=== PATIENT | female | born 1965 | race Caucasian/White ===

== ENCOUNTER 2019-02-02 16:33 | Inpatient (IN) | payer MEDICARE, MEDICAID ==
[~2019-02-02] VITALS: Ht 154.9 cm; Wt 81.9 kg
[~2019-02-02 16:33] MED LIST: ACET325T9 PO; BENZ2TAB5 PO; CLON1TAB11 PO; CLON2TAB9 PO; DIVA250T PO; DIVA500T4 PO; DOCU-109 PO; ERGO500027 PO; EZET10TA18 PO; FURO40TA4 PO; GUAI600T79 PO; IBUP400T18 PO; ILOP12TA2 PO; LISI10TA2 PO; LOPE1LIQ7 PO; LOPE2TAB27 PO; MAG30ORA PO; MAGN2400 PO; MAGN400O7 PO; MENT1LOZ3 MM; METH29OI TP; NICO1PAT25 TD; NICO4GUM5 BC; OLAN10TA5 PO; OLAN5TAB5 PO; OMEG-33 PO; OMEP20TA8 PO; POTA20TA12 PO; RISP0.2519 PO; RISP1TAB43 PO; RISP37.5 IM; RISP50DI IM; SIMV20TA3 PO; TRAZ-120 PO
[2019-02-02 17:14] LABS: BASO % 0 % (0-3); EOS # 0.3 x10^3/uL (0.0-0.7); EOS % 3 % (0-3); HEMATOCRIT 30.5 % (36.0-47.0); HEMOGLOBIN 9.9 g/dL (12.0-15.5); LYMPH # 2.1 x10^3/uL (1.0-4.8); LYMPH % 21 % (24-48); MEAN CORPUSCULAR HEMOGLOBIN 28 pg (25-35); MEAN CORPUSCULAR HGB CONC 33 g/dL (31-37); MEAN CORPUSCULAR VOLUME 84 fL (79-100); MONO % 10 % (0-9); NEUT # 6.6 x10^3uL (1.8-7.7); NEUT % 66 % (31-73); PLATELET COUNT 337 x10^3/uL (140-400); RED BLOOD COUNT 3.61 x10^6/uL (3.50-5.40); RED CELL DISTRIBUTION WIDTH 18.6 % (11.5-14.5)
[2019-02-02 17:25] LABS: ALBUMIN 2.7 g/dL (3.4-5.0); ALBUMIN/GLOBULIN RATIO 0.6 (1.0-1.7); CALCIUM 8.9 mg/dL (8.5-10.1); CREATININE 0.8 mg/dL (0.6-1.0); MAGNESIUM 1.8 mg/dL (1.8-2.4); POTASSIUM 4.1 mmol/L (3.5-5.1); TOTAL BILIRUBIN 0.1 mg/dL (0.2-1.0); TOTAL PROTEIN 6.9 g/dL (6.4-8.2)
--- NOTE | 2019-02-02 17:27 | PHYS DOC ---
Past History Past Medical History: Dementia, Hypertension, Schizophrenia Past Surgical History: No Surgical History Alcohol Use: None Drug Use: None Adult General Chief Complaint Chief Complaint: PSYCH EVALUATION HPI HPI Patient is a 53-year-old female who presents with psych evaluation. The patient has been hypersexual difficult to control she has a history of schizoaffective disorder she is coming from [place] she is with 2 members of the staff at the [facility] where she is staying Review of Systems Review of Systems Difficult to obtain due to psychosis Patient talks about [employer] and [employer] and [employer] etc. etc. etc. Allergies Allergies Allergies Coded Allergies Type Severity Reaction Last Updated Verified haloperidol Allergy Intermediate 12/21/15 Yes Physical Exam Physical Exam Constitutional: Well developed, well nourished, no acute distress, non-toxic appearance. [] HENT: Normocephalic, atraumatic, bilateral external ears normal, oropharynx moist, no oral exudates, nose normal. [] Eyes: PERRLA, EOMI, conjunctiva normal, no discharge. [] Neck: Normal range of motion, no tenderness, supple, no stridor. [] Pulmonary: Normal respiratory effort no increased work of breathing no obvious chest wall trauma Skin: Warm, dry, no erythema, no rash. [] Extremities: No tenderness, no cyanosis, no clubbing, ROM intact, no edema. [] Neurologic: Alert and oriented X 3, normal motor function, normal sensory function, no focal deficits noted. [] Psychologic: Patient appears acutely psychotic talking about several things that don't make any sense including large volumes of money law degree and medical degree from [place] etc. Current Patient Data Vital Signs Vital Signs Date Time Temp Pulse Resp B/P (MAP) Pulse Ox O2 Delivery O2 Flow Rate FiO2 02/02/19 17:05 98.1 75 18 98 Room Air BP 118/102 Lab Results Laboratory Tests Test 02/02/19 16:57 White Blood Count 10.0 x10^3/uL (4.0-11.0) Red Blood Count 3.61 x10^6/uL (3.50-5.40) Hemoglobin 9.9 g/dL (12.0-15.5) L Hematocrit 30.5 % (36.0-47.0) L Mean Corpuscular Volume 84 fL (79-100) Mean Corpuscular Hemoglobin 28 pg (25-35) Mean Corpuscular Hemoglobin Concent 33 g/dL (31-37) Red Cell Distribution Width 18.6 % (11.5-14.5) H Platelet Count 337 x10^3/uL (140-400) Neutrophils (%) (Auto) 66 % (31-73) Lymphocytes (%) (Auto) 21 % (24-48) L Monocytes (%) (Auto) 10 % (0-9) H Eosinophils (%) (Auto) 3 % (0-3) Basophils (%) (Auto) 0 % (0-3) Neutrophils # (Auto) 6.6 x10^3uL (1.8-7.7) Lymphocytes # (Auto) 2.1 x10^3/uL (1.0-4.8) Monocytes # (Auto) 1.0 x10^3/uL (0.0-1.1) Eosinophils # (Auto) 0.3 x10^3/uL (0.0-0.7) Basophils # (Auto) 0.0 x10^3/uL (0.0-0.2) Platelet Estimate Pending EKG EKG EKG shows a normal sinus rhythm rate of 76 no acute ischemic changes noted interpreted by me the time of encounter.[] Radiology/Procedures Radiology/Procedures [] Course & Med Decision Making Course & Med Decision Making Pertinent Labs and Imaging studies reviewed. (See chart for details) []53-year-old female here for geriatric psych placement patient has a history of schizoaffective disorder she does appear fairly psychotic overall but she is redirectable verbally. Currently labs are looking good patient is stable to transfer up to geriatric psych per usual protocol Dragon Disclaimer Dragon Disclaimer This electronic medical record was generated, in whole or in part, using a voice recognition dictation system. Departure Departure: Impression: Primary Impression: Schizoaffective disorder Disposition: ADMITTED INPATIENT Condition: STABLE Referrals: ALBERTINA BARTH (PCP) SHEREEN HANNA MD February 02, 2019 17:27
[2019-02-02 17:28] LABS: COLOR,URINE YELLOW
[2019-02-02 17:29] LABS: BACTERIA,URINE FEW /HPF (0-FEW); BILIRUBIN,URINE NEG (NEG); CLARITY,URINE HAZY; GLUCOSE,URINE NEG (NEG); NITRITE,URINE NEG (NEG); RBC,URINE OCC /HPF (0-2); SQUAMOUS EPITHELIAL CELL,UR OCC /LPF; UROBILINOGEN,URINE 0.2 mg/dL (0.2 mg/dL); WBC,URINE 0 /HPF (0-4)
[2019-02-02 17:46] LABS: % EOS 3 % (0-5); % LYMPHS 22 % (24-48); % MONOS 7 % (0-10); % SEGS 68 % (35-66); PLT ESTIMATE ADEQUATE (ADEQUATE)
[2019-02-02 17:47] LABS: ANISOCYTOSIS SLIGHT; HYPOCHROMIA SLIGHT
--- NOTE | 2019-02-02 18:45 | NUR ---
Admission Note with Justification for Admission to PSYCHIATRIC Patient admitted to PSYCHIATRIC for protective oversight for emergency stabilization of acute psychiatric crisis. Pt admitted from: [facility] on in [place] Mode of arrival: EMS thru ER for clearance Accompanied By: [facility] Staff/EMS Precipitating behaviors that initiated intake and admission: it was reported that patient had been Delusional, combative toward staff, making sexual comments to males about touching their butts, Propositioning others, belligerent and not re-directable. She had recently been at [facility] (discharge date 01/19/2019) and is refusing medications since arriving back at [facility]. Description of failure of out patient attempts at stabilization in previous setting list behavior and medication trials: redirection, distraction, recent hospitalization at [facility] from 12/21-01/19/19 with medicine changes. She had previously been at [facility] 11/2015. Behaviors and assessment findings upon admission: Patient was sloppily dressed in dirty clothes. She initially refused to allow assessment. Staff removed her clothing to launder and label it. She was changed into a hospital gown. Staff found a spoon and sunflower seeds while changing patient. She was found to be belligerent and threatening toward staff. 4 staff members were in room at the time of assessment. Patient has HX of herpes, no active outbreak noted at this time. Patient yelling at nurse, cursing, insulting staff and very verbally aggressive. Vital signs obtained, belongings inventoried, brief head to toe examination preformed. Pt blood pressure elevated as patient was angry and yelling, flushed in the face. Patient offered box lunch, she refused. Patient accepted glass of ice water. Patient delusional, she stated that she was in penitentiary and we were torturing her. She also stated that she had an associates, a bachelors and a doctorate degree from [employer]. 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 She made lewd sexual comments and stated that "the girls at [employer] stuck their fingers in her pussy hole". Patient then stated that she was going to bed and laid down. Patient alert, oriented to self and [place] but stated she is in [facility] because her family uses drugs and blames her. She refused to answer any of the other orientation questions and ordered staff out of her room. Plan: Admit for protective oversight for adjustment and stabilization of medications, behaviors and mood. Intense treatment regimen including groups, medication adjustments, therapy, consistent regimen for ADL's, self care, and sleep hygiene. Daily monitoring by Inpatient staff, Psychiatry, and Medical Physician.
[2019-02-02 18:53] VITALS: BP 144/101
--- NOTE | 2019-02-02 19:00 | NUR ---
Patient calling staff "Fucking bitches", "Fat old ugly lesbian" and "Fucking N-word". She demanded that staff leave the room.
[2019-02-02] MEDS ORDERED: ACETAMINOPHEN 325 MG TABLET PO PRN (20:00)
[2019-02-02] MEDS ORDERED: METHYL SALICYLATE/MENTHOL TOPICAL OINTMENT 29GM TUBE. TP PRN (20:00)
[2019-02-02] MEDS ORDERED: MAGNESIUM HYDROXIDE 2,400 MG/30 ML ORAL.SUSP. PO PRN (20:00)
[2019-02-02] MEDS ORDERED: MAG HYDROX/AL HYDROX/SIMETH 30 ML ORAL.SUSP PO PRN (20:00)
[2019-02-02] MEDS ORDERED: METO25TA4 PO (20:17)
[2019-02-02] MEDS ORDERED: ATOR10TA60 PO (20:17)
[2019-02-02] MEDS ORDERED: LISI10TA2 PO (20:17)
[2019-02-02] MEDS ORDERED: ASPI-630 PO (20:17)
[2019-02-02] MEDS ORDERED: SENN-80 PO (20:17)
[2019-02-02] MEDS ORDERED: CELE200C PO (20:17)
[2019-02-02] MEDS ORDERED: ACYC-63 PO (20:17)
[2019-02-02] MEDS ORDERED: PARO20TA99 PO (20:17)
[2019-02-02] MEDS ORDERED: ISOS30TA4 PO (20:17)
[2019-02-02] MEDS ORDERED: OMEP20CA9 PO (20:17)
--- NOTE | 2019-02-02 22:35 | PDOC ---
Exam Note: Timothy Note: Please also refer to the separate dictated note~for this date of service dictated separately. Discussed the patient with Nursing staff reviewed the chart.~Reviewed interim history and current functioning. Reviewed vital signs,~Labs/ Radiology~and current medications noted below. Continue current treatment with the changes noted in the dictated addendum note Assessment: Vital Signs: Vital Signs Date Time Temp Pulse Resp B/P (MAP) Pulse Ox O2 Delivery O2 Flow Rate FiO2 02/02/19 18:53 97.6 83 20 144/101 (115) 96 02/02/19 17:05 Room Air Labs: Laboratory Tests Test 02/02/19 16:57 White Blood Count 10.0 x10^3/uL (4.0-11.0) Red Blood Count 3.61 x10^6/uL (3.50-5.40) Hemoglobin 9.9 g/dL (12.0-15.5) L Hematocrit 30.5 % (36.0-47.0) L Mean Corpuscular Volume 84 fL (79-100) Mean Corpuscular Hemoglobin 28 pg (25-35) Mean Corpuscular Hemoglobin Concent 33 g/dL (31-37) Red Cell Distribution Width 18.6 % (11.5-14.5) H Platelet Count 337 x10^3/uL (140-400) Neutrophils (%) (Auto) 66 % (31-73) Lymphocytes (%) (Auto) 21 % (24-48) L Monocytes (%) (Auto) 10 % (0-9) H Eosinophils (%) (Auto) 3 % (0-3) Basophils (%) (Auto) 0 % (0-3) Neutrophils # (Auto) 6.6 x10^3uL (1.8-7.7) Lymphocytes # (Auto) 2.1 x10^3/uL (1.0-4.8) Monocytes # (Auto) 1.0 x10^3/uL (0.0-1.1) Eosinophils # (Auto) 0.3 x10^3/uL (0.0-0.7) Basophils # (Auto) 0.0 x10^3/uL (0.0-0.2) Segmented Neutrophils % 68 % (35-66) H Lymphocytes % 22 % (24-48) L Monocytes % 7 % (0-10) Eosinophils % 3 % (0-5) Platelet Estimate Adequate (ADEQUATE) Large Platelets Occ Hypochromasia Slight Anisocytosis Slight Urine Collection Type Unknown Urine Color Yellow Urine Clarity Hazy Urine pH 5.5 Urine Specific [place] 1.010 Urine Protein Neg (NEG-TRACE) Urine Glucose (UA) Neg mg/dL (NEG) Urine Ketones (Stick) Neg mg/dL (NEG) Urine Blood Neg (NEG) Urine Nitrite Neg (NEG) Urine Bilirubin Neg (NEG) Urine Urobilinogen Dipstick 0.2 mg/dL (0.2 mg/dL) Urine Leukocyte Esterase Neg (NEG) Urine RBC Occ /HPF (0-2) Urine WBC 0 /HPF (0-4) Urine Squamous Epithelial Cells Occ /LPF Urine Bacteria Few /HPF (0-FEW) Urine Mucus Slight /LPF Sodium Level 134 mmol/L (136-145) L Potassium Level 4.1 mmol/L (3.5-5.1) Chloride Level 98 mmol/L (98-107) Carbon Dioxide Level 28 mmol/L (21-32) Anion Gap 8 (6-14) Blood Urea Nitrogen 13 mg/dL (7-20) Creatinine 0.8 mg/dL (0.6-1.0) Estimated GFR (Cockcroft-Gault) 75.0 BUN/Creatinine Ratio 16 (6-20) Glucose Level 136 mg/dL (70-99) H Calcium Level 8.9 mg/dL (8.5-10.1) Magnesium Level 1.8 mg/dL (1.8-2.4) Total Bilirubin 0.1 mg/dL (0.2-1.0) L Aspartate Amino Transferase (AST) 6 U/L (15-37) L Alanine Aminotransferase (ALT) 8 U/L (14-59) L Alkaline Phosphatase 75 U/L (46-116) Total Protein 6.9 g/dL (6.4-8.2) Albumin 2.7 g/dL (3.4-5.0) L Albumin/Globulin Ratio 0.6 (1.0-1.7) L Current Medications: Meds: Current Medications Acetaminophen (Tylenol) 650 mg PRN Q6HRS PRN PO PAIN / TEMP; Start 02/02/19 at 20:00; Stop 02/02/19 at 20:19; Status DC Multi-Ingredient Ointment (Analgesic [place]) 1 shwetha PRN QID PRN TP MUSCLE PAIN; Start 02/02/19 at 20:00 Al Hydroxide/Mg Hydroxide (Mylanta Plus Xs) 15 ml PRN AFTMEALHC PRN PO DYSPEPSIA; Start 02/02/19 at 20:00 Magnesium Hydroxide (Milk Of Magnesia) 2,400 mg PRN QHS PRN PO CONSTIPATION; Start 02/02/19 at 20:00 Nicotine (Nicoderm Cq 14mg) 1 patch DAILY TD ; Start 02/03/19 at 09:00 Acetaminophen (Tylenol) 650 mg PRN Q6HRS PRN PO PAIN / TEMP; Start 02/02/19 at 20:00 Non-Formulary Medication (Nicotine (NICODERM CQ 14mg)) 1 patch DAILY TD ; Start 02/03/19 at 09:00; Stop 02/03/19 at 09:00; Status DC Clonazepam (KlonoPIN) 1 mg TID PO ; Start 02/03/19 at 09:00 Divalproex Sodium (Depakote Er) 1,000 mg DAILY PO ; Start 02/03/19 at 09:00 Risperidone (RisperDAL) 2 mg TID PO ; Start 02/03/19 at 09:00 Isosorbide Mononitrate (Imdur) 30 mg DAILY PO ; Start 02/03/19 at 09:00 Lisinopril (Prinivil) 10 mg BID PO ; Start 02/03/19 at 09:00 Metoprolol Tartrate (Lopressor) 12.5 mg BID PO ; Start 02/03/19 at 09:00 Acyclovir (Zovirax) 200 mg BID PO ; Start 02/03/19 at 09:00 Aspirin (Children'S Aspirin) 81 mg DAILYWBKFT PO ; Start 02/03/19 at 08:00 Atorvastatin Calcium (Lipitor) 10 mg DAILY PO ; Start 02/03/19 at 09:00 Celecoxib (CeleBREX) 200 mg DAILY PO ; Start 02/03/19 at 09:00 Pantoprazole Sodium (Protonix) 40 mg DAILYAC PO ; Start 02/03/19 at 07:30 Paroxetine HCl (Paxil) 20 mg DAILY PO ; Start 02/03/19 at 09:00 Sennosides (Senna) 8.6 mg DAILY PO ; Start 02/03/19 at 09:00 Active Scripts Active Reported Acyclovir 200 Mg Capsule 200 Mg PO BID Senna (Sennosides) 8.6 Mg Tablet 8.6 Mg PO DAILY Paxil (Paroxetine Hcl) 20 Mg Tablet 20 Mg PO DAILY Omeprazole 20 Mg Capsule.dr 20 Mg PO DAILY Metoprolol Tartrate 25 Mg Tablet 12.5 Mg PO BID Lisinopril 10 Mg Tablet 10 Mg PO BID Isosorbide Mononitrate Er (Isosorbide Mononitrate) 30 Mg Tab.er.24h 30 Mg PO DAILY Celebrex (Celecoxib) 200 Mg Capsule 200 Mg PO DAILY Atorvastatin Calcium 10 Mg Tablet 10 Mg PO DAILY Aspirin 81 Mg Tab.chew 81 Mg PO DAILY Risperdal (Risperidone) 1 Mg Tablet 2 Mg PO TID NICODERM CQ 14mg (Nicotine) 1 Each Patch.td24 1 Patch TD DAILY Remove patch QHS if pt unable to sleep Depakote Er (Divalproex Sodium) 500 Mg Tab.er.24h 1,000 Mg PO DAILY Clonazepam 1 Mg Tablet 1 Mg PO TID Tylenol (Acetaminophen) 325 Mg Tablet 650 Mg PO PRN Q6HRS PRN Max Acetaminophen dose is 4000mg in 24 hours from all sources for Adults I have reviewed the current psychotropics carefully including drug interactions. Risk benefit ratio favors no change other than as noted in my dictated progress note. Diagnosis: Problems: (1) Schizoaffective disorder BESSIE SOLORIO MD February 02, 2019 22:35
[2019-02-03 05:47] VITALS: BP 133/85
--- NOTE | 2019-02-03 06:30 | EKG ---
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
[2019-02-03] MEDS: PANTOPRAZOLE 40 MG TABLET. PO SCH (07:30)
[2019-02-03 07:37] LABS: VAL ACID 41 mcg/mL (50-100)
[2019-02-03] MEDS ORDERED: NON FORMULARY ITEM (Nicotine (NICODERM CQ 14mg) 1 PATCH) TD SCH (09:00)
--- NOTE | 2019-02-03 09:45 | NUR ---
patient fell asleep in day room chair after breakfast. Will give morning meds when she wakes up.
[2019-02-03] MEDS: ATORVASTATIN CALCIUM 10 MG TABLET. PO SCH (10:29)
[2019-02-03] MEDS: NICOTINE 14MG PATCH. TD SCH (10:29)
[2019-02-03] MEDS: CELECOXIB 100 MG CAPSULE PO SCH (10:29)
[2019-02-03] MEDS: clonazePAM 1 MG TABLET PO SCH ×3 (10:30→19:48)
[2019-02-03] MEDS: DIVALPROEX ER 500 MG TAB.ER.24H PO SCH (10:30)
[2019-02-03] MEDS: SENNOSIDES 8.6 MG TABLET PO SCH (10:31)
[2019-02-03] MEDS: LISINOPRIL 10 MG TABLET PO SCH ×2 (10:31→19:44)
[2019-02-03] MEDS: ISOSORBIDE MONONITRATE ER 30 MG TAB.ER.24H PO SCH (10:31)
[2019-02-03] MEDS: ASPIRIN 81 MG TAB.CHEW PO SCH (10:31)
[2019-02-03] MEDS: PARoxetine 20 MG TABLET PO SCH (10:31)
[2019-02-03] MEDS: METOPROLOL TART IMMED RELEASE 25 MG TABLET PO SCH ×2 (10:32→19:44)
[2019-02-03] MEDS: risperiDONE 2 MG TABLET. PO SCH ×3 (10:32→19:48)
[2019-02-03] MEDS: ACYCLOVIR 200 MG CAPSULE PO SCH ×2 (10:33→19:44)
[2019-02-03 14:06] LABS: THYROID STIM HORMONE (TSH) 1.287 uIU/mL (0.358-3.740)
--- NOTE | 2019-02-03 14:28 | NUR ---
Patient compliant with medications. She denies the need for most of them but took them whole. Bizarre conversations, flight of ideas. Patient told Dr Rosas that she was going to "jad the hospital and him for imprisoning her". Patient accused this nurse of "being in bed with her and keeping her up all night". Patient continues to make sexual comments during her conversations. She again stated that she has multiple personality disorder. That diagnosis is not indicated in her record.
[2019-02-03 15:47] VITALS: BP 104/71
--- NOTE | 2019-02-03 16:29 | NUR ---
Patient has been provided with Practical Counseling for tobacco cessation. It included a face to face interaction and the following was discussed: Recognizing danger situations, Developing coping skills,Basic cessation information. Will follow for discharge needs and discharge planning.
[2019-02-03 18:08] LABS: THYROXINE 5.2 ug/dL (4.5-12.0)
[2019-02-03] MEDS: ACETAMINOPHEN 325 MG TABLET PO PRN (18:19)
--- NOTE | 2019-02-03 18:20 | NUR ---
patient reports pain from arthritis and is asking for tylenol. PRN tylenol provided for pain per order.
--- NOTE | 2019-02-03 19:10 | HP ---
ADMIT DATE: 02/02/2019 PSYCHIATRIC ADMISSION HISTORY/EVALUATION IDENTIFYING DATA: The patient is a 53-year-old female, referred to us from [facility] in [place] by her primary care physician on account of an exacerbation of her schizoaffective disorder, bipolar type, mixed with psychotic features and acute exacerbation. The patient had been increasingly delusional, refusing her psychotropics, combative towards staff, making sexual comments to males about touching their buttocks. She is propositioning others. She had been inpatient at [facility] for about a month and had failed this resulting in this referral back to us. The patient was seen individually evening of 02/03/2019. Discussed with nursing staff, reviewed the chart. CHIEF COMPLAINT: "They were not giving me my medications for 2 days." That is the reason I was having problems. I am now back on the medications. I am doing better. 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 That is all I have." HISTORY OF PRESENT ILLNESS: The patient has a long history of schizoaffective disorder, bipolar type. She has [facility] the above [facility], but recently getting increasingly agitated, psychotic, anxious with marked mood lability, sleep and appetite changes. As noted, she was delusional and combative to the staff, making sexually inappropriate comments and touching male patient's buttocks per nursing report and propositioning others. She has had sleep and appetite changes. No active suicidal or homicidal ideation. She does have a significant history of mood swings, consistent with her diagnosis of schizoaffective disorder. PAST PSYCHIATRIC HISTORY: As above. MEDICAL HISTORY: Positive for herpes simplex, hyperlipidemia, and hypertension. ACCU-CHEKS: None. CODE STATUS: Full code. ALLERGIES TO: HALDOL. DIET: Regular. Takes medications whole, ambulates in wheelchair, independent for transfers. CURRENT PSYCHOTROPICS: Paxil 20 mg a day, Risperdal 2 mg 3 times a day, Depakote 1000 mg daily, Klonopin 1 mg t.i.d. FAMILY HISTORY: Noncontributory. SOCIAL HISTORY: Past history of alcohol abuse. No physical, sexual or elder abuse history is noted. She is not known to be a perpetrator. REACTION TO HOSPITALIZATION: The patient accepting of it. ASSETS: Supportive family, stable living at the fci. MENTAL STATUS EXAMINATION: The patient was seen individually evening of 02/03/2019. She is in her wheelchair, anxious, restless, somewhat distractable. She denied clear suicidal or homicidal ideation. She does appear paranoid, was fixated on the fact that the only diagnosis she has is multiple personality disorder. Attention span is short. Language function intact. Insight limited, judgment marginal. IMPRESSION: Schizoaffective disorder, bipolar type, mixed with psychotic features, in acute exacerbation; anxiety disorder, unspecified; impulse control disorder, unspecified. Rest as above. PLAN: Admit to Geropsychiatry Unit at [facility]. I will see the patient individually from a psychiatric standpoint. Medical followup per Dr. Rosas. Continue the patient on her current psychotropics. Check a valproic acid level, adjust to reach therapeutic level. We will make further changes in psychotropics depending on baseline assessment. MAN Yaron SOLORIO MD DR: MELODIE/nancy JOB#: [id number] / [id number]
--- NOTE | 2019-02-03 22:02 | CONS ---
DATE OF CONSULTATION: 02/03/2019 REASON FOR CONSULTATION: Medical management. HISTORY OF PRESENT ILLNESS: This is a 53-year-old female patient, a resident at [facility] on in [place] and [facility] on account of being delusional, combative towards staff, making sexual commenced to males about touching the butts for propositioning others, all this in a background of schizoaffective disorder, bipolar type with acute exacerbation and psychosis. Medically, she is known to have hypertension and had history of herpes. She also has gastroesophageal reflux disease and nicotine use disorder as well as hyperlipidemia. PAST SURGICAL HISTORY: Unremarkable. FAMILY HISTORY: Unremarkable. SOCIAL HISTORY: She apparently continues to smoke, but does not drink alcohol or use any recreational drugs. FAMILY HISTORY: Unremarkable. PHYSICAL EXAMINATION: GENERAL: On examining her, she looked well and was clearly in no apparent respiratory distress. No pallor, jaundice, cyanosis, or thyromegaly. No jugular venous distension. No limb edema. VITAL SIGNS: Her heart rate was 74, blood pressure 133/85, temperature was 97.2, respiratory rate was 18 and oxygen saturation was 98%. HEAD, EYES, EARS, NOSE AND THROAT: Showed normocephalic, atraumatic. NECK: Supple. HEART: Showed normal first and second heart sounds. No gallop, rub or murmur. CHEST: Clear to auscultation. No crepitation or rhonchi. ABDOMEN: Distended, soft, nontender. NEUROLOGIC: She was awake, alert, but extremely paranoid with grandiose delusions. However, all her cranial nerves are intact. EXTREMITIES: She moves extremities without difficulty, although she is mostly wheelchair bound. LABORATORY DATA: Showed that her white cell count was 10,000, hemoglobin 10, hematocrit 30, MCV 84 and platelet count 337,000 with normal manual differential. Her chemistry showed a serum sodium 134, potassium 4.1, chloride 98, bicarbonate 28, anion gap of 8, BUN 13, creatinine 0.8, estimated GFR was 75 mL per minute. Her glucose was 136, calcium was 8.9, magnesium was 1.8. Total bilirubin, AST, ALT, alkaline phosphatase were normal. Total protein 6.9, albumin 2.7. Urinalysis showed the urine was yellow, hazy with a pH of 5.5, specific gravity of 1.010. The urine was negative for protein, glucose, ketones, blood, nitrite and leukocyte esterase. There are no rbc's, no wbc's and very few bacteria. Her tox screen showed valproic acid was 41 mcg/mL. IMPRESSION: In summary, this is a 53-year-old female patient, a resident at [facility] on [facility], who was admitted on account of being delusional, combative towards staff, making sexual comments to males about touching their butts, prepositioning others, all this in a background of schizoaffective disorder. Medically, she has multiple medical problems including hypertension, hyperlipidemia. She also has gastroesophageal reflux disease, nicotine or cigarette use disorder. Medically, she seemed to be all in all stable. Her vital signs are stable. All her lab works are within acceptable range. She does have normochromic normocytic anemia with a hemoglobin 10, hematocrit 30. I will continue all her current medications for time being and she is also on Celebrex, so I will check her serum iron, TIBC, and serum ferritin to make sure that she is not using any iron and treat that accordingly. Thank you, Dr. Maher for allowing me to participate in the care of this patient. RICK MARITNEZ MD DR: MARIAJOSE/nancy JOB#: [id number] / [id number]
[2019-02-03 22:07] LABS: HEMOGLOBIN A1C 6.5 % (4.8-5.6)
--- NOTE | 2019-02-03 22:28 | PDOC ---
Exam Note: Timothy Note: Please also refer to the separate dictated note~for this date of service dictated separately.~Patient seen individually. Discussed the patient with Nursing staff reviewed the chart.~Reviewed interim history and current functioning. Reviewed vital signs,~Labs/ Radiology~and current medications noted below. Continue current treatment with the changes noted in the dictated addendum note Assessment: Vital Signs: Vital Signs Date Time Temp Pulse Resp B/P (MAP) Pulse Ox O2 Delivery O2 Flow Rate FiO2 02/03/19 19:44 73 104/71 02/03/19 15:47 97.2 20 96 Room Air I&O Intake and Output 02/03/19 07:00 Intake Total 0 ml Balance 0 ml Intake Oral 0 ml Labs: Laboratory Tests Test 02/03/19 07:05 Valproic Acid Level 41 mcg/mL (50-100) L Valproic Acid Last Dose Date 02/02/19 Valproic Acid Last Dose Time 2100 Current Medications: Meds: Current Medications Acetaminophen (Tylenol) 650 mg PRN Q6HRS PRN PO PAIN / TEMP; Start 02/02/19 at 20:00; Stop 02/02/19 at 20:19; Status DC Multi-Ingredient Ointment (Analgesic [place]) 1 shwetha PRN QID PRN TP MUSCLE PAIN; Start 02/02/19 at 20:00 Al Hydroxide/Mg Hydroxide (Mylanta Plus Xs) 15 ml PRN AFTMEALHC PRN PO DYSPEPSIA; Start 02/02/19 at 20:00 Magnesium Hydroxide (Milk Of Magnesia) 2,400 mg PRN QHS PRN PO CONSTIPATION; Start 02/02/19 at 20:00 Nicotine (Nicoderm Cq 14mg) 1 patch DAILY TD Last administered on 02/03/19at 10:29; Start 02/03/19 at 09:00 Acetaminophen (Tylenol) 650 mg PRN Q6HRS PRN PO PAIN / TEMP Last administered on 02/03/19at 18:19; Start 02/02/19 at 20:00 Non-Formulary Medication (Nicotine (NICODERM CQ 14mg)) 1 patch DAILY TD ; Start 02/03/19 at 09:00; Stop 02/03/19 at 09:00; Status DC Clonazepam (KlonoPIN) 1 mg TID PO Last administered on 02/03/19at 19:48; Start 02/03/19 at 09:00 Divalproex Sodium (Depakote Er) 1,000 mg DAILY PO Last administered on 02/03/19 10:30; Start 02/03/19 at 09:00 Risperidone (RisperDAL) 2 mg TID PO Last administered on 02/03/19 19:48; Start 02/03/19 at 09:00 Isosorbide Mononitrate (Imdur) 30 mg DAILY PO Last administered on 02/03/19 10:31; Start 02/03/19 at 09:00 Lisinopril (Prinivil) 10 mg BID PO Last administered on 02/03/19 19:44; Start 02/03/19 at 09:00 Metoprolol Tartrate (Lopressor) 12.5 mg BID PO Last administered on 02/03/19 19:44; Start 02/03/19 at 09:00 Acyclovir (Zovirax) 200 mg BID PO Last administered on 02/03/19 19:44; Start 02/03/19 at 09:00 Aspirin (Children'S Aspirin) 81 mg DAILYWBKFT PO Last administered on 02/03/19 10:31; Start 02/03/19 at 08:00 Atorvastatin Calcium (Lipitor) 10 mg DAILY PO Last administered on 02/03/19 10:29; Start 02/03/19 at 09:00 Celecoxib (CeleBREX) 200 mg DAILY PO Last administered on 02/03/19 10:29; Start 02/03/19 at 09:00 Pantoprazole Sodium (Protonix) 40 mg DAILYAC PO Last administered on 02/03/19 07:30; Start 02/03/19 at 07:30 Paroxetine HCl (Paxil) 20 mg DAILY PO Last administered on 02/03/19 10:31; Start 02/03/19 at 09:00 Sennosides (Senna) 8.6 mg DAILY PO Last administered on 02/03/19 10:31; Start 02/03/19 at 09:00 Active Scripts Active Reported Acyclovir 200 Mg Capsule 200 Mg PO BID Senna (Sennosides) 8.6 Mg Tablet 8.6 Mg PO DAILY Paxil (Paroxetine Hcl) 20 Mg Tablet 20 Mg PO DAILY Omeprazole 20 Mg Capsule.dr 20 Mg PO DAILY Metoprolol Tartrate 25 Mg Tablet 12.5 Mg PO BID Lisinopril 10 Mg Tablet 10 Mg PO BID Isosorbide Mononitrate Er (Isosorbide Mononitrate) 30 Mg Tab.er.24h 30 Mg PO DAILY Celebrex (Celecoxib) 200 Mg Capsule 200 Mg PO DAILY Atorvastatin Calcium 10 Mg Tablet 10 Mg PO DAILY Aspirin 81 Mg Tab.chew 81 Mg PO DAILY Risperdal (Risperidone) 1 Mg Tablet 2 Mg PO TID NICODERM CQ 14mg (Nicotine) 1 Each Patch.td24 1 Patch TD DAILY Remove patch QHS if pt unable to sleep Depakote Er (Divalproex Sodium) 500 Mg Tab.er.24h 1,000 Mg PO DAILY Clonazepam 1 Mg Tablet 1 Mg PO TID Tylenol (Acetaminophen) 325 Mg Tablet 650 Mg PO PRN Q6HRS PRN Max Acetaminophen dose is 4000mg in 24 hours from all sources for Adults I have reviewed the current psychotropics carefully including drug interactions. Risk benefit ratio favors no change other than as noted in my dictated progress note. Diagnosis: Problems: (1) Schizoaffective disorder (2) Anxiety disorder (3) Impulse control disorder (4) Schizoaffective disorder, chronic condition with acute exacerbation (5) Psychosis, atypical BESSIE SOLORIO MD February 03, 2019 22:28
[2019-02-04 06:14] VITALS: BP 114/76
[2019-02-04] MEDS: ISOSORBIDE MONONITRATE ER 30 MG TAB.ER.24H PO SCH (07:51)
[2019-02-04] MEDS: ASPIRIN 81 MG TAB.CHEW PO SCH (07:51)
[2019-02-04] MEDS: SENNOSIDES 8.6 MG TABLET PO SCH (07:51)
[2019-02-04] MEDS: PANTOPRAZOLE 40 MG TABLET. PO SCH (07:51)
[2019-02-04] MEDS: ATORVASTATIN CALCIUM 10 MG TABLET. PO SCH (07:52)
[2019-02-04] MEDS: CELECOXIB 100 MG CAPSULE PO SCH (07:52)
[2019-02-04] MEDS: LISINOPRIL 10 MG TABLET PO SCH ×2 (07:52→19:44)
[2019-02-04] MEDS: PARoxetine 20 MG TABLET PO SCH (07:52)
[2019-02-04] MEDS: DIVALPROEX ER 500 MG TAB.ER.24H PO SCH (07:53)
[2019-02-04] MEDS: METOPROLOL TART IMMED RELEASE 25 MG TABLET PO SCH ×2 (07:53→19:43)
[2019-02-04] MEDS: clonazePAM 1 MG TABLET PO SCH ×3 (07:53→19:50)
[2019-02-04] MEDS: ACYCLOVIR 200 MG CAPSULE PO SCH ×2 (07:53→19:50)
[2019-02-04] MEDS: risperiDONE 2 MG TABLET. PO SCH ×3 (07:53→19:44)
[2019-02-04 07:55] LABS: VAL ACID 58 mcg/mL (50-100)
[2019-02-04] MEDS: NICOTINE 14MG PATCH. TD SCH (07:55)
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
[2019-02-04 16:44] VITALS: BP 108/67
[2019-02-04] MEDS: FERROUS SULFATE 325 MG TABLET. PO SCH (19:50)
[2019-02-04] MEDS: ASCORBIC ACID 500 MG TABLET PO SCH (19:50)
--- NOTE | 2019-02-04 22:28 | PDOC ---
Exam Note: Timothy Note: Please also refer to the separate dictated note~for this date of service dictated separately.~Patient seen individually. Discussed the patient with Nursing staff reviewed the chart.~Reviewed interim history and current functioning. Reviewed vital signs,~Labs/ Radiology~and current medications noted below. Continue current treatment with the changes noted in the dictated addendum note Assessment: Vital Signs: Vital Signs Date Time Temp Pulse Resp B/P (MAP) Pulse Ox O2 Delivery O2 Flow Rate FiO2 02/04/19 19:44 78 108/67 02/04/19 16:44 98.7 14 94 02/03/19 15:47 Room Air I&O Intake and Output 02/04/19 07:00 Intake Total 720 ml Balance 720 ml Intake Oral 720 ml Labs: Laboratory Tests Test 02/04/19 07:10 Iron Level 38 ug/dL (50-170) L Total Iron Binding Capacity 351 ug/dL (250-450) Iron Saturation 11 % (15-34) L Ferritin 19 ng/mL (8-252) Valproic Acid Level 58 mcg/mL (50-100) Valproic Acid Last Dose Date 02/03/19 Valproic Acid Last Dose Time 0900 Current Medications: Meds: Current Medications Acetaminophen (Tylenol) 650 mg PRN Q6HRS PRN PO PAIN / TEMP; Start 02/02/19 at 20:00; Stop 02/02/19 at 20:19; Status DC Multi-Ingredient Ointment (Analgesic [place]) 1 shwetha PRN QID PRN TP MUSCLE PAIN; Start 02/02/19 at 20:00 Al Hydroxide/Mg Hydroxide (Mylanta Plus Xs) 15 ml PRN AFTMEALHC PRN PO DYSPEPSIA; Start 02/02/19 at 20:00 Magnesium Hydroxide (Milk Of Magnesia) 2,400 mg PRN QHS PRN PO CONSTIPATION; Start 02/02/19 at 20:00 Nicotine (Nicoderm Cq 14mg) 1 patch DAILY TD Last administered on 02/04/19at 07:55; Start 02/03/19 at 09:00 Acetaminophen (Tylenol) 650 mg PRN Q6HRS PRN PO PAIN / TEMP Last administered on 02/03/19at 18:19; Start 02/02/19 at 20:00 Non-Formulary Medication (Nicotine (NICODERM CQ 14mg)) 1 patch DAILY TD ; Start 02/03/19 at 09:00; Stop 02/03/19 at 09:00; Status DC Clonazepam (KlonoPIN) 1 mg TID PO Last administered on 02/04/19 19:50; Start 02/03/19 at 09:00 Divalproex Sodium (Depakote Er) 1,000 mg DAILY PO Last administered on 02/04/19 07:53; Start 02/03/19 at 09:00 Risperidone (RisperDAL) 2 mg TID PO Last administered on 02/04/19 19:44; Start 02/03/19 at 09:00 Isosorbide Mononitrate (Imdur) 30 mg DAILY PO Last administered on 02/04/19 07:51; Start 02/03/19 at 09:00 Lisinopril (Prinivil) 10 mg BID PO Last administered on 02/04/19 19:44; Start 02/03/19 at 09:00 Metoprolol Tartrate (Lopressor) 12.5 mg BID PO Last administered on 02/04/19 19:43; Start 02/03/19 at 09:00 Acyclovir (Zovirax) 200 mg BID PO Last administered on 02/04/19 19:50; Start 02/03/19 at 09:00 Aspirin (Children'S Aspirin) 81 mg DAILYWBKFT PO Last administered on 02/04/19 07:51; Start 02/03/19 at 08:00 Atorvastatin Calcium (Lipitor) 10 mg DAILY PO Last administered on 02/04/19 07:52; Start 02/03/19 at 09:00 Celecoxib (CeleBREX) 200 mg DAILY PO Last administered on 02/04/19 07:52; Start 02/03/19 at 09:00 Pantoprazole Sodium (Protonix) 40 mg DAILYAC PO Last administered on 02/04/19 07:51; Start 02/03/19 at 07:30 Paroxetine HCl (Paxil) 20 mg DAILY PO Last administered on 02/04/19 07:52; Start 02/03/19 at 09:00; Stop 02/04/19 at 18:28; Status DC Sennosides (Senna) 8.6 mg DAILY PO Last administered on 02/04/19 07:51; Start 02/03/19 at 09:00 Vitamin D (Vitamin D3) 50,000 unit WEEKLY PO ; Start 02/05/19 at 09:00 Ferrous Sulfate (Feosol) 325 mg BID PO Last administered on 02/04/19at 19:50; Start 02/04/19 at 21:00 Ascorbic Acid (Vitamin C) 500 mg BID PO Last administered on 02/04/19at 19:50; Start 02/04/19 at 21:00 Paroxetine HCl (Paxil) 15 mg DAILY PO ; Start 02/05/19 at 09:00; Stop 02/06/19 at 23:50 Paroxetine HCl (Paxil) 10 mg DAILY PO ; Start 02/07/19 at 09:00 Active Scripts Active Reported Acyclovir 200 Mg Capsule 200 Mg PO BID Senna (Sennosides) 8.6 Mg Tablet 8.6 Mg PO DAILY Paxil (Paroxetine Hcl) 20 Mg Tablet 20 Mg PO DAILY Omeprazole 20 Mg Capsule.dr 20 Mg PO DAILY Metoprolol Tartrate 25 Mg Tablet 12.5 Mg PO BID Lisinopril 10 Mg Tablet 10 Mg PO BID Isosorbide Mononitrate Er (Isosorbide Mononitrate) 30 Mg Tab.er.24h 30 Mg PO DAILY Celebrex (Celecoxib) 200 Mg Capsule 200 Mg PO DAILY Atorvastatin Calcium 10 Mg Tablet 10 Mg PO DAILY Aspirin 81 Mg Tab.chew 81 Mg PO DAILY Risperdal (Risperidone) 1 Mg Tablet 2 Mg PO TID NICODERM CQ 14mg (Nicotine) 1 Each Patch.td24 1 Patch TD DAILY Remove patch QHS if pt unable to sleep Depakote Er (Divalproex Sodium) 500 Mg Tab.er.24h 1,000 Mg PO DAILY Clonazepam 1 Mg Tablet 1 Mg PO TID Tylenol (Acetaminophen) 325 Mg Tablet 650 Mg PO PRN Q6HRS PRN Max Acetaminophen dose is 4000mg in 24 hours from all sources for Adults I have reviewed the current psychotropics carefully including drug interactions. Risk benefit ratio favors no change other than as noted in my dictated progress note. Diagnosis: Problems: (1) Schizoaffective disorder (2) Anxiety disorder (3) Impulse control disorder (4) Schizoaffective disorder, chronic condition with acute exacerbation (5) Psychosis, atypical BESSIE SOLORIO MD February 04, 2019 22:28
[2019-02-05 05:58] VITALS: BP 133/83
[2019-02-05] MEDS: ACETAMINOPHEN 325 MG TABLET PO PRN ×2 (06:22→15:02)
--- NOTE | 2019-02-05 06:25 | NUR ---
Pt reports back pain. Prn tylenol given.
[2019-02-05] MEDS: CELECOXIB 100 MG CAPSULE PO SCH (08:04)
[2019-02-05] MEDS: PANTOPRAZOLE 40 MG TABLET. PO SCH (08:04)
[2019-02-05] MEDS: FERROUS SULFATE 325 MG TABLET. PO SCH ×2 (08:04→19:46)
[2019-02-05] MEDS: DIVALPROEX ER 500 MG TAB.ER.24H PO SCH (08:04)
[2019-02-05] MEDS: ASPIRIN 81 MG TAB.CHEW PO SCH (08:04)
[2019-02-05] MEDS: ISOSORBIDE MONONITRATE ER 30 MG TAB.ER.24H PO SCH (08:05)
[2019-02-05] MEDS: ATORVASTATIN CALCIUM 10 MG TABLET. PO SCH (08:05)
[2019-02-05] MEDS: clonazePAM 1 MG TABLET PO SCH ×3 (08:05→19:46)
[2019-02-05] MEDS: METOPROLOL TART IMMED RELEASE 25 MG TABLET PO SCH ×2 (08:06→19:48)
[2019-02-05] MEDS: PARoxetine 10 MG TABLET PO SCH (08:07)
[2019-02-05] MEDS: CHOLECALCIFEROL (VITAMIN D3) 50,000 UNIT CAPSULE PO SCH (08:07)
[2019-02-05] MEDS: NICOTINE 14MG PATCH. TD SCH (08:09)
[2019-02-05] MEDS: LISINOPRIL 10 MG TABLET PO SCH ×2 (08:09→19:46)
[2019-02-05] MEDS: SENNOSIDES 8.6 MG TABLET PO SCH (08:09)
[2019-02-05] MEDS: ASCORBIC ACID 500 MG TABLET PO SCH ×2 (08:09→19:46)
[2019-02-05] MEDS: risperiDONE 2 MG TABLET. PO SCH ×3 (08:09→19:46)
[2019-02-05] MEDS: ACYCLOVIR 200 MG CAPSULE PO SCH ×2 (08:09→19:50)
--- NOTE | 2019-02-05 10:11 | NUR ---
Pt is calm, cooperative, compliant, and calm. No agitation, hallucinations, or delusions noted. Pt is compliant with medication and assessment.
--- NOTE | 2019-02-05 10:15 | NUR ---
Attempted to meet and complete Activity Therapy Assessment; however, Pt. was sleeping.
[2019-02-05 16:34] VITALS: BP 101/65
--- NOTE | 2019-02-05 18:46 | PN ---
DATE: 02/04/2019 PSYCHIATRIC PROGRESS NOTE This late entry 02/04/2019 covers elements not covered in my initial note. SUBJECTIVE: I met with the patient at some length individually in the evening of 02/04/2019. The patient slept 6-1/2 hours previous night. The patient current report has been "bizarre." She has been somewhat grandiose, delusional, flirting with male, nursing staff and nursing aides. At times, she was noted talking to herself in the hallways. Valproic acid level is 58 therapeutic. There is a question whether the ____ worsening of deena. REVIEW OF SYSTEMS: Ambulation impaired, in wheelchair with independent transfers. No CV, , pulmonary, eye, ENT system symptoms on review. MENTAL STATUS EXAM: Oriented to herself and situation. Speech coherent, rapid at times. Abstraction fair, computation impaired, language function intact, attention span short. Mood and affect quite grandiose, labile, and I addressed at length with her individually to improve insight. She is unable to remember what antipsychotic she did best with in the past. She is currently on 6 mg maximum dosage of Risperdal having the above symptoms despite all of this and her Depakote has been therapeutic; Klonopin 1 mg t.i.d. IMPRESSION: Schizoaffective disorder, bipolar type, mixed with psychotic features versus bipolar disorder, manic with psychotic features; cognitive disorder, unspecified. Rest unchanged. PLAN: We had a review of her psychotropics. As a first step, we will reduce the Paxil from 20 mg a day to 15 mg a day and 3 days later to 10 mg a day to reduce the propensity of SSRIs to worsen her deena. Continue rest unchanged. We will have to look at alternate options for atypical antipsychotics after that including Clozaril and even ____ [place]. BESSIE SOLORIO MD DR: MELODIE/nancy JOB#: [id number] / [id number]
--- NOTE | 2019-02-05 19:55 | PN ---
DATE: 02/05/2019 PSYCHIATRIC PROGRESS NOTE This note covers elements not covered in my template note. Overall, the patient remains somewhat grandiose, at times hyperverbal. 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 We will get her past psychiatric records to clarify what options we have in regard to psychotropics. She states she has been on lithium in the past, but had swelling of her face, refuses to take it again. She is on the maximum dosage of Risperdal 6 mg a day. I have reduced the Paxil since it could be worsening her deena Depakote and Klonopin have been continued. Valproic acid level is therapeutic. REVIEW OF SYSTEMS: Ambulation impaired, in wheelchair. No CV, , pulmonary, eye system symptoms on review. MENTAL STATUS EXAM: Oriented to herself and situation. Speech is coherent, rapid at times. Abstraction fair, computation impaired, language function intact, attention span short. Mood is grandiose, still psychotic. Insight very limited. LABORATORY DATA: Reviewed. IMPRESSION: Unchanged from initial note. PLAN: No change from initial note. MAN Yaron SOLORIO MD DR: MELODIE/nancy JOB#: [id number] / [id number]
[2019-02-06 07:06] VITALS: BP 118/71
[2019-02-06] MEDS: CELECOXIB 100 MG CAPSULE PO SCH (08:03)
[2019-02-06] MEDS: ASPIRIN 81 MG TAB.CHEW PO SCH (08:03)
[2019-02-06] MEDS: PANTOPRAZOLE 40 MG TABLET. PO SCH (08:03)
[2019-02-06] MEDS: FERROUS SULFATE 325 MG TABLET. PO SCH ×2 (08:04→19:48)
[2019-02-06] MEDS: DIVALPROEX ER 500 MG TAB.ER.24H PO SCH (08:04)
[2019-02-06] MEDS: clonazePAM 1 MG TABLET PO SCH ×3 (08:14→19:46)
[2019-02-06] MEDS: ATORVASTATIN CALCIUM 10 MG TABLET. PO SCH (08:14)
[2019-02-06] MEDS: ISOSORBIDE MONONITRATE ER 30 MG TAB.ER.24H PO SCH (08:14)
[2019-02-06] MEDS: LISINOPRIL 10 MG TABLET PO SCH ×2 (08:15→19:48)
[2019-02-06] MEDS: PARoxetine 10 MG TABLET PO SCH (08:15)
[2019-02-06] MEDS: risperiDONE 2 MG TABLET. PO SCH ×3 (08:15→19:45)
[2019-02-06] MEDS: SENNOSIDES 8.6 MG TABLET PO SCH (08:22)
[2019-02-06] MEDS: ASCORBIC ACID 500 MG TABLET PO SCH ×2 (08:22→19:48)
[2019-02-06] MEDS: NICOTINE 14MG PATCH. TD SCH (08:22)
[2019-02-06] MEDS: ACYCLOVIR 200 MG CAPSULE PO SCH ×2 (08:22→21:22)
[2019-02-06] MEDS: METOPROLOL TART IMMED RELEASE 25 MG TABLET PO SCH ×2 (08:25→19:47)
--- NOTE | 2019-02-06 09:50 | NUR ---
No agitation, hallucinations, or delusions noted. Pt is calm, cooperative, compliant, and calm. Pt is compliant with medication and assessment.
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
[2019-02-06 16:09] VITALS: BP 122/67
--- NOTE | 2019-02-06 22:40 | NUR ---
Nursing Note Pt is wandering the halls, but is cooperative and compliant with meds and assessment. Denies complaints this pm.
--- NOTE | 2019-02-06 22:53 | PN ---
DATE: 02/06/2019 SUBJECTIVE: The patient was seen today, met with the staff, chart reviewed. Staff reports no major problems. The patient apparently has been on antipsychotic drugs for almost 20 years and apparently she stopped taking most of her medication about 3 years ago. At that time, she was taking Zyprexa. The patient has been having tremors of both extremities. The patient apparently spent about [address] [facility] in [place] for decompensating with her problems after she stopped taking her medications. MEDICATIONS: Reviewed. Currently on Paxil 10 mg daily, ferrous sulfate 325 mg b.i.d., Celebrex 200 mg daily, Lipitor 10 mg daily, Zovirax 200 mg b.i.d., metoprolol 12.5 mg b.i.d., lisinopril 10 mg b.i.d., Imdur 30 mg daily, Risperdal 2 mg t.i.d. p.o., Depakote 1000 mg daily, Klonopin 1 mg t.i.d. The patient is not having any side effects to the medications. The patient apparently has been participating most of the activities. OBSERVATION: Vital signs: Temperature 98.4, blood pressure 122/67, respirations 20, pulse 65, O2 sat 96%. The patient is not having any side effects to the medications. LABORATORY DATA: The patient's lab reviewed. She is not presenting with any major physical problems except for on tremors. ASSESSMENT: Schizoaffective disorder, bipolar type, mixed with psychotic features; anxiety disorder, unspecified; and impulse control disorder, unspecified. ALEE KNIGHT MD DR: Heidi JOB#: [id number] / [id number]
--- NOTE | 2019-02-06 23:42 | PDOC ---
Exam Note: Timothy Note: Late entry for DOS 02/05/2019. Please also refer to the separate dictated note~for this date of service dictated separately.~Patient seen individually. Discussed the patient with Nursing staff reviewed the chart.~Reviewed interim history and current functioning. Reviewed vital signs,~Labs/ Radiology~and current medications noted below. Continue current treatment with the changes noted in the dictated addendum note Assessment: Vital Signs: Vital Signs Date Time Temp Pulse Resp B/P (MAP) Pulse Ox O2 Delivery O2 Flow Rate FiO2 02/06/19 19:48 65 122/67 02/06/19 16:09 98.4 20 96 02/03/19 15:47 Room Air I&O Intake and Output 02/06/19 06:59 Intake Total 960 ml Balance 960 ml Intake Oral 960 ml Current Medications: Meds: Current Medications Acetaminophen (Tylenol) 650 mg PRN Q6HRS PRN PO PAIN / TEMP; Start 02/02/19 at 20:00; Stop 02/02/19 at 20:19; Status DC Multi-Ingredient Ointment (Analgesic [place]) 1 shwetha PRN QID PRN TP MUSCLE PAIN; Start 02/02/19 at 20:00 Al Hydroxide/Mg Hydroxide (Mylanta Plus Xs) 15 ml PRN AFTMEALHC PRN PO DYSPEPSIA; Start 02/02/19 at 20:00 Magnesium Hydroxide (Milk Of Magnesia) 2,400 mg PRN QHS PRN PO CONSTIPATION; Start 02/02/19 at 20:00 Nicotine (Nicoderm Cq 14mg) 1 patch DAILY TD Last administered on 02/06/19at 08:22; Start 02/03/19 at 09:00 Acetaminophen (Tylenol) 650 mg PRN Q6HRS PRN PO PAIN / TEMP Last administered on 02/05/19at 15:02; Start 02/02/19 at 20:00 Non-Formulary Medication (Nicotine (NICODERM CQ 14mg)) 1 patch DAILY TD ; Start 02/03/19 at 09:00; Stop 02/03/19 at 09:00; Status DC Clonazepam (KlonoPIN) 1 mg TID PO Last administered on 02/06/19at 19:46; Start 02/03/19 at 09:00 Divalproex Sodium (Depakote Er) 1,000 mg DAILY PO Last administered on 02/06/19 08:04; Start 02/03/19 at 09:00 Risperidone (RisperDAL) 2 mg TID PO Last administered on 02/06/19 19:45; Start 02/03/19 at 09:00 Isosorbide Mononitrate (Imdur) 30 mg DAILY PO Last administered on 02/06/19 08:14; Start 02/03/19 at 09:00 Lisinopril (Prinivil) 10 mg BID PO Last administered on 02/06/19 19:48; Start 02/03/19 at 09:00 Metoprolol Tartrate (Lopressor) 12.5 mg BID PO Last administered on 02/06/19 19:47; Start 02/03/19 at 09:00 Acyclovir (Zovirax) 200 mg BID PO Last administered on 02/06/19 21:22; Start 02/03/19 at 09:00 Aspirin (Children'S Aspirin) 81 mg DAILYWBKFT PO Last administered on 02/06/19 08:03; Start 02/03/19 at 08:00 Atorvastatin Calcium (Lipitor) 10 mg DAILY PO Last administered on 02/06/19 08:14; Start 02/03/19 at 09:00 Celecoxib (CeleBREX) 200 mg DAILY PO Last administered on 02/06/19 08:03; Start 02/03/19 at 09:00 Pantoprazole Sodium (Protonix) 40 mg DAILYAC PO Last administered on 02/06/19 08:03; Start 02/03/19 at 07:30 Paroxetine HCl (Paxil) 20 mg DAILY PO Last administered on 02/04/19 07:52; Start 02/03/19 at 09:00; Stop 02/04/19 at 18:28; Status DC Sennosides (Senna) 8.6 mg DAILY PO Last administered on 02/06/19 08:22; Start 02/03/19 at 09:00 Vitamin D (Vitamin D3) 50,000 unit WEEKLY PO Last administered on 02/05/19 08:07; Start 02/05/19 at 09:00 Ferrous Sulfate (Feosol) 325 mg BID PO Last administered on 02/06/19 19:48; Start 02/04/19 at 21:00 Ascorbic Acid (Vitamin C) 500 mg BID PO Last administered on 02/06/19at 19:48; Start 02/04/19 at 21:00 Paroxetine HCl (Paxil) 15 mg DAILY PO Last administered on 02/06/19at 08:15; Start 02/05/19 at 09:00; Stop 02/06/19 at 23:50 Paroxetine HCl (Paxil) 10 mg DAILY PO ; Start 02/07/19 at 09:00 Active Scripts Active Reported Acyclovir 200 Mg Capsule 200 Mg PO BID Senna (Sennosides) 8.6 Mg Tablet 8.6 Mg PO DAILY Paxil (Paroxetine Hcl) 20 Mg Tablet 20 Mg PO DAILY Omeprazole 20 Mg Capsule.dr 20 Mg PO DAILY Metoprolol Tartrate 25 Mg Tablet 12.5 Mg PO BID Lisinopril 10 Mg Tablet 10 Mg PO BID Isosorbide Mononitrate Er (Isosorbide Mononitrate) 30 Mg Tab.er.24h 30 Mg PO DAILY Celebrex (Celecoxib) 200 Mg Capsule 200 Mg PO DAILY Atorvastatin Calcium 10 Mg Tablet 10 Mg PO DAILY Aspirin 81 Mg Tab.chew 81 Mg PO DAILY Risperdal (Risperidone) 1 Mg Tablet 2 Mg PO TID NICODERM CQ 14mg (Nicotine) 1 Each Patch.td24 1 Patch TD DAILY Remove patch QHS if pt unable to sleep Depakote Er (Divalproex Sodium) 500 Mg Tab.er.24h 1,000 Mg PO DAILY Clonazepam 1 Mg Tablet 1 Mg PO TID Tylenol (Acetaminophen) 325 Mg Tablet 650 Mg PO PRN Q6HRS PRN Max Acetaminophen dose is 4000mg in 24 hours from all sources for Adults I have reviewed the current psychotropics carefully including drug interactions. Risk benefit ratio favors no change other than as noted in my dictated progress note. Diagnosis: Problems: (1) Schizoaffective disorder (2) Anxiety disorder (3) Impulse control disorder (4) Schizoaffective disorder, chronic condition with acute exacerbation (5) Psychosis, atypical BESSIE SOLORIO MD February 06, 2019 23:42
[2019-02-07 05:51] VITALS: BP 125/79
[2019-02-07] MEDS: PANTOPRAZOLE 40 MG TABLET. PO SCH (08:15)
[2019-02-07] MEDS: CELECOXIB 100 MG CAPSULE PO SCH (08:15)
[2019-02-07] MEDS: ASPIRIN 81 MG TAB.CHEW PO SCH (08:15)
[2019-02-07] MEDS: DIVALPROEX ER 500 MG TAB.ER.24H PO SCH (08:18)
[2019-02-07] MEDS: ISOSORBIDE MONONITRATE ER 30 MG TAB.ER.24H PO SCH (08:18)
[2019-02-07] MEDS: FERROUS SULFATE 325 MG TABLET. PO SCH ×2 (08:18→19:19)
[2019-02-07] MEDS: clonazePAM 1 MG TABLET PO SCH ×3 (08:19→19:21)
[2019-02-07] MEDS: ATORVASTATIN CALCIUM 10 MG TABLET. PO SCH (08:19)
[2019-02-07] MEDS: SENNOSIDES 8.6 MG TABLET PO SCH (08:20)
[2019-02-07] MEDS: LISINOPRIL 10 MG TABLET PO SCH ×2 (08:20→19:20)
[2019-02-07] MEDS: METOPROLOL TART IMMED RELEASE 25 MG TABLET PO SCH ×2 (08:20→19:19)
[2019-02-07] MEDS: PARoxetine 10 MG TABLET PO SCH (08:20)
[2019-02-07] MEDS: risperiDONE 2 MG TABLET. PO SCH ×3 (08:20→19:22)
[2019-02-07] MEDS: ACYCLOVIR 200 MG CAPSULE PO SCH ×2 (08:21→19:22)
[2019-02-07] MEDS: NICOTINE 14MG PATCH. TD SCH (08:21)
[2019-02-07] MEDS: ASCORBIC ACID 500 MG TABLET PO SCH ×2 (08:21→19:20)
[2019-02-07] MEDS: ACETAMINOPHEN 325 MG TABLET PO PRN (08:50)
--- NOTE | 2019-02-07 10:06 | NUR ---
Pt appears irritable however she redirects well. Today the pt was refusing to use her walker stating "I came in with this wc and I can use it if I want." Nurse explained to pt that it is important for her to walk so she doesn't lose her mobility. Pt stated "I've already lost my mobility." Nurse reminded pt she was walking yesterday. Nurse educated pt on coping skills and reminded her that she had 2 good days of behavior and the staff and Dr were very proud of her and would like to see her continue on this path. Pt smiled and stated she will have a good day. She was compliant with her medication and assessment. No hallucinations or delusions noted.
[2019-02-07 16:26] VITALS: BP 113/74
--- NOTE | 2019-02-07 22:12 | NUR ---
Nursing note: Assumed care of pt in the hallway where she was wandering in her wheelchair. She is social, pleasant, and happy, compliant with meds and assessment. Pt has no c/o pain, no agitation. She is A&Ox3
[2019-02-08 05:33] VITALS: BP 136/84
[2019-02-08] MEDS: PANTOPRAZOLE 40 MG TABLET. PO SCH (07:32)
[2019-02-08] MEDS: ASPIRIN 81 MG TAB.CHEW PO SCH (07:32)
[2019-02-08] MEDS: CELECOXIB 100 MG CAPSULE PO SCH (07:33)
[2019-02-08] MEDS: FERROUS SULFATE 325 MG TABLET. PO SCH ×2 (07:34→19:33)
[2019-02-08] MEDS: DIVALPROEX ER 500 MG TAB.ER.24H PO SCH (07:34)
[2019-02-08] MEDS: ISOSORBIDE MONONITRATE ER 30 MG TAB.ER.24H PO SCH (07:36)
[2019-02-08] MEDS: ATORVASTATIN CALCIUM 10 MG TABLET. PO SCH (07:38)
[2019-02-08] MEDS: clonazePAM 1 MG TABLET PO SCH ×3 (07:38→19:35)
[2019-02-08] MEDS: METOPROLOL TART IMMED RELEASE 25 MG TABLET PO SCH ×2 (07:39→19:34)
[2019-02-08] MEDS: PARoxetine 10 MG TABLET PO SCH (07:40)
[2019-02-08] MEDS: LISINOPRIL 10 MG TABLET PO SCH ×2 (07:41→19:33)
[2019-02-08] MEDS: ASCORBIC ACID 500 MG TABLET PO SCH ×2 (07:44→19:34)
[2019-02-08] MEDS: SENNOSIDES 8.6 MG TABLET PO SCH (07:44)
[2019-02-08] MEDS: risperiDONE 2 MG TABLET. PO SCH ×3 (07:44→19:33)
[2019-02-08] MEDS: ACYCLOVIR 200 MG CAPSULE PO SCH ×2 (07:46→19:35)
[2019-02-08] MEDS: NICOTINE 14MG PATCH. TD SCH (07:46)
--- NOTE | 2019-02-08 09:30 | NUR ---
Pt has been calm, compliant, and cooperative today. She is complaint with her medication and assessment. No agitation or aggression noted. No hallucinations noted. 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
--- NOTE | 2019-02-08 12:30 | NUR ---
Pt came to SW office as she wanted to discuss discharge plans. Pt was hopeful to become her own guardian again and to see if she is able to have control of her money. SW and pt attempted to contact pt guardian and ended up leaving a message for her to contact SW when possible.
--- NOTE | 2019-02-08 12:50 | PN ---
DATE: 02/07/2019 SUBJECTIVE: The patient was seen today, met with the staff, chart reviewed. The patient has been manageable on the unit. No major behavioral problems. The patient still has tremors of both hands. The patient has not exhibited any inappropriate behaviors on the unit. OBSERVATION: VITAL SIGNS: Temperature 97.6, blood pressure 102/59, pulse 65, respirations 16, O2 sat 96%. Slept about 7 hours last night. CURRENT MEDICATIONS: The patient's current medications include Paxil 10 mg daily, ferrous sulfate 325 mg b.i.d., Celebrex 200 mg daily, Lipitor 10 mg daily, Risperdal 2 mg t.i.d. p.o., Depakote 1000 mg daily, and Klonopin 1 mg t.i.d. p.o. The patient is not having any side effects, no major medical issues. LABORATORY DATA: The patient's lab reviewed. ASSESSMENT: Schizoaffective disorder, bipolar type, mixed with psychotic features; anxiety disorder, unspecified; and impulse control disorder, unspecified. PLAN: To continue with the treatment. ALEE KNIGHT MD DR: LUBA/nancy JOB#: [id number] / [id number]
[2019-02-08 16:29] VITALS: BP 96/62
--- NOTE | 2019-02-08 20:43 | NUR ---
Nursing note: Assumed care of pt in the day room. She had been outside on the patio and was smiling. I asked her if she was happy and she agreed. She said she was gong to design a new game. Pt was compliant and pleasant, took her meds without problem and wandered back outside.
[2019-02-09 06:17] VITALS: BP 164/95
--- NOTE | 2019-02-09 06:19 | PN ---
DATE: 02/08/2019 SUBJECTIVE: The patient was seen today, met with the staff, chart reviewed. The patient has not exhibited any major behavior problems. The patient continues to have tremors of both hands. The patient was participating in activities and redirectable easily. OBSERVATION: VITAL SIGNS: Temperature 97.8, blood pressure 136/84, pulse 67, respirations 20, O2 sat 94%. Slept about 7 hours last night. MEDICATIONS: The patient's current medications include Paxil 10 mg daily, ferrous sulfate 325 mg b.i.d., Celebrex 200 mg daily, Lipitor 10 mg daily, Risperdal 2 mg t.i.d. p.o., Depakote ____ mg daily, Klonopin 1 mg t.i.d. The patient is not having any side effects or major medical issues. LABORATORY DATA: The patient's lab reviewed. ASSESSMENT: 1. Schizoaffective disorder, bipolar type, mixed with psychotic features. 2. Anxiety disorder, unspecified. 3. Impulse control disorder, unspecified. PLAN: To continue with the treatment. LENGTH OF STAY: 5 days. ALEE KNIGHT MD DR: LUBA/nancy JOB#: [id number] / [id number]
[2019-02-09] MEDS: SENNOSIDES 8.6 MG TABLET PO SCH (07:57)
[2019-02-09] MEDS: ASPIRIN 81 MG TAB.CHEW PO SCH (07:57)
[2019-02-09] MEDS: PANTOPRAZOLE 40 MG TABLET. PO SCH (07:57)
[2019-02-09] MEDS: ISOSORBIDE MONONITRATE ER 30 MG TAB.ER.24H PO SCH (07:57)
[2019-02-09] MEDS: risperiDONE 2 MG TABLET. PO SCH ×3 (07:57→19:14)
[2019-02-09] MEDS: FERROUS SULFATE 325 MG TABLET. PO SCH ×2 (07:58→19:12)
[2019-02-09] MEDS: DIVALPROEX ER 500 MG TAB.ER.24H PO SCH (07:58)
[2019-02-09] MEDS: ASCORBIC ACID 500 MG TABLET PO SCH ×2 (08:00→19:14)
[2019-02-09] MEDS: METOPROLOL TART IMMED RELEASE 25 MG TABLET PO SCH ×2 (08:00→19:13)
[2019-02-09] MEDS: PARoxetine 10 MG TABLET PO SCH (08:00)
[2019-02-09] MEDS: LISINOPRIL 10 MG TABLET PO SCH ×2 (08:00→19:14)
[2019-02-09] MEDS: ATORVASTATIN CALCIUM 10 MG TABLET. PO SCH (08:00)
[2019-02-09] MEDS: CELECOXIB 100 MG CAPSULE PO SCH (08:00)
[2019-02-09] MEDS: NICOTINE 14MG PATCH. TD SCH (08:01)
[2019-02-09] MEDS: clonazePAM 1 MG TABLET PO SCH ×3 (08:04→19:12)
[2019-02-09] MEDS: ACYCLOVIR 200 MG CAPSULE PO SCH ×2 (08:04→19:14)
--- NOTE | 2019-02-09 09:00 | NUR ---
Nursing Note: Assumed care of pt approx 0700. Pt in dining room at time of morning medication pass. Pt compliant w/ meds taken whole, denied pain. Pt requested that this nurse inform the doctor that Risperdal is affecting her memory. Pt was using a wheelchair this morning at breakfast which is a behavior according to cnc machinist 2nd shift nurse and PT.
--- NOTE | 2019-02-09 13:48 | NUR ---
Nursing Note: Pt refused 1400 dose of Risperdal because she is convinced that it is causing her memory loss. Will inform doctor of this fact.
--- NOTE | 2019-02-09 16:14 | NUR ---
Nursing Note: Pt is to be started on Cogentin 1mg BID for three days to see how it helps with pt's shaking per Dr. Karimi.
--- NOTE | 2019-02-09 16:20 | NUR ---
WEEKLY ACTIVITY THERAPY NOTE Date of Admission: 02/02/2019 Date of AT Assessment: 02/06/2019 Goal aimed: to increase relaxation techniques and leisure engagement Initial goal: Pt. will participate in at least one Activity Therapy group per day. Weekly progress towards goal: achieved Group participation level: moderate Weekly highlights: painting tin cans and socializing with peers on Thursday afternoon Behaviors observed: more calm as week progressed Plan: no change to goal Beneficial adaptations: invites, reminders, enjoys art programs
[2019-02-09 16:29] VITALS: BP 101/65
--- NOTE | 2019-02-09 17:36 | NUR ---
Nursing Note: When this nurse informed pt of medication change that Dr. Abraham had put in place, pt became irate and accused this nurse of lying. Pt said, "You haven't been giving me Klonopin! You've been switching it with Zydis instead." Pt also said, "Cogentin ain't gonna do shit; and I ain't taken it." Attempted to explain to pt that Dr. Abraham was hopeful that after trying her on Cogentin for three days
--- NOTE | 2019-02-09 20:31 | NUR ---
Nursing note: Assumed care of pt on the patio where she was sitting in the sun, transferring herself from the wheelchair to the bench. She said she was not taking her meds tonight because they ordered cogentin. I advised her I didn't have cogentin and she wanted proof the clonopin was not zydis. I took an unopened one out and opened it in front of her to prove it. She took her meds then. Pt is still not trusting though. She had no other complaints.
--- NOTE | 2019-02-10 03:53 | PN ---
DATE: 02/09/2019 SUBJECTIVE: The patient was seen today, met with the staff, chart reviewed. The patient's behavior remains the same. The patient is compliant with the treatment. The patient also having involuntary movements of upper extremities. The patient was restless, continues to have cognitive deficits. OBSERVATION: VITAL SIGNS: Temperature 98, blood pressure 164/95, pulse 67, respirations 18, O2 sat 94%. The patient slept about 6-1/2 hours last night. The patient's appetite is fair. MEDICATIONS: The patient's current medications include Paxil 10 mg daily, ferrous sulfate 325 mg b.i.d., Celebrex 200 mg daily, Lipitor 10 mg daily, Risperdal 2 mg t.i.d. p.o., Klonopin 1 mg t.i.d. p.o., and Depakote 1000 mg daily and also clonazepam 1 mg t.i.d. p.o. The patient is not having any side effects. LABORATORY DATA: The patient's lab reviewed. ASSESSMENT: 1. Schizoaffective disorder, bipolar type, mixed with psychotic features. 2. Anxiety disorder, unspecified. 3. Impulse control disorder, unspecified. PLAN: To continue with the treatment. The patient was started on Cogentin 1 mg b.i.d. p.o. for 3 days. ALEE KNIGHT MD DR: Heidi JOB#: [id number] / [id number]
[2019-02-10 06:01] VITALS: BP 122/66
[2019-02-10] MEDS: LISINOPRIL 10 MG TABLET PO SCH (07:59)
[2019-02-10] MEDS: METOPROLOL TART IMMED RELEASE 25 MG TABLET PO SCH ×2 (08:00→20:10)
[2019-02-10] MEDS: risperiDONE 2 MG TABLET. PO SCH ×3 (08:01→20:12)
[2019-02-10] MEDS: CELECOXIB 100 MG CAPSULE PO SCH (08:01)
[2019-02-10] MEDS: BENZTROPINE MESYLATE 1 MG TABLET PO SCH ×2 (08:01→20:12)
[2019-02-10] MEDS: SENNOSIDES 8.6 MG TABLET PO SCH (08:01)
[2019-02-10] MEDS: clonazePAM 1 MG TABLET PO SCH ×3 (08:01→20:12)
[2019-02-10] MEDS: FERROUS SULFATE 325 MG TABLET. PO SCH ×2 (08:02→20:12)
[2019-02-10] MEDS: ATORVASTATIN CALCIUM 10 MG TABLET. PO SCH (08:02)
[2019-02-10] MEDS: PARoxetine 10 MG TABLET PO SCH (08:02)
[2019-02-10] MEDS: ISOSORBIDE MONONITRATE ER 30 MG TAB.ER.24H PO SCH (08:02)
[2019-02-10] MEDS: PANTOPRAZOLE 40 MG TABLET. PO SCH (08:02)
[2019-02-10] MEDS: ASCORBIC ACID 500 MG TABLET PO SCH ×2 (08:02→20:12)
[2019-02-10] MEDS: ASPIRIN 81 MG TAB.CHEW PO SCH (08:02)
[2019-02-10] MEDS: ACYCLOVIR 200 MG CAPSULE PO SCH ×2 (08:02→20:12)
[2019-02-10] MEDS: DIVALPROEX ER 500 MG TAB.ER.24H PO SCH (08:02)
[2019-02-10] MEDS: NICOTINE 14MG PATCH. TD SCH (08:03)
[2019-02-10] MEDS ORDERED: BENZTROPINE MESYLATE 1 MG TABLET PO SCH (09:00)
--- NOTE | 2019-02-10 11:50 | NUR ---
pt was in cafeteria this am upon assessment. pt was compliant with her medications but did question about what each one was. pt states she will go ahead and take to cogentin but it doesnt do anything for her. pt was outside this am before lunch and was socializing with other patients nicely. pt asked for her nails to be painted and also participated in activities this morning. pt has been using a wheelchair to get around but states she can walk. pt encouraged to use a walker so she does not get weak. no complications thus far, will continue to monitor. silva ballesteros.
--- NOTE | 2019-02-10 12:35 | NUR ---
Pt came to SW office while 2 male representatives were trying to leave. Pt was very flirtatious with the reps and even looked one up and down. Pt asked their names and SW interrupted by asking if pt has eaten lunch yet. Pt reports that she just finished eating and wanting to meet the 2 gentlemen. Pt did ask SW if she knew when pt was leaving. SW explained that pt just started Cogentin for her shakes and would need to assess that after a few days. Pt mentioned that she was fully off her Risperdal and felt that she was able to think clearer off of it. SW did notice odd behavior from pt in terms of talking to herself and made a comment of "please Mom, take me to see Jose". SW will make sure to pass this on to nursing staff and the psychiatrist.
--- NOTE | 2019-02-10 15:34 | NUR ---
NURSING NOTE BLOOD PRESSURE PT HIGHEST BLOOD PRESSURE READING OBTAINED THIS AFTERNOON 90/58. RECHECKED IN RIGHT ARM AT 77/46 AND 79/44. PT HAS 3 BLOOD PRESSURE MEDICATIONS ON BOARD. CALLED DR MARTINEZ, 500ML BOLUS ORDER OBTAINED. WILL CONTINUE TO MONITOR. ANDREEA SAMANIEGO.
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
[2019-02-10] MEDS ORDERED: IV NORMAL SALINE 500ML 500 ML IV ONE (15:45)
[2019-02-10 15:57] VITALS: BP 91/60
[2019-02-10 16:05] VITALS: BP 97/66
[2019-02-10 16:49] VITALS: BP 103/66
--- NOTE | 2019-02-10 22:46 | NUR ---
Patient laying down in bed on assessment. Patient compliant with medications whole. Patient refused assessment and to answer assessment question stating that I do not need to know that information. Patient requests that this nurse gets out of her room and let her sleep.
--- NOTE | 2019-02-11 03:38 | PN ---
DATE: 02/10/2019 SUBJECTIVE: The patient was seen today, met with the staff, chart reviewed. Staff reports no major behavior problems. The patient has been compliant with the treatment. The patient apparently had a drop in her blood pressure, but no other major problems. OBSERVATION: VITAL SIGNS: Temperature 97.9, blood pressure 122/66, pulse 62, respirations 18, O2 sat 94%, slept about 7 hours last night. The patient's appetite improved. MEDICATIONS: The patient's current medications include Paxil 10 mg daily, Risperdal 2 mg t.i.d. p.o., Klonopin 1 mg t.i.d. p.o., and Depakote 1000 mg daily and also Klonopin 1 mg t.i.d. p.o. The patient is not having any side effects. The patient's lab reviewed. ASSESSMENT: 1. Schizoaffective disorder, bipolar type, mixed with psychotic features. 2. Anxiety disorder, unspecified. 3. Impulse control disorder, unspecified. PLAN: To continue with the treatment. The patient also on Cogentin 1 mg b.i.d. for 3 days. LENGTH OF STAY: 3-5 days. ALEE KNIGHT MD DR: LUBA/nancy JOB#: [id number] / [id number]
[2019-02-11 06:11] VITALS: BP 134/79
[2019-02-11] MEDS: BENZTROPINE MESYLATE 1 MG TABLET PO SCH ×2 (08:01→20:30)
[2019-02-11] MEDS: ASPIRIN 81 MG TAB.CHEW PO SCH (08:01)
[2019-02-11] MEDS: ATORVASTATIN CALCIUM 10 MG TABLET. PO SCH (08:01)
[2019-02-11] MEDS: PANTOPRAZOLE 40 MG TABLET. PO SCH (08:01)
[2019-02-11] MEDS: PARoxetine 10 MG TABLET PO SCH (08:01)
[2019-02-11] MEDS: SENNOSIDES 8.6 MG TABLET PO SCH (08:01)
[2019-02-11] MEDS: ASCORBIC ACID 500 MG TABLET PO SCH ×2 (08:01→20:30)
[2019-02-11] MEDS: CELECOXIB 100 MG CAPSULE PO SCH (08:01)
[2019-02-11] MEDS: FERROUS SULFATE 325 MG TABLET. PO SCH ×2 (08:02→20:31)
[2019-02-11] MEDS: DIVALPROEX ER 500 MG TAB.ER.24H PO SCH (08:02)
[2019-02-11] MEDS: risperiDONE 2 MG TABLET. PO SCH ×3 (08:02→20:30)
[2019-02-11] MEDS: ACYCLOVIR 200 MG CAPSULE PO SCH ×2 (08:04→20:31)
[2019-02-11] MEDS: METOPROLOL TART IMMED RELEASE 25 MG TABLET PO SCH ×2 (08:06→20:31)
[2019-02-11] MEDS: NICOTINE 14MG PATCH. TD SCH (08:06)
[2019-02-11] MEDS: LISINOPRIL 5 MG TABLET. PO SCH (08:11)
[2019-02-11] MEDS: clonazePAM 1 MG TABLET PO SCH ×3 (08:11→20:30)
--- NOTE | 2019-02-11 08:39 | NUR ---
Nursing Note: Assumed care of pt approx 0700. Pt in dining room at time of morning med pass. Pt compliant w/ meds taken whole, alert x 3, however, she claims. Pt that she is the daughter of Bruno Cochran. Pt seen in hallway after breakfast in wheelchair which is not necessary as pt is ambulatory, laughing and talking to herself.
--- NOTE | 2019-02-11 14:22 | NUR ---
Nursing Note: During group yvonne/ Nilsa, Activity Therapist, pt was telling group that putting saline into someone vein can give them sickle cell disease. When a nurse, Tiffani, overheard make this statement she politely correctly pt and informed her that sickle cell disease is inherited. Pt said in a loud tone, "No, and that's how you gave it to me last night!" Pt then turned back to group and began talking to her peers as if the exchange had not occurred.
[2019-02-11 15:49] VITALS: BP 129/82
--- NOTE | 2019-02-11 22:26 | NUR ---
Patient laying down in bed sleeping on assessment. Patient giggles saying that she has had a good day because she was able to seek back to her room to get some sleep. Patient compliant with medications whole, denies pain at this time. Patient resistive with assessment question asking why do you need to know this information. Patient compliant with assessment with encouragement.
--- NOTE | 2019-02-12 00:11 | PN ---
DATE: 02/11/2019 SUBJECTIVE: The patient was seen today, met with the staff, chart reviewed. The patient continues to be paranoid, suspicious, labile, also accusing staff. The patient has taken her medications today. OBSERVATION: VITAL SIGNS: Temperature 97.9, blood pressure 122/66, pulse 62, respiration 18, O2 sat 94%. Slept about 7 hours last night. The patient's appetite is fair. LABORATORY DATA: The patient's lab reviewed. ASSESSMENT: 1. Schizoaffective disorder, bipolar type, mixed with psychotic features. 2. Anxiety disorder, unspecified. 3. Impulse control disorder, unspecified. PLAN: To continue with the treatment. LENGTH OF STAY: 5 days. ALEE KNIGHT MD DR: LUBA/nancy JOB#: [id number] / [id number]
[2019-02-12 05:48] VITALS: BP 115/71
[2019-02-12] MEDS: NICOTINE 14MG PATCH. TD SCH (07:57)
[2019-02-12] MEDS: ASCORBIC ACID 500 MG TABLET PO SCH ×2 (07:58→19:46)
[2019-02-12] MEDS: ATORVASTATIN CALCIUM 10 MG TABLET. PO SCH (07:58)
[2019-02-12] MEDS: PARoxetine 10 MG TABLET PO SCH (07:58)
[2019-02-12] MEDS: BENZTROPINE MESYLATE 1 MG TABLET PO SCH ×2 (07:58→19:47)
[2019-02-12] MEDS: risperiDONE 2 MG TABLET. PO SCH ×4 (07:59→19:46)
[2019-02-12] MEDS: ASPIRIN 81 MG TAB.CHEW PO SCH (07:59)
[2019-02-12] MEDS: ACYCLOVIR 200 MG CAPSULE PO SCH ×2 (07:59→19:47)
[2019-02-12] MEDS: PANTOPRAZOLE 40 MG TABLET. PO SCH (07:59)
[2019-02-12] MEDS: CELECOXIB 100 MG CAPSULE PO SCH (07:59)
[2019-02-12] MEDS: FERROUS SULFATE 325 MG TABLET. PO SCH ×2 (07:59→19:45)
[2019-02-12] MEDS: DIVALPROEX ER 500 MG TAB.ER.24H PO SCH (08:00)
[2019-02-12] MEDS: SENNOSIDES 8.6 MG TABLET PO SCH (08:00)
[2019-02-12] MEDS: clonazePAM 1 MG TABLET PO SCH ×3 (08:06→19:47)
[2019-02-12 08:14] VITALS: BP 108/74
[2019-02-12] MEDS: METOPROLOL TART IMMED RELEASE 25 MG TABLET PO SCH ×2 (08:16→19:47)
[2019-02-12] MEDS: LISINOPRIL 5 MG TABLET. PO SCH (08:17)
[2019-02-12] MEDS: CHOLECALCIFEROL (VITAMIN D3) 50,000 UNIT CAPSULE PO SCH (08:30)
--- NOTE | 2019-02-12 11:17 | NUR ---
Nursing Note: Assumed care of pt approx 0700. Pt in [address] at time of morning medication pass. Pt compliant w/ meds taken whole; however, pt complained that Risperdal is making her, "lose her mind." Informed pt that the doctor had been made aware that she feels that way. Approx 20 minutes after med pass pt repeated a similar statement that she made yesterday saying, "I know Bruno Cochran very well." She was overheard by this nurse saying, " I don't want to be like the others; witches made them disappear. I'm [employer]. "Look at my legs. I don't think there is a bone in there at all." Pt is using a WC despite the fact that she can walk.
[2019-02-12] MEDS: ACETAMINOPHEN 325 MG TABLET PO PRN (13:59)
--- NOTE | 2019-02-12 14:01 | NUR ---
Nursing Note: Pt put both Klonopin and Risperdal in her mouth but then spat out only the Risperdal pill. Pt refused to take the Risperdal. She then asked for Ibuprofen for leg pain; informed pt she does not have Ibuprofen available but has Tylenol instead. After taken Tylenol, pt argued that Tylenol was only for headache and would not work for leg pain. When a staff member made an innocent, simple comment about taking Ibuprofen, pt said, "Fk You!" Pt is Labile, easily agitated, paranoid and delusional. One minute she is laughing very loudly and making outrageous statements and the next she is swearing at staff accusing them of giving her sickle cell by putting saline in her vein.
[2019-02-12 15:41] VITALS: BP 121/79
--- NOTE | 2019-02-12 18:11 | NUR ---
Nursing Note: Pt C/O burning w/ urination. UA ordered. Will continue to monitor.
[2019-02-12 22:10] LABS: BILIRUBIN,URINE NEG (NEG); CLARITY,URINE CLOUDY; COLOR,URINE YELLOW; GLUCOSE,URINE NEG (NEG)
[2019-02-12 22:11] LABS: BACTERIA,URINE FEW /HPF (0-FEW); NITRITE,URINE POS (NEG); RBC,URINE 0 /HPF (0-2); SQUAMOUS EPITHELIAL CELL,UR OCC /LPF; UROBILINOGEN,URINE 0.2 mg/dL (0.2 mg/dL)
--- NOTE | 2019-02-12 23:53 | NUR ---
Pt located in the dayroom this evening. Pt compliant with HS medications after asking what each pill was. Pt stating many delusions throughout the evening; pt stated that her left leg was broken, pt stated that her medications turn her thoughts inside out, pt stated that she hadn't slept for 19 months and hadn't eaten for 7 months. Pt stated that before she was admitted here, she weighed 63 lbs and had to wear a size 1 skirt over 4 pairs of pants. UA obtained and sent to culture.
[2019-02-13 06:21] VITALS: BP 133/82
[2019-02-13 07:29] LABS: BASO # 0.1 x10^3/uL (0.0-0.2); BASO % 1 % (0-3); EOS # 0.2 x10^3/uL (0.0-0.7); EOS % 3 % (0-3); HEMATOCRIT 33.4 % (36.0-47.0); HEMOGLOBIN 10.8 g/dL (12.0-15.5); LYMPH # 2.3 x10^3/uL (1.0-4.8); LYMPH % 26 % (24-48); MEAN CORPUSCULAR HEMOGLOBIN 27 pg (25-35); MEAN CORPUSCULAR HGB CONC 32 g/dL (31-37); MEAN CORPUSCULAR VOLUME 84 fL (79-100); MONO # 0.9 x10^3/uL (0.0-1.1); MONO % 11 % (0-9); NEUT # 5.2 x10^3uL (1.8-7.7); NEUT % 60 % (31-73); PLATELET COUNT 286 x10^3/uL (140-400); RED BLOOD COUNT 3.96 x10^6/uL (3.50-5.40); WHITE BLOOD COUNT 8.7 x10^3/uL (4.0-11.0)
[2019-02-13 07:59] LABS: ALBUMIN 2.7 g/dL (3.4-5.0); ALBUMIN/GLOBULIN RATIO 0.7 (1.0-1.7); CALCIUM 9.2 mg/dL (8.5-10.1); CREATININE 0.8 mg/dL (0.6-1.0); POTASSIUM 4.7 mmol/L (3.5-5.1); TOTAL BILIRUBIN 0.2 mg/dL (0.2-1.0); TOTAL PROTEIN 6.6 g/dL (6.4-8.2)
[2019-02-13] MEDS: PANTOPRAZOLE 40 MG TABLET. PO SCH (08:12)
[2019-02-13] MEDS: CELECOXIB 100 MG CAPSULE PO SCH (08:12)
[2019-02-13] MEDS: ASPIRIN 81 MG TAB.CHEW PO SCH (08:12)
[2019-02-13] MEDS: ATORVASTATIN CALCIUM 10 MG TABLET. PO SCH (08:13)
[2019-02-13] MEDS: DIVALPROEX ER 500 MG TAB.ER.24H PO SCH (08:13)
[2019-02-13] MEDS: FERROUS SULFATE 325 MG TABLET. PO SCH ×2 (08:13→20:06)
[2019-02-13] MEDS: PARoxetine 10 MG TABLET PO SCH (08:14)
[2019-02-13] MEDS: METOPROLOL TART IMMED RELEASE 25 MG TABLET PO SCH ×2 (08:14→20:07)
[2019-02-13] MEDS: SENNOSIDES 8.6 MG TABLET PO SCH (08:15)
[2019-02-13] MEDS: ASCORBIC ACID 500 MG TABLET PO SCH ×2 (08:15→20:06)
[2019-02-13] MEDS: risperiDONE 2 MG TABLET. PO SCH ×3 (08:15→20:06)
[2019-02-13] MEDS: LISINOPRIL 5 MG TABLET. PO SCH (08:15)
[2019-02-13] MEDS: NICOTINE 14MG PATCH. TD SCH (08:16)
[2019-02-13] MEDS: ACYCLOVIR 200 MG CAPSULE PO SCH ×2 (08:19→20:09)
[2019-02-13] MEDS: clonazePAM 1 MG TABLET PO SCH ×3 (08:19→20:06)
[2019-02-13 08:56] LABS: % ATYL 2 % (0-0); % BANDS 5 % (0-9); % BASOS 1 % (0-3); % EOS 3 % (0-5); % LYMPHS 23 % (24-48); % MONOS 10 % (0-10); % SEGS 56 % (35-66)
[2019-02-13 08:57] LABS: ANISOCYTOSIS SLIGHT; HYPOCHROMIA SLIGHT; PLT ESTIMATE ADEQUATE (ADEQUATE)
--- NOTE | 2019-02-13 10:49 | NUR ---
Patient was in the dining room finishing up breakfast upon morning assessment. She was calm, took medications, allowed for morning assessment. Patient went on to tell nurse about the of her mother and how she was killed. Patient became tearful at this time. The nurse then made patient hot chocolate and she said she felt better. Patient also thinks another patient is her grandpa's brother. No signs of agitation noted, will continue to monitor.
[2019-02-13 16:08] VITALS: BP 136/70
--- NOTE | 2019-02-13 17:14 | NUR ---
Patient was in the day room when she said to another patient that they were a "peter eater." Patient was then redirected to dinner. Once in the dining room she said to another patient who's daughter just left from visiting hours, that "she bet she couldn't wait to get rid of her daughter and that her mother couldn't wait to get rid of her." Once staff tried to redirect patient she became argumentative and was moved to the [place] to continue her dinner. Will continue to monitor.
[2019-02-13 20:04] VITALS: BP 128/51
--- NOTE | 2019-02-13 23:59 | NUR ---
Pt pleasant and interactive this evening. Pt continues to be delusional, making statements that both her arm and leg are broken. Compliant with medications.
[2019-02-14 06:08] VITALS: BP 123/63
[2019-02-14] MEDS: ASPIRIN 81 MG TAB.CHEW PO SCH (07:46)
[2019-02-14] MEDS: PANTOPRAZOLE 40 MG TABLET. PO SCH (07:46)
[2019-02-14] MEDS: CELECOXIB 100 MG CAPSULE PO SCH (07:47)
[2019-02-14] MEDS: ATORVASTATIN CALCIUM 10 MG TABLET. PO SCH (07:48)
[2019-02-14] MEDS: FERROUS SULFATE 325 MG TABLET. PO SCH ×2 (07:48→19:56)
[2019-02-14] MEDS: DIVALPROEX ER 500 MG TAB.ER.24H PO SCH (07:48)
[2019-02-14] MEDS: LISINOPRIL 5 MG TABLET. PO SCH (07:49)
[2019-02-14] MEDS: PARoxetine 10 MG TABLET PO SCH (07:49)
[2019-02-14] MEDS: risperiDONE 2 MG TABLET. PO SCH ×3 (07:49→20:03)
[2019-02-14] MEDS: METOPROLOL TART IMMED RELEASE 25 MG TABLET PO SCH ×2 (07:49→20:05)
[2019-02-14] MEDS: ASCORBIC ACID 500 MG TABLET PO SCH ×2 (07:50→20:04)
[2019-02-14] MEDS: SENNOSIDES 8.6 MG TABLET PO SCH (07:50)
[2019-02-14] MEDS: NICOTINE 14MG PATCH. TD SCH (07:50)
[2019-02-14] MEDS: clonazePAM 1 MG TABLET PO SCH ×3 (07:53→20:07)
[2019-02-14] MEDS: ACYCLOVIR 200 MG CAPSULE PO SCH ×2 (07:53→20:07)
--- NOTE | 2019-02-14 09:36 | NUR ---
Patient has had a good morning. She was in the dining room upon morning assessment. Took medications well, allowed for morning assessment. She was thankful for how great the staff is with her and caring for her. No signs of agitation noted, will continue to monitor.
[2019-02-14 16:40] VITALS: BP 101/58
[2019-02-14 20:04] VITALS: BP 148/82
[2019-02-14] MEDS: BENZTROPINE MESYLATE 0.5 MG TABLET PO SCH (20:07)
--- NOTE | 2019-02-14 23:09 | PDOC ---
Exam Note: Timothy Note: Please also refer to the separate dictated note~for this date of service dictated separately.~Patient seen individually. Discussed the patient with Nursing staff reviewed the chart.~Reviewed interim history and current functioning. Reviewed vital signs,~Labs/ Radiology~and current medications noted below. Continue current treatment with the changes noted in the dictated addendum note Assessment: Vital Signs: Vital Signs Date Time Temp Pulse Resp B/P (MAP) Pulse Ox O2 Delivery O2 Flow Rate FiO2 02/14/19 20:05 60 148/82 02/14/19 16:40 97.1 16 99 02/12/19 15:41 Room Air I&O Intake and Output 02/14/19 06:59 Intake Total 1680 ml Balance 1680 ml Intake Oral 1680 ml Current Medications: Meds: Current Medications Acetaminophen (Tylenol) 650 mg PRN Q6HRS PRN PO PAIN / TEMP; Start 02/02/19 at 20:00; Stop 02/02/19 at 20:19; Status DC Multi-Ingredient Ointment (Analgesic [place]) 1 shwetha PRN QID PRN TP MUSCLE PAIN; Start 02/02/19 at 20:00 Al Hydroxide/Mg Hydroxide (Mylanta Plus Xs) 15 ml PRN AFTMEALHC PRN PO DYSPEPSIA; Start 02/02/19 at 20:00 Magnesium Hydroxide (Milk Of Magnesia) 2,400 mg PRN QHS PRN PO CONSTIPATION; Start 02/02/19 at 20:00 Nicotine (Nicoderm Cq 14mg) 1 patch DAILY TD Last administered on 02/14/19at 07:50; Start 02/03/19 at 09:00 Acetaminophen (Tylenol) 650 mg PRN Q6HRS PRN PO PAIN / TEMP Last administered on 02/12/19at 13:59; Start 02/02/19 at 20:00 Non-Formulary Medication (Nicotine (NICODERM CQ 14mg)) 1 patch DAILY TD ; Start 02/03/19 at 09:00; Stop 02/03/19 at 09:00; Status DC Clonazepam (KlonoPIN) 1 mg TID PO Last administered on 02/14/19at 20:07; Start 02/03/19 at 09:00 Divalproex Sodium (Depakote Er) 1,000 mg DAILY PO Last administered on 5/20/19at 07:48; Start 02/03/19 at 09:00 Risperidone (RisperDAL) 2 mg TID PO Last administered on 02/14/19 20:03; Start 02/03/19 at 09:00 Isosorbide Mononitrate (Imdur) 30 mg DAILY PO Last administered on 02/10/19 08:02; Start 02/03/19 at 09:00; Stop 02/10/19 at 16:31; Status DC Lisinopril (Prinivil) 10 mg BID PO Last administered on 02/10/19 07:59; Start 02/03/19 at 09:00; Stop 02/10/19 at 19:21; Status DC Metoprolol Tartrate (Lopressor) 12.5 mg BID PO Last administered on 02/14/19 20:05; Start 02/03/19 at 09:00 Acyclovir (Zovirax) 200 mg BID PO Last administered on 02/14/19 20:07; Start 02/03/19 at 09:00 Aspirin (Children'S Aspirin) 81 mg DAILYWBKFT PO Last administered on 02/14/19 07:46; Start 02/03/19 at 08:00 Atorvastatin Calcium (Lipitor) 10 mg DAILY PO Last administered on 02/14/19 07:48; Start 02/03/19 at 09:00 Celecoxib (CeleBREX) 200 mg DAILY PO Last administered on 02/14/19 07:47; Start 02/03/19 at 09:00 Pantoprazole Sodium (Protonix) 40 mg DAILYAC PO Last administered on 02/14/19 07:46; Start 02/03/19 at 07:30 Paroxetine HCl (Paxil) 20 mg DAILY PO Last administered on 02/04/19 07:52; Start 02/03/19 at 09:00; Stop 02/04/19 at 18:28; Status DC Sennosides (Senna) 8.6 mg DAILY PO Last administered on 02/14/19 07:50; Start 02/03/19 at 09:00 Vitamin D (Vitamin D3) 50,000 unit WEEKLY PO Last administered on 02/12/19 08:30; Start 02/05/19 at 09:00 Ferrous Sulfate (Feosol) 325 mg BID PO Last administered on 5/20/19at 19:56; Start 02/04/19 at 21:00 Ascorbic Acid (Vitamin C) 500 mg BID PO Last administered on 02/14/19at 20:04; Start 02/04/19 at 21:00 Paroxetine HCl (Paxil) 15 mg DAILY PO Last administered on 02/06/19at 08:15; Start 02/05/19 at 09:00; Stop 02/06/19 at 23:50; Status DC Paroxetine HCl (Paxil) 10 mg DAILY PO Last administered on 02/14/19at 07:49; Start 02/07/19 at 09:00 Benztropine Mesylate (Cogentin) 1 mg DAILY PO ; Start 02/10/19 at 09:00; Stop 02/10/19 at 09:00; Status DC Benztropine Mesylate (Cogentin) 1 mg BID PO Last administered on 02/12/19at 19:47; Start 02/10/19 at 09:00; Stop 02/13/19 at 08:01; Status DC Sodium Chloride 500 ml @ 0 mls/hr 1X ONCE IV Last administered on 02/10/19at 15:38; Start 02/10/19 at 15:45; Stop 02/10/19 at 15:46; Status DC Lisinopril (Prinivil) 5 mg DAILY PO Last administered on 02/14/19at 07:49; Start 02/11/19 at 09:00 Benztropine Mesylate (Cogentin) 0.5 mg BID PO Last administered on 02/14/19at 20:07; Start 02/14/19 at 21:00 Active Scripts Active Reported Acyclovir 200 Mg Capsule 200 Mg PO BID Senna (Sennosides) 8.6 Mg Tablet 8.6 Mg PO DAILY Paxil (Paroxetine Hcl) 20 Mg Tablet 20 Mg PO DAILY Omeprazole 20 Mg Capsule.dr 20 Mg PO DAILY Metoprolol Tartrate 25 Mg Tablet 12.5 Mg PO BID Lisinopril 10 Mg Tablet 10 Mg PO BID Isosorbide Mononitrate Er (Isosorbide Mononitrate) 30 Mg Tab.er.24h 30 Mg PO DAILY Celebrex (Celecoxib) 200 Mg Capsule 200 Mg PO DAILY Atorvastatin Calcium 10 Mg Tablet 10 Mg PO DAILY Aspirin 81 Mg Tab.chew 81 Mg PO DAILY Risperdal (Risperidone) 1 Mg Tablet 2 Mg PO TID NICODERM CQ 14mg (Nicotine) 1 Each Patch.td24 1 Patch TD DAILY Remove patch QHS if pt unable to sleep Depakote Er (Divalproex Sodium) 500 Mg Tab.er.24h 1,000 Mg PO DAILY Clonazepam 1 Mg Tablet 1 Mg PO TID Tylenol (Acetaminophen) 325 Mg Tablet 650 Mg PO PRN Q6HRS PRN Max Acetaminophen dose is 4000mg in 24 hours from all sources for Adults I have reviewed the current psychotropics carefully including drug interactions. Risk benefit ratio favors no change other than as noted in my dictated progress note. Diagnosis: Problems: (1) Schizoaffective disorder (2) Anxiety disorder (3) Impulse control disorder (4) Schizoaffective disorder, chronic condition with acute exacerbation (5) Psychosis, atypical BESSIE SOLORIO MD February 14, 2019 23:09
--- NOTE | 2019-02-15 00:24 | NUR ---
Pt was asleep in her bed at shift change. Pt compliant with waking up and getting a shower. Compliant with HS medications. No delusions noted this evening.
[2019-02-15] MEDS: ACETAMINOPHEN 325 MG TABLET PO PRN (05:19)
[2019-02-15 06:26] VITALS: BP 123/83
[2019-02-15] MEDS: PANTOPRAZOLE 40 MG TABLET. PO SCH (07:55)
[2019-02-15] MEDS: ASPIRIN 81 MG TAB.CHEW PO SCH (07:55)
[2019-02-15] MEDS: BENZTROPINE MESYLATE 0.5 MG TABLET PO SCH ×2 (07:56→19:46)
[2019-02-15] MEDS: CELECOXIB 100 MG CAPSULE PO SCH (07:56)
[2019-02-15] MEDS: DIVALPROEX ER 500 MG TAB.ER.24H PO SCH (07:57)
[2019-02-15] MEDS: FERROUS SULFATE 325 MG TABLET. PO SCH ×2 (07:57→19:46)
[2019-02-15] MEDS: METOPROLOL TART IMMED RELEASE 25 MG TABLET PO SCH ×2 (07:58→19:47)
[2019-02-15] MEDS: ATORVASTATIN CALCIUM 10 MG TABLET. PO SCH (07:58)
[2019-02-15] MEDS: ASCORBIC ACID 500 MG TABLET PO SCH ×2 (07:59→19:48)
[2019-02-15] MEDS: PARoxetine 10 MG TABLET PO SCH (07:59)
[2019-02-15] MEDS: LISINOPRIL 5 MG TABLET. PO SCH (07:59)
[2019-02-15] MEDS: risperiDONE 2 MG TABLET. PO SCH ×3 (07:59→19:48)
[2019-02-15] MEDS: SENNOSIDES 8.6 MG TABLET PO SCH (07:59)
[2019-02-15] MEDS: NICOTINE 14MG PATCH. TD SCH (08:00)
[2019-02-15] MEDS: ACYCLOVIR 200 MG CAPSULE PO SCH ×2 (08:02→19:48)
[2019-02-15] MEDS: clonazePAM 1 MG TABLET PO SCH ×3 (08:02→19:52)
--- NOTE | 2019-02-15 11:36 | NUR ---
Patient slept in this morning a little after shift change, ate breakfast. Took medications, allowed for morning assessment. She has had a good morning, has been participating in group and visiting with staff and other patients. No signs of agitation noted at this time, will continue to monitor.
[2019-02-15 16:08] VITALS: BP 104/58
--- NOTE | 2019-02-15 17:12 | PN ---
DATE: 02/14/2019 PSYCHIATRIC PROGRESS NOTE This is a late entry 02/14/2019, covers elements not covered in my initial note. SUBJECTIVE: I met with the patient the morning of 02/14/2019 in her room. Reviewed information from Dr. Lerma, who covered for me over the past 1 week. Overall, per nursing report the patient has been somewhat tired, withdrawn. She was having tremors started on Cogentin 1 mg b.i.d. She does have some constipation. We will reduce the Cogentin to 0.5 mg b.i.d. REVIEW OF SYSTEMS: No CV, , pulmonary, eye system symptoms on review other than above. MENTAL STATUS EXAM: Reasonably oriented. Speech has some latency, coherent. Abstraction fair, computation impaired, language function intact, attention span short. Mood and affect withdrawn. LABORATORY DATA: Reviewed. IMPRESSION: Schizoaffective disorder, bipolar type, mixed with psychotic features; anxiety disorder, unspecified; impulse control disorder, unspecified. PLAN: Continue Paxil, which was reduced down to 10 mg a day to reduce propensity for deena. Maintain Risperdal 2 mg t.i.d., Depakote 1000 mg daily, level therapeutic 58, Klonopin 1 mg t.i.d. Reduce Cogentin to 0.5 b.i.d. MAN Yaron SOLORIO MD DR: MELODIE/nancy JOB#: [id number] / [id number]
--- NOTE | 2019-02-15 19:56 | PDOC ---
Exam Note: Timothy Note: Admission Date: February 02, 2019 at 16:35 * A recertification for continued Inpatient Psychiatric Admission must be done on Day 12, Day 18 and Day 30. Please also refer to the separate dictated note~for this date of service dictated separately.~Patient seen individually. Discussed the patient with Nursing staff reviewed the chart.~Reviewed interim history and current functioning. Reviewed vital signs,~Labs/ Radiology~and current medications noted below. Continue current treatment with the changes noted in the dictated addendum note Assessment: Vital Signs: Vital Signs Date Time Temp Pulse Resp B/P (MAP) Pulse Ox O2 Delivery O2 Flow Rate FiO2 02/15/19 19:47 61 104/58 02/15/19 16:08 97.8 20 93 02/12/19 15:41 Room Air I&O Intake and Output 02/15/19 07:00 Intake Total 1080 ml Balance 1080 ml Intake Oral 1080 ml Current Medications: Meds: Current Medications Acetaminophen (Tylenol) 650 mg PRN Q6HRS PRN PO PAIN / TEMP; Start 02/02/19 at 20:00; Stop 02/02/19 at 20:19; Status DC Multi-Ingredient Ointment (Analgesic [place]) 1 shwetha PRN QID PRN TP MUSCLE PAIN; Start 02/02/19 at 20:00 Al Hydroxide/Mg Hydroxide (Mylanta Plus Xs) 15 ml PRN AFTMEALHC PRN PO DYSPEPSIA; Start 02/02/19 at 20:00 Magnesium Hydroxide (Milk Of Magnesia) 2,400 mg PRN QHS PRN PO CONSTIPATION; Start 02/02/19 at 20:00 Nicotine (Nicoderm Cq 14mg) 1 patch DAILY TD Last administered on 02/15/19at 08:00; Start 02/03/19 at 09:00 Acetaminophen (Tylenol) 650 mg PRN Q6HRS PRN PO PAIN / TEMP Last administered on 02/15/19at 05:19; Start 02/02/19 at 20:00 Non-Formulary Medication (Nicotine (NICODERM CQ 14mg)) 1 patch DAILY TD ; Start 02/03/19 at 09:00; Stop 02/03/19 at 09:00; Status DC Clonazepam (KlonoPIN) 1 mg TID PO Last administered on 02/15/19at 19:52; Start 02/03/19 at 09:00 Divalproex Sodium (Depakote Er) 1,000 mg DAILY PO Last administered on 02/15/19 07:57; Start 02/03/19 at 09:00 Risperidone (RisperDAL) 2 mg TID PO Last administered on 02/15/19 19:48; Start 02/03/19 at 09:00 Isosorbide Mononitrate (Imdur) 30 mg DAILY PO Last administered on 02/10/19 08:02; Start 02/03/19 at 09:00; Stop 02/10/19 at 16:31; Status DC Lisinopril (Prinivil) 10 mg BID PO Last administered on 02/10/19 07:59; Start 02/03/19 at 09:00; Stop 02/10/19 at 19:21; Status DC Metoprolol Tartrate (Lopressor) 12.5 mg BID PO Last administered on 02/15/19 07:58; Start 02/03/19 at 09:00 Acyclovir (Zovirax) 200 mg BID PO Last administered on 02/15/19 19:48; Start 02/03/19 at 09:00 Aspirin (Children'S Aspirin) 81 mg DAILYWBKFT PO Last administered on 02/15/19 07:55; Start 02/03/19 at 08:00 Atorvastatin Calcium (Lipitor) 10 mg DAILY PO Last administered on 02/15/19 07:58; Start 02/03/19 at 09:00 Celecoxib (CeleBREX) 200 mg DAILY PO Last administered on 02/15/19 07:56; Start 02/03/19 at 09:00 Pantoprazole Sodium (Protonix) 40 mg DAILYAC PO Last administered on 02/15/19 07:55; Start 02/03/19 at 07:30 Paroxetine HCl (Paxil) 20 mg DAILY PO Last administered on 02/04/19 07:52; Start 02/03/19 at 09:00; Stop 02/04/19 at 18:28; Status DC Sennosides (Senna) 8.6 mg DAILY PO Last administered on 02/15/19 07:59; Start 02/03/19 at 09:00 Vitamin D (Vitamin D3) 50,000 unit WEEKLY PO Last administered on 5/18/19at 08:30; Start 02/05/19 at 09:00 Ferrous Sulfate (Feosol) 325 mg BID PO Last administered on 02/15/19at 19:46; Start 02/04/19 at 21:00 Ascorbic Acid (Vitamin C) 500 mg BID PO Last administered on 02/15/19at 19:48; Start 02/04/19 at 21:00 Paroxetine HCl (Paxil) 15 mg DAILY PO Last administered on 02/06/19at 08:15; Start 02/05/19 at 09:00; Stop 02/06/19 at 23:50; Status DC Paroxetine HCl (Paxil) 10 mg DAILY PO Last administered on 02/15/19at 07:59; Start 02/07/19 at 09:00 Benztropine Mesylate (Cogentin) 1 mg DAILY PO ; Start 02/10/19 at 09:00; Stop 02/10/19 at 09:00; Status DC Benztropine Mesylate (Cogentin) 1 mg BID PO Last administered on 02/12/19at 19:47; Start 02/10/19 at 09:00; Stop 02/13/19 at 08:01; Status DC Sodium Chloride 500 ml @ 0 mls/hr 1X ONCE IV Last administered on 02/10/19at 15:38; Start 02/10/19 at 15:45; Stop 02/10/19 at 15:46; Status DC Lisinopril (Prinivil) 5 mg DAILY PO Last administered on 02/15/19at 07:59; Start 02/11/19 at 09:00 Benztropine Mesylate (Cogentin) 0.5 mg BID PO Last administered on 02/15/19at 19:46; Start 02/14/19 at 21:00 Active Scripts Active Reported Acyclovir 200 Mg Capsule 200 Mg PO BID Senna (Sennosides) 8.6 Mg Tablet 8.6 Mg PO DAILY Paxil (Paroxetine Hcl) 20 Mg Tablet 20 Mg PO DAILY Omeprazole 20 Mg Capsule.dr 20 Mg PO DAILY Metoprolol Tartrate 25 Mg Tablet 12.5 Mg PO BID Lisinopril 10 Mg Tablet 10 Mg PO BID Isosorbide Mononitrate Er (Isosorbide Mononitrate) 30 Mg Tab.er.24h 30 Mg PO DAILY Celebrex (Celecoxib) 200 Mg Capsule 200 Mg PO DAILY Atorvastatin Calcium 10 Mg Tablet 10 Mg PO DAILY Aspirin 81 Mg Tab.chew 81 Mg PO DAILY Risperdal (Risperidone) 1 Mg Tablet 2 Mg PO TID NICODERM CQ 14mg (Nicotine) 1 Each Patch.td24 1 Patch TD DAILY Remove patch QHS if pt unable to sleep Depakote Er (Divalproex Sodium) 500 Mg Tab.er.24h 1,000 Mg PO DAILY Clonazepam 1 Mg Tablet 1 Mg PO TID Tylenol (Acetaminophen) 325 Mg Tablet 650 Mg PO PRN Q6HRS PRN Max Acetaminophen dose is 4000mg in 24 hours from all sources for Adults I have reviewed the current psychotropics carefully including drug interactions. Risk benefit ratio favors no change other than as noted in my dictated progress note. Diagnosis: Problems: (1) Schizoaffective disorder (2) Anxiety disorder (3) Impulse control disorder (4) Schizoaffective disorder, chronic condition with acute exacerbation (5) Psychosis, atypical BESSIE SOLORIO MD February 15, 2019 19:56
--- NOTE | 2019-02-15 22:25 | NUR ---
Nursing note: Assumed care of pt in the day room. She was enjoying telling staff and others about her past. She talked about how long it had been since she had drank alcohol or had sex. Pt had to be told her language was inappropriate when she stated, "I like to fk." She was compliant with meds and assessment. No c/o pain.
[2019-02-16 06:19] VITALS: BP 138/74
[2019-02-16] MEDS: PANTOPRAZOLE 40 MG TABLET. PO SCH (07:47)
[2019-02-16] MEDS: SENNOSIDES 8.6 MG TABLET PO SCH (07:48)
[2019-02-16] MEDS: PARoxetine 10 MG TABLET PO SCH (07:48)
[2019-02-16] MEDS: BENZTROPINE MESYLATE 0.5 MG TABLET PO SCH ×2 (07:48→19:23)
[2019-02-16] MEDS: clonazePAM 1 MG TABLET PO SCH ×3 (07:48→19:25)
[2019-02-16] MEDS: DIVALPROEX ER 500 MG TAB.ER.24H PO SCH (07:48)
[2019-02-16] MEDS: ACYCLOVIR 200 MG CAPSULE PO SCH ×2 (07:48→19:25)
[2019-02-16] MEDS: CELECOXIB 100 MG CAPSULE PO SCH (07:49)
[2019-02-16] MEDS: ATORVASTATIN CALCIUM 10 MG TABLET. PO SCH (07:49)
[2019-02-16] MEDS: risperiDONE 2 MG TABLET. PO SCH ×3 (07:49→19:23)
[2019-02-16] MEDS: LISINOPRIL 5 MG TABLET. PO SCH (07:49)
[2019-02-16] MEDS: METOPROLOL TART IMMED RELEASE 25 MG TABLET PO SCH ×2 (07:49→19:24)
[2019-02-16] MEDS: NICOTINE 14MG PATCH. TD SCH (07:50)
[2019-02-16] MEDS: FERROUS SULFATE 325 MG TABLET. PO SCH ×2 (07:50→19:23)
[2019-02-16] MEDS: ASCORBIC ACID 500 MG TABLET PO SCH ×2 (07:50→19:23)
[2019-02-16] MEDS: ASPIRIN 81 MG TAB.CHEW PO SCH (07:50)
--- NOTE | 2019-02-16 13:16 | NUR ---
Nursing Note pt was in dining room during assessment this morning. pt was compliant with her medications as long as she can see the klonopin. pt was inappropriately flirting with male staff this morning. Behavior was ignored and redirected. pt participated in activities this morning before lunch. pt had a shower today and was cooperative with care. No signs of agitation thus far in the shift noted. will continue to monitor.
[2019-02-16 16:04] VITALS: BP 113/73
--- NOTE | 2019-02-16 16:28 | NUR ---
Nursing Note pt was sitting in day room voicing out loud about sex during activities. pt was redirected. pt was sitting in day room this afternoon, again, close to another male patient and started rubbing his neck and back. pt told to keep her hands to herself and leave other patient alone.
--- NOTE | 2019-02-16 16:30 | NUR ---
FATOUMATA has tried multiple times to contact pt court appointed guardian and left message for her to contact FATOUMATA to discuss pt care and discharge needs. FATOUMATA will continue to attempt to reach the guardian and send updates to the [facility] tomorrow after team with a discharge plan.
--- NOTE | 2019-02-16 20:59 | PN ---
DATE: 02/15/2019 PSYCHIATRIC PROGRESS NOTE This late entry 02/15/2019 covers elements not covered in my initial note. SUBJECTIVE: I met with the patient in the evening of 02/15/2019. The patient reportedly had a good day. Per nursing report, she slept 6-1/4 hours previous night. REVIEW OF SYSTEMS: No inappropriate comments sexually noted. Tremors are better and we have reduced the Cogentin to 0.5 mg b.i.d. REVIEW OF SYSTEMS: No CV, , pulmonary, eye, ENT system symptoms on review. MENTAL STATUS EXAM: Oriented to herself and situation. Speech coherent, rapid at times. Abstraction fair, computation impaired, language function intact. Mood and affect somewhat anxious, labile, but improved. IMPRESSION: Unchanged from initial note. PLAN: No change from initial note. If we observe psychotic symptoms, we may add Navane as an antipsychotic to her current dosage of Risperdal. Alternatively, we may consider Clozaril. BESSIE SOLORIO MD DR: MELODIE/nancy JOB#: [id number] / [id number]
--- NOTE | 2019-02-16 22:00 | PDOC ---
Exam Note: Timothy Note: Please also refer to the separate dictated note~for this date of service dictated separately.~Patient seen individually. Discussed the patient with Nursing staff reviewed the chart.~Reviewed interim history and current functioning. Reviewed vital signs,~Labs/ Radiology~and current medications noted below. Continue current treatment with the changes noted in the dictated addendum note Assessment: Vital Signs: Vital Signs Date Time Temp Pulse Resp B/P (MAP) Pulse Ox O2 Delivery O2 Flow Rate FiO2 02/16/19 19:24 59 113/73 02/16/19 16:04 97.9 16 98 02/12/19 15:41 Room Air I&O Intake and Output 02/16/19 07:00 Intake Total 1440 ml Balance 1440 ml Intake Oral 1440 ml Current Medications: Meds: Current Medications Acetaminophen (Tylenol) 650 mg PRN Q6HRS PRN PO PAIN / TEMP; Start 02/02/19 at 20:00; Stop 02/02/19 at 20:19; Status DC Multi-Ingredient Ointment (Analgesic [place]) 1 shwetha PRN QID PRN TP MUSCLE PAIN; Start 02/02/19 at 20:00 Al Hydroxide/Mg Hydroxide (Mylanta Plus Xs) 15 ml PRN AFTMEALHC PRN PO DYSPEPSIA; Start 02/02/19 at 20:00 Magnesium Hydroxide (Milk Of Magnesia) 2,400 mg PRN QHS PRN PO CONSTIPATION; Start 02/02/19 at 20:00 Nicotine (Nicoderm Cq 14mg) 1 patch DAILY TD Last administered on 02/16/19at 07:50; Start 02/03/19 at 09:00 Acetaminophen (Tylenol) 650 mg PRN Q6HRS PRN PO PAIN / TEMP Last administered on 02/15/19at 05:19; Start 02/02/19 at 20:00 Non-Formulary Medication (Nicotine (NICODERM CQ 14mg)) 1 patch DAILY TD ; Start 02/03/19 at 09:00; Stop 02/03/19 at 09:00; Status DC Clonazepam (KlonoPIN) 1 mg TID PO Last administered on 02/16/19at 19:25; Start 02/03/19 at 09:00 Divalproex Sodium (Depakote Er) 1,000 mg DAILY PO Last administered on 5/22/19at 07:48; Start 02/03/19 at 09:00 Risperidone (RisperDAL) 2 mg TID PO Last administered on 02/16/19 19:23; Start 02/03/19 at 09:00 Isosorbide Mononitrate (Imdur) 30 mg DAILY PO Last administered on 02/10/19 08:02; Start 02/03/19 at 09:00; Stop 02/10/19 at 16:31; Status DC Lisinopril (Prinivil) 10 mg BID PO Last administered on 02/10/19 07:59; Start 02/03/19 at 09:00; Stop 02/10/19 at 19:21; Status DC Metoprolol Tartrate (Lopressor) 12.5 mg BID PO Last administered on 02/16/19 19:24; Start 02/03/19 at 09:00 Acyclovir (Zovirax) 200 mg BID PO Last administered on 02/16/19 19:25; Start 02/03/19 at 09:00 Aspirin (Children'S Aspirin) 81 mg DAILYWBKFT PO Last administered on 02/16/19 07:50; Start 02/03/19 at 08:00 Atorvastatin Calcium (Lipitor) 10 mg DAILY PO Last administered on 02/16/19 07:49; Start 02/03/19 at 09:00 Celecoxib (CeleBREX) 200 mg DAILY PO Last administered on 02/16/19 07:49; Start 02/03/19 at 09:00 Pantoprazole Sodium (Protonix) 40 mg DAILYAC PO Last administered on 02/16/19 07:47; Start 02/03/19 at 07:30 Paroxetine HCl (Paxil) 20 mg DAILY PO Last administered on 02/04/19 07:52; Start 02/03/19 at 09:00; Stop 02/04/19 at 18:28; Status DC Sennosides (Senna) 8.6 mg DAILY PO Last administered on 02/16/19 07:48; Start 02/03/19 at 09:00 Vitamin D (Vitamin D3) 50,000 unit WEEKLY PO Last administered on 02/12/19 08:30; Start 02/05/19 at 09:00 Ferrous Sulfate (Feosol) 325 mg BID PO Last administered on 5/22/19at 19:23; Start 02/04/19 at 21:00 Ascorbic Acid (Vitamin C) 500 mg BID PO Last administered on 02/16/19at 19:23; Start 02/04/19 at 21:00 Paroxetine HCl (Paxil) 15 mg DAILY PO Last administered on 02/06/19at 08:15; Start 02/05/19 at 09:00; Stop 02/06/19 at 23:50; Status DC Paroxetine HCl (Paxil) 10 mg DAILY PO Last administered on 02/16/19at 07:48; Start 02/07/19 at 09:00 Benztropine Mesylate (Cogentin) 1 mg DAILY PO ; Start 02/10/19 at 09:00; Stop 02/10/19 at 09:00; Status DC Benztropine Mesylate (Cogentin) 1 mg BID PO Last administered on 02/12/19at 19:47; Start 02/10/19 at 09:00; Stop 02/13/19 at 08:01; Status DC Sodium Chloride 500 ml @ 0 mls/hr 1X ONCE IV Last administered on 02/10/19at 15:38; Start 02/10/19 at 15:45; Stop 02/10/19 at 15:46; Status DC Lisinopril (Prinivil) 5 mg DAILY PO Last administered on 02/16/19at 07:49; Start 02/11/19 at 09:00 Benztropine Mesylate (Cogentin) 0.5 mg BID PO Last administered on 02/16/19at 19:23; Start 02/14/19 at 21:00 Fluphenazine HCl (Prolixin) 1.25 mg BID PO Last administered on 02/16/19at 19:33; Start 02/16/19 at 21:00 Active Scripts Active Reported Acyclovir 200 Mg Capsule 200 Mg PO BID Senna (Sennosides) 8.6 Mg Tablet 8.6 Mg PO DAILY Paxil (Paroxetine Hcl) 20 Mg Tablet 20 Mg PO DAILY Omeprazole 20 Mg Capsule.dr 20 Mg PO DAILY Metoprolol Tartrate 25 Mg Tablet 12.5 Mg PO BID Lisinopril 10 Mg Tablet 10 Mg PO BID Isosorbide Mononitrate Er (Isosorbide Mononitrate) 30 Mg Tab.er.24h 30 Mg PO DAILY Celebrex (Celecoxib) 200 Mg Capsule 200 Mg PO DAILY Atorvastatin Calcium 10 Mg Tablet 10 Mg PO DAILY Aspirin 81 Mg Tab.chew 81 Mg PO DAILY Risperdal (Risperidone) 1 Mg Tablet 2 Mg PO TID NICODERM CQ 14mg (Nicotine) 1 Each Patch.td24 1 Patch TD DAILY Remove patch QHS if pt unable to sleep Depakote Er (Divalproex Sodium) 500 Mg Tab.er.24h 1,000 Mg PO DAILY Clonazepam 1 Mg Tablet 1 Mg PO TID Tylenol (Acetaminophen) 325 Mg Tablet 650 Mg PO PRN Q6HRS PRN Max Acetaminophen dose is 4000mg in 24 hours from all sources for Adults I have reviewed the current psychotropics carefully including drug interactions. Risk benefit ratio favors no change other than as noted in my dictated progress note. Diagnosis: Problems: (1) Schizoaffective disorder (2) Anxiety disorder (3) Impulse control disorder (4) Schizoaffective disorder, chronic condition with acute exacerbation (5) Psychosis, atypical BESSIE SOLORIO MD February 16, 2019 22:00
--- NOTE | 2019-02-16 23:42 | NUR ---
Pt located in dayroom this evening. Pt calm and interactive. No sexually inappropriate behaviors. Compliant with medications.
[2019-02-17 05:47] VITALS: BP 153/88
[2019-02-17] MEDS: risperiDONE 2 MG TABLET. PO SCH ×3 (07:56→20:13)
[2019-02-17] MEDS: CELECOXIB 100 MG CAPSULE PO SCH (07:56)
[2019-02-17] MEDS: FERROUS SULFATE 325 MG TABLET. PO SCH ×2 (07:56→20:05)
[2019-02-17] MEDS: NICOTINE 14MG PATCH. TD SCH (07:56)
[2019-02-17] MEDS: ASPIRIN 81 MG TAB.CHEW PO SCH (07:57)
[2019-02-17] MEDS: ASCORBIC ACID 500 MG TABLET PO SCH ×2 (07:57→20:11)
[2019-02-17] MEDS: SENNOSIDES 8.6 MG TABLET PO SCH (07:58)
[2019-02-17] MEDS: ATORVASTATIN CALCIUM 10 MG TABLET. PO SCH (07:58)
[2019-02-17] MEDS: METOPROLOL TART IMMED RELEASE 25 MG TABLET PO SCH ×2 (07:58→20:13)
[2019-02-17] MEDS: BENZTROPINE MESYLATE 0.5 MG TABLET PO SCH ×2 (07:58→20:12)
[2019-02-17] MEDS: PANTOPRAZOLE 40 MG TABLET. PO SCH (07:58)
[2019-02-17] MEDS: LISINOPRIL 5 MG TABLET. PO SCH (07:59)
[2019-02-17] MEDS: ACYCLOVIR 200 MG CAPSULE PO SCH ×2 (07:59→20:13)
[2019-02-17] MEDS: PARoxetine 10 MG TABLET PO SCH (07:59)
[2019-02-17] MEDS: DIVALPROEX ER 500 MG TAB.ER.24H PO SCH (07:59)
[2019-02-17] MEDS: clonazePAM 1 MG TABLET PO SCH ×3 (08:02→20:16)
[2019-02-17 08:10] LABS: BASO # 0.1 x10^3/uL (0.0-0.2); BASO % 1 % (0-3); EOS # 0.2 x10^3/uL (0.0-0.7); EOS % 2 % (0-3); HEMATOCRIT 34.7 % (36.0-47.0); HEMOGLOBIN 11.3 g/dL (12.0-15.5); LYMPH # 1.9 x10^3/uL (1.0-4.8); LYMPH % 22 % (24-48); MEAN CORPUSCULAR HEMOGLOBIN 28 pg (25-35); MEAN CORPUSCULAR HGB CONC 33 g/dL (31-37); MEAN CORPUSCULAR VOLUME 85 fL (79-100); MONO # 0.9 x10^3/uL (0.0-1.1); MONO % 10 % (0-9); NEUT # 5.6 x10^3uL (1.8-7.7); NEUT % 64 % (31-73); PLATELET COUNT 212 x10^3/uL (140-400); RED BLOOD COUNT 4.09 x10^6/uL (3.50-5.40); WHITE BLOOD COUNT 8.7 x10^3/uL (4.0-11.0)
[2019-02-17 08:12] LABS: ALBUMIN 2.9 g/dL (3.4-5.0); ALBUMIN/GLOBULIN RATIO 0.7 (1.0-1.7); CALCIUM 9.3 mg/dL (8.5-10.1); CREATININE 0.7 mg/dL (0.6-1.0); GFR 87.5; POTASSIUM 4.6 mmol/L (3.5-5.1); TOTAL BILIRUBIN 0.2 mg/dL (0.2-1.0); TOTAL PROTEIN 6.8 g/dL (6.4-8.2)
[2019-02-17 09:10] LABS: % BANDS 2 % (0-9); % EOS 2 % (0-5); % LYMPHS 24 % (24-48); % MONOS 9 % (0-10); % SEGS 63 % (35-66)
[2019-02-17 09:11] LABS: ANISOCYTOSIS SLIGHT; PLT ESTIMATE ADEQUATE (ADEQUATE); POLYCHROMASIA PRESENT
[2019-02-17 09:12] LABS: MICROCYTOSIS SLIGHT; TOXIC GRANULATION PRESENT
--- NOTE | 2019-02-17 10:24 | NUR ---
WEEKLY NOTE: Pt is medication compliant and eating and sleeping fine. Pt is being sexually inappropriate with peers and staff. Pt is making a lot of comments and can be redirected. Pt will discontinue Paxil; otherwise her medications are appropriate at this time. Pt ELOS will be Thursday. Prolixin can be increased in a few days as needed.
--- NOTE | 2019-02-17 10:28 | NUR ---
WEEKLY ACTIVITY THERAPY NOTE Date of Admission: 02/02/2019 Date of AT Assessment: 02/06/2019 Goal aimed: to increase relaxation techniques and leisure engagement Initial goal: Pt. will participate in at least one Activity Therapy group per day. 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
--- NOTE | 2019-02-17 13:19 | NUR ---
SW attempted to contact pt guardian, Lindsay, who was not in the office today and left a message asking for her to contact SW when possible. FATOUMATA contacted Mike at [facility] on to give him an update on pt and her behaviors. Pt does appear less delusional; however, continues to have sexually inappropriate behaviors and conversation. Pt can be redirected easily. FATOUMATA will send over updated notes tomorrow and will figure out transport for discharge on Thursday.
[2019-02-17 15:34] VITALS: BP 138/81
--- NOTE | 2019-02-17 18:00 | NUR ---
Patient has been disorganized and grandiose but cooperative with medications in the morning. She took a nap this afternoon, 14:00 meds were held until she woke up just before dinner. She has not shown signs of delusions or inappropriate behaviors so far today. Will continue to monitor and report to oncoming shift.
--- NOTE | 2019-02-17 22:26 | PDOC ---
Exam Note: Timothy Note: Please also refer to the separate dictated note~for this date of service dictated separately.~Patient seen individually. Discussed the patient with Nursing staff reviewed the chart.~Reviewed interim history and current functioning. Reviewed vital signs,~Labs/ Radiology~and current medications noted below. Continue current treatment with the changes noted in the dictated addendum note Assessment: Vital Signs: Vital Signs Date Time Temp Pulse Resp B/P (MAP) Pulse Ox O2 Delivery O2 Flow Rate FiO2 02/17/19 20:13 53 138/81 02/17/19 15:34 98.8 16 97 02/12/19 15:41 Room Air I&O Intake and Output 02/17/19 06:59 Intake Total 1080 ml Balance 1080 ml Intake Oral 1080 ml # Voids 1 # Bowel Movements 1 Labs: Laboratory Tests Test 02/17/19 07:28 White Blood Count 8.7 x10^3/uL (4.0-11.0) Red Blood Count 4.09 x10^6/uL (3.50-5.40) Hemoglobin 11.3 g/dL (12.0-15.5) L Hematocrit 34.7 % (36.0-47.0) L Mean Corpuscular Volume 85 fL (79-100) Mean Corpuscular Hemoglobin 28 pg (25-35) Mean Corpuscular Hemoglobin Concent 33 g/dL (31-37) Red Cell Distribution Width 19.0 % (11.5-14.5) H Platelet Count 212 x10^3/uL (140-400) Neutrophils (%) (Auto) 64 % (31-73) Lymphocytes (%) (Auto) 22 % (24-48) L Monocytes (%) (Auto) 10 % (0-9) H Eosinophils (%) (Auto) 2 % (0-3) Basophils (%) (Auto) 1 % (0-3) Neutrophils # (Auto) 5.6 x10^3uL (1.8-7.7) Lymphocytes # (Auto) 1.9 x10^3/uL (1.0-4.8) Monocytes # (Auto) 0.9 x10^3/uL (0.0-1.1) Eosinophils # (Auto) 0.2 x10^3/uL (0.0-0.7) Basophils # (Auto) 0.1 x10^3/uL (0.0-0.2) Segmented Neutrophils % 63 % (35-66) Band Neutrophils % 2 % (0-9) Lymphocytes % 24 % (24-48) Monocytes % 9 % (0-10) Eosinophils % 2 % (0-5) Toxic Granulation Present Platelet Estimate Adequate (ADEQUATE) Polychromasia Present Anisocytosis Slight Microcytosis Slight Sodium Level 134 mmol/L (136-145) L Potassium Level 4.6 mmol/L (3.5-5.1) Chloride Level 97 mmol/L (98-107) L Carbon Dioxide Level 33 mmol/L (21-32) H Anion Gap 4 (6-14) L Blood Urea Nitrogen 15 mg/dL (7-20) Creatinine 0.7 mg/dL (0.6-1.0) Estimated GFR (Cockcroft-Gault) 87.5 BUN/Creatinine Ratio 21 (6-20) H Glucose Level 76 mg/dL (70-99) Calcium Level 9.3 mg/dL (8.5-10.1) Total Bilirubin 0.2 mg/dL (0.2-1.0) Aspartate Amino Transferase (AST) 7 U/L (15-37) L Alanine Aminotransferase (ALT) 11 U/L (14-59) L Alkaline Phosphatase 73 U/L (46-116) Total Protein 6.8 g/dL (6.4-8.2) Albumin 2.9 g/dL (3.4-5.0) L Albumin/Globulin Ratio 0.7 (1.0-1.7) L Current Medications: Meds: Current Medications Acetaminophen (Tylenol) 650 mg PRN Q6HRS PRN PO PAIN / TEMP; Start 02/02/19 at 20:00; Stop 02/02/19 at 20:19; Status DC Multi-Ingredient Ointment (Analgesic [place]) 1 shwetha PRN QID PRN TP MUSCLE PAIN Last administered on 02/17/19at 12:15; Start 02/02/19 at 20:00 Al Hydroxide/Mg Hydroxide (Mylanta Plus Xs) 15 ml PRN AFTMEALHC PRN PO DYSPEPSIA; Start 02/02/19 at 20:00 Magnesium Hydroxide (Milk Of Magnesia) 2,400 mg PRN QHS PRN PO CONSTIPATION; Start 02/02/19 at 20:00 Nicotine (Nicoderm Cq 14mg) 1 patch DAILY TD Last administered on 02/17/19 07:56; Start 02/03/19 at 09:00 Acetaminophen (Tylenol) 650 mg PRN Q6HRS PRN PO PAIN / TEMP Last administered on 02/15/19 05:19; Start 02/02/19 at 20:00 Non-Formulary Medication (Nicotine (NICODERM CQ 14mg)) 1 patch DAILY TD ; Start 02/03/19 at 09:00; Stop 02/03/19 at 09:00; Status DC Clonazepam (KlonoPIN) 1 mg TID PO Last administered on 02/17/19 20:16; Start 02/03/19 at 09:00 Divalproex Sodium (Depakote Er) 1,000 mg DAILY PO Last administered on 02/17/19 07:59; Start 02/03/19 at 09:00 Risperidone (RisperDAL) 2 mg TID PO Last administered on 02/17/19 20:13; Start 02/03/19 at 09:00 Isosorbide Mononitrate (Imdur) 30 mg DAILY PO Last administered on 02/10/19 08:02; Start 02/03/19 at 09:00; Stop 02/10/19 at 16:31; Status DC Lisinopril (Prinivil) 10 mg BID PO Last administered on 02/10/19 07:59; Start 02/03/19 at 09:00; Stop 02/10/19 at 19:21; Status DC Metoprolol Tartrate (Lopressor) 12.5 mg BID PO Last administered on 02/17/19 07:58; Start 02/03/19 at 09:00 Acyclovir (Zovirax) 200 mg BID PO Last administered on 02/17/19 20:13; Start 02/03/19 at 09:00 Aspirin (Children'S Aspirin) 81 mg DAILYWBKFT PO Last administered on 02/17/19 07:57; Start 02/03/19 at 08:00 Atorvastatin Calcium (Lipitor) 10 mg DAILY PO Last administered on 02/17/19 07:58; Start 02/03/19 at 09:00 Celecoxib (CeleBREX) 200 mg DAILY PO Last administered on 02/17/19 07:56; Start 02/03/19 at 09:00 Pantoprazole Sodium (Protonix) 40 mg DAILYAC PO Last administered on 02/17/19 07:58; Start 02/03/19 at 07:30 Paroxetine HCl (Paxil) 20 mg DAILY PO Last administered on 02/04/19 07:52; Start 02/03/19 at 09:00; Stop 02/04/19 at 18:28; Status DC Sennosides (Senna) 8.6 mg DAILY PO Last administered on 02/17/19 07:58; Start 02/03/19 at 09:00 Vitamin D (Vitamin D3) 50,000 unit WEEKLY PO Last administered on 02/12/19 08:30; Start 02/05/19 at 09:00 Ferrous Sulfate (Feosol) 325 mg BID PO Last administered on 02/17/19 20:05; Start 02/04/19 at 21:00 Ascorbic Acid (Vitamin C) 500 mg BID PO Last administered on 02/17/19 20:11; Start 02/04/19 at 21:00 Paroxetine HCl (Paxil) 15 mg DAILY PO Last administered on 02/06/19 08:15; Start 02/05/19 at 09:00; Stop 02/06/19 at 23:50; Status DC Paroxetine HCl (Paxil) 10 mg DAILY PO Last administered on 02/17/19 07:59; Start 02/07/19 at 09:00; Stop 02/17/19 at 11:26; Status DC Benztropine Mesylate (Cogentin) 1 mg DAILY PO ; Start 02/10/19 at 09:00; Stop 02/10/19 at 09:00; Status DC Benztropine Mesylate (Cogentin) 1 mg BID PO Last administered on 02/12/19at 19:47; Start 02/10/19 at 09:00; Stop 02/13/19 at 08:01; Status DC Sodium Chloride 500 ml @ 0 mls/hr 1X ONCE IV Last administered on 02/10/19at 15:38; Start 02/10/19 at 15:45; Stop 02/10/19 at 15:46; Status DC Lisinopril (Prinivil) 5 mg DAILY PO Last administered on 5/23/19at 07:59; Start 02/11/19 at 09:00 Benztropine Mesylate (Cogentin) 0.5 mg BID PO Last administered on 02/17/19at 20:12; Start 02/14/19 at 21:00 Fluphenazine HCl (Prolixin) 1.25 mg BID PO Last administered on 02/17/19at 21:27; Start 02/16/19 at 21:00 Active Scripts Active Reported Acyclovir 200 Mg Capsule 200 Mg PO BID Senna (Sennosides) 8.6 Mg Tablet 8.6 Mg PO DAILY Paxil (Paroxetine Hcl) 20 Mg Tablet 20 Mg PO DAILY Omeprazole 20 Mg Capsule.dr 20 Mg PO DAILY Metoprolol Tartrate 25 Mg Tablet 12.5 Mg PO BID Lisinopril 10 Mg Tablet 10 Mg PO BID Isosorbide Mononitrate Er (Isosorbide Mononitrate) 30 Mg Tab.er.24h 30 Mg PO DAILY Celebrex (Celecoxib) 200 Mg Capsule 200 Mg PO DAILY Atorvastatin Calcium 10 Mg Tablet 10 Mg PO DAILY Aspirin 81 Mg Tab.chew 81 Mg PO DAILY Risperdal (Risperidone) 1 Mg Tablet 2 Mg PO TID NICODERM CQ 14mg (Nicotine) 1 Each Patch.td24 1 Patch TD DAILY Remove patch QHS if pt unable to sleep Depakote Er (Divalproex Sodium) 500 Mg Tab.er.24h 1,000 Mg PO DAILY Clonazepam 1 Mg Tablet 1 Mg PO TID Tylenol (Acetaminophen) 325 Mg Tablet 650 Mg PO PRN Q6HRS PRN Max Acetaminophen dose is 4000mg in 24 hours from all sources for Adults I have reviewed the current psychotropics carefully including drug interactions. Risk benefit ratio favors no change other than as noted in my dictated progress note. Diagnosis: Problems: (1) Schizoaffective disorder (2) Anxiety disorder (3) Impulse control disorder (4) Schizoaffective disorder, chronic condition with acute exacerbation (5) Psychosis, atypical BESSIE SOLORIO MD February 17, 2019 22:26
--- NOTE | 2019-02-18 00:07 | NUR ---
Nursing Note Pt cooperative and compliant this pm. Less manic, and has more self control and awareness this week.
[2019-02-18 05:45] VITALS: BP 147/78
[2019-02-18] MEDS: FERROUS SULFATE 325 MG TABLET. PO SCH ×2 (08:28→19:40)
[2019-02-18] MEDS: NICOTINE 14MG PATCH. TD SCH (08:28)
[2019-02-18] MEDS: ASCORBIC ACID 500 MG TABLET PO SCH ×2 (08:28→19:38)
[2019-02-18] MEDS: LISINOPRIL 5 MG TABLET. PO SCH (08:28)
[2019-02-18] MEDS: ATORVASTATIN CALCIUM 10 MG TABLET. PO SCH (08:28)
[2019-02-18] MEDS: BENZTROPINE MESYLATE 0.5 MG TABLET PO SCH ×2 (08:28→19:40)
[2019-02-18] MEDS: DIVALPROEX ER 500 MG TAB.ER.24H PO SCH (08:28)
[2019-02-18] MEDS: clonazePAM 1 MG TABLET PO SCH ×3 (08:28→19:41)
[2019-02-18] MEDS: risperiDONE 2 MG TABLET. PO SCH ×3 (08:28→19:40)
[2019-02-18] MEDS: CELECOXIB 100 MG CAPSULE PO SCH (08:29)
[2019-02-18] MEDS: ASPIRIN 81 MG TAB.CHEW PO SCH (08:29)
[2019-02-18] MEDS: PANTOPRAZOLE 40 MG TABLET. PO SCH (08:29)
[2019-02-18] MEDS: SENNOSIDES 8.6 MG TABLET PO SCH (08:29)
[2019-02-18] MEDS: METOPROLOL TART IMMED RELEASE 25 MG TABLET PO SCH ×2 (08:30→19:39)
[2019-02-18] MEDS: ACYCLOVIR 200 MG CAPSULE PO SCH ×2 (08:31→19:41)
--- NOTE | 2019-02-18 15:33 | NUR ---
[facility] Social Work Discharge Planning Form Patient Name MARIELOS CAO Admit Date: 02/02/19 DISCHARGE PLAN Discharge Destination: Pt to discharge back to [facility] on Care Assessment: N/A Level II Assessment: N/A Transportation: [employer] to chicken picker pt. Will be set up first thing in the AM through [employer]; there is a 3 hour chicken picker window. Special Instructions/Notes: Please fax all discharge orders and the medication list to pt facility list below. DISCHARGE TO FACILITY Facility: [facility] on Address: [address]; [place] [address] Contact Name: FATOUMATA Mckeon: Contact Name: Please ask for the nursing caring for pt upon admission: PCP: Dr. Merida
[2019-02-18 15:54] VITALS: BP 114/75
--- NOTE | 2019-02-18 17:00 | NUR ---
Pt stopped by my office to inform SW that she does not wish to return to [facility]. SW informed pt that she does not have that option and will discharge back there once she is stable to leave. Pt reports that she does no like the facility and wants to be out on her own. SW explained that she has a guardian and in order to undo that, pt would have to show the courts that she is capable of caring for herself, which at the moment, she cannot. At that time, a facility metals sales representative appeared in the office doorway and pt gave her a dirty look. SW found that the metals sales representative used to work with pt when she was in a level II; which at that time, pt continuously refused to take her medications and had a ton of bx.
--- NOTE | 2019-02-18 17:15 | NUR ---
pt compliant with meds and cares. has been grandiose at time, untruthful and accusatory. thinks other peers or staff are taking her personal things when in fact the pt has been taking items from staff and other peers. has so far been compliant with meds and cares.
--- NOTE | 2019-02-18 18:51 | PN ---
DATE: 02/16/2019 PSYCHIATRIC PROGRESS NOTE This is a late entry 02/16/2019, covers elements not covered in my initial note. SUBJECTIVE: I met with the patient in her room at length the evening of 02/16/2019. She slept 7-3/4 hours previous night, has been sexually inappropriate in her comments to other patients. She was rubbing the neck of a male patient, who was redirected. She remains psychotic. When I questioned her on this, she minimized all of this and stated she was switching less into other personalities as part of what she believes she has multiple personality disorder. We discussed inappropriate behaviors. She remains somewhat grandiose and hypomanic despite therapeutic levels of Depakote and fairly significant amount of Risperdal 6 mg a day, Klonopin 1 mg t.i.d. Paxil 10 mg a day may be exacerbating her manic symptoms. REVIEW OF SYSTEMS: No CV, , pulmonary, eye, ENT system symptoms on review. MENTAL STATUS EXAM: Oriented reasonably. Speech coherent, somewhat pressured at times. Abstraction fair, computation impaired, language function intact, attention span short. Mood and affect remains labile and grandiose. LABORATORY DATA: Reviewed. IMPRESSION: Bipolar 1 disorder, mixed with psychotic features. PLAN: Continue current psychotropics. I had considered adding Navane 2 mg twice a day, but pharmacy just has a 3-day supply and no ability to get more of it. We will start Prolixin 1.25 mg twice a day in place of this. Continue rest of the psychotropics and Cogentin was reduced to 0.5 mg b.i.d. MAN Yaron SOLORIO MD DR: MELODIE/nancy JOB#: [id number] / [id number]
--- NOTE | 2019-02-18 20:19 | PN ---
DATE: 02/17/2019 PSYCHIATRIC PROGRESS NOTE This late entry 02/17/2019 covers elements not covered in my initial note. SUBJECTIVE: I met with the patient in the evening of 02/17/2019 staffed at a treatment team meeting with the entire team in the morning. The patient slept 7 hours. Appetite 100%. She has been somewhat sexually inappropriate, was rubbing the shoulder of another male patient, difficult to redirect, somewhat grandiose. We have started her on Prolixin 1.25 b.i.d. in addition to stopping her Paxil, which could be worsening her deena and she remains on a therapeutic dosage of Depakote and Risperdal at 6 mg a day, Klonopin 1 mg t.i.d., Cogentin 0.5 b.i.d. and tremors are better on this. No CV, , pulmonary, eye system symptoms on review. MENTAL STATUS EXAM: Oriented reasonably. Speech coherent, slightly pressured. Abstraction fair, computation impaired, language function intact, attention span short. Mood and affect are still somewhat grandiose, but improved. LABORATORY DATA: Reviewed. IMPRESSION: Unchanged from initial note. PLAN: As noted above and we stopped the Paxil, added Prolixin, and adjust further as clinically indicated. BESSIE SOLORIO MD DR: MELODIE/nancy JOB#: [id number] / [id number]
--- NOTE | 2019-02-18 22:36 | PDOC ---
Exam Note: Timothy Note: Please also refer to the separate dictated note~for this date of service dictated separately.~Patient seen individually. Discussed the patient with Nursing staff reviewed the chart.~Reviewed interim history and current functioning. Reviewed vital signs,~Labs/ Radiology~and current medications noted below. Continue current treatment with the changes noted in the dictated addendum note Assessment: Vital Signs: Vital Signs Date Time Temp Pulse Resp B/P (MAP) Pulse Ox O2 Delivery O2 Flow Rate FiO2 02/18/19 19:39 66 114/75 02/18/19 15:54 97.1 18 99 02/12/19 15:41 Room Air I&O Intake and Output 02/18/19 06:59 Intake Total 1320 ml Balance 1320 ml Intake Oral 1320 ml # Voids 1 Current Medications: Meds: Current Medications Acetaminophen (Tylenol) 650 mg PRN Q6HRS PRN PO PAIN / TEMP; Start 02/02/19 at 20:00; Stop 02/02/19 at 20:19; Status DC Multi-Ingredient Ointment (Analgesic [place]) 1 shwetha PRN QID PRN TP MUSCLE PAIN Last administered on 02/17/19at 12:15; Start 02/02/19 at 20:00 Al Hydroxide/Mg Hydroxide (Mylanta Plus Xs) 15 ml PRN AFTMEALHC PRN PO DYSPEPSIA; Start 02/02/19 at 20:00 Magnesium Hydroxide (Milk Of Magnesia) 2,400 mg PRN QHS PRN PO CONSTIPATION; Start 02/02/19 at 20:00 Nicotine (Nicoderm Cq 14mg) 1 patch DAILY TD Last administered on 02/18/19at 08:28; Start 02/03/19 at 09:00 Acetaminophen (Tylenol) 650 mg PRN Q6HRS PRN PO PAIN / TEMP Last administered on 02/15/19at 05:19; Start 02/02/19 at 20:00 Non-Formulary Medication (Nicotine (NICODERM CQ 14mg)) 1 patch DAILY TD ; Start 02/03/19 at 09:00; Stop 02/03/19 at 09:00; Status DC Clonazepam (KlonoPIN) 1 mg TID PO Last administered on 02/18/19at 19:41; Start 02/03/19 at 09:00 Divalproex Sodium (Depakote Er) 1,000 mg DAILY PO Last administered on 02/18/19 08:28; Start 02/03/19 at 09:00 Risperidone (RisperDAL) 2 mg TID PO Last administered on 02/18/19 19:40; Start 02/03/19 at 09:00 Isosorbide Mononitrate (Imdur) 30 mg DAILY PO Last administered on 02/10/19 08:02; Start 02/03/19 at 09:00; Stop 02/10/19 at 16:31; Status DC Lisinopril (Prinivil) 10 mg BID PO Last administered on 02/10/19 07:59; Start 02/03/19 at 09:00; Stop 02/10/19 at 19:21; Status DC Metoprolol Tartrate (Lopressor) 12.5 mg BID PO Last administered on 02/18/19 19:39; Start 02/03/19 at 09:00 Acyclovir (Zovirax) 200 mg BID PO Last administered on 02/18/19 19:41; Start 02/03/19 at 09:00 Aspirin (Children'S Aspirin) 81 mg DAILYWBKFT PO Last administered on 02/18/19 08:29; Start 02/03/19 at 08:00 Atorvastatin Calcium (Lipitor) 10 mg DAILY PO Last administered on 02/18/19 08:28; Start 02/03/19 at 09:00 Celecoxib (CeleBREX) 200 mg DAILY PO Last administered on 02/18/19 08:29; Start 02/03/19 at 09:00 Pantoprazole Sodium (Protonix) 40 mg DAILYAC PO Last administered on 02/18/19 08:29; Start 02/03/19 at 07:30 Paroxetine HCl (Paxil) 20 mg DAILY PO Last administered on 02/04/19 07:52; Start 02/03/19 at 09:00; Stop 02/04/19 at 18:28; Status DC Sennosides (Senna) 8.6 mg DAILY PO Last administered on 02/18/19 08:29; Start 02/03/19 at 09:00 Vitamin D (Vitamin D3) 50,000 unit WEEKLY PO Last administered on 02/12/19 08:30; Start 02/05/19 at 09:00 Ferrous Sulfate (Feosol) 325 mg BID PO Last administered on 02/18/19 19:40; Start 02/04/19 at 21:00 Ascorbic Acid (Vitamin C) 500 mg BID PO Last administered on 02/18/19at 19:38; Start 02/04/19 at 21:00 Paroxetine HCl (Paxil) 15 mg DAILY PO Last administered on 02/06/19at 08:15; Start 02/05/19 at 09:00; Stop 02/06/19 at 23:50; Status DC Paroxetine HCl (Paxil) 10 mg DAILY PO Last administered on 02/17/19at 07:59; Start 02/07/19 at 09:00; Stop 02/17/19 at 11:26; Status DC Benztropine Mesylate (Cogentin) 1 mg DAILY PO ; Start 02/10/19 at 09:00; Stop 02/10/19 at 09:00; Status DC Benztropine Mesylate (Cogentin) 1 mg BID PO Last administered on 02/12/19at 19:47; Start 02/10/19 at 09:00; Stop 02/13/19 at 08:01; Status DC Sodium Chloride 500 ml @ 0 mls/hr 1X ONCE IV Last administered on 02/10/19at 15:38; Start 02/10/19 at 15:45; Stop 02/10/19 at 15:46; Status DC Lisinopril (Prinivil) 5 mg DAILY PO Last administered on 02/18/19at 08:28; Start 02/11/19 at 09:00 Benztropine Mesylate (Cogentin) 0.5 mg BID PO Last administered on 02/18/19 19:40; Start 02/14/19 at 21:00 Fluphenazine HCl (Prolixin) 1.25 mg BID PO Last administered on 02/18/19 19:39; Start 02/16/19 at 21:00 Active Scripts Active Reported Acyclovir 200 Mg Capsule 200 Mg PO BID Senna (Sennosides) 8.6 Mg Tablet 8.6 Mg PO DAILY Paxil (Paroxetine Hcl) 20 Mg Tablet 20 Mg PO DAILY Omeprazole 20 Mg Capsule.dr 20 Mg PO DAILY Metoprolol Tartrate 25 Mg Tablet 12.5 Mg PO BID Lisinopril 10 Mg Tablet 10 Mg PO BID Isosorbide Mononitrate Er (Isosorbide Mononitrate) 30 Mg Tab.er.24h 30 Mg PO DAILY Celebrex (Celecoxib) 200 Mg Capsule 200 Mg PO DAILY Atorvastatin Calcium 10 Mg Tablet 10 Mg PO DAILY Aspirin 81 Mg Tab.chew 81 Mg PO DAILY Risperdal (Risperidone) 1 Mg Tablet 2 Mg PO TID NICODERM CQ 14mg (Nicotine) 1 Each Patch.td24 1 Patch TD DAILY Remove patch QHS if pt unable to sleep Depakote Er (Divalproex Sodium) 500 Mg Tab.er.24h 1,000 Mg PO DAILY Clonazepam 1 Mg Tablet 1 Mg PO TID Tylenol (Acetaminophen) 325 Mg Tablet 650 Mg PO PRN Q6HRS PRN Max Acetaminophen dose is 4000mg in 24 hours from all sources for Adults I have reviewed the current psychotropics carefully including drug interactions. Risk benefit ratio favors no change other than as noted in my dictated progress note. Diagnosis: Problems: (1) Schizoaffective disorder (2) Anxiety disorder (3) Impulse control disorder (4) Schizoaffective disorder, chronic condition with acute exacerbation (5) Psychosis, atypical BESSIE SOLORIO MD February 18, 2019 22:36
--- NOTE | 2019-02-18 22:37 | NUR ---
Nursing Note Pt compliant but has odd behavior this pm. Takes meds and then starts to laugh uncontrollably in the day room with no real provocation. Cooperative and pleasant wanders the unit at times.
[2019-02-19 05:37] VITALS: BP 132/64
[2019-02-19 06:20] LABS: BILIRUBIN,URINE NEG (NEG); CLARITY,URINE CLOUDY; COLOR,URINE STRAW; GLUCOSE,URINE NEG (NEG); NITRITE,URINE NEG (NEG); UROBILINOGEN,URINE 0.2 mg/dL (0.2 mg/dL)
[2019-02-19 06:21] LABS: BACTERIA,URINE MANY /HPF (0-FEW); RBC,URINE 0 /HPF (0-2); SQUAMOUS EPITHELIAL CELL,UR OCC /LPF; WBC,URINE >40 /HPF (0-4)
[2019-02-19] MEDS: NICOTINE 14MG PATCH. TD SCH (08:24)
[2019-02-19] MEDS: LISINOPRIL 5 MG TABLET. PO SCH (08:24)
[2019-02-19] MEDS: FERROUS SULFATE 325 MG TABLET. PO SCH ×2 (08:24→19:38)
[2019-02-19] MEDS: METOPROLOL TART IMMED RELEASE 25 MG TABLET PO SCH ×2 (08:24→19:38)
[2019-02-19] MEDS: ATORVASTATIN CALCIUM 10 MG TABLET. PO SCH (08:24)
[2019-02-19] MEDS: risperiDONE 2 MG TABLET. PO SCH ×3 (08:25→19:38)
[2019-02-19] MEDS: clonazePAM 1 MG TABLET PO SCH ×3 (08:25→19:38)
[2019-02-19] MEDS: SENNOSIDES 8.6 MG TABLET PO SCH (08:25)
[2019-02-19] MEDS: CELECOXIB 100 MG CAPSULE PO SCH (08:26)
[2019-02-19] MEDS: PANTOPRAZOLE 40 MG TABLET. PO SCH (08:26)
[2019-02-19] MEDS: DIVALPROEX ER 500 MG TAB.ER.24H PO SCH (08:26)
[2019-02-19] MEDS: ASCORBIC ACID 500 MG TABLET PO SCH ×2 (08:26→19:36)
[2019-02-19] MEDS: BENZTROPINE MESYLATE 0.5 MG TABLET PO SCH ×2 (08:26→19:38)
[2019-02-19] MEDS: ASPIRIN 81 MG TAB.CHEW PO SCH (08:26)
[2019-02-19] MEDS: ACYCLOVIR 200 MG CAPSULE PO SCH ×2 (08:28→19:36)
[2019-02-19] MEDS: CHOLECALCIFEROL (VITAMIN D3) 50,000 UNIT CAPSULE PO SCH (08:28)
[2019-02-19 15:34] VITALS: BP 131/88
--- NOTE | 2019-02-19 19:11 | NUR ---
pt up for meals and groups. compliant with meds. has been less intrusive today.
--- NOTE | 2019-02-19 22:31 | PDOC ---
Exam Note: Timothy Note: Please also refer to the separate dictated note~for this date of service dictated separately.~Patient seen individually. Discussed the patient with Nursing staff reviewed the chart.~Reviewed interim history and current functioning. Reviewed vital signs,~Labs/ Radiology~and current medications noted below. Continue current treatment with the changes noted in the dictated addendum note Assessment: Vital Signs: Vital Signs Date Time Temp Pulse Resp B/P (MAP) Pulse Ox O2 Delivery O2 Flow Rate FiO2 02/19/19 19:38 58 131/88 02/19/19 15:34 97.6 18 97 I&O Intake and Output 02/19/19 06:59 Intake Total 1080 ml Balance 1080 ml Intake Oral 1080 ml Labs: Laboratory Tests Test 02/19/19 05:50 Urine Collection Type Unknown Urine Color Straw Urine Clarity Cloudy Urine pH 7.0 Urine Specific [place] 1.015 Urine Protein Neg (NEG-TRACE) Urine Glucose (UA) Neg mg/dL (NEG) Urine Ketones (Stick) Neg mg/dL (NEG) Urine Blood Small (NEG) Urine Nitrite Neg (NEG) Urine Bilirubin Neg (NEG) Urine Urobilinogen Dipstick 0.2 mg/dL (0.2 mg/dL) Urine Leukocyte Esterase Large (NEG) Urine RBC 0 /HPF (0-2) Urine WBC >40 /HPF (0-4) Urine Squamous Epithelial Cells Occ /LPF Urine Bacteria Many /HPF (0-FEW) Current Medications: Meds: Current Medications Acetaminophen (Tylenol) 650 mg PRN Q6HRS PRN PO PAIN / TEMP; Start 02/02/19 at 20:00; Stop 02/02/19 at 20:19; Status DC Multi-Ingredient Ointment (Analgesic [place]) 1 shwetha PRN QID PRN TP MUSCLE PAIN Last administered on 02/17/19at 12:15; Start 02/02/19 at 20:00 Al Hydroxide/Mg Hydroxide (Mylanta Plus Xs) 15 ml PRN AFTMEALHC PRN PO DYSPEPSIA; Start 02/02/19 at 20:00 Magnesium Hydroxide (Milk Of Magnesia) 2,400 mg PRN QHS PRN PO CONSTIPATION; Start 02/02/19 at 20:00 Nicotine (Nicoderm Cq 14mg) 1 patch DAILY TD Last administered on 02/19/19at 08:24; Start 02/03/19 at 09:00 Acetaminophen (Tylenol) 650 mg PRN Q6HRS PRN PO PAIN / TEMP Last administered on 02/15/19 05:19; Start 02/02/19 at 20:00 Non-Formulary Medication (Nicotine (NICODERM CQ 14mg)) 1 patch DAILY TD ; Start 02/03/19 at 09:00; Stop 02/03/19 at 09:00; Status DC Clonazepam (KlonoPIN) 1 mg TID PO Last administered on 02/19/19 19:38; Start 02/03/19 at 09:00 Divalproex Sodium (Depakote Er) 1,000 mg DAILY PO Last administered on 02/19/19 08:26; Start 02/03/19 at 09:00 Risperidone (RisperDAL) 2 mg TID PO Last administered on 02/19/19 19:38; Start 02/03/19 at 09:00 Isosorbide Mononitrate (Imdur) 30 mg DAILY PO Last administered on 02/10/19 08:02; Start 02/03/19 at 09:00; Stop 02/10/19 at 16:31; Status DC Lisinopril (Prinivil) 10 mg BID PO Last administered on 02/10/19 07:59; Start 02/03/19 at 09:00; Stop 02/10/19 at 19:21; Status DC Metoprolol Tartrate (Lopressor) 12.5 mg BID PO Last administered on 02/19/19 19:38; Start 02/03/19 at 09:00 Acyclovir (Zovirax) 200 mg BID PO Last administered on 02/19/19 19:36; Start 02/03/19 at 09:00 Aspirin (Children'S Aspirin) 81 mg DAILYWBKFT PO Last administered on 02/19/19 08:26; Start 02/03/19 at 08:00 Atorvastatin Calcium (Lipitor) 10 mg DAILY PO Last administered on 02/19/19 08:24; Start 02/03/19 at 09:00 Celecoxib (CeleBREX) 200 mg DAILY PO Last administered on 02/19/19 08:26; Start 02/03/19 at 09:00 Pantoprazole Sodium (Protonix) 40 mg DAILYAC PO Last administered on 02/19/19 08:26; Start 02/03/19 at 07:30 Paroxetine HCl (Paxil) 20 mg DAILY PO Last administered on 02/04/19 07:52; Start 02/03/19 at 09:00; Stop 02/04/19 at 18:28; Status DC Sennosides (Senna) 8.6 mg DAILY PO Last administered on 02/19/19 08:25; Start 02/03/19 at 09:00 Vitamin D (Vitamin D3) 50,000 unit WEEKLY PO Last administered on 02/19/19 08:28; Start 02/05/19 at 09:00 Ferrous Sulfate (Feosol) 325 mg BID PO Last administered on 02/19/19 19:38; Start 02/04/19 at 21:00 Ascorbic Acid (Vitamin C) 500 mg BID PO Last administered on 02/19/19 19:36; Start 02/04/19 at 21:00 Paroxetine HCl (Paxil) 15 mg DAILY PO Last administered on 02/06/19 08:15; Start 02/05/19 at 09:00; Stop 02/06/19 at 23:50; Status DC Paroxetine HCl (Paxil) 10 mg DAILY PO Last administered on 02/17/19at 07:59; Start 02/07/19 at 09:00; Stop 02/17/19 at 11:26; Status DC Benztropine Mesylate (Cogentin) 1 mg DAILY PO ; Start 02/10/19 at 09:00; Stop 02/10/19 at 09:00; Status DC Benztropine Mesylate (Cogentin) 1 mg BID PO Last administered on 02/12/19 19:47; Start 02/10/19 at 09:00; Stop 02/13/19 at 08:01; Status DC Sodium Chloride 500 ml @ 0 mls/hr 1X ONCE IV Last administered on 02/10/19 15:38; Start 02/10/19 at 15:45; Stop 02/10/19 at 15:46; Status DC Lisinopril (Prinivil) 5 mg DAILY PO Last administered on 02/19/19 08:24; Start 02/11/19 at 09:00 Benztropine Mesylate (Cogentin) 0.5 mg BID PO Last administered on 5/25/19at 19:38; Start 02/14/19 at 21:00 Fluphenazine HCl (Prolixin) 1.25 mg BID PO Last administered on 02/19/19at 19:38; Start 02/16/19 at 21:00 Active Scripts Active Reported Acyclovir 200 Mg Capsule 200 Mg PO BID Senna (Sennosides) 8.6 Mg Tablet 8.6 Mg PO DAILY Paxil (Paroxetine Hcl) 20 Mg Tablet 20 Mg PO DAILY Omeprazole 20 Mg Capsule.dr 20 Mg PO DAILY Metoprolol Tartrate 25 Mg Tablet 12.5 Mg PO BID Lisinopril 10 Mg Tablet 10 Mg PO BID Isosorbide Mononitrate Er (Isosorbide Mononitrate) 30 Mg Tab.er.24h 30 Mg PO DAILY Celebrex (Celecoxib) 200 Mg Capsule 200 Mg PO DAILY Atorvastatin Calcium 10 Mg Tablet 10 Mg PO DAILY Aspirin 81 Mg Tab.chew 81 Mg PO DAILY Risperdal (Risperidone) 1 Mg Tablet 2 Mg PO TID NICODERM CQ 14mg (Nicotine) 1 Each Patch.td24 1 Patch TD DAILY Remove patch QHS if pt unable to sleep Depakote Er (Divalproex Sodium) 500 Mg Tab.er.24h 1,000 Mg PO DAILY Clonazepam 1 Mg Tablet 1 Mg PO TID Tylenol (Acetaminophen) 325 Mg Tablet 650 Mg PO PRN Q6HRS PRN Max Acetaminophen dose is 4000mg in 24 hours from all sources for Adults I have reviewed the current psychotropics carefully including drug interactions. Risk benefit ratio favors no change other than as noted in my dictated progress note. Diagnosis: Problems: (1) Schizoaffective disorder (2) Anxiety disorder (3) Impulse control disorder (4) Schizoaffective disorder, chronic condition with acute exacerbation (5) Psychosis, atypical BESSIE SOLORIO MD February 19, 2019 22:31
--- NOTE | 2019-02-20 00:29 | NUR ---
Pt located in the dayroom this evening. Compliant with HS medications. Pt stated that she had a good day and feels like she is "reaching her goals." No delusions noted.
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
[2019-02-20 06:53] VITALS: BP 129/85
[2019-02-20] MEDS: clonazePAM 1 MG TABLET PO SCH ×3 (08:07→19:49)
[2019-02-20] MEDS: NICOTINE 14MG PATCH. TD SCH (08:07)
[2019-02-20] MEDS: ATORVASTATIN CALCIUM 10 MG TABLET. PO SCH (08:07)
[2019-02-20] MEDS: SENNOSIDES 8.6 MG TABLET PO SCH (08:07)
[2019-02-20] MEDS: ASPIRIN 81 MG TAB.CHEW PO SCH (08:07)
[2019-02-20] MEDS: LISINOPRIL 5 MG TABLET. PO SCH (08:08)
[2019-02-20] MEDS: DIVALPROEX ER 500 MG TAB.ER.24H PO SCH (08:08)
[2019-02-20] MEDS: BENZTROPINE MESYLATE 0.5 MG TABLET PO SCH ×2 (08:08→19:49)
[2019-02-20] MEDS: FERROUS SULFATE 325 MG TABLET. PO SCH ×2 (08:08→19:51)
[2019-02-20] MEDS: risperiDONE 2 MG TABLET. PO SCH ×3 (08:08→19:49)
[2019-02-20] MEDS: ASCORBIC ACID 500 MG TABLET PO SCH ×2 (08:08→19:49)
[2019-02-20] MEDS: METOPROLOL TART IMMED RELEASE 25 MG TABLET PO SCH ×2 (08:09→19:51)
[2019-02-20] MEDS: PANTOPRAZOLE 40 MG TABLET. PO SCH (08:09)
[2019-02-20] MEDS: CELECOXIB 100 MG CAPSULE PO SCH (08:09)
[2019-02-20] MEDS: ACYCLOVIR 200 MG CAPSULE PO SCH ×2 (08:10→19:51)
[2019-02-20 15:56] VITALS: BP 115/81
--- NOTE | 2019-02-20 18:49 | NUR ---
pt up adl. has been compliant with meds. grandiose at times.
--- NOTE | 2019-02-20 19:41 | PN ---
DATE: 02/18/2019 PSYCHIATRIC PROGRESS NOTE This late entry 02/18/2019 covers elements not covered in my initial note. SUBJECTIVE: I met with the patient in the evening. The patient slept 5 hours previous night. The patient has not been sexually inappropriate, grandiose, and less pressured speech is evident. REVIEW OF SYSTEMS: No CV, , pulmonary, eye system symptoms on review. MENTAL STATUS EXAM: Oriented reasonably. Speech is coherent, less pressured. Abstraction fair, computation impaired, language function intact, attention span short. Mood and affect generally is less grandiose. LABORATORY DATA: Reviewed. IMPRESSION: Unchanged from initial note. PLAN: No change from initial note. Continue Prolixin 1.25 b.i.d. together with the Risperdal 2 mg t.i.d., Depakote therapeutic level, Klonopin 1 mg t.i.d., Cogentin for her tremors 0.5 b.i.d. MAN ShaeMi SOLORIO MD DR: MELODIE/nancy JOB#: [id number] / [id number]
--- NOTE | 2019-02-20 22:24 | PDOC ---
Exam Note: Timothy Note: Please also refer to the separate dictated note~for this date of service dictated separately.~Patient seen individually. Discussed the patient with Nursing staff reviewed the chart.~Reviewed interim history and current functioning. Reviewed vital signs,~Labs/ Radiology~and current medications noted below. Continue current treatment with the changes noted in the dictated addendum note Assessment: Vital Signs: Vital Signs Date Time Temp Pulse Resp B/P (MAP) Pulse Ox O2 Delivery O2 Flow Rate FiO2 02/20/19 19:51 76 115/81 02/20/19 15:56 97.9 20 97 I&O Intake and Output 02/20/19 07:00 Intake Total 1560 ml Balance 1560 ml Intake Oral 1560 ml Current Medications: Meds: Current Medications Acetaminophen (Tylenol) 650 mg PRN Q6HRS PRN PO PAIN / TEMP; Start 02/02/19 at 20:00; Stop 02/02/19 at 20:19; Status DC Multi-Ingredient Ointment (Analgesic [place]) 1 shwetha PRN QID PRN TP MUSCLE PAIN Last administered on 02/17/19at 12:15; Start 02/02/19 at 20:00 Al Hydroxide/Mg Hydroxide (Mylanta Plus Xs) 15 ml PRN AFTMEALHC PRN PO DYSPEPSIA; Start 02/02/19 at 20:00 Magnesium Hydroxide (Milk Of Magnesia) 2,400 mg PRN QHS PRN PO CONSTIPATION; Start 02/02/19 at 20:00 Nicotine (Nicoderm Cq 14mg) 1 patch DAILY TD Last administered on 02/20/19at 08:07; Start 02/03/19 at 09:00 Acetaminophen (Tylenol) 650 mg PRN Q6HRS PRN PO PAIN / TEMP Last administered on 02/15/19at 05:19; Start 02/02/19 at 20:00 Non-Formulary Medication (Nicotine (NICODERM CQ 14mg)) 1 patch DAILY TD ; Start 02/03/19 at 09:00; Stop 02/03/19 at 09:00; Status DC Clonazepam (KlonoPIN) 1 mg TID PO Last administered on 02/20/19at 19:49; Start 02/03/19 at 09:00 Divalproex Sodium (Depakote Er) 1,000 mg DAILY PO Last administered on 02/20/19 08:08; Start 02/03/19 at 09:00 Risperidone (RisperDAL) 2 mg TID PO Last administered on 02/20/19 19:49; S tart 02/03/19 at 09:00 Isosorbide Mononitrate (Imdur) 30 mg DAILY PO Last administered on 02/10/19 08:02; Start 02/03/19 at 09:00; Stop 02/10/19 at 16:31; Status DC Lisinopril (Prinivil) 10 mg BID PO Last administered on 02/10/19 07:59; Start 02/03/19 at 09:00; Stop 02/10/19 at 19:21; Status DC Metoprolol Tartrate (Lopressor) 12.5 mg BID PO Last administered on 02/20/19 19:51; Start 02/03/19 at 09:00 Acyclovir (Zovirax) 200 mg BID PO Last administered on 02/20/19 19:51; Start 02/03/19 at 09:00 Aspirin (Children'S Aspirin) 81 mg DAILYWBKFT PO Last administered on 02/20/19 08:07; Start 02/03/19 at 08:00 Atorvastatin Calcium (Lipitor) 10 mg DAILY PO Last administered on 02/20/19 08:07; Start 02/03/19 at 09:00 Celecoxib (CeleBREX) 200 mg DAILY PO Last administered on 02/20/19 08:09; Start 02/03/19 at 09:00 Pantoprazole Sodium (Protonix) 40 mg DAILYAC PO Last administered on 02/20/19 08:09; Start 02/03/19 at 07:30 Paroxetine HCl (Paxil) 20 mg DAILY PO Last administered on 02/04/19 07:52; Start 02/03/19 at 09:00; Stop 02/04/19 at 18:28; Status DC Sennosides (Senna) 8.6 mg DAILY PO Last administered on 02/20/19 08:07; Start 02/03/19 at 09:00 Vitamin D (Vitamin D3) 50,000 unit WEEKLY PO Last administered on 02/19/19 08:28; Start 02/05/19 at 09:00 Ferrous Sulfate (Feosol) 325 mg BID PO Last administered on 02/20/19 19:51; Start 02/04/19 at 21:00 Ascorbic Acid (Vitamin C) 500 mg BID PO Last administered on 02/20/19at 19:49; Start 02/04/19 at 21:00 Paroxetine HCl (Paxil) 15 mg DAILY PO Last administered on 02/06/19at 08:15; Start 02/05/19 at 09:00; Stop 02/06/19 at 23:50; Status DC Paroxetine HCl (Paxil) 10 mg DAILY PO Last administered on 02/17/19at 07:59; Start 02/07/19 at 09:00; Stop 02/17/19 at 11:26; Status DC Benztropine Mesylate (Cogentin) 1 mg DAILY PO ; Start 02/10/19 at 09:00; Stop 02/10/19 at 09:00; Status DC Benztropine Mesylate (Cogentin) 1 mg BID PO Last administered on 02/12/19at 19:47; Start 02/10/19 at 09:00; Stop 02/13/19 at 08:01; Status DC Sodium Chloride 500 ml @ 0 mls/hr 1X ONCE IV Last administered on 02/10/19at 15:38; Start 02/10/19 at 15:45; Stop 02/10/19 at 15:46; Status DC Lisinopril (Prinivil) 5 mg DAILY PO Last administered on 02/20/19at 08:08; Start 02/11/19 at 09:00 Benztropine Mesylate (Cogentin) 0.5 mg BID PO Last administered on 02/20/19at 19:49; Start 02/14/19 at 21:00 Fluphenazine HCl (Prolixin) 1.25 mg BID PO Last administered on 02/20/19at 19 :50; Start 02/16/19 at 21:00 Active Scripts Active Reported Acyclovir 200 Mg Capsule 200 Mg PO BID Senna (Sennosides) 8.6 Mg Tablet 8.6 Mg PO DAILY Paxil (Paroxetine Hcl) 20 Mg Tablet 20 Mg PO DAILY Omeprazole 20 Mg Capsule.dr 20 Mg PO DAILY Metoprolol Tartrate 25 Mg Tablet 12.5 Mg PO BID Lisinopril 10 Mg Tablet 10 Mg PO BID Isosorbide Mononitrate Er (Isosorbide Mononitrate) 30 Mg Tab.er.24h 30 Mg PO DAILY Celebrex (Celecoxib) 200 Mg Capsule 200 Mg PO DAILY Atorvastatin Calcium 10 Mg Tablet 10 Mg PO DAILY Aspirin 81 Mg Tab.chew 81 Mg PO DAILY Risperdal (Risperidone) 1 Mg Tablet 2 Mg PO TID NICODERM CQ 14mg (Nicotine) 1 Each Patch.td24 1 Patch TD DAILY Remove patch QHS if pt unable to sleep Depakote Er (Divalproex Sodium) 500 Mg Tab.er.24h 1,000 Mg PO DAILY Clonazepam 1 Mg Tablet 1 Mg PO TID Tylenol (Acetaminophen) 325 Mg Tablet 650 Mg PO PRN Q6HRS PRN Max Acetaminophen dose is 4000mg in 24 hours from all sources for Adults I have reviewed the current psychotropics carefully including drug interactions. Risk benefit ratio favors no change other than as noted in my dictated progress note. Diagnosis: Problems: (1) Schizoaffective disorder (2) Anxiety disorder (3) Impulse control disorder (4) Schizoaffective disorder, chronic condition with acute exacerbation (5) Psychosis, atypical BESSIE SOLORIO MD February 20, 2019 22:24
--- NOTE | 2019-02-21 01:18 | NUR ---
Pt located in her room this evening. Pt very resistive to taking a shower. During shower pt was yelling, calling staff racist; saying that we were treating her like a nr. Pt telling staff that they better watch out because "you and the other bitch are going to get it." Once back to her room, pt tearful and denied saying these things. Pt adamantly stating that the cotton washer's need to be fired and she was going to file a police report. Later in the evening, pt could be heard laughing hysterically from her bed.
[2019-02-21 06:10] VITALS: BP 150/87
[2019-02-21] MEDS: PANTOPRAZOLE 40 MG TABLET. PO SCH (08:08)
[2019-02-21] MEDS: ASPIRIN 81 MG TAB.CHEW PO SCH (08:08)
[2019-02-21] MEDS: CELECOXIB 100 MG CAPSULE PO SCH (08:09)
[2019-02-21] MEDS: BENZTROPINE MESYLATE 0.5 MG TABLET PO SCH ×2 (08:09→19:50)
[2019-02-21] MEDS: FERROUS SULFATE 325 MG TABLET. PO SCH ×2 (08:09→19:49)
[2019-02-21] MEDS: DIVALPROEX ER 500 MG TAB.ER.24H PO SCH (08:09)
[2019-02-21] MEDS: ATORVASTATIN CALCIUM 10 MG TABLET. PO SCH (08:12)
[2019-02-21] MEDS: clonazePAM 1 MG TABLET PO SCH ×3 (08:12→19:52)
[2019-02-21] MEDS: METOPROLOL TART IMMED RELEASE 25 MG TABLET PO SCH ×2 (08:13→19:52)
[2019-02-21] MEDS: SENNOSIDES 8.6 MG TABLET PO SCH (08:14)
[2019-02-21] MEDS: ASCORBIC ACID 500 MG TABLET PO SCH ×2 (08:14→19:50)
[2019-02-21] MEDS: risperiDONE 2 MG TABLET. PO SCH ×3 (08:14→19:49)
[2019-02-21] MEDS: LISINOPRIL 5 MG TABLET. PO SCH (08:14)
[2019-02-21] MEDS: NICOTINE 14MG PATCH. TD SCH (08:15)
[2019-02-21] MEDS: ACYCLOVIR 200 MG CAPSULE PO SCH ×2 (08:15→19:52)
--- NOTE | 2019-02-21 11:04 | NUR ---
Pt was labile this am one minute she was appropriate, calm, compliant then the next she would laugh hysterically. No agitation, aggression, hallucinations or delusions. Pt is compliant with her medication and assessment.
--- NOTE | 2019-02-21 12:22 | PN ---
DATE: 02/20/2019 PSYCHIATRIC PROGRESS NOTE This note covers elements not covered in my initial note of 02/20/2019. SUBJECTIVE: I met with the patient in evening of 02/20/2019. The patient slept 7 hours previous night. She has done better during the day, but this evening, she was extremely psychotic, paranoid, agitated per nursing staff and this was very evident as I met with her in her room at length. She is complaining about nursing program coordinator who has tattoos, having helped her with the shower and fairly bizarre, delusional, suspicious. REVIEW OF SYSTEMS: No CV, , pulmonary, eye, ENT system symptoms on review. MENTAL STATUS EXAM: Oriented to herself and situation. Speech is coherent, pressured. Abstraction fair, computation impaired, language function is intact, attention span short. Mood and affect remains labile. LABORATORY DATA: Reviewed. IMPRESSION: Unchanged from initial note. PLAN: No change from initial note. Increase Prolixin from 1.25 b.i.d. to 2.5 mg b.i.d. Rest unchanged. MAN Yaron SOLORIO MD DR: MELODIE/nancy JOB#: [id number] / [id number]
[2019-02-21] MEDS: ACETAMINOPHEN 325 MG TABLET PO PRN (13:24)
[2019-02-21 16:03] VITALS: BP 147/89
--- NOTE | 2019-02-21 22:29 | PDOC ---
Exam Note: Timothy Note: Please also refer to the separate dictated note~for this date of service dictated separately.~Patient seen individually. Discussed the patient with Nursing staff reviewed the chart.~Reviewed interim history and current functioning. Reviewed vital signs,~Labs/ Radiology~and current medications noted below. Continue current treatment with the changes noted in the dictated addendum note Assessment: Vital Signs: Vital Signs Date Time Temp Pulse Resp B/P (MAP) Pulse Ox O2 Delivery O2 Flow Rate FiO2 02/21/19 19:52 63 147/89 02/21/19 16:03 98.0 20 95 I&O Intake and Output 02/21/19 06:59 Intake Total 1320 ml Balance 1320 ml Intake Oral 1320 ml Current Medications: Meds: Current Medications Acetaminophen (Tylenol) 650 mg PRN Q6HRS PRN PO PAIN / TEMP; Start 02/02/19 at 20:00; Stop 02/02/19 at 20:19; Status DC Multi-Ingredient Ointment (Analgesic [place]) 1 shwetha PRN QID PRN TP MUSCLE PAIN Last administered on 02/17/19at 12:15; Start 02/02/19 at 20:00 Al Hydroxide/Mg Hydroxide (Mylanta Plus Xs) 15 ml PRN AFTMEALHC PRN PO DYSPEPSIA; Start 02/02/19 at 20:00 Magnesium Hydroxide (Milk Of Magnesia) 2,400 mg PRN QHS PRN PO CONSTIPATION; Start 02/02/19 at 20:00 Nicotine (Nicoderm Cq 14mg) 1 patch DAILY TD Last administered on 02/21/19at 08:15; Start 02/03/19 at 09:00 Acetaminophen (Tylenol) 650 mg PRN Q6HRS PRN PO PAIN / TEMP Last administered on 02/21/19at 13:24; Start 02/02/19 at 20:00 Non-Formulary Medication (Nicotine (NICODERM CQ 14mg)) 1 patch DAILY TD ; Start 02/03/19 at 09:00; Stop 02/03/19 at 09:00; Status DC Clonazepam (KlonoPIN) 1 mg TID PO Last administered on 02/21/19at 19:52; Start 02/03/19 at 09:00 Divalproex Sodium (Depakote Er) 1,000 mg DAILY PO Last administered on 02/21/19 08:09; Start 02/03/19 at 09:00 Risperidone (RisperDAL) 2 mg TID PO Last administered on 02/21/19 19:49; S tart 02/03/19 at 09:00 Isosorbide Mononitrate (Imdur) 30 mg DAILY PO Last administered on 02/10/19 08:02; Start 02/03/19 at 09:00; Stop 02/10/19 at 16:31; Status DC Lisinopril (Prinivil) 10 mg BID PO Last administered on 02/10/19 07:59; Start 02/03/19 at 09:00; Stop 02/10/19 at 19:21; Status DC Metoprolol Tartrate (Lopressor) 12.5 mg BID PO Last administered on 02/21/19 19:52; Start 02/03/19 at 09:00 Acyclovir (Zovirax) 200 mg BID PO Last administered on 02/21/19 19:52; Start 02/03/19 at 09:00 Aspirin (Children'S Aspirin) 81 mg DAILYWBKFT PO Last administered on 02/21/19 08:08; Start 02/03/19 at 08:00 Atorvastatin Calcium (Lipitor) 10 mg DAILY PO Last administered on 02/21/19 08:12; Start 02/03/19 at 09:00 Celecoxib (CeleBREX) 200 mg DAILY PO Last administered on 02/21/19 08:09; Start 02/03/19 at 09:00 Pantoprazole Sodium (Protonix) 40 mg DAILYAC PO Last administered on 02/21/19 08:08; Start 02/03/19 at 07:30 Paroxetine HCl (Paxil) 20 mg DAILY PO Last administered on 02/04/19 07:52; Start 02/03/19 at 09:00; Stop 02/04/19 at 18:28; Status DC Sennosides (Senna) 8.6 mg DAILY PO Last administered on 02/21/19 08:14; Start 02/03/19 at 09:00 Vitamin D (Vitamin D3) 50,000 unit WEEKLY PO Last administered on 02/19/19 08:28; Start 02/05/19 at 09:00 Ferrous Sulfate (Feosol) 325 mg BID PO Last administered on 02/21/19 19:49; Start 02/04/19 at 21:00 Ascorbic Acid (Vitamin C) 500 mg BID PO Last administered on 02/21/19at 19:50; Start 02/04/19 at 21:00 Paroxetine HCl (Paxil) 15 mg DAILY PO Last administered on 02/06/19at 08:15; Start 02/05/19 at 09:00; Stop 02/06/19 at 23:50; Status DC Paroxetine HCl (Paxil) 10 mg DAILY PO Last administered on 02/17/19at 07:59; Start 02/07/19 at 09:00; Stop 02/17/19 at 11:26; Status DC Benztropine Mesylate (Cogentin) 1 mg DAILY PO ; Start 02/10/19 at 09:00; Stop 02/10/19 at 09:00; Status DC Benztropine Mesylate (Cogentin) 1 mg BID PO Last administered on 02/12/19at 19:47; Start 02/10/19 at 09:00; Stop 02/13/19 at 08:01; Status DC Sodium Chloride 500 ml @ 0 mls/hr 1X ONCE IV Last administered on 02/10/19at 15:38; Start 02/10/19 at 15:45; Stop 02/10/19 at 15:46; Status DC Lisinopril (Prinivil) 5 mg DAILY PO Last administered on 02/21/19at 08:14; Start 02/11/19 at 09:00 Benztropine Mesylate (Cogentin) 0.5 mg BID PO Last administered on 02/21/19 19:50; Start 02/14/19 at 21:00 Fluphenazine HCl (Prolixin) 1.25 mg BID PO Last administered on 02/20/19 19 :50; Start 02/16/19 at 21:00; Stop 02/21/19 at 02:42; Status DC Fluphenazine HCl (Prolixin) 2.5 mg BID PO Last administered on 02/21/19at 19:50; Start 02/21/19 at 09:00 Active Scripts Active Reported Acyclovir 200 Mg Capsule 200 Mg PO BID Senna (Sennosides) 8.6 Mg Tablet 8.6 Mg PO DAILY Paxil (Paroxetine Hcl) 20 Mg Tablet 20 Mg PO DAILY Omeprazole 20 Mg Capsule.dr 20 Mg PO DAILY Metoprolol Tartrate 25 Mg Tablet 12.5 Mg PO BID Lisinopril 10 Mg Tablet 10 Mg PO BID Isosorbide Mononitrate Er (Isosorbide Mononitrate) 30 Mg Tab.er.24h 30 Mg PO DAILY Celebrex (Celecoxib) 200 Mg Capsule 200 Mg PO DAILY Atorvastatin Calcium 10 Mg Tablet 10 Mg PO DAILY Aspirin 81 Mg Tab.chew 81 Mg PO DAILY Risperdal (Risperidone) 1 Mg Tablet 2 Mg PO TID NICODERM CQ 14mg (Nicotine) 1 Each Patch.td24 1 Patch TD DAILY Remove patch QHS if pt unable to sleep Depakote Er (Divalproex Sodium) 500 Mg Tab.er.24h 1,000 Mg PO DAILY Clonazepam 1 Mg Tablet 1 Mg PO TID Tylenol (Acetaminophen) 325 Mg Tablet 650 Mg PO PRN Q6HRS PRN Max Acetaminophen dose is 4000mg in 24 hours from all sources for Adults I have reviewed the current psychotropics carefully including drug interactions. Risk benefit ratio favors no change other than as noted in my dictated progress note. Diagnosis: Problems: (1) Schizoaffective disorder (2) Anxiety disorder (3) Impulse control disorder (4) Schizoaffective disorder, chronic condition with acute exacerbation (5) Psychosis, atypical BESSIE SOLORIO MD February 21, 2019 22:29
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
--- NOTE | 2019-02-21 23:06 | PN ---
DATE: 02/21/2019 PSYCHIATRIC PROGRESS NOTE This note covers elements not covered in my initial note 02/21/2019. SUBJECTIVE: I met with the patient in the evening. The patient slept 6 hours previous night. Per nursing report, she has had a very difficult day today. Mood has been labile. She has been tearful at times, suspicious. REVIEW OF SYSTEMS: No CV, , pulmonary, eye system symptoms on review. Reliability varies. MENTAL STATUS EXAM: Oriented to herself and situation. Speech is coherent, rapid at times. Abstraction fair, computation impaired, language function intact, attention span short. Mood and affect remains labile. LABORATORY DATA: Reviewed. IMPRESSION: Schizoaffective disorder, bipolar type, mixed with psychotic features, probable urinary tract infection. Culture is pending. PLAN: Continue current psychotropics. Depending on her progress if mood lability persists, we may need to increase the Prolixin in the next day or two. Rest unchanged. BESSIE SOLORIO MD DR: MELODIE/nancy JOB#: [id number] / [id number]
--- NOTE | 2019-02-22 00:28 | PN ---
DATE: 02/19/2019 PSYCHIATRIC PROGRESS NOTE This late entry 02/19/2019 covers elements not covered in my initial note. SUBJECTIVE: I met with the patient in the evening. The patient slept 7-1/2 hours previous night. She has done better during the day. REVIEW OF SYSTEMS: No CV, , pulmonary, eye system symptoms on review. MENTAL STATUS EXAM: Oriented reasonably. Speech is coherent, rapid at times. Abstraction fair, computation impaired, language function intact, attention span short. Mood and affect still remains somewhat anxious, labile, but improved. LABORATORY DATA: Reviewed. IMPRESSION: Unchanged from initial note. PLAN: No change from initial note. MAN Yaron SOLORIO MD DR: MELODIE/nancy JOB#: [id number] / [id number]
[2019-02-22 05:57] VITALS: BP 157/93
[2019-02-22] MEDS: ASPIRIN 81 MG TAB.CHEW PO SCH (08:05)
[2019-02-22] MEDS: PANTOPRAZOLE 40 MG TABLET. PO SCH (08:05)
[2019-02-22] MEDS: BENZTROPINE MESYLATE 0.5 MG TABLET PO SCH ×2 (08:06→19:16)
[2019-02-22] MEDS: FERROUS SULFATE 325 MG TABLET. PO SCH ×2 (08:06→19:16)
[2019-02-22] MEDS: CELECOXIB 100 MG CAPSULE PO SCH (08:06)
[2019-02-22] MEDS: DIVALPROEX ER 500 MG TAB.ER.24H PO SCH (08:06)
[2019-02-22] MEDS: ATORVASTATIN CALCIUM 10 MG TABLET. PO SCH (08:07)
[2019-02-22] MEDS: clonazePAM 1 MG TABLET PO SCH ×3 (08:07→19:18)
[2019-02-22] MEDS: METOPROLOL TART IMMED RELEASE 25 MG TABLET PO SCH ×2 (08:07→19:16)
[2019-02-22] MEDS: ASCORBIC ACID 500 MG TABLET PO SCH ×2 (08:08→19:15)
[2019-02-22] MEDS: SENNOSIDES 8.6 MG TABLET PO SCH (08:08)
[2019-02-22] MEDS: LISINOPRIL 5 MG TABLET. PO SCH (08:08)
[2019-02-22] MEDS: risperiDONE 2 MG TABLET. PO SCH ×3 (08:08→19:16)
[2019-02-22] MEDS: NICOTINE 14MG PATCH. TD SCH (08:09)
[2019-02-22] MEDS: ACYCLOVIR 200 MG CAPSULE PO SCH ×2 (08:09→19:19)
[2019-02-22 10:33] LABS: BASO # 0.1 x10^3/uL (0.0-0.2); BASO % 1 % (0-3); EOS # 0.2 x10^3/uL (0.0-0.7); EOS % 2 % (0-3); HEMATOCRIT 35.6 % (36.0-47.0); HEMOGLOBIN 11.7 g/dL (12.0-15.5); LYMPH # 1.7 x10^3/uL (1.0-4.8); LYMPH % 20 % (24-48); MEAN CORPUSCULAR HEMOGLOBIN 28 pg (25-35); MEAN CORPUSCULAR HGB CONC 33 g/dL (31-37); MEAN CORPUSCULAR VOLUME 85 fL (79-100); MONO # 0.8 x10^3/uL (0.0-1.1); MONO % 10 % (0-9); NEUT # 5.8 x10^3uL (1.8-7.7); NEUT % 68 % (31-73); PLATELET COUNT 222 x10^3/uL (140-400); RED BLOOD COUNT 4.21 x10^6/uL (3.50-5.40); RED CELL DISTRIBUTION WIDTH 19.6 % (11.5-14.5); WHITE BLOOD COUNT 8.5 x10^3/uL (4.0-11.0)
[2019-02-22 10:42] LABS: ALBUMIN 3.2 g/dL (3.4-5.0); ALBUMIN/GLOBULIN RATIO 0.8 (1.0-1.7); CALCIUM 9.3 mg/dL (8.5-10.1); CREATININE 0.7 mg/dL (0.6-1.0); GFR 87.5; POTASSIUM 4.6 mmol/L (3.5-5.1); TOTAL BILIRUBIN 0.2 mg/dL (0.2-1.0); TOTAL PROTEIN 7.1 g/dL (6.4-8.2)
--- NOTE | 2019-02-22 10:58 | NUR ---
Pt was angry this am statin "I'll kill Dr. Maher for messing with my prolixin." Nurse provided emotional support and redirection. No hallucinations or delusions. Pt is compliant with her medication and assessment.
[2019-02-22 11:49] LABS: % BANDS 3 % (0-9); % BASOS 3 % (0-3); % EOS 1 % (0-5); % LYMPHS 23 % (24-48); % MONOS 8 % (0-10); % SEGS 62 % (35-66); ANISOCYTOSIS SLIGHT; HYPOCHROMIA SLIGHT; PLT ESTIMATE ADEQUATE (ADEQUATE)
[2019-02-22 16:27] VITALS: BP 121/77
[2019-02-22] MEDS: LACTOBACILLUS RHAMNOSUS GG 1 CAPSULE. PO SCH (19:48)
[2019-02-22] MEDS: CEFDINIR 300 MG CAPSULE PO SCH (19:48)
--- NOTE | 2019-02-22 22:32 | PDOC ---
Exam Note: Timothy Note: Please also refer to the separate dictated note~for this date of service dictated separately.~Patient seen individually. Discussed the patient with Nursing staff reviewed the chart.~Reviewed interim history and current functioning. Reviewed vital signs,~Labs/ Radiology~and current medications noted below. Continue current treatment with the changes noted in the dictated addendum note Assessment: Vital Signs: Vital Signs Date Time Temp Pulse Resp B/P (MAP) Pulse Ox O2 Delivery O2 Flow Rate FiO2 02/22/19 19:16 74 121/77 02/22/19 16:27 97.3 20 96 Room Air I&O Intake and Output 02/22/19 06:59 Intake Total 1980 ml Balance 1980 ml Intake Oral 1980 ml # Voids 1 Labs: Laboratory Tests Test 02/22/19 10:20 White Blood Count 8.5 x10^3/uL (4.0-11.0) Red Blood Count 4.21 x10^6/uL (3.50-5.40) Hemoglobin 11.7 g/dL (12.0-15.5) L Hematocrit 35.6 % (36.0-47.0) L Mean Corpuscular Volume 85 fL (79-100) Mean Corpuscular Hemoglobin 28 pg (25-35) Mean Corpuscular Hemoglobin Concent 33 g/dL (31-37) Red Cell Distribution Width 19.6 % (11.5-14.5) H Platelet Count 222 x10^3/uL (140-400) Neutrophils (%) (Auto) 68 % (31-73) Lymphocytes (%) (Auto) 20 % (24-48) L Monocytes (%) (Auto) 10 % (0-9) H Eosinophils (%) (Auto) 2 % (0-3) Basophils (%) (Auto) 1 % (0-3) Neutrophils # (Auto) 5.8 x10^3uL (1.8-7.7) Lymphocytes # (Auto) 1.7 x10^3/uL (1.0-4.8) Monocytes # (Auto) 0.8 x10^3/uL (0.0-1.1) Eosinophils # (Auto) 0.2 x10^3/uL (0.0-0.7) Basophils # (Auto) 0.1 x10^3/uL (0.0-0.2) Segmented Neutrophils % 62 % (35-66) Band Neutrophils % 3 % (0-9) Lymphocytes % 23 % (24-48) L Monocytes % 8 % (0-10) Eosinophils % 1 % (0-5) Basophils % 3 % (0-3) Platelet Estimate Adequate (ADEQUATE) Large Platelets Occ Hypochromasia Slight Anisocytosis Slight Sodium Level 137 mmol/L (136-145) Potassium Level 4.6 mmol/L (3.5-5.1) Chloride Level 98 mmol/L (98-107) Carbon Dioxide Level 31 mmol/L (21-32) Anion Gap 8 (6-14) Blood Urea Nitrogen 13 mg/dL (7-20) Creatinine 0.7 mg/dL (0.6-1.0) Estimated GFR (Cockcroft-Gault) 87.5 BUN/Creatinine Ratio 19 (6-20) Glucose Level 98 mg/dL (70-99) Calcium Level 9.3 mg/dL (8.5-10.1) Total Bilirubin 0.2 mg/dL (0.2-1.0) Aspartate Amino Transferase (AST) 5 U/L (15-37) L Alanine Aminotransferase (ALT) 11 U/L (14-59) L Alkaline Phosphatase 75 U/L (46-116) Total Protein 7.1 g/dL (6.4-8.2) Albumin 3.2 g/dL (3.4-5.0) L Albumin/Globulin Ratio 0.8 (1.0-1.7) L Current Medications: Meds: Current Medications Acetaminophen (Tylenol) 650 mg PRN Q6HRS PRN PO PAIN / TEMP; Start 02/02/19 at 20:00; Stop 02/02/19 at 20:19; Status DC Multi-Ingredient Ointment (Analgesic [place]) 1 shwetha PRN QID PRN TP MUSCLE PAIN Last administered on 02/17/19at 12:15; Start 02/02/19 at 20:00 Al Hydroxide/Mg Hydroxide (Mylanta Plus Xs) 15 ml PRN AFTMEALHC PRN PO DYSPEPSIA; Start 02/02/19 at 20:00 Magnesium Hydroxide (Milk Of Magnesia) 2,400 mg PRN QHS PRN PO CONSTIPATION; Start 02/02/19 at 20:00 Nicotine (Nicoderm Cq 14mg) 1 patch DAILY TD Last administered on 02/22/19 08:09; Start 02/03/19 at 09:00 Acetaminophen (Tylenol) 650 mg PRN Q6HRS PRN PO PAIN / TEMP Last administered on 02/21/19 13:24; Start 02/02/19 at 20:00 Non-Formulary Medication (Nicotine (NICODERM CQ 14mg)) 1 patch DAILY TD ; Start 02/03/19 at 09:00; Stop 02/03/19 at 09:00; Status DC Clonazepam (KlonoPIN) 1 mg TID PO Last administered on 02/22/19 19:18; Start 02/03/19 at 09:00 Divalproex Sodium (Depakote Er) 1,000 mg DAILY PO Last administered on 08:06; Start 02/03/19 at 09:00 Risperidone (RisperDAL) 2 mg TID PO Last administered on 02/22/19 19:16; Start 02/03/19 at 09:00 Isosorbide Mononitrate (Imdur) 30 mg DAILY PO Last administered on 02/10/19 08:02; Start 02/03/19 at 09:00; Stop 02/10/19 at 16:31; Status DC Lisinopril (Prinivil) 10 mg BID PO Last administered on 02/10/19 07:59; Start 02/03/19 at 09:00; Stop 02/10/19 at 19:21; Status DC Metoprolol Tartrate (Lopressor) 12.5 mg BID PO Last administered on 02/22/19 19:16; Start 02/03/19 at 09:00 Acyclovir (Zovirax) 200 mg BID PO Last administered on 02/22/19 19:19; Start 02/03/19 at 09:00 Aspirin (Children'S Aspirin) 81 mg DAILYWBKFT PO Last administered on 02/22/19 08:05; Start 02/03/19 at 08:00 Atorvastatin Calcium (Lipitor) 10 mg DAILY PO Last administered on 02/22/19 08:07; Start 02/03/19 at 09:00 Celecoxib (CeleBREX) 200 mg DAILY PO Last administered on 02/22/19 08:06; Start 02/03/19 at 09:00 Pantoprazole Sodium (Protonix) 40 mg DAILYAC PO Last administered on 02/22/19 08:05; Start 02/03/19 at 07:30 Paroxetine HCl (Paxil) 20 mg DAILY PO Last administered on 02/04/19at 07:52; Start 02/03/19 at 09:00; Stop 02/04/19 at 18:28; Status DC Sennosides (Senna) 8.6 mg DAILY PO Last administered on 02/22/19 08:08; Start 02/03/19 at 09:00 Vitamin D (Vitamin D3) 50,000 unit WEEKLY PO Last administered on 02/19/19 08:28; Start 02/05/19 at 09:00 Ferrous Sulfate (Feosol) 325 mg BID PO Last administered on 02/22/19 19:16; Start 02/04/19 at 21:00 Ascorbic Acid (Vitamin C) 500 mg BID PO Last administered on 02/22/19 19:15; Start 02/04/19 at 21:00 Paroxetine HCl (Paxil) 15 mg DAILY PO Last administered on 02/06/19at 08:15; Start 02/05/19 at 09:00; Stop 02/06/19 at 23:50; Status DC Paroxetine HCl (Paxil) 10 mg DAILY PO Last administered on 02/17/19at 07:59; Start 02/07/19 at 09:00; Stop 02/17/19 at 11:26; Status DC Benztropine Mesylate (Cogentin) 1 mg DAILY PO ; Start 02/10/19 at 09:00; Stop 02/10/19 at 09:00; Status DC Benztropine Mesylate (Cogentin) 1 mg BID PO Last administered on 02/12/19at 19:47; Start 02/10/19 at 09:00; Stop 02/13/19 at 08:01; Status DC Sodium Chloride 500 ml @ 0 mls/hr 1X ONCE IV Last administered on 02/10/19at 15:38; Start 02/10/19 at 15:45; Stop 02/10/19 at 15:46; Status DC Lisinopril (Prinivil) 5 mg DAILY PO Last administered on 02/22/19at 08:08; Start 02/11/19 at 09:00 Benztropine Mesylate (Cogentin) 0.5 mg BID PO Last administered on 02/22/19 19:16; Start 02/14/19 at 21:00 Fluphenazine HCl (Prolixin) 1.25 mg BID PO Last administered on 02/20/19at 19:50; Start 02/16/19 at 21:00; Stop 02/21/19 at 02:42; Status DC Fluphenazine HCl (Prolixin) 2.5 mg BID PO Last administered on 02/22/19 19:15; Start 02/21/19 at 09:00 Cefdinir (Omnicef) 300 mg BID PO Last administered on 02/22/19 19:48; Start 02/22/19 at 21:00 Lactobacillus Rhamnosus (Culturelle) 1 cap BID PO Last administered on 02/22/19 19:48; Start 02/22/19 at 21:00 Active Scripts Active Reported Acyclovir 200 Mg Capsule 200 Mg PO BID Senna (Sennosides) 8.6 Mg Tablet 8.6 Mg PO DAILY Paxil (Paroxetine Hcl) 20 Mg Tablet 20 Mg PO DAILY Omeprazole 20 Mg Capsule.dr 20 Mg PO DAILY Metoprolol Tartrate 25 Mg Tablet 12.5 Mg PO BID Lisinopril 10 Mg Tablet 10 Mg PO BID Isosorbide Mononitrate Er (Isosorbide Mononitrate) 30 Mg Tab.er.24h 30 Mg PO DAILY Celebrex (Celecoxib) 200 Mg Capsule 200 Mg PO DAILY Atorvastatin Calcium 10 Mg Tablet 10 Mg PO DAILY Aspirin 81 Mg Tab.chew 81 Mg PO DAILY Risperdal (Risperidone) 1 Mg Tablet 2 Mg PO TID NICODERM CQ 14mg (Nicotine) 1 Each Patch.td24 1 Patch TD DAILY Remove patch QHS if pt unable to sleep Depakote Er (Divalproex Sodium) 500 Mg Tab.er.24h 1,000 Mg PO DAILY Clonazepam 1 Mg Tablet 1 Mg PO TID Tylenol (Acetaminophen) 325 Mg Tablet 650 Mg PO PRN Q6HRS PRN Max Acetaminophen dose is 4000mg in 24 hours from all sources for Adults I have reviewed the current psychotropics carefully including drug interactions. Risk benefit ratio favors no change other than as noted in my dictated progress note. Diagnosis: Problems: (1) Schizoaffective disorder (2) Anxiety disorder (3) Impulse control disorder (4) Schizoaffective disorder, chronic condition with acute exacerbation (5) Psychosis, atypical BESSIE SOLORIO MD February 22, 2019 22:32
--- NOTE | 2019-02-22 22:36 | PN ---
DATE: 02/22/2019 PSYCHIATRIC PROGRESS NOTE This note covers elements not covered in my initial note 02/22/2019. SUBJECTIVE: I met with the patient in the evening. The patient slept 6-1/2 hours previous night. She has been quite paranoid, psychotic, having some hand tremors and feels Prolixin is making her psychosis worse. She has been irritable, angry, told the nursing staff that she wanted to kill me. I addressed this with her individually at some length, explained the reasons for changes in her psychotropics. She became tearful, labile. The urine C and S awaited and this may well be a significant contributing factor to her worsening mood lability. REVIEW OF SYSTEMS: No CV, , pulmonary, eye, ENT system symptoms on review. MENTAL STATUS EXAM: Oriented reasonably. Speech is coherent, pressured at times. Abstraction fair, computation impaired, language function intact, attention span short. Mood and affect remains labile, paranoid. LABORATORY DATA: Reviewed. IMPRESSION: Unchanged from initial note. Schizoaffective disorder, bipolar type, mixed with psychotic features, urinary tract infection. Anxiety disorder, unspecified. Rest unchanged. PLAN: Continue current psychotropics. Treat the UTI once sensitivity received. Maintain Cogentin, may need to increase this, adjust further as clinically indicated. BESSIE SOLORIO MD DR: MELODIE/nancy JOB#: [id number] / [id number]
--- NOTE | 2019-02-22 23:58 | NUR ---
Nursing Note the patient was located in the hallway due to weather conditions upon the beginning of the shift. The patient was irritable and verbally aggressive with staff during and after being in the hallway. The patient was placed in the hoffman several times r/t yelling and cursing at staff in the day room. The patient is delusional and believes she is . The patient was resistive with medications because she thinks they will hurt the baby. The patient stated numerous times that she does not like Dr. Maher and stated that "He is a slob." Also the patient stated that she is a psychic. The patient is currently sleeping in her room.
[2019-02-23] MEDS ORDERED: ASCO500T3 PO (05:00)
[2019-02-23] MEDS ORDERED: BENZ0.5T32 PO (05:03)
[2019-02-23] MEDS ORDERED: CHOL500021 PO (05:05)
[2019-02-23] MEDS ORDERED: FERR325T14 PO (05:06)
[2019-02-23] MEDS ORDERED: MAGN400O7 PO (05:08)
[2019-02-23] MEDS ORDERED: MAG30ORA2 PO (05:08)
[2019-02-23] MEDS ORDERED: METH29OI TP (05:09)
[2019-02-23] MEDS ORDERED: CEFD300C PO (05:27)
[2019-02-23] MEDS ORDERED: LACT1CAP21 PO (05:28)
[2019-02-23] MEDS ORDERED: FLUP5TAB PO (05:30)
[2019-02-23 06:28] VITALS: BP 136/66
[2019-02-23] MEDS: clonazePAM 1 MG TABLET PO SCH ×3 (07:43→21:07)
[2019-02-23] MEDS: risperiDONE 2 MG TABLET. PO SCH ×3 (07:43→21:03)
[2019-02-23] MEDS: LACTOBACILLUS RHAMNOSUS GG 1 CAPSULE. PO SCH ×2 (07:43→21:03)
[2019-02-23] MEDS: FERROUS SULFATE 325 MG TABLET. PO SCH ×2 (07:43→21:03)
[2019-02-23] MEDS: ASCORBIC ACID 500 MG TABLET PO SCH ×2 (07:43→21:03)
[2019-02-23] MEDS: NICOTINE 14MG PATCH. TD SCH (07:43)
[2019-02-23] MEDS: PANTOPRAZOLE 40 MG TABLET. PO SCH (07:43)
[2019-02-23] MEDS: DIVALPROEX ER 500 MG TAB.ER.24H PO SCH (07:44)
[2019-02-23] MEDS: BENZTROPINE MESYLATE 0.5 MG TABLET PO SCH ×2 (07:44→21:03)
[2019-02-23] MEDS: CEFDINIR 300 MG CAPSULE PO SCH ×2 (07:44→21:03)
[2019-02-23] MEDS: METOPROLOL TART IMMED RELEASE 25 MG TABLET PO SCH ×2 (07:45→21:03)
[2019-02-23] MEDS: ATORVASTATIN CALCIUM 10 MG TABLET. PO SCH (07:45)
[2019-02-23] MEDS: LISINOPRIL 5 MG TABLET. PO SCH (07:45)
[2019-02-23] MEDS: CELECOXIB 100 MG CAPSULE PO SCH (07:45)
[2019-02-23] MEDS: ASPIRIN 81 MG TAB.CHEW PO SCH (07:45)
[2019-02-23] MEDS: SENNOSIDES 8.6 MG TABLET PO SCH (07:45)
[2019-02-23] MEDS: ACYCLOVIR 200 MG CAPSULE PO SCH ×2 (07:51→21:07)
--- NOTE | 2019-02-23 08:15 | NUR ---
FATOUMATA contacted Lloyd at [facility] on to inform him that pt was not leaving today. Pt made SI statements on "feelings of wanting to kill herself". FATOUMATA informed Lloyd that on Thursday, pt was told she had to return to her placement. Pt feels that she was being punished for something was not her fault. FATOUMATA explained to pt at that time, that she could not be placed somewhere new, every time "something happened that she did not like". Lloyd agreed and stated that was pt's M.O. FATOUMATA will contact Lloyd tomorrow after tx team to let him know about discharge plans. FATOUMATA also contacted Fatimah, the transport truck driver, to let her know that pt was not needing transportation at this time.
--- NOTE | 2019-02-23 09:59 | NUR ---
Assumed care of patient at aprox. 0700. Patient is sitting in quiet hallway at time of shift change. Patient is exuberant laughing at staff during shift change. Patient is in day room at time of assessment. Patient is calm and cooperative but slightly resistive. Patient is resting in day room at this time. Will continue to monitor.
[2019-02-23 16:19] VITALS: BP 132/85
--- NOTE | 2019-02-23 22:22 | PDOC ---
Exam Note: Timothy Note: Please also refer to the separate dictated note~for this date of service dictated separately.~Patient seen individually. Discussed the patient with Nursing staff reviewed the chart.~Reviewed interim history and current functioning. Reviewed vital signs,~Labs/ Radiology~and current medications noted below. Continue current treatment with the changes noted in the dictated addendum note Assessment: Vital Signs: Vital Signs Date Time Temp Pulse Resp B/P (MAP) Pulse Ox O2 Delivery O2 Flow Rate FiO2 02/23/19 21:03 73 132/85 02/23/19 16:19 98.7 18 96 02/22/19 16:27 Room Air I&O Intake and Output 02/23/19 07:00 Intake Total 1080 ml Balance 1080 ml Intake Oral 1080 ml Current Medications: Meds: Current Medications Acetaminophen (Tylenol) 650 mg PRN Q6HRS PRN PO PAIN / TEMP; Start 02/02/19 at 20:00; Stop 02/02/19 at 20:19; Status DC Multi-Ingredient Ointment (Analgesic [place]) 1 dusty PRN QID PRN TP MUSCLE PAIN Last administered on 02/17/19at 12:15; Start 02/02/19 at 20:00 Al Hydroxide/Mg Hydroxide (Mylanta Plus Xs) 15 ml PRN AFTMEALHC PRN PO DYSPEPSIA; Start 02/02/19 at 20:00 Magnesium Hydroxide (Milk Of Magnesia) 2,400 mg PRN QHS PRN PO CONSTIPATION; Start 02/02/19 at 20:00 Nicotine (Nicoderm Cq 14mg) 1 patch DAILY TD Last administered on 02/23/19at 07:43; Start 02/03/19 at 09:00 Acetaminophen (Tylenol) 650 mg PRN Q6HRS PRN PO PAIN / TEMP Last administered on 02/21/19at 13:24; Start 02/02/19 at 20:00 Non-Formulary Medication (Nicotine (NICODERM CQ 14mg)) 1 patch DAILY TD ; Start 02/03/19 at 09:00; Stop 02/03/19 at 09:00; Status DC Clonazepam (KlonoPIN) 1 mg TID PO Last administered on 02/23/19at 21:07; Start 02/03/19 at 09:00 Divalproex Sodium (Depakote Er) 1,000 mg DAILY PO Last administered on 02/23/19 07:44; Start 02/03/19 at 09:00 Risperidone (RisperDAL) 2 mg TID PO Last administered on 02/23/19 21:03; Start 02/03/19 at 09:00 Isosorbide Mononitrate (Imdur) 30 mg DAILY PO Last administered on 02/10/19 08:02; Start 02/03/19 at 09:00; Stop 02/10/19 at 16:31; Status DC Lisinopril (Prinivil) 10 mg BID PO Last administered on 02/10/19 07:59; Start 02/03/19 at 09:00; Stop 02/10/19 at 19:21; Status DC Metoprolol Tartrate (Lopressor) 12.5 mg BID PO Last administered on 02/23/19 21:03; Start 02/03/19 at 09:00 Acyclovir (Zovirax) 200 mg BID PO Last administered on 02/23/19 21:07; Start 02/03/19 at 09:00 Aspirin (Children'S Aspirin) 81 mg DAILYWBKFT PO Last administered on 02/23/19 07:45; Start 02/03/19 at 08:00 Atorvastatin Calcium (Lipitor) 10 mg DAILY PO Last administered on 02/23/19 07:45; Start 02/03/19 at 09:00 Celecoxib (CeleBREX) 200 mg DAILY PO Last administered on 02/23/19 07:45; Start 02/03/19 at 09:00 Pantoprazole Sodium (Protonix) 40 mg DAILYAC PO Last administered on 02/23/19 07:43; Start 02/03/19 at 07:30 Paroxetine HCl (Paxil) 20 mg DAILY PO Last administered on 02/04/19 07:52; Start 02/03/19 at 09:00; Stop 02/04/19 at 18:28; Status DC Sennosides (Senna) 8.6 mg DAILY PO Last administered on 02/23/19 07:45; Start 02/03/19 at 09:00 Vitamin D (Vitamin D3) 50,000 unit WEEKLY PO Last administered on 02/19/19 08:28; Start 02/05/19 at 09:00 Ferrous Sulfate (Feosol) 325 mg BID PO Last administered on 02/23/19 21:03; Start 02/04/19 at 21:00 Ascorbic Acid (Vitamin C) 500 mg BID PO Last administered on 02/23/19at 21:03; Start 02/04/19 at 21:00 Paroxetine HCl (Paxil) 15 mg DAILY PO Last administered on 02/06/19at 08:15; Start 02/05/19 at 09:00; Stop 02/06/19 at 23:50; Status DC Paroxetine HCl (Paxil) 10 mg DAILY PO Last administered on 02/17/19at 07:59; Start 02/07/19 at 09:00; Stop 02/17/19 at 11:26; Status DC Benztropine Mesylate (Cogentin) 1 mg DAILY PO ; Start 02/10/19 at 09:00; Stop 02/10/19 at 09:00; Status DC Benztropine Mesylate (Cogentin) 1 mg BID PO Last administered on 02/12/19at 19:47; Start 02/10/19 at 09:00; Stop 02/13/19 at 08:01; Status DC Sodium Chloride 500 ml @ 0 mls/hr 1X ONCE IV Last administered on 02/10/19at 15:38; Start 02/10/19 at 15:45; Stop 02/10/19 at 15:46; Status DC Lisinopril (Prinivil) 5 mg DAILY PO Last administered on 02/23/19at 07:45; Start 02/11/19 at 09:00 Benztropine Mesylate (Cogentin) 0.5 mg BID PO Last administered on 02/23/19at 21:03; Start 02/14/19 at 21:00 Fluphenazine HCl (Prolixin) 1.25 mg BID PO Last administered on 02/20/19at 19:50; Start 02/16/19 at 21:00; Stop 02/21/19 at 02:42; Status DC Fluphenazine HCl (Prolixin) 2.5 mg BID PO Last administered on 02/23/19 21:03; Start 02/21/19 at 09:00 Cefdinir (Omnicef) 300 mg BID PO Last administered on 02/23/19 21:03; Start 02/22/19 at 21:00 Lactobacillus Rhamnosus (Culturelle) 1 cap BID PO Last administered on 02/23/19at 21:03; Start 02/22/19 at 21:00 Active Scripts Active Reported Fluphenazine Hcl 5 Mg Tablet 2.5 Mg PO BID Culturelle (Lactobacillus Rhamnosus Gg) 1 Each Capsule 1 Each PO BID Cefdinir 300 Mg Capsule 300 Mg PO BID Analgesic [place] (Methyl Salicylate/Menthol) 28 Gm Oint...g. 1 Dusty TP PRN QID PRN Milk Of Magnesia (Magnesium Hydroxide) 400 Mg/5 Ml Oral.susp 2,400 Mg PO PRN QHS PRN Mag-Al Plus Xs Suspension (Mag Hydrox/Al Hydrox/Simeth) 30 Ml Oral.susp 15 Ml PO PRN AFTMEALHC PRN Ferrous Sulfate 325 Mg Tablet 325 Mg PO BID D3-50 (Cholecalciferol (Vitamin D3)) 50,000 Unit Capsule 50,000 Unit PO WEEKLY Benztropine Mesylate 0.5 Mg Tablet 0.5 Mg PO BID Ascorbic Acid 500 Mg Tablet 500 Mg PO BID Acyclovir 200 Mg Capsule 200 Mg PO BID Senna (Sennosides) 8.6 Mg Tablet 8.6 Mg PO DAILY Paxil (Paroxetine Hcl) 20 Mg Tablet 20 Mg PO DAILY Omeprazole 20 Mg Capsule.dr 20 Mg PO DAILY Metoprolol Tartrate 25 Mg Tablet 12.5 Mg PO BID Lisinopril 10 Mg Tablet 10 Mg PO BID Isosorbide Mononitrate Er (Isosorbide Mononitrate) 30 Mg Tab.er.24h 30 Mg PO DAILY Celebrex (Celecoxib) 200 Mg Capsule 200 Mg PO DAILY Atorvastatin Calcium 10 Mg Tablet 10 Mg PO DAILY Aspirin 81 Mg Tab.chew 81 Mg PO DAILY Risperdal (Risperidone) 1 Mg Tablet 2 Mg PO TID NICODERM CQ 14mg (Nicotine) 1 Each Patch.td24 1 Patch TD DAILY Remove patch QHS if pt unable to sleep Depakote Er (Divalproex Sodium) 500 Mg Tab.er.24h 1,000 Mg PO DAILY Clonazepam 1 Mg Tablet 1 Mg PO TID Tylenol (Acetaminophen) 325 Mg Tablet 650 Mg PO PRN Q6HRS PRN Max Acetaminophen dose is 4000mg in 24 hours from all sources for Adults I have reviewed the current psychotropics carefully including drug interactions. Risk benefit ratio favors no change other than as noted in my dictated progress note. Diagnosis: Problems: (1) Schizoaffective disorder (2) Anxiety disorder (3) Impulse control disorder (4) Schizoaffective disorder, chronic condition with acute exacerbation (5) Psychosis, atypical BESSIE SOLORIO MD February 23, 2019 22:22
[2019-02-24 06:12] VITALS: BP 136/84
[2019-02-24] MEDS: LACTOBACILLUS RHAMNOSUS GG 1 CAPSULE. PO SCH ×2 (08:30→19:42)
[2019-02-24] MEDS: SENNOSIDES 8.6 MG TABLET PO SCH (08:31)
[2019-02-24] MEDS: PANTOPRAZOLE 40 MG TABLET. PO SCH (08:31)
[2019-02-24] MEDS: ASPIRIN 81 MG TAB.CHEW PO SCH (08:31)
[2019-02-24] MEDS: DIVALPROEX ER 500 MG TAB.ER.24H PO SCH (08:31)
[2019-02-24] MEDS: FERROUS SULFATE 325 MG TABLET. PO SCH ×2 (08:31→19:43)
[2019-02-24] MEDS: CEFDINIR 300 MG CAPSULE PO SCH ×2 (08:31→19:42)
[2019-02-24] MEDS: risperiDONE 2 MG TABLET. PO SCH ×3 (08:31→19:42)
[2019-02-24] MEDS: CELECOXIB 100 MG CAPSULE PO SCH (08:31)
[2019-02-24] MEDS: BENZTROPINE MESYLATE 0.5 MG TABLET PO SCH ×2 (08:31→19:42)
[2019-02-24] MEDS: ASCORBIC ACID 500 MG TABLET PO SCH ×2 (08:31→19:42)
[2019-02-24] MEDS: ATORVASTATIN CALCIUM 10 MG TABLET. PO SCH (08:31)
[2019-02-24] MEDS: LISINOPRIL 5 MG TABLET. PO SCH (08:32)
[2019-02-24] MEDS: METOPROLOL TART IMMED RELEASE 25 MG TABLET PO SCH ×2 (08:32→19:43)
[2019-02-24] MEDS: ACYCLOVIR 200 MG CAPSULE PO SCH ×2 (08:32→19:43)
[2019-02-24] MEDS: NICOTINE 14MG PATCH. TD SCH (08:33)
[2019-02-24] MEDS: clonazePAM 1 MG TABLET PO SCH ×3 (08:38→19:44)
--- NOTE | 2019-02-24 09:27 | NUR ---
WEEKLY ACTIVITY THERAPY NOTE Date of Admission: 02/02/2019 Date of AT Assessment: 02/06/2019 Goal aimed: to increase relaxation techniques and leisure engagement Initial goal: Pt. will participate in at least one Activity Therapy group per day. Weekly progress towards goal: achieved Group participation level: moderate Weekly highlights: singing karaoke with a microphone on Thursday Behaviors observed: in and out of groups at times, laughs to self occasionally, holding hands with a male patients, grandiose statements, occasional sexual comment remarks Plan: no change to goal Beneficial adaptations: invites, reminders, enjoys art programs
--- NOTE | 2019-02-24 09:47 | NUR ---
WEEKLY NOTE: Pt is eating 100% of meals and averaging 6 hours of sleep. Pt has a UTI and has been started on Cefdinir. Pt has been more agitated, exhibits hysterical laughter without provocation, delusional and appears to have a flight of ideas. Pt will continue Risperdal and is on Prolixen, which she does not wish to be on. Pt moderately participates in group and has grandiose thoughts. Pt will look towards discharge the middle to the latter part of next week.
--- NOTE | 2019-02-24 12:05 | NUR ---
Pt met with SW to ask about discharge. SW explained that in light of pt current behaviors and having what appears to be a pretty bad UTI, the team would like to have pt discharge towards the middle of the week. Pt was hopeful to discharge on Thursday. Pt was also hopeful to be taken off the Prolixen. SW informed pt that it was relayed to the psychiatrist and she would also have to discuss this with him. SW will follow up with pt facility and guardian with updates.
[2019-02-24 15:40] VITALS: BP 137/82
--- NOTE | 2019-02-24 15:41 | NUR ---
FATOUMATA left a message for pt guardian, Lindsay, to contact FATOUMATA when possible re: update on pt bx and discharge plans.
--- NOTE | 2019-02-24 18:11 | NUR ---
Pt located in dayroom during med pass and assessment. Pt calm, compliant, interactive and was participating in group.
--- NOTE | 2019-02-24 22:20 | PDOC ---
Exam Note: Timothy Note: Please also refer to the separate dictated note~for this date of service dictated separately.~Patient seen individually. Discussed the patient with Nursing staff reviewed the chart.~Reviewed interim history and current functioning. Reviewed vital signs,~Labs/ Radiology~and current medications noted below. Continue current treatment with the changes noted in the dictated addendum note Assessment: Vital Signs: Vital Signs Date Time Temp Pulse Resp B/P (MAP) Pulse Ox O2 Delivery O2 Flow Rate FiO2 02/24/19 19:43 72 137/82 02/24/19 15:40 98.4 18 94 02/22/19 16:27 Room Air I&O Intake and Output 02/24/19 07:00 Intake Total 1260 ml Balance 1260 ml Intake Oral 1260 ml # Voids 1 Current Medications: Meds: Current Medications Acetaminophen (Tylenol) 650 mg PRN Q6HRS PRN PO PAIN / TEMP; Start 02/02/19 at 20:00; Stop 02/02/19 at 20:19; Status DC Multi-Ingredient Ointment (Analgesic [place]) 1 dusty PRN QID PRN TP MUSCLE PAIN Last administered on 02/17/19at 12:15; Start 02/02/19 at 20:00 Al Hydroxide/Mg Hydroxide (Mylanta Plus Xs) 15 ml PRN AFTMEALHC PRN PO DYSPEPSIA; Start 02/02/19 at 20:00 Magnesium Hydroxide (Milk Of Magnesia) 2,400 mg PRN QHS PRN PO CONSTIPATION; Start 02/02/19 at 20:00 Nicotine (Nicoderm Cq 14mg) 1 patch DAILY TD Last administered on 02/24/19at 08:33; Start 02/03/19 at 09:00 Acetaminophen (Tylenol) 650 mg PRN Q6HRS PRN PO PAIN / TEMP Last administered on 02/21/19at 13:24; Start 02/02/19 at 20:00 Non-Formulary Medication (Nicotine (NICODERM CQ 14mg)) 1 patch DAILY TD ; Start 02/03/19 at 09:00; Stop 02/03/19 at 09:00; Status DC Clonazepam (KlonoPIN) 1 mg TID PO Last administered on 02/24/19at 19:44; Start 02/03/19 at 09:00 Divalproex Sodium (Depakote Er) 1,000 mg DAILY PO Last administered on 02/24/19 08:31; Start 02/03/19 at 09:00 Risperidone (RisperDAL) 2 mg TID PO Last administered on 02/24/19 19:42; Start 02/03/19 at 09:00 Isosorbide Mononitrate (Imdur) 30 mg DAILY PO Last administered on 02/10/19 08:02; Start 02/03/19 at 09:00; Stop 02/10/19 at 16:31; Status DC Lisinopril (Prinivil) 10 mg BID PO Last administered on 02/10/19 07:59; Start 02/03/19 at 09:00; Stop 02/10/19 at 19:21; Status DC Metoprolol Tartrate (Lopressor) 12.5 mg BID PO Last administered on 02/24/19 19:43; Start 02/03/19 at 09:00 Acyclovir (Zovirax) 200 mg BID PO Last administered on 02/24/19 19:43; Start 02/03/19 at 09:00 Aspirin (Children'S Aspirin) 81 mg DAILYWBKFT PO Last administered on 02/24/19 08:31; Start 02/03/19 at 08:00 Atorvastatin Calcium (Lipitor) 10 mg DAILY PO Last administered on 02/24/19 08:31; Start 02/03/19 at 09:00 Celecoxib (CeleBREX) 200 mg DAILY PO Last administered on 02/24/19 08:31; Start 02/03/19 at 09:00 Pantoprazole Sodium (Protonix) 40 mg DAILYAC PO Last administered on 02/24/19 08:31; Start 02/03/19 at 07:30 Paroxetine HCl (Paxil) 20 mg DAILY PO Last administered on 02/04/19 07:52; Start 02/03/19 at 09:00; Stop 02/04/19 at 18:28; Status DC Sennosides (Senna) 8.6 mg DAILY PO Last administered on 02/24/19 08:31; Start 02/03/19 at 09:00 Vitamin D (Vitamin D3) 50,000 unit WEEKLY PO Last administered on 02/19/19 08:28; Start 02/05/19 at 09:00 Ferrous Sulfate (Feosol) 325 mg BID PO Last administered on 02/24/19 19:43; Start 02/04/19 at 21:00 Ascorbic Acid (Vitamin C) 500 mg BID PO Last administered on 02/24/19 19:42; Start 02/04/19 at 21:00 Paroxetine HCl (Paxil) 15 mg DAILY PO Last administered on 02/06/19 08:15; Start 02/05/19 at 09:00; Stop 02/06/19 at 23:50; Status DC Paroxetine HCl (Paxil) 10 mg DAILY PO Last administered on 02/17/19 07:59; Start 02/07/19 at 09:00; Stop 02/17/19 at 11:26; Status DC Benztropine Mesylate (Cogentin) 1 mg DAILY PO ; Start 02/10/19 at 09:00; Stop 02/10/19 at 09:00; Status DC Benztropine Mesylate (Cogentin) 1 mg BID PO Last administered on 02/12/19at 19:47; Start 02/10/19 at 09:00; Stop 02/13/19 at 08:01; Status DC Sodium Chloride 500 ml @ 0 mls/hr 1X ONCE IV Last administered on 02/10/19at 15:38; Start 02/10/19 at 15:45; Stop 02/10/19 at 15:46; Status DC Lisinopril (Prinivil) 5 mg DAILY PO Last administered on 02/24/19 08:32; Start 02/11/19 at 09:00 Benztropine Mesylate (Cogentin) 0.5 mg BID PO Last administered on 02/24/19 19:42; Start 02/14/19 at 21:00 Fluphenazine HCl (Prolixin) 1.25 mg BID PO Last administered on 02/20/19 19:50; Start 02/16/19 at 21:00; Stop 02/21/19 at 02:42; Status DC Fluphenazine HCl (Prolixin) 2.5 mg BID PO Last administered on 02/24/19 19:42; Start 02/21/19 at 09:00 Cefdinir (Omnicef) 300 mg BID PO Last administered on 02/24/19 19:42; Start 02/22/19 at 21:00 Lactobacillus Rhamnosus (Culturelle) 1 cap BID PO Last administered on at 19:42; Start 02/22/19 at 21:00 Active Scripts Active Reported Fluphenazine Hcl 5 Mg Tablet 2.5 Mg PO BID Culturelle (Lactobacillus Rhamnosus Gg) 1 Each Capsule 1 Each PO BID Cefdinir 300 Mg Capsule 300 Mg PO BID Analgesic [place] (Methyl Salicylate/Menthol) 28 Gm Oint...g. 1 Dusty TP PRN QID PRN Milk Of Magnesia (Magnesium Hydroxide) 400 Mg/5 Ml Oral.susp 2,400 Mg PO PRN QHS PRN Mag-Al Plus Xs Suspension (Mag Hydrox/Al Hydrox/Simeth) 30 Ml Oral.susp 15 Ml PO PRN AFTMEALHC PRN Ferrous Sulfate 325 Mg Tablet 325 Mg PO BID D3-50 (Cholecalciferol (Vitamin D3)) 50,000 Unit Capsule 50,000 Unit PO WEEKLY Benztropine Mesylate 0.5 Mg Tablet 0.5 Mg PO BID Ascorbic Acid 500 Mg Tablet 500 Mg PO BID Acyclovir 200 Mg Capsule 200 Mg PO BID Senna (Sennosides) 8.6 Mg Tablet 8.6 Mg PO DAILY Paxil (Paroxetine Hcl) 20 Mg Tablet 20 Mg PO DAILY Omeprazole 20 Mg Capsule.dr 20 Mg PO DAILY Metoprolol Tartrate 25 Mg Tablet 12.5 Mg PO BID Lisinopril 10 Mg Tablet 10 Mg PO BID Isosorbide Mononitrate Er (Isosorbide Mononitrate) 30 Mg Tab.er.24h 30 Mg PO DAILY Celebrex (Celecoxib) 200 Mg Capsule 200 Mg PO DAILY Atorvastatin Calcium 10 Mg Tablet 10 Mg PO DAILY Aspirin 81 Mg Tab.chew 81 Mg PO DAILY Risperdal (Risperidone) 1 Mg Tablet 2 Mg PO TID NICODERM CQ 14mg (Nicotine) 1 Each Patch.td24 1 Patch TD DAILY Remove patch QHS if pt unable to sleep Depakote Er (Divalproex Sodium) 500 Mg Tab.er.24h 1,000 Mg PO DAILY Clonazepam 1 Mg Tablet 1 Mg PO TID Tylenol (Acetaminophen) 325 Mg Tablet 650 Mg PO PRN Q6HRS PRN Max Acetaminophen dose is 4000mg in 24 hours from all sources for Adults I have reviewed the current psychotropics carefully including drug interactions. Risk benefit ratio favors no change other than as noted in my dictated progress note. Diagnosis: Problems: (1) Schizoaffective disorder (2) Anxiety disorder (3) Impulse control disorder (4) Schizoaffective disorder, chronic condition with acute exacerbation (5) Psychosis, atypical BESSIE SOLORIO MD February 24, 2019 22:20
--- NOTE | 2019-02-24 23:39 | NUR ---
Pt sitting up in day room, interacting w/staff and peers, watching television at shift change. Pt A/O, calm, social. Pt cooperative with assessment and compliant with medications after being assured repeatedly that she in fact was given her Klonopin.
[2019-02-25 05:16] VITALS: BP 138/97
--- NOTE | 2019-02-25 09:00 | NUR ---
Nursing Note: Pt on the patio during morning med pass. Calm, compliant w/ meds taken whole w/o argument , cooperative w/ assess.
[2019-02-25] MEDS: LACTOBACILLUS RHAMNOSUS GG 1 CAPSULE. PO SCH ×2 (09:38→20:00)
[2019-02-25] MEDS: risperiDONE 2 MG TABLET. PO SCH ×3 (09:38→20:00)
[2019-02-25] MEDS: ATORVASTATIN CALCIUM 10 MG TABLET. PO SCH (09:38)
[2019-02-25] MEDS: LISINOPRIL 5 MG TABLET. PO SCH (09:39)
[2019-02-25] MEDS: PANTOPRAZOLE 40 MG TABLET. PO SCH (09:39)
[2019-02-25] MEDS: BENZTROPINE MESYLATE 0.5 MG TABLET PO SCH ×2 (09:41→19:59)
[2019-02-25] MEDS: CELECOXIB 100 MG CAPSULE PO SCH (09:41)
[2019-02-25] MEDS: CEFDINIR 300 MG CAPSULE PO SCH ×2 (09:41→20:00)
[2019-02-25] MEDS: DIVALPROEX ER 500 MG TAB.ER.24H PO SCH (09:41)
[2019-02-25] MEDS: METOPROLOL TART IMMED RELEASE 25 MG TABLET PO SCH ×2 (09:41→20:00)
[2019-02-25] MEDS: ASCORBIC ACID 500 MG TABLET PO SCH ×2 (09:42→20:00)
[2019-02-25] MEDS: ASPIRIN 81 MG TAB.CHEW PO SCH (09:42)
[2019-02-25] MEDS: FERROUS SULFATE 325 MG TABLET. PO SCH ×2 (09:42→20:00)
[2019-02-25] MEDS: SENNOSIDES 8.6 MG TABLET PO SCH (09:42)
[2019-02-25] MEDS: clonazePAM 1 MG TABLET PO SCH ×3 (09:44→20:01)
[2019-02-25] MEDS: CHOLECALCIFEROL (VITAMIN D3) 50,000 UNIT CAPSULE PO SCH (09:44)
[2019-02-25] MEDS: ACYCLOVIR 200 MG CAPSULE PO SCH ×2 (09:45→20:01)
[2019-02-25] MEDS: NICOTINE 14MG PATCH. TD SCH (12:52)
[2019-02-25] MEDS: ACETAMINOPHEN 325 MG TABLET PO PRN (14:09)
[2019-02-25 16:18] VITALS: BP 150/73
--- NOTE | 2019-02-25 22:22 | NUR ---
Pt sitting quietly in the day room at shift change. Pt irritable and snarky this evening. Pt cooperative with assessment and compliant with medications administered whole.
--- NOTE | 2019-02-25 22:28 | PDOC ---
Exam Note: Timothy Note: Please also refer to the separate dictated note~for this date of service dictated separately.~Patient seen individually. Discussed the patient with Nursing staff reviewed the chart.~Reviewed interim history and current functioning. Reviewed vital signs,~Labs/ Radiology~and current medications noted below. Continue current treatment with the changes noted in the dictated addendum note Assessment: Vital Signs: Vital Signs Date Time Temp Pulse Resp B/P (MAP) Pulse Ox O2 Delivery O2 Flow Rate FiO2 02/25/19 20:00 85 150/73 02/25/19 16:18 97.3 20 95 Room Air I&O Intake and Output 02/25/19 06:59 Intake Total 960 ml Balance 960 ml Intake Oral 960 ml # Voids 1 Current Medications: Meds: Current Medications Acetaminophen (Tylenol) 650 mg PRN Q6HRS PRN PO PAIN / TEMP; Start 02/02/19 at 20:00; Stop 02/02/19 at 20:19; Status DC Multi-Ingredient Ointment (Analgesic [place]) 1 dusty PRN QID PRN TP MUSCLE PAIN L ast administered on 02/17/19at 12:15; Start 02/02/19 at 20:00 Al Hydroxide/Mg Hydroxide (Mylanta Plus Xs) 15 ml PRN AFTMEALHC PRN PO DYSPEPSIA; Start 02/02/19 at 20:00 Magnesium Hydroxide (Milk Of Magnesia) 2,400 mg PRN QHS PRN PO CONSTIPATION; Start 02/02/19 at 20:00 Nicotine (Nicoderm Cq 14mg) 1 patch DAILY TD Last administered on 02/25/19at 12:52; Start 02/03/19 at 09:00 Acetaminophen (Tylenol) 650 mg PRN Q6HRS PRN PO PAIN / TEMP Last administered on 02/25/19at 14:09; Start 02/02/19 at 20:00 Non-Formulary Medication (Nicotine (NICODERM CQ 14mg)) 1 patch DAILY TD ; Start 02/03/19 at 09:00; Stop 02/03/19 at 09:00; Status DC Clonazepam (KlonoPIN) 1 mg TID PO Last administered on 02/25/19at 20:01; Start 02/03/19 at 09:00 Divalproex Sodium (Depakote Er) 1,000 mg DAILY PO Last administered on 02/25/19 09:41; Start 02/03/19 at 09:00 Risperidone (RisperDAL) 2 mg TID PO Last administered on 02/25/19 20:00; Start 02/03/19 at 09:00 Isosorbide Mononitrate (Imdur) 30 mg DAILY PO Last administered on 02/10/19 08:02; Start 02/03/19 at 09:00; Stop 02/10/19 at 16:31; Status DC Lisinopril (Prinivil) 10 mg BID PO Last administered on 02/10/19 07:59; Start 02/03/19 at 09:00; Stop 02/10/19 at 19:21; Status DC Metoprolol Tartrate (Lopressor) 12.5 mg BID PO Last administered on 02/25/19 20:00; Start 02/03/19 at 09:00 Acyclovir (Zovirax) 200 mg BID PO Last administered on 02/25/19 20:01; Start 02/03/19 at 09:00 Aspirin (Children'S Aspirin) 81 mg DAILYWBKFT PO Last administered on 02/25/19 09:42; Start 02/03/19 at 08:00 Atorvastatin Calcium (Lipitor) 10 mg DAILY PO Last administered on 02/25/19 09:38; Start 02/03/19 at 09:00 Celecoxib (CeleBREX) 200 mg DAILY PO Last administered on 02/25/19 09:41; Start 02/03/19 at 09:00 Pantoprazole Sodium (Protonix) 40 mg DAILYAC PO Last administered on 02/25/19 09:39; Start 02/03/19 at 07:30 Paroxetine HCl (Paxil) 20 mg DAILY PO Last administered on 02/04/19 07:52; Start 02/03/19 at 09:00; Stop 02/04/19 at 18:28; Status DC Sennosides (Senna) 8.6 mg DAILY PO Last administered on 02/25/19 09:42; Start 02/03/19 at 09:00 Vitamin D (Vitamin D3) 50,000 unit WEEKLY PO Last administered on 02/25/19 09:44; Start 02/05/19 at 09:00 Ferrous Sulfate (Feosol) 325 mg BID PO Last administered on 02/25/19 20:00; Start 02/04/19 at 21:00 Ascorbic Acid (Vitamin C) 500 mg BID PO Last administered on 02/25/19at 20:00; Start 02/04/19 at 21:00 Paroxetine HCl (Paxil) 15 mg DAILY PO Last administered on 02/06/19at 08:15; Start 02/05/19 at 09:00; Stop 02/06/19 at 23:50; Status DC Paroxetine HCl (Paxil) 10 mg DAILY PO Last administered on 02/17/19at 07:59; Start 02/07/19 at 09:00; Stop 02/17/19 at 11:26; Status DC Benztropine Mesylate (Cogentin) 1 mg DAILY PO ; Start 02/10/19 at 09:00; Stop 02/10/19 at 09:00; Status DC Benztropine Mesylate (Cogentin) 1 mg BID PO Last administered on 02/12/19at 19:47; Start 02/10/19 at 09:00; Stop 02/13/19 at 08:01; Status DC Sodium Chloride 500 ml @ 0 mls/hr 1X ONCE IV Last administered on 02/10/19at 15:38; Start 02/10/19 at 15:45; Stop 02/10/19 at 15:46; Status DC Lisinopril (Prinivil) 5 mg DAILY PO Last administered on 02/25/19at 09:39; Start 02/11/19 at 09:00 Benztropine Mesylate (Cogentin) 0.5 mg BID PO Last administered on 02/25/19at 19:59; Start 02/14/19 at 21:00 Fluphenazine HCl (Prolixin) 1.25 mg BID PO Last administered on 02/20/19at 19:50; Start 02/16/19 at 21:00; Stop 02/21/19 at 02:42; Status DC Fluphenazine HCl (Prolixin) 2.5 mg BID PO Last administered on 02/25/19 20:00; Start 02/21/19 at 09:00 Cefdinir (Omnicef) 300 mg BID PO Last administered on 02/25/19 20:00; Start 02/22/19 at 21:00 Lactobacillus Rhamnosus (Culturelle) 1 cap BID PO Last administered on 02/25/19at 20:00; Start 02/22/19 at 21:00 Active Scripts Active Reported Fluphenazine Hcl 5 Mg Tablet 2.5 Mg PO BID Culturelle (Lactobacillus Rhamnosus Gg) 1 Each Capsule 1 Each PO BID Cefdinir 300 Mg Capsule 300 Mg PO BID Analgesic [place] (Methyl Salicylate/Menthol) 28 Gm Oint...g. 1 Dusty TP PRN QID PRN Milk Of Magnesia (Magnesium Hydroxide) 400 Mg/5 Ml Oral.susp 2,400 Mg PO PRN QHS PRN Mag-Al Plus Xs Suspension (Mag Hydrox/Al Hydrox/Simeth) 30 Ml Oral.susp 15 Ml PO PRN AFTMEALHC PRN Ferrous Sulfate 325 Mg Tablet 325 Mg PO BID D3-50 (Cholecalciferol (Vitamin D3)) 50,000 Unit Capsule 50,000 Unit PO WEEKLY Benztropine Mesylate 0.5 Mg Tablet 0.5 Mg PO BID Ascorbic Acid 500 Mg Tablet 500 Mg PO BID Acyclovir 200 Mg Capsule 200 Mg PO BID Senna (Sennosides) 8.6 Mg Tablet 8.6 Mg PO DAILY Paxil (Paroxetine Hcl) 20 Mg Tablet 20 Mg PO DAILY Omeprazole 20 Mg Capsule.dr 20 Mg PO DAILY Metoprolol Tartrate 25 Mg Tablet 12.5 Mg PO BID Lisinopril 10 Mg Tablet 10 Mg PO BID Isosorbide Mononitrate Er (Isosorbide Mononitrate) 30 Mg Tab.er.24h 30 Mg PO DAILY Celebrex (Celecoxib) 200 Mg Capsule 200 Mg PO DAILY Atorvastatin Calcium 10 Mg Tablet 10 Mg PO DAILY Aspirin 81 Mg Tab.chew 81 Mg PO DAILY Risperdal (Risperidone) 1 Mg Tablet 2 Mg PO TID NICODERM CQ 14mg (Nicotine) 1 Each Patch.td24 1 Patch TD DAILY Remove patch QHS if pt unable to sleep Depakote Er (Divalproex Sodium) 500 Mg Tab.er.24h 1,000 Mg PO DAILY Clonazepam 1 Mg Tablet 1 Mg PO TID Tylenol (Acetaminophen) 325 Mg Tablet 650 Mg PO PRN Q6HRS PRN Max Acetaminophen dose is 4000mg in 24 hours from all sources for Adults I have reviewed the current psychotropics carefully including drug interactions. Risk benefit ratio favors no change other than as noted in my dictated progress note. Diagnosis: Problems: (1) Schizoaffective disorder (2) Anxiety disorder (3) Impulse control disorder (4) Schizoaffective disorder, chronic condition with acute exacerbation (5) Psychosis, atypical BESSIE SOLORIO MD February 25, 2019 22:28
--- NOTE | 2019-02-25 23:31 | PN ---
DATE: 02/23/2019 PSYCHIATRIC PROGRESS NOTE This late entry 02/23/2019 covers elements not covered in my initial note. SUBJECTIVE: I met with the patient in the evening of 02/23/2019. The patient slept 4-1/2 hours previous night. She remains somewhat delusional, grandiose at times, refusing medications. She does have a UTI and hopefully treating this would help some of her mood lability, ongoing psychosis, deena, and grandiosity. No CV, , pulmonary, eye system symptoms on review. MENTAL STATUS EXAM: Oriented to herself and situation. Speech coherent, rapid at times. Abstraction fair, computation impaired, language function intact, attention span short. Mood and affect labile. LABORATORY DATA: Reviewed. IMPRESSION: Unchanged from initial note. PLAN: No change from initial note. Maintain Risperdal, Depakote, Klonopin, Cogentin, and Prolixin is currently 2.5 at b.i.d. BESSIE SOLORIO MD DR: MELODIE/nancy JOB#: [id number] / [id number]
--- NOTE | 2019-02-25 23:34 | PN ---
DATE: 02/24/2019 PSYCHIATRIC PROGRESS NOTE This is a late entry 02/24/2019 covers elements not covered in my initial note. SUBJECTIVE: I met with the patient in the evening of 02/24/2019 and staffed at a treatment team meeting with the entire team in the morning. The patient slept 6-1/2 hours previous night. She has been delusional, psychotic, refusing medications stating she is and the medications will hurt her baby. She has been irritable, aggressive pacing, delusional. She slept 6-1/2 hours previous night, 6 hours average. Appetite 100%. Activity therapy shared a treatment team meeting, her participation was moderate. She remains grandiose, holding hands with another male patient, laughing inappropriately at times. REVIEW OF SYSTEMS: No CV, , pulmonary, eye, ENT system symptoms on review. Reliability varies. MENTAL STATUS EXAM: Oriented to herself and situation. Speech is coherent, rapid at times. Abstraction fair, computation impaired, language function intact, attention span short. Mood and affect remains labile, anxious, grandiose and delusional. LABORATORY DATA: Reviewed. IMPRESSION: Schizoaffective disorder, bipolar type, mixed with psychotic features; urinary tract infection; anxiety disorder, unspecified. Rest unchanged. PLAN: Continue current psychotropics including Prolixin 2.5 mg b.i.d. The patient believed Prolixin is making her more psychotic. I have discussed this with her at length, explained that her UTI is worsening her symptoms, should improve with treating the UTI that we are at the maximum dosage of Risperdal 2 mg t.i.d. and despite that, she was psychotic and that is the reason we added Prolixin and we will monitor it carefully and Depakote is therapeutic with the blood level. MAN Yaron SOLORIO MD DR: MELODIE/nancy JOB#: [id number] / [id number]
[2019-02-26 06:28] VITALS: BP 113/78
[2019-02-26] MEDS: NICOTINE 14MG PATCH. TD SCH (08:33)
[2019-02-26] MEDS: PANTOPRAZOLE 40 MG TABLET. PO SCH (08:34)
[2019-02-26] MEDS: CELECOXIB 100 MG CAPSULE PO SCH (08:34)
[2019-02-26] MEDS: LACTOBACILLUS RHAMNOSUS GG 1 CAPSULE. PO SCH ×2 (08:34→19:56)
[2019-02-26] MEDS: BENZTROPINE MESYLATE 0.5 MG TABLET PO SCH ×2 (08:34→19:56)
[2019-02-26] MEDS: ASPIRIN 81 MG TAB.CHEW PO SCH (08:34)
[2019-02-26] MEDS: DIVALPROEX ER 500 MG TAB.ER.24H PO SCH (08:34)
[2019-02-26] MEDS: FERROUS SULFATE 325 MG TABLET. PO SCH ×2 (08:35→19:56)
[2019-02-26] MEDS: ATORVASTATIN CALCIUM 10 MG TABLET. PO SCH (08:36)
[2019-02-26] MEDS: clonazePAM 1 MG TABLET PO SCH ×3 (08:36→19:56)
[2019-02-26] MEDS: METOPROLOL TART IMMED RELEASE 25 MG TABLET PO SCH ×2 (08:36→19:56)
[2019-02-26] MEDS: CEFDINIR 300 MG CAPSULE PO SCH ×2 (08:37→19:56)
[2019-02-26] MEDS: risperiDONE 2 MG TABLET. PO SCH ×3 (08:38→19:56)
[2019-02-26] MEDS: SENNOSIDES 8.6 MG TABLET PO SCH (08:38)
[2019-02-26] MEDS: LISINOPRIL 5 MG TABLET. PO SCH (08:38)
[2019-02-26] MEDS: ACYCLOVIR 200 MG CAPSULE PO SCH ×2 (08:38→19:58)
[2019-02-26] MEDS: ASCORBIC ACID 500 MG TABLET PO SCH ×2 (08:38→19:55)
--- NOTE | 2019-02-26 13:36 | NUR ---
Pt is calm, cooperative, compliant, and calm. No agitation, hallucinations, or delusions noted. Pt is compliant with medication and assessment. She is withdrawn to her room.
[2019-02-26 16:42] VITALS: BP 125/69
--- NOTE | 2019-02-26 21:52 | NUR ---
Pt sitting quietly in the day room at shift change. Pt calm and cooperative, interactive with staff and peers. Pt cooperative with assessment and compliant with medications administered whole. Pt denies thoughts of harm to self or others when asked.
--- NOTE | 2019-02-26 22:30 | PDOC ---
Exam Note: Timothy Note: Please also refer to the separate dictated note~for this date of service dictated separately.~Patient seen individually. Discussed the patient with Nursing staff reviewed the chart.~Reviewed interim history and current functioning. Reviewed vital signs,~Labs/ Radiology~and current medications noted below. Continue current treatment with the changes noted in the dictated addendum note Assessment: Vital Signs: Vital Signs Date Time Temp Pulse Resp B/P (MAP) Pulse Ox O2 Delivery O2 Flow Rate FiO2 02/26/19 19:56 88 125/69 02/26/19 16:42 98.0 20 97 02/25/19 16:18 Room Air I&O Intake and Output 02/26/19 06:59 Intake Total 960 ml Balance 960 ml Intake Oral 960 ml # Bowel Movements 1 Current Medications: Meds: Current Medications Acetaminophen (Tylenol) 650 mg PRN Q6HRS PRN PO PAIN / TEMP; Start 02/02/19 at 20:00; Stop 02/02/19 at 20:19; Status DC Multi-Ingredient Ointment (Analgesic [place]) 1 dusty PRN QID PRN TP MUSCLE PAIN Last administered on 02/17/19at 12:15; Start 02/02/19 at 20:00 Al Hydroxide/Mg Hydroxide (Mylanta Plus Xs) 15 ml PRN AFTMEALHC PRN PO DYSPEPSIA; Start 02/02/19 at 20:00 Magnesium Hydroxide (Milk Of Magnesia) 2,400 mg PRN QHS PRN PO CONSTIPATION; Start 02/02/19 at 20:00 Nicotine (Nicoderm Cq 14mg) 1 patch DAILY TD Last administered on 02/26/19at 08:33; Start 02/03/19 at 09:00 Acetaminophen (Tylenol) 650 mg PRN Q6HRS PRN PO PAIN / TEMP Last administered on 02/25/19at 14:09; Start 02/02/19 at 20:00 Non-Formulary Medication (Nicotine (NICODERM CQ 14mg)) 1 patch DAILY TD ; Start 02/03/19 at 09:00; Stop 02/03/19 at 09:00; Status DC Clonazepam (KlonoPIN) 1 mg TID PO Last administered on 02/26/19at 19:56; Start 02/03/19 at 09:00 Divalproex Sodium (Depakote Er) 1,000 mg DAILY PO Last administered on 02/26/19 08:34; Start 02/03/19 at 09:00 Risperidone (RisperDAL) 2 mg TID PO Last administered on 02/26/19 19:56; Start 02/03/19 at 09:00 Isosorbide Mononitrate (Imdur) 30 mg DAILY PO Last administered on 02/10/19 08:02; Start 02/03/19 at 09:00; Stop 02/10/19 at 16:31; Status DC Lisinopril (Prinivil) 10 mg BID PO Last administered on 02/10/19 07:59; Start 02/03/19 at 09:00; Stop 02/10/19 at 19:21; Status DC Metoprolol Tartrate (Lopressor) 12.5 mg BID PO Last administered on 02/26/19 19:56; Start 02/03/19 at 09:00 Acyclovir (Zovirax) 200 mg BID PO Last administered on 02/26/19 19:58; Start 02/03/19 at 09:00 Aspirin (Children'S Aspirin) 81 mg DAILYWBKFT PO Last administered on 02/26/19 08:34; Start 02/03/19 at 08:00 Atorvastatin Calcium (Lipitor) 10 mg DAILY PO Last administered on 02/26/19 08:36; Start 02/03/19 at 09:00 Celecoxib (CeleBREX) 200 mg DAILY PO Last administered on 02/26/19 08:34; Start 02/03/19 at 09:00 Pantoprazole Sodium (Protonix) 40 mg DAILYAC PO Last administered on 02/26/19 08:34; Start 02/03/19 at 07:30 Paroxetine HCl (Paxil) 20 mg DAILY PO Last administered on 02/04/19 07:52; Start 02/03/19 at 09:00; Stop 02/04/19 at 18:28; Status DC Sennosides (Senna) 8.6 mg DAILY PO Last administered on 02/26/19 08:38; Start 02/03/19 at 09:00 Vitamin D (Vitamin D3) 50,000 unit WEEKLY PO Last administered on 02/25/19 09 :44; Start 02/05/19 at 09:00 Ferrous Sulfate (Feosol) 325 mg BID PO Last administered on 02/26/19 19:56; Start 02/04/19 at 21:00 Ascorbic Acid (Vitamin C) 500 mg BID PO Last administered on 02/26/19 19:55; Start 02/04/19 at 21:00 Paroxetine HCl (Paxil) 15 mg DAILY PO Last administered on 02/06/19at 08:15; Start 02/05/19 at 09:00; Stop 02/06/19 at 23:50; Status DC Paroxetine HCl (Paxil) 10 mg DAILY PO Last administered on 02/17/19at 07:59; Start 02/07/19 at 09:00; Stop 02/17/19 at 11:26; Status DC Benztropine Mesylate (Cogentin) 1 mg DAILY PO ; Start 02/10/19 at 09:00; Stop 02/10/19 at 09:00; Status DC Benztropine Mesylate (Cogentin) 1 mg BID PO Last administered on 02/12/19at 19:47; Start 02/10/19 at 09:00; Stop 02/13/19 at 08:01; Status DC Sodium Chloride 500 ml @ 0 mls/hr 1X ONCE IV Last administered on 02/10/19at 15:38; Start 02/10/19 at 15:45; Stop 02/10/19 at 15:46; Status DC Lisinopril (Prinivil) 5 mg DAILY PO Last administered on 02/26/19at 08:38; Start 02/11/19 at 09:00 Benztropine Mesylate (Cogentin) 0.5 mg BID PO Last administered on 02/26/19 19:56; Start 02/14/19 at 21:00 Fluphenazine HCl (Prolixin) 1.25 mg BID PO Last administered on 02/20/19at 19:50; Start 02/16/19 at 21:00; Stop 02/21/19 at 02:42; Status DC Fluphenazine HCl (Prolixin) 2.5 mg BID PO Last administered on 02/26/19 19:55; Start 02/21/19 at 09:00 Cefdinir (Omnicef) 300 mg BID PO Last administered on 02/26/19 19:56; Start 02/22/19 at 21:00 Lactobacillus Rhamnosus (Culturelle) 1 cap BID PO Last administered on 02/26/19at 19:56; Start 02/22/19 at 21:00 Active Scripts Active Reported Fluphenazine Hcl 5 Mg Tablet 2.5 Mg PO BID Culturelle (Lactobacillus Rhamnosus Gg) 1 Each Capsule 1 Each PO BID Cefdinir 300 Mg Capsule 300 Mg PO BID Analgesic [place] (Methyl Salicylate/Menthol) 28 Gm Oint...g. 1 Dusty TP PRN QID PRN Milk Of Magnesia (Magnesium Hydroxide) 400 Mg/5 Ml Oral.susp 2,400 Mg PO PRN QHS PRN Mag-Al Plus Xs Suspension (Mag Hydrox/Al Hydrox/Simeth) 30 Ml Oral.susp 15 Ml PO PRN AFTMEALHC PRN Ferrous Sulfate 325 Mg Tablet 325 Mg PO BID D3-50 (Cholecalciferol (Vitamin D3)) 50,000 Unit Capsule 50,000 Unit PO WEEKLY Benztropine Mesylate 0.5 Mg Tablet 0.5 Mg PO BID Ascorbic Acid 500 Mg Tablet 500 Mg PO BID Acyclovir 200 Mg Capsule 200 Mg PO BID Senna (Sennosides) 8.6 Mg Tablet 8.6 Mg PO DAILY Paxil (Paroxetine Hcl) 20 Mg Tablet 20 Mg PO DAILY Omeprazole 20 Mg Capsule.dr 20 Mg PO DAILY Metoprolol Tartrate 25 Mg Tablet 12.5 Mg PO BID Lisinopril 10 Mg Tablet 10 Mg PO BID Isosorbide Mononitrate Er (Isosorbide Mononitrate) 30 Mg Tab.er.24h 30 Mg PO DAILY Celebrex (Celecoxib) 200 Mg Capsule 200 Mg PO DAILY Atorvastatin Calcium 10 Mg Tablet 10 Mg PO DAILY Aspirin 81 Mg Tab.chew 81 Mg PO DAILY Risperdal (Risperidone) 1 Mg Tablet 2 Mg PO TID NICODERM CQ 14mg (Nicotine) 1 Each Patch.td24 1 Patch TD DAILY Remove patch QHS if pt unable to sleep Depakote Er (Divalproex Sodium) 500 Mg Tab.er.24h 1,000 Mg PO DAILY Clonazepam 1 Mg Tablet 1 Mg PO TID Tylenol (Acetaminophen) 325 Mg Tablet 650 Mg PO PRN Q6HRS PRN Max Acetaminophen dose is 4000mg in 24 hours from all sources for Adults I have reviewed the current psychotropics carefully including drug interactions. Risk benefit ratio favors no change other than as noted in my dictated progress note. Diagnosis: Problems: (1) Schizoaffective disorder (2) Anxiety disorder (3) Impulse control disorder (4) Schizoaffective disorder, chronic condition with acute exacerbation (5) Psychosis, atypical BESSIE SOLORIO MD Feb 26, 2019 22:30
[2019-02-27 06:03] VITALS: BP 123/78
[2019-02-27] MEDS: LISINOPRIL 5 MG TABLET. PO SCH (08:14)
[2019-02-27] MEDS: NICOTINE 14MG PATCH. TD SCH (08:14)
[2019-02-27] MEDS: ATORVASTATIN CALCIUM 10 MG TABLET. PO SCH (08:15)
[2019-02-27] MEDS: BENZTROPINE MESYLATE 0.5 MG TABLET PO SCH ×2 (08:15→20:39)
[2019-02-27] MEDS: risperiDONE 2 MG TABLET. PO SCH ×3 (08:15→20:41)
[2019-02-27] MEDS: SENNOSIDES 8.6 MG TABLET PO SCH (08:15)
[2019-02-27] MEDS: FERROUS SULFATE 325 MG TABLET. PO SCH ×2 (08:15→20:40)
[2019-02-27] MEDS: ASCORBIC ACID 500 MG TABLET PO SCH ×2 (08:15→20:40)
[2019-02-27] MEDS: CELECOXIB 100 MG CAPSULE PO SCH (08:16)
[2019-02-27] MEDS: DIVALPROEX ER 500 MG TAB.ER.24H PO SCH (08:16)
[2019-02-27] MEDS: PANTOPRAZOLE 40 MG TABLET. PO SCH (08:16)
[2019-02-27] MEDS: LACTOBACILLUS RHAMNOSUS GG 1 CAPSULE. PO SCH ×2 (08:16→20:40)
[2019-02-27] MEDS: ASPIRIN 81 MG TAB.CHEW PO SCH (08:16)
[2019-02-27] MEDS: METOPROLOL TART IMMED RELEASE 25 MG TABLET PO SCH ×2 (08:16→20:41)
[2019-02-27] MEDS: CEFDINIR 300 MG CAPSULE PO SCH ×2 (08:17→20:40)
[2019-02-27] MEDS: ACYCLOVIR 200 MG CAPSULE PO SCH ×2 (08:17→20:42)
[2019-02-27] MEDS: clonazePAM 1 MG TABLET PO SCH ×3 (08:19→20:40)
[2019-02-27] MEDS: ACETAMINOPHEN 325 MG TABLET PO PRN (10:47)
[2019-02-27 16:12] VITALS: BP 141/85
--- NOTE | 2019-02-27 17:30 | NUR ---
Patient has been disorganized and grandiose but cooperative with medications in the morning. She did have some attention seeking behavior during the day. She has not shown signs of delusions or inappropriate behaviors so far today. Will continue to monitor and report to oncoming shift.
--- NOTE | 2019-02-27 22:34 | PDOC ---
Exam Note: Timothy Note: Please also refer to the separate dictated note~for this date of service dictated separately.~Patient seen individually. Discussed the patient with Nursing staff reviewed the chart.~Reviewed interim history and current functioning. Reviewed vital signs,~Labs/ Radiology~and current medications noted below. Continue current treatment with the changes noted in the dictated addendum note Assessment: Vital Signs: Vital Signs Date Time Temp Pulse Resp B/P (MAP) Pulse Ox O2 Delivery O2 Flow Rate FiO2 02/27/19 20:41 74 141/85 02/27/19 16:12 98.0 16 97 02/25/19 16:18 Room Air I&O Intake and Output 02/27/19 07:00 Intake Total 1320 ml Balance 1320 ml Intake Oral 1320 ml Current Medications: Meds: Current Medications Acetaminophen (Tylenol) 650 mg PRN Q6HRS PRN PO PAIN / TEMP; Start 02/02/19 at 20:00; Stop 02/02/19 at 20:19; Status DC Multi-Ingredient Ointment (Analgesic [place]) 1 dusty PRN QID PRN TP MUSCLE PAIN Last administered on 02/17/19at 12:15; Start 02/02/19 at 20:00 Al Hydroxide/Mg Hydroxide (Mylanta Plus Xs) 15 ml PRN AFTMEALHC PRN PO DYSPEPSIA; Start 02/02/19 at 20:00 Magnesium Hydroxide (Milk Of Magnesia) 2,400 mg PRN QHS PRN PO CONSTIPATION; Start 02/02/19 at 20:00 Nicotine (Nicoderm Cq 14mg) 1 patch DAILY TD Last administered on 02/27/19at 08:14; Start 02/03/19 at 09:00 Acetaminophen (Tylenol) 650 mg PRN Q6HRS PRN PO PAIN / TEMP Last administered on 02/27/19at 10:47; Start 02/02/19 at 20:00 Non-Formulary Medication (Nicotine (NICODERM CQ 14mg)) 1 patch DAILY TD ; Start 02/03/19 at 09:00; Stop 02/03/19 at 09:00; Status DC Clonazepam (KlonoPIN) 1 mg TID PO Last administered on 02/27/19at 20:40; Start 02/03/19 at 09:00 Divalproex Sodium (Depakote Er) 1,000 mg DAILY PO Last administered on 02/27/19 08:16; Start 02/03/19 at 09:00 Risperidone (RisperDAL) 2 mg TID PO Last administered on 02/27/19 20:41; Start 02/03/19 at 09:00 Isosorbide Mononitrate (Imdur) 30 mg DAILY PO Last administered on 02/10/19 08:02; Start 02/03/19 at 09:00; Stop 02/10/19 at 16:31; Status DC Lisinopril (Prinivil) 10 mg BID PO Last administered on 02/10/19 07:59; Start 02/03/19 at 09:00; Stop 02/10/19 at 19:21; Status DC Metoprolol Tartrate (Lopressor) 12.5 mg BID PO Last administered on 02/27/19 20:41; Start 02/03/19 at 09:00 Acyclovir (Zovirax) 200 mg BID PO Last administered on 02/27/19 20:42; Start 02/03/19 at 09:00 Aspirin (Children'S Aspirin) 81 mg DAILYWBKFT PO Last administered on 02/27/19 08:16; Start 02/03/19 at 08:00 Atorvastatin Calcium (Lipitor) 10 mg DAILY PO Last administered on 02/27/19 08:15; Start 02/03/19 at 09:00 Celecoxib (CeleBREX) 200 mg DAILY PO Last administered on 02/27/19 08:16; Start 02/03/19 at 09:00 Pantoprazole Sodium (Protonix) 40 mg DAILYAC PO Last administered on 02/27/19 08:16; Start 02/03/19 at 07:30 Paroxetine HCl (Paxil) 20 mg DAILY PO Last administered on 02/04/19 07:52; Start 02/03/19 at 09:00; Stop 02/04/19 at 18:28; Status DC Sennosides (Senna) 8.6 mg DAILY PO Last administered on 02/27/19 08:15; Start 02/03/19 at 09:00 Vitamin D (Vitamin D3) 50,000 unit WEEKLY PO Last administered on 02/25/19at 09:44; Start 02/05/19 at 09:00 Ferrous Sulfate (Feosol) 325 mg BID PO Last administered on 02/27/19 20:40; Start 02/04/19 at 21:00 Ascorbic Acid (Vitamin C) 500 mg BID PO Last administered on 02/27/19 20:40; Start 02/04/19 at 21:00 Paroxetine HCl (Paxil) 15 mg DAILY PO Last administered on 02/06/19 08:15; Start 02/05/19 at 09:00; Stop 02/06/19 at 23:50; Status DC Paroxetine HCl (Paxil) 10 mg DAILY PO Last administered on 02/17/19at 07:59; Start 02/07/19 at 09:00; Stop 02/17/19 at 11:26; Status DC Benztropine Mesylate (Cogentin) 1 mg DAILY PO ; Start 02/10/19 at 09:00; Stop 02/10/19 at 09:00; Status DC Benztropine Mesylate (Cogentin) 1 mg BID PO Last administered on 02/12/19at 19:47; Start 02/10/19 at 09:00; Stop 02/13/19 at 08:01; Status DC Sodium Chloride 500 ml @ 0 mls/hr 1X ONCE IV Last administered on 02/10/19at 15:38; Start 02/10/19 at 15:45; Stop 02/10/19 at 15:46; Status DC Lisinopril (Prinivil) 5 mg DAILY PO Last administered on 02/27/19 08:14; Start 02/11/19 at 09:00 Benztropine Mesylate (Cogentin) 0.5 mg BID PO Last administered on 02/27/19 08:15; Start 02/14/19 at 21:00; Stop 02/27/19 at 20:31; Status DC Fluphenazine HCl (Prolixin) 1.25 mg BID PO Last administered on 02/20/19 19:50; Start 02/16/19 at 21:00; Stop 02/21/19 at 02:42; Status DC Fluphenazine HCl (Prolixin) 2.5 mg BID PO Last administered on 02/27/19 20:42; Start 02/21/19 at 09:00 Cefdinir (Omnicef) 300 mg BID PO Last administered on 6/2/19at 20:40; Start 02/22/19 at 21:00 Lactobacillus Rhamnosus (Culturelle) 1 cap BID PO Last administered on 02/27/19at 20:40; Start 02/22/19 at 21:00 Benztropine Mesylate (Cogentin) 1 mg BID PO Last administered on 02/27/19at 20:39; Start 02/27/19 at 21:00 Active Scripts Active Reported Fluphenazine Hcl 5 Mg Tablet 2.5 Mg PO BID Culturelle (Lactobacillus Rhamnosus Gg) 1 Each Capsule 1 Each PO BID Cefdinir 300 Mg Capsule 300 Mg PO BID Analgesic [place] (Methyl Salicylate/Menthol) 28 Gm Oint...g. 1 Dusty TP PRN QID PRN Milk Of Magnesia (Magnesium Hydroxide) 400 Mg/5 Ml Oral.susp 2,400 Mg PO PRN QHS PRN Mag-Al Plus Xs Suspension (Mag Hydrox/Al Hydrox/Simeth) 30 Ml Oral.susp 15 Ml PO PRN AFTMEALHC PRN Ferrous Sulfate 325 Mg Tablet 325 Mg PO BID D3-50 (Cholecalciferol (Vitamin D3)) 50,000 Unit Capsule 50,000 Unit PO WEEKLY Benztropine Mesylate 0.5 Mg Tablet 0.5 Mg PO BID Ascorbic Acid 500 Mg Tablet 500 Mg PO BID Acyclovir 200 Mg Capsule 200 Mg PO BID Senna (Sennosides) 8.6 Mg Tablet 8.6 Mg PO DAILY Paxil (Paroxetine Hcl) 20 Mg Tablet 20 Mg PO DAILY Omeprazole 20 Mg Capsule.dr 20 Mg PO DAILY Metoprolol Tartrate 25 Mg Tablet 12.5 Mg PO BID Lisinopril 10 Mg Tablet 10 Mg PO BID Isosorbide Mononitrate Er (Isosorbide Mononitrate) 30 Mg Tab.er.24h 30 Mg PO DAILY Celebrex (Celecoxib) 200 Mg Capsule 200 Mg PO DAILY Atorvastatin Calcium 10 Mg Tablet 10 Mg PO DAILY Aspirin 81 Mg Tab.chew 81 Mg PO DAILY Risperdal (Risperidone) 1 Mg Tablet 2 Mg PO TID NICODERM CQ 14mg (Nicotine) 1 Each Patch.td24 1 Patch TD DAILY Remove patch QHS if pt unable to sleep Depakote Er (Divalproex Sodium) 500 Mg Tab.er.24h 1,000 Mg PO DAILY Clonazepam 1 Mg Tablet 1 Mg PO TID Tylenol (Acetaminophen) 325 Mg Tablet 650 Mg PO PRN Q6HRS PRN Max Acetaminophen dose is 4000mg in 24 hours from all sources for Adults I have reviewed the current psychotropics carefully including drug interactions. Risk benefit ratio favors no change other than as noted in my dictated progress note. Diagnosis: Problems: (1) Schizoaffective disorder (2) Anxiety disorder (3) Impulse control disorder (4) Schizoaffective disorder, chronic condition with acute exacerbation (5) Psychosis, atypical BESSIE SOLORIO MD Feb 27, 2019 22:34
--- NOTE | 2019-02-28 | NUR ---
Nursing Note Pt asleep during assessment, awakens to voice. Cooperative and compliant.
--- NOTE | 2019-02-28 06:06 | PN ---
DATE: 02/25/2019 PSYCHIATRIC PROGRESS NOTE This late entry 02/25/2019 covers elements not covered in my initial note. SUBJECTIVE: I met with the patient in the evening. The patient slept 6-1/4 hours previous night. She was quite resistive to meds the previous night, took them during the day on 02/25/2019. Complains of some hand tremors, which were evident as I met with her. She has been attending groups, remains paranoid, labile at times. REVIEW OF SYSTEMS: No CV, , pulmonary, eye system symptoms on review. Other than tremors, vague somatic symptoms. MENTAL STATUS EXAM: Oriented to herself and situation. Speech is coherent, rapid at times. Abstraction fair, computation impaired, language function intact. Mood and affect remain somewhat labile. LABORATORY DATA: Reviewed. IMPRESSION: Unchanged from initial note. PLAN: No change from initial note. MAN Yaron SOLORIO MD DR: MELODIE/nancy JOB#: [id number] / [id number]
[2019-02-28 06:17] VITALS: BP 130/80
--- NOTE | 2019-02-28 06:56 | PN ---
DATE: 02/26/2019 PSYCHIATRIC PROGRESS NOTE This late entry 02/26/2019 covers elements not covered in my initial note. SUBJECTIVE: I met with the patient in the evening. The patient slept 5-1/2 hours previous night. She has been calm, compliant, interactive. Complains of being tired. REVIEW OF SYSTEMS: No CV, , pulmonary, eye system symptoms on review. She has vague somatic symptoms. MENTAL STATUS EXAM: Oriented reasonably. Speech is coherent, less pressured. Abstraction fair, computation impaired, language function intact, attention span short. Mood and affect remain somewhat anxious, grandiose, labile at times, but better than before. LABORATORY DATA: Reviewed. IMPRESSION: Unchanged from initial note including urinary tract infection, schizoaffective disorder, bipolar type, mixed with psychotic features. PLAN: Continue current psychotropics. May need to increase Cogentin if tremors persist and since we have increased the Prolixin, I might reduce the Risperdal, maintain Depakote level therapeutic, Klonopin 1 mg t.i.d. MAN Yaron SOLORIO MD DR: MELODIE/nancy JOB#: [id number] / [id number]
--- NOTE | 2019-02-28 07:40 | PN ---
DATE: 02/27/2019 PSYCHIATRIC PROGRESS NOTE This note covers elements not covered in my initial note 02/27/2019. SUBJECTIVE: I met with the patient in the evening. The patient slept 7-1/2 hours previous night. She has had some tremors and we are going to increase the Cogentin from 0.5 b.i.d. to 1 mg b.i.d. REVIEW OF SYSTEMS: No CV, , pulmonary, eye system symptoms on review. MENTAL STATUS EXAM: Oriented to herself and situation. Speech coherent, less pressured. Abstraction fair, computation impaired, language function intact, attention span short. She remains intermittently psychotic, but improved. LABORATORY DATA: Reviewed. IMPRESSION: Schizoaffective disorder, bipolar type, mixed with psychotic features; urinary tract infection; anxiety disorder, unspecified. PLAN: Increase Cogentin as above, maintain Depakote, Risperdal, Klonopin along with Prolixin for now. BESSIE SOLORIO MD DR: MELODIE/nancy JOB#: [id number] / [id number]
[2019-02-28 07:43] LABS: ALBUMIN/GLOBULIN RATIO 0.8 (1.0-1.7); ALK PHOS 69 U/L (46-116); ALT (SGPT) 12 U/L (14-59); ANION GAP 7 (6-14); AST (SGOT) < 5 U/L (15-37); BLOOD UREA NITROGEN 14 mg/dL (7-20); BUN/CREATININE RATIO 20 (6-20); CALCIUM 9.1 mg/dL (8.5-10.1); CARBON DIOXIDE 31 mmol/L (21-32); CHLORIDE 98 mmol/L (98-107); CREATININE 0.7 mg/dL (0.6-1.0); GFR 87.5; GLUCOSE 76 mg/dL (70-99); POTASSIUM 4.3 mmol/L (3.5-5.1); SODIUM 136 mmol/L (136-145); TOTAL BILIRUBIN 0.2 mg/dL (0.2-1.0); TOTAL PROTEIN 6.6 g/dL (6.4-8.2)
[2019-02-28 07:44] LABS: BASO % 1 % (0-3); EOS # 0.3 x10^3/uL (0.0-0.7); EOS % 4 % (0-3); HEMATOCRIT 34.3 % (36.0-47.0); HEMOGLOBIN 11.3 g/dL (12.0-15.5); LYMPH # 2.1 x10^3/uL (1.0-4.8); LYMPH % 26 % (24-48); MEAN CORPUSCULAR HEMOGLOBIN 28 pg (25-35); MEAN CORPUSCULAR HGB CONC 33 g/dL (31-37); MEAN CORPUSCULAR VOLUME 86 fL (79-100); MONO # 0.9 x10^3/uL (0.0-1.1); MONO % 11 % (0-9); NEUT # 4.8 x10^3uL (1.8-7.7); NEUT % 59 % (31-73); PLATELET COUNT 253 x10^3/uL (140-400); RED CELL DISTRIBUTION WIDTH 19.4 % (11.5-14.5); WHITE BLOOD COUNT 8.1 x10^3/uL (4.0-11.0)
[2019-02-28] MEDS: NICOTINE 14MG PATCH. TD SCH (07:58)
[2019-02-28] MEDS: clonazePAM 1 MG TABLET PO SCH ×3 (07:58→19:57)
[2019-02-28] MEDS: ATORVASTATIN CALCIUM 10 MG TABLET. PO SCH (07:59)
[2019-02-28] MEDS: METOPROLOL TART IMMED RELEASE 25 MG TABLET PO SCH ×2 (07:59→19:55)
[2019-02-28] MEDS: PANTOPRAZOLE 40 MG TABLET. PO SCH (07:59)
[2019-02-28] MEDS: CEFDINIR 300 MG CAPSULE PO SCH ×2 (07:59→19:53)
[2019-02-28] MEDS: DIVALPROEX ER 500 MG TAB.ER.24H PO SCH (08:00)
[2019-02-28] MEDS: BENZTROPINE MESYLATE 0.5 MG TABLET PO SCH ×2 (08:00→19:54)
[2019-02-28] MEDS: CELECOXIB 100 MG CAPSULE PO SCH (08:00)
[2019-02-28] MEDS: ASCORBIC ACID 500 MG TABLET PO SCH ×2 (08:00→19:54)
[2019-02-28] MEDS: SENNOSIDES 8.6 MG TABLET PO SCH (08:00)
[2019-02-28] MEDS: ASPIRIN 81 MG TAB.CHEW PO SCH (08:00)
[2019-02-28] MEDS: FERROUS SULFATE 325 MG TABLET. PO SCH ×2 (08:01→19:53)
[2019-02-28] MEDS: LISINOPRIL 5 MG TABLET. PO SCH (08:01)
[2019-02-28] MEDS: risperiDONE 2 MG TABLET. PO SCH ×3 (08:01→19:54)
[2019-02-28] MEDS: LACTOBACILLUS RHAMNOSUS GG 1 CAPSULE. PO SCH ×2 (08:01→19:53)
[2019-02-28] MEDS: ACYCLOVIR 200 MG CAPSULE PO SCH ×2 (08:02→19:55)
[2019-02-28] MEDS: ACETAMINOPHEN 325 MG TABLET PO PRN (09:41)
[2019-02-28 15:58] VITALS: BP 109/76
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
--- NOTE | 2019-02-28 17:22 | NUR ---
[facility] Social Work Discharge Planning Form Patient Name MARIELOS CAO Admit Date: 02/02/19 DISCHARGE PLAN Discharge Destination: Pt to return to [facility] [address] Assessment: N/A Level II Assessment: N/A Transportation: Pt facility to pick pt up; transport time will be determined in the AM. Special Instructions/Notes: Please fax all discharge orders and medication list to the facility fax listed below. DISCHARGE TO FACILITY Facility: [facility] [address] Address: [address]; [place] [address] Contact Name: FATOUMATA Mckeon: Contact Name: Please ask for nurse caring for pt upon admission PCP: Dr. Merida sees pt at the facility
--- NOTE | 2019-02-28 18:00 | NUR ---
Patient spent the morning after breakfast withdrawn to room. She was in the day room after lunch, disorganized but compliant and participating in group activities. She was compliant with medications and assessments. Will continue to monitor and report to oncoming shift.
--- NOTE | 2019-02-28 22:19 | PDOC ---
Exam Note: Timothy Note: Please also refer to the separate dictated note~for this date of service dictated separately.~Patient seen individually. Discussed the patient with Nursing staff reviewed the chart.~Reviewed interim history and current functioning. Reviewed vital signs,~Labs/ Radiology~and current medications noted below. Continue current treatment with the changes noted in the dictated addendum note Assessment: Vital Signs: Vital Signs Date Time Temp Pulse Resp B/P (MAP) Pulse Ox O2 Delivery O2 Flow Rate FiO2 02/28/19 19:55 87 109/76 02/28/19 15:58 98.5 18 93 02/25/19 16:18 Room Air I&O Intake and Output 02/28/19 07:00 Intake Total 1200 ml Balance 1200 ml Intake Oral 1200 ml Labs: Laboratory Tests Test 02/28/19 06:22 White Blood Count 8.1 x10^3/uL (4.0-11.0) Red Blood Count 4.00 x10^6/uL (3.50-5.40) Hemoglobin 11.3 g/dL (12.0-15.5) L Hematocrit 34.3 % (36.0-47.0) L Mean Corpuscular Volume 86 fL (79-100) Mean Corpuscular Hemoglobin 28 pg (25-35) Mean Corpuscular Hemoglobin Concent 33 g/dL (31-37) Red Cell Distribution Width 19.4 % (11.5-14.5) H Platelet Count 253 x10^3/uL (140-400) Neutrophils (%) (Auto) 59 % (31-73) Lymphocytes (%) (Auto) 26 % (24-48) Monocytes (%) (Auto) 11 % (0-9) H Eosinophils (%) (Auto) 4 % (0-3) H Basophils (%) (Auto) 1 % (0-3) Neutrophils # (Auto) 4.8 x10^3uL (1.8-7.7) Lymphocytes # (Auto) 2.1 x10^3/uL (1.0-4.8) Monocytes # (Auto) 0.9 x10^3/uL (0.0-1.1) Eosinophils # (Auto) 0.3 x10^3/uL (0.0-0.7) Basophils # (Auto) 0.0 x10^3/uL (0.0-0.2) Sodium Level 136 mmol/L (136-145) Potassium Level 4.3 mmol/L (3.5-5.1) Chloride Level 98 mmol/L (98-107) Carbon Dioxide Level 31 mmol/L (21-32) Anion Gap 7 (6-14) Blood Urea Nitrogen 14 mg/dL (7-20) Creatinine 0.7 mg/dL (0.6-1.0) Estimated GFR (Cockcroft-Gault) 87.5 BUN/Creatinine Ratio 20 (6-20) Glucose Level 76 mg/dL (70-99) Calcium Level 9.1 mg/dL (8.5-10.1) Total Bilirubin 0.2 mg/dL (0.2-1.0) Aspartate Amino Transferase (AST) < 5 U/L (15-37) L Alanine Aminotransferase (ALT) 12 U/L (14-59) L Alkaline Phosphatase 69 U/L (46-116) Total Protein 6.6 g/dL (6.4-8.2) Albumin 3.0 g/dL (3.4-5.0) L Albumin/Globulin Ratio 0.8 (1.0-1.7) L Current Medications: Meds: Current Medications Acetaminophen (Tylenol) 650 mg PRN Q6HRS PRN PO PAIN / TEMP; Start 02/02/19 at 20:00; Stop 02/02/19 at 20:19; Status DC Multi-Ingredient Ointment (Analgesic [place]) 1 dusty PRN QID PRN TP MUSCLE PAIN Last administered on 02/17/19at 12:15; Start 02/02/19 at 20:00 Al Hydroxide/Mg Hydroxide (Mylanta Plus Xs) 15 ml PRN AFTMEALHC PRN PO DYSPEPSIA; Start 02/02/19 at 20:00 Magnesium Hydroxide (Milk Of Magnesia) 2,400 mg PRN QHS PRN PO CONSTIPATION; Start 02/02/19 at 20:00 Nicotine (Nicoderm Cq 14mg) 1 patch DAILY TD Last administered on 02/28/19at 07:58; Start 02/03/19 at 09:00 Acetaminophen (Tylenol) 650 mg PRN Q6HRS PRN PO PAIN / TEMP Last administered on 02/28/19at 09:41; Start 02/02/19 at 20:00 Non-Formulary Medication (Nicotine (NICODERM CQ 14mg)) 1 patch DAILY TD ; Start 02/03/19 at 09:00; Stop 02/03/19 at 09:00; Status DC Clonazepam (KlonoPIN) 1 mg TID PO Last administered on 02/28/19 19:57; Start 02/03/19 at 09:00 Divalproex Sodium (Depakote Er) 1,000 mg DAILY PO Last administered on 02/28/19 08:00; Start 02/03/19 at 09:00 Risperidone (RisperDAL) 2 mg TID PO Last administered on 02/28/19 19:54; Start 02/03/19 at 09:00 Isosorbide Mononitrate (Imdur) 30 mg DAILY PO Last administered on 02/10/19 08:02; Start 02/03/19 at 09:00; Stop 02/10/19 at 16:31; Status DC Lisinopril (Prinivil) 10 mg BID PO Last administered on 02/10/19 07:59; Start 02/03/19 at 09:00; Stop 02/10/19 at 19:21; Status DC Metoprolol Tartrate (Lopressor) 12.5 mg BID PO Last administered on 02/28/19 19:55; Start 02/03/19 at 09:00 Acyclovir (Zovirax) 200 mg BID PO Last administered on 02/28/19 19:55; Start 02/03/19 at 09:00 Aspirin (Children'S Aspirin) 81 mg DAILYWBKFT PO Last administered on 02/28/19 08:00; Start 02/03/19 at 08:00 Atorvastatin Calcium (Lipitor) 10 mg DAILY PO Last administered on 02/28/19 07:59; Start 02/03/19 at 09:00 Celecoxib (CeleBREX) 200 mg DAILY PO Last administered on 02/28/19 08:00; Start 02/03/19 at 09:00 Pantoprazole Sodium (Protonix) 40 mg DAILYAC PO Last administered on 02/28/19 07:59; Start 02/03/19 at 07:30 Paroxetine HCl (Paxil) 20 mg DAILY PO Last administered on 02/04/19 07:52; Start 02/03/19 at 09:00; Stop 02/04/19 at 18:28; Status DC Sennosides (Senna) 8.6 mg DAILY PO Last administered on 02/28/19 08:00; Start 02/03/19 at 09:00 Vitamin D (Vitamin D3) 50,000 unit WEEKLY PO Last administered on 02/25/19at 09:44; Start 02/05/19 at 09:00 Ferrous Sulfate (Feosol) 325 mg BID PO Last administered on 02/28/19 19:53; Start 02/04/19 at 21:00 Ascorbic Acid (Vitamin C) 500 mg BID PO Last administered on 02/28/19 19:54; Start 02/04/19 at 21:00 Paroxetine HCl (Paxil) 15 mg DAILY PO Last administered on 02/06/19at 08:15; Start 02/05/19 at 09:00; Stop 02/06/19 at 23:50; Status DC Paroxetine HCl (Paxil) 10 mg DAILY PO Last administered on 02/17/19at 07:59; Start 02/07/19 at 09:00; Stop 02/17/19 at 11:26; Status DC Benztropine Mesylate (Cogentin) 1 mg DAILY PO ; Start 02/10/19 at 09:00; Stop 02/10/19 at 09:00; Status DC Benztropine Mesylate (Cogentin) 1 mg BID PO Last administered on 02/12/19at 19:47; Start 02/10/19 at 09:00; Stop 02/13/19 at 08:01; Status DC Sodium Chloride 500 ml @ 0 mls/hr 1X ONCE IV Last administered on 02/10/19at 15:38; Start 02/10/19 at 15:45; Stop 02/10/19 at 15:46; Status DC Lisinopril (Prinivil) 5 mg DAILY PO Last administered on 02/28/19 08:01; Start 02/11/19 at 09:00 Benztropine Mesylate (Cogentin) 0.5 mg BID PO Last administered on 02/27/19 08:15; Start 02/14/19 at 21:00; Stop 02/27/19 at 20:31; Status DC Fluphenazine HCl (Prolixin) 1.25 mg BID PO Last administered on 02/20/19at 19:50; Start 02/16/19 at 21:00; Stop 02/21/19 at 02:42; Status DC Fluphenazine HCl (Prolixin) 2.5 mg BID PO Last administered on 02/28/19 19:53; Start 02/21/19 at 09:00 Cefdinir (Omnicef) 300 mg BID PO Last administered on 02/28/19 19:53; Start 02/22/19 at 21:00 Lactobacillus Rhamnosus (Culturelle) 1 cap BID PO Last administered on 02/28/19 19:53; Start 02/22/19 at 21:00 Benztropine Mesylate (Cogentin) 1 mg BID PO Last administered on 02/28/19 19:54; Start 02/27/19 at 21:00 Active Scripts Active Reported Fluphenazine Hcl 5 Mg Tablet 2.5 Mg PO BID Culturelle (Lactobacillus Rhamnosus Gg) 1 Each Capsule 1 Each PO BID Cefdinir 300 Mg Capsule 300 Mg PO BID Analgesic [place] (Methyl Salicylate/Menthol) 28 Gm Oint...g. 1 Dusty TP PRN QID PRN Milk Of Magnesia (Magnesium Hydroxide) 400 Mg/5 Ml Oral.susp 2,400 Mg PO PRN QHS PRN Mag-Al Plus Xs Suspension (Mag Hydrox/Al Hydrox/Simeth) 30 Ml Oral.susp 15 Ml PO PRN AFTMEALHC PRN Ferrous Sulfate 325 Mg Tablet 325 Mg PO BID D3-50 (Cholecalciferol (Vitamin D3)) 50,000 Unit Capsule 50,000 Unit PO WEEKLY Benztropine Mesylate 0.5 Mg Tablet 0.5 Mg PO BID Ascorbic Acid 500 Mg Tablet 500 Mg PO BID Acyclovir 200 Mg Capsule 200 Mg PO BID Senna (Sennosides) 8.6 Mg Tablet 8.6 Mg PO DAILY Paxil (Paroxetine Hcl) 20 Mg Tablet 20 Mg PO DAILY Omeprazole 20 Mg Capsule.dr 20 Mg PO DAILY Metoprolol Tartrate 25 Mg Tablet 12.5 Mg PO BID Lisinopril 10 Mg Tablet 10 Mg PO BID Isosorbide Mononitrate Er (Isosorbide Mononitrate) 30 Mg Tab.er.24h 30 Mg PO DAILY Celebrex (Celecoxib) 200 Mg Capsule 200 Mg PO DAILY Atorvastatin Calcium 10 Mg Tablet 10 Mg PO DAILY Aspirin 81 Mg Tab.chew 81 Mg PO DAILY Risperdal (Risperidone) 1 Mg Tablet 2 Mg PO TID NICODERM CQ 14mg (Nicotine) 1 Each Patch.td24 1 Patch TD DAILY Remove patch QHS if pt unable to sleep Depakote Er (Divalproex Sodium) 500 Mg Tab.er.24h 1,000 Mg PO DAILY Clonazepam 1 Mg Tablet 1 Mg PO TID Tylenol (Acetaminophen) 325 Mg Tablet 650 Mg PO PRN Q6HRS PRN Max Acetaminophen dose is 4000mg in 24 hours from all sources for Adults I have reviewed the current psychotropics carefully including drug interactions. Risk benefit ratio favors no change other than as noted in my dictated progress note. Diagnosis: Problems: (1) Schizoaffective disorder (2) Anxiety disorder (3) Impulse control disorder (4) Schizoaffective disorder, chronic condition with acute exacerbation (5) Psychosis, atypical BESSIE SOLORIO MD Feb 28, 2019 22:18
--- NOTE | 2019-02-28 23:23 | NUR ---
Nursing note Pt tells staff that she wants them out of her room, that she is going to "lose her shit" if they don't get the fuck out of her room. Compliant with meds and assessment.
[2019-03-01 05:40] VITALS: BP 144/81
[2019-03-01] MEDS: NICOTINE 14MG PATCH. TD SCH (07:52)
[2019-03-01 07:53] VITALS: BP 144/81
[2019-03-01] MEDS: METOPROLOL TART IMMED RELEASE 25 MG TABLET PO SCH (07:53)
[2019-03-01] MEDS: LISINOPRIL 5 MG TABLET. PO SCH (07:53)
[2019-03-01] MEDS: CELECOXIB 100 MG CAPSULE PO SCH (07:54)
[2019-03-01] MEDS: clonazePAM 1 MG TABLET PO SCH (07:54)
[2019-03-01] MEDS: ASCORBIC ACID 500 MG TABLET PO SCH (07:54)
[2019-03-01] MEDS: SENNOSIDES 8.6 MG TABLET PO SCH (07:54)
[2019-03-01] MEDS: ACYCLOVIR 200 MG CAPSULE PO SCH (07:54)
[2019-03-01] MEDS: ASPIRIN 81 MG TAB.CHEW PO SCH (07:55)
[2019-03-01] MEDS: BENZTROPINE MESYLATE 0.5 MG TABLET PO SCH (07:55)
[2019-03-01] MEDS: DIVALPROEX ER 500 MG TAB.ER.24H PO SCH (07:55)
[2019-03-01] MEDS: FERROUS SULFATE 325 MG TABLET. PO SCH (07:55)
[2019-03-01] MEDS: CEFDINIR 300 MG CAPSULE PO SCH (07:55)
[2019-03-01] MEDS: PANTOPRAZOLE 40 MG TABLET. PO SCH (07:56)
[2019-03-01] MEDS: LACTOBACILLUS RHAMNOSUS GG 1 CAPSULE. PO SCH (07:56)
[2019-03-01] MEDS: risperiDONE 2 MG TABLET. PO SCH (07:56)
[2019-03-01] MEDS: ATORVASTATIN CALCIUM 10 MG TABLET. PO SCH (07:56)
--- NOTE | 2019-03-01 12:10 | NUR ---
Patient has been quiet, disorganized, calm, and cooperative this morning. She was compliant with medications and assessments. Will continue to monitor.
--- NOTE | 2019-03-01 12:30 | NUR ---
Tobacco Discharge Note [facility] Tobacco Hotline called with patient prior to discharge, Refused Tobacco cessation medication listed with current medications for discharge. YES Transition Record was faxed to follow-up provider with the following elements: Reason for admission, procedures, tests, principal diagnosis, pending studies, patient instructions, 20/04 contact information for unit, phone number to obtain pending test results, plan for follow-up care, physician follow-up, advanced directive information, and medication list with dose, duration and instructions. This information was included in the following documents: History and physical, lab results, study results, progress notes, social work planning form, DC instruction form, patient visit summary, and medication reconciliation form. Risperdal taper instructions and order to increase Prolixin copied and placed in discharge paperwork, and discussed during report. Date & time record faxed: 03:30 01 March 2019 Record faxed to: Deshawn on Record discussed with/ report given to: ANDREEA Hernandez at [facility] on
--- NOTE | 2019-03-01 18:10 | PDOC ---
Exam Note: Timothy Note: Please also refer to the separate dictated note~for this date of service dictated separately.~Patient seen individually. Discussed the patient with Nursing staff reviewed the chart.~Reviewed interim history and current functioning. Reviewed vital signs,~Labs/ Radiology~and current medications noted below. Continue current treatment with the changes noted in the dictated addendum note Assessment: Vital Signs: Vital Signs Date Time Temp Pulse Resp B/P (MAP) Pulse Ox O2 Delivery O2 Flow Rate FiO2 03/01/19 07:53 64 144/81 03/01/19 05:40 98.0 20 95 02/25/19 16:18 Room Air I&O Intake and Output 03/01/19 07:00 Intake Total 2440 ml Balance 2440 ml Intake Oral 2440 ml # Voids 1 Current Medications: Meds: Current Medications Acetaminophen (Tylenol) 650 mg PRN Q6HRS PRN PO PAIN / TEMP; Start 02/02/19 at 20:00; Stop 02/02/19 at 20:19; Status DC Multi-Ingredient Ointment (Analgesic [place]) 1 dusty PRN QID PRN TP MUSCLE PAIN Last administered on 02/17/19at 12:15; Start 02/02/19 at 20:00; Stop 03/01/19 at 12:48; Status DC Al Hydroxide/Mg Hydroxide (Mylanta Plus Xs) 15 ml PRN AFTMEALHC PRN PO DYSPEPSIA; Start 02/02/19 at 20:00; Stop 03/01/19 at 12:48; Status DC Magnesium Hydroxide (Milk Of Magnesia) 2,400 mg PRN QHS PRN PO CONSTIPATION; Start 02/02/19 at 20:00; Stop 03/01/19 at 12:48; Status DC Nicotine (Nicoderm Cq 14mg) 1 patch DAILY TD Last administered on 03/01/19at 07:52; Start 02/03/19 at 09:00; Stop 03/01/19 at 12:48; Status DC Acetaminophen (Tylenol) 650 mg PRN Q6HRS PRN PO PAIN / TEMP Last administered on 02/28/19at 09:41; Start 02/02/19 at 20:00; Stop 03/01/19 at 12:48; Status DC Non-Formulary Medication (Nicotine (NICODERM CQ 14mg)) 1 patch DAILY TD ; Start 02/03/19 at 09:00; Stop 02/03/19 at 09:00; Status DC Clonazepam (KlonoPIN) 1 mg TID PO Last administered on 03/01/19at 07:54; Start 02/03/19 at 09:00; Stop 03/01/19 at 12:48; Status DC Divalproex Sodium (Depakote Er) 1,000 mg DAILY PO Last administered on 03/01/19 07:55; Start 02/03/19 at 09:00; Stop 03/01/19 at 12:48; Status DC Risperidone (RisperDAL) 2 mg TID PO Last administered on 03/01/19 07:56; Start 02/03/19 at 09:00; Stop 03/01/19 at 12:48; Status DC Isosorbide Mononitrate (Imdur) 30 mg DAILY PO Last administered on 02/10/19at 08:02; Start 02/03/19 at 09:00; Stop 02/10/19 at 16:31; Status DC Lisinopril (Prinivil) 10 mg BID PO Last administered on 02/10/19at 07:59; Start 02/03/19 at 09:00; Stop 02/10/19 at 19:21; Status DC Metoprolol Tartrate (Lopressor) 12.5 mg BID PO Last administered on 03/01/19 07:53; Start 02/03/19 at 09:00; Stop 03/01/19 at 12:48; Status DC Acyclovir (Zovirax) 200 mg BID PO Last administered on 03/01/19 07:54; Start 02/03/19 at 09:00; Stop 03/01/19 at 12:48; Status DC Aspirin (Children'S Aspirin) 81 mg DAILYWBKFT PO Last administered on 03/01/19 07:55; Start 02/03/19 at 08:00; Stop 03/01/19 at 12:48; Status DC Atorvastatin Calcium (Lipitor) 10 mg DAILY PO Last administered on 03/01/19 07:56; Start 02/03/19 at 09:00; Stop 03/01/19 at 12:48; Status DC Celecoxib (CeleBREX) 200 mg DAILY PO Last administered on 6/4/19at 07:54; Start 02/03/19 at 09:00; Stop 03/01/19 at 12:48; Status DC Pantoprazole Sodium (Protonix) 40 mg DAILYAC PO Last administered on 03/01/19 07:56; Start 02/03/19 at 07:30; Stop 03/01/19 at 12:48; Status DC Paroxetine HCl (Paxil) 20 mg DAILY PO Last administered on 02/04/19 07:52; Start 02/03/19 at 09:00; Stop 02/04/19 at 18:28; Status DC Sennosides (Senna) 8.6 mg DAILY PO Last administered on 03/01/19 07:54; Start 02/03/19 at 09:00; Stop 03/01/19 at 12:48; Status DC Vitamin D (Vitamin D3) 50,000 unit WEEKLY PO Last administered on 02/25/19at 09:44; Start 02/05/19 at 09:00; Stop 03/01/19 at 12:48; Status DC Ferrous Sulfate (Feosol) 325 mg BID PO Last administered on 03/01/19 07:55; Start 02/04/19 at 21:00; Stop 03/01/19 at 12:48; Status DC Ascorbic Acid (Vitamin C) 500 mg BID PO Last administered on 03/01/19 07:54; Start 02/04/19 at 21:00; Stop 03/01/19 at 12:48; Status DC Paroxetine HCl (Paxil) 15 mg DAILY PO Last administered on 02/06/19at 08:15; Start 02/05/19 at 09:00; Stop 02/06/19 at 23:50; Status DC Paroxetine HCl (Paxil) 10 mg DAILY PO Last administered on 02/17/19at 07:59; Start 02/07/19 at 09:00; Stop 02/17/19 at 11:26; Status DC Benztropine Mesylate (Cogentin) 1 mg DAILY PO ; Start 02/10/19 at 09:00; Stop 02/10/19 at 09:00; Status DC Benztropine Mesylate (Cogentin) 1 mg BID PO Last administered on 02/12/19at 19:47; Start 02/10/19 at 09:00; Stop 02/13/19 at 08:01; Status DC Sodium Chloride 500 ml @ 0 mls/hr 1X ONCE IV Last administered on 02/10/19at 15:38; Start 02/10/19 at 15:45; Stop 02/10/19 at 15:46; Status DC Lisinopril (Prinivil) 5 mg DAILY PO Last administered on 03/01/19at 07:53; Start 02/11/19 at 09:00; Stop 03/01/19 at 12:48; Status DC Benztropine Mesylate (Cogentin) 0.5 mg BID PO Last administered on 02/27/19at 08:15; Start 02/14/19 at 21:00; Stop 02/27/19 at 20:31; Status DC Fluphenazine HCl (Prolixin) 1.25 mg BID PO Last administered on 02/20/19at 19:50; Start 02/16/19 at 21:00; Stop 02/21/19 at 02:42; Status DC Fluphenazine HCl (Prolixin) 2.5 mg BID PO Last administered on 03/01/19at 07:53; Start 02/21/19 at 09:00; Stop 03/01/19 at 12:48; Status DC Cefdinir (Omnicef) 300 mg BID PO Last administered on 03/01/19at 07:55; Start 02/22/19 at 21:00; Stop 03/01/19 at 12:00; Status DC Lactobacillus Rhamnosus (Culturelle) 1 cap BID PO Last administered on 03/01/19at 07:56; Start 02/22/19 at 21:00; Stop 03/01/19 at 12:48; Status DC Benztropine Mesylate (Cogentin) 1 mg BID PO Last administered on 03/01/19at 07:55; Start 02/27/19 at 21:00; Stop 03/01/19 at 12:48; Status DC Active Scripts Active Reported Fluphenazine Hcl 5 Mg Tablet 2.5 Mg PO BID Culturelle (Lactobacillus Rhamnosus Gg) 1 Each Capsule 1 Each PO BID Analgesic [place] (Methyl Salicylate/Menthol) 28 Gm Oint...g. 1 Dusty TP PRN QID PRN Milk Of Magnesia (Magnesium Hydroxide) 400 Mg/5 Ml Oral.susp 2,400 Mg PO PRN QHS PRN Mag-Al Plus Xs Suspension (Mag Hydrox/Al Hydrox/Simeth) 30 Ml Oral.susp 15 Ml PO PRN AFTMEALHC PRN Ferrous Sulfate 325 Mg Tablet 325 Mg PO BID D3-50 (Cholecalciferol (Vitamin D3)) 50,000 Unit Capsule 50,000 Unit PO WEEKLY Benztropine Mesylate 0.5 Mg Tablet 1 Mg PO BID Ascorbic Acid 500 Mg Tablet 500 Mg PO BID Acyclovir 200 Mg Capsule 200 Mg PO BID Senna (Sennosides) 8.6 Mg Tablet 8.6 Mg PO DAILY Omeprazole 20 Mg Capsule.dr 20 Mg PO DAILY Metoprolol Tartrate 25 Mg Tablet 12.5 Mg PO BID Lisinopril 10 Mg Tablet 5 Mg PO DAILY Celebrex (Celecoxib) 200 Mg Capsule 200 Mg PO DAILY Atorvastatin Calcium 10 Mg Tablet 10 Mg PO DAILY Aspirin 81 Mg Tab.chew 81 Mg PO DAILY Risperdal (Risperidone) 1 Mg Tablet 2 Mg PO TID NICODERM CQ 14mg (Nicotine) 1 Each Patch.td24 1 Patch TD DAILY Remove patch QHS if pt unable to sleep Depakote Er (Divalproex Sodium) 500 Mg Tab.er.24h 1,000 Mg PO DAILY Clonazepam 1 Mg Tablet 1 Mg PO TID Tylenol (Acetaminophen) 325 Mg Tablet 650 Mg PO PRN Q6HRS PRN Max Acetaminophen dose is 4000mg in 24 hours from all sources for Adults I have reviewed the current psychotropics carefully including drug interactions. Risk benefit ratio favors no change other than as noted in my dictated progress note. Diagnosis: Problems: (1) Psychosis, atypical (2) Schizoaffective disorder, chronic condition with acute exacerbation (3) Impulse control disorder (4) Anxiety disorder BESSIE SOLORIO MD Mar 01, 2019 18:09
--- NOTE | 2019-03-01 21:29 | PN ---
DATE: 02/28/2019 PSYCHIATRIC PROGRESS NOTE This late entry 02/28/2019 covers elements not covered in my initial note. SUBJECTIVE: I met with the patient in the evening and she was sitting in the patio outside. The patient slept 7-1/2 hours previous night. She has been withdrawn, otherwise cooperative, still had some hand tremors, but improved since we have increased the Cogentin to 1 mg b.i.d. REVIEW OF SYSTEMS: No CV, , pulmonary, eye system symptoms on review. MENTAL STATUS EXAM: Reasonably oriented. Speech is coherent, less pressured. Abstraction fair, computation impaired, language function intact, attention span short. She is less psychotic. LABORATORY DATA: Reviewed. IMPRESSION: Unchanged from initial note. PLAN: No change from initial note with possible transition to long term 03/01/2019 and we will leave as part of discharge instructions that Risperdal could be gradually reduced as she has been started on Prolixin. BESSIE SOLORIO MD DR: MELODIE/nancy JOB#: [id number] / [id number]
--- NOTE | 2019-03-02 14:05 | DS ---
DATE OF DISCHARGE: 03/01/2019 DISCHARGE SUMMARY/PSYCHIATRIC PROGRESS NOTE. This note covers elements not covered in my initial note 03/01/2019. REASON FOR ADMISSION: Please refer to the admission history for details. Briefly, the patient is a 53-year-old female referred to us from [facility] on in [place] by her primary care physician on account of worsening symptoms of her schizoaffective disorder, bipolar type. She was delusional, combative with staff, making sexual comments to males about touching their bouts. She is propositioning others. Per long term staff report, she had been noncompliant with her medications. She had failed outpatient psychiatric interventions resulting in this referral. SIGNIFICANT FINDINGS AND CLINICAL COURSE: Following admission, the patient was seen daily individually by myself from a psychiatric standpoint, medical followup with Dr. Rosas. She is extremely grandiose, labile, hypersexual, irritable, labile in her mood at admission. She did have a UTI treated on Omnicef. Adjustments were made in her psychotropics and she seemed to respond to a combination of Prolixin 2.5 mg b.i.d. and remained on Risperdal 2 mg t.i.d., Depakote ER 1000 mg daily, Klonopin 1 mg t.i.d. and Cogentin was adjusted to 1 mg b.i.d. for her extrapyramidal symptoms/tremors REVIEW OF SYSTEMS: Prior to discharge on 03/01/2019, no CV, , pulmonary, eye, ENT system symptoms on review. MENTAL STATUS EXAM: Reasonably oriented. Speech is coherent, rapid, less pressured. Abstraction fair, computation impaired, language function intact, attention span short. Mood and affect improved, much better prior to discharge. No suicidal or homicidal ideation at discharge. CONDITION AT DISCHARGE: Improved. The patient is on 2 antipsychotics at discharge, Risperdal 2 mg t.i.d., which is what she was taking at admission and had failed this and Prolixin 2.5 mg b.i.d. I would suggest starting in about a month from discharge, the Risperdal should be gradually tapered to see if it can be totally eliminated. If psychotic symptoms resurface, the Prolixin can be increased. She was also on Depakote ER 1000 mg at bedtime at discharge with a therapeutic valproic acid level . FINAL DIAGNOSES: Schizoaffective disorder, bipolar type, mixed with psychotic features, in partial remission; anxiety disorder, unspecified; impulse control disorder, unspecified; status post urinary tract infection. Rest unchanged from admission. DISCHARGE MEDICATIONS: Please refer to the MRAD. DISCHARGE INSTRUCTIONS: Outpatient psychiatric medical followup at the long term. Time for discharge day management greater than 30 minutes. BESSIE SOLORIO MD DR: MELODIE/nancy JOB#: [id number] / [id number]
== END 2019-03-01 12:30 | DRG 885 ==
LOC: ER 16:33 → GEROPSY 16:35
PROVIDERS: ADMIT Psychiatry & Neurology Psychiatry; ATTEND Psychiatry & Neurology Psychiatry
DX: F25.0 Schizoaffective disorder, bipolar type (principal); E43 Unspecified severe protein-calorie malnutrition; N39.0 Urinary tract infection, site not specified; I10 Essential (primary) hypertension; F41.9 Anxiety disorder, unspecified; F17.200 Nicotine dependence, unspecified, uncomplicated; D64.9 Anemia, unspecified; F31.60 Bipolar disorder, current episode mixed, unspecified; E78.5 Hyperlipidemia, unspecified; F03.90 Unspecified dementia, unspecified severity, without behavioral disturbance, psychotic disturbance, mood disturbance, and anxiety; F44.81 Dissociative identity disorder; K21.9 Gastro-esophageal reflux disease without esophagitis; F63.9 Impulse disorder, unspecified; Z88.8 Allergy status to other drugs, medicaments and biological substances; Z79.899 Other long term (current) drug therapy; Z87.440 Personal history of urinary (tract) infections; Z91.14 Patient's other noncompliance with medication regimen; Z68.34 Body mass index [BMI] 34.0-34.9, adult
CPT/HCPCS: 36415; 80053; 80061; 80164; 81001; 82306; 82728; 83036; 83540; 83550; 83735; 84436; 84443; 84480; 85007; 85025; 86592; 87086; 87186; 93005; 99407; J7040; 99285-25

== ENCOUNTER 2021-03-14 14:39 | Inpatient (IN) | payer MEDICARE, MEDICAID ==
[~2021-03-14] VITALS: Ht 157.5 cm; Wt 90.0 kg
[~2021-03-14 14:39] MED LIST changes: +ACYC200C84 PO; +ASCO500T3 PO; +ASPI-630 PO; +ATOR10TA60 PO; +BENZ0.5T32 PO; +CEFD300C PO; +CELE200C PO; +CHOL500021 PO; -EZET10TA18 PO; +EZET10TA20 PO; +FERR325T14 PO; +FLUP5TAB13 PO; +ISOS30TA68 PO; +LACT1CAP21 PO; +LISI10TA16 PO; -LISI10TA2 PO; +MAG30ORA2 PO; -MAGN2400 PO; +MAGN24003 PO; +METH28OI2 TP; +METO25TA4 PO; -OLAN5TAB5 PO; +OLAN5TAB99 PO; +OMEP20CA16 PO; +PARO20TA99 PO; +SENN-182 PO; +SIMV20TA18 PO; -SIMV20TA3 PO
[2021-03-14 15:50] LABS: BASO # 0.1 x10^3/uL (0.0-0.2); BASO % 0 % (0-3); EOS # 0.1 x10^3/uL (0.0-0.7); EOS % 1 % (0-3); HEMATOCRIT 42.3 % (36.0-47.0); HEMOGLOBIN 14.1 g/dL (12.0-15.5); LYMPH # 2.5 x10^3/uL (1.0-4.8); LYMPH % 20 % (24-48); MEAN CORPUSCULAR HEMOGLOBIN 31 pg (25-35); MEAN CORPUSCULAR HGB CONC 33 g/dL (31-37); MEAN CORPUSCULAR VOLUME 92 fL (79-100); MONO # 1.3 x10^3/uL (0.0-1.1); MONO % 10 % (0-9); NEUT # 8.7 x10^3uL (1.8-7.7); NEUT % 69 % (31-73); PLATELET COUNT 369 x10^3/uL (140-400); RED BLOOD COUNT 4.59 x10^6/uL (3.50-5.40); RED CELL DISTRIBUTION WIDTH 13.9 % (11.5-14.5); WHITE BLOOD COUNT 12.6 x10^3/uL (4.0-11.0)
[2021-03-14 15:52] LABS: CALCIUM 9.7 mg/dL (8.5-10.1); CREATININE 0.7 mg/dL (0.6-1.0); GFR 86.6; POTASSIUM 5.1 mmol/L (3.5-5.1)
--- NOTE | 2021-03-14 16:48 | PHYS DOC ---
Past History Past Medical History: Dementia, Hypertension, Schizophrenia (RAMIRO FARNSWORTH APRN) Past Surgical History: No Surgical History (RAMIRO FARNSWORTH APRN) Alcohol Use: None Drug Use: None (RAMIRO FARNSWORTH APRN) General Adult EDM: Chief Complaint: MEDICAL CLEARANCE HPI: HPI: Patient is a 56-year-old female who was sent in from [facility] to be evaluated and admitted to [facility]. Staff at [facility] states that patient has been kicking, biting, not cooperating in daily care. Patient is also refusing to take medications and attempting to elope the facility. Patient has a history of schizophrenia, dementia, hypertension (RAMIRO FARNSWORTH APRN) Review of Systems: Review of Systems: ROS unavailable because of patient's mentation (RAMIRO FARNSWORTH APRN) Allergies: Allergies: Allergies Coded Allergies Type Severity Reaction Last Updated Verified haloperidol Allergy Intermediate 12/21/15 Yes (RAMIRO FARNSWORTH APRN) Physical Exam: PE: Constitutional: Well developed, well nourished, no acute distress, non-toxic appearance. [] HENT: Normocephalic, atraumatic, bilateral external ears normal, oropharynx moist, no oral exudates, nose normal. [] Eyes: PERRLA, EOMI, conjunctiva normal, no discharge. [] Neck: Normal range of motion, no tenderness, supple, no stridor. [] Cardiovascular:Heart rate regular rhythm, no murmur [] Lungs & Thorax: Bilateral breath sounds clear to auscultation [] Abdomen: Bowel sounds normal, soft, no tenderness, no masses, no pulsatile masses. [] Skin: Warm, dry, no erythema, no rash. [] Back: No tenderness, no CVA tenderness. [] Extremities: No tenderness, no cyanosis, no clubbing, ROM intact, no edema. [] Neurologic: Alert and oriented X 3, normal motor function, normal sensory function, no focal deficits noted. [] Psychologic: Labile mood, agitated (RAMIRO FARNSWORTH APRN) Current Patient Data: Labs: Laboratory Tests Test 03/14/21 15:15 White Blood Count 12.6 x10^3/uL (4.0-11.0) H Red Blood Count 4.59 x10^6/uL (3.50-5.40) Hemoglobin 14.1 g/dL (12.0-15.5) Hematocrit 42.3 % (36.0-47.0) Mean Corpuscular Volume 92 fL (79-100) Mean Corpuscular Hemoglobin 31 pg (25-35) Mean Corpuscular Hemoglobin Concent 33 g/dL (31-37) Red Cell Distribution Width 13.9 % (11.5-14.5) Platelet Count 369 x10^3/uL (140-400) Neutrophils (%) (Auto) 69 % (31-73) Lymphocytes (%) (Auto) 20 % (24-48) L Monocytes (%) (Auto) 10 % (0-9) H Eosinophils (%) (Auto) 1 % (0-3) Basophils (%) (Auto) 0 % (0-3) Neutrophils # (Auto) 8.7 x10^3uL (1.8-7.7) H Lymphocytes # (Auto) 2.5 x10^3/uL (1.0-4.8) Monocytes # (Auto) 1.3 x10^3/uL (0.0-1.1) H Eosinophils # (Auto) 0.1 x10^3/uL (0.0-0.7) Basophils # (Auto) 0.1 x10^3/uL (0.0-0.2) Sodium Level 133 mmol/L (136-145) L Potassium Level 5.1 mmol/L (3.5-5.1) Chloride Level 95 mmol/L (98-107) L Carbon Dioxide Level 29 mmol/L (21-32) Anion Gap 9 (6-14) Blood Urea Nitrogen 9 mg/dL (7-20) Creatinine 0.7 mg/dL (0.6-1.0) Estimated GFR (Cockcroft-Gault) 86.6 Glucose Level 103 mg/dL (70-99) H Calcium Level 9.7 mg/dL (8.5-10.1) Vital Signs: Vital Signs Date Time Temp Pulse Resp B/P (MAP) Pulse Ox O2 Delivery O2 Flow Rate FiO2 03/14/21 15:05 125/78 (94) 03/14/21 14:56 98.4 102 16 100 Room Air (RAMIRO FARNSWORTH APRN) EKG: EKG: [] (RAMIRO FARNSWORTH APRN) Radiology/Procedures: Radiology/Procedures: [] (RAMIRO FARNSWORTH APRN) Heart Score: C/O Chest Pain: No Risk Factors: Risk Factors: DM, Current or recent (<one month) smoker, HTN, HLP, family history of CAD, obesity. Risk Scores: Score 0 - 3: 2.5% MACE over next 6 weeks - Discharge Home Score 4 - 6: 20.3% MACE over next 6 weeks - Admit for Clinical Observation Score 7 - 10: 72.7% MACE over next 6 weeks - Early Invasive Strategies (RAMIRO FARNSWORTH APRN) Course & Med Decision Making: Course & Med Decision Making Pertinent Labs and Imaging studies reviewed. (See chart for details) [] Patient is a 56-year-old female who presents from [facility]. Patient was sent in for medical clearance for being combative and having delus ional thoughts. All labs unremarkable. Urine is negative for infection. Patient will be admitted to [facility] for further evaluation and management. Patient is hemodynamically stable and resting quietly in room. (RAMIRO FARNSWORTH APRN) Dragon Disclaimer: Dragon Disclaimer: This electronic medical record was generated, in whole or in part, using a voice recognition dictation system. (RAMIRO FARNSWORTH APRN) Attending Co-Sign The patient was seen and interviewed as well as examined at the bedside. The chart was reviewed. The case was discussed. Agree with the plan of care. (FCO VERA DO) Departure Departure: Impression: Primary Impression: Medical clearance for psychiatric admission Disposition: HOME / SELF CARE / HOMELESS Condition: STABLE Referrals: PCP,NO (PCP) RAMIRO FARNSWORTH APRN Mar 14, 2021 16:47 FCO VERA DO Mar 15, 2021 06:20
[2021-03-14 18:27] LABS: BACTERIA,URINE QNS /HPF (0-FEW); BILIRUBIN,URINE NEG (NEG); CLARITY,URINE CLEAR; COLOR,URINE COLORLESS; GLUCOSE,URINE NEG (NEG); NITRITE,URINE NEG (NEG); SQUAMOUS EPITHELIAL CELL,UR QNS /LPF; UROBILINOGEN,URINE 0.2 mg/dL (0.2 mg/dL); WBC,URINE QNS /HPF (0-4)
[2021-03-14 18:28] LABS: RBC,URINE QNS /HPF (0-2)
[2021-03-14] MEDS ORDERED: MAGNESIUM HYDROXIDE 2,400 MG/30 ML ORAL.SUSP. PO PRN (20:45)
[2021-03-14] MEDS ORDERED: METHYL SALICYLATE/MENTHOL TOPICAL OINTMENT 57GM TUBE. TP PRN (20:45)
[2021-03-14] MEDS ORDERED: MAG HYDROX/AL HYDROX/SIMETH 30 ML ORAL.SUSP PO PRN (20:45)
--- NOTE | 2021-03-14 20:48 | NUR ---
Admission Note with Justification for Ad[facility] to [facility] for protective oversight for emergency stabilization of acute psychiatric crisis. Pt admitted from: [facility] ER/ [facility] Mode of arrival: EMS Accompanied By: [facility] Staff Precipitating behaviors that initiated intake and admission: crying fits, screaming, singing, labile mood, manic, insomnia, "wild eyed stare", eloped from facility, refusing medications, delusional- thinks staff and male peer are trying to have sex with her. Description of failure of out patient attempts at stabilization in previous setting list behavior and medication trials: medication adjustments, 1:1, education, encouragement by staff Behaviors and assessment findings upon admission: Pt very labile- calm, then yelling, then crying. Pt delusional- she believes that I am someone named Emma, refusing to allow me to assess her and accusing me of putting her here and stealing $3000 from her. Pt uncooperative with assessment and orientation questions, and resistive with changing her clothes and removing her jewelry. Myself and SOFTWARE SUPPORT ANALYST were able to change her clothes and remove her personal items for inventory purposes and safe keeping. Pt yelling and crying, stating "It's my birthday" and "why would you send me here on my birthday". Pt very difficult to re-direct at this time. Plan: Admit for protective oversight for adjustment and stabilization of medications, behaviors and mood. Intense treatment regimen including groups, medication adjustments, therapy, consistent regimen for ADL's, self care, and sleep hygiene. Daily monitoring by Inpatient staff, Psychiatry, and Medical Physician.
[2021-03-14] MEDS ORDERED: ACETAMINOPHEN 325 MG TABLET PO PRN (21:45)
--- NOTE | 2021-03-14 22:05 | PDOC ---
Exam Note: Timothy Note: Please also refer to the separate dictated note~for this date of service dictated separately.~Patient seen individually. Discussed the patient with Nursing staff reviewed the chart.~Reviewed interim history and current functioning. Reviewed vital signs,~Labs/ Radiology~and current medications noted below. Continue current treatment with the changes noted in the dictated addendum note Assessment: Vital Signs/I&O: Vital Signs Date Time Temp Pulse Resp B/P (MAP) Pulse Ox O2 Delivery O2 Flow Rate FiO2 03/14/21 15:05 125/78 (94) 03/14/21 14:56 98.4 102 16 100 Room Air Labs: Laboratory Tests Test 03/14/21 15:15 03/14/21 15:39 White Blood Count 12.6 x10^3/uL (4.0-11.0) H Red Blood Count 4.59 x10^6/uL (3.50-5.40) Hemoglobin 14.1 g/dL (12.0-15.5) Hematocrit 42.3 % (36.0-47.0) Mean Corpuscular Volume 92 fL (79-100) Mean Corpuscular Hemoglobin 31 pg (25-35) Mean Corpuscular Hemoglobin Concent 33 g/dL (31-37) Red Cell Distribution Width 13.9 % (11.5-14.5) Platelet Count 369 x10^3/uL (140-400) Neutrophils (%) (Auto) 69 % (31-73) Lymphocytes (%) (Auto) 20 % (24-48) L Monocytes (%) (Auto) 10 % (0-9) H Eosinophils (%) (Auto) 1 % (0-3) Basophils (%) (Auto) 0 % (0-3) Neutrophils # (Auto) 8.7 x10^3uL (1.8-7.7) H Lymphocytes # (Auto) 2.5 x10^3/uL (1.0-4.8) Monocytes # (Auto) 1.3 x10^3/uL (0.0-1.1) H Eosinophils # (Auto) 0.1 x10^3/uL (0.0-0.7) Basophils # (Auto) 0.1 x10^3/uL (0.0-0.2) Sodium Level 133 mmol/L (136-145) L Potassium Level 5.1 mmol/L (3.5-5.1) Chloride Level 95 mmol/L (98-107) L Carbon Dioxide Level 29 mmol/L (21-32) Anion Gap 9 (6-14) Blood Urea Nitrogen 9 mg/dL (7-20) Creatinine 0.7 mg/dL (0.6-1.0) Estimated GFR (Cockcroft-Gault) 86.6 Glucose Level 103 mg/dL (70-99) H Calcium Level 9.7 mg/dL (8.5-10.1) Urine Collection Type Unknown Urine Color Colorless Urine Clarity Clear Urine pH 6.5 Urine Specific [place] 1.020 Urine Protein 100 mg/dl (NEG-TRACE) Urine Glucose (UA) Neg mg/dL (NEG) Urine Ketones (Stick) Neg mg/dL (NEG) Urine Blood Neg (NEG) Urine Nitrite Neg (NEG) Urine Bilirubin Neg (NEG) Urine Urobilinogen Dipstick 0.2 mg/dL (0.2 mg/dL) Urine Leukocyte Esterase Neg (NEG) Urine RBC /HPF (0-2) Urine WBC /HPF (0-4) Urine Squamous Epithelial Cells /LPF Urine Bacteria /HPF (0-FEW) Current Medications: I have reviewed the current psychotropics carefully including drug interactions. Risk benefit ratio favors no change other than as noted in my dictated progress note. Diagnosis: Problems: (1) Impulse control disorder (2) Anxiety disorder (3) Schizoaffective disorder, chronic condition with acute exacerbation (4) Psychosis, atypical BESSIE SOLORIO MD Mar 14, 2021 22:05
[2021-03-14] MEDS ORDERED: METF500T16 PO (22:10)
[2021-03-14] MEDS ORDERED: ATOR20TA58 PO (22:10)
[2021-03-14] MEDS ORDERED: RISP2TAB33 PO (22:10)
[2021-03-14] MEDS ORDERED: GABA250S6 PO (22:10)
[2021-03-14] MEDS ORDERED: CLON2TAB9 PO (22:10)
[2021-03-14] MEDS ORDERED: TROL35.4 TP (22:10)
[2021-03-14] MEDS ORDERED: TRAM50TA PO (22:10)
[2021-03-14] MEDS ORDERED: LORA-254 PO (22:10)
[2021-03-14] MEDS ORDERED: POTA10TA5 PO (22:10)
[2021-03-14] MEDS ORDERED: CARB1TAB33 PO (22:10)
[2021-03-14] MEDS ORDERED: RISP4TAB35 PO (22:10)
[2021-03-14] MEDS ORDERED: FURO20TA3 PO (22:10)
[2021-03-14] MEDS ORDERED: BENZ1TAB5 PO (22:10)
[2021-03-14 22:21] LABS: ALBUMIN 3.7 g/dL (3.4-5.0); ALBUMIN/GLOBULIN RATIO 0.9 (1.0-1.7); ALK PHOS 94 U/L (46-116); ALT (SGPT) 24 U/L (14-59); ANION GAP 8 (6-14); AST (SGOT) 10 U/L (15-37); BLOOD UREA NITROGEN 10 mg/dL (7-20); BUN/CREATININE RATIO 14 (6-20); CALCIUM 9.6 mg/dL (8.5-10.1); CARBON DIOXIDE 29 mmol/L (21-32); CHLORIDE 94 mmol/L (98-107); CREATININE 0.7 mg/dL (0.6-1.0); GFR 86.6; GLUCOSE 104 mg/dL (70-99); MAGNESIUM 2.5 mg/dL (1.8-2.4); POTASSIUM 4.7 mmol/L (3.5-5.1); SODIUM 131 mmol/L (136-145); TOTAL BILIRUBIN 0.3 mg/dL (0.2-1.0); TOTAL PROTEIN 7.9 g/dL (6.4-8.2); VAL ACID 15 mcg/mL (50-100)
[2021-03-14 22:27] VITALS: BP 176/103
[2021-03-14] MEDS: CARBIDOPA/LEVODOPA 10/100MG TABLET PO SCH ×2 (23:00→23:13)
[2021-03-14] MEDS: BENZTROPINE MESYLATE 1 MG TABLET PO SCH ×2 (23:00→23:13)
[2021-03-14] MEDS: LORazepam 1 MG TABLET PO SCH ×2 (23:00→23:13)
[2021-03-14] MEDS: clonazePAM 2 MG TABLET PO SCH ×2 (23:00→23:13)
[2021-03-14] MEDS: DIVALPROEX ER 500 MG TAB.ER.24H PO SCH ×2 (23:00→23:13)
[2021-03-14] MEDS: LACTOBACILLUS RHAMNOSUS GG 1 CAPSULE. PO SCH ×2 (23:00→23:13)
[2021-03-14] MEDS: risperiDONE 2 MG TABLET. PO SCH ×2 (23:00→23:13)
[2021-03-14] MEDS: METOPROLOL TART IMMED RELEASE 25 MG TABLET. PO SCH ×2 (23:00→23:14)
[2021-03-14] MEDS: traMADol 50 MG TABLET PO PRN (23:13)
[2021-03-14] MEDS: GABAPENTIN 250 MG/5 ML ORAL SOLUTION. PO SCH (23:14)
--- NOTE | 2021-03-14 23:30 | NUR ---
Pt had been requesting her Ativan since admission. After med reconciliation and verification were completed, I attempted to administer pt's HS medications. After oral Gabapentin administered, pt accused me of lying to her and giving her the wrong medication. Pt said that it was not Gabapentin and that when she takes it at her facility it tastes like Bubble Gum. I attempted to educate pt and even showed her the vial that the Gabapentin was in. She looked at the label and stated, "that's written in [place]. I can't read that". I assured her that it was in fact written in [place] but she again called me a "liar". I asked pt if she would like to take the rest of her medications and she said "no", "you're a bitch", "I'm not taking anything from you".
[2021-03-15 05:59] VITALS: BP 128/80
[2021-03-15] MEDS: LISINOPRIL 10 MG TABLET PO SCH (08:17)
[2021-03-15] MEDS: CARBIDOPA/LEVODOPA 10/100MG TABLET PO SCH ×3 (08:17→19:58)
[2021-03-15] MEDS: LORazepam 1 MG TABLET PO SCH ×3 (08:17→19:59)
[2021-03-15] MEDS: LACTOBACILLUS RHAMNOSUS GG 1 CAPSULE. PO SCH ×2 (08:17→19:59)
[2021-03-15] MEDS: ASCORBIC ACID 500 MG TABLET PO SCH ×2 (08:17→19:59)
[2021-03-15] MEDS: FERROUS SULFATE 325 MG TABLET. PO SCH ×2 (08:17→19:59)
[2021-03-15] MEDS: POTASSIUM CHLORIDE 10 MEQ TABLET.ER. PO SCH (08:18)
[2021-03-15] MEDS: BENZTROPINE MESYLATE 1 MG TABLET PO SCH ×2 (08:19→19:59)
[2021-03-15] MEDS: clonazePAM 2 MG TABLET PO SCH ×2 (08:19→19:59)
[2021-03-15] MEDS: ASPIRIN CHEWABLE 81 MG TABLET. PO SCH (08:19)
[2021-03-15] MEDS: ATORVASTATIN CALCIUM 20 MG TABLET PO SCH (08:19)
[2021-03-15] MEDS: METOPROLOL TART IMMED RELEASE 25 MG TABLET. PO SCH ×2 (08:19→20:00)
[2021-03-15] MEDS: CELECOXIB 100 MG CAPSULE PO SCH (08:19)
[2021-03-15] MEDS: metFORMIN 500 MG TABLET PO SCH ×3 (08:19→16:01)
[2021-03-15] MEDS: PANTOPRAZOLE 40 MG TABLET. PO SCH (08:20)
[2021-03-15] MEDS: DIVALPROEX ER 500 MG TAB.ER.24H PO SCH ×2 (08:20→19:59)
[2021-03-15] MEDS: FUROSEMIDE 20 MG TABLET PO SCH (08:20)
[2021-03-15] MEDS: NICOTINE 21MG PATCH. TD SCH (08:21)
[2021-03-15] MEDS: TROLAMINE SALICYLATE 10% TOPICAL CREAM 85GM JAR. TP SCH ×3 (09:04→20:04)
--- NOTE | 2021-03-15 10:21 | NUR ---
FATOUMATA contacted Coral, pt guardian, to see if she had any questions or concerns at this time. Coral reports not having any and that if she does she has the number to the unit and will call. FATOUMATA will follow up with Coral next week after team on .
--- NOTE | 2021-03-15 10:32 | NUR ---
FATOUMATA emailed APOLONIA Carter at [facility] on , to let her know how pt's night went and informed her that tx team is on . FATOUMATA will make sure to contact Emma with updates on pt behaviors and discharge planning.
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
--- NOTE | 2021-03-15 12:07 | NUR ---
Treatment Team Note: Pt is eating roughly ate 75 of breakfast this morning and slept 5.75 hours last night. Pt continues to be labile and was very resistive to cares. Pt required a lot of redirection in taking medications and for calling the HS nurse a "bitch" multiple times during assessment and medication pass. This morning, pt was compliant in taking medications. Pt did refuse to walk anywhere with PT/OT during evaluation but was able to transfer and do other thinks SBA to almost independent. Pt appears to have pretty significant tremors and complaints of neuropathy. Pt will receive another Depakote level over the weekend and the psychiatrist will review pt discharge medications when last admitted in January 2019. Team to review pt case next .
--- NOTE | 2021-03-15 12:20 | TX PLAN ---
Interdisciplinary Tx Plan Admission Information Mar 14, 2021 at 19:55 Legal Status (on Admission): Voluntary DPOA/Guardian Name: Coral Walters Contact Other Contact Name: Deshawn on Other Contact Verified Code Status: Full Code Allergies: Coded Allergies: haloperidol (Verified Allergy, Intermediate, 12/21/15) Diagnoses Primary Diagnosis: Schizoaffective D/O Bipolar type, mixed with psychotic features Reasons for Admission: Delusions, Sig. Change Sleep, Poor impulse control, Other Problem in Patient's Words: "I have nothing right now". Additional Admission Comments: According to the intake, pt is labile/manic AEB having crying fits, screaming then randomly singing, exit seeking, refusing cares, not sleeping, eloped and refusion meds. Pt is delusional thinking staff and male peer are trying to have sex with her. Problems Active Problems: resistive to cares labile delusional somatic complaints Inactive Problems: mostly medication compliant Pt Strengths/Limitations Ability for Golf: Poor Cognitive Functioning/Ability: Fair Communication Skills/Ability: Fair Financial Resources: Poor Insight/Judgement: Poor Intellectual Ability: Fair Physical Health: Poor Social Skills: Poor Stability in Family: Poor Stability in School/Work: Poor Verbal Skills: Fair Discharge Criteria Discharge Criteria: No need for close observ., Adequate arrangements @DC, Improved behavior, Improved mood/thought Preliminary Discharge Plan Preliminary DC Plan: Current Living Arrange. Special Precautions Fall Risk: Moderate Initial D/C Plan Pt to return to [facility] on once stable. Identified Discharge Needs: Psychiatric services Currently Utilized Resources Currently Utilized Resources/P: Primary Care Physician Referrals Community Resources: Psychiatric follow-up Identified Problems/Hx/Goals Objectives/Short-Term Goals Short Term Goals: Dec. Hallucination/Delus, Dec. Outbursts, Medication Stabilization, Monitor Med Effects, Promote Coping Skill, Other Short Term Goals in Patient's: N/A Interventions/Frequency Staff Interventions/Frequency&: Psychiatrist to assess pt at least 3x per week for medication management. Social Work to assess pt at least 2x per week to identify barriers to care and dishcarge planning goals. Nursing to assess medication effects, behavior modification and completion of 15 minute checks daily. 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
--- NOTE | 2021-03-15 13:30 | NUR ---
ACTIVITY THERAPY ASSESSMENT Completed based on observation, notes and interview. Pt. was in the hallway and agreeable to speak with [facility]. Pt. was able to recall previous admit but a different Activity Therapist. She was able to recall other facts/ details like her birthday being yesterday but said she was "45". She knew she was here to get her medications fixed but explained "Jacqui" gave her alcohol in an eye dropper last night and was told it was Gabapentin but it did not taste like that at all and it's messed with her legs. Pt. had tremors but was able to stay on task in conversation. She said she likes to go by "[employer]" and has a lot of interest/ hobbies. She just got paints for her birthday but she doesn't have then here. She did bring some beauty magazines. Pt. was agreeable to join [facility] for group this afternoon. At times, Pt. can be impatient with peers and staff. She propels herself around in her wheelchair. Initial goal aimed to increase engagement and socialization: Pt. will participate in at least one Activity Therapy group per day. Addendum: 04/04/21 at 1326 by YUAN WHEELER ACT Goal repeated 04/04
[2021-03-15] MEDS: GABAPENTIN 250 MG/5 ML ORAL SOLUTION. PO SCH ×4 (13:55→20:05)
[2021-03-15] MEDS: risperiDONE 2 MG TABLET. PO SCH ×2 (13:57→19:58)
[2021-03-15 15:33] VITALS: BP 150/82
[2021-03-15] MEDS: traMADol 50 MG TABLET PO PRN ×2 (16:01→20:03)
--- NOTE | 2021-03-15 16:56 | NUR ---
NSG NOTE; SHIFT SUMMARY pt has been med resistant today, needing for the ativan to be withheld until she took the rest of her meds. she ultimately refused the 1400 dose of gabepentin. she is able to self transfer, as evaluated by PT/OT, but is very resistive, asking for help. she is encouraged to transfer herself with staff standby. she toileted herself and clogged the toilet with toilet paper. she was taken to the shower and cried and told the HYDRAULIC RIVETER that she hated her. she has tremors of her arms and head.
[2021-03-15 19:31] LABS: THYROID STIM HORMONE (TSH) 2.134 uIU/mL (0.358-3.740)
--- NOTE | 2021-03-15 22:03 | PDOC ---
Exam Note: Timothy Note: Please also refer to the separate dictated note~for this date of service dictated separately.~Patient seen individually. Discussed the patient with Nursing staff reviewed the chart.~Reviewed interim history and current functioning. Reviewed vital signs,~Labs/ Radiology~and current medications noted below. Continue current treatment with the changes noted in the dictated addendum note Assessment: Vital Signs/I&O: Vital Signs Date Time Temp Pulse Resp B/P (MAP) Pulse Ox O2 Delivery O2 Flow Rate FiO2 03/15/21 20:33 98 03/15/21 20:00 101 150/82 03/15/21 15:33 98.0 20 Room Air 03/14/21 22:27 94.0 I & O 03/14/21 03/14/21 03/15/21 15:00 23:00 07:00 Intake Total 120 ml Balance 120 ml Labs: Laboratory Tests Test 03/14/21 22:17 D-Dimer (Samia) 0.31 mg/L (0.00-0.50) Iron Level 40 ug/dL (50-170) L Total Iron Binding Capacity 244 ug/dL (250-450) L Iron Saturation 16 % (15-34) Current Medications: Meds: Laboratory Tests Test 03/14/21 22:17 D-Dimer (Samia) 0.31 mg/L Iron Level 40 ug/dL Total Iron Binding Capacity 244 ug/dL Iron Saturation 16 % Current Medications Medications (Trade) Dose Ordered Sig/Arnold Route PRN Reason Start Time Stop Time Status Last Admin Dose Admin Acetaminophen (Tylenol) 650 mg PRN Q6HRS PRN PO MILD PAIN / TEMP > 100.3'F 03/14/21 20:45 Multi-Ingredient Ointment (Analgesic [place]) 1 shwetha PRN QID PRN TP MUSCLE PAIN 03/14/21 20:45 Al Hydroxide/Mg Hydroxide (Mylanta Plus Xs) 15 ml PRN AFTMEALHC PRN PO DYSPEPSIA 03/14/21 20:45 Magnesium Hydroxide (Milk Of Magnesia) 2,400 mg PRN QHS PRN PO CONSTIPATION 03/14/21 20:45 Acetaminophen (Tylenol) 650 mg TID PRN PO Back Pain 03/14/21 21:45 UNV Ascorbic Acid (Vitamin C) 500 mg BID PO 03/15/21 09:00 03/15/21 19:59 Aspirin (Aspirin Chewable) 81 mg DAILY PO 03/15/21 09:00 03/15/21 08:19 Atorvastatin Calcium (Lipitor) 20 mg DAILY PO 03/15/21 09:00 03/15/21 08:19 Carbidopa/Levodopa (Sinemet 10/100) 1 tab TID PO 03/14/21 23:00 03/15/21 19:58 Vitamin D (Vitamin D3) 50,000 unit QWE PO 03/20/21 16:00 Ferrous Sulfate (Feosol) 325 mg BID PO 03/15/21 09:00 03/15/21 19:59 Furosemide (Lasix) 20 mg DAILY PO 03/15/21 09:00 03/15/21 08:20 Gabapentin (Neurontin Oral Soln) 150 mg BID@1400,2200 PO 03/14/21 23:00 03/14/21 23:14 Lisinopril (Prinivil) 10 mg DAILY PO 03/15/21 09:00 03/15/21 08:17 Metformin HCl (Glucophage) 500 mg BIDWMEALS PO 03/15/21 08:00 03/15/21 16:01 Metoprolol Tartrate (Lopressor) 12.5 mg BID PO 03/14/21 23:00 03/15/21 20:00 Tramadol HCl (Ultram) 50 mg PRN Q6HRS PRN PO PAIN 03/14/21 21:45 03/15/21 20:03 Celecoxib (CeleBREX) 200 mg DAILY PO 03/15/21 09:00 03/15/21 08:19 Lactobacillus Rhamnosus (Culturelle) 1 cap BID PO 03/14/21 23:00 03/15/21 19:59 Pantoprazole Sodium (Protonix) 40 mg DAILY PO 03/15/21 09:00 03/15/21 08:20 Potassium Chloride (Klor-Con) 10 meq DAILY PO 03/15/21 09:00 03/15/21 08:18 Trolamine Salicylate (Myoplex) 1 shwetha TID TP 03/15/21 09:00 03/15/21 13:55 Benztropine Mesylate (Cogentin) 1 mg BID PO 03/14/21 23:00 03/15/21 19:59 Clonazepam (KlonoPIN) 2 mg BID PO 03/14/21 23:00 03/15/21 19:59 Divalproex Sodium (Depakote Er) 1,000 mg BID PO 03/14/21 23:00 03/15/21 19:59 Fluphenazine HCl (Prolixin) 15 mg BID PO 03/14/21 23:00 03/15/21 20:00 Lorazepam (Ativan) 1 mg TID PO 03/14/21 23:00 03/15/21 19:59 Risperidone (RisperDAL) 2 mg DAILY@1400 PO 03/15/21 14:00 03/15/21 13:57 Risperidone (RisperDAL) 4 mg QHS PO 03/14/21 23:00 03/15/21 19:58 Nicotine (Nicoderm Cq 21mg Patch) 1 patch DAILY TD 03/15/21 09:00 03/15/21 08:21 Current Medications Medications (Trade) Dose Ordered Sig/Arnold Route PRN Reason Start Time Stop Time Status Last Admin Dose Admin Ascorbic Acid (Vitamin C) 500 mg BID PO 03/15/21 09:00 03/15/21 19:59 Aspirin (Aspirin Chewable) 81 mg DAILY PO 03/15/21 09:00 03/15/21 08:19 Atorvastatin Calcium (Lipitor) 20 mg DAILY PO 03/15/21 09:00 03/15/21 08:19 Carbidopa/Levodopa (Sinemet 10/100) 1 tab TID PO 03/14/21 23:00 03/15/21 19:58 Ferrous Sulfate (Feosol) 325 mg BID PO 03/15/21 09:00 03/15/21 19:59 Furosemide (Lasix) 20 mg DAILY PO 03/15/21 09:00 03/15/21 08:20 Gabapentin (Neurontin Oral Soln) 150 mg BID@1400,2200 PO 03/14/21 23:00 03/14/21 23:14 Lisinopril (Prinivil) 10 mg DAILY PO 03/15/21 09:00 03/15/21 08:17 Metformin HCl (Glucophage) 500 mg BIDWMEALS PO 03/15/21 08:00 03/15/21 16:01 Metoprolol Tartrate (Lopressor) 12.5 mg BID PO 03/14/21 23:00 03/15/21 20:00 Celecoxib (CeleBREX) 200 mg DAILY PO 03/15/21 09:00 03/15/21 08:19 Lactobacillus Rhamnosus (Culturelle) 1 cap BID PO 03/14/21 23:00 03/15/21 19:59 Pantoprazole Sodium (Protonix) 40 mg DAILY PO 03/15/21 09:00 03/15/21 08:20 Potassium Chloride (Klor-Con) 10 meq DAILY PO 03/15/21 09:00 03/15/21 08:18 Trolamine Salicylate (Myoplex) 1 shwetha TID TP 03/15/21 09:00 03/15/21 13:55 Benztropine Mesylate (Cogentin) 1 mg BID PO 03/14/21 23:00 03/15/21 19:59 Clonazepam (KlonoPIN) 2 mg BID PO 03/14/21 23:00 03/15/21 19:59 Divalproex Sodium (Depakote Er) 1,000 mg BID PO 03/14/21 23:00 03/15/21 19:59 Fluphenazine HCl (Prolixin) 15 mg BID PO 03/14/21 23:00 03/15/21 20:00 Lorazepam (Ativan) 1 mg TID PO 03/14/21 23:00 03/15/21 19:59 Risperidone (RisperDAL) 2 mg DAILY@1400 PO 03/15/21 14:00 03/15/21 13:57 Risperidone (RisperDAL) 4 mg QHS PO 03/14/21 23:00 03/15/21 19:58 Nicotine (Nicoderm Cq 21mg Patch) 1 patch DAILY TD 03/15/21 09:00 03/15/21 08:21 I have reviewed the current psychotropics carefully including drug interactions. Risk benefit ratio favors no change other than as noted in my dictated progress note. Diagnosis: Problems: (1) Anxiety disorder (2) Impulse control disorder (3) Schizoaffective disorder, chronic condition with acute exacerbation BESSIE SOLORIO MD Mar 15, 2021 22:03
--- NOTE | 2021-03-16 01:19 | NUR ---
Pt in hallway when approached. Pt mood extremely labile AEB calm and cooperative upon first approach but easily agitated, began yelling and crying, then demanded her birthday cake. "I want my birthday cake NOW!" Pt refused assessment, was compliant with HS medications with the exception of her Gabapentin liquid. Pt stated "I'm not taking that. That's not Gabapentin. That tastes like ether." Pt c/o pain BLE and feet, requested Tramadol. After pt took medications, she then accused me of taking her Tramadol and not giving her the scheduled HS Ativan, stating "you're trying to copy operator a high off me you lying bitch". I attempted to reassure her that she in fact took all of her medications but I was unable to appease her.
[2021-03-16 04:08] LABS: HEMOGLOBIN A1C 5.9 % (4.8-5.6)
[2021-03-16 05:24] VITALS: BP 124/82
--- NOTE | 2021-03-16 05:42 | CONS ---
DATE OF CONSULTATION: 03/15/2021 HISTORY OF PRESENT ILLNESS: The patient is a 56-year-old female patient, a resident at [address], who was admitted on account of having crying fits, screaming, singing with very labile mood, not sleeping while ____, refusing medication, refusing care, delusional, thinks the staff and male peer are trying to have sex with her. Apparently, an outpatient psychiatric intervention by adding clonazepam, Depakote was tried with 1:1 sitter without really much improvement and the patient was [facility]. PAST MEDICAL HISTORY: Significant for hypertension, hyperlipidemia, type 2 diabetes mellitus, hypothyroidism, Parkinson's disease, peripheral neuropathy, and gastroesophageal reflux disease. PAST SURGICAL HISTORY: Unobtainable. ALLERGIES: SHE IS ALLERGIC TO HALDOL. MEDICATIONS: She is currently on the following medication: She is on ferrous sulfate 325 mg twice a day, atorvastatin calcium 20 mg at bedtime, metoprolol tartrate 12.5 mg twice a day, lisinopril 10 mg daily, aspirin 81 mg once a day, Celebrex 200 mg once a day, tramadol 50 mg every 6 hours, Tylenol 650 mg 2 times a day, clonazepam 2 mg twice a day, divalproex 1000 mg p.o. b.i.d., gabapentin 250 mg 3 times a day, fluphenazine 15 mg twice a day, risperidone 2 mg daily, risperidone 4 mg at bedtime. She is on lorazepam 1 mg 3 times a day, benztropine mesylate 1 mg twice a day, carbidopa/levodopa 10/100 three times a day, potassium chloride 10 mEq once a day, furosemide 20 mg once a day, omeprazole 20 mg once a day, lactobacillus rhamnosus 1 capsule twice a day, metformin 500 mg twice a day with meals and Aspercreme 10% cream apply topically 3 times a day, ascorbic acid 500 mg twice a day, vitamin D 50,000 units p.o. once a week every Thursday. PHYSICAL EXAMINATION:: GENERAL: On examining her, the patient was sitting in her wheelchair, in no apparent respiratory distress. There was no pallor, jaundice, cyanosis, or thyromegaly. No jugular distention. No limb edema. VITAL SIGNS: Heart rate was 101, blood pressure is 150/82, temperature was 98, respiratory rate 20, and oxygen saturation was 98%. HEAD, EYES, EARS, NOSE, AND THROAT: Normocephalic, atraumatic. NECK: Supple. HEART: Showed normal first and second heart sounds, no gallop, murmur. CHEST: Clear to auscultation. No crepitation or rhonchi. ABDOMEN: Distended, soft, nontender. NEUROLOGIC: She is awake, alert, responding appropriately. All cranial nerves intact. She has prominent tremors involving both upper extremities. She apparently is mostly wheelchair bound. LABORATORY DATA: Showed a white cell count 12,600, hemoglobin 14, hematocrit 42, MCV 92 and platelet count 369,000. Her chemistry showed a serum sodium 131, potassium 4.7, chloride 94, bicarbonate 29, anion gap 8, BUN 10, creatinine 0.7. Estimated GFR was 86 mL per minute. Her glucose 104, calcium was 9.6, magnesium was 2.5. Total bilirubin, AST, ALT, alkaline phosphatase were normal. Total protein 7.9, albumin 3.7. Her D-dimer was 0.31 mg per liter. Her urinalysis essentially unremarkable and toxic screen showed that valproic acid was only 15 mcg/mL. ASSESSMENT: In summary, this is a 56-year-old female patient, resident at [address], who was admitted for inpatient psychiatric stabilization. She has been having crying fits, screaming, singing with markedly labile mood. She is exit seeking, refusing cares, not sleeping while ____, refusing medication, delusional, thinks staff and male peers are trying to have sex with her. The patient has a background of schizophrenia versus schizoaffective disorder with anxiety and delusional disorders. Medically, she has multiple medical problems that seem to be generally stable. She is known to have hypertension, hyperlipidemia, type 2 diabetes mellitus, hypothyroidism, Parkinson disease, and gastroesophageal reflux disease. The patient has prominent parkinsonian tremors in both upper extremities. She is only on 10/100 mg carbidopa/levodopa 3 times a day. I would recommend consult Dr. Kyle to perhaps assist with her management. Thank you, Dr. Maher, for allowing me to participate in the care of this patient. MARIAJOSE/CANDE/LIBORIO DR: MARIAJOSE/nancy TID: [id number]
[2021-03-16] MEDS: metFORMIN 500 MG TABLET PO SCH ×2 (08:00→17:00)
[2021-03-16 08:30] LABS: VAL ACID 92 mcg/mL (50-100)
[2021-03-16] MEDS: traMADol 50 MG TABLET PO PRN (08:30)
[2021-03-16] MEDS: LORazepam 1 MG TABLET PO SCH ×2 (08:34→14:00)
[2021-03-16] MEDS: CELECOXIB 100 MG CAPSULE PO SCH (08:34)
[2021-03-16] MEDS: ASPIRIN CHEWABLE 81 MG TABLET. PO SCH (08:34)
[2021-03-16] MEDS: FERROUS SULFATE 325 MG TABLET. PO SCH ×2 (08:34→19:56)
[2021-03-16] MEDS: BENZTROPINE MESYLATE 1 MG TABLET PO SCH ×2 (08:34→19:56)
[2021-03-16] MEDS: LACTOBACILLUS RHAMNOSUS GG 1 CAPSULE. PO SCH ×2 (08:34→19:55)
[2021-03-16] MEDS: DIVALPROEX ER 500 MG TAB.ER.24H PO SCH ×2 (08:34→19:55)
[2021-03-16] MEDS: PANTOPRAZOLE 40 MG TABLET. PO SCH (08:35)
[2021-03-16] MEDS: LISINOPRIL 10 MG TABLET PO SCH (08:35)
[2021-03-16] MEDS: ASCORBIC ACID 500 MG TABLET PO SCH ×2 (08:35→19:56)
[2021-03-16] MEDS: METOPROLOL TART IMMED RELEASE 25 MG TABLET. PO SCH ×2 (08:35→19:57)
[2021-03-16] MEDS: CARBIDOPA/LEVODOPA 10/100MG TABLET PO SCH ×3 (08:35→19:56)
[2021-03-16] MEDS: FUROSEMIDE 20 MG TABLET PO SCH (08:35)
[2021-03-16] MEDS: ATORVASTATIN CALCIUM 20 MG TABLET PO SCH (08:35)
[2021-03-16] MEDS: POTASSIUM CHLORIDE 10 MEQ TABLET.ER. PO SCH (08:35)
[2021-03-16] MEDS: NICOTINE 21MG PATCH. TD SCH (08:36)
[2021-03-16] MEDS: clonazePAM 2 MG TABLET PO SCH ×2 (09:00→19:57)
[2021-03-16] MEDS: TROLAMINE SALICYLATE 10% TOPICAL CREAM 85GM JAR. TP SCH ×3 (09:00→19:59)
[2021-03-16] MEDS: GABAPENTIN 100 MG CAPSULE. PO SCH ×2 (14:00→19:56)
[2021-03-16] MEDS: risperiDONE 2 MG TABLET. PO SCH ×2 (14:00→19:56)
[2021-03-16 15:52] VITALS: BP 112/72
--- NOTE | 2021-03-16 17:35 | NUR ---
Pt has been up adl in wc. Out for meals and in day room. Pt argumentative with meds but has still taken them. Dr Kyle here to ee pt for tremors. Started pt on Requip TID. Pharmacy consult ordered for possible Clozaril treatment.
[2021-03-16] MEDS: rOPINIRole 0.5 MG TABLET. PO SCH (19:56)
--- NOTE | 2021-03-16 21:54 | HP ---
ADMIT DATE: 03/15/2021 PSYCHIATRIC ADMISSION HISTORY/EVALUATION This is a late entry, date of service 03/15/2021, covers elements not covered in my initial note of 03/15/2021. I met with the patient evening of 03/15/2021 for this evaluation. IDENTIFYING DATA: The patient is a 56-year-old female referred back to us from [facility] on [address] in [facility] on account of an acute exacerbation of her schizoaffective disorder, bipolar type. The patient had been extremely psychotic, agitated, paranoid. She is paranoid, actively hallucinating, agitated, disruptive and had failed outpatient psychiatric interventions resulting in this referral back to us. CHIEF COMPLAINT: "They are doing these things to me. They are trying to kill me." HISTORY OF PRESENT ILLNESS: The patient has a long history of schizoaffective disorder, bipolar type. She has been residing at the above care home for some time and was last in inpatient with us back in 02/2019. Recently, she has been more paranoid, agitated, having sleep and appetite problems, extremely disruptive, unmanageable at the facility. She continues to have significant mood swings and worsening paranoia. PAST PSYCHIATRIC HISTORY: As above. PAST MEDICAL HISTORY: Hypertension, GERD, herpes viral infection, Accu-Cheks daily. ALLERGIES: HALDOL. Diet is regular. Takes medications whole. Ambulates wheelchair. She refuses to ambulate or transfer, but reportedly she can do this. UA was negative. Current psychotropics, Ativan 1 mg t.i.d.; Cogentin 1 mg b.i.d.; Sinemet 10/100 t.i.d.; Klonopin 1 mg b.i.d.; Depakote ER 1000 mg b.i.d.; Prolixin 15 mg b.i.d.; gabapentin 100 mg at 1400, 200 mg at 2200; Risperdal 2 mg at 1400, 4 mg at bedtime. FAMILY HISTORY: Noncontributory. SOCIAL HISTORY: No history of alcohol or drug abuse, physical, sexual, or elder abuse. She is not known to be a perpetrator. Reaction to hospitalization, the patient accepting of it. ASSETS: Supportive living at the facility. REVIEW OF SYSTEMS: Ambulation impaired, in wheelchair. Complains of tremors, difficulty with the movements and she does have visible tremors. No CV, , GI, eye, ENT system symptoms on review. MENTAL STATUS EXAM: GENERAL: The patient was seen individually evening of 03/15/2021. She seemed to remember me. She is awake, alert, oriented. Speech coherent, rapid at times. Abstraction fair, computation impaired, language function intact. Attention span short. Mood and affect remained extremely labile. She is paranoid, blaming staff at the care home for various things, suspicious. No active suicidal or homicidal ideation. LABORATORY DATA: Reviewed. ASSESSMENT: Schizoaffective disorder, bipolar type, mixed with psychotic features; anxiety disorder, unspecified; impulse control disorder, unspecified. Rest diagnoses as above. PLAN: Admit to geropsychiatry unit at [facility]. I will see the patient daily individually from a psychiatric standpoint, medical followup with Dr. Rosas/Dr. Claros. We will have a neurology consult with Dr. Kyle for her parkinsonian symptoms which appear related to her atypical antipsychotics. Consider Clozaril to help simplify her antipsychotic regimen. Valproic acid level on admission subtherapeutic at 15, could be possibly due to noncompliance with medications. We will repeat it on the , adjust Depakote thereafter. Estimated length of stay 10 to 12 days. DISPOSITION: Plans back to care home when stable. KALEB DR: MELODIE/nancy TID: [id number]
--- NOTE | 2021-03-16 21:57 | NUR ---
Pt propelling self in WC in hallway, irritable when approached for assessment. Pt stated she would allow assessment but then swatted stethoscope away when placed on her chest to auscultate. Pt also resistive to meds. Pt educated on each pill individually, pt initially refused to take them as "they're going to kill me" but pt did eventually take meds whole after some coaxing. Pt requires repeated encouragement to perform ADL's, but continues to request assistance with tasks she can perform herself.
--- NOTE | 2021-03-16 22:02 | PDOC ---
Exam Note: Timothy Note: Please also refer to the separate dictated note~for this date of service dictated separately.~Patient seen individually. Discussed the patient with Nursing staff reviewed the chart.~Reviewed interim history and current functioning. Reviewed vital signs,~Labs/ Radiology~and current medications noted below. Continue current treatment with the changes noted in the dictated addendum note Assessment: Vital Signs/I&O: Vital Signs Date Time Temp Pulse Resp B/P (MAP) Pulse Ox O2 Delivery O2 Flow Rate FiO2 03/16/21 19:57 75 112/72 03/16/21 15:52 97.4 20 92 Room Air 03/14/21 22:27 94.0 I & O 03/15/21 03/15/21 03/16/21 15:00 23:00 07:00 Intake Total 560 ml 440 ml Balance 560 ml 440 ml Labs: Laboratory Tests Test 03/16/21 07:20 03/16/21 07:54 Valproic Acid Level 92 mcg/mL (50-100) Valproic Acid Last Dose Date 03/15/2021 Valproic Acid Last Dose Time 2100 Glucose (Fingerstick) 114 mg/dL (70-99) H Current Medications: Meds: Laboratory Tests Test 03/16/21 07:20 03/16/21 07:54 Valproic Acid (Depakene) Level 92 mcg/mL Valproic Acid Last Dose Date 03/15/2021 Valproic Acid Last Dose Time 2100 Glucose (Fingerstick) 114 mg/dL Current Medications Medications (Trade) Dose Ordered Sig/Arnold Route PRN Reason Start Time Stop Time Status Last Admin Dose Admin Acetaminophen (Tylenol) 650 mg PRN Q6HRS PRN PO MILD PAIN / TEMP > 100.3'F 03/14/21 20:45 Multi-Ingredient Ointment (Analgesic [place]) 1 shwetha PRN QID PRN TP MUSCLE PAIN 03/14/21 20:45 Al Hydroxide/Mg Hydroxide (Mylanta Plus Xs) 15 ml PRN AFTMEALHC PRN PO DYSPEPSIA 03/14/21 20:45 Magnesium Hydroxide (Milk Of Magnesia) 2,400 mg PRN QHS PRN PO CONSTIPATION 03/14/21 20:45 Acetaminophen (Tylenol) 650 mg TID PRN PO Back Pain 03/14/21 21:45 UNV Ascorbic Acid (Vitamin C) 500 mg BID PO 03/15/21 09:00 03/16/21 19:56 Aspirin (Aspirin Chewable) 81 mg DAILY PO 03/15/21 09:00 03/16/21 08:34 Atorvastatin Calcium (Lipitor) 20 mg DAILY PO 03/15/21 09:00 03/16/21 08:35 Carbidopa/Levodopa (Sinemet 10/100) 1 tab TID PO 03/14/21 23:00 03/16/21 19:56 Vitamin D (Vitamin D3) 50,000 unit QWE PO 03/20/21 16:00 Ferrous Sulfate (Feosol) 325 mg BID PO 03/15/21 09:00 03/16/21 19:56 Furosemide (Lasix) 20 mg DAILY PO 03/15/21 09:00 03/16/21 08:35 Gabapentin (Neurontin Oral Soln) 150 mg BID@1400,2200 PO 03/14/21 23:00 03/16/21 13:20 DC 03/14/21 23:14 Lisinopril (Prinivil) 10 mg DAILY PO 03/15/21 09:00 03/16/21 08:35 Metformin HCl (Glucophage) 500 mg BIDWMEALS PO 03/15/21 08:00 03/16/21 17:00 Metoprolol Tartrate (Lopressor) 12.5 mg BID PO 03/14/21 23:00 03/16/21 19:57 Tramadol HCl (Ultram) 50 mg PRN Q6HRS PRN PO PAIN 03/14/21 21:45 03/16/21 08:30 Celecoxib (CeleBREX) 200 mg DAILY PO 03/15/21 09:00 03/16/21 08:34 Lactobacillus Rhamnosus (Culturelle) 1 cap BID PO 03/14/21 23:00 03/16/21 19:55 Pantoprazole Sodium (Protonix) 40 mg DAILY PO 03/15/21 09:00 03/16/21 08:35 Potassium Chloride (Klor-Con) 10 meq DAILY PO 03/15/21 09:00 03/16/21 08:35 Trolamine Salicylate (Myoplex) 1 shwetha TID TP 03/15/21 09:00 03/16/21 19:59 Benztropine Mesylate (Cogentin) 1 mg BID PO 03/14/21 23:00 03/16/21 19:56 Clonazepam (KlonoPIN) 2 mg BID PO 03/14/21 23:00 03/16/21 16:48 DC 03/16/21 09:00 Divalproex Sodium (Depakote Er) 1,000 mg BID PO 03/14/21 23:00 03/16/21 19:55 Fluphenazine HCl (Prolixin) 15 mg BID PO 03/14/21 23:00 03/16/21 19:57 Lorazepam (Ativan) 1 mg TID PO 03/14/21 23:00 03/16/21 18:45 DC 03/16/21 14:00 Risperidone (RisperDAL) 2 mg DAILY@1400 PO 03/15/21 14:00 03/16/21 14:00 Risperidone (RisperDAL) 4 mg QHS PO 03/14/21 23:00 03/16/21 19:56 Nicotine (Nicoderm Cq 21mg Patch) 1 patch DAILY TD 03/15/21 09:00 03/16/21 08:36 Gabapentin (Neurontin) 100 mg TID PO 03/16/21 14:00 03/16/21 19:56 Ropinirole HCl (Requip) 0.5 mg TID PO 03/16/21 21:00 03/16/21 19:56 Clonazepam (KlonoPIN) 2 mg HS PO 03/16/21 21:00 03/19/21 21:01 03/16/21 19:57 Clonazepam (KlonoPIN) 1.5 mg DAILY PO 03/17/21 09:00 03/23/21 08:00 Clonazepam (KlonoPIN) 1 mg DAILY PO 03/23/21 09:00 03/28/21 09:01 Clonazepam (KlonoPIN) 0.5 mg DAILY PO 03/29/21 09:00 04/03/21 09:01 Clonazepam (KlonoPIN) 1.5 mg HS PO 03/20/21 21:00 03/25/21 21:01 Clonazepam (KlonoPIN) 1 mg QHS PO 03/26/21 21:00 03/31/21 21:01 Clonazepam (KlonoPIN) 0.5 mg HS PO 04/01/21 21:00 04/06/21 21:01 Lorazepam (Ativan) 1 mg BID PO 03/17/21 21:00 03/19/21 21:01 Lorazepam (Ativan) 1 mg DAILY PO 03/20/21 09:00 03/22/21 08:59 Current Medications Medications (Trade) Dose Ordered Sig/Arnold Route PRN Reason Start Time Stop Time Status Last Admin Dose Admin Gabapentin (Neurontin) 100 mg TID PO 03/16/21 14:00 03/16/21 19:56 Ropinirole HCl (Requip) 0.5 mg TID PO 03/16/21 21:00 03/16/21 19:56 Clonazepam (KlonoPIN) 2 mg HS PO 03/16/21 21:00 03/19/21 21:01 03/16/21 19:57 I have reviewed the current psychotropics carefully including drug interactions. Risk benefit ratio favors no change other than as noted in my dictated progress note. Diagnosis: Problems: (1) Anxiety disorder (2) Impulse control disorder (3) Schizoaffective disorder, chronic condition with acute exacerbation (4) Psychosis, atypical BESSIE SOLORIO MD Mar 16, 2021 22:02
[2021-03-17 05:45] VITALS: BP 140/83
--- NOTE | 2021-03-17 08:04 | PDOC ---
Exam Note: Timothy Note: This note is a late entry and also an addendum for 03/15/2021 covers elements not covered in my initial note. Subjective: The patient was reviewed in the morning of 03/15/2021 for a tr eatment team meeting with Jennifer Hill, Dena Fuentes (social media editor), Mar, activity therapy and Bren DORAN, discussed and reviewed the chart. She slept 5-3/4 hours previous night. The patient has been anxious, restless with marked mood lability, calling the nursing staff bitches, paranoid. We will repeat valproic acid level in 2 days. Review of Systems: Ambulation impaired in wheelchair. No CV, , pulmonary, eye system symptoms on review. She does have significant tremors consequent to extrapyramidal side effects from antipsychotics. Mental Status Exam: The patient is reasonably oriented. Speech coherent. Abstraction fair. Computation impaired. Language function intact. Mood and affect quite labile, tearful, anxious, crying at times, grandiose and hyperverbal at other times. Laboratory Data: Reviewed. Impression: Schizoaffective disorder bipolar type, mixed with psychotic features. Anxiety disorder unspecified. Impulse control disorder unspecified. Plan: Continue current psychotropics. Check valproic acid level. Consider Clozaril to simplify her antipsychotic regimen and hopefully be able to reduce some of her parkinsonian medications as well. Assessment: Vital Signs/I&O: Vital Signs Date Time Temp Pulse Resp B/P (MAP) Pulse Ox O2 Delivery O2 Flow Rate FiO2 03/17/21 05:45 96.7 67 18 140/83 (102) 97 Room Air 03/14/21 22:27 94.0 I & O 03/16/21 03/16/21 03/17/21 14:59 22:59 06:59 Intake Total 600 ml 480 ml Balance 600 ml 480 ml Labs: Laboratory Tests Test 03/17/21 07:25 Glucose (Fingerstick) 112 mg/dL (70-99) H Current Medications: Meds: Laboratory Tests Test 03/17/21 07:25 Glucose (Fingerstick) 112 mg/dL Current Medications Medications (Trade) Dose Ordered Sig/Arnold Route PRN Reason Start Time Stop Time Status Last Admin Dose Admin Acetaminophen (Tylenol) 650 mg PRN Q6HRS PRN PO MILD PAIN / TEMP > 100.3'F 03/14/21 20:45 Multi-Ingredient Ointment (Analgesic [place]) 1 shwetha PRN QID PRN TP MUSCLE PAIN 03/14/21 20:45 Al Hydroxide/Mg Hydroxide (Mylanta Plus Xs) 15 ml PRN AFTMEALHC PRN PO DYSPEPSIA 03/14/21 20:45 Magnesium Hydroxide (Milk Of Magnesia) 2,400 mg PRN QHS PRN PO CONSTIPATION 03/14/21 20:45 Acetaminophen (Tylenol) 650 mg TID PRN PO Back Pain 03/14/21 21:45 UNV Ascorbic Acid (Vitamin C) 500 mg BID PO 03/15/21 09:00 03/16/21 19:56 Aspirin (Aspirin Chewable) 81 mg DAILY PO 03/15/21 09:00 03/16/21 08:34 Atorvastatin Calcium (Lipitor) 20 mg DAILY PO 03/15/21 09:00 03/16/21 08:35 Carbidopa/Levodopa (Sinemet 10/100) 1 tab TID PO 03/14/21 23:00 03/16/21 19:56 Vitamin D (Vitamin D3) 50,000 unit QWE PO 03/20/21 16:00 Ferrous Sulfate (Feosol) 325 mg BID PO 03/15/21 09:00 03/16/21 19:56 Furosemide (Lasix) 20 mg DAILY PO 03/15/21 09:00 03/16/21 08:35 Gabapentin (Neurontin Oral Soln) 150 mg BID@1400,2200 PO 03/14/21 23:00 03/16/21 13:20 DC 03/14/21 23:14 Lisinopril (Prinivil) 10 mg DAILY PO 03/15/21 09:00 03/16/21 08:35 Metformin HCl (Glucophage) 500 mg BIDWMEALS PO 03/15/21 08:00 03/16/21 17:00 Metoprolol Tartrate (Lopressor) 12.5 mg BID PO 03/14/21 23:00 03/16/21 19:57 Tramadol HCl (Ultram) 50 mg PRN Q6HRS PRN PO PAIN 03/14/21 21:45 03/16/21 08:30 Celecoxib (CeleBREX) 200 mg DAILY PO 03/15/21 09:00 03/16/21 08:34 Lactobacillus Rhamnosus (Culturelle) 1 cap BID PO 03/14/21 23:00 03/16/21 19:55 Pantoprazole Sodium (Protonix) 40 mg DAILY PO 03/15/21 09:00 03/16/21 08:35 Potassium Chloride (Klor-Con) 10 meq DAILY PO 03/15/21 09:00 03/16/21 08:35 Trolamine Salicylate (Myoplex) 1 shwetha TID TP 03/15/21 09:00 03/16/21 19:59 Benztropine Mesylate (Cogentin) 1 mg BID PO 03/14/21 23:00 03/16/21 19:56 Clonazepam (KlonoPIN) 2 mg BID PO 03/14/21 23:00 03/16/21 16:48 DC 03/16/21 09:00 Divalproex Sodium (Depakote Er) 1,000 mg BID PO 03/14/21 23:00 03/16/21 19:55 Fluphenazine HCl (Prolixin) 15 mg BID PO 03/14/21 23:00 03/16/21 19:57 Lorazepam (Ativan) 1 mg TID PO 03/14/21 23:00 03/16/21 18:45 DC 03/16/21 14:00 Risperidone (RisperDAL) 2 mg DAILY@1400 PO 03/15/21 14:00 03/16/21 14:00 Risperidone (RisperDAL) 4 mg QHS PO 03/14/21 23:00 03/16/21 19:56 Nicotine (Nicoderm Cq 21mg Patch) 1 patch DAILY TD 03/15/21 09:00 03/16/21 08:36 Gabapentin (Neurontin) 100 mg TID PO 03/16/21 14:00 03/16/21 19:56 Ropinirole HCl (Requip) 0.5 mg TID PO 03/16/21 21:00 03/16/21 19:56 Clonazepam (KlonoPIN) 2 mg HS PO 03/16/21 21:00 03/19/21 21:01 03/16/21 19:57 Clonazepam (KlonoPIN) 1.5 mg DAILY PO 03/17/21 09:00 03/23/21 08:00 Clonazepam (KlonoPIN) 1 mg DAILY PO 03/23/21 09:00 03/28/21 09:01 Clonazepam (KlonoPIN) 0.5 mg DAILY PO 03/29/21 09:00 04/03/21 09:01 Clonazepam (KlonoPIN) 1.5 mg HS PO 03/20/21 21:00 03/25/21 21:01 Clonazepam (KlonoPIN) 1 mg QHS PO 03/26/21 21:00 03/31/21 21:01 Clonazepam (KlonoPIN) 0.5 mg HS PO 04/01/21 21:00 04/06/21 21:01 Lorazepam (Ativan) 1 mg BID PO 03/17/21 21:00 03/19/21 21:01 Lorazepam (Ativan) 1 mg DAILY PO 03/20/21 09:00 03/22/21 08:59 Current Medications Medications (Trade) Dose Ordered Sig/Arnold Route PRN Reason Start Time Stop Time Status Last Admin Dose Admin Gabapentin (Neurontin) 100 mg TID PO 03/16/21 14:00 03/16/21 19:56 Ropinirole HCl (Requip) 0.5 mg TID PO 03/16/21 21:00 03/16/21 19:56 Clonazepam (KlonoPIN) 2 mg HS PO 03/16/21 21:00 03/19/21 21:01 03/16/21 19:57 I have reviewed the current psychotropics carefully including drug interactions. Risk benefit ratio favors no change other than as noted in my dictated progress note. Diagnosis: Problems: (1) Anxiety disorder (2) Impulse control disorder (3) Schizoaffective disorder, chronic condition with acute exacerbation (4) Psychosis, atypical BESSIE SOLORIO MD Mar 17, 2021 08:04
[2021-03-17] MEDS: TROLAMINE SALICYLATE 10% TOPICAL CREAM 85GM JAR. TP SCH ×4 (09:00→21:42)
[2021-03-17] MEDS: GABAPENTIN 100 MG CAPSULE. PO SCH ×4 (09:00→21:00)
[2021-03-17] MEDS: CARBIDOPA/LEVODOPA 10/100MG TABLET PO SCH ×4 (09:00→21:00)
[2021-03-17] MEDS: rOPINIRole 0.5 MG TABLET. PO SCH ×4 (09:00→21:00)
--- NOTE | 2021-03-17 09:02 | PDOC ---
Exam Note: Timothy Note: This note is a late entry for 03/16/2021 covers elements not covered in my initial note. Subjective: The patient was seen individually in the evening of 03/16/2021 with Temitope DORAN, discussed and reviewed the chart. She slept 8-1/4 hours previous night. The patient was seen by Dr. Kyle, Neurology for her tremors and started on ReQuip 0.5 mg t.i.d. and gabapentin changed to capsules for tolerability. She remains anxious, restless with ongoing mood lability, paranoia. Review of Systems: Ambulation impaired in wheelchair. No CV, , pulmonary, eye system symptoms on review. She does have significant hand tremors consequent to extrapyramidal side effects from antipsychotics. Mental Status Exam: The patient is oriented to herself and situation. Speech coherent, can be a little pressured at times. Abstraction fair. Computation impaired. Language function intact. Attention span short. Mood and affect remains labile. Laboratory Data: Reviewed. Impression: Schizoaffective disorder bipolar type, mixed with psychotic features. Anxiety disorder unspecified. Impulse control disorder unspecified. Plan: Continue current psychotropics. Valproic acid level today is 92 therapeutic. Maintain Depakote ER 1000 mg b.i.d. Repeat another level in 2 days. We will go ahead and taper the Klonopin by 0.5 mg a day every 3 days till it is discontinued. I was planning to start Clozaril 25 mg p.o. h.s. but pharmacy has indicated there is a contraindication with benzodiazepines. We will go ahead and taper and stop the Ativan. In preparation we are starting the Clozaril. Maintain rest of the psychotropics unchanged for now. Assessment: Vital Signs/I&O: Vital Signs Date Time Temp Pulse Resp B/P (MAP) Pulse Ox O2 Delivery O2 Flow Rate FiO2 03/17/21 05:45 96.7 67 18 140/83 (102) 97 Room Air 03/14/21 22:27 94.0 I & O 03/16/21 03/16/21 03/17/21 15:00 23:00 07:00 Intake Total 600 ml 480 ml Balance 600 ml 480 ml Labs: Laboratory Tests Test 03/17/21 07:25 Glucose (Fingerstick) 112 mg/dL (70-99) H Current Medications: Meds: Laboratory Tests Test 03/17/21 07:25 Glucose (Fingerstick) 112 mg/dL Current Medications Medications (Trade) Dose Ordered Sig/Arnold Route PRN Reason Start Time Stop Time Status Last Admin Dose Admin Acetaminophen (Tylenol) 650 mg PRN Q6HRS PRN PO MILD PAIN / TEMP > 100.3'F 03/14/21 20:45 Multi-Ingredient Ointment (Analgesic [place]) 1 shwetha PRN QID PRN TP MUSCLE PAIN 03/14/21 20:45 Al Hydroxide/Mg Hydroxide (Mylanta Plus Xs) 15 ml PRN AFTMEALHC PRN PO DYSPEPSIA 03/14/21 20:45 Magnesium Hydroxide (Milk Of Magnesia) 2,400 mg PRN QHS PRN PO CONSTIPATION 03/14/21 20:45 Acetaminophen (Tylenol) 650 mg TID PRN PO Back Pain 03/14/21 21:45 UNV Ascorbic Acid (Vitamin C) 500 mg BID PO 03/15/21 09:00 03/16/21 19:56 Aspirin (Aspirin Chewable) 81 mg DAILY PO 03/15/21 09:00 03/16/21 08:34 Atorvastatin Calcium (Lipitor) 20 mg DAILY PO 03/15/21 09:00 03/16/21 08:35 Carbidopa/Levodopa (Sinemet 10/100) 1 tab TID PO 03/14/21 23:00 03/16/21 19:56 Vitamin D (Vitamin D3) 50,000 unit QWE PO 03/20/21 16:00 Ferrous Sulfate (Feosol) 325 mg BID PO 03/15/21 09:00 03/16/21 19:56 Furosemide (Lasix) 20 mg DAILY PO 03/15/21 09:00 03/16/21 08:35 Gabapentin (Neurontin Oral Soln) 150 mg BID@1400,2200 PO 03/14/21 23:00 03/16/21 13:20 DC 03/14/21 23:14 Lisinopril (Prinivil) 10 mg DAILY PO 03/15/21 09:00 03/16/21 08:35 Metformin HCl (Glucophage) 500 mg BIDWMEALS PO 03/15/21 08:00 03/16/21 17:00 Metoprolol Tartrate (Lopressor) 12.5 mg BID PO 03/14/21 23:00 03/16/21 19:57 Tramadol HCl (Ultram) 50 mg PRN Q6HRS PRN PO PAIN 03/14/21 21:45 03/16/21 08:30 Celecoxib (CeleBREX) 200 mg DAILY PO 03/15/21 09:00 03/16/21 08:34 Lactobacillus Rhamnosus (Culturelle) 1 cap BID PO 03/14/21 23:00 03/16/21 19:55 Pantoprazole Sodium (Protonix) 40 mg DAILY PO 03/15/21 09:00 03/16/21 08:35 Potassium Chloride (Klor-Con) 10 meq DAILY PO 03/15/21 09:00 03/16/21 08:35 Trolamine Salicylate (Myoplex) 1 shwetha TID TP 03/15/21 09:00 03/16/21 19:59 Benztropine Mesylate (Cogentin) 1 mg BID PO 03/14/21 23:00 03/16/21 19:56 Clonazepam (KlonoPIN) 2 mg BID PO 03/14/21 23:00 03/16/21 16:48 DC 03/16/21 09:00 Divalproex Sodium (Depakote Er) 1,000 mg BID PO 03/14/21 23:00 03/16/21 19:55 Fluphenazine HCl (Prolixin) 15 mg BID PO 03/14/21 23:00 03/16/21 19:57 Lorazepam (Ativan) 1 mg TID PO 03/14/21 23:00 03/16/21 18:45 DC 03/16/21 14:00 Risperidone (RisperDAL) 2 mg DAILY@1400 PO 03/15/21 14:00 03/16/21 14:00 Risperidone (RisperDAL) 4 mg QHS PO 03/14/21 23:00 03/16/21 19:56 Nicotine (Nicoderm Cq 21mg Patch) 1 patch DAILY TD 03/15/21 09:00 03/16/21 08:36 Gabapentin (Neurontin) 100 mg TID PO 03/16/21 14:00 03/16/21 19:56 Ropinirole HCl (Requip) 0.5 mg TID PO 03/16/21 21:00 03/16/21 19:56 Clonazepam (KlonoPIN) 2 mg HS PO 03/16/21 21:00 03/19/21 21:01 03/16/21 19:57 Clonazepam (KlonoPIN) 1.5 mg DAILY PO 03/17/21 09:00 03/23/21 08:00 Clonazepam (KlonoPIN) 1 mg DAILY PO 03/23/21 09:00 03/28/21 09:01 Clonazepam (KlonoPIN) 0.5 mg DAILY PO 03/29/21 09:00 04/03/21 09:01 Clonazepam (KlonoPIN) 1.5 mg HS PO 03/20/21 21:00 03/25/21 21:01 Clonazepam (KlonoPIN) 1 mg QHS PO 03/26/21 21:00 03/31/21 21:01 Clonazepam (KlonoPIN) 0.5 mg HS PO 04/01/21 21:00 04/06/21 21:01 Lorazepam (Ativan) 1 mg BID PO 03/17/21 21:00 03/19/21 21:01 Lorazepam (Ativan) 1 mg DAILY PO 03/20/21 09:00 03/22/21 08:59 Current Medications Medications (Trade) Dose Ordered Sig/Arnold Route PRN Reason Start Time Stop Time Status Last Admin Dose Admin Gabapentin (Neurontin) 100 mg TID PO 03/16/21 14:00 03/16/21 19:56 Ropinirole HCl (Requip) 0.5 mg TID PO 03/16/21 21:00 03/16/21 19:56 Clonazepam (KlonoPIN) 2 mg HS PO 03/16/21 21:00 03/19/21 21:01 03/16/21 19:57 I have reviewed the current psychotropics carefully including drug interactions. Risk benefit ratio favors no change other than as noted in my dictated progress note. Diagnosis: Problems: (1) Anxiety disorder (2) Impulse control disorder (3) Schizoaffective disorder, chronic condition with acute exacerbation (4) Psychosis, atypical BESSIE SOLORIO MD Mar 17, 2021 09:02
[2021-03-17] MEDS: NICOTINE 21MG PATCH. TD SCH (11:52)
[2021-03-17] MEDS: LACTOBACILLUS RHAMNOSUS GG 1 CAPSULE. PO SCH ×3 (11:53→21:00)
[2021-03-17] MEDS: metFORMIN 500 MG TABLET PO SCH ×2 (11:53→17:41)
[2021-03-17] MEDS: LISINOPRIL 10 MG TABLET PO SCH (11:54)
[2021-03-17] MEDS: FERROUS SULFATE 325 MG TABLET. PO SCH ×3 (11:54→21:00)
[2021-03-17] MEDS: CELECOXIB 100 MG CAPSULE PO SCH (11:54)
[2021-03-17] MEDS: ATORVASTATIN CALCIUM 20 MG TABLET PO SCH (11:54)
[2021-03-17] MEDS: POTASSIUM CHLORIDE 10 MEQ TABLET.ER. PO SCH (11:55)
[2021-03-17] MEDS: ASPIRIN CHEWABLE 81 MG TABLET. PO SCH (11:55)
[2021-03-17] MEDS: FUROSEMIDE 20 MG TABLET PO SCH (11:55)
[2021-03-17] MEDS: PANTOPRAZOLE 40 MG TABLET. PO SCH (11:55)
[2021-03-17] MEDS: BENZTROPINE MESYLATE 1 MG TABLET PO SCH ×3 (11:55→21:00)
[2021-03-17] MEDS: METOPROLOL TART IMMED RELEASE 25 MG TABLET. PO SCH ×3 (11:56→21:00)
[2021-03-17] MEDS: ASCORBIC ACID 500 MG TABLET PO SCH ×3 (11:56→21:00)
[2021-03-17] MEDS: DIVALPROEX ER 500 MG TAB.ER.24H PO SCH ×3 (11:57→21:00)
[2021-03-17] MEDS: clonazePAM 1 MG TABLET PO SCH (12:06)
--- NOTE | 2021-03-17 12:21 | NUR ---
Pt slept in well past breakfast and into the later part of the morning before lunch. Pt delusional and attention seeking this morning. 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 She states that her name is "Ruthy Cochran." When asked by this nurse what her middle name is she replied "I'm not telling you." She is currently absent of SI/HI behaviors and absent of VH/AH. She is able to become compliant with medications taken whole if her Clonazepam is the last medication administered apart from all the others and you inform her that you will administer it after she takes the others. Plan of care continues, will pass to next shift.
[2021-03-17] MEDS: risperiDONE 2 MG TABLET. PO SCH ×3 (14:00→21:00)
--- NOTE | 2021-03-17 14:08 | NUR ---
During rounds with Dr Kyle pt was wheeling herself around the unit attempting to locate him, each time she found him she would c/o pain and tell him she wanted a Tramadol. Pt also told Charge Nurse Bruno that she was in pain and wanted morphine. Pt's insistence required multiple attempts at redirection and requests for patience from Dr Kyle and this nurse (who was accompanying him) d/t pt interrupting Dr's assessments of other patients. After rounds pt was located in her doorway, sobbing loudly about how she was in pain and needed Tramadol. This nurse went to obtain Tramadol while Dr Kyle spoke with her and reassured her. It took approx 3 minutes to pull the medication and return to pt. Dr Kyle was no longer present, and pt was observed to be smiling brightly with a large grin and laughing out loud. When asked what was so amusing she said "Another patient was in my bathroom." When this nurse commented that she was previously expressing agony and hysterical sobbing to Dr Kyle not even 5 minutes ago regarding pain and she was able to suddenly become very happy and giddy pt had to response or explanation. This nurse expressed apprehension about administering a strong opiate medication to a questionable pain report and offered scheduled muscle rub cream which she refused. This nurse returned the Tramadol to the Pyxis and pt resumed hysterical loud sobbing and referring to this nurse in curses and slurs. She soon quickly ceased sobbing in front of the nurse station, quietly wheeled herself into the day room where other patients and CNAs were located, and once again began to loudly sob and wail.
[2021-03-17 15:18] VITALS: BP 121/65
[2021-03-17] MEDS: ACETAMINOPHEN 325 MG TABLET PO PRN (15:50)
--- NOTE | 2021-03-17 15:50 | NUR ---
Pt continues to be fixated on Tramadol, continuously talking about it and requesting the medication from various staff members. PAINAD score is 0. Breathing even equal and unlabored, skin dry and color appropriate for ethnicity, absent of moaning/grimacing/crying, speech clear and articulate. Pt was assisted into standing position 2:1 for brief and pants change without c/o pain or discomfort. PRN Acetaminophen 650 mg PO administered. Pt identified the pills and replied, "That's not Tramadol." This nurse provided education that conservative pain relief measures would be attempted first prior to administering opiate medications. Pt took PRN medication without further complaints.
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
[2021-03-17] MEDS: clonazePAM 2 MG TABLET PO SCH ×2 (20:47→21:00)
[2021-03-17] MEDS: LORazepam 1 MG TABLET PO SCH ×2 (21:00→21:42)
--- NOTE | 2021-03-17 22:04 | PDOC ---
Exam Note: Timothy Note: Please also refer to the separate dictated note~for this date of service dictated separately.~Patient seen individually. Discussed the patient with Nursing staff reviewed the chart.~Reviewed interim history and current functioning. Reviewed vital signs,~Labs/ Radiology~and current medications noted below. Continue current treatment with the changes noted in the dictated addendum note Assessment: Vital Signs/I&O: Vital Signs Date Time Temp Pulse Resp B/P (MAP) Pulse Ox O2 Delivery O2 Flow Rate FiO2 03/17/21 20:47 83 121/65 03/17/21 15:18 97.2 18 97 03/17/21 05:45 Room Air 03/14/21 22:27 94.0 I & O 03/16/21 03/16/21 03/17/21 15:00 23:00 07:00 Intake Total 600 ml 480 ml Balance 600 ml 480 ml Labs: Laboratory Tests Test 03/17/21 07:25 Glucose (Fingerstick) 112 mg/dL (70-99) H Current Medications: Meds: Laboratory Tests Test 03/17/21 07:25 Glucose (Fingerstick) 112 mg/dL Current Medications Medications (Trade) Dose Ordered Sig/Arnold Route PRN Reason Start Time Stop Time Status Last Admin Dose Admin Acetaminophen (Tylenol) 650 mg PRN Q6HRS PRN PO MILD PAIN / TEMP > 100.3'F 03/14/21 20:45 03/17/21 15:50 Multi-Ingredient Ointment (Analgesic [place]) 1 shwetha PRN QID PRN TP MUSCLE PAIN 03/14/21 20:45 Al Hydroxide/Mg Hydroxide (Mylanta Plus Xs) 15 ml PRN AFTMEALHC PRN PO DYSPEPSIA 03/14/21 20:45 Magnesium Hydroxide (Milk Of Magnesia) 2,400 mg PRN QHS PRN PO CONSTIPATION 03/14/21 20:45 Acetaminophen (Tylenol) 650 mg TID PRN PO Back Pain 03/14/21 21:45 UNV Ascorbic Acid (Vitamin C) 500 mg BID PO 03/15/21 09:00 03/17/21 20:45 Aspirin (Aspirin Chewable) 81 mg DAILY PO 03/15/21 09:00 03/17/21 11:55 Atorvastatin Calcium (Lipitor) 20 mg DAILY PO 03/15/21 09:00 03/17/21 11:54 Carbidopa/Levodopa (Sinemet 10/100) 1 tab TID PO 03/14/21 23:00 03/17/21 20:46 Vitamin D (Vitamin D3) 50,000 unit QWE PO 03/20/21 16:00 Ferrous Sulfate (Feosol) 325 mg BID PO 03/15/21 09:00 03/17/21 20:46 Furosemide (Lasix) 20 mg DAILY PO 03/15/21 09:00 03/17/21 11:55 Gabapentin (Neurontin Oral Soln) 150 mg BID@1400,2200 PO 03/14/21 23:00 03/16/21 13:20 DC 03/14/21 23:14 Lisinopril (Prinivil) 10 mg DAILY PO 03/15/21 09:00 03/17/21 11:54 Metformin HCl (Glucophage) 500 mg BIDWMEALS PO 03/15/21 08:00 03/17/21 17:41 Metoprolol Tartrate (Lopressor) 12.5 mg BID PO 03/14/21 23:00 03/17/21 20:47 Tramadol HCl (Ultram) 50 mg PRN Q6HRS PRN PO PAIN 03/14/21 21:45 03/16/21 08:30 Celecoxib (CeleBREX) 200 mg DAILY PO 03/15/21 09:00 03/17/21 11:54 Lactobacillus Rhamnosus (Culturelle) 1 cap BID PO 03/14/21 23:00 03/17/21 20:46 Pantoprazole Sodium (Protonix) 40 mg DAILY PO 03/15/21 09:00 03/17/21 11:55 Potassium Chloride (Klor-Con) 10 meq DAILY PO 03/15/21 09:00 03/17/21 11:55 Trolamine Salicylate (Myoplex) 1 shwetha TID TP 03/15/21 09:00 03/17/21 21:42 Benztropine Mesylate (Cogentin) 1 mg BID PO 03/14/21 23:00 03/17/21 20:46 Clonazepam (KlonoPIN) 2 mg BID PO 03/14/21 23:00 03/16/21 16:48 DC 03/16/21 09:00 Divalproex Sodium (Depakote Er) 1,000 mg BID PO 03/14/21 23:00 03/17/21 20:46 Fluphenazine HCl (Prolixin) 15 mg BID PO 03/14/21 23:00 03/17/21 20:47 Lorazepam (Ativan) 1 mg TID PO 03/14/21 23:00 03/16/21 18:45 DC 03/16/21 14:00 Risperidone (RisperDAL) 2 mg DAILY@1400 PO 03/15/21 14:00 03/17/21 14:00 Risperidone (RisperDAL) 4 mg QHS PO 03/14/21 23:00 03/17/21 20:46 Nicotine (Nicoderm Cq 21mg Patch) 1 patch DAILY TD 03/15/21 09:00 03/17/21 11:52 Gabapentin (Neurontin) 100 mg TID PO 03/16/21 14:00 03/17/21 20:45 Ropinirole HCl (Requip) 0.5 mg TID PO 03/16/21 21:00 03/17/21 20:46 Clonazepam (KlonoPIN) 2 mg HS PO 03/16/21 21:00 03/19/21 21:01 03/17/21 20:47 Clonazepam (KlonoPIN) 1.5 mg DAILY PO 03/17/21 09:00 03/23/21 08:00 03/17/21 12:06 Clonazepam (KlonoPIN) 1 mg DAILY PO 03/23/21 09:00 03/28/21 09:01 Clonazepam (KlonoPIN) 0.5 mg DAILY PO 03/29/21 09:00 04/03/21 09:01 Clonazepam (KlonoPIN) 1.5 mg HS PO 03/20/21 21:00 03/25/21 21:01 Clonazepam (KlonoPIN) 1 mg QHS PO 03/26/21 21:00 03/31/21 21:01 Clonazepam (KlonoPIN) 0.5 mg HS PO 04/01/21 21:00 04/06/21 21:01 Lorazepam (Ativan) 1 mg BID PO 03/17/21 21:00 03/19/21 21:01 03/17/21 21:42 Lorazepam (Ativan) 1 mg DAILY PO 03/20/21 09:00 03/22/21 08:59 Current Medications Medications (Trade) Dose Ordered Sig/Arnold Route PRN Reason Start Time Stop Time Status Last Admin Dose Admin Clonazepam (KlonoPIN) 1.5 mg DAILY PO 03/17/21 09:00 03/23/21 08:00 03/17/21 12:06 Lorazepam (Ativan) 1 mg BID PO 03/17/21 21:00 03/19/21 21:01 03/17/21 21:42 I have reviewed the current psychotropics carefully including drug interactions. Risk benefit ratio favors no change other than as noted in my dictated progress note. Diagnosis: Problems: (1) Anxiety disorder (2) Impulse control disorder (3) Schizoaffective disorder, chronic condition with acute exacerbation (4) Psychosis, atypical BESSIE SOLORIO MD Mar 17, 2021 22:04
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
[2021-03-18 06:02] VITALS: BP 140/80
[2021-03-18 06:43] LABS: VAL ACID 84 mcg/mL (50-100)
[2021-03-18] MEDS: PANTOPRAZOLE 40 MG TABLET. PO SCH (08:13)
[2021-03-18] MEDS: DIVALPROEX ER 500 MG TAB.ER.24H PO SCH ×2 (08:13→21:08)
[2021-03-18] MEDS: CARBIDOPA/LEVODOPA 10/100MG TABLET PO SCH ×3 (08:14→21:07)
[2021-03-18] MEDS: POTASSIUM CHLORIDE 10 MEQ TABLET.ER. PO SCH (08:14)
[2021-03-18] MEDS: LACTOBACILLUS RHAMNOSUS GG 1 CAPSULE. PO SCH ×2 (08:14→21:07)
[2021-03-18] MEDS: GABAPENTIN 100 MG CAPSULE. PO SCH ×3 (08:15→21:13)
[2021-03-18] MEDS: ASPIRIN CHEWABLE 81 MG TABLET. PO SCH (08:15)
[2021-03-18] MEDS: ASCORBIC ACID 500 MG TABLET PO SCH ×2 (08:15→21:15)
[2021-03-18] MEDS: rOPINIRole 0.5 MG TABLET. PO SCH ×3 (08:15→21:07)
[2021-03-18] MEDS: metFORMIN 500 MG TABLET PO SCH ×2 (08:15→17:17)
[2021-03-18] MEDS: FERROUS SULFATE 325 MG TABLET. PO SCH ×2 (08:16→21:07)
[2021-03-18] MEDS: LISINOPRIL 10 MG TABLET PO SCH (08:17)
[2021-03-18] MEDS: FUROSEMIDE 20 MG TABLET PO SCH (08:18)
[2021-03-18] MEDS: NICOTINE 21MG PATCH. TD SCH (08:19)
[2021-03-18] MEDS: CELECOXIB 100 MG CAPSULE PO SCH (08:21)
[2021-03-18] MEDS: LORazepam 1 MG TABLET PO SCH ×2 (08:21→21:13)
[2021-03-18] MEDS: clonazePAM 1 MG TABLET PO SCH (08:22)
[2021-03-18] MEDS: BENZTROPINE MESYLATE 1 MG TABLET PO SCH ×2 (08:23→21:07)
[2021-03-18] MEDS: ATORVASTATIN CALCIUM 20 MG TABLET PO SCH (08:23)
[2021-03-18] MEDS: METOPROLOL TART IMMED RELEASE 25 MG TABLET. PO SCH ×2 (08:24→21:13)
[2021-03-18] MEDS: TROLAMINE SALICYLATE 10% TOPICAL CREAM 85GM JAR. TP SCH ×4 (08:25→21:00)
--- NOTE | 2021-03-18 08:33 | PDOC ---
Exam Note: Timothy Note: This note is a late entry for 03/17/2021 covers elements not covered in my initial note. Subjective: The patient was seen individually in the evening of 03/17/2021 with Erma DORAN, discussed and reviewed the chart. She slept 8 hours previous night. The patient has been extremely labile, psychotic, paranoid, tearful at times, grandiose, hyperverbal at times, non-compliant with assessments. She has been obsessively wanting tramadol and Dr. Rosas has addressed this and following Dr. Kyle, neurologist around the unit wanting tramadol. After Dr. Kyle left the unit, reportedly she was quite jovial, appropriate and then again became fixated shortly thereafter extremely labile mood, verbally abusive to nursing staff and then she was sobbing and wailing in quick succession. Review of Systems: Ambulation impaired in wheelchair. No CV, , pulmonary, eye system symptoms on review. Reliability varies. Mental Status Exam: The patient is oriented to herself and situation. Speech coherent rapid at times. Abstraction fair. Computation impaired. Language function intact. Attention span short. Mood and affect remains labile. She remains quite paranoid, suspicious, distractible. Laboratory Data: Reviewed. Impression: Schizoaffective disorder bipolar type, mixed with psychotic features. Anxiety disorder unspecified. Impulse control disorder unspecified. Plan: Continue current psychotropics. The patients Ativan is being titrated downwards till we stop it. Continue Cogentin, Sinemet, ReQuip. Klonopin again is being tapered, Depakote ER 1000 mg b.i.d., level therapeutic at 99. Maintain gabapentin, Risperdal. Adjust further as clinically indicated. Assessment: Vital Signs/I&O: Vital Signs Date Time Temp Pulse Resp B/P (MAP) Pulse Ox O2 Delivery O2 Flow Rate FiO2 03/18/21 08:24 79 140/80 03/18/21 06:02 97.6 16 96 03/17/21 05:45 Room Air 03/14/21 22:27 94.0 I & O 03/17/21 03/17/21 03/18/21 14:59 22:59 06:59 Intake Total 120 ml 480 ml Balance 120 ml 480 ml Labs: Laboratory Tests Test 03/18/21 06:09 03/18/21 07:27 Valproic Acid Level 84 mcg/mL (50-100) Valproic Acid Last Dose Date 03/17/21 Valproic Acid Last Dose Time 2100 Glucose (Fingerstick) 131 mg/dL (70-99) H Current Medications: Meds: Laboratory Tests Test 03/18/21 06:09 03/18/21 07:27 Valproic Acid (Depakene) Level 84 mcg/mL Valproic Acid Last Dose Date 03/17/21 Valproic Acid Last Dose Time 2100 Glucose (Fingerstick) 131 mg/dL Current Medications Medications (Trade) Dose Ordered Sig/Arnold Route PRN Reason Start Time Stop Time Status Last Admin Dose Admin Acetaminophen (Tylenol) 650 mg PRN Q6HRS PRN PO MILD PAIN / TEMP > 100.3'F 03/14/21 20:45 03/17/21 15:50 Multi-Ingredient Ointment (Analgesic [place]) 1 shwetha PRN QID PRN TP MUSCLE PAIN 03/14/21 20:45 Al Hydroxide/Mg Hydroxide (Mylanta Plus Xs) 15 ml PRN AFTMEALHC PRN PO DYSPEPSIA 03/14/21 20:45 Magnesium Hydroxide (Milk Of Magnesia) 2,400 mg PRN QHS PRN PO CONSTIPATION 03/14/21 20:45 Acetaminophen (Tylenol) 650 mg TID PRN PO Back Pain 03/14/21 21:45 UNV Ascorbic Acid (Vitamin C) 500 mg BID PO 03/15/21 09:00 03/18/21 08:15 Aspirin (Aspirin Chewable) 81 mg DAILY PO 03/15/21 09:00 03/18/21 08:15 Atorvastatin Calcium (Lipitor) 20 mg DAILY PO 03/15/21 09:00 03/18/21 08:23 Carbidopa/Levodopa (Sinemet 10/100) 1 tab TID PO 03/14/21 23:00 03/18/21 08:14 Vitamin D (Vitamin D3) 50,000 unit QWE PO 03/20/21 16:00 Ferrous Sulfate (Feosol) 325 mg BID PO 03/15/21 09:00 03/18/21 08:16 Furosemide (Lasix) 20 mg DAILY PO 03/15/21 09:00 03/18/21 08:18 Gabapentin (Neurontin Oral Soln) 150 mg BID@1400,2200 PO 03/14/21 23:00 03/16/21 13:20 DC 03/14/21 23:14 Lisinopril (Prinivil) 10 mg DAILY PO 03/15/21 09:00 03/18/21 08:17 Metformin HCl (Glucophage) 500 mg BIDWMEALS PO 03/15/21 08:00 03/18/21 08:15 Metoprolol Tartrate (Lopressor) 12.5 mg BID PO 03/14/21 23:00 03/18/21 08:24 Tramadol HCl (Ultram) 50 mg PRN Q6HRS PRN PO PAIN 03/14/21 21:45 03/16/21 08:30 Celecoxib (CeleBREX) 200 mg DAILY PO 03/15/21 09:00 03/18/21 08:21 Lactobacillus Rhamnosus (Culturelle) 1 cap BID PO 03/14/21 23:00 03/18/21 08:14 Pantoprazole Sodium (Protonix) 40 mg DAILY PO 03/15/21 09:00 03/18/21 08:13 Potassium Chloride (Klor-Con) 10 meq DAILY PO 03/15/21 09:00 03/18/21 08:14 Trolamine Salicylate (Myoplex) 1 shwetha TID TP 03/15/21 09:00 03/18/21 08:25 Benztropine Mesylate (Cogentin) 1 mg BID PO 03/14/21 23:00 03/18/21 08:23 Clonazepam (KlonoPIN) 2 mg BID PO 03/14/21 23:00 03/16/21 16:48 DC 03/16/21 09:00 Divalproex Sodium (Depakote Er) 1,000 mg BID PO 03/14/21 23:00 03/18/21 08:13 Fluphenazine HCl (Prolixin) 15 mg BID PO 03/14/21 23:00 03/18/21 08:25 Lorazepam (Ativan) 1 mg TID PO 03/14/21 23:00 03/16/21 18:45 DC 03/16/21 14:00 Risperidone (RisperDAL) 2 mg DAILY@1400 PO 03/15/21 14:00 03/17/21 14:00 Risperidone (RisperDAL) 4 mg QHS PO 03/14/21 23:00 03/16/21 19:56 Nicotine (Nicoderm Cq 21mg Patch) 1 patch DAILY TD 03/15/21 09:00 03/18/21 08:19 Gabapentin (Neurontin) 100 mg TID PO 03/16/21 14:00 03/18/21 08:15 Ropinirole HCl (Requip) 0.5 mg TID PO 03/16/21 21:00 03/18/21 08:15 Clonazepam (KlonoPIN) 2 mg HS PO 03/16/21 21:00 03/19/21 21:01 03/16/21 19:57 Clonazepam (KlonoPIN) 1.5 mg DAILY PO 03/17/21 09:00 03/23/21 08:00 03/18/21 08:22 Clonazepam (KlonoPIN) 1 mg DAILY PO 03/23/21 09:00 03/28/21 09:01 Clonazepam (KlonoPIN) 0.5 mg DAILY PO 03/29/21 09:00 04/03/21 09:01 Clonazepam (KlonoPIN) 1.5 mg HS PO 03/20/21 21:00 03/25/21 21:01 Clonazepam (KlonoPIN) 1 mg QHS PO 03/26/21 21:00 03/31/21 21:01 Clonazepam (KlonoPIN) 0.5 mg HS PO 04/01/21 21:00 04/06/21 21:01 Lorazepam (Ativan) 1 mg BID PO 03/17/21 21:00 03/19/21 21:01 03/18/21 08:21 Lorazepam (Ativan) 1 mg DAILY PO 03/20/21 09:00 03/22/21 08:59 Current Medications Medications (Trade) Dose Ordered Sig/Arnold Route PRN Reason Start Time Stop Time Status Last Admin Dose Admin Clonazepam (KlonoPIN) 1.5 mg DAILY PO 03/17/21 09:00 03/23/21 08:00 03/18/21 08:22 Lorazepam (Ativan) 1 mg BID PO 03/17/21 21:00 03/19/21 21:01 03/18/21 08:21 I have reviewed the current psychotropics carefully including drug interactions. Risk benefit ratio favors no change other than as noted in my dictated progress note. Diagnosis: Problems: (1) Anxiety disorder (2) Impulse control disorder (3) Schizoaffective disorder, chronic condition with acute exacerbation (4) Psychosis, atypical BESSIE SOLORIO MD Mar 18, 2021 08:33
[2021-03-18] MEDS: traMADol 50 MG TABLET PO PRN ×2 (09:36→21:23)
[2021-03-18] MEDS: risperiDONE 2 MG TABLET. PO SCH ×2 (14:09→21:08)
[2021-03-18 15:30] VITALS: BP 131/77
--- NOTE | 2021-03-18 16:14 | NUR ---
Nursing note: Pt has been med compliant and cooperative this shift. This AM she was demanding a PRN tramadol for 8/10 pain, but refused her scheduled pain relief cream stating "that stuff doesn't work". PRN administered with good effect. Pt stated she did not want to take her celebrex this AM because "I'm not a schizophrenic". Pt was compliant in taking all of her medications whole. She has been propelling herself around the unit in her wheelchair this shift. Will continue to monitor.
--- NOTE | 2021-03-18 19:43 | NUR ---
Upon entering patients room she was laying on her bed with a bath blanket rolled length odom wrapped around her neck, She was pulling on each end to tighten it and said "If I have to take meds I'm going to kill myself" blanket was removed pt placed on 1:[address] Maehr informed of SI with plan 1:1 observation ordered and nursing supervisor in charge informed of above. Pt placed in WC and taken to dayroom and denies making any suicidal attempt or statements.
[2021-03-18] MEDS: clonazePAM 2 MG TABLET PO SCH (21:13)
--- NOTE | 2021-03-18 21:51 | PDOC ---
Exam Note: Timothy Note: Please also refer to the separate dictated note~for this date of service dictated separately.~Patient seen individually. Discussed the patient with Nursing staff reviewed the chart.~Reviewed interim history and current functioning. Reviewed vital signs,~Labs/ Radiology~and current medications noted below. Continue current treatment with the changes noted in the dictated addendum note Assessment: Vital Signs/I&O: Vital Signs Date Time Temp Pulse Resp B/P (MAP) Pulse Ox O2 Delivery O2 Flow Rate FiO2 03/18/21 21:23 Room Air 03/18/21 21:13 79 131/77 03/18/21 15:30 97.5 16 94 03/18/21 09:36 99.0 I & O 03/17/21 03/17/21 03/18/21 15:00 23:00 07:00 Intake Total 120 ml 480 ml Balance 120 ml 480 ml Labs: Laboratory Tests Test 03/18/21 06:09 03/18/21 07:27 Valproic Acid Level 84 mcg/mL (50-100) Valproic Acid Last Dose Date 03/17/21 Valproic Acid Last Dose Time 2100 Glucose (Fingerstick) 131 mg/dL (70-99) H Current Medications: Meds: Laboratory Tests Test 03/18/21 06:09 03/18/21 07:27 Valproic Acid (Depakene) Level 84 mcg/mL Valproic Acid Last Dose Date 03/17/21 Valproic Acid Last Dose Time 2100 Glucose (Fingerstick) 131 mg/dL Current Medications Medications (Trade) Dose Ordered Sig/Arnold Route PRN Reason Start Time Stop Time Status Last Admin Dose Admin Acetaminophen (Tylenol) 650 mg PRN Q6HRS PRN PO MILD PAIN / TEMP > 100.3'F 03/14/21 20:45 03/17/21 15:50 Multi-Ingredient Ointment (Analgesic [place]) 1 shwetha PRN QID PRN TP MUSCLE PAIN 03/14/21 20:45 Al Hydroxide/Mg Hydroxide (Mylanta Plus Xs) 15 ml PRN AFTMEALHC PRN PO DYSPEPSIA 03/14/21 20:45 Magnesium Hydroxide (Milk Of Magnesia) 2,400 mg PRN QHS PRN PO CONSTIPATION 03/14/21 20:45 Acetaminophen (Tylenol) 650 mg TID PRN PO Back Pain 03/14/21 21:45 UNV Ascorbic Acid (Vitamin C) 500 mg BID PO 03/15/21 09:00 03/18/21 21:15 Aspirin (Aspirin Chewable) 81 mg DAILY PO 03/15/21 09:00 03/18/21 08:15 Atorvastatin Calcium (Lipitor) 20 mg DAILY PO 03/15/21 09:00 03/18/21 08:23 Carbidopa/Levodopa (Sinemet 10/100) 1 tab TID PO 03/14/21 23:00 03/18/21 21:07 Vitamin D (Vitamin D3) 50,000 unit QWE PO 03/20/21 16:00 Ferrous Sulfate (Feosol) 325 mg BID PO 03/15/21 09:00 03/18/21 21:07 Furosemide (Lasix) 20 mg DAILY PO 03/15/21 09:00 03/18/21 08:18 Gabapentin (Neurontin Oral Soln) 150 mg BID@1400,2200 PO 03/14/21 23:00 03/16/21 13:20 DC 03/14/21 23:14 Lisinopril (Prinivil) 10 mg DAILY PO 03/15/21 09:00 03/18/21 08:17 Metformin HCl (Glucophage) 500 mg BIDWMEALS PO 03/15/21 08:00 03/18/21 17:17 Metoprolol Tartrate (Lopressor) 12.5 mg BID PO 03/14/21 23:00 03/18/21 21:13 Tramadol HCl (Ultram) 50 mg PRN Q6HRS PRN PO PAIN 03/14/21 21:45 03/18/21 21:23 Celecoxib (CeleBREX) 200 mg DAILY PO 03/15/21 09:00 03/18/21 08:21 Lactobacillus Rhamnosus (Culturelle) 1 cap BID PO 03/14/21 23:00 03/18/21 21:07 Pantoprazole Sodium (Protonix) 40 mg DAILY PO 03/15/21 09:00 03/18/21 08:13 Potassium Chloride (Klor-Con) 10 meq DAILY PO 03/15/21 09:00 03/18/21 08:14 Trolamine Salicylate (Myoplex) 1 shwetha TID TP 03/15/21 09:00 03/16/21 19:59 Benztropine Mesylate (Cogentin) 1 mg BID PO 03/14/21 23:00 03/18/21 21:07 Clonazepam (KlonoPIN) 2 mg BID PO 03/14/21 23:00 03/16/21 16:48 DC 03/16/21 09:00 Divalproex Sodium (Depakote Er) 1,000 mg BID PO 03/14/21 23:00 03/18/21 21:08 Fluphenazine HCl (Prolixin) 15 mg BID PO 03/14/21 23:00 03/18/21 21:15 Lorazepam (Ativan) 1 mg TID PO 03/14/21 23:00 03/16/21 18:45 DC 03/16/21 14:00 Risperidone (RisperDAL) 2 mg DAILY@1400 PO 03/15/21 14:00 03/18/21 14:09 Risperidone (RisperDAL) 4 mg QHS PO 03/14/21 23:00 03/18/21 21:08 Nicotine (Nicoderm Cq 21mg Patch) 1 patch DAILY TD 03/15/21 09:00 03/18/21 08:19 Gabapentin (Neurontin) 100 mg TID PO 03/16/21 14:00 03/18/21 21:13 Ropinirole HCl (Requip) 0.5 mg TID PO 03/16/21 21:00 03/18/21 21:07 Clonazepam (KlonoPIN) 2 mg HS PO 03/16/21 21:00 03/19/21 21:01 03/18/21 21:13 Clonazepam (KlonoPIN) 1.5 mg DAILY PO 03/17/21 09:00 03/23/21 08:00 03/18/21 08:22 Clonazepam (KlonoPIN) 1 mg DAILY PO 03/23/21 09:00 03/28/21 09:01 Clonazepam (KlonoPIN) 0.5 mg DAILY PO 03/29/21 09:00 04/03/21 09:01 Clonazepam (KlonoPIN) 1.5 mg HS PO 03/20/21 21:00 03/25/21 21:01 Clonazepam (KlonoPIN) 1 mg QHS PO 03/26/21 21:00 03/31/21 21:01 Clonazepam (KlonoPIN) 0.5 mg HS PO 04/01/21:00 04/06/21 21:01 Lorazepam (Ativan) 1 mg BID PO 03/17/21 21:00 03/19/21 21:01 03/18/21 21:13 Lorazepam (Ativan) 1 mg DAILY PO 03/20/21 09:00 03/22/21 08:59 I have reviewed the current psychotropics carefully including drug interactions. Risk benefit ratio favors no change other than as noted in my dictated progress note. Diagnosis: Problems: (1) Anxiety disorder (2) Impulse control disorder (3) Schizoaffective disorder, chronic condition with acute exacerbation (4) Psychosis, atypical BESSIE SOLORIO MD Mar 18, 2021 21:51
[2021-03-19 06:12] VITALS: BP 155/89
[2021-03-19] MEDS: metFORMIN 500 MG TABLET PO SCH ×2 (08:10→17:14)
[2021-03-19] MEDS: CELECOXIB 100 MG CAPSULE PO SCH (08:11)
[2021-03-19] MEDS: PANTOPRAZOLE 40 MG TABLET. PO SCH (08:11)
[2021-03-19] MEDS: rOPINIRole 0.5 MG TABLET. PO SCH ×3 (08:11→21:00)
[2021-03-19] MEDS: LACTOBACILLUS RHAMNOSUS GG 1 CAPSULE. PO SCH ×2 (08:11→21:00)
[2021-03-19] MEDS: CARBIDOPA/LEVODOPA 10/100MG TABLET PO SCH ×3 (08:11→21:00)
[2021-03-19] MEDS: POTASSIUM CHLORIDE 10 MEQ TABLET.ER. PO SCH (08:12)
[2021-03-19] MEDS: clonazePAM 1 MG TABLET PO SCH (08:12)
[2021-03-19] MEDS: ASPIRIN CHEWABLE 81 MG TABLET. PO SCH (08:12)
[2021-03-19] MEDS: LORazepam 1 MG TABLET PO SCH ×2 (08:13→21:00)
[2021-03-19] MEDS: DIVALPROEX ER 500 MG TAB.ER.24H PO SCH ×2 (08:13→21:00)
[2021-03-19] MEDS: FERROUS SULFATE 325 MG TABLET. PO SCH ×2 (08:14→21:00)
[2021-03-19] MEDS: METOPROLOL TART IMMED RELEASE 25 MG TABLET. PO SCH ×2 (08:14→21:00)
[2021-03-19] MEDS: FUROSEMIDE 20 MG TABLET PO SCH (08:15)
[2021-03-19] MEDS: NICOTINE 21MG PATCH. TD SCH (08:15)
[2021-03-19] MEDS: LISINOPRIL 10 MG TABLET PO SCH (08:16)
[2021-03-19] MEDS: BENZTROPINE MESYLATE 1 MG TABLET PO SCH ×2 (08:16→21:00)
[2021-03-19] MEDS: GABAPENTIN 100 MG CAPSULE. PO SCH ×3 (08:20→21:00)
[2021-03-19] MEDS: ATORVASTATIN CALCIUM 20 MG TABLET PO SCH (08:22)
[2021-03-19] MEDS: ASCORBIC ACID 500 MG TABLET PO SCH ×2 (09:00→21:00)
[2021-03-19] MEDS: TROLAMINE SALICYLATE 10% TOPICAL CREAM 85GM JAR. TP SCH ×3 (09:00→21:00)
[2021-03-19] MEDS: traMADol 50 MG TABLET PO PRN (10:38)
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
[2021-03-19] MEDS: risperiDONE 2 MG TABLET. PO SCH ×2 (14:25→21:00)
[2021-03-19 15:49] VITALS: BP 124/80
[2021-03-19] MEDS: clonazePAM 2 MG TABLET PO SCH (21:00)
--- NOTE | 2021-03-19 21:58 | PDOC ---
Exam Note: Timothy Note: Please also refer to the separate dictated note~for this date of service dictated separately.~Patient seen individually. Discussed the patient with Nursing staff reviewed the chart.~Reviewed interim history and current functioning. Reviewed vital signs,~Labs/ Radiology~and current medications noted below. Continue current treatment with the changes noted in the dictated addendum note Assessment: Vital Signs/I&O: Vital Signs Date Time Temp Pulse Resp B/P (MAP) Pulse Ox O2 Delivery O2 Flow Rate FiO2 03/19/21 15:49 97.2 87 18 124/80 (95) 93 03/19/21 10:38 Room Air 99.0 I & O 03/18/21 03/18/21 03/19/21 15:00 23:00 07:00 Intake Total 720 ml 480 ml 240 ml Balance 720 ml 480 ml 240 ml Labs: Laboratory Tests Test 03/19/21 07:14 Glucose (Fingerstick) 119 mg/dL (70-99) H Current Medications: Meds: Laboratory Tests Test 03/19/21 07:14 Glucose (Fingerstick) 119 mg/dL Current Medications Medications (Trade) Dose Ordered Sig/Arnold Route PRN Reason Start Time Stop Time Status Last Admin Dose Admin Acetaminophen (Tylenol) 650 mg PRN Q6HRS PRN PO MILD PAIN / TEMP > 100.3'F 03/14/21 20:45 03/17/21 15:50 Multi-Ingredient Ointment (Analgesic [place]) 1 shwetha PRN QID PRN TP MUSCLE PAIN 03/14/21 20:45 Al Hydroxide/Mg Hydroxide (Mylanta Plus Xs) 15 ml PRN AFTMEALHC PRN PO DYSPEPSIA 03/14/21 20:45 Magnesium Hydroxide (Milk Of Magnesia) 2,400 mg PRN QHS PRN PO CONSTIPATION 03/14/21 20:45 Acetaminophen (Tylenol) 650 mg TID PRN PO Back Pain 03/14/21 21:45 UNV Ascorbic Acid (Vitamin C) 500 mg BID PO 03/15/21 09:00 03/19/21 09:00 Aspirin (Aspirin Chewable) 81 mg DAILY PO 03/15/21 09:00 03/19/21 08:12 Atorvastatin Calcium (Lipitor) 20 mg DAILY PO 03/15/21 09:00 03/19/21 08:22 Carbidopa/Levodopa (Sinemet 10/100) 1 tab TID PO 03/14/21 23:00 03/19/21 14:25 Vitamin D (Vitamin D3) 50,000 unit QWE PO 03/20/21 16:00 Ferrous Sulfate (Feosol) 325 mg BID PO 03/15/21 09:00 03/19/21 08:14 Furosemide (Lasix) 20 mg DAILY PO 03/15/21 09:00 03/19/21 08:15 Gabapentin (Neurontin Oral Soln) 150 mg BID@1400,2200 PO 03/14/21 23:00 03/16/21 13:20 DC 03/14/21 23:14 Lisinopril (Prinivil) 10 mg DAILY PO 03/15/21 09:00 03/19/21 08:16 Metformin HCl (Glucophage) 500 mg BIDWMEALS PO 03/15/21 08:00 03/19/21 17:14 Metoprolol Tartrate (Lopressor) 12.5 mg BID PO 03/14/21 23:00 03/19/21 08:14 Tramadol HCl (Ultram) 50 mg PRN Q6HRS PRN PO PAIN 03/14/21 21:45 03/19/21 10:38 Celecoxib (CeleBREX) 200 mg DAILY PO 03/15/21 09:00 03/19/21 08:11 Lactobacillus Rhamnosus (Culturelle) 1 cap BID PO 03/14/21 23:00 03/19/21 08:11 Pantoprazole Sodium (Protonix) 40 mg DAILY PO 03/15/21 09:00 03/19/21 08:11 Potassium Chloride (Klor-Con) 10 meq DAILY PO 03/15/21 09:00 03/19/21 08:12 Trolamine Salicylate (Myoplex) 1 shwetha TID TP 03/15/21 09:00 03/19/21 14:29 Benztropine Mesylate (Cogentin) 1 mg BID PO 03/14/21 23:00 03/19/21 08:16 Clonazepam (KlonoPIN) 2 mg BID PO 03/14/21 23:00 03/16/21 16:48 DC 03/16/21 09:00 Divalproex Sodium (Depakote Er) 1,000 mg BID PO 03/14/21 23:00 03/19/21 08:13 Fluphenazine HCl (Prolixin) 15 mg BID PO 03/14/21 23:00 03/19/21 08:21 Lorazepam (Ativan) 1 mg TID PO 03/14/21 23:00 03/16/21 18:45 DC 03/16/21 14:00 Risperidone (RisperDAL) 2 mg DAILY@1400 PO 03/15/21 14:00 03/19/21 14:25 Risperidone (RisperDAL) 4 mg QHS PO 03/14/21 23:00 03/18/21 21:08 Nicotine (Nicoderm Cq 21mg Patch) 1 patch DAILY TD 03/15/21 09:00 03/19/21 08:15 Gabapentin (Neurontin) 100 mg TID PO 03/16/21 14:00 03/19/21 14:18 Ropinirole HCl (Requip) 0.5 mg TID PO 03/16/21 21:00 03/19/21 14:25 Clonazepam (KlonoPIN) 2 mg HS PO 03/16/21 21:00 03/19/21 21:01 DC 03/18/21 21:13 Clonazepam (KlonoPIN) 1.5 mg DAILY PO 03/17/21 09:00 03/23/21 08:00 03/19/21 08:12 Clonazepam (KlonoPIN) 1 mg DAILY PO 03/23/21 09:00 03/28/21 09:01 Clonazepam (KlonoPIN) 0.5 mg DAILY PO 03/29/21 09:00 04/03/21 09:01 Clonazepam (KlonoPIN) 1.5 mg HS PO 03/20/21 21:00 03/25/21 21:01 Clonazepam (KlonoPIN) 1 mg QHS PO 03/26/21 21:00 03/31/21 21:01 Clonazepam (KlonoPIN) 0.5 mg HS PO 04/01/21 21:00 04/06/21 21:01 Lorazepam (Ativan) 1 mg BID PO 03/17/21 21:00 03/19/21 21:01 DC 03/19/21 08:13 Lorazepam (Ativan) 1 mg DAILY PO 03/20/21 09:00 03/22/21 08:59 I have reviewed the current psychotropics carefully including drug interactions. Risk benefit ratio favors no change other than as noted in my dictated progress note. Diagnosis: Problems: (1) Anxiety disorder (2) Impulse control disorder (3) Schizoaffective disorder, chronic condition with acute exacerbation (4) Psychosis, atypical BESSIE SOLORIO MD Mar 19, 2021 21:58
--- NOTE | 2021-03-20 02:26 | NUR ---
Last evening pt was in the day room when offered HS meds she asked if they had been changed when told they were the same as last night she refused to take meds tonight. Since going to bed she has been sleeping.
[2021-03-20 05:45] VITALS: BP 143/77
--- NOTE | 2021-03-20 07:58 | PDOC ---
Exam Note: Timothy Note: This note is a late entry for 03/18/2021 covers elements not covered in my initial note. Subjective: The patient was seen individually in the evening of 03/18/2021 with Amara DORAN, discussed and reviewed the chart. She slept 1-3/4 hours previous night. The patient remains quite labile in her mood, demanding tramadol repeatedly and persistently throughout the day. Dr. Rosas is addressing this but she is unable to accept it. She refused [place]. She has been somewhat delusional, believing she is the spouse of ex-President Bruno Cochran. Review of Systems: Ambulation impaired in wheelchair. No CV, , pulmonary, eye system symptoms on review. Mental Status Exam: The patient is alert and oriented. I met with her at length in her room. She is extremely labile, hyperverbal, paranoid, psychotic, talking about the above delusions and for an extended period of time demanding Ultram/tramadol as I met with her. She denied suicidal or homicidal ideation but then late at night around 10 p.m. I was called by the nursing staff. They had entered the patients room and found that she had a cloth tied around her neck and was tugging at it. She was placed on one-on-one status and had vague suicidal ideation. Her room is right across from the nursing station and later we might keep the door open at all time to observe her. She remains impulsive. She is also asking the nursing staff for morphine, sobbing, crying, using slurs about certain nursing staff, refusing physical assessment. Earlier she called 911 from the dining room, phoned during dinner. Abstraction fair. Computation impaired. Language function intact. Attention span short. Laboratory Data: Reviewed. Impression: Schizoaffective disorder bipolar type, mixed with psychotic features. Anxiety disorder unspecified. Impulse control disorder unspecified. Plan: Continue current psychotropics. We are tapering the Ativan and Klonopin in preparation for starting her on Clozaril per pharmacy consult since we are unable to use benzodiazepines with Clozaril due to drug interactions. Valproic acid level is 84 therapeutic. Maintain Depakote, Prolixin, gabapentin, Risperdal unchanged for now. She also remains on Sinemet and Cogentin. Assessment: Vital Signs/I&O: Vital Signs Date Time Temp Pulse Resp B/P (MAP) Pulse Ox O2 Delivery O2 Flow Rate FiO2 03/20/21 05:45 97.7 78 18 143/77 (99) 97 03/19/21 10:38 Room Air 99.0 I & O 03/19/21 03/19/21 03/20/21 14:59 22:59 06:59 Intake Total 720 ml 480 ml 240 ml Balance 720 ml 480 ml 240 ml Labs: Laboratory Tests Test 03/20/21 07:35 Glucose (Fingerstick) 115 mg/dL (70-99) H Current Medications: Meds: Laboratory Tests Test 03/20/21 07:35 Glucose (Fingerstick) 115 mg/dL Current Medications Medications (Trade) Dose Ordered Sig/Arnold Route PRN Reason Start Time Stop Time Status Last Admin Dose Admin Acetaminophen (Tylenol) 650 mg PRN Q6HRS PRN PO MILD PAIN / TEMP > 100.3'F 03/14/21 20:45 03/17/21 15:50 Multi-Ingredient Ointment (Analgesic [place]) 1 shwetha PRN QID PRN TP MUSCLE PAIN 03/14/21 20:45 Al Hydroxide/Mg Hydroxide (Mylanta Plus Xs) 15 ml PRN AFTMEALHC PRN PO DYSPEPSIA 03/14/21 20:45 Magnesium Hydroxide (Milk Of Magnesia) 2,400 mg PRN QHS PRN PO CONSTIPATION 03/14/21 20:45 Acetaminophen (Tylenol) 650 mg TID PRN PO Back Pain 03/14/21 21:45 UNV Ascorbic Acid (Vitamin C) 500 mg BID PO 03/15/21 09:00 03/19/21 09:00 Aspirin (Aspirin Chewable) 81 mg DAILY PO 03/15/21 09:00 03/19/21 08:12 Atorvastatin Calcium (Lipitor) 20 mg DAILY PO 03/15/21 09:00 03/19/21 08:22 Carbidopa/Levodopa (Sinemet 10/100) 1 tab TID PO 03/14/21 23:00 03/19/21 14:25 Vitamin D (Vitamin D3) 50,000 unit QWE PO 03/20/21 16:00 Ferrous Sulfate (Feosol) 325 mg BID PO 03/15/21 09:00 03/19/21 08:14 Furosemide (Lasix) 20 mg DAILY PO 03/15/21 09:00 03/19/21 08:15 Gabapentin (Neurontin Oral Soln) 150 mg BID@1400,2200 PO 03/14/21 23:00 03/16/21 13:20 DC 03/14/21 23:14 Lisinopril (Prinivil) 10 mg DAILY PO 03/15/21 09:00 03/19/21 08:16 Metformin HCl (Glucophage) 500 mg BIDWMEALS PO 03/15/21 08:00 03/19/21 17:14 Metoprolol Tartrate (Lopressor) 12.5 mg BID PO 03/14/21 23:00 03/19/21 08:14 Tramadol HCl (Ultram) 50 mg PRN Q6HRS PRN PO PAIN 03/14/21 21:45 03/19/21 10:38 Celecoxib (CeleBREX) 200 mg DAILY PO 03/15/21 09:00 03/19/21 08:11 Lactobacillus Rhamnosus (Culturelle) 1 cap BID PO 03/14/21 23:00 03/19/21 08:11 Pantoprazole Sodium (Protonix) 40 mg DAILY PO 03/15/21 09:00 03/19/21 08:11 Potassium Chloride (Klor-Con) 10 meq DAILY PO 03/15/21 09:00 03/19/21 08:12 Trolamine Salicylate (Myoplex) 1 shwetha TID TP 03/15/21 09:00 03/19/21 14:29 Benztropine Mesylate (Cogentin) 1 mg BID PO 03/14/21 23:00 03/19/21 08:16 Clonazepam (KlonoPIN) 2 mg BID PO 03/14/21 23:00 03/16/21 16:48 DC 03/16/21 09:00 Divalproex Sodium (Depakote Er) 1,000 mg BID PO 03/14/21 23:00 03/19/21 08:13 Fluphenazine HCl (Prolixin) 15 mg BID PO 03/14/21 23:00 03/19/21 08:21 Lorazepam (Ativan) 1 mg TID PO 03/14/21 23:00 03/16/21 18:45 DC 03/16/21 14:00 Risperidone (RisperDAL) 2 mg DAILY@1400 PO 03/15/21 14:00 03/19/21 14:25 Risperidone (RisperDAL) 4 mg QHS PO 03/14/21 23:00 03/18/21 21:08 Nicotine (Nicoderm Cq 21mg Patch) 1 patch DAILY TD 03/15/21 09:00 03/19/21 08:15 Gabapentin (Neurontin) 100 mg TID PO 03/16/21 14:00 03/19/21 14:18 Ropinirole HCl (Requip) 0.5 mg TID PO 03/16/21 21:00 03/19/21 14:25 Clonazepam (KlonoPIN) 2 mg HS PO 03/16/21 21:00 03/19/21 21:01 DC 03/18/21 21:13 Clonazepam (KlonoPIN) 1.5 mg DAILY PO 03/17/21 09:00 03/23/21 08:00 03/19/21 08:12 Clonazepam (KlonoPIN) 1 mg DAILY PO 03/23/21 09:00 03/28/21 09:01 Clonazepam (KlonoPIN) 0.5 mg DAILY PO 03/29/21 09:00 04/03/21 09:01 Clonazepam (KlonoPIN) 1.5 mg HS PO 03/20/21 21:00 03/25/21 21:01 Clonazepam (KlonoPIN) 1 mg QHS PO 03/26/21 21:00 03/31/21 21:01 Clonazepam (KlonoPIN) 0.5 mg HS PO 04/01/21 21:00 04/06/21 21:01 Lorazepam (Ativan) 1 mg BID PO 03/17/21 21:00 03/19/21 21:01 DC 03/19/21 08:13 Lorazepam (Ativan) 1 mg DAILY PO 03/20/21 09:00 03/22/21 08:59 I have reviewed the current psychotropics carefully including drug interactions. Risk benefit ratio favors no change other than as noted in my dictated progress note. Diagnosis: Problems: (1) Anxiety disorder (2) Impulse control disorder (3) Schizoaffective disorder, chronic condition with acute exacerbation BESSIE SOLORIO MD Mar 20, 2021 07:58
--- NOTE | 2021-03-20 08:16 | PDOC ---
Exam Note: Timothy Note: This note is a late entry for 03/19/2021 covers elements not covered in my initial note. Subjective: The patient was seen individually in the evening of 03/19/2021 with Amara DORAN, discussed and reviewed the chart. She slept 5-3/4 hours previous night. Initially the patient was on one-one-one status starting last night but late this evening nursing staff called me. She had not made any active suicidal statements and we will discontinue the one-on-one status. Her room is right across the nursing station. We will keep the door open at all times. She remains obsessed about wanting Ultram. Her benzodiazepines are being tapered so that we can start Clozaril as pharmacist had recommended there is a drug interaction between Clozaril and benzodiazepines. Review of Systems: Ambulation impaired in wheelchair. No CV, , pulmonary, eye system symptoms on review. Mental Status Exam: The patient is alert and oriented. She was seen in the dayroom. Speech moderate latency, at times pressured. Abstraction fair. Computation impaired. Language function intact. She has vague somatic symptoms, weakness of her arms. No active suicidal ideation. Laboratory Data: Reviewed. Impression: Schizoaffective disorder bipolar type, mixed with psychotic features. Anxiety disorder unspecified. Impulse control disorder unspecified. Plan: Continue current psychotropics. Taper and stop the benzodiazepines and then start Clozaril. Assessment: Vital Signs/I&O: Vital Signs Date Time Temp Pulse Resp B/P (MAP) Pulse Ox O2 Delivery O2 Flow Rate FiO2 03/20/21 05:45 97.7 78 18 143/77 (99) 97 03/19/21 10:38 Room Air 99.0 I & O 03/19/21 03/19/21 03/20/21 15:00 23:00 07:00 Intake Total 720 ml 480 ml 240 ml Balance 720 ml 480 ml 240 ml Labs: Laboratory Tests Test 03/20/21 07:35 Glucose (Fingerstick) 115 mg/dL (70-99) H Current Medications: Meds: Laboratory Tests Test 03/20/21 07:35 Glucose (Fingerstick) 115 mg/dL Current Medications Medications (Trade) Dose Ordered Sig/Arnold Route PRN Reason Start Time Stop Time Status Last Admin Dose Admin Acetaminophen (Tylenol) 650 mg PRN Q6HRS PRN PO MILD PAIN / TEMP > 100.3'F 03/14/21 20:45 03/17/21 15:50 Multi-Ingredient Ointment (Analgesic [place]) 1 shwetha PRN QID PRN TP MUSCLE PAIN 03/14/21 20:45 Al Hydroxide/Mg Hydroxide (Mylanta Plus Xs) 15 ml PRN AFTMEALHC PRN PO DYSPEPSIA 03/14/21 20:45 Magnesium Hydroxide (Milk Of Magnesia) 2,400 mg PRN QHS PRN PO CONSTIPATION 03/14/21 20:45 Acetaminophen (Tylenol) 650 mg TID PRN PO Back Pain 03/14/21 21:45 UNV Ascorbic Acid (Vitamin C) 500 mg BID PO 03/15/21 09:00 03/19/21 09:00 Aspirin (Aspirin Chewable) 81 mg DAILY PO 03/15/21 09:00 03/19/21 08:12 Atorvastatin Calcium (Lipitor) 20 mg DAILY PO 03/15/21 09:00 03/19/21 08:22 Carbidopa/Levodopa (Sinemet 10/100) 1 tab TID PO 03/14/21 23:00 03/19/21 14:25 Vitamin D (Vitamin D3) 50,000 unit QWE PO 03/20/21 16:00 Ferrous Sulfate (Feosol) 325 mg BID PO 03/15/21 09:00 03/19/21 08:14 Furosemide (Lasix) 20 mg DAILY PO 03/15/21 09:00 03/19/21 08:15 Gabapentin (Neurontin Oral Soln) 150 mg BID@1400,2200 PO 03/14/21 23:00 03/16/21 13:20 DC 03/14/21 23:14 Lisinopril (Prinivil) 10 mg DAILY PO 03/15/21 09:00 03/19/21 08:16 Metformin HCl (Glucophage) 500 mg BIDWMEALS PO 03/15/21 08:00 03/19/21 17:14 Metoprolol Tartrate (Lopressor) 12.5 mg BID PO 03/14/21 23:00 03/19/21 08:14 Tramadol HCl (Ultram) 50 mg PRN Q6HRS PRN PO PAIN 03/14/21 21:45 03/19/21 10:38 Celecoxib (CeleBREX) 200 mg DAILY PO 03/15/21 09:00 03/19/21 08:11 Lactobacillus Rhamnosus (Culturelle) 1 cap BID PO 03/14/21 23:00 03/19/21 08:11 Pantoprazole Sodium (Protonix) 40 mg DAILY PO 03/15/21 09:00 03/19/21 08:11 Potassium Chloride (Klor-Con) 10 meq DAILY PO 03/15/21 09:00 03/19/21 08:12 Trolamine Salicylate (Myoplex) 1 shwetha TID TP 03/15/21 09:00 03/19/21 14:29 Benztropine Mesylate (Cogentin) 1 mg BID PO 03/14/21 23:00 03/19/21 08:16 Clonazepam (KlonoPIN) 2 mg BID PO 03/14/21 23:00 03/16/21 16:48 DC 03/16/21 09:00 Divalproex Sodium (Depakote Er) 1,000 mg BID PO 03/14/21 23:00 03/19/21 08:13 Fluphenazine HCl (Prolixin) 15 mg BID PO 03/14/21 23:00 03/19/21 08:21 Lorazepam (Ativan) 1 mg TID PO 03/14/21 23:00 03/16/21 18:45 DC 03/16/21 14:00 Risperidone (RisperDAL) 2 mg DAILY@1400 PO 03/15/21 14:00 03/19/21 14:25 Risperidone (RisperDAL) 4 mg QHS PO 03/14/21 23:00 03/18/21 21:08 Nicotine (Nicoderm Cq 21mg Patch) 1 patch DAILY TD 03/15/21 09:00 03/19/21 08:15 Gabapentin (Neurontin) 100 mg TID PO 03/16/21 14:00 03/19/21 14:18 Ropinirole HCl (Requip) 0.5 mg TID PO 03/16/21 21:00 03/19/21 14:25 Clonazepam (KlonoPIN) 2 mg HS PO 03/16/21 21:00 03/19/21 21:01 DC 03/18/21 21:13 Clonazepam (KlonoPIN) 1.5 mg DAILY PO 03/17/21 09:00 03/23/21 08:00 03/19/21 08:12 Clonazepam (KlonoPIN) 1 mg DAILY PO 03/23/21 09:00 03/28/21 09:01 Clonazepam (KlonoPIN) 0.5 mg DAILY PO 03/29/21 09:00 04/03/21 09:01 Clonazepam (KlonoPIN) 1.5 mg HS PO 03/20/21 21:00 03/25/21 21:01 Clonazepam (KlonoPIN) 1 mg QHS PO 03/26/21 21:00 03/31/21 21:01 Clonazepam (KlonoPIN) 0.5 mg HS PO 04/01/21 21:00 04/06/21 21:01 Lorazepam (Ativan) 1 mg BID PO 03/17/21 21:00 03/19/21 21:01 DC 03/19/21 08:13 Lorazepam (Ativan) 1 mg DAILY PO 03/20/21 09:00 03/22/21 08:59 I have reviewed the current psychotropics carefully including drug interactions. Risk benefit ratio favors no change other than as noted in my dictated progress note. Diagnosis: Problems: (1) Anxiety disorder (2) Impulse control disorder (3) Schizoaffective disorder, chronic condition with acute exacerbation BESSIE SOLORIO MD Mar 20, 2021 08:16
[2021-03-20] MEDS: TROLAMINE SALICYLATE 10% TOPICAL CREAM 85GM JAR. TP SCH ×3 (09:00→21:00)
[2021-03-20] MEDS: GABAPENTIN 100 MG CAPSULE. PO SCH ×3 (09:11→21:00)
[2021-03-20] MEDS: LACTOBACILLUS RHAMNOSUS GG 1 CAPSULE. PO SCH ×2 (09:11→21:00)
[2021-03-20] MEDS: FUROSEMIDE 20 MG TABLET PO SCH (09:11)
[2021-03-20] MEDS: CARBIDOPA/LEVODOPA 10/100MG TABLET PO SCH ×3 (09:11→21:00)
[2021-03-20] MEDS: rOPINIRole 0.5 MG TABLET. PO SCH ×3 (09:11→21:00)
[2021-03-20] MEDS: ASPIRIN CHEWABLE 81 MG TABLET. PO SCH (09:11)
[2021-03-20] MEDS: CELECOXIB 100 MG CAPSULE PO SCH (09:11)
[2021-03-20] MEDS: DIVALPROEX ER 500 MG TAB.ER.24H PO SCH ×2 (09:12→21:00)
[2021-03-20] MEDS: LISINOPRIL 10 MG TABLET PO SCH (09:12)
[2021-03-20] MEDS: BENZTROPINE MESYLATE 1 MG TABLET PO SCH ×2 (09:12→21:00)
[2021-03-20] MEDS: metFORMIN 500 MG TABLET PO SCH ×2 (09:12→17:33)
[2021-03-20] MEDS: PANTOPRAZOLE 40 MG TABLET. PO SCH (09:12)
[2021-03-20] MEDS: ASCORBIC ACID 500 MG TABLET PO SCH ×2 (09:13→21:00)
[2021-03-20] MEDS: POTASSIUM CHLORIDE 10 MEQ TABLET.ER. PO SCH (09:13)
[2021-03-20] MEDS: METOPROLOL TART IMMED RELEASE 25 MG TABLET. PO SCH ×2 (09:13→21:00)
[2021-03-20] MEDS: FERROUS SULFATE 325 MG TABLET. PO SCH ×2 (09:13→21:00)
[2021-03-20] MEDS: ATORVASTATIN CALCIUM 20 MG TABLET PO SCH (09:13)
[2021-03-20] MEDS: LORazepam 1 MG TABLET PO SCH (09:18)
[2021-03-20] MEDS: NICOTINE 21MG PATCH. TD SCH (09:18)
[2021-03-20] MEDS: clonazePAM 1 MG TABLET PO SCH ×2 (09:19→21:00)
--- NOTE | 2021-03-20 11:32 | NUR ---
Pt remains labile and attention seeking this morning. While eating breakfast she would fluctuate between relative calmness and loud disruptive crying. After breakfast she left the dining room with a male patient who is from the same facility as her, both patients claim they are "boyfriend and girlfriend." At this time no fraternizing or sexual behaviors have been observed between the two of them. She was compliant with medications after multiple attempts at encouragement and medication education. Pt would fluctuate between medication seeking (specific medications, in particular Tramadol and Ativan) and medication refusal of her other scheduled medications. She remains in bed since after breakfast, she is not wanting to get out of bed on account of having a "broken hip." Pt presents with vague reports of pain, but PAINAD score remains 0. No SI/HI behaviors noted, no VH/AH reported. Pt's room door remains open d/t SI/SH behaviors displayed the previous night which required 1:1. Plan of care continues will pass to next shift.
[2021-03-20] MEDS: risperiDONE 2 MG TABLET. PO SCH ×2 (15:16→21:00)
[2021-03-20] MEDS: CHOLECALCIFEROL (VITAMIN D3) 50,000 UNIT CAPSULE PO SCH (15:16)
[2021-03-20 15:51] VITALS: BP 133/83
--- NOTE | 2021-03-20 21:51 | PDOC ---
Exam Note: Timothy Note: Please also refer to the separate dictated note~for this date of service dictated separately.~Patient seen individually. Discussed the patient with Nursing staff reviewed the chart.~Reviewed interim history and current functioning. Reviewed vital signs,~Labs/ Radiology~and current medications noted below. Continue current treatment with the changes noted in the dictated addendum note Assessment: Vital Signs/I&O: Vital Signs Date Time Temp Pulse Resp B/P (MAP) Pulse Ox O2 Delivery O2 Flow Rate FiO2 03/20/21 15:51 97.3 73 20 133/83 (100) 96 03/19/21 10:38 Room Air 99.0 I & O 03/19/21 03/19/21 03/20/21 14:59 22:59 06:59 Intake Total 720 ml 480 ml 240 ml Balance 720 ml 480 ml 240 ml Labs: Laboratory Tests Test 03/20/21 07:35 Glucose (Fingerstick) 115 mg/dL (70-99) H Current Medications: Meds: Laboratory Tests Test 03/20/21 07:35 Glucose (Fingerstick) 115 mg/dL Current Medications Medications (Trade) Dose Ordered Sig/Arnold Route PRN Reason Start Time Stop Time Status Last Admin Dose Admin Acetaminophen (Tylenol) 650 mg PRN Q6HRS PRN PO MILD PAIN / TEMP > 100.3'F 03/14/21 20:45 03/17/21 15:50 Multi-Ingredient Ointment (Analgesic [place]) 1 shwetha PRN QID PRN TP MUSCLE PAIN 03/14/21 20:45 Al Hydroxide/Mg Hydroxide (Mylanta Plus Xs) 15 ml PRN AFTMEALHC PRN PO DYSPEPSIA 03/14/21 20:45 Magnesium Hydroxide (Milk Of Magnesia) 2,400 mg PRN QHS PRN PO CONSTIPATION 03/14/21 20:45 Acetaminophen (Tylenol) 650 mg TID PRN PO Back Pain 03/14/21 21:45 UNV Ascorbic Acid (Vitamin C) 500 mg BID PO 03/15/21 09:00 03/20/21 09:13 Aspirin (Aspirin Chewable) 81 mg DAILY PO 03/15/21 09:00 03/20/21 09:11 Atorvastatin Calcium (Lipitor) 20 mg DAILY PO 03/15/21 09:00 03/20/21 09:13 Carbidopa/Levodopa (Sinemet 10/100) 1 tab TID PO 03/14/21 23:00 03/20/21 15:18 Vitamin D (Vitamin D3) 50,000 unit QWE PO 03/20/21 16:00 03/20/21 15:16 Ferrous Sulfate (Feosol) 325 mg BID PO 03/15/21 09:00 03/20/21 09:13 Furosemide (Lasix) 20 mg DAILY PO 03/15/21 09:00 03/20/21 09:11 Gabapentin (Neurontin Oral Soln) 150 mg BID@1400,2200 PO 03/14/21 23:00 03/16/21 13:20 DC 03/14/21 23:14 Lisinopril (Prinivil) 10 mg DAILY PO 03/15/21 09:00 03/20/21 09:12 Metformin HCl (Glucophage) 500 mg BIDWMEALS PO 03/15/21 08:00 03/20/21 17:33 Metoprolol Tartrate (Lopressor) 12.5 mg BID PO 03/14/21 23:00 03/20/21 09:13 Tramadol HCl (Ultram) 50 mg PRN Q6HRS PRN PO PAIN 03/14/21 21:45 03/19/21 10:38 Celecoxib (CeleBREX) 200 mg DAILY PO 03/15/21 09:00 03/20/21 09:11 Lactobacillus Rhamnosus (Culturelle) 1 cap BID PO 03/14/21 23:00 03/20/21 09:11 Pantoprazole Sodium (Protonix) 40 mg DAILY PO 03/15/21 09:00 03/20/21 09:12 Potassium Chloride (Klor-Con) 10 meq DAILY PO 03/15/21 09:00 03/20/21 09:13 Trolamine Salicylate (Myoplex) 1 shwetha TID TP 03/15/21 09:00 03/20/21 14:00 Benztropine Mesylate (Cogentin) 1 mg BID PO 03/14/21 23:00 03/20/21 09:12 Clonazepam (KlonoPIN) 2 mg BID PO 03/14/21 23:00 03/16/21 16:48 DC 03/16/21 09:00 Divalproex Sodium (Depakote Er) 1,000 mg BID PO 03/14/21 23:00 03/20/21 09:12 Fluphenazine HCl (Prolixin) 15 mg BID PO 03/14/21 23:00 03/20/21 09:12 Lorazepam (Ativan) 1 mg TID PO 03/14/21 23:00 03/16/21 18:45 DC 03/16/21 14:00 Risperidone (RisperDAL) 2 mg DAILY@1400 PO 03/15/21 14:00 03/20/21 15:16 Risperidone (RisperDAL) 4 mg QHS PO 03/14/21 23:00 03/18/21 21:08 Nicotine (Nicoderm Cq 21mg Patch) 1 patch DAILY TD 03/15/21 09:00 03/20/21 09:18 Gabapentin (Neurontin) 100 mg TID PO 03/16/21 14:00 03/20/21 09:18 Ropinirole HCl (Requip) 0.5 mg TID PO 03/16/21 21:00 03/20/21 15:15 Clonazepam (KlonoPIN) 2 mg HS PO 03/16/21 21:00 03/19/21 21:01 DC 03/18/21 21:13 Clonazepam (KlonoPIN) 1.5 mg DAILY PO 03/17/21 09:00 03/23/21 08:00 03/20/21 09:19 Clonazepam (KlonoPIN) 1 mg DAILY PO 03/23/21 09:00 03/28/21 09:01 Clonazepam (KlonoPIN) 0.5 mg DAILY PO 03/29/21 09:00 04/03/21 09:01 Clonazepam (KlonoPIN) 1.5 mg HS PO 03/20/21 21:00 03/25/21 21:01 Clonazepam (KlonoPIN) 1 mg QHS PO 03/26/21 21:00 03/31/21 21:01 Clonazepam (KlonoPIN) 0.5 mg HS PO 04/01/21 21:00 04/06/21 21:01 Lorazepam (Ativan) 1 mg BID PO 03/17/21 21:00 03/19/21 21:01 DC 03/19/21 08:13 Lorazepam (Ativan) 1 mg DAILY PO 03/20/21 09:00 03/22/21 08:59 03/20/21 09:18 Current Medications Medications (Trade) Dose Ordered Sig/Arnold Route PRN Reason Start Time Stop Time Status Last Admin Dose Admin Vitamin D (Vitamin D3) 50,000 unit QWE PO 03/20/21 16:00 03/20/21 15:16 Lorazepam (Ativan) 1 mg DAILY PO 03/20/21 09:00 03/22/21 08:59 03/20/21 09:18 I have reviewed the current psychotropics carefully including drug interactions. Risk benefit ratio favors no change other than as noted in my dictated progress note. Diagnosis: Problems: (1) Anxiety disorder (2) Impulse control disorder (3) Schizoaffective disorder, chronic condition with acute exacerbation BESSIE SOLORIO MD Mar 20, 2021 21:51
--- NOTE | 2021-03-21 01:28 | NUR ---
Nursing Note The patient was irritable and non compliant with assessments and medications. The patient stated "Those meds make me worse!" The patient specifically refused her carba dopa. This nurse attempted to provide education regarding her medications but the patient declined to listen to anything this nurse spoke. Patient is currently sleeping in her room.
[2021-03-21 05:49] VITALS: BP 154/90
--- NOTE | 2021-03-21 06:52 | PDOC ---
Exam Note: Timothy Note: This note is a late entry for 03/20/2021 covers elements not covered in my initial note. Subjective: The patient was seen individually in the evening of 03/20/2021 with Erma DORAN, discussed and reviewed the chart. She slept 8 hours previous night. The patient has had extreme mood lability. She is obsessed with wanting tramadol. There was another patient who was being admitted from her nursing facility and reportedly per nursing states she states he is her boyfriend and has been making advances to her. Review of Systems: Ambulation impaired in wheelchair. No CV, , pulmonary, eye system symptoms on review. Mental Status Exam: The patient is alert and oriented. She is hyperverbal, anxious, irritable, paranoid, distracted. Speech moderate latency. Abstraction fair. Computation impaired. Language function intact. She has vague somatic symptoms, weakness of her arms. No suicidal or homicidal ideation. Mood and affect labile. Laboratory Data: Reviewed. Impression: Schizoaffective disorder bipolar type, mixed with psychotic features. Anxiety disorder unspecified. Impulse control disorder unspecified. Plan: Continue current psychotropics. We are tapering and stopping the be nzodiazepines before we start Clozaril. Assessment: Vital Signs/I&O: Vital Signs Date Time Temp Pulse Resp B/P (MAP) Pulse Ox O2 Delivery O2 Flow Rate FiO2 03/21/21 05:49 97.5 70 18 154/90 (111) 97 03/19/21 10:38 Room Air 99.0 I & O 03/20/21 03/20/21 03/21/21 14:59 22:59 06:59 Intake Total 840 ml 480 ml 240 ml Balance 840 ml 480 ml 240 ml Labs: Laboratory Tests Test 03/20/21 07:35 Glucose (Fingerstick) 115 mg/dL (70-99) H Current Medications: Meds: Laboratory Tests Test 03/20/21 07:35 Glucose (Fingerstick) 115 mg/dL Current Medications Medications (Trade) Dose Ordered Sig/Arnold Route PRN Reason Start Time Stop Time Status Last Admin Dose Admin Acetaminophen (Tylenol) 650 mg PRN Q6HRS PRN PO MILD PAIN / TEMP > 100.3'F 03/14/21 20:45 03/17/21 15:50 Multi-Ingredient Ointment (Analgesic [place]) 1 shwetha PRN QID PRN TP MUSCLE PAIN 03/14/21 20:45 Al Hydroxide/Mg Hydroxide (Mylanta Plus Xs) 15 ml PRN AFTMEALHC PRN PO DYSPEPSIA 03/14/21 20:45 Magnesium Hydroxide (Milk Of Magnesia) 2,400 mg PRN QHS PRN PO CONSTIPATION 03/14/21 20:45 Acetaminophen (Tylenol) 650 mg TID PRN PO Back Pain 03/14/21 21:45 UNV Ascorbic Acid (Vitamin C) 500 mg BID PO 03/15/21 09:00 03/20/21 09:13 Aspirin (Aspirin Chewable) 81 mg DAILY PO 03/15/21 09:00 03/20/21 09:11 Atorvastatin Calcium (Lipitor) 20 mg DAILY PO 03/15/21 09:00 03/20/21 09:13 Carbidopa/Levodopa (Sinemet 10/100) 1 tab TID PO 03/14/21 23:00 03/20/21 15:18 Vitamin D (Vitamin D3) 50,000 unit QWE PO 03/20/21 16:00 03/20/21 15:16 Ferrous Sulfate (Feosol) 325 mg BID PO 03/15/21 09:00 03/20/21 09:13 Furosemide (Lasix) 20 mg DAILY PO 03/15/21 09:00 03/20/21 09:11 Gabapentin (Neurontin Oral Soln) 150 mg BID@1400,2200 PO 03/14/21 23:00 03/16/21 13:20 DC 03/14/21 23:14 Lisinopril (Prinivil) 10 mg DAILY PO 03/15/21 09:00 03/20/21 09:12 Metformin HCl (Glucophage) 500 mg BIDWMEALS PO 03/15/21 08:00 03/20/21 17:33 Metoprolol Tartrate (Lopressor) 12.5 mg BID PO 03/14/21 23:00 03/20/21 09:13 Tramadol HCl (Ultram) 50 mg PRN Q6HRS PRN PO PAIN 03/14/21 21:45 03/19/21 10:38 Celecoxib (CeleBREX) 200 mg DAILY PO 03/15/21 09:00 03/20/21 09:11 Lactobacillus Rhamnosus (Culturelle) 1 cap BID PO 03/14/21 23:00 03/20/21 09:11 Pantoprazole Sodium (Protonix) 40 mg DAILY PO 03/15/21 09:00 03/20/21 09:12 Potassium Chloride (Klor-Con) 10 meq DAILY PO 03/15/21 09:00 03/20/21 09:13 Trolamine Salicylate (Myoplex) 1 shwetha TID TP 03/15/21 09:00 03/20/21 14:00 Benztropine Mesylate (Cogentin) 1 mg BID PO 03/14/21 23:00 03/20/21 09:12 Clonazepam (KlonoPIN) 2 mg BID PO 03/14/21 23:00 03/16/21 16:48 DC 03/16/21 09:00 Divalproex Sodium (Depakote Er) 1,000 mg BID PO 03/14/21 23:00 03/20/21 09:12 Fluphenazine HCl (Prolixin) 15 mg BID PO 03/14/21 23:00 03/20/21 09:12 Lorazepam (Ativan) 1 mg TID PO 03/14/21 23:00 03/16/21 18:45 DC 03/16/21 14:00 Risperidone (RisperDAL) 2 mg DAILY@1400 PO 03/15/21 14:00 03/20/21 15:16 Risperidone (RisperDAL) 4 mg QHS PO 03/14/21 23:00 03/18/21 21:08 Nicotine (Nicoderm Cq 21mg Patch) 1 patch DAILY TD 03/15/21 09:00 03/20/21 09:18 Gabapentin (Neurontin) 100 mg TID PO 03/16/21 14:00 03/20/21 09:18 Ropinirole HCl (Requip) 0.5 mg TID PO 03/16/21 21:00 03/20/21 15:15 Clonazepam (KlonoPIN) 2 mg HS PO 03/16/21 21:00 03/19/21 21:01 DC 03/18/21 21:13 Clonazepam (KlonoPIN) 1.5 mg DAILY PO 03/17/21 09:00 03/23/21 08:00 03/20/21 09:19 Clonazepam (KlonoPIN) 1 mg DAILY PO 03/23/21 09:00 03/28/21 09:01 Clonazepam (KlonoPIN) 0.5 mg DAILY PO 03/29/21 09:00 04/03/21 09:01 Clonazepam (KlonoPIN) 1.5 mg HS PO 03/20/21 21:00 03/25/21 21:01 Clonazepam (KlonoPIN) 1 mg QHS PO 03/26/21 21:00 03/31/21 21:01 Clonazepam (KlonoPIN) 0.5 mg HS PO 04/01/21 21:00 04/06/21 21:01 Lorazepam (Ativan) 1 mg BID PO 03/17/21 21:00 03/19/21 21:01 DC 03/19/21 08:13 Lorazepam (Ativan) 1 mg DAILY PO 03/20/21 09:00 03/22/21 08:59 03/20/21 09:18 Current Medications Medications (Trade) Dose Ordered Sig/Arnold Route PRN Reason Start Time Stop Time Status Last Admin Dose Admin Vitamin D (Vitamin D3) 50,000 unit QWE PO 03/20/21 16:00 03/20/21 15:16 Lorazepam (Ativan) 1 mg DAILY PO 03/20/21 09:00 03/22/21 08:59 03/20/21 09:18 I have reviewed the current psychotropics carefully including drug interactions. Risk benefit ratio favors no change other than as noted in my dictated progress note. Diagnosis: Problems: (1) Anxiety disorder (2) Impulse control disorder (3) Schizoaffective disorder, chronic condition with acute exacerbation BESSIE SOLORIO MD Mar 21, 2021 06:52
[2021-03-21] MEDS: rOPINIRole 0.5 MG TABLET. PO SCH ×3 (08:32→20:41)
[2021-03-21] MEDS: ASPIRIN CHEWABLE 81 MG TABLET. PO SCH (08:32)
[2021-03-21] MEDS: POTASSIUM CHLORIDE 10 MEQ TABLET.ER. PO SCH (08:33)
[2021-03-21] MEDS: CARBIDOPA/LEVODOPA 10/100MG TABLET PO SCH ×3 (08:33→20:41)
[2021-03-21] MEDS: GABAPENTIN 100 MG CAPSULE. PO SCH ×3 (08:33→20:41)
[2021-03-21] MEDS: CELECOXIB 100 MG CAPSULE PO SCH (08:33)
[2021-03-21] MEDS: ATORVASTATIN CALCIUM 20 MG TABLET PO SCH (08:33)
[2021-03-21] MEDS: LACTOBACILLUS RHAMNOSUS GG 1 CAPSULE. PO SCH ×2 (08:33→20:41)
[2021-03-21] MEDS: DIVALPROEX ER 500 MG TAB.ER.24H PO SCH ×2 (08:34→20:42)
[2021-03-21] MEDS: FERROUS SULFATE 325 MG TABLET. PO SCH ×2 (08:34→20:42)
[2021-03-21] MEDS: BENZTROPINE MESYLATE 1 MG TABLET PO SCH ×2 (08:34→20:42)
[2021-03-21] MEDS: metFORMIN 500 MG TABLET PO SCH ×2 (08:34→17:16)
[2021-03-21] MEDS: ASCORBIC ACID 500 MG TABLET PO SCH ×2 (08:34→20:42)
[2021-03-21] MEDS: PANTOPRAZOLE 40 MG TABLET. PO SCH (08:35)
[2021-03-21] MEDS: FUROSEMIDE 20 MG TABLET PO SCH (08:35)
[2021-03-21] MEDS: METOPROLOL TART IMMED RELEASE 25 MG TABLET. PO SCH ×2 (08:35→20:42)
[2021-03-21] MEDS: LORazepam 1 MG TABLET PO SCH (08:36)
[2021-03-21] MEDS: LISINOPRIL 10 MG TABLET PO SCH (08:36)
[2021-03-21] MEDS: clonazePAM 1 MG TABLET PO SCH ×2 (08:36→20:41)
[2021-03-21] MEDS: NICOTINE 21MG PATCH. TD SCH (08:42)
[2021-03-21] MEDS: TROLAMINE SALICYLATE 10% TOPICAL CREAM 85GM JAR. TP SCH ×3 (08:43→21:00)
--- NOTE | 2021-03-21 12:25 | NUR ---
WEEKLY ACTIVITY THERAPY NOTE Date of Admission: 03/14/2021 Date of AT Assessment: 03/15 Precipitating behaviors that initiated intake and admission: crying fits, screaming, singing, labile mood, manic, insomnia, "wild eyed stare", eloped from facility, refusing medications, delusional- thinks staff and male peer are trying to have sex with her. Goal aimed: to increase engagement and socialization Initial Goal:Pt. will participate in at least one Activity Therapy group per day. Weekly progress towards goal: goal evaluation begins next week, 3/1 per day Group participation level: 2 mod, 1 full Weekly highlights: inspirational speech Thursday Behaviors observed: making claims about staff Thursday, distracting and labile during Thursday group Plan: no change to goal at this time Beneficial adaptations: music
[2021-03-21] MEDS: risperiDONE 2 MG TABLET. PO SCH ×2 (13:53→20:42)
[2021-03-21] MEDS: traMADol 50 MG TABLET PO PRN (13:55)
--- NOTE | 2021-03-21 14:30 | TX PLAN ---
Interdisciplinary Tx Plan Admission Information Mar 14, 2021 at 19:55 Legal Status (on Admission): Voluntary DPOA/Guardian Name: Coral Walters Contact Other Contact Name: Deshawn on Other Contact Verified Code Status: Full Code Allergies: Coded Allergies: haloperidol (Verified Allergy, Intermediate, 12/21/15) Diagnoses Primary Diagnosis: Schizoaffective D/O Bipolar type, mixed with psychotic features Reasons for Admission: Delusions, Sig. Change Sleep, Poor impulse control, Other Problem in Patient's Words: "I have nothing right now". Additional Admission Comments: According to the intake, pt is labile/manic AEB having crying fits, screaming then randomly singing, exit seeking, refusing cares, not sleeping, eloped and refusion meds. Pt is delusional thinking staff and male peer are trying to have sex with her. Problems Active Problems: resistive to cares labile delusional somatic complaints Inactive Problems: mostly medication compliant Pt Strengths/Limitations Ability for [place]: Poor Cognitive Functioning/Ability: Fair Communication Skills/Ability: Fair Financial Resources: Poor Insight/Judgement: Poor Intellectual Ability: Fair Physical Health: Poor Social Skills: Poor Stability in Family: Poor Stability in School/Work: Poor Verbal Skills: Fair Discharge Criteria Discharge Criteria: No need for close observ., Adequate arrangements @DC, Improved behavior, Improved mood/thought Preliminary Discharge Plan Preliminary DC Plan: Current Living Arrange. Special Precautions Fall Risk: Moderate Initial D/C Plan Pt to return to [facility] on once stable. Identified Discharge Needs: Psychiatric services Currently Utilized Resources Currently Utilized Resources/P: Primary Care Physician Referrals Community Resources: Psychiatric follow-up Identified Problems/Hx/Goals Objectives/Short-Term Goals Short Term Goals: Dec. Hallucination/Delus, Dec. Outbursts, Medication Stabilization, Monitor Med Effects, Promote Coping Skill, Other Short Term Goals in Patient's: N/A Interventions/Frequency Staff Interventions/Frequency&: Psychiatrist to assess pt at least 3x per week for medication management. Social Work to assess pt at least 2x per week to identify barriers to care and dishcarge planning goals. Nursing to assess medication effects, behavior modification and completion of 15 minute checks daily. 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 Pt is very labile AEB moods varying from screaming, crying, to laughing in one setting. Pt is medication compliant but can be verbally aggressive towards staff while taking them. Pt reports that she does not need all these medications especially those that relate to her blood pressure and just wants meds for her tremors. Pt has attended three groups with minimal to moderate participation. Pt does require redirection for her behaviors and made claims that staff were hurting her. Nursing reports making pt complete tasks on her own as she is able to do so, but pt refuses to do anything for her self (e.g. propel w/c, aid in transfers and toileting). As it stands, pt is on two separate benzodiazepines and will need to be off them in order to start Clozaril. Pt will return to [facility] on once she is stable; ELOS 14-21 days. KIMBERLY MCKEON Mar 21, 2021 14:30
--- NOTE | 2021-03-21 15:51 | NUR ---
Nursing Note: Pt remains labile this morning going from laughing to crying spells. She is medication compliant with a lot of encouragement from the nursing staff. Pt received a Tramadol this afternoon for pain in her back and arms. Pt has been in the day room socializing with others. She continues to have black and white thinking. Pt still states when getting medications that the only medications that help are the Klonopin and Lorazepam. Mood has been better this afternoon as she has been joking around with her peers.
[2021-03-21 15:56] VITALS: BP 107/71
--- NOTE | 2021-03-21 22:00 | PDOC ---
Exam Note: Timothy Note: Please also refer to the separate dictated note~for this date of service dictated separately.~Patient seen individually. Discussed the patient with Nursing staff reviewed the chart.~Reviewed interim history and current functioning. Reviewed vital signs,~Labs/ Radiology~and current medications noted below. Continue current treatment with the changes noted in the dictated addendum note Assessment: Vital Signs/I&O: Vital Signs Date Time Temp Pulse Resp B/P (MAP) Pulse Ox O2 Delivery O2 Flow Rate FiO2 03/21/21 20:42 61 107/71 03/21/21 15:56 97.6 18 97 Room Air 03/19/21 10:38 99.0 I & O 03/20/21 03/20/21 03/21/21 15:00 23:00 07:00 Intake Total 840 ml 480 ml 240 ml Balance 840 ml 480 ml 240 ml Labs: Laboratory Tests Test 03/21/21 07:31 Glucose (Fingerstick) 108 mg/dL (70-99) H Current Medications: Meds: Laboratory Tests Test 03/21/21 07:31 Glucose (Fingerstick) 108 mg/dL Current Medications Medications (Trade) Dose Ordered Sig/Arnold Route PRN Reason Start Time Stop Time Status Last Admin Dose Admin Acetaminophen (Tylenol) 650 mg PRN Q6HRS PRN PO MILD PAIN / TEMP > 100.3'F 03/14/21 20:45 03/17/21 15:50 Multi-Ingredient Ointment (Analgesic [place]) 1 shwetha PRN QID PRN TP MUSCLE PAIN 03/14/21 20:45 Al Hydroxide/Mg Hydroxide (Mylanta Plus Xs) 15 ml PRN AFTMEALHC PRN PO DYSPEPSIA 03/14/21 20:45 Magnesium Hydroxide (Milk Of Magnesia) 2,400 mg PRN QHS PRN PO CONSTIPATION 03/14/21 20:45 Acetaminophen (Tylenol) 650 mg TID PRN PO Back Pain 03/14/21 21:45 UNV Ascorbic Acid (Vitamin C) 500 mg BID PO 03/15/21 09:00 03/21/21 20:42 Aspirin (Aspirin Chewable) 81 mg DAILY PO 03/15/21 09:00 03/21/21 08:32 Atorvastatin Calcium (Lipitor) 20 mg DAILY PO 03/15/21 09:00 03/21/21 08:33 Carbidopa/Levodopa (Sinemet 10/100) 1 tab TID PO 03/14/21 23:00 03/21/21 20:41 Vitamin D (Vitamin D3) 50,000 unit QWE PO 03/20/21 16:00 03/20/21 15:16 Ferrous Sulfate (Feosol) 325 mg BID PO 03/15/21 09:00 03/21/21 20:42 Furosemide (Lasix) 20 mg DAILY PO 03/15/21 09:00 03/21/21 08:35 Gabapentin (Neurontin Oral Soln) 150 mg BID@1400,2200 PO 03/14/21 23:00 03/16/21 13:20 DC 03/14/21 23:14 Lisinopril (Prinivil) 10 mg DAILY PO 03/15/21 09:00 03/21/21 08:36 Metformin HCl (Glucophage) 500 mg BIDWMEALS PO 03/15/21 08:00 03/21/21 17:16 Metoprolol Tartrate (Lopressor) 12.5 mg BID PO 03/14/21 23:00 03/21/21 20:42 Tramadol HCl (Ultram) 50 mg PRN Q6HRS PRN PO PAIN 03/14/21 21:45 03/21/21 13:55 Celecoxib (CeleBREX) 200 mg DAILY PO 03/15/21 09:00 03/21/21 08:33 Lactobacillus Rhamnosus (Culturelle) 1 cap BID PO 03/14/21 23:00 03/21/21 20:41 Pantoprazole Sodium (Protonix) 40 mg DAILY PO 03/15/21 09:00 03/21/21 08:35 Potassium Chloride (Klor-Con) 10 meq DAILY PO 03/15/21 09:00 03/21/21 08:33 Trolamine Salicylate (Myoplex) 1 shwetha TID TP 03/15/21 09:00 03/20/21 14:00 Benztropine Mesylate (Cogentin) 1 mg BID PO 03/14/21 23:00 03/21/21 20:42 Clonazepam (KlonoPIN) 2 mg BID PO 03/14/21 23:00 03/16/21 16:48 DC 03/16/21 09:00 Divalproex Sodium (Depakote Er) 1,000 mg BID PO 03/14/21 23:00 03/21/21 20:42 Fluphenazine HCl (Prolixin) 15 mg BID PO 03/14/21 23:00 03/21/21 20:51 Lorazepam (Ativan) 1 mg TID PO 03/14/21 23:00 03/16/21 18:45 DC 03/16/21 14:00 Risperidone (RisperDAL) 2 mg DAILY@1400 PO 03/15/21 14:00 03/21/21 13:53 Risperidone (RisperDAL) 4 mg QHS PO 03/14/21 23:00 03/21/21 20:42 Nicotine (Nicoderm Cq 21mg Patch) 1 patch DAILY TD 03/15/21 09:00 03/21/21 08:42 Gabapentin (Neurontin) 100 mg TID PO 03/16/21 14:00 03/21/21 20:41 Ropinirole HCl (Requip) 0.5 mg TID PO 03/16/21 21:00 03/21/21 20:41 Clonazepam (KlonoPIN) 2 mg HS PO 03/16/21 21:00 03/19/21 21:01 DC 03/18/21 21:13 Clonazepam (KlonoPIN) 1.5 mg DAILY PO 03/17/21 09:00 03/23/21 08:00 03/21/21 08:36 Clonazepam (KlonoPIN) 1 mg DAILY PO 03/23/21 09:00 03/28/21 09:01 Clonazepam (KlonoPIN) 0.5 mg DAILY PO 03/29/21 09:00 04/03/21 09:01 Clonazepam (KlonoPIN) 1.5 mg HS PO 03/20/21 21:00 03/25/21 21:01 03/21/21 20:41 Clonazepam (KlonoPIN) 1 mg QHS PO 03/26/21 21:00 03/31/21 21:01 Clonazepam (KlonoPIN) 0.5 mg HS PO 04/01/21 21:00 04/06/21 21:01 Lorazepam (Ativan) 1 mg BID PO 03/17/21 21:00 03/19/21 21:01 DC 03/19/21 08:13 Lorazepam (Ativan) 1 mg DAILY PO 03/20/21 09:00 03/22/21 08:59 03/21/21 08:36 I have reviewed the current psychotropics carefully including drug interactions. Risk benefit ratio favors no change other than as noted in my dictated progress note. Diagnosis: Problems: (1) Anxiety disorder (2) Impulse control disorder (3) Schizoaffective disorder, chronic condition with acute exacerbation BESSIE SOLORIO MD Mar 21, 2021 22:00
--- NOTE | 2021-03-22 03:32 | NUR ---
Nursing Note The patient was located in her room for her assessment and medication pass. The patient was pleasant during interactions and took her medication whole. The patient was alert to name and location. The patient was disorganized during conversations with this nurse. The patient was cooperative with cares. The patient is currently sleeping in her room.
[2021-03-22 05:40] VITALS: BP 174/91
[2021-03-22] MEDS: NICOTINE 21MG PATCH. TD SCH (08:03)
[2021-03-22] MEDS: clonazePAM 1 MG TABLET PO SCH ×2 (08:04→20:56)
[2021-03-22] MEDS: DIVALPROEX ER 500 MG TAB.ER.24H PO SCH ×2 (08:04→20:57)
[2021-03-22] MEDS: ATORVASTATIN CALCIUM 20 MG TABLET PO SCH (08:04)
[2021-03-22] MEDS: metFORMIN 500 MG TABLET PO SCH ×2 (08:04→17:26)
[2021-03-22] MEDS: BENZTROPINE MESYLATE 1 MG TABLET PO SCH ×2 (08:04→20:57)
[2021-03-22] MEDS: PANTOPRAZOLE 40 MG TABLET. PO SCH (08:04)
[2021-03-22] MEDS: CARBIDOPA/LEVODOPA 10/100MG TABLET PO SCH ×3 (08:04→20:57)
[2021-03-22] MEDS: FERROUS SULFATE 325 MG TABLET. PO SCH ×2 (08:05→20:56)
[2021-03-22] MEDS: CELECOXIB 100 MG CAPSULE PO SCH (08:05)
[2021-03-22] MEDS: POTASSIUM CHLORIDE 10 MEQ TABLET.ER. PO SCH (08:05)
[2021-03-22] MEDS: ASPIRIN CHEWABLE 81 MG TABLET. PO SCH (08:05)
[2021-03-22] MEDS: LACTOBACILLUS RHAMNOSUS GG 1 CAPSULE. PO SCH ×2 (08:05→20:57)
[2021-03-22] MEDS: rOPINIRole 0.5 MG TABLET. PO SCH ×3 (08:05→20:56)
[2021-03-22] MEDS: FUROSEMIDE 20 MG TABLET PO SCH (08:06)
[2021-03-22] MEDS: GABAPENTIN 100 MG CAPSULE. PO SCH ×3 (08:06→20:57)
[2021-03-22] MEDS: METOPROLOL TART IMMED RELEASE 25 MG TABLET. PO SCH ×2 (08:06→20:56)
[2021-03-22] MEDS: LISINOPRIL 10 MG TABLET PO SCH (08:06)
[2021-03-22] MEDS: ASCORBIC ACID 500 MG TABLET PO SCH ×2 (08:07→20:57)
[2021-03-22] MEDS: TROLAMINE SALICYLATE 10% TOPICAL CREAM 85GM JAR. TP SCH ×3 (08:07→20:57)
[2021-03-22] MEDS: traMADol 50 MG TABLET PO PRN (13:41)
[2021-03-22] MEDS: risperiDONE 2 MG TABLET. PO SCH ×2 (13:41→20:56)
--- NOTE | 2021-03-22 15:02 | NUR ---
Shift Summary Patient took medications with encouragement. Patient continues to try and pick and choose medications she takes. Patient other odom very labile, having elevated moods, and hateful towards staff when does not get what she wants when she wants. Patient otherwise wheels self around unit.
[2021-03-22 16:08] VITALS: BP 121/63
--- NOTE | 2021-03-22 21:56 | PDOC ---
Exam Note: Timothy Note: Please also refer to the separate dictated note~for this date of service dictated separately.~Patient seen individually. Discussed the patient with Nursing staff reviewed the chart.~Reviewed interim history and current functioning. Reviewed vital signs,~Labs/ Radiology~and current medications noted below. Continue current treatment with the changes noted in the dictated addendum note Assessment: Vital Signs/I&O: Vital Signs Date Time Temp Pulse Resp B/P (MAP) Pulse Ox O2 Delivery O2 Flow Rate FiO2 03/22/21 20:56 76 121/63 03/22/21 16:08 97.4 18 95 Room Air 03/19/21 10:38 99.0 I & O 03/21/21 03/21/21 03/22/21 14:59 22:59 06:59 Intake Total 600 ml 480 ml Balance 600 ml 480 ml Labs: Laboratory Tests Test 03/22/21 08:01 Glucose (Fingerstick) 97 mg/dL (70-99) Current Medications: Meds: Laboratory Tests Test 03/22/21 08:01 Glucose (Fingerstick) 97 mg/dL Current Medications Medications (Trade) Dose Ordered Sig/Arnold Route PRN Reason Start Time Stop Time Status Last Admin Dose Admin Acetaminophen (Tylenol) 650 mg PRN Q6HRS PRN PO MILD PAIN / TEMP > 100.3'F 03/14/21 20:45 03/17/21 15:50 Multi-Ingredient Ointment (Analgesic [place]) 1 shwetha PRN QID PRN TP MUSCLE PAIN 03/14/21 20:45 Al Hydroxide/Mg Hydroxide (Mylanta Plus Xs) 15 ml PRN AFTMEALHC PRN PO DYSPEPSIA 03/14/21 20:45 Magnesium Hydroxide (Milk Of Magnesia) 2,400 mg PRN QHS PRN PO CONSTIPATION 03/14/21 20:45 Acetaminophen (Tylenol) 650 mg TID PRN PO Back Pain 03/14/21 21:45 UNV Ascorbic Acid (Vitamin C) 500 mg BID PO 03/15/21 09:00 03/22/21 20:57 Aspirin (Aspirin Chewable) 81 mg DAILY PO 03/15/21 09:00 03/22/21 08:05 Atorvastatin Calcium (Lipitor) 20 mg DAILY PO 03/15/21 09:00 03/22/21 08:04 Carbidopa/Levodopa (Sinemet 10/100) 1 tab TID PO 03/14/21 23:00 03/22/21 20:57 Vitamin D (Vitamin D3) 50,000 unit QWE PO 03/20/21 16:00 03/20/21 15:16 Ferrous Sulfate (Feosol) 325 mg BID PO 03/15/21 09:00 03/22/21 20:56 Furosemide (Lasix) 20 mg DAILY PO 03/15/21 09:00 03/22/21 08:06 Gabapentin (Neurontin Oral Soln) 150 mg BID@1400,2200 PO 03/14/21 23:00 03/16/21 13:20 DC 03/14/21 23:14 Lisinopril (Prinivil) 10 mg DAILY PO 03/15/21 09:00 03/22/21 08:06 Metformin HCl (Glucophage) 500 mg BIDWMEALS PO 03/15/21 08:00 03/22/21 17:26 Metoprolol Tartrate (Lopressor) 12.5 mg BID PO 03/14/21 23:00 03/22/21 20:56 Tramadol HCl (Ultram) 50 mg PRN Q6HRS PRN PO PAIN 03/14/21 21:45 03/22/21 13:41 Celecoxib (CeleBREX) 200 mg DAILY PO 03/15/21 09:00 03/22/21 08:05 Lactobacillus Rhamnosus (Culturelle) 1 cap BID PO 03/14/21 23:00 03/22/21 20:57 Pantoprazole Sodium (Protonix) 40 mg DAILY PO 03/15/21 09:00 03/22/21 08:04 Potassium Chloride (Klor-Con) 10 meq DAILY PO 03/15/21 09:00 03/22/21 08:05 Trolamine Salicylate (Myoplex) 1 shwetha TID TP 03/15/21 09:00 03/20/21 14:00 Benztropine Mesylate (Cogentin) 1 mg BID PO 03/14/21 23:00 03/22/21 20:57 Clonazepam (KlonoPIN) 2 mg BID PO 03/14/21 23:00 03/16/21 16:48 DC 03/16/21 09:00 Divalproex Sodium (Depakote Er) 1,000 mg BID PO 03/14/21 23:00 03/22/21 20:57 Fluphenazine HCl (Prolixin) 15 mg BID PO 03/14/21 23:00 03/22/21 20:56 Lorazepam (Ativan) 1 mg TID PO 03/14/21 23:00 03/16/21 18:45 DC 03/16/21 14:00 Risperidone (RisperDAL) 2 mg DAILY@1400 PO 03/15/21 14:00 03/22/21 13:41 Risperidone (RisperDAL) 4 mg QHS PO 03/14/21 23:00 03/22/21 20:56 Nicotine (Nicoderm Cq 21mg Patch) 1 patch DAILY TD 03/15/21 09:00 03/22/21 08:03 Gabapentin (Neurontin) 100 mg TID PO 03/16/21 14:00 03/22/21 20:57 Ropinirole HCl (Requip) 0.5 mg TID PO 03/16/21 21:00 03/22/21 20:56 Clonazepam (KlonoPIN) 2 mg HS PO 03/16/21 21:00 03/19/21 21:01 DC 03/18/21 21:13 Clonazepam (KlonoPIN) 1.5 mg DAILY PO 03/17/21 09:00 03/23/21 08:00 03/22/21 08:04 Clonazepam (KlonoPIN) 1 mg DAILY PO 03/23/21 09:00 03/28/21 09:01 Clonazepam (KlonoPIN) 0.5 mg DAILY PO 03/29/21 09:00 04/03/21 09:01 Clonazepam (KlonoPIN) 1.5 mg HS PO 03/20/21 21:00 03/25/21 21:01 03/22/21 20:56 Clonazepam (KlonoPIN) 1 mg QHS PO 03/26/21 21:00 03/31/21 21:01 Clonazepam (KlonoPIN) 0.5 mg HS PO 04/01/21 21:00 04/06/21 21:01 Lorazepam (Ativan) 1 mg BID PO 03/17/21 21:00 03/19/21 21:01 DC 03/19/21 08:13 Lorazepam (Ativan) 1 mg DAILY PO 03/20/21 09:00 03/22/21 08:59 DC 03/21/21 08:36 I have reviewed the current psychotropics carefully including drug interactions. Risk benefit ratio favors no change other than as noted in my dictated progress note. Diagnosis: Problems: (1) Anxiety disorder (2) Impulse control disorder (3) Schizoaffective disorder, chronic condition with acute exacerbation BESSIE SOLORIO MD Mar 22, 2021 21:56
--- NOTE | 2021-03-22 23:05 | NUR ---
Nursing Note The patient was located in her room for her assessment and medication pass. the patient was labile and disorganized during interaction with this nurse. The patient was compliant with her medications and took them whole. The patient made several vulgar statements about Dr. Maher and this nurse during her assessment. the patient declined to answer her assessment questions instead talking over this nurse. The patient is currently sleeping in her room.
--- NOTE | 2021-03-23 04:51 | CONS ---
DATE OF CONSULTATION: 03/16/2021 REFERRING PHYSICIAN: Dr. Maher/Dr. Rosas. REASON FOR CONSULTATION: History of Parkinson's disease. HISTORY OF PRESENT ILLNESS: This is a 56-year-old right-handed female who was [facility] on account of exacerbation of her delusion, paranoid and labile mood. The patient who is a resident at [facility] in [place], has had a history of Parkinson's and possible parkinsonian symptoms for several years. Neuro consult was requested for further evaluation of parkinsonism. She has been on carbidopa/levodopa 10/100, 3 times daily without significant relief of her symptoms, which described as a trauma, stiffness, gait disturbance and tendency to fall. The patient has had frequent crying crisis, screaming, labile mood, poor appetite. She was admitted for further psychiatric care and stabilization. PAST MEDICAL HISTORY: Significant for hypertension, hyperlipidemia, diabetes mellitus type 2, hypothyroidism, Parkinson's disease, peripheral neuropathy and gastroesophageal reflux disease. Anemia. PAST SURGICAL HISTORY: None. FAMILY HISTORY: Noncontributory. SOCIAL HISTORY: The patient is a senior living resident. She denies smoking, alcohol drinking or illicit drug use. CURRENT HOME MEDICATIONS: Include ferrous sulfate, Lipitor, metoprolol, Celebrex, tramadol, Tylenol, Risperdal, lorazepam, carbidopa, levodopa, benztropine, vitamin D and vitamin C. ALLERGIES: HALDOL. REVIEW OF SYSTEMS: A 10-point review of systems was performed as mentioned in above history of present illness. PHYSICAL EXAMINATION: GENERAL: Well-developed, well-nourished female in no acute distress. She weighs 84.8 kilos. VITAL SIGNS: Blood pressure 112/72, respiratory rate 20, pulse is 75 and regular, temperature 97.4, oxygen saturation 92% on room air. HEENT: Normocephalic, atraumatic, otherwise unremarkable. NECK: Supple, negative for carotid bruit, lymphadenopathy or thyromegaly. LUNGS: Clear to A and P. CARDIOVASCULAR: Regular rate and rhythm, normal S1, S2. There is no S3, S4 or murmur. ABDOMEN: Soft. Bowel sounds positive. EXTREMITIES: Negative for cyanosis, clubbing or pedal edema. NEUROLOGIC: Mental status: The patient is alert and oriented x3. The speech is fluent. There is no language dysfunction. Memory, judgment and abstracting thinking are fair. The patient denies hallucination, delusion. Cranial nerves: Visual grewal are full. The pupils are reactive to light and accommodation. The extraocular movements are intact. There is no nystagmus. There is no facial motor or sensory deficit. Hearing is intact bilaterally. The palate is elevated symmetrically. Sternocleidomastoid muscles are powerful bilaterally. The patient shrugs her shoulders symmetrically and protrudes her tongue in the midline without fasciculation or atrophy. Motor: No focal muscle bulk wasting. The tone is normal. The strength is 4/5 throughout. The patient has extreme resting tremor of both upper extremities and mild partial tremor. Sensory examination revealed normal pinprick and light touch senses throughout. Deep tendon reflexes were symmetric and hypoactive without pathologic responses. Gait: The stance is unsteady. LABORATORY DATA: From 03/14/2021 revealed white blood cells of 12.6 thousand, hemoglobin 14.1, hematocrit 42.3, platelet count 369,000. Chemistry revealed sodium is 131, potassium 4.7, chloride 94, CO2 of 29, BUN 10, creatinine 0.7, glucose 104, A1c is 5.9. Magnesium is high at 2.5. Iron is low at 40 with normal iron saturation. Liver enzymes not elevated. Lipid profile revealed elevated triglycerides at 399 and cholesterol 258 and LDL at 137 with normal HDL. Normal vitamin D and thyroid profile. Urinalysis is negative for urinary tract infections. Valproic acid is 84. D-dimer is 0.31. IMPRESSION: 1. Symptoms of parkinsonism includes marked resting tremor of both upper extremities and sometimes right lower extremities of unknown etiology; however, the side effects of atypical antipsychotic medications may have contributed to her tremor as well. 2. Multiple medical problems include hypertension, hyperlipidemia, hypothyroidism. 3. GERD, anemia. 4. Multiple psychiatric problems include schizoaffective disorders, anxiety disorders, impulse disorder. RECOMMENDATION: 1. We will continue with current management initiated by Dr. Rosas and Dr. Maher. 2. We will give 1 trial of ropinirole as 0.5 mg 3 times a day for tremor and evaluate the patient from neurologic standpoint. MADYSON DR: Violeta TID: [id number]
[2021-03-23 05:54] VITALS: BP 112/70
--- NOTE | 2021-03-23 07:13 | PDOC ---
Exam Note: Timothy Note: This note is a late entry for 03/21/2021 covers elements not covered in my initial note. Subjective: The patient was reviewed in the morning of 03/21/2021 for a treatment team meeting with Jennifer Hill, Sharon Rivera (mental health social worker), Mar, activity therapy and Zana RN and Paul RN, discussed and reviewed the chart. She slept 7-1/2 hours previous night. The patient has had marked mood lability, screaming, crying, laughing all in rapid succession, talking about my life is horrible. Review of Systems: She complains of significant pain. Ambulation impaired in wheelchair. No CV, , pulmonary, eye system symptoms on review. Mental Status Exam: The patient is alert and oriented. She continues to have significant mood lability, hyperverbal, distractible. Speech coherent, moderate latency. Abstraction fair. Computation impaired. Language function intact. Mood and affect labile. Laboratory Data: Reviewed. Impression: Schizoaffective disorder bipolar type, mixed with psychotic features. Anxiety disorder unspecified. Impulse control disorder unspecified. Plan: At treatment team meeting we discussed she attended 3 groups but is in and out of groups since her mood remains extremely labile. Continue current psychotropics. We will continue to gradually increase Clozaril once we have her off the benzodiazepines. Maintain Depakote at current dosage, level therapeutic at 84. Adjust further as clinically indicated. Assessment: Vital Signs/I&O: Vital Signs Date Time Temp Pulse Resp B/P (MAP) Pulse Ox O2 Delivery O2 Flow Rate FiO2 03/23/21 05:54 96.9 62 18 112/70 (84) 93 Room Air 03/19/21 10:38 99.0 I & O 03/22/21 03/22/21 03/23/21 15:00 23:00 07:00 Intake Total 240 ml 720 ml Balance 240 ml 720 ml Labs: Laboratory Tests Test 03/22/21 08:01 Glucose (Fingerstick) 97 mg/dL (70-99) Current Medications: Meds: Laboratory Tests Test 03/22/21 08:01 Glucose (Fingerstick) 97 mg/dL Current Medications Medications (Trade) Dose Ordered Sig/Arnold Route PRN Reason Start Time Stop Time Status Last Admin Dose Admin Acetaminophen (Tylenol) 650 mg PRN Q6HRS PRN PO MILD PAIN / TEMP > 100.3'F 03/14/21 20:45 03/17/21 15:50 Multi-Ingredient Ointment (Analgesic [place]) 1 shwetha PRN QID PRN TP MUSCLE PAIN 03/14/21 20:45 Al Hydroxide/Mg Hydroxide (Mylanta Plus Xs) 15 ml PRN AFTMEALHC PRN PO DYSPEPSIA 03/14/21 20:45 Magnesium Hydroxide (Milk Of Magnesia) 2,400 mg PRN QHS PRN PO CONSTIPATION 03/14/21 20:45 Acetaminophen (Tylenol) 650 mg TID PRN PO Back Pain 03/14/21 21:45 UNV Ascorbic Acid (Vitamin C) 500 mg BID PO 03/15/21 09:00 03/22/21 20:57 Aspirin (Aspirin Chewable) 81 mg DAILY PO 03/15/21 09:00 03/22/21 08:05 Atorvastatin Calcium (Lipitor) 20 mg DAILY PO 03/15/21 09:00 03/22/21 08:04 Carbidopa/Levodopa (Sinemet 10/100) 1 tab TID PO 03/14/21 23:00 03/22/21 20:57 Vitamin D (Vitamin D3) 50,000 unit QWE PO 03/20/21 16:00 03/20/21 15:16 Ferrous Sulfate (Feosol) 325 mg BID PO 03/15/21 09:00 03/22/21 20:56 Furosemide (Lasix) 20 mg DAILY PO 03/15/21 09:00 03/22/21 08:06 Gabapentin (Neurontin Oral Soln) 150 mg BID@1400,2200 PO 03/14/21 23:00 03/16/21 13:20 DC 03/14/21 23:14 Lisinopril (Prinivil) 10 mg DAILY PO 03/15/21 09:00 03/22/21 08:06 Metformin HCl (Glucophage) 500 mg BIDWMEALS PO 03/15/21 08:00 03/22/21 17:26 Metoprolol Tartrate (Lopressor) 12.5 mg BID PO 03/14/21 23:00 03/22/21 20:56 Tramadol HCl (Ultram) 50 mg PRN Q6HRS PRN PO PAIN 03/14/21 21:45 03/22/21 13:41 Celecoxib (CeleBREX) 200 mg DAILY PO 03/15/21 09:00 03/22/21 08:05 Lactobacillus Rhamnosus (Culturelle) 1 cap BID PO 03/14/21 23:00 03/22/21 20:57 Pantoprazole Sodium (Protonix) 40 mg DAILY PO 03/15/21 09:00 03/22/21 08:04 Potassium Chloride (Klor-Con) 10 meq DAILY PO 03/15/21 09:00 03/22/21 08:05 Trolamine Salicylate (Myoplex) 1 shwetha TID TP 03/15/21 09:00 03/20/21 14:00 Benztropine Mesylate (Cogentin) 1 mg BID PO 03/14/21 23:00 03/22/21 20:57 Clonazepam (KlonoPIN) 2 mg BID PO 03/14/21 23:00 03/16/21 16:48 DC 03/16/21 09:00 Divalproex Sodium (Depakote Er) 1,000 mg BID PO 03/14/21 23:00 03/22/21 20:57 Fluphenazine HCl (Prolixin) 15 mg BID PO 03/14/21 23:00 03/22/21 20:56 Lorazepam (Ativan) 1 mg TID PO 03/14/21 23:00 03/16/21 18:45 DC 03/16/21 14:00 Risperidone (RisperDAL) 2 mg DAILY@1400 PO 03/15/21 14:00 03/22/21 13:41 Risperidone (RisperDAL) 4 mg QHS PO 03/14/21 23:00 03/22/21 20:56 Nicotine (Nicoderm Cq 21mg Patch) 1 patch DAILY TD 03/15/21 09:00 03/22/21 08:03 Gabapentin (Neurontin) 100 mg TID PO 03/16/21 14:00 03/22/21 20:57 Ropinirole HCl (Requip) 0.5 mg TID PO 03/16/21 21:00 03/22/21 20:56 Clonazepam (KlonoPIN) 2 mg HS PO 03/16/21 21:00 03/19/21 21:01 DC 03/18/21 21:13 Clonazepam (KlonoPIN) 1.5 mg DAILY PO 03/17/21 09:00 03/23/21 08:00 03/22/21 08:04 Clonazepam (KlonoPIN) 1 mg DAILY PO 03/23/21 09:00 03/28/21 09:01 Clonazepam (KlonoPIN) 0.5 mg DAILY PO 03/29/21 09:00 04/03/21 09:01 Clonazepam (KlonoPIN) 1.5 mg HS PO 03/20/21 21:00 03/25/21 21:01 03/22/21 20:56 Clonazepam (KlonoPIN) 1 mg QHS PO 03/26/21 21:00 03/31/21 21:01 Clonazepam (KlonoPIN) 0.5 mg HS PO 04/01/21 21:00 04/06/21 21:01 Lorazepam (Ativan) 1 mg BID PO 03/17/21 21:00 03/19/21 21:01 DC 03/19/21 08:13 Lorazepam (Ativan) 1 mg DAILY PO 03/20/21 09:00 03/22/21 08:59 DC 03/21/21 08:36 I have reviewed the current psychotropics carefully including drug interactions. Risk benefit ratio favors no change other than as noted in my dictated progress note. Diagnosis: Problems: (1) Anxiety disorder (2) Impulse control disorder (3) Schizoaffective disorder, chronic condition with acute exacerbation BESSIE SOLORIO MD Mar 23, 2021 07:13
--- NOTE | 2021-03-23 07:30 | PDOC ---
Exam Note: Timothy Note: This note is a late entry for 03/22/2021 covers elements not covered in my initial note. Subjective: The patient was seen individually in the evening of 03/22/2021 with Bruno DORAN, discussed and reviewed the chart. She slept 8-1/4 hours previous night. The patient remains intermittently psychotic with marked mood lability making rather inappropriate comments even during the conversation in the evening at the dining room and laughing about it. Other times she appears withdrawn, sad, remains paranoid, gets agitated at medication pass. Review of Systems: Ambulation impaired in wheelchair. No CV, , pulmonary, eye system symptoms on review. Mental Status Exam: The patient is alert and oriented. I met with her in the cafeteria. Speech coherent, rapid at times. Abstraction fair. Computation impaired. Language function intact. Attention span short, Mood and affect paranoid, suspicious with ongoing mood lability, some improvement. Laboratory Data: Reviewed. Impression: Schizoaffective disorder bipolar type, mixed with psychotic features. Anxiety disorder unspecified. Impulse control disorder unspecified. Plan: No change from initial note. Once the benzodiazepines are tapered and stopped we will start Clozaril and then reduce the Prolixin and Risperdal after that. Assessment: Vital Signs/I&O: Vital Signs Date Time Temp Pulse Resp B/P (MAP) Pulse Ox O2 Delivery O2 Flow Rate FiO2 03/23/21 05:54 96.9 62 18 112/70 (84) 93 Room Air 03/19/21 10:38 99.0 I & O 03/22/21 03/22/21 03/23/21 15:00 23:00 07:00 Intake Total 240 ml 720 ml Balance 240 ml 720 ml Labs: Laboratory Tests Test 03/22/21 08:01 03/23/21 07:25 Glucose (Fingerstick) 97 mg/dL (70-99) 110 mg/dL (70-99) H Current Medications: Meds: Laboratory Tests Test 03/22/21 08:01 03/23/21 07:25 Glucose (Fingerstick) 97 mg/dL 110 mg/dL Current Medications Medications (Trade) Dose Ordered Sig/Arnold Route PRN Reason Start Time Stop Time Status Last Admin Dose Admin Acetaminophen (Tylenol) 650 mg PRN Q6HRS PRN PO MILD PAIN / TEMP > 100.3'F 6/17/21 20:45 03/17/21 15:50 Multi-Ingredient Ointment (Analgesic Nora) 1 shwetha PRN QID PRN TP MUSCLE PAIN 03/14/21 20:45 Al Hydroxide/Mg Hydroxide (Mylanta Plus Xs) 15 ml PRN AFTMEALHC PRN PO DYSPEPSIA 03/14/21 20:45 Magnesium Hydroxide (Milk Of Magnesia) 2,400 mg PRN QHS PRN PO CONSTIPATION 03/14/21 20:45 Acetaminophen (Tylenol) 650 mg TID PRN PO Back Pain 03/14/21 21:45 UNV Ascorbic Acid (Vitamin C) 500 mg BID PO 03/15/21 09:00 03/22/21 20:57 Aspirin (Aspirin Chewable) 81 mg DAILY PO 03/15/21 09:00 03/22/21 08:05 Atorvastatin Calcium (Lipitor) 20 mg DAILY PO 03/15/21 09:00 03/22/21 08:04 Carbidopa/Levodopa (Sinemet 10/100) 1 tab TID PO 03/14/21 23:00 03/22/21 20:57 Vitamin D (Vitamin D3) 50,000 unit QWE PO 03/20/21 16:00 03/20/21 15:16 Ferrous Sulfate (Feosol) 325 mg BID PO 03/15/21 09:00 03/22/21 20:56 Furosemide (Lasix) 20 mg DAILY PO 03/15/21 09:00 03/22/21 08:06 Gabapentin (Neurontin Oral Soln) 150 mg BID@1400,2200 PO 03/14/21 23:00 03/16/21 13:20 DC 03/14/21 23:14 Lisinopril (Prinivil) 10 mg DAILY PO 03/15/21 09:00 03/22/21 08:06 Metformin HCl (Glucophage) 500 mg BIDWMEALS PO 03/15/21 08:00 03/22/21 17:26 Metoprolol Tartrate (Lopressor) 12.5 mg BID PO 03/14/21 23:00 03/22/21 20:56 Tramadol HCl (Ultram) 50 mg PRN Q6HRS PRN PO PAIN 03/14/21 21:45 03/22/21 13:41 Celecoxib (CeleBREX) 200 mg DAILY PO 03/15/21 09:00 03/22/21 08:05 Lactobacillus Rhamnosus (Culturelle) 1 cap BID PO 03/14/21 23:00 03/22/21 20:57 Pantoprazole Sodium (Protonix) 40 mg DAILY PO 03/15/21 09:00 03/22/21 08:04 Potassium Chloride (Klor-Con) 10 meq DAILY PO 03/15/21 09:00 03/22/21 08:05 Trolamine Salicylate (Myoplex) 1 shwetha TID TP 03/15/21 09:00 03/20/21 14:00 Benztropine Mesylate (Cogentin) 1 mg BID PO 03/14/21 23:00 03/22/21 20:57 Clonazepam (KlonoPIN) 2 mg BID PO 03/14/21 23:00 03/16/21 16:48 DC 03/16/21 09:00 Divalproex Sodium (Depakote Er) 1,000 mg BID PO 03/14/21 23:00 03/22/21 20:57 Fluphenazine HCl (Prolixin) 15 mg BID PO 03/14/21 23:00 03/22/21 20:56 Lorazepam (Ativan) 1 mg TID PO 03/14/21 23:00 03/16/21 18:45 DC 03/16/21 14:00 Risperidone (RisperDAL) 2 mg DAILY@1400 PO 03/15/21 14:00 03/22/21 13:41 Risperidone (RisperDAL) 4 mg QHS PO 03/14/21 23:00 03/22/21 20:56 Nicotine (Nicoderm Cq 21mg Patch) 1 patch DAILY TD 03/15/21 09:00 03/22/21 08:03 Gabapentin (Neurontin) 100 mg TID PO 03/16/21 14:00 03/22/21 20:57 Ropinirole HCl (Requip) 0.5 mg TID PO 03/16/21 21:00 03/22/21 20:56 Clonazepam (KlonoPIN) 2 mg HS PO 03/16/21 21:00 03/19/21 21:01 DC 03/18/21 21:13 Clonazepam (KlonoPIN) 1.5 mg DAILY PO 03/17/21 09:00 03/23/21 08:00 03/22/21 08:04 Clonazepam (KlonoPIN) 1 mg DAILY PO 03/23/21 09:00 03/28/21 09:01 Clonazepam (KlonoPIN) 0.5 mg DAILY PO 03/29/21 09:00 04/03/21 09:01 Clonazepam (KlonoPIN) 1.5 mg HS PO 03/20/21 21:00 03/25/21 21:01 03/22/21 20:56 Clonazepam (KlonoPIN) 1 mg QHS PO 03/26/21 21:00 03/31/21 21:01 Clonazepam (KlonoPIN) 0.5 mg HS PO 04/01/21 21:00 04/06/21 21:01 Lorazepam (Ativan) 1 mg BID PO 03/17/21 21:00 03/19/21 21:01 DC 03/19/21 08:13 Lorazepam (Ativan) 1 mg DAILY PO 03/20/21 09:00 03/22/21 08:59 DC 03/21/21 08:36 I have reviewed the current psychotropics carefully including drug interactions. Risk benefit ratio favors no change other than as noted in my dictated progress note. Diagnosis: Problems: (1) Anxiety disorder (2) Impulse control disorder (3) Schizoaffective disorder, chronic condition with acute exacerbation BESSIE SOLORIO MD Mar 23, 2021 07:29
--- NOTE | 2021-03-23 08:11 | PN ---
DATE: 03/17/2021 SUBJECTIVE: The patient denies any new medical or neurological complaints. She continues to have bilateral extreme resting tremor of both upper extremities and sometimes the right lower extremity, etiology uncertain, rule out parkinsonism versus side effects of atypical antipsychotic medications. The patient was started yesterday on ropinirole to control her tremor. However, she has been on antipsychotic medications and ____. OBJECTIVE: GENERAL: Well-developed, well-nourished female, in no acute distress. VITAL SIGNS: Blood pressure 140/83, respiratory rate 18, pulse is 67 and regular, oxygen saturation is 97%, and temperature 97.2. HEENT: Normocephalic, atraumatic, otherwise unremarkable. NECK: Supple, negative for carotid bruit, lymphadenopathy or thyromegaly. LUNGS: Clear to A and P. CARDIOVASCULAR: Regular rhythm. Normal S1, S2. ABDOMEN: Soft. Bowel sounds positive. EXTREMITIES: Negative for cyanosis, clubbing or pedal edema. NEUROLOGICAL: Mental status: The patient is alert and oriented x 3. Speech is fluent. There is no language dysfunction. Memory, judgment and abstracting thinkings are fair. The patient denies hallucination or delusion. Cranial nerves are intact. No focal motor or sensory deficits. The patient continues to have extreme resting tremor of both hands. The tone is slightly increased in the lower extremities. Deep tendon reflexes were asymmetric and hypoactive with absent Achilles responses. Gait not tested. IMPRESSION: As I mentioned above: 1. Parkinsonism symptoms including resting tremor and increased rigidity with gait disturbance; however, side effects of atypical anti-psychotropic medications is not entirely ruled out. 2. Multiple medical and psychiatric care as outlined before. RECOMMENDATIONS: Continue with current medical and psychiatric care. AILYN/WILLIAM/GÓMEZ DR: Violeta TID: [id number]
[2021-03-23] MEDS: CARBIDOPA/LEVODOPA 10/100MG TABLET PO SCH ×2 (08:21→13:34)
[2021-03-23] MEDS: clonazePAM 1 MG TABLET PO SCH ×2 (08:21→20:40)
[2021-03-23] MEDS: LACTOBACILLUS RHAMNOSUS GG 1 CAPSULE. PO SCH ×2 (08:21→20:39)
[2021-03-23] MEDS: CELECOXIB 100 MG CAPSULE PO SCH (08:21)
[2021-03-23] MEDS: GABAPENTIN 100 MG CAPSULE. PO SCH ×3 (08:22→20:40)
[2021-03-23] MEDS: ASCORBIC ACID 500 MG TABLET PO SCH ×2 (08:22→20:39)
[2021-03-23] MEDS: FERROUS SULFATE 325 MG TABLET. PO SCH ×2 (08:22→20:39)
[2021-03-23] MEDS: POTASSIUM CHLORIDE 10 MEQ TABLET.ER. PO SCH (08:23)
[2021-03-23] MEDS: rOPINIRole 0.5 MG TABLET. PO SCH ×3 (08:23→20:39)
[2021-03-23] MEDS: metFORMIN 500 MG TABLET PO SCH ×2 (08:23→17:20)
[2021-03-23] MEDS: ASPIRIN CHEWABLE 81 MG TABLET. PO SCH (08:23)
[2021-03-23] MEDS: METOPROLOL TART IMMED RELEASE 25 MG TABLET. PO SCH ×2 (08:23→20:38)
[2021-03-23] MEDS: PANTOPRAZOLE 40 MG TABLET. PO SCH (08:23)
[2021-03-23] MEDS: FUROSEMIDE 20 MG TABLET PO SCH (08:23)
[2021-03-23] MEDS: DIVALPROEX ER 500 MG TAB.ER.24H PO SCH ×2 (08:24→20:40)
[2021-03-23] MEDS: BENZTROPINE MESYLATE 1 MG TABLET PO SCH ×2 (08:24→20:40)
[2021-03-23] MEDS: LISINOPRIL 10 MG TABLET PO SCH (08:24)
[2021-03-23] MEDS: NICOTINE 21MG PATCH. TD SCH (08:24)
[2021-03-23] MEDS: ATORVASTATIN CALCIUM 20 MG TABLET PO SCH (08:24)
[2021-03-23] MEDS: TROLAMINE SALICYLATE 10% TOPICAL CREAM 85GM JAR. TP SCH ×4 (08:25→20:45)
[2021-03-23 10:02] LABS: BASO # 0.1 x10^3/uL (0.0-0.2); BASO % 1 % (0-3); EOS # 0.2 x10^3/uL (0.0-0.7); EOS % 2 % (0-3); HEMATOCRIT 36.3 % (36.0-47.0); HEMOGLOBIN 12.3 g/dL (12.0-15.5); LYMPH # 2.6 x10^3/uL (1.0-4.8); LYMPH % 23 % (24-48); MEAN CORPUSCULAR HEMOGLOBIN 31 pg (25-35); MEAN CORPUSCULAR HGB CONC 34 g/dL (31-37); MEAN CORPUSCULAR VOLUME 92 fL (79-100); MONO # 0.7 x10^3/uL (0.0-1.1); MONO % 7 % (0-9); NEUT # 7.4 x10^3uL (1.8-7.7); NEUT % 68 % (31-73); PLATELET COUNT 257 x10^3/uL (140-400); RED BLOOD COUNT 3.95 x10^6/uL (3.50-5.40); RED CELL DISTRIBUTION WIDTH 13.9 % (11.5-14.5)
[2021-03-23 10:33] LABS: ALBUMIN/GLOBULIN RATIO 0.9 (1.0-1.7); CREATININE 0.7 mg/dL (0.6-1.0); GFR 86.6; POTASSIUM 4.3 mmol/L (3.5-5.1); TOTAL BILIRUBIN 0.2 mg/dL (0.2-1.0); TOTAL PROTEIN 6.5 g/dL (6.4-8.2)
[2021-03-23 12:53] LABS: % BANDS 9 % (0-9); % LYMPHS 22 % (24-48); % METAS 1 % (0-0); % MONOS 6 % (0-10); % MYELOS 2 % (0-0); % SEGS 60 % (35-66)
[2021-03-23 12:57] LABS: PLT ESTIMATE ADEQUATE (ADEQUATE)
[2021-03-23] MEDS: risperiDONE 2 MG TABLET. PO SCH ×2 (13:34→20:39)
[2021-03-23 16:15] VITALS: BP 99/60
--- NOTE | 2021-03-23 17:00 | NUR ---
Nursing note: Pt has been med compliant and cooperative this shift, though slightly resistive with meds this AM. After receiving AM meds, pt began uncontrollably crying and was unable to be understood. Pt was eventually able to calm self. She c/o that "both my arms and legs are broken." Pt continues to refuse scheduled pain medication. She has been propelling herself around the unit this shift, occasionally demanding to be helped into bed and back into her wheelchair when she has shown us that she can transfer herself. Will continue to monitor.
--- NOTE | 2021-03-23 23:11 | NUR ---
Pt located in dayroom this evening. Pt irritable, disorganized and demanding. Pt resistive to whole medications, stating that there were enough pills to OD on. Pt stated that Dr. Maher needed to stop ordering medication for her or she was going to kill him.
--- NOTE | 2021-03-23 23:15 | PDOC ---
Exam Note: Timothy Note: Please also refer to the separate dictated note~for this date of service dictated separately.~Patient seen individually. Discussed the patient with Nursing staff reviewed the chart.~Reviewed interim history and current functioning. Reviewed vital signs,~Labs/ Radiology~and current medications noted below. Continue current treatment with the changes noted in the dictated addendum note Assessment: Vital Signs/I&O: Vital Signs Date Time Temp Pulse Resp B/P (MAP) Pulse Ox O2 Delivery O2 Flow Rate FiO2 03/23/21 20:38 80 99/60 03/23/21 16:15 97.0 16 97 03/23/21 05:54 Room Air 03/19/21 10:38 99.0 I & O 03/22/21 03/22/21 03/23/21 15:00 23:00 07:00 Intake Total 240 ml 720 ml Balance 240 ml 720 ml Labs: Laboratory Tests Test 03/23/21 07:25 03/23/21 09:13 Glucose (Fingerstick) 110 mg/dL (70-99) H White Blood Count 11.0 x10^3/uL (4.0-11.0) Red Blood Count 3.95 x10^6/uL (3.50-5.40) Hemoglobin 12.3 g/dL (12.0-15.5) Hematocrit 36.3 % (36.0-47.0) Mean Corpuscular Volume 92 fL (79-100) Mean Corpuscular Hemoglobin 31 pg (25-35) Mean Corpuscular Hemoglobin Concent 34 g/dL (31-37) Red Cell Distribution Width 13.9 % (11.5-14.5) Platelet Count 257 x10^3/uL (140-400) Neutrophils (%) (Auto) 68 % (31-73) Lymphocytes (%) (Auto) 23 % (24-48) L Monocytes (%) (Auto) 7 % (0-9) Eosinophils (%) (Auto) 2 % (0-3) Basophils (%) (Auto) 1 % (0-3) Neutrophils # (Auto) 7.4 x10^3uL (1.8-7.7) Lymphocytes # (Auto) 2.6 x10^3/uL (1.0-4.8) Monocytes # (Auto) 0.7 x10^3/uL (0.0-1.1) Eosinophils # (Auto) 0.2 x10^3/uL (0.0-0.7) Basophils # (Auto) 0.1 x10^3/uL (0.0-0.2) Segmented Neutrophils % 60 % (35-66) Band Neutrophils % 9 % (0-9) Lymphocytes % 22 % (24-48) L Monocytes % 6 % (0-10) Metamyelocytes % 1 % (0-0) H Myelocytes % 2 % (0-0) H Platelet Estimate Adequate (ADEQUATE) Sodium Level 132 mmol/L (136-145) L Potassium Level 4.3 mmol/L (3.5-5.1) Chloride Level 96 mmol/L (98-107) L Carbon Dioxide Level 30 mmol/L (21-32) Anion Gap 6 (6-14) Blood Urea Nitrogen 15 mg/dL (7-20) Creatinine 0.7 mg/dL (0.6-1.0) Estimated GFR (Cockcroft-Gault) 86.6 BUN/Creatinine Ratio 21 (6-20) H Glucose Level 110 mg/dL (70-99) H Calcium Level 9.0 mg/dL (8.5-10.1) Total Bilirubin 0.2 mg/dL (0.2-1.0) Aspartate Amino Transferase (AST) 8 U/L (15-37) L Alanine Aminotransferase (ALT) 11 U/L (14-59) L Alkaline Phosphatase 90 U/L (46-116) Total Protein 6.5 g/dL (6.4-8.2) Albumin 3.0 g/dL (3.4-5.0) L Albumin/Globulin Ratio 0.9 (1.0-1.7) L Current Medications: Meds: Laboratory Tests Test 03/23/21 07:25 03/23/21 09:13 Glucose (Fingerstick) 110 mg/dL White Blood Count 11.0 x10^3/uL Red Blood Count 3.95 x10^6/uL Hemoglobin 12.3 g/dL Hematocrit 36.3 % Mean Corpuscular Volume 92 fL Mean Corpuscular Hemoglobin 31 pg Mean Corpuscular Hemoglobin Concent 34 g/dL Red Cell Distribution Width 13.9 % Platelet Count 257 x10^3/uL Neutrophils (%) (Auto) 68 % Lymphocytes (%) (Auto) 23 % Monocytes (%) (Auto) 7 % Eosinophils (%) (Auto) 2 % Basophils (%) (Auto) 1 % Neutrophils # (Auto) 7.4 x10^3uL Lymphocytes # (Auto) 2.6 x10^3/uL Monocytes # (Auto) 0.7 x10^3/uL Eosinophils # (Auto) 0.2 x10^3/uL Basophils # (Auto) 0.1 x10^3/uL Segmented Neutrophils % 60 % Band Neutrophils % 9 % Lymphocytes % 22 % Monocytes % 6 % Metamyelocytes % 1 % Myelocytes % 2 % Platelet Estimate Adequate Sodium Level 132 mmol/L Potassium Level 4.3 mmol/L Chloride Level 96 mmol/L Carbon Dioxide Level 30 mmol/L Anion Gap 6 Blood Urea Nitrogen 15 mg/dL Creatinine 0.7 mg/dL Estimated GFR (Cockcroft-Gault) 86.6 BUN/Creatinine Ratio 21 Glucose Level 110 mg/dL Calcium Level 9.0 mg/dL Total Bilirubin 0.2 mg/dL Aspartate Amino Transf (AST/SGOT) 8 U/L Alanine Aminotransferase (ALT/SGPT) 11 U/L Alkaline Phosphatase 90 U/L Total Protein 6.5 g/dL Albumin 3.0 g/dL Albumin/Globulin Ratio 0.9 Current Medications Medications (Trade) Dose Ordered Sig/Arnold Route PRN Reason Start Time Stop Time Status Last Admin Dose Admin Acetaminophen (Tylenol) 650 mg PRN Q6HRS PRN PO MILD PAIN / TEMP > 100.3'F 03/14/21 20:45 03/17/21 15:50 Multi-Ingredient Ointment (Analgesic Ray) 1 shwetha PRN QID PRN TP MUSCLE PAIN 03/14/21 20:45 Al Hydroxide/Mg Hydroxide (Mylanta Plus Xs) 15 ml PRN AFTMEALHC PRN PO DYSPEPSIA 03/14/21 20:45 Magnesium Hydroxide (Milk Of Magnesia) 2,400 mg PRN QHS PRN PO CONSTIPATION 03/14/21 20:45 Acetaminophen (Tylenol) 650 mg TID PRN PO Back Pain 03/14/21 21:45 UNV Ascorbic Acid (Vitamin C) 500 mg BID PO 03/15/21 09:00 03/23/21 20:39 Aspirin (Aspirin Chewable) 81 mg DAILY PO 03/15/21 09:00 03/23/21 08:23 Atorvastatin Calcium (Lipitor) 20 mg DAILY PO 03/15/21 09:00 03/23/21 08:24 Carbidopa/Levodopa (Sinemet 10/100) 1 tab TID PO 03/14/21 23:00 03/23/21 13:44 DC 03/23/21 13:34 Vitamin D (Vitamin D3) 50,000 unit QWE PO 03/20/21 16:00 03/20/21 15:16 Ferrous Sulfate (Feosol) 325 mg BID PO 03/15/21 09:00 03/23/21 20:39 Furosemide (Lasix) 20 mg DAILY PO 03/15/21 09:00 03/23/21 08:23 Gabapentin (Neurontin Oral Soln) 150 mg BID@1400,2200 PO 03/14/21 23:00 03/16/21 13:20 DC 03/14/21 23:14 Lisinopril (Prinivil) 10 mg DAILY PO 03/15/21 09:00 03/23/21 08:24 Metformin HCl (Glucophage) 500 mg BIDWMEALS PO 03/15/21 08:00 03/23/21 17:20 Metoprolol Tartrate (Lopressor) 12.5 mg BID PO 03/14/21 23:00 03/23/21 08:23 Tramadol HCl (Ultram) 50 mg PRN Q6HRS PRN PO MOD-SEV PAIN 03/14/21 21:45 03/22/21 13:41 Celecoxib (CeleBREX) 200 mg DAILY PO 03/15/21 09:00 03/23/21 08:21 Lactobacillus Rhamnosus (Culturelle) 1 cap BID PO 03/14/21 23:00 03/23/21 20:39 Pantoprazole Sodium (Protonix) 40 mg DAILY PO 03/15/21 09:00 03/23/21 08:23 Potassium Chloride (Klor-Con) 10 meq DAILY PO 03/15/21 09:00 03/23/21 08:23 Trolamine Salicylate (Myoplex) 1 shwetha TID TP 03/15/21 09:00 03/20/21 14:00 Benztropine Mesylate (Cogentin) 1 mg BID PO 03/14/21 23:00 03/23/21 20:40 Clonazepam (KlonoPIN) 2 mg BID PO 03/14/21 23:00 03/16/21 16:48 DC 03/16/21 09:00 Divalproex Sodium (Depakote Er) 1,000 mg BID PO 03/14/21 23:00 03/23/21 20:40 Fluphenazine HCl (Prolixin) 15 mg BID PO 03/14/21 23:00 03/23/21 20:39 Lorazepam (Ativan) 1 mg TID PO 03/14/21 23:00 03/16/21 18:45 DC 03/16/21 14:00 Risperidone (RisperDAL) 2 mg DAILY@1400 PO 03/15/21 14:00 03/23/21 13:34 Risperidone (RisperDAL) 4 mg QHS PO 03/14/21 23:00 03/23/21 20:39 Nicotine (Nicoderm Cq 21mg Patch) 1 patch DAILY TD 03/15/21 09:00 03/23/21 08:24 Gabapentin (Neurontin) 100 mg TID PO 03/16/21 14:00 03/23/21 20:40 Ropinirole HCl (Requip) 0.5 mg TID PO 03/16/21 21:00 03/23/21 20:39 Clonazepam (KlonoPIN) 2 mg HS PO 03/16/21 21:00 03/19/21 21:01 DC 03/18/21 21:13 Clonazepam (KlonoPIN) 1.5 mg DAILY PO 03/17/21 09:00 03/23/21 08:00 DC 03/22/21 08:04 Clonazepam (KlonoPIN) 1 mg DAILY PO 03/23/21 09:00 03/28/21 09:01 03/23/21 08:21 Clonazepam (KlonoPIN) 0.5 mg DAILY PO 03/29/21 09:00 04/03/21 09:01 Clonazepam (KlonoPIN) 1.5 mg HS PO 03/20/21 21:00 03/25/21 21:01 03/23/21 20:40 Clonazepam (KlonoPIN) 1 mg QHS PO 03/26/21 21:00 03/31/21 21:01 Clonazepam (KlonoPIN) 0.5 mg HS PO 04/01/21 21:00 04/06/21 21:01 Lorazepam (Ativan) 1 mg BID PO 03/17/21 21:00 03/19/21 21:01 DC 03/19/21 08:13 Lorazepam (Ativan) 1 mg DAILY PO 03/20/21 09:00 03/22/21 08:59 DC 03/21/21 08:36 Current Medications Medications (Trade) Dose Ordered Sig/Arnold Route PRN Reason Start Time Stop Time Status Last Admin Dose Admin Clonazepam (KlonoPIN) 1 mg DAILY PO 03/23/21 09:00 03/28/21 09:01 03/23/21 08:21 I have reviewed the current psychotropics carefully including drug interactions. Risk benefit ratio favors no change other than as noted in my dictated progress note. Diagnosis: Problems: (1) Anxiety disorder (2) Impulse control disorder (3) Schizoaffective disorder, chronic condition with acute exacerbation BESSIE SOLORIO MD Mar 23, 2021 23:15
[2021-03-24 06:32] VITALS: BP 143/85
[2021-03-24] MEDS: NICOTINE 21MG PATCH. TD SCH (08:30)
[2021-03-24] MEDS: rOPINIRole 0.5 MG TABLET. PO SCH ×3 (08:31→19:49)
[2021-03-24] MEDS: GABAPENTIN 100 MG CAPSULE. PO SCH ×3 (08:32→19:52)
[2021-03-24] MEDS: ASPIRIN CHEWABLE 81 MG TABLET. PO SCH (08:32)
[2021-03-24] MEDS: DIVALPROEX ER 500 MG TAB.ER.24H PO SCH ×2 (08:33→19:52)
[2021-03-24] MEDS: PANTOPRAZOLE 40 MG TABLET. PO SCH (08:34)
[2021-03-24] MEDS: METOPROLOL TART IMMED RELEASE 25 MG TABLET. PO SCH ×2 (08:34→19:51)
[2021-03-24] MEDS: LACTOBACILLUS RHAMNOSUS GG 1 CAPSULE. PO SCH ×2 (08:35→19:50)
[2021-03-24] MEDS: FUROSEMIDE 20 MG TABLET PO SCH (08:35)
[2021-03-24] MEDS: FERROUS SULFATE 325 MG TABLET. PO SCH ×2 (08:35→19:52)
[2021-03-24] MEDS: ASCORBIC ACID 500 MG TABLET PO SCH ×2 (08:35→19:52)
[2021-03-24] MEDS: LISINOPRIL 10 MG TABLET PO SCH (08:35)
[2021-03-24] MEDS: metFORMIN 500 MG TABLET PO SCH ×2 (08:35→17:15)
[2021-03-24] MEDS: POTASSIUM CHLORIDE 10 MEQ TABLET.ER. PO SCH (08:36)
[2021-03-24] MEDS: CELECOXIB 100 MG CAPSULE PO SCH (08:36)
[2021-03-24] MEDS: ATORVASTATIN CALCIUM 20 MG TABLET PO SCH (08:36)
[2021-03-24] MEDS: BENZTROPINE MESYLATE 1 MG TABLET PO SCH ×2 (08:37→19:52)
[2021-03-24] MEDS: clonazePAM 1 MG TABLET PO SCH ×2 (08:38→19:55)
[2021-03-24] MEDS: TROLAMINE SALICYLATE 10% TOPICAL CREAM 85GM JAR. TP SCH ×3 (08:43→20:01)
--- NOTE | 2021-03-24 10:08 | NUR ---
Nursing note: Pt in dining room for AM med pass and assessment. She was compliant in taking her meds and cooperative with assessment. She denies having any pain. Pt has been interactive with staff and peers this shift and has been observed laughing with other pt's. She is currently sitting quietly in her room. Will continue to monitor.
[2021-03-24] MEDS: risperiDONE 2 MG TABLET. PO SCH ×2 (12:35→19:52)
[2021-03-24] MEDS: traMADol 50 MG TABLET PO PRN (13:15)
[2021-03-24 15:43] VITALS: BP 140/80
--- NOTE | 2021-03-25 02:30 | NUR ---
At med pass pt was social with staff and peers. She took her meds whole without difficulty and has been cooperative with cares. She was overheard saying that she needs casts on her legs because they are both broken.
[2021-03-25 05:54] VITALS: BP 130/73
[2021-03-25] MEDS: rOPINIRole 0.5 MG TABLET. PO SCH ×3 (08:46→19:54)
[2021-03-25] MEDS: NICOTINE 21MG PATCH. TD SCH (08:46)
[2021-03-25] MEDS: LISINOPRIL 10 MG TABLET PO SCH (08:46)
[2021-03-25] MEDS: FUROSEMIDE 20 MG TABLET PO SCH (08:47)
[2021-03-25] MEDS: CELECOXIB 100 MG CAPSULE PO SCH (08:47)
[2021-03-25] MEDS: ASPIRIN CHEWABLE 81 MG TABLET. PO SCH (08:47)
[2021-03-25] MEDS: LACTOBACILLUS RHAMNOSUS GG 1 CAPSULE. PO SCH ×2 (08:47→19:54)
[2021-03-25] MEDS: BENZTROPINE MESYLATE 1 MG TABLET PO SCH ×2 (08:48→19:54)
[2021-03-25] MEDS: FERROUS SULFATE 325 MG TABLET. PO SCH ×2 (08:48→19:54)
[2021-03-25] MEDS: PANTOPRAZOLE 40 MG TABLET. PO SCH (08:48)
[2021-03-25] MEDS: metFORMIN 500 MG TABLET PO SCH ×2 (08:48→17:13)
[2021-03-25] MEDS: DIVALPROEX ER 500 MG TAB.ER.24H PO SCH ×2 (08:48→19:56)
[2021-03-25] MEDS: ASCORBIC ACID 500 MG TABLET PO SCH ×2 (08:48→19:54)
[2021-03-25] MEDS: ATORVASTATIN CALCIUM 20 MG TABLET PO SCH (08:49)
[2021-03-25] MEDS: GABAPENTIN 100 MG CAPSULE. PO SCH ×3 (08:49→19:54)
[2021-03-25] MEDS: clonazePAM 1 MG TABLET PO SCH ×2 (08:49→19:56)
[2021-03-25] MEDS: POTASSIUM CHLORIDE 10 MEQ TABLET.ER. PO SCH (08:49)
[2021-03-25] MEDS: METOPROLOL TART IMMED RELEASE 25 MG TABLET. PO SCH ×2 (08:53→19:55)
[2021-03-25] MEDS: TROLAMINE SALICYLATE 10% TOPICAL CREAM 85GM JAR. TP SCH ×3 (08:53→20:01)
--- NOTE | 2021-03-25 09:16 | PDOC ---
Exam Note: Timothy Note: This note is a late entry for 03/23/2021 covers elements not covered in my initial note. Subjective: The patient was seen on telehealth rounds in the evening of 03/23/2021 with the nursing staff taking the telehealth camera to each patient, which was on a secure portal, discussed and reviewed the chart with Amara DORAN. She slept 7-1/2 hours previous night. The patient has been trying to kiss one of the other male patients on the unit with whom [facility]. She is resistive to medications, continues to have significant mood lability, laughing impulsively at times, then crying and tearful. We will check with the pharmacist as we are reducing the benzodiazepines whether we can start the Clozaril or whether we should wait till we have the patient completely off the benzodiazepines before starting Clozaril. Dr. Kyle, Neurology did stop the patients Sinemet. It was at a rather low dosage, relatively ineffective. Review of Systems: Ambulation impaired in wheelchair. No CV, , pulmonary, eye, ENT system symptoms on review. Reliability varies. Mental Status Exam: The patient is oriented to herself and situation. She does complain of ongoing pain. Speech coherent, rapid at times. Abstraction fair. Computation impaired. Language function intact. Attention span short. Mood and affect remains labile. Laboratory Data: Reviewed. Impression: Schizoaffective disorder bipolar type, mixed with psychotic featu res. Anxiety disorder unspecified. Impulse control disorder unspecified. Plan: No change from initial note. Continue to taper and stop the benzodiazepines and start the Clozaril. Maintain Depakote, level is therapeutic at 84. Assessment: Vital Signs/I&O: Vital Signs Date Time Temp Pulse Resp B/P (MAP) Pulse Ox O2 Delivery O2 Flow Rate FiO2 03/25/21 08:53 74 130/73 03/25/21 05:54 97.5 18 91 03/24/21 15:43 Room Air 03/19/21 10:38 99.0 I & O 03/24/21 03/24/21 03/25/21 15:00 23:00 07:00 Intake Total 960 ml 720 ml Balance 960 ml 720 ml Labs: Laboratory Tests Test 03/25/21 07:21 Glucose (Fingerstick) 97 mg/dL (70-99) Current Medications: Meds: Laboratory Tests Test 03/25/21 07:21 Glucose (Fingerstick) 97 mg/dL Current Medications Medications (Trade) Dose Ordered Sig/Arnold Route PRN Reason Start Time Stop Time Status Last Admin Dose Admin Acetaminophen (Tylenol) 650 mg PRN Q6HRS PRN PO MILD PAIN / TEMP > 100.3'F 03/14/21 20:45 03/17/21 15:50 Multi-Ingredient Ointment (Analgesic [place]) 1 shwetha PRN QID PRN TP MUSCLE PAIN 03/14/21 20:45 Al Hydroxide/Mg Hydroxide (Mylanta Plus Xs) 15 ml PRN AFTMEALHC PRN PO DYSPEPSIA 03/14/21 20:45 Magnesium Hydroxide (Milk Of Magnesia) 2,400 mg PRN QHS PRN PO CONSTIPATION 03/14/21 20:45 Acetaminophen (Tylenol) 650 mg TID PRN PO Back Pain 03/14/21 21:45 UNV Ascorbic Acid (Vitamin C) 500 mg BID PO 03/15/21 09:00 03/25/21 08:48 Aspirin (Aspirin Chewable) 81 mg DAILY PO 03/15/21 09:00 03/25/21 08:47 Atorvastatin Calcium (Lipitor) 20 mg DAILY PO 03/15/21 09:00 03/25/21 08:49 Carbidopa/Levodopa (Sinemet 10/100) 1 tab TID PO 03/14/21 23:00 03/23/21 13:44 DC 03/23/21 13:34 Vitamin D (Vitamin D3) 50,000 unit QWE PO 03/20/21 16:00 03/20/21 15:16 Ferrous Sulfate (Feosol) 325 mg BID PO 03/15/21 09:00 03/25/21 08:48 Furosemide (Lasix) 20 mg DAILY PO 03/15/21 09:00 03/25/21 08:47 Gabapentin (Neurontin Oral Soln) 150 mg BID@1400,2200 PO 03/14/21 23:00 03/16/21 13:20 DC 03/14/21 23:14 Lisinopril (Prinivil) 10 mg DAILY PO 03/15/21 09:00 03/25/21 08:46 Metformin HCl (Glucophage) 500 mg BIDWMEALS PO 03/15/21 08:00 03/25/21 08:48 Metoprolol Tartrate (Lopressor) 12.5 mg BID PO 03/14/21 23:00 03/25/21 08:53 Tramadol HCl (Ultram) 50 mg PRN Q6HRS PRN PO MOD-SEV PAIN 03/14/21 21:45 03/24/21 13:15 Celecoxib (CeleBREX) 200 mg DAILY PO 03/15/21 09:00 03/25/21 08:47 Lactobacillus Rhamnosus (Culturelle) 1 cap BID PO 03/14/21 23:00 03/25/21 08:47 Pantoprazole Sodium (Protonix) 40 mg DAILY PO 03/15/21 09:00 03/25/21 08:48 Potassium Chloride (Klor-Con) 10 meq DAILY PO 03/15/21 09:00 03/25/21 08:49 Trolamine Salicylate (Myoplex) 1 shwetha TID TP 03/15/21 09:00 03/24/21 08:43 Benztropine Mesylate (Cogentin) 1 mg BID PO 03/14/21 23:00 03/25/21 08:48 Clonazepam (KlonoPIN) 2 mg BID PO 03/14/21 23:00 03/16/21 16:48 DC 03/16/21 09:00 Divalproex Sodium (Depakote Er) 1,000 mg BID PO 03/14/21 23:00 03/25/21 08:48 Fluphenazine HCl (Prolixin) 15 mg BID PO 03/14/21 23:00 03/25/21 08:47 Lorazepam (Ativan) 1 mg TID PO 03/14/21 23:00 03/16/21 18:45 DC 03/16/21 14:00 Risperidone (RisperDAL) 2 mg DAILY@1400 PO 03/15/21 14:00 03/24/21 12:35 Risperidone (RisperDAL) 4 mg QHS PO 03/14/21 23:00 03/24/21 19:52 Nicotine (Nicoderm Cq 21mg Patch) 1 patch DAILY TD 03/15/21 09:00 03/25/21 08:46 Gabapentin (Neurontin) 100 mg TID PO 03/16/21 14:00 03/25/21 08:49 Ropinirole HCl (Requip) 0.5 mg TID PO 03/16/21 21:00 03/25/21 08:46 Clonazepam (KlonoPIN) 2 mg HS PO 03/16/21 21:00 03/19/21 21:01 DC 03/18/21 21:13 Clonazepam (KlonoPIN) 1.5 mg DAILY PO 03/17/21 09:00 03/23/21 08:00 DC 03/22/21 08:04 Clonazepam (KlonoPIN) 1 mg DAILY PO 03/23/21 09:00 03/28/21 09:01 03/25/21 08:49 Clonazepam (KlonoPIN) 0.5 mg DAILY PO 03/29/21 09:00 04/03/21 09:01 Clonazepam (KlonoPIN) 1.5 mg HS PO 03/20/21 21:00 03/25/21 21:01 03/24/21 19:55 Clonazepam (KlonoPIN) 1 mg QHS PO 03/26/21 21:00 03/31/21 21:01 Clonazepam (KlonoPIN) 0.5 mg HS PO 04/01/21 21:00 04/06/21 21:01 Lorazepam (Ativan) 1 mg BID PO 03/17/21 21:00 03/19/21 21:01 DC 03/19/21 08:13 Lorazepam (Ativan) 1 mg DAILY PO 03/20/21 09:00 03/22/21 08:59 DC 03/21/21 08:36 I have reviewed the current psychotropics carefully including drug interactions. Risk benefit ratio favors no change other than as noted in my dictated progress note. Diagnosis: Problems: (1) Anxiety disorder (2) Impulse control disorder (3) Schizoaffective disorder, chronic condition with acute exacerbation BESSIE SOLORIO MD Mar 25, 2021 09:16
[2021-03-25] MEDS: risperiDONE 2 MG TABLET. PO SCH ×2 (12:59→19:59)
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
[2021-03-25 15:39] VITALS: BP 108/67
--- NOTE | 2021-03-25 22:04 | PDOC ---
Exam Note: Timothy Note: Please also refer to the separate dictated note~for this date of service dictated separately.~Patient seen individually. Discussed the patient with Nursing staff reviewed the chart.~Reviewed interim history and current functioning. Reviewed vital signs,~Labs/ Radiology~and current medications noted below. Continue current treatment with the changes noted in the dictated addendum note Assessment: Vital Signs/I&O: Vital Signs Date Time Temp Pulse Resp B/P (MAP) Pulse Ox O2 Delivery O2 Flow Rate FiO2 03/25/21 19:55 77 108/67 03/25/21 15:39 97.0 16 99 03/24/21 15:43 Room Air 03/19/21 10:38 99.0 I & O 03/24/21 03/24/21 03/25/21 15:00 23:00 07:00 Intake Total 960 ml 720 ml Balance 960 ml 720 ml Labs: Laboratory Tests Test 03/25/21 07:21 Glucose (Fingerstick) 97 mg/dL (70-99) Current Medications: Meds: Laboratory Tests Test 03/25/21 07:21 Glucose (Fingerstick) 97 mg/dL Current Medications Medications (Trade) Dose Ordered Sig/Arnold Route PRN Reason Start Time Stop Time Status Last Admin Dose Admin Acetaminophen (Tylenol) 650 mg PRN Q6HRS PRN PO MILD PAIN / TEMP > 100.3'F 03/14/21 20:45 03/17/21 15:50 Multi-Ingredient Ointment (Analgesic [place]) 1 shwetha PRN QID PRN TP MUSCLE PAIN 03/14/21 20:45 Al Hydroxide/Mg Hydroxide (Mylanta Plus Xs) 15 ml PRN AFTMEALHC PRN PO DYSPEPSIA 03/14/21 20:45 Magnesium Hydroxide (Milk Of Magnesia) 2,400 mg PRN QHS PRN PO CONSTIPATION 03/14/21 20:45 Acetaminophen (Tylenol) 650 mg TID PRN PO Back Pain 03/14/21 21:45 UNV Ascorbic Acid (Vitamin C) 500 mg BID PO 03/15/21 09:00 03/25/21 19:54 Aspirin (Aspirin Chewable) 81 mg DAILY PO 03/15/21 09:00 03/25/21 08:47 Atorvastatin Calcium (Lipitor) 20 mg DAILY PO 03/15/21 09:00 03/25/21 08:49 Carbidopa/Levodopa (Sinemet 10/100) 1 tab TID PO 03/14/21 23:00 03/23/21 13:44 DC 03/23/21 13:34 Vitamin D (Vitamin D3) 50,000 unit QWE PO 03/20/21 16:00 03/20/21 15:16 Ferrous Sulfate (Feosol) 325 mg BID PO 03/15/21 09:00 03/25/21 19:54 Furosemide (Lasix) 20 mg DAILY PO 03/15/21 09:00 03/25/21 08:47 Gabapentin (Neurontin Oral Soln) 150 mg BID@1400,2200 PO 03/14/21 23:00 03/16/21 13:20 DC 03/14/21 23:14 Lisinopril (Prinivil) 10 mg DAILY PO 03/15/21 09:00 03/25/21 08:46 Metformin HCl (Glucophage) 500 mg BIDWMEALS PO 03/15/21 08:00 03/25/21 17:13 Metoprolol Tartrate (Lopressor) 12.5 mg BID PO 03/14/21 23:00 03/25/21 19:55 Tramadol HCl (Ultram) 50 mg PRN Q6HRS PRN PO MOD-SEV PAIN 03/14/21 21:45 03/24/21 13:15 Celecoxib (CeleBREX) 200 mg DAILY PO 03/15/21 09:00 03/25/21 08:47 Lactobacillus Rhamnosus (Culturelle) 1 cap BID PO 03/14/21 23:00 03/25/21 19:54 Pantoprazole Sodium (Protonix) 40 mg DAILY PO 03/15/21 09:00 03/25/21 08:48 Potassium Chloride (Klor-Con) 10 meq DAILY PO 03/15/21 09:00 03/25/21 08:49 Trolamine Salicylate (Myoplex) 1 shwetha TID TP 03/15/21 09:00 03/24/21 08:43 Benztropine Mesylate (Cogentin) 1 mg BID PO 03/14/21 23:00 03/25/21 19:54 Clonazepam (KlonoPIN) 2 mg BID PO 03/14/21 23:00 03/16/21 16:48 DC 03/16/21 09:00 Divalproex Sodium (Depakote Er) 1,000 mg BID PO 03/14/21 23:00 03/25/21 19:56 Fluphenazine HCl (Prolixin) 15 mg BID PO 03/14/21 23:00 03/25/21 19:54 Lorazepam (Ativan) 1 mg TID PO 03/14/21 23:00 03/16/21 18:45 DC 03/16/21 14:00 Risperidone (RisperDAL) 2 mg DAILY@1400 PO 03/15/21 14:00 03/25/21 12:59 Risperidone (RisperDAL) 4 mg QHS PO 03/14/21 23:00 03/25/21 19:59 Nicotine (Nicoderm Cq 21mg Patch) 1 patch DAILY TD 03/15/21 09:00 03/25/21 08:46 Gabapentin (Neurontin) 100 mg TID PO 03/16/21 14:00 03/25/21 19:54 Ropinirole HCl (Requip) 0.5 mg TID PO 03/16/21 21:00 03/25/21 19:54 Clonazepam (KlonoPIN) 2 mg HS PO 03/16/21 21:00 03/19/21 21:01 DC 03/18/21 21:13 Clonazepam (KlonoPIN) 1.5 mg DAILY PO 03/17/21 09:00 03/23/21 08:00 DC 03/22/21 08:04 Clonazepam (KlonoPIN) 1 mg DAILY PO 03/23/21 09:00 03/28/21 09:01 03/25/21 08:49 Clonazepam (KlonoPIN) 0.5 mg DAILY PO 03/29/21 09:00 04/03/21 09:01 Clonazepam (KlonoPIN) 1.5 mg HS PO 03/20/21 21:00 03/25/21 21:01 DC 03/25/21 19:56 Clonazepam (KlonoPIN) 1 mg QHS PO 03/26/21 21:00 03/31/21 21:01 Clonazepam (KlonoPIN) 0.5 mg HS PO 04/01/21 21:00 04/06/21 21:01 Lorazepam (Ativan) 1 mg BID PO 03/17/21 21:00 03/19/21 21:01 DC 03/19/21 08:13 Lorazepam (Ativan) 1 mg DAILY PO 03/20/21 09:00 03/22/21 08:59 DC 03/21/21 08:36 I have reviewed the current psychotropics carefully including drug interactions. Risk benefit ratio favors no change other than as noted in my dictated progress note. Diagnosis: Problems: (1) Anxiety disorder (2) Impulse control disorder (3) Schizoaffective disorder, chronic condition with acute exacerbation BESSIE SOLORIO MD Mar 25, 2021 22:04
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
[2021-03-26 05:47] VITALS: BP 148/72
[2021-03-26] MEDS: NICOTINE 21MG PATCH. TD SCH (08:28)
[2021-03-26] MEDS: rOPINIRole 0.5 MG TABLET. PO SCH ×3 (08:29→20:13)
[2021-03-26] MEDS: GABAPENTIN 100 MG CAPSULE. PO SCH ×3 (08:29→20:13)
[2021-03-26] MEDS: metFORMIN 500 MG TABLET PO SCH ×2 (08:29→17:11)
[2021-03-26] MEDS: ASCORBIC ACID 500 MG TABLET PO SCH ×2 (08:30→20:13)
[2021-03-26] MEDS: BENZTROPINE MESYLATE 1 MG TABLET PO SCH ×2 (08:30→20:13)
[2021-03-26] MEDS: CELECOXIB 100 MG CAPSULE PO SCH (08:30)
[2021-03-26] MEDS: PANTOPRAZOLE 40 MG TABLET. PO SCH (08:30)
[2021-03-26] MEDS: FUROSEMIDE 20 MG TABLET PO SCH (08:31)
[2021-03-26] MEDS: POTASSIUM CHLORIDE 10 MEQ TABLET.ER. PO SCH (08:31)
[2021-03-26] MEDS: DIVALPROEX ER 500 MG TAB.ER.24H PO SCH ×2 (08:31→20:13)
[2021-03-26] MEDS: ATORVASTATIN CALCIUM 20 MG TABLET PO SCH (08:33)
[2021-03-26] MEDS: clonazePAM 1 MG TABLET PO SCH (08:33)
[2021-03-26] MEDS: FERROUS SULFATE 325 MG TABLET. PO SCH ×2 (08:33→20:13)
[2021-03-26] MEDS: ASPIRIN CHEWABLE 81 MG TABLET. PO SCH (08:33)
[2021-03-26] MEDS: LISINOPRIL 10 MG TABLET PO SCH (08:33)
[2021-03-26] MEDS: LACTOBACILLUS RHAMNOSUS GG 1 CAPSULE. PO SCH ×2 (08:34→20:13)
[2021-03-26] MEDS: METOPROLOL TART IMMED RELEASE 25 MG TABLET. PO SCH ×2 (08:39→20:14)
[2021-03-26] MEDS: TROLAMINE SALICYLATE 10% TOPICAL CREAM 85GM JAR. TP SCH ×3 (09:00→20:15)
--- NOTE | 2021-03-26 09:36 | PDOC ---
Exam Note: Timothy Note: This note is a late entry for 03/24/2021 covers elements not covered in my initial note. Subjective: The patient was seen on telehealth rounds in the afternoon of 03/24/2021 with the nursing staff taking the telehealth camera to each patient, which was on a secure portal, discussed and reviewed the chart with Amara DORAN. She slept 7-1/2 hours previous night. We did check with the pharmacist who did some research and in fact we have to taper and stop both Klonopin and Ativan before we can start the Clozaril. We are waiting to do this. Previous night she was quite upset that she has to take some different pills. I have discussed this with her that in fact we are tapering her benzodiazepines. She seems to have marked mood lability and nursing staff wondered about pseudobulbar affect. She has been laughing inappropriately at times. No crying today. Review of Systems: Ambulation impaired in wheelchair. No CV, , pulmonary, eye, ENT system symptoms on review. Reliability varies. Mental Status Exam: The patient is alert and oriented to herself. Speech coherent. Abstraction fair. Computation impaired. Language function intact. Attention span short. Mood and affect remains somewhat labile. No suicidal or homicidal ideation. Laboratory Data: Reviewed. Impression: Schizoaffective disorder bipolar type, mixed with psychotic features. Anxiety disorder unspecified. Impulse control disorder unspecified. Plan: Continue current psychotropics. Taper and stop the benzodiazepines and start the Clozaril. Rest unchanged for now. Assessment: Vital Signs/I&O: Vital Signs Date Time Temp Pulse Resp B/P (MAP) Pulse Ox O2 Delivery O2 Flow Rate FiO2 03/26/21 08:39 64 148/72 03/26/21 05:47 97.7 18 92 03/24/21 15:43 Room Air I & O 03/25/21 03/25/21 03/26/21 14:59 22:59 06:59 Intake Total 840 ml 600 ml Balance 840 ml 600 ml Labs: Laboratory Tests Test 03/26/21 08:02 Glucose (Fingerstick) 103 mg/dL (70-99) H Current Medications: Meds: Laboratory Tests Test 03/26/21 08:02 Glucose (Fingerstick) 103 mg/dL Current Medications Medications (Trade) Dose Ordered Sig/Arnold Route PRN Reason Start Time Stop Time Status Last Admin Dose Admin Acetaminophen (Tylenol) 650 mg PRN Q6HRS PRN PO MILD PAIN / TEMP > 100.3'F 03/14/21 20:45 03/17/21 15:50 Multi-Ingredient Ointment (Analgesic [place]) 1 shwetha PRN QID PRN TP MUSCLE PAIN 03/14/21 20:45 Al Hydroxide/Mg Hydroxide (Mylanta Plus Xs) 15 ml PRN AFTMEALHC PRN PO DYSPEPSIA 03/14/21 20:45 Magnesium Hydroxide (Milk Of Magnesia) 2,400 mg PRN QHS PRN PO CONSTIPATION 03/14/21 20:45 Acetaminophen (Tylenol) 650 mg TID PRN PO Back Pain 03/14/21 21:45 UNV Ascorbic Acid (Vitamin C) 500 mg BID PO 03/15/21 09:00 03/26/21 08:30 Aspirin (Aspirin Chewable) 81 mg DAILY PO 03/15/21 09:00 03/26/21 08:33 Atorvastatin Calcium (Lipitor) 20 mg DAILY PO 03/15/21 09:00 03/26/21 08:33 Carbidopa/Levodopa (Sinemet 10/100) 1 tab TID PO 03/14/21 23:00 03/23/21 13:44 DC 03/23/21 13:34 Vitamin D (Vitamin D3) 50,000 unit QWE PO 03/20/21 16:00 03/20/21 15:16 Ferrous Sulfate (Feosol) 325 mg BID PO 03/15/21 09:00 03/26/21 08:33 Furosemide (Lasix) 20 mg DAILY PO 03/15/21 09:00 03/26/21 08:31 Gabapentin (Neurontin Oral Soln) 150 mg BID@1400,2200 PO 03/14/21 23:00 03/16/21 13:20 DC 03/14/21 23:14 Lisinopril (Prinivil) 10 mg DAILY PO 03/15/21 09:00 03/26/21 08:33 Metformin HCl (Glucophage) 500 mg BIDWMEALS PO 03/15/21 08:00 03/26/21 08:29 Metoprolol Tartrate (Lopressor) 12.5 mg BID PO 03/14/21 23:00 03/26/21 08:39 Tramadol HCl (Ultram) 50 mg PRN Q6HRS PRN PO MOD-SEV PAIN 03/14/21 21:45 03/24/21 13:15 Celecoxib (CeleBREX) 200 mg DAILY PO 03/15/21 09:00 03/26/21 08:30 Lactobacillus Rhamnosus (Culturelle) 1 cap BID PO 03/14/21 23:00 03/26/21 08:34 Pantoprazole Sodium (Protonix) 40 mg DAILY PO 03/15/21 09:00 03/26/21 08:30 Potassium Chloride (Klor-Con) 10 meq DAILY PO 03/15/21 09:00 03/26/21 08:31 Trolamine Salicylate (Myoplex) 1 shwetha TID TP 03/15/21 09:00 03/24/21 08:43 Benztropine Mesylate (Cogentin) 1 mg BID PO 03/14/21 23:00 03/26/21 08:30 Clonazepam (KlonoPIN) 2 mg BID PO 03/14/21 23:00 03/16/21 16:48 DC 03/16/21 09:00 Divalproex Sodium (Depakote Er) 1,000 mg BID PO 03/14/21 23:00 03/26/21 08:31 Fluphenazine HCl (Prolixin) 15 mg BID PO 03/14/21 23:00 03/26/21 08:30 Lorazepam (Ativan) 1 mg TID PO 03/14/21 23:00 03/16/21 18:45 DC 03/16/21 14:00 Risperidone (RisperDAL) 2 mg DAILY@1400 PO 03/15/21 14:00 03/25/21 12:59 Risperidone (RisperDAL) 4 mg QHS PO 03/14/21 23:00 03/25/21 19:59 Nicotine (Nicoderm Cq 21mg Patch) 1 patch DAILY TD 03/15/21 09:00 03/26/21 08:28 Gabapentin (Neurontin) 100 mg TID PO 03/16/21 14:00 03/26/21 08:29 Ropinirole HCl (Requip) 0.5 mg TID PO 03/16/21 21:00 03/26/21 08:29 Clonazepam (KlonoPIN) 2 mg HS PO 03/16/21 21:00 03/19/21 21:01 DC 03/18/21 21:13 Clonazepam (KlonoPIN) 1.5 mg DAILY PO 03/17/21 09:00 03/23/21 08:00 DC 03/22/21 08:04 Clonazepam (KlonoPIN) 1 mg DAILY PO 03/23/21 09:00 03/28/21 09:01 03/26/21 08:33 Clonazepam (KlonoPIN) 0.5 mg DAILY PO 03/29/21 09:00 04/03/21 09:01 Clonazepam (KlonoPIN) 1.5 mg HS PO 03/20/21 21:00 03/25/21 21:01 DC 03/25/21 19:56 Clonazepam (KlonoPIN) 1 mg QHS PO 03/26/21 21:00 03/31/21 21:01 Clonazepam (KlonoPIN) 0.5 mg HS PO 04/01/21 21:00 04/06/21 21:01 Lorazepam (Ativan) 1 mg BID PO 03/17/21 21:00 03/19/21 21:01 DC 03/19/21 08:13 Lorazepam (Ativan) 1 mg DAILY PO 03/20/21 09:00 03/22/21 08:59 DC 03/21/21 08:36 I have reviewed the current psychotropics carefully including drug interactions. Risk benefit ratio favors no change other than as noted in my dictated progress note. Diagnosis: Problems: (1) Anxiety disorder (2) Impulse control disorder (3) Schizoaffective disorder, chronic condition with acute exacerbation BESSIE SOLORIO MD Mar 26, 2021 09:36
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
--- NOTE | 2021-03-26 11:59 | NUR ---
Nurse Note Patient in bed after breakfast. Patient received all medications.Patient continues with laughing and crying at times. When asked what is wrong" she replies with different comments like kathleen did it and laugh" She playing with my vagina" When redirected patient is tearful. No complaints of pain at this time. Patient continue to refuse cream for pain relief. Minimal assist with ADLS
[2021-03-26] MEDS: risperiDONE 2 MG TABLET. PO SCH ×2 (13:10→20:13)
[2021-03-26] MEDS: traMADol 50 MG TABLET PO PRN (13:11)
--- NOTE | 2021-03-26 13:23 | NUR ---
Nurse note Patient complaining of shoulder pain bilaterally. Offered topical cream and patient refused. patient received tramadol prn for pain. Patient up in wheelchair in day room for group at this time.
--- NOTE | 2021-03-26 13:57 | NUR ---
FATOUMATA faxed over updated nursing and psychiatry notes to [facility] on 10th (pt placement). FATOUMATA also attempted to contact pt guardian, Coral, and left a message asking for Coral to contact FATOUMATA when possible for an update on pt behaviors.
[2021-03-26 15:57] VITALS: BP 118/81
[2021-03-26] MEDS ORDERED: clonazePAM 1 MG TABLET PO SCH (21:00)
--- NOTE | 2021-03-26 22:03 | PDOC ---
Exam Note: Timothy Note: Please also refer to the separate dictated note~for this date of service dictated separately.~Patient seen individually. Discussed the patient with Nursing staff reviewed the chart.~Reviewed interim history and current functioning. Reviewed vital signs,~Labs/ Radiology~and current medications noted below. Continue current treatment with the changes noted in the dictated addendum note Assessment: Vital Signs/I&O: Vital Signs Date Time Temp Pulse Resp B/P (MAP) Pulse Ox O2 Delivery O2 Flow Rate FiO2 03/26/21 20:14 77 118/81 03/26/21 15:57 97.4 16 98 03/26/21 14:33 Room Air 03/26/21 13:11 2.0 I & O 03/25/21 03/25/21 03/26/21 15:00 23:00 07:00 Intake Total 840 ml 600 ml Balance 840 ml 600 ml Labs: Laboratory Tests Test 03/26/21 08:02 Glucose (Fingerstick) 103 mg/dL (70-99) H Current Medications: Meds: Laboratory Tests Test 03/26/21 08:02 Glucose (Fingerstick) 103 mg/dL Current Medications Medications (Trade) Dose Ordered Sig/Arnold Route PRN Reason Start Time Stop Time Status Last Admin Dose Admin Acetaminophen (Tylenol) 650 mg PRN Q6HRS PRN PO MILD PAIN / TEMP > 100.3'F 03/14/21 20:45 03/17/21 15:50 Multi-Ingredient Ointment (Analgesic [place]) 1 shwetha PRN QID PRN TP MUSCLE PAIN 03/14/21 20:45 Al Hydroxide/Mg Hydroxide (Mylanta Plus Xs) 15 ml PRN AFTMEALHC PRN PO DYSPEPSIA 03/14/21 20:45 Magnesium Hydroxide (Milk Of Magnesia) 2,400 mg PRN QHS PRN PO CONSTIPATION 03/14/21 20:45 Acetaminophen (Tylenol) 650 mg TID PRN PO Back Pain 03/14/21 21:45 UNV Ascorbic Acid (Vitamin C) 500 mg BID PO 03/15/21 09:00 03/26/21 20:13 Aspirin (Aspirin Chewable) 81 mg DAILY PO 03/15/21 09:00 03/26/21 08:33 Atorvastatin Calcium (Lipitor) 20 mg DAILY PO 03/15/21 09:00 03/26/21 08:33 Carbidopa/Levodopa (Sinemet 10/100) 1 tab TID PO 03/14/21 23:00 03/23/21 13:44 DC 03/23/21 13:34 Vitamin D (Vitamin D3) 50,000 unit QWE PO 03/20/21 16:00 03/20/21 15:16 Ferrous Sulfate (Feosol) 325 mg BID PO 03/15/21 09:00 03/26/21 20:13 Furosemide (Lasix) 20 mg DAILY PO 03/15/21 09:00 03/26/21 08:31 Gabapentin (Neurontin Oral Soln) 150 mg BID@1400,2200 PO 03/14/21 23:00 03/16/21 13:20 DC 03/14/21 23:14 Lisinopril (Prinivil) 10 mg DAILY PO 03/15/21 09:00 03/26/21 08:33 Metformin HCl (Glucophage) 500 mg BIDWMEALS PO 03/15/21 08:00 03/26/21 17:11 Metoprolol Tartrate (Lopressor) 12.5 mg BID PO 03/14/21 23:00 03/26/21 20:14 Tramadol HCl (Ultram) 50 mg PRN Q6HRS PRN PO MOD-SEV PAIN 03/14/21 21:45 03/26/21 13:11 Celecoxib (CeleBREX) 200 mg DAILY PO 03/15/21 09:00 03/26/21 08:30 Lactobacillus Rhamnosus (Culturelle) 1 cap BID PO 03/14/21 23:00 03/26/21 20:13 Pantoprazole Sodium (Protonix) 40 mg DAILY PO 03/15/21 09:00 03/26/21 08:30 Potassium Chloride (Klor-Con) 10 meq DAILY PO 03/15/21 09:00 03/26/21 08:31 Trolamine Salicylate (Myoplex) 1 shwetha TID TP 03/15/21 09:00 03/26/21 20:15 Benztropine Mesylate (Cogentin) 1 mg BID PO 03/14/21 23:00 03/26/21 20:13 Clonazepam (KlonoPIN) 2 mg BID PO 03/14/21 23:00 03/16/21 16:48 DC 03/16/21 09:00 Divalproex Sodium (Depakote Er) 1,000 mg BID PO 03/14/21 23:00 03/26/21 20:13 Fluphenazine HCl (Prolixin) 15 mg BID PO 03/14/21 23:00 03/26/21 20:14 Lorazepam (Ativan) 1 mg TID PO 03/14/21 23:00 03/16/21 18:45 DC 03/16/21 14:00 Risperidone (RisperDAL) 2 mg DAILY@1400 PO 03/15/21 14:00 03/26/21 13:10 Risperidone (RisperDAL) 4 mg QHS PO 03/14/21 23:00 03/26/21 20:13 Nicotine (Nicoderm Cq 21mg Patch) 1 patch DAILY TD 03/15/21 09:00 03/26/21 08:28 Gabapentin (Neurontin) 100 mg TID PO 03/16/21 14:00 03/26/21 20:13 Ropinirole HCl (Requip) 0.5 mg TID PO 03/16/21 21:00 03/26/21 20:13 Clonazepam (KlonoPIN) 2 mg HS PO 03/16/21 21:00 03/19/21 21:01 DC 03/18/21 21:13 Clonazepam (KlonoPIN) 1.5 mg DAILY PO 03/17/21 09:00 03/23/21 08:00 DC 03/22/21 08:04 Clonazepam (KlonoPIN) 1 mg DAILY PO 03/23/21 09:00 03/26/21 15:27 DC 03/26/21 08:33 Clonazepam (KlonoPIN) 0.5 mg DAILY PO 03/29/21 09:00 03/26/21 15:27 DC Clonazepam (KlonoPIN) 1.5 mg HS PO 03/20/21 21:00 03/25/21 21:01 DC 03/25/21 19:56 Clonazepam (KlonoPIN) 1 mg QHS PO 03/26/21 21:00 03/26/21 15:27 DC Clonazepam (KlonoPIN) 0.5 mg HS PO 04/01/21 21:00 03/26/21 15:27 DC Lorazepam (Ativan) 1 mg BID PO 03/17/21 21:00 03/19/21 21:01 DC 03/19/21 08:13 Lorazepam (Ativan) 1 mg DAILY PO 03/20/21 09:00 03/22/21 08:59 DC 03/21/21 08:36 Clonazepam (KlonoPIN) 0.5 mg DAILY PO 03/27/21 09:00 03/28/21 21:00 Clozapine (Clozaril) 25 mg HS PO 03/29/21 21:00 I have reviewed the current psychotropics carefully including drug interactions. Risk benefit ratio favors no change other than as noted in my dictated progress note. Diagnosis: Problems: (1) Anxiety disorder (2) Impulse control disorder (3) Schizoaffective disorder, chronic condition with acute exacerbation BESSIE SOLORIO MD Mar 26, 2021 22:03
--- NOTE | 2021-03-26 22:57 | NUR ---
Nursing Note Pt on the patio during assessment. Pt is confused with rapid fire speech pattern. She is tangential, hyperverbal and intrusive with staff. Pt delusional tells a peer and a staff that I called the police on her that they are coming to search her belongings etc. Assured her no one called PD and no one will call the PD. Pt med compliant taking all pills at once.
[2021-03-27 05:44] VITALS: BP 149/82
[2021-03-27] MEDS: LACTOBACILLUS RHAMNOSUS GG 1 CAPSULE. PO SCH ×3 (08:21→19:54)
[2021-03-27] MEDS: POTASSIUM CHLORIDE 10 MEQ TABLET.ER. PO SCH ×2 (08:22→09:00)
[2021-03-27] MEDS: ATORVASTATIN CALCIUM 20 MG TABLET PO SCH ×2 (08:22→09:00)
[2021-03-27] MEDS: LISINOPRIL 10 MG TABLET PO SCH (08:22)
[2021-03-27] MEDS: METOPROLOL TART IMMED RELEASE 25 MG TABLET. PO SCH ×2 (08:22→19:57)
[2021-03-27] MEDS: BENZTROPINE MESYLATE 1 MG TABLET PO SCH ×2 (08:22→19:54)
[2021-03-27] MEDS: rOPINIRole 0.5 MG TABLET. PO SCH ×4 (08:23→19:58)
[2021-03-27] MEDS: PANTOPRAZOLE 40 MG TABLET. PO SCH ×2 (08:23→09:00)
[2021-03-27] MEDS: GABAPENTIN 100 MG CAPSULE. PO SCH ×3 (08:23→19:53)
[2021-03-27] MEDS: FUROSEMIDE 20 MG TABLET PO SCH (08:23)
[2021-03-27] MEDS: FERROUS SULFATE 325 MG TABLET. PO SCH ×4 (08:23→19:55)
[2021-03-27] MEDS: ASPIRIN CHEWABLE 81 MG TABLET. PO SCH ×2 (08:23→09:00)
[2021-03-27] MEDS: DIVALPROEX ER 500 MG TAB.ER.24H PO SCH ×2 (08:23→19:54)
[2021-03-27] MEDS: NICOTINE 21MG PATCH. TD SCH (08:24)
[2021-03-27] MEDS: clonazePAM 0.5 MG TABLET PO SCH (08:24)
[2021-03-27] MEDS: ASCORBIC ACID 500 MG TABLET PO SCH ×3 (08:24→19:53)
[2021-03-27] MEDS: CELECOXIB 100 MG CAPSULE PO SCH (08:24)
[2021-03-27] MEDS: metFORMIN 500 MG TABLET PO SCH ×2 (08:24→17:23)
[2021-03-27] MEDS: TROLAMINE SALICYLATE 10% TOPICAL CREAM 85GM JAR. TP SCH ×3 (08:25→19:57)
[2021-03-27] MEDS: risperiDONE 2 MG TABLET. PO SCH ×2 (14:00→19:54)
[2021-03-27 16:09] VITALS: BP 142/90
--- NOTE | 2021-03-27 17:00 | NUR ---
nsg note; shift summary pt took some of her am meds, then started selectively taking some. she refused all her afternoon meds. she alternates from calm and talkative to sad and crying, and occ paranoia.
[2021-03-27] MEDS: CHOLECALCIFEROL (VITAMIN D3) 50,000 UNIT CAPSULE PO SCH (17:23)
--- NOTE | 2021-03-27 20:52 | NUR ---
Nursing note: Pt wants to pick and choose which meds she wants to take, refuses her prolixin toprol and requip. States "I want to make a call tomorrow to my guardian, and talk about risperdal and prolixin being given together, I know they don't go, and I need less medication. Dr. Maher needs to talk to me also tomorrow once I see him." Held meds that she is unwilling to take, pt has significant EPS tremors and mouth movements moderate. Compliant with all other meds and assessments.
--- NOTE | 2021-03-27 22:40 | PDOC ---
Exam Note: Timothy Note: Please also refer to the separate dictated note~for this date of service dictated separately.~Patient seen individually. Discussed the patient with Nursing staff reviewed the chart.~Reviewed interim history and current functioning. Reviewed vital signs,~Labs/ Radiology~and current medications noted below. Continue current treatment with the changes noted in the dictated addendum note Assessment: Vital Signs/I&O: Vital Signs Date Time Temp Pulse Resp B/P (MAP) Pulse Ox O2 Delivery O2 Flow Rate FiO2 03/27/21 19:57 80 142/90 03/27/21 16:09 97.2 16 98 Room Air 03/26/21 13:11 2.0 I & O 03/26/21 03/26/21 03/27/21 15:00 23:00 07:00 Intake Total 480 ml 600 ml Balance 480 ml 600 ml Labs: Laboratory Tests Test 03/27/21 07:28 Glucose (Fingerstick) 96 mg/dL (70-99) Current Medications: Meds: Laboratory Tests Test 03/27/21 07:28 Glucose (Fingerstick) 96 mg/dL Current Medications Medications (Trade) Dose Ordered Sig/Arnold Route PRN Reason Start Time Stop Time Status Last Admin Dose Admin Acetaminophen (Tylenol) 650 mg PRN Q6HRS PRN PO MILD PAIN / TEMP > 100.3'F 03/14/21 20:45 03/17/21 15:50 Multi-Ingredient Ointment (Analgesic [place]) 1 shwetha PRN QID PRN TP MUSCLE PAIN 03/14/21 20:45 Al Hydroxide/Mg Hydroxide (Mylanta Plus Xs) 15 ml PRN AFTMEALHC PRN PO DYSPEPSIA 03/14/21 20:45 Magnesium Hydroxide (Milk Of Magnesia) 2,400 mg PRN QHS PRN PO CONSTIPATION 03/14/21 20:45 Acetaminophen (Tylenol) 650 mg TID PRN PO Back Pain 03/14/21 21:45 UNV Ascorbic Acid (Vitamin C) 500 mg BID PO 03/15/21 09:00 03/27/21 19:53 Aspirin (Aspirin Chewable) 81 mg DAILY PO 03/15/21 09:00 03/26/21 08:33 Atorvastatin Calcium (Lipitor) 20 mg DAILY PO 03/15/21 09:00 03/26/21 08:33 Carbidopa/Levodopa (Sinemet 10/100) 1 tab TID PO 03/14/21 23:00 03/23/21 13:44 DC 03/23/21 13:34 Vitamin D (Vitamin D3) 50,000 unit QWE PO 03/20/21 16:00 03/20/21 15:16 Ferrous Sulfate (Feosol) 325 mg BID PO 03/15/21 09:00 03/27/21 19:55 Furosemide (Lasix) 20 mg DAILY PO 03/15/21 09:00 03/27/21 08:23 Gabapentin (Neurontin Oral Soln) 150 mg BID@1400,2200 PO 03/14/21 23:00 03/16/21 13:20 DC 03/14/21 23:14 Lisinopril (Prinivil) 10 mg DAILY PO 03/15/21 09:00 03/27/21 08:22 Metformin HCl (Glucophage) 500 mg BIDWMEALS PO 03/15/21 08:00 03/27/21 08:24 Metoprolol Tartrate (Lopressor) 12.5 mg BID PO 03/14/21 23:00 03/27/21 08:22 Tramadol HCl (Ultram) 50 mg PRN Q6HRS PRN PO MOD-SEV PAIN 03/14/21 21:45 03/26/21 13:11 Celecoxib (CeleBREX) 200 mg DAILY PO 03/15/21 09:00 03/27/21 08:24 Lactobacillus Rhamnosus (Culturelle) 1 cap BID PO 03/14/21 23:00 03/27/21 19:54 Pantoprazole Sodium (Protonix) 40 mg DAILY PO 03/15/21 09:00 03/26/21 08:30 Potassium Chloride (Klor-Con) 10 meq DAILY PO 03/15/21 09:00 03/26/21 08:31 Trolamine Salicylate (Myoplex) 1 shwetha TID TP 03/15/21 09:00 03/27/21 08:25 Benztropine Mesylate (Cogentin) 1 mg BID PO 03/14/21 23:00 03/27/21 19:54 Clonazepam (KlonoPIN) 2 mg BID PO 03/14/21 23:00 03/16/21 16:48 DC 03/16/21 09:00 Divalproex Sodium (Depakote Er) 1,000 mg BID PO 03/14/21 23:00 03/27/21 19:54 Fluphenazine HCl (Prolixin) 15 mg BID PO 03/14/21 23:00 03/27/21 08:23 Lorazepam (Ativan) 1 mg TID PO 03/14/21 23:00 03/16/21 18:45 DC 03/16/21 14:00 Risperidone (RisperDAL) 2 mg DAILY@1400 PO 03/15/21 14:00 03/26/21 13:10 Risperidone (RisperDAL) 4 mg QHS PO 03/14/21 23:00 03/27/21 19:54 Nicotine (Nicoderm Cq 21mg Patch) 1 patch DAILY TD 03/15/21 09:00 03/27/21 08:24 Gabapentin (Neurontin) 100 mg TID PO 03/16/21 14:00 03/27/21 19:53 Ropinirole HCl (Requip) 0.5 mg TID PO 03/16/21 21:00 03/27/21 08:23 Clonazepam (KlonoPIN) 2 mg HS PO 03/16/21 21:00 03/19/21 21:01 DC 03/18/21 21:13 Clonazepam (KlonoPIN) 1.5 mg DAILY PO 03/17/21 09:00 03/23/21 08:00 DC 03/22/21 08:04 Clonazepam (KlonoPIN) 1 mg DAILY PO 03/23/21 09:00 03/26/21 15:27 DC 03/26/21 08:33 Clonazepam (KlonoPIN) 0.5 mg DAILY PO 03/29/21 09:00 03/26/21 15:27 DC Clonazepam (KlonoPIN) 1.5 mg HS PO 03/20/21 21:00 03/25/21 21:01 DC 03/25/21 19:56 Clonazepam (KlonoPIN) 1 mg QHS PO 03/26/21 21:00 03/26/21 15:27 DC Clonazepam (KlonoPIN) 0.5 mg HS PO 04/01/21 21:00 03/26/21 15:27 DC Lorazepam (Ativan) 1 mg BID PO 03/17/21 21:00 03/19/21 21:01 DC 03/19/21 08:13 Lorazepam (Ativan) 1 mg DAILY PO 03/20/21 09:00 03/22/21 08:59 DC 03/21/21 08:36 Clonazepam (KlonoPIN) 0.5 mg DAILY PO 03/27/21 09:00 03/28/21 21:00 03/27/21 08:24 Clozapine (Clozaril) 25 mg HS PO 03/29/21 21:00 Current Medications Medications (Trade) Dose Ordered Sig/Arnold Route PRN Reason Start Time Stop Time Status Last Admin Dose Admin Clonazepam (KlonoPIN) 0.5 mg DAILY PO 03/27/21 09:00 03/28/21 21:00 03/27/21 08:24 I have reviewed the current psychotropics carefully including drug interactions. Risk benefit ratio favors no change other than as noted in my dictated progress note. Diagnosis: Problems: (1) Anxiety disorder (2) Impulse control disorder (3) Schizoaffective disorder, chronic condition with acute exacerbation BESSIE SOLORIO MD Mar 27, 2021 22:40
[2021-03-28 06:08] VITALS: BP 134/80
[2021-03-28] MEDS: ATORVASTATIN CALCIUM 20 MG TABLET PO SCH (08:28)
[2021-03-28] MEDS: FERROUS SULFATE 325 MG TABLET. PO SCH ×2 (08:28→20:35)
[2021-03-28] MEDS: PANTOPRAZOLE 40 MG TABLET. PO SCH (08:28)
[2021-03-28] MEDS: FUROSEMIDE 20 MG TABLET PO SCH (08:28)
[2021-03-28] MEDS: BENZTROPINE MESYLATE 1 MG TABLET PO SCH ×2 (08:28→20:35)
[2021-03-28] MEDS: clonazePAM 0.5 MG TABLET PO SCH (08:28)
[2021-03-28] MEDS: GABAPENTIN 100 MG CAPSULE. PO SCH ×3 (08:28→20:35)
[2021-03-28] MEDS: ASPIRIN CHEWABLE 81 MG TABLET. PO SCH (08:29)
[2021-03-28] MEDS: LACTOBACILLUS RHAMNOSUS GG 1 CAPSULE. PO SCH ×2 (08:29→20:35)
[2021-03-28] MEDS: DIVALPROEX ER 500 MG TAB.ER.24H PO SCH ×2 (08:29→20:36)
[2021-03-28] MEDS: METOPROLOL TART IMMED RELEASE 25 MG TABLET. PO SCH ×2 (08:29→20:36)
[2021-03-28] MEDS: metFORMIN 500 MG TABLET PO SCH ×3 (08:29→17:23)
[2021-03-28] MEDS: POTASSIUM CHLORIDE 10 MEQ TABLET.ER. PO SCH (08:29)
[2021-03-28] MEDS: LISINOPRIL 10 MG TABLET PO SCH (08:30)
[2021-03-28] MEDS: ASCORBIC ACID 500 MG TABLET PO SCH ×2 (08:30→20:35)
[2021-03-28] MEDS: NICOTINE 21MG PATCH. TD SCH (08:30)
[2021-03-28] MEDS: rOPINIRole 0.5 MG TABLET. PO SCH ×3 (08:30→20:35)
[2021-03-28] MEDS: CELECOXIB 100 MG CAPSULE PO SCH (08:30)
[2021-03-28] MEDS: TROLAMINE SALICYLATE 10% TOPICAL CREAM 85GM JAR. TP SCH ×3 (08:31→21:00)
--- NOTE | 2021-03-28 09:08 | PDOC ---
Exam Note: Timothy Note: This note is a late entry for 03/26/2021 covers elements not covered in my initial note. Subjective: The patient was seen on telehealth rounds in the afternoon of 03/26/2021 with the nursing staff taking the telehealth camera to each patient, which was on a secure portal, discussed and reviewed the chart with Herminia DORAN. She slept 7-3/4 hours previous night. She has been compliant with medications, continues to have mood lability, crying and laughing intermittently. She may have some pseudobulbar affect but more likely this is part of her schizoaffective disorder bipolar type. We are tapering and stopping the benzodiazepines. Klonopin is currently 1 mg a day and we will reduce it to 0.5 mg a day for 2 days and stop it, then start the Clozaril. Review of Systems: Ambulation impaired in wheelchair. No CV, , pulmonary, eye, ENT system symptoms on review. She has vague somatic symptoms, wanting tramadol. Mental Status Exam: The patient is alert and oriented to herself. Speech coherent. Abstraction fair. Computation impaired. Language function intact. Attention span short. Mood and affect remains somewhat labile. No suicidal or homicidal ideation. She is quite distractible, has difficulty following along with this. Laboratory Data: Reviewed. Impression: Schizoaffective disorder bipolar type, mixed with psychotic features. Anxiety disorder unspecified. Impulse control disorder unspecified. Plan: Continue current psychotropics. She continues to have mood lability, paranoid, threatening to jad me for giving her too many medications. I reassur ed her we are eliminating the benzodiazepines. Hopefully then be able to reduce the Prolixin as well. We are tapering and stopping the benzodiazepines. Klonopin is currently 1 mg a day and we will reduce it to 0.5 mg a day for 2 days and stop it, then start the Clozaril. Assessment: Vital Signs/I&O: Vital Signs Date Time Temp Pulse Resp B/P (MAP) Pulse Ox O2 Delivery O2 Flow Rate FiO2 03/28/21 08:30 65 134/80 03/28/21 06:08 97.3 14 95 Room Air 03/26/21 13:11 2.0 I & O 03/27/21 03/27/21 03/28/21 15:00 23:00 07:00 Intake Total 720 ml 600 ml Balance 720 ml 600 ml Labs: Laboratory Tests Test 03/28/21 08:09 Glucose (Fingerstick) 100 mg/dL (70-99) H Current Medications: Meds: Laboratory Tests Test 03/28/21 08:09 Glucose (Fingerstick) 100 mg/dL Current Medications Medications (Trade) Dose Ordered Sig/Arnold Route PRN Reason Start Time Stop Time Status Last Admin Dose Admin Acetaminophen (Tylenol) 650 mg PRN Q6HRS PRN PO MILD PAIN / TEMP > 100.3'F 03/14/21 20:45 03/17/21 15:50 Multi-Ingredient Ointment (Analgesic [place]) 1 shwetha PRN QID PRN TP MUSCLE PAIN 03/14/21 20:45 Al Hydroxide/Mg Hydroxide (Mylanta Plus Xs) 15 ml PRN AFTMEALHC PRN PO DYSPEPSIA 03/14/21 20:45 Magnesium Hydroxide (Milk Of Magnesia) 2,400 mg PRN QHS PRN PO CONSTIPATION 03/14/21 20:45 Acetaminophen (Tylenol) 650 mg TID PRN PO Back Pain 03/14/21 21:45 UNV Ascorbic Acid (Vitamin C) 500 mg BID PO 03/15/21 09:00 03/28/21 08:30 Aspirin (Aspirin Chewable) 81 mg DAILY PO 03/15/21 09:00 03/28/21 08:29 Atorvastatin Calcium (Lipitor) 20 mg DAILY PO 03/15/21 09:00 03/28/21 08:28 Carbidopa/Levodopa (Sinemet 10/100) 1 tab TID PO 03/14/21 23:00 03/23/21 13:44 DC 03/23/21 13:34 Vitamin D (Vitamin D3) 50,000 unit QWE PO 03/20/21 16:00 03/20/21 15:16 Ferrous Sulfate (Feosol) 325 mg BID PO 03/15/21 09:00 03/28/21 08:28 Furosemide (Lasix) 20 mg DAILY PO 03/15/21 09:00 03/28/21 08:28 Gabapentin (Neurontin Oral Soln) 150 mg BID@1400,2200 PO 03/14/21 23:00 03/16/21 13:20 DC 03/14/21 23:14 Lisinopril (Prinivil) 10 mg DAILY PO 03/15/21 09:00 03/28/21 08:30 Metformin HCl (Glucophage) 500 mg BIDWMEALS PO 03/15/21 08:00 03/28/21 08:29 Metoprolol Tartrate (Lopressor) 12.5 mg BID PO 03/14/21 23:00 03/28/21 08:29 Tramadol HCl (Ultram) 50 mg PRN Q6HRS PRN PO MOD-SEV PAIN 03/14/21 21:45 03/26/21 13:11 Celecoxib (CeleBREX) 200 mg DAILY PO 03/15/21 09:00 03/28/21 08:30 Lactobacillus Rhamnosus (Culturelle) 1 cap BID PO 03/14/21 23:00 03/28/21 08:29 Pantoprazole Sodium (Protonix) 40 mg DAILY PO 03/15/21 09:00 03/28/21 08:28 Potassium Chloride (Klor-Con) 10 meq DAILY PO 03/15/21 09:00 03/28/21 08:29 Trolamine Salicylate (Myoplex) 1 shwetha TID TP 03/15/21 09:00 03/27/21 08:25 Benztropine Mesylate (Cogentin) 1 mg BID PO 03/14/21 23:00 03/28/21 08:28 Clonazepam (KlonoPIN) 2 mg BID PO 03/14/21 23:00 03/16/21 16:48 DC 03/16/21 09:00 Divalproex Sodium (Depakote Er) 1,000 mg BID PO 03/14/21 23:00 03/28/21 08:29 Fluphenazine HCl (Prolixin) 15 mg BID PO 03/14/21 23:00 03/28/21 08:29 Lorazepam (Ativan) 1 mg TID PO 03/14/21 23:00 03/16/21 18:45 DC 03/16/21 14:00 Risperidone (RisperDAL) 2 mg DAILY@1400 PO 03/15/21 14:00 03/26/21 13:10 Risperidone (RisperDAL) 4 mg QHS PO 03/14/21 23:00 03/27/21 19:54 Nicotine (Nicoderm Cq 21mg Patch) 1 patch DAILY TD 03/15/21 09:00 03/28/21 08:30 Gabapentin (Neurontin) 100 mg TID PO 03/16/21 14:00 03/28/21 08:28 Ropinirole HCl (Requip) 0.5 mg TID PO 03/16/21 21:00 03/28/21 08:30 Clonazepam (KlonoPIN) 2 mg HS PO 03/16/21 21:00 03/19/21 21:01 DC 03/18/21 21:13 Clonazepam (KlonoPIN) 1.5 mg DAILY PO 03/17/21 09:00 03/23/21 08:00 DC 03/22/21 08:04 Clonazepam (KlonoPIN) 1 mg DAILY PO 03/23/21 09:00 03/26/21 15:27 DC 03/26/21 08:33 Clonazepam (KlonoPIN) 0.5 mg DAILY PO 03/29/21 09:00 03/26/21 15:27 DC Clonazepam (KlonoPIN) 1.5 mg HS PO 03/20/21 21:00 03/25/21 21:01 DC 03/25/21 19:56 Clonazepam (KlonoPIN) 1 mg QHS PO 03/26/21 21:00 03/26/21 15:27 DC Clonazepam (KlonoPIN) 0.5 mg HS PO 04/01/21 21:00 03/26/21 15:27 DC Lorazepam (Ativan) 1 mg BID PO 03/17/21 21:00 03/19/21 21:01 DC 03/19/21 08:13 Lorazepam (Ativan) 1 mg DAILY PO 03/20/21 09:00 03/22/21 08:59 DC 03/21/21 08:36 Clonazepam (KlonoPIN) 0.5 mg DAILY PO 03/27/21 09:00 03/28/21 21:00 03/28/21 08:28 Clozapine (Clozaril) 25 mg HS PO 03/29/21 21:00 I have reviewed the current psychotropics carefully including drug interactions. Risk benefit ratio favors no change other than as noted in my dictated progress note. Diagnosis: Problems: (1) Anxiety disorder (2) Impulse control disorder (3) Schizoaffective disorder, chronic condition with acute exacerbation BESSIE SOLORIO MD Mar 28, 2021 09:08
--- NOTE | 2021-03-28 10:37 | NUR ---
Pt is eating 100% of meals and sleeping on average 7 hours per night. Pt was refusing medication last night and attempted to this morning. Pt continues to express mood lability (e.g. laughing, crying) and delusional thinking. Pt does attend groups and addressed one of the activity staff stating "why were you with my " and continues to make accusations towards staff in the same delusional manner. Pt has poor boundaries and made a few attempts to kiss a peer from her facility. Clozaril 25mg q HS for pt will start tomorrow with ANC every Thursday. SW will continue to update pt guardian and facility.
--- NOTE | 2021-03-28 11:57 | NUR ---
WEEKLY ACTIVITY THERAPY NOTE Date of Admission: 03/14/2021 Date of AT Assessment: 03/15 Precipitating behaviors that initiated intake and admission: crying fits, screaming, singing, labile mood, manic, insomnia, "wild eyed stare", eloped from facility, refusing medications, delusional- thinks staff and male peer are trying to have sex with her. Goal aimed: to increase engagement and socialization Initial Goal:Pt. will participate in at least one Activity Therapy group per day. Weekly progress towards goal: did not achieve, 2/5 Group participation level: 1 min, 1 mod Weekly highlights: bopped the balloon , music bingo Thursday afternoon Behaviors observed: tearful, labile, accusatory of staff, asked AT why she was with her , said that AT held her on the ground and laughed Plan: no change to goal Beneficial adaptations: redirection needed
[2021-03-28] MEDS: risperiDONE 2 MG TABLET. PO SCH ×2 (14:27→20:36)
[2021-03-28 16:26] VITALS: BP 119/65
--- NOTE | 2021-03-28 16:33 | NUR ---
Nursing note: Pt was resistive with meds this AM, throwing them on the table in the dining room. Pt was informed that she would not receive sprite or her nicotine patch unless she would take her AM meds. She was then compliant in taking all of them whole. Pt has been making strange comments throughout the day that do not make any sense. She has been social with staff and peers and has had no complaints of pain this shift. She is currently propelling herself around the unit. Will continue to monitor.
[2021-03-28] MEDS: traMADol 50 MG TABLET PO PRN (20:39)
--- NOTE | 2021-03-28 21:59 | PDOC ---
Exam Note: Timothy Note: Please also refer to the separate dictated note~for this date of service dictated separately.~Patient seen individually. Discussed the patient with Nursing staff reviewed the chart.~Reviewed interim history and current functioning. Reviewed vital signs,~Labs/ Radiology~and current medications noted below. Continue current treatment with the changes noted in the dictated addendum note Assessment: Vital Signs/I&O: Vital Signs Date Time Temp Pulse Resp B/P (MAP) Pulse Ox O2 Delivery O2 Flow Rate FiO2 03/28/21 20:39 95 03/28/21 20:36 75 120/75 03/28/21 16:26 97.0 18 Room Air 03/26/21 13:11 2.0 I & O 03/27/21 03/27/21 03/28/21 15:00 23:00 07:00 Intake Total 720 ml 600 ml Balance 720 ml 600 ml Labs: Laboratory Tests Test 03/28/21 08:09 Glucose (Fingerstick) 100 mg/dL (70-99) H Current Medications: Meds: Laboratory Tests Test 03/28/21 08:09 Glucose (Fingerstick) 100 mg/dL Current Medications Medications (Trade) Dose Ordered Sig/Arnold Route PRN Reason Start Time Stop Time Status Last Admin Dose Admin Acetaminophen (Tylenol) 650 mg PRN Q6HRS PRN PO MILD PAIN / TEMP > 100.3'F 03/14/21 20:45 03/17/21 15:50 Multi-Ingredient Ointment (Analgesic [place]) 1 shwetha PRN QID PRN TP MUSCLE PAIN 03/14/21 20:45 Al Hydroxide/Mg Hydroxide (Mylanta Plus Xs) 15 ml PRN AFTMEALHC PRN PO DYSPEPSIA 03/14/21 20:45 Magnesium Hydroxide (Milk Of Magnesia) 2,400 mg PRN QHS PRN PO CONSTIPATION 03/14/21 20:45 Acetaminophen (Tylenol) 650 mg TID PRN PO Back Pain 03/14/21 21:45 UNV Ascorbic Acid (Vitamin C) 500 mg BID PO 03/15/21 09:00 03/28/21 20:35 Aspirin (Aspirin Chewable) 81 mg DAILY PO 03/15/21 09:00 03/28/21 08:29 Atorvastatin Calcium (Lipitor) 20 mg DAILY PO 03/15/21 09:00 03/28/21 08:28 Carbidopa/Levodopa (Sinemet 10/100) 1 tab TID PO 03/14/21 23:00 03/23/21 13:44 DC 03/23/21 13:34 Vitamin D (Vitamin D3) 50,000 unit QWE PO 03/20/21 16:00 03/20/21 15:16 Ferrous Sulfate (Feosol) 325 mg BID PO 03/15/21 09:00 03/28/21 20:35 Furosemide (Lasix) 20 mg DAILY PO 03/15/21 09:00 03/28/21 08:28 Gabapentin (Neurontin Oral Soln) 150 mg BID@1400,2200 PO 03/14/21 23:00 03/16/21 13:20 DC 03/14/21 23:14 Lisinopril (Prinivil) 10 mg DAILY PO 03/15/21 09:00 03/28/21 08:30 Metformin HCl (Glucophage) 500 mg BIDWMEALS PO 03/15/21 08:00 03/28/21 08:29 Metoprolol Tartrate (Lopressor) 12.5 mg BID PO 03/14/21 23:00 03/28/21 20:36 Tramadol HCl (Ultram) 50 mg PRN Q6HRS PRN PO MOD-SEV PAIN 03/14/21 21:45 03/28/21 20:39 Celecoxib (CeleBREX) 200 mg DAILY PO 03/15/21 09:00 03/28/21 08:30 Lactobacillus Rhamnosus (Culturelle) 1 cap BID PO 03/14/21 23:00 03/28/21 20:35 Pantoprazole Sodium (Protonix) 40 mg DAILY PO 03/15/21 09:00 03/28/21 08:28 Potassium Chloride (Klor-Con) 10 meq DAILY PO 03/15/21 09:00 03/28/21 08:29 Trolamine Salicylate (Myoplex) 1 shwetha TID TP 03/15/21 09:00 03/27/21 08:25 Benztropine Mesylate (Cogentin) 1 mg BID PO 03/14/21 23:00 03/28/21 20:35 Clonazepam (KlonoPIN) 2 mg BID PO 03/14/21 23:00 03/16/21 16:48 DC 03/16/21 09:00 Divalproex Sodium (Depakote Er) 1,000 mg BID PO 03/14/21 23:00 03/28/21 20:36 Fluphenazine HCl (Prolixin) 15 mg BID PO 03/14/21 23:00 03/28/21 08:29 Lorazepam (Ativan) 1 mg TID PO 03/14/21 23:00 03/16/21 18:45 DC 03/16/21 14:00 Risperidone (RisperDAL) 2 mg DAILY@1400 PO 03/15/21 14:00 03/28/21 14:27 Risperidone (RisperDAL) 4 mg QHS PO 03/14/21 23:00 03/28/21 20:36 Nicotine (Nicoderm Cq 21mg Patch) 1 patch DAILY TD 03/15/21 09:00 03/28/21 08:30 Gabapentin (Neurontin) 100 mg TID PO 03/16/21 14:00 03/28/21 20:35 Ropinirole HCl (Requip) 0.5 mg TID PO 03/16/21 21:00 03/28/21 20:35 Clonazepam (KlonoPIN) 2 mg HS PO 03/16/21 21:00 03/19/21 21:01 DC 03/18/21 21:13 Clonazepam (KlonoPIN) 1.5 mg DAILY PO 03/17/21 09:00 03/23/21 08:00 DC 03/22/21 08:04 Clonazepam (KlonoPIN) 1 mg DAILY PO 03/23/21 09:00 03/26/21 15:27 DC 03/26/21 08:33 Clonazepam (KlonoPIN) 0.5 mg DAILY PO 03/29/21 09:00 03/26/21 15:27 DC Clonazepam (KlonoPIN) 1.5 mg HS PO 03/20/21 21:00 03/25/21 21:01 DC 03/25/21 19:56 Clonazepam (KlonoPIN) 1 mg QHS PO 03/26/21 21:00 03/26/21 15:27 DC Clonazepam (KlonoPIN) 0.5 mg HS PO 04/01/21 21:00 03/26/21 15:27 DC Lorazepam (Ativan) 1 mg BID PO 03/17/21 21:00 03/19/21 21:01 DC 03/19/21 08:13 Lorazepam (Ativan) 1 mg DAILY PO 03/20/21 09:00 03/22/21 08:59 DC 03/21/21 08:36 Clonazepam (KlonoPIN) 0.5 mg DAILY PO 03/27/21 09:00 03/28/21 21:00 DC 03/28/21 08:28 Clozapine (Clozaril) 25 mg HS PO 03/29/21 21:00 I have reviewed the current psychotropics carefully including drug interactions. Risk benefit ratio favors no change other than as noted in my dictated progress note. Diagnosis: Problems: (1) Anxiety disorder (2) Impulse control disorder (3) Schizoaffective disorder, chronic condition with acute exacerbation BESSIE SOLORIO MD Mar 28, 2021 21:59
--- NOTE | 2021-03-29 01:15 | NUR ---
Nursing Note Pt in room rambling speech pattern. She is talking at length about her broken legs. Demands to have her brief changed but also refuses to transfer to the toilet siting that her legs are obviously broken. I assured her that her legs were certainly not broken. Pt refuses prolixin this pm, states she will take all the other meds with no complaints.
[2021-03-29 06:02] VITALS: BP 119/75
[2021-03-29] MEDS ORDERED: clonazePAM 0.5 MG TABLET PO SCH (09:00)
[2021-03-29] MEDS: LISINOPRIL 10 MG TABLET PO SCH (09:00)
[2021-03-29] MEDS: TROLAMINE SALICYLATE 10% TOPICAL CREAM 85GM JAR. TP SCH ×3 (09:00→20:50)
[2021-03-29] MEDS: ATORVASTATIN CALCIUM 20 MG TABLET PO SCH (10:03)
[2021-03-29] MEDS: LACTOBACILLUS RHAMNOSUS GG 1 CAPSULE. PO SCH ×2 (10:03→20:46)
[2021-03-29] MEDS: ASPIRIN CHEWABLE 81 MG TABLET. PO SCH (10:03)
[2021-03-29] MEDS: DIVALPROEX ER 500 MG TAB.ER.24H PO SCH ×2 (10:03→20:49)
[2021-03-29] MEDS: metFORMIN 500 MG TABLET PO SCH ×2 (10:03→17:23)
[2021-03-29] MEDS: POTASSIUM CHLORIDE 10 MEQ TABLET.ER. PO SCH (10:04)
[2021-03-29] MEDS: GABAPENTIN 100 MG CAPSULE. PO SCH ×3 (10:04→20:49)
[2021-03-29] MEDS: CELECOXIB 100 MG CAPSULE PO SCH (10:04)
[2021-03-29] MEDS: FERROUS SULFATE 325 MG TABLET. PO SCH ×2 (10:04→20:50)
[2021-03-29] MEDS: ASCORBIC ACID 500 MG TABLET PO SCH ×2 (10:04→20:48)
[2021-03-29] MEDS: METOPROLOL TART IMMED RELEASE 25 MG TABLET. PO SCH ×2 (10:05→20:47)
[2021-03-29] MEDS: FUROSEMIDE 20 MG TABLET PO SCH (10:06)
[2021-03-29] MEDS: BENZTROPINE MESYLATE 1 MG TABLET PO SCH ×2 (10:06→20:50)
[2021-03-29] MEDS: PANTOPRAZOLE 40 MG TABLET. PO SCH (10:06)
[2021-03-29] MEDS: rOPINIRole 0.5 MG TABLET. PO SCH ×3 (10:06→20:48)
[2021-03-29] MEDS: NICOTINE 21MG PATCH. TD SCH (10:07)
[2021-03-29] MEDS: risperiDONE 2 MG TABLET. PO SCH ×2 (14:38→20:49)
--- NOTE | 2021-03-29 15:14 | NUR ---
NURSING NOTE Ruthy is alert and oriented to self, location. She is mobile in a wheelchair independently. She denies pain in any location. She gravitates toward common areas. She is compliant with medication administration, but is verbally aggressive et abusive toward nurses about the medications ordered for her. Her mood has been labile, alternating between verbal abuse of nurse, to hysterical laughter, to singing nonsensical songs in dining room.
[2021-03-29 16:02] VITALS: BP 149/87
[2021-03-29] MEDS: cloZAPine 25 MG TABLET PO SCH (20:48)
--- NOTE | 2021-03-29 21:57 | PDOC ---
Exam Note: Timothy Note: This note is a late entry for 03/27/2021 covers elements not covered in my initial note. Subjective: The patient was seen on telehealth rounds in the afternoon of 03/27/2021 as an option during the COVID-19 pandemic period with Bren DORAN, discussed and reviewed the chart. She slept 7 hours previous night. Yesterday she put herself on the floor. She sometimes is refusing some of her medications, laughing inappropriately with marked mood lability, some pseudobulbar affect but this seems to be part of her bipolar mood disorder. Review of Systems: Ambulation impaired in wheelchair. No CV, , pulmonary, eye, ENT system symptoms on review. Mental Status Exam: The patient is alert and oriented to herself. Speech coherent. Abstraction fair. Computation impaired. Language function intact. Attention span short. Mood and affect remains somewhat labile. No suicidal or homicidal ideation. Laboratory Data: Reviewed. Impression: Schizoaffective disorder bipolar type, mixed with psychotic features. Anxiety disorder unspecified. Impulse control disorder unspecified. Plan: Continue current psychotropics. She is paranoid about her medications stating she does not want Prolixin, wants other meds discontinued. I have discussed with her that I am tapering and stopping the Klonopin having stopped the Ativan and will then start the Clozaril and try and reduce the Prolixin. Assessment: Vital Signs/I&O: Vital Signs Date Time Temp Pulse Resp B/P (MAP) Pulse Ox O2 Delivery O2 Flow Rate FiO2 03/29/21 20:47 74 149/87 03/29/21 16:02 97.2 22 97 03/29/21 06:02 Room Air 03/26/21 13:11 2.0 I & O 03/28/21 03/28/21 03/29/21 15:00 23:00 07:00 Intake Total 480 ml 600 ml Balance 480 ml 600 ml Labs: Laboratory Tests Test 03/29/21 08:18 Glucose (Fingerstick) 99 mg/dL (70-99) Current Medications: Meds: Laboratory Tests Test 03/29/21 08:18 Glucose (Fingerstick) 99 mg/dL Current Medications Medications (Trade) Dose Ordered Sig/Arnlod Route PRN Reason Start Time Stop Time Status Last Admin Dose Admin Acetaminophen (Tylenol) 650 mg PRN Q6HRS PRN PO MILD PAIN / TEMP > 100.3'F 03/14/21 20:45 03/17/21 15:50 Multi-Ingredient Ointment (Analgesic [place]) 1 shwetha PRN QID PRN TP MUSCLE PAIN 03/14/21 20:45 Al Hydroxide/Mg Hydroxide (Mylanta Plus Xs) 15 ml PRN AFTMEALHC PRN PO DYSPEPSIA 03/14/21 20:45 Magnesium Hydroxide (Milk Of Magnesia) 2,400 mg PRN QHS PRN PO CONSTIPATION 03/14/21 20:45 Acetaminophen (Tylenol) 650 mg TID PRN PO Back Pain 03/14/21 21:45 UNV Ascorbic Acid (Vitamin C) 500 mg BID PO 03/15/21 09:00 03/29/21 20:48 Aspirin (Aspirin Chewable) 81 mg DAILY PO 03/15/21 09:00 03/29/21 10:03 Atorvastatin Calcium (Lipitor) 20 mg DAILY PO 03/15/21 09:00 03/29/21 10:03 Carbidopa/Levodopa (Sinemet 10/100) 1 tab TID PO 03/14/21 23:00 03/23/21 13:44 DC 03/23/21 13:34 Vitamin D (Vitamin D3) 50,000 unit QWE PO 03/20/21 16:00 03/20/21 15:16 Ferrous Sulfate (Feosol) 325 mg BID PO 03/15/21 09:00 03/29/21 20:50 Furosemide (Lasix) 20 mg DAILY PO 03/15/21 09:00 03/29/21 10:06 Gabapentin (Neurontin Oral Soln) 150 mg BID@1400,2200 PO 03/14/21 23:00 03/16/21 13:20 DC 03/14/21 23:14 Lisinopril (Prinivil) 10 mg DAILY PO 03/15/21 09:00 03/29/21 09:00 Metformin HCl (Glucophage) 500 mg BIDWMEALS PO 03/15/21 08:00 03/29/21 17:23 Metoprolol Tartrate (Lopressor) 12.5 mg BID PO 03/14/21 23:00 03/29/21 20:47 Tramadol HCl (Ultram) 50 mg PRN Q6HRS PRN PO MOD-SEV PAIN 03/14/21 21:45 03/28/21 20:39 Celecoxib (CeleBREX) 200 mg DAILY PO 03/15/21 09:00 03/29/21 10:04 Lactobacillus Rhamnosus (Culturelle) 1 cap BID PO 03/14/21 23:00 03/29/21 20:46 Pantoprazole Sodium (Protonix) 40 mg DAILY PO 03/15/21 09:00 03/29/21 10:06 Potassium Chloride (Klor-Con) 10 meq DAILY PO 03/15/21 09:00 03/29/21 10:04 Trolamine Salicylate (Myoplex) 1 shwetha TID TP 03/15/21 09:00 03/29/21 20:50 Benztropine Mesylate (Cogentin) 1 mg BID PO 03/14/21 23:00 03/29/21 20:50 Clonazepam (KlonoPIN) 2 mg BID PO 03/14/21 23:00 03/16/21 16:48 DC 03/16/21 09:00 Divalproex Sodium (Depakote Er) 1,000 mg BID PO 03/14/21 23:00 03/29/21 20:49 Fluphenazine HCl (Prolixin) 15 mg BID PO 03/14/21 23:00 03/28/21 08:29 Lorazepam (Ativan) 1 mg TID PO 03/14/21 23:00 03/16/21 18:45 DC 03/16/21 14:00 Risperidone (RisperDAL) 2 mg DAILY@1400 PO 03/15/21 14:00 03/29/21 14:38 Risperidone (RisperDAL) 4 mg QHS PO 03/14/21 23:00 03/29/21 20:49 Nicotine (Nicoderm Cq 21mg Patch) 1 patch DAILY TD 03/15/21 09:00 03/29/21 10:07 Gabapentin (Neurontin) 100 mg TID PO 03/16/21 14:00 03/29/21 20:49 Ropinirole HCl (Requip) 0.5 mg TID PO 03/16/21 21:00 03/29/21 20:48 Clonazepam (KlonoPIN) 2 mg HS PO 03/16/21 21:00 03/19/21 21:01 DC 03/18/21 21:13 Clonazepam (KlonoPIN) 1.5 mg DAILY PO 03/17/21 09:00 03/23/21 08:00 DC 03/22/21 08:04 Clonazepam (KlonoPIN) 1 mg DAILY PO 03/23/21 09:00 03/26/21 15:27 DC 03/26/21 08:33 Clonazepam (KlonoPIN) 0.5 mg DAILY PO 03/29/21 09:00 03/26/21 15:27 DC Clonazepam (KlonoPIN) 1.5 mg HS PO 03/20/21 21:00 03/25/21 21:01 DC 03/25/21 19:56 Clonazepam (KlonoPIN) 1 mg QHS PO 03/26/21 21:00 03/26/21 15:27 DC Clonazepam (KlonoPIN) 0.5 mg HS PO 04/01/21 21:00 03/26/21 15:27 DC Lorazepam (Ativan) 1 mg BID PO 03/17/21 21:00 03/19/21 21:01 DC 03/19/21 08:13 Lorazepam (Ativan) 1 mg DAILY PO 03/20/21 09:00 03/22/21 08:59 DC 03/21/21 08:36 Clonazepam (KlonoPIN) 0.5 mg DAILY PO 03/27/21 09:00 03/28/21 21:00 DC 03/28/21 08:28 Clozapine (Clozaril) 25 mg HS PO 03/29/21 21:00 03/29/21 20:48 Current Medications Medications (Trade) Dose Ordered Sig/Arnold Route PRN Reason Start Time Stop Time Status Last Admin Dose Admin Clozapine (Clozaril) 25 mg HS PO 03/29/21 21:00 03/29/21 20:48 I have reviewed the current psychotropics carefully including drug interactions. Risk benefit ratio favors no change other than as noted in my dictated progress note. Diagnosis: Problems: (1) Anxiety disorder (2) Impulse control disorder (3) Schizoaffective disorder, chronic condition with acute exacerbation BESSIE SOLORIO MD Mar 29, 2021 21:57
--- NOTE | 2021-03-29 22:11 | NUR ---
Nursing note: Pt refused physical assessment this evening, aspercreme for back, and her prolixin. Pt stated that she felt unsafe because "there are black people here", stated her arms and legs were broken and "no one cares"; suggested physical assessment of arms/legs but pt again refused.
--- NOTE | 2021-03-29 22:29 | PDOC ---
Exam Note: Timothy Note: This note is a late entry for 03/28/2021 covers elements not covered in my initial note. Subjective: The patient was reviewed on telehealth rounds in the morning of 03/28/2021 as an option during the COVID-19 pandemic period for a treatment team meeting with Jennifer Hill, Sharon Rivera (social service director), Mar, activity therapy and Amara DORAN, discussed and reviewed the chart. We discussed the patients diagnoses, progress, current psychotropics, reviewed drug interactions, risk-benefit ratio of current psychotropics. She slept 7-1/2 hours previous night. Appetite is 100%. She refused her h.s. medications, refusing Prolixin, Mirapex, took it later. She was throwing her medications at one point. Mood remains labile, laughing, crying, making inappropriate statements to staff members. She told the activity therapy staff Mar that why are you sleeping with my ? She is somewhat bizarre. She slumped over another patients shoulder yesterday, quite inappropriate. Review of Systems: Ambulation impaired in wheelchair. No CV, , pulmonary, eye, ENT system symptoms on review. Mental Status Exam: The patient is alert and oriented to herself. Speech coherent. Abstraction fair. Computation impaired. Language function intact. Attention span short. Mood and affect remains somewhat labile. No suicidal or homicidal ideation. Laboratory Data: Reviewed. Impression: Schizoaffective disorder bipolar type, mixed with psychotic features. Anxiety disorder unspecified. Impulse control disorder unspecified. Plan: Continue current psychotropics. We will check with pharmacy and start the Clozaril since benzodiazepines have been discontinued. She is quite labile in her mood, laughing inappropriate, giddy during the individual telehealth rounds from before. After checking with pharmacy we will start Clozaril tomorrow. Continue rest unchanged. Assessment: Vital Signs/I&O: Vital Signs Date Time Temp Pulse Resp B/P (MAP) Pulse Ox O2 Delivery O2 Flow Rate FiO2 03/29/21 20:47 74 149/87 03/29/21 16:02 97.2 22 97 03/29/21 06:02 Room Air 03/26/21 13:11 2.0 I & O 03/28/21 03/28/21 03/29/21 15:00 23:00 07:00 Intake Total 480 ml 600 ml Balance 480 ml 600 ml Labs: Laboratory Tests Test 03/29/21 08:18 Glucose (Fingerstick) 99 mg/dL (70-99) Current Medications: Meds: Laboratory Tests Test 03/29/21 08:18 Glucose (Fingerstick) 99 mg/dL Current Medications Medications (Trade) Dose Ordered Sig/Arnold Route PRN Reason Start Time Stop Time Status Last Admin Dose Admin Acetaminophen (Tylenol) 650 mg PRN Q6HRS PRN PO MILD PAIN / TEMP > 100.3'F 03/14/21 20:45 03/17/21 15:50 Multi-Ingredient Ointment (Analgesic [place]) 1 shwetha PRN QID PRN TP MUSCLE PAIN 03/14/21 20:45 Al Hydroxide/Mg Hydroxide (Mylanta Plus Xs) 15 ml PRN AFTMEALHC PRN PO DYSPEPSIA 03/14/21 20:45 Magnesium Hydroxide (Milk Of Magnesia) 2,400 mg PRN QHS PRN PO CONSTIPATION 03/14/21 20:45 Acetaminophen (Tylenol) 650 mg TID PRN PO Back Pain 03/14/21 21:45 UNV Ascorbic Acid (Vitamin C) 500 mg BID PO 03/15/21 09:00 03/29/21 20:48 Aspirin (Aspirin Chewable) 81 mg DAILY PO 03/15/21 09:00 03/29/21 10:03 Atorvastatin Calcium (Lipitor) 20 mg DAILY PO 03/15/21 09:00 03/29/21 10:03 Carbidopa/Levodopa (Sinemet 10/100) 1 tab TID PO 03/14/21 23:00 03/23/21 13:44 DC 03/23/21 13:34 Vitamin D (Vitamin D3) 50,000 unit QWE PO 03/20/21 16:00 03/20/21 15:16 Ferrous Sulfate (Feosol) 325 mg BID PO 03/15/21 09:00 03/29/21 20:50 Furosemide (Lasix) 20 mg DAILY PO 03/15/21 09:00 03/29/21 10:06 Gabapentin (Neurontin Oral Soln) 150 mg BID@1400,2200 PO 03/14/21 23:00 03/16/21 13:20 DC 03/14/21 23:14 Lisinopril (Prinivil) 10 mg DAILY PO 03/15/21 09:00 03/29/21 09:00 Metformin HCl (Glucophage) 500 mg BIDWMEALS PO 03/15/21 08:00 03/29/21 17:23 Metoprolol Tartrate (Lopressor) 12.5 mg BID PO 03/14/21 23:00 03/29/21 20:47 Tramadol HCl (Ultram) 50 mg PRN Q6HRS PRN PO MOD-SEV PAIN 03/14/21 21:45 03/28/21 20:39 Celecoxib (CeleBREX) 200 mg DAILY PO 03/15/21 09:00 03/29/21 10:04 Lactobacillus Rhamnosus (Culturelle) 1 cap BID PO 03/14/21 23:00 03/29/21 20:46 Pantoprazole Sodium (Protonix) 40 mg DAILY PO 03/15/21 09:00 03/29/21 10:06 Potassium Chloride (Klor-Con) 10 meq DAILY PO 03/15/21 09:00 03/29/21 10:04 Trolamine Salicylate (Myoplex) 1 shwetha TID TP 03/15/21 09:00 03/29/21 20:50 Benztropine Mesylate (Cogentin) 1 mg BID PO 03/14/21 23:00 03/29/21 20:50 Clonazepam (KlonoPIN) 2 mg BID PO 03/14/21 23:00 03/16/21 16:48 DC 03/16/21 09:00 Divalproex Sodium (Depakote Er) 1,000 mg BID PO 03/14/21 23:00 03/29/21 20:49 Fluphenazine HCl (Prolixin) 15 mg BID PO 03/14/21 23:00 03/28/21 08:29 Lorazepam (Ativan) 1 mg TID PO 03/14/21 23:00 03/16/21 18:45 DC 03/16/21 14:00 Risperidone (RisperDAL) 2 mg DAILY@1400 PO 03/15/21 14:00 03/29/21 14:38 Risperidone (RisperDAL) 4 mg QHS PO 03/14/21 23:00 03/29/21 20:49 Nicotine (Nicoderm Cq 21mg Patch) 1 patch DAILY TD 03/15/21 09:00 03/29/21 10:07 Gabapentin (Neurontin) 100 mg TID PO 03/16/21 14:00 03/29/21 20:49 Ropinirole HCl (Requip) 0.5 mg TID PO 03/16/21 21:00 03/29/21 20:48 Clonazepam (KlonoPIN) 2 mg HS PO 03/16/21 21:00 03/19/21 21:01 DC 03/18/21 21:13 Clonazepam (KlonoPIN) 1.5 mg DAILY PO 03/17/21 09:00 03/23/21 08:00 DC 03/22/21 08:04 Clonazepam (KlonoPIN) 1 mg DAILY PO 03/23/21 09:00 03/26/21 15:27 DC 03/26/21 08:33 Clonazepam (KlonoPIN) 0.5 mg DAILY PO 03/29/21 09:00 03/26/21 15:27 DC Clonazepam (KlonoPIN) 1.5 mg HS PO 03/20/21 21:00 03/25/21 21:01 DC 03/25/21 19:56 Clonazepam (KlonoPIN) 1 mg QHS PO 03/26/21 21:00 03/26/21 15:27 DC Clonazepam (KlonoPIN) 0.5 mg HS PO 04/01/21 21:00 03/26/21 15:27 DC Lorazepam (Ativan) 1 mg BID PO 03/17/21 21:00 03/19/21 21:01 DC 03/19/21 08:13 Lorazepam (Ativan) 1 mg DAILY PO 03/20/21 09:00 03/22/21 08:59 DC 03/21/21 08:36 Clonazepam (KlonoPIN) 0.5 mg DAILY PO 03/27/21 09:00 03/28/21 21:00 DC 03/28/21 08:28 Clozapine (Clozaril) 25 mg HS PO 03/29/21 21:00 03/29/21 20:48 Current Medications Medications (Trade) Dose Ordered Sig/Arnold Route PRN Reason Start Time Stop Time Status Last Admin Dose Admin Clozapine (Clozaril) 25 mg HS PO 03/29/21 21:00 03/29/21 20:48 I have reviewed the current psychotropics carefully including drug interactions. Risk benefit ratio favors no change other than as noted in my dictated progress note. Diagnosis: Problems: (1) Anxiety disorder (2) Impulse control disorder (3) Schizoaffective disorder, chronic condition with acute exacerbation BESSIE SOLORIO MD Mar 29, 2021 22:29
--- NOTE | 2021-03-29 22:50 | PDOC ---
Exam Note: Timothy Note: Please also refer to the separate dictated note~for this date of service dictated separately.~Patient seen individually. Discussed the patient with Nursing staff reviewed the chart.~Reviewed interim history and current functioning. Reviewed vital signs,~Labs/ Radiology~and current medications noted below. Continue current treatment with the changes noted in the dictated addendum note Assessment: Vital Signs/I&O: Vital Signs Date Time Temp Pulse Resp B/P (MAP) Pulse Ox O2 Delivery O2 Flow Rate FiO2 03/29/21 20:47 74 149/87 03/29/21 16:02 97.2 22 97 03/29/21 06:02 Room Air 03/26/21 13:11 2.0 I & O 03/28/21 03/28/21 03/29/21 14:59 22:59 06:59 Intake Total 480 ml 600 ml Balance 480 ml 600 ml Labs: Laboratory Tests Test 03/29/21 08:18 Glucose (Fingerstick) 99 mg/dL (70-99) Current Medications: Meds: Current Medications Medications (Trade) Dose Ordered Sig/Arnold Route PRN Reason Start Time Stop Time Status Last Admin Dose Admin Clozapine (Clozaril) 25 mg HS PO 03/29/21 21:00 03/29/21 20:48 I have reviewed the current psychotropics carefully including drug interactions. Risk benefit ratio favors no change other than as noted in my dictated progress note. Diagnosis: Problems: (1) Anxiety disorder (2) Impulse control disorder (3) Schizoaffective disorder, chronic condition with acute exacerbation BESSIE SOLORIO MD Mar 29, 2021 22:50
[2021-03-30 05:56] VITALS: BP 145/84
[2021-03-30] MEDS: FUROSEMIDE 20 MG TABLET PO SCH (09:00)
[2021-03-30] MEDS: ASPIRIN CHEWABLE 81 MG TABLET. PO SCH (09:00)
[2021-03-30] MEDS: METOPROLOL TART IMMED RELEASE 25 MG TABLET. PO SCH ×2 (09:00→19:32)
[2021-03-30] MEDS: BENZTROPINE MESYLATE 1 MG TABLET PO SCH ×2 (09:00→19:33)
[2021-03-30] MEDS: LACTOBACILLUS RHAMNOSUS GG 1 CAPSULE. PO SCH ×2 (09:00→19:33)
[2021-03-30] MEDS: LISINOPRIL 10 MG TABLET PO SCH (09:00)
[2021-03-30] MEDS: PANTOPRAZOLE 40 MG TABLET. PO SCH (09:00)
[2021-03-30] MEDS: POTASSIUM CHLORIDE 10 MEQ TABLET.ER. PO SCH (09:00)
[2021-03-30] MEDS: CELECOXIB 100 MG CAPSULE PO SCH (09:00)
[2021-03-30] MEDS: TROLAMINE SALICYLATE 10% TOPICAL CREAM 85GM JAR. TP SCH ×3 (09:00→19:56)
[2021-03-30] MEDS: FERROUS SULFATE 325 MG TABLET. PO SCH ×2 (09:00→19:33)
[2021-03-30] MEDS: ATORVASTATIN CALCIUM 20 MG TABLET PO SCH (09:00)
[2021-03-30] MEDS: rOPINIRole 0.5 MG TABLET. PO SCH ×3 (09:00→19:33)
[2021-03-30] MEDS: ASCORBIC ACID 500 MG TABLET PO SCH ×2 (09:00→19:32)
[2021-03-30] MEDS: metFORMIN 500 MG TABLET PO SCH ×2 (12:10→17:00)
[2021-03-30] MEDS: DIVALPROEX ER 500 MG TAB.ER.24H PO SCH ×2 (12:12→19:32)
[2021-03-30] MEDS: GABAPENTIN 100 MG CAPSULE. PO SCH ×3 (12:12→19:32)
[2021-03-30] MEDS: NICOTINE 21MG PATCH. TD SCH (12:14)
[2021-03-30] MEDS: risperiDONE 2 MG TABLET. PO SCH ×2 (14:00→19:32)
[2021-03-30 15:38] VITALS: BP 118/76
[2021-03-30] MEDS: cloZAPine 25 MG TABLET PO SCH (19:33)
--- NOTE | 2021-03-30 22:28 | PDOC ---
Exam Note: Timothy Note: Please also refer to the separate dictated note~for this date of service dictated separately.~Patient seen individually. Discussed the patient with Nursing staff reviewed the chart.~Reviewed interim history and current functioning. Reviewed vital signs,~Labs/ Radiology~and current medications noted below. Continue current treatment with the changes noted in the dictated addendum note Assessment: Vital Signs/I&O: Vital Signs Date Time Temp Pulse Resp B/P (MAP) Pulse Ox O2 Delivery O2 Flow Rate FiO2 03/30/21 19:32 88 118/76 03/30/21 15:38 98.0 18 97 03/30/21 05:56 Room Air 03/26/21 13:11 2.0 I & O 03/29/21 03/29/21 03/30/21 15:00 23:00 07:00 Intake Total 240 ml 600 ml Balance 240 ml 600 ml Labs: Laboratory Tests Test 03/30/21 07:21 Glucose (Fingerstick) 102 mg/dL (70-99) H Current Medications: I have reviewed the current psychotropics carefully including drug interactions. Risk benefit ratio favors no change other than as noted in my dictated progress note. Diagnosis: Problems: (1) Anxiety disorder (2) Impulse control disorder (3) Schizoaffective disorder, chronic condition with acute exacerbation BESSIE SOLORIO MD Mar 30, 2021 22:28
--- NOTE | 2021-03-30 22:32 | NUR ---
Pt sitting up in wheelchair on assessment. Pt suspicious of staff, refusing to answer assessment question stating that she can not give me her personal information, that she just needs a job and a place to stay. Pt resistive with medications at first insisting that the pills were this nurses and not hers. Pt compliant with encouragement, but refused to allow a physical assessment. When asked if pt has had a bowel movement today pt states, "I shit my pants and then they come in and lick it up". As this nurse walks out of pts room pt yells, that she is done with this nurse and Sena is fired. Pt in bed at this time.
[2021-03-31 05:44] VITALS: BP 126/74
[2021-03-31] MEDS: TROLAMINE SALICYLATE 10% TOPICAL CREAM 85GM JAR. TP SCH ×3 (09:00→20:29)
[2021-03-31] MEDS: NICOTINE 21MG PATCH. TD SCH (09:11)
[2021-03-31] MEDS: rOPINIRole 0.5 MG TABLET. PO SCH ×3 (09:12→20:27)
[2021-03-31] MEDS: ATORVASTATIN CALCIUM 20 MG TABLET PO SCH (09:12)
[2021-03-31] MEDS: LISINOPRIL 10 MG TABLET PO SCH (09:12)
[2021-03-31] MEDS: CELECOXIB 100 MG CAPSULE PO SCH (09:12)
[2021-03-31] MEDS: BENZTROPINE MESYLATE 1 MG TABLET PO SCH ×2 (09:12→20:26)
[2021-03-31] MEDS: ASPIRIN CHEWABLE 81 MG TABLET. PO SCH (09:12)
[2021-03-31] MEDS: metFORMIN 500 MG TABLET PO SCH ×2 (09:12→16:36)
[2021-03-31] MEDS: LACTOBACILLUS RHAMNOSUS GG 1 CAPSULE. PO SCH ×2 (09:13→20:27)
[2021-03-31] MEDS: PANTOPRAZOLE 40 MG TABLET. PO SCH (09:13)
[2021-03-31] MEDS: DIVALPROEX ER 500 MG TAB.ER.24H PO SCH ×2 (09:13→20:27)
[2021-03-31] MEDS: FERROUS SULFATE 325 MG TABLET. PO SCH ×2 (09:13→20:26)
[2021-03-31] MEDS: POTASSIUM CHLORIDE 10 MEQ TABLET.ER. PO SCH (09:13)
[2021-03-31] MEDS: GABAPENTIN 100 MG CAPSULE. PO SCH ×3 (09:13→20:26)
[2021-03-31] MEDS: ASCORBIC ACID 500 MG TABLET PO SCH ×2 (09:14→20:28)
[2021-03-31] MEDS: FUROSEMIDE 20 MG TABLET PO SCH (09:14)
[2021-03-31] MEDS: METOPROLOL TART IMMED RELEASE 25 MG TABLET. PO SCH ×2 (09:15→20:27)
--- NOTE | 2021-03-31 09:22 | PDOC ---
Exam Note: Timothy Note: This note is a late entry for 03/29/2021 covers elements not covered in my initial note. Subjective: The patient was seen on telehealth rounds in the afternoon of 03/29/2021 as an option during the COVID-19 pandemic period with Etta DORAN, discussed and reviewed the chart. She slept 5-1/4 hours previous night. She refused Prolixin and was verbally abusive to nursing staff and then encouraged her to take her medications. She remains extremely jean, grandiose at times, depressed with some suggestion of pseudobulbar affect at other times. She continues to have mood lability and agitation. We are starting her on Clozaril as benzodiazepines are being discontinued and adjust the dosage for stabilization. Review of Systems: Ambulation impaired in wheelchair. No CV, , pulmonary, eye, ENT system symptoms on review. She has vague somatic symptoms. Mental Status Exam: The patient is alert and oriented to herself. Speech coherent. Abstraction fair. Computation impaired. Language function intact. Attention span short. Mood and affect continues to have mood lability and agitation, paranoia. No suicidal or homicidal ideation. Laboratory Data: Reviewed. Impression: Schizoaffective disorder bipolar type, mixed with psychotic features. Anxiety disorder unspecified. Impulse control disorder unspecified. Plan: Continue current psychotropics. Assessment: Vital Signs/I&O: Vital Signs Date Time Temp Pulse Resp B/P (MAP) Pulse Ox O2 Delivery O2 Flow Rate FiO2 03/31/21 09:15 69 126/74 03/31/21 05:44 96.7 18 95 03/30/21 05:56 Room Air 03/26/21 13:11 2.0 I & O 03/30/21 03/30/21 03/31/21 15:00 23:00 07:00 Intake Total 840 ml 840 ml Balance 840 ml 840 ml Labs: Laboratory Tests Test 03/31/21 07:35 Glucose (Fingerstick) 115 mg/dL (70-99) H Current Medications: Meds: Laboratory Tests Test 03/31/21 07:35 Glucose (Fingerstick) 115 mg/dL Current Medications Medications (Trade) Dose Ordered Sig/Arnold Route PRN Reason Start Time Stop Time Status Last Admin Dose Admin Acetaminophen (Tylenol) 650 mg PRN Q6HRS PRN PO MILD PAIN / TEMP > 100.3'F 03/14/21 20:45 03/17/21 15:50 Multi-Ingredient Ointment (Analgesic [place]) 1 shwetha PRN QID PRN TP MUSCLE PAIN 03/14/21 20:45 Al Hydroxide/Mg Hydroxide (Mylanta Plus Xs) 15 ml PRN AFTMEALHC PRN PO DYSPEPSIA 03/14/21 20:45 Magnesium Hydroxide (Milk Of Magnesia) 2,400 mg PRN QHS PRN PO CONSTIPATION 03/14/21 20:45 Acetaminophen (Tylenol) 650 mg TID PRN PO Back Pain 03/14/21 21:45 UNV Ascorbic Acid (Vitamin C) 500 mg BID PO 03/15/21 09:00 03/31/21 09:14 Aspirin (Aspirin Chewable) 81 mg DAILY PO 03/15/21 09:00 03/31/21 09:12 Atorvastatin Calcium (Lipitor) 20 mg DAILY PO 03/15/21 09:00 03/31/21 09:12 Carbidopa/Levodopa (Sinemet 10/100) 1 tab TID PO 03/14/21 23:00 03/23/21 13:44 DC 03/23/21 13:34 Vitamin D (Vitamin D3) 50,000 unit QWE PO 03/20/21 16:00 03/20/21 15:16 Ferrous Sulfate (Feosol) 325 mg BID PO 03/15/21 09:00 03/31/21 09:13 Furosemide (Lasix) 20 mg DAILY PO 03/15/21 09:00 03/31/21 09:14 Gabapentin (Neurontin Oral Soln) 150 mg BID@1400,2200 PO 03/14/21 23:00 03/16/21 13:20 DC 03/14/21 23:14 Lisinopril (Prinivil) 10 mg DAILY PO 03/15/21 09:00 03/31/21 09:12 Metformin HCl (Glucophage) 500 mg BIDWMEALS PO 03/15/21 08:00 03/31/21 09:12 Metoprolol Tartrate (Lopressor) 12.5 mg BID PO 03/14/21 23:00 03/31/21 09:15 Tramadol HCl (Ultram) 50 mg PRN Q6HRS PRN PO MOD-SEV PAIN 03/14/21 21:45 7/21 20:39 Celecoxib (CeleBREX) 200 mg DAILY PO 03/15/21 09:00 03/31/21 09:12 Lactobacillus Rhamnosus (Culturelle) 1 cap BID PO 03/14/21 23:00 03/31/21 09:13 Pantoprazole Sodium (Protonix) 40 mg DAILY PO 03/15/21 09:00 03/31/21 09:13 Potassium Chloride (Klor-Con) 10 meq DAILY PO 03/15/21 09:00 03/31/21 09:13 Trolamine Salicylate (Myoplex) 1 shwetha TID TP 03/15/21 09:00 03/29/21 20:50 Benztropine Mesylate (Cogentin) 1 mg BID PO 03/14/21 23:00 03/31/21 09:12 Clonazepam (KlonoPIN) 2 mg BID PO 03/14/21 23:00 03/16/21 16:48 DC 03/16/21 09:00 Divalproex Sodium (Depakote Er) 1,000 mg BID PO 03/14/21 23:00 03/31/21 09:13 Fluphenazine HCl (Prolixin) 15 mg BID PO 03/14/21 23:00 03/31/21 09:13 Lorazepam (Ativan) 1 mg TID PO 03/14/21 23:00 03/16/21 18:45 DC 03/16/21 14:00 Risperidone (RisperDAL) 2 mg DAILY@1400 PO 03/15/21 14:00 03/29/21 14:38 Risperidone (RisperDAL) 4 mg QHS PO 03/14/21 23:00 03/30/21 19:32 Nicotine (Nicoderm Cq 21mg Patch) 1 patch DAILY TD 03/15/21 09:00 03/31/21 09:11 Gabapentin (Neurontin) 100 mg TID PO 03/16/21 14:00 03/31/21 09:13 Ropinirole HCl (Requip) 0.5 mg TID PO 03/16/21 21:00 03/31/21 09:12 Clonazepam (KlonoPIN) 2 mg HS PO 03/16/21 21:00 03/19/21 21:01 DC 03/18/21 21:13 Clonazepam (KlonoPIN) 1.5 mg DAILY PO 03/17/21 09:00 03/23/21 08:00 DC 03/22/21 08:04 Clonazepam (KlonoPIN) 1 mg DAILY PO 03/23/21 09:00 03/26/21 15:27 DC 03/26/21 08:33 Clonazepam (KlonoPIN) 0.5 mg DAILY PO 03/29/21 09:00 03/26/21 15:27 DC Clonazepam (KlonoPIN) 1.5 mg HS PO 03/20/21 21:00 03/25/21 21:01 DC 03/25/21 19:56 Clonazepam (KlonoPIN) 1 mg QHS PO 03/26/21 21:00 03/26/21 15:27 DC Clonazepam (KlonoPIN) 0.5 mg HS PO 04/01/21 21:00 03/26/21 15:27 DC Lorazepam (Ativan) 1 mg BID PO 03/17/21 21:00 03/19/21 21:01 DC 03/19/21 08:13 Lorazepam (Ativan) 1 mg DAILY PO 03/20/21 09:00 03/22/21 08:59 DC 03/21/21 08:36 Clonazepam (KlonoPIN) 0.5 mg DAILY PO 03/27/21 09:00 03/28/21 21:00 DC 03/28/21 08:28 Clozapine (Clozaril) 25 mg HS PO 03/29/21 21:00 03/30/21 19:33 I have reviewed the current psychotropics carefully including drug interactions. Risk benefit ratio favors no change other than as noted in my dictated progress note. Diagnosis: Problems: (1) Anxiety disorder (2) Impulse control disorder (3) Schizoaffective disorder, chronic condition with acute exacerbation BESSIE SOLORIO MD Mar 31, 2021 09:21
--- NOTE | 2021-03-31 09:45 | PDOC ---
Exam Note: Timothy Note: This note is a late entry for 03/30/2021 covers elements not covered in my initial note. Subjective: The patient was seen on telehealth rounds in the afternoon of 03/30/2021 as an option during the COVID-19 pandemic period with Bren DORAN, discussed and reviewed the chart. She slept 7 hours previous night. She slept in, in the morning after breakfast. Refused a.m. medications. She did take her Prolixin, labile mood, laughing, crying and did take the Clozaril previous evening. She continues to have ongoing mood swings and agitation. Review of Systems: Ambulation impaired in wheelchair. No CV, , pulmonary, eye, ENT system symptoms on review. Mental Status Exam: The patient is alert and oriented to herself. During the individual visit, I met with her on two separate occasions that she wanted me to come back to talk about her medication changes which we addressed. She states she is willing to take Prolixin and states she likes it. Nevertheless in the past she has been categorically oppose to take Prolixin and all these changes on a whim and consistent with her diagnosis. Speech coherent. Abstraction fair. Computation impaired. Language function intact. Attention span short. Mood and affect remains somewhat labile. No active suicidal or homicidal ideation but ongoing psychosis and paranoia is evident. Laboratory Data: Reviewed. Impression: Schizoaffective disorder bipolar type, mixed with psychotic features. Anxiety disorder unspecified. Impulse control disorder unspecified. Plan: Continue current psychotropics. We will continue to monitor labs on the Clozaril and adjust as clinically indicated. Assessment: Vital Signs/I&O: Vital Signs Date Time Temp Pulse Resp B/P (MAP) Pulse Ox O2 Delivery O2 Flow Rate FiO2 03/31/21 09:15 69 126/74 03/31/21 05:44 96.7 18 95 03/30/21 05:56 Room Air 03/26/21 13:11 2.0 I & O 03/30/21 03/30/21 03/31/21 15:00 23:00 07:00 Intake Total 840 ml 840 ml Balance 840 ml 840 ml Labs: Laboratory Tests Test 03/31/21 07:35 Glucose (Fingerstick) 115 mg/dL (70-99) H Current Medications: Meds: Laboratory Tests Test 03/31/21 07:35 Glucose (Fingerstick) 115 mg/dL Current Medications Medications (Trade) Dose Ordered Sig/Arnold Route PRN Reason Start Time Stop Time Status Last Admin Dose Admin Acetaminophen (Tylenol) 650 mg PRN Q6HRS PRN PO MILD PAIN / TEMP > 100.3'F 03/14/21 20:45 03/17/21 15:50 Multi-Ingredient Ointment (Analgesic [place]) 1 shwetha PRN QID PRN TP MUSCLE PAIN 03/14/21 20:45 Al Hydroxide/Mg Hydroxide (Mylanta Plus Xs) 15 ml PRN AFTMEALHC PRN PO DYSPEPSIA 03/14/21 20:45 Magnesium Hydroxide (Milk Of Magnesia) 2,400 mg PRN QHS PRN PO CONSTIPATION 03/14/21 20:45 Acetaminophen (Tylenol) 650 mg TID PRN PO Back Pain 03/14/21 21:45 UNV Ascorbic Acid (Vitamin C) 500 mg BID PO 03/15/21 09:00 03/31/21 09:14 Aspirin (Aspirin Chewable) 81 mg DAILY PO 03/15/21 09:00 03/31/21 09:12 Atorvastatin Calcium (Lipitor) 20 mg DAILY PO 03/15/21 09:00 03/31/21 09:12 Carbidopa/Levodopa (Sinemet 10/100) 1 tab TID PO 03/14/21 23:00 03/23/21 13:44 DC 03/23/21 13:34 Vitamin D (Vitamin D3) 50,000 unit QWE PO 03/20/21 16:00 03/20/21 15:16 Ferrous Sulfate (Feosol) 325 mg BID PO 03/15/21 09:00 03/31/21 09:13 Furosemide (Lasix) 20 mg DAILY PO 03/15/21 09:00 03/31/21 09:14 Gabapentin (Neurontin Oral Soln) 150 mg BID@1400,2200 PO 03/14/21 23:00 03/16/21 13:20 DC 03/14/21 23:14 Lisinopril (Prinivil) 10 mg DAILY PO 03/15/21 09:00 03/31/21 09:12 Metformin HCl (Glucophage) 500 mg BIDWMEALS PO 03/15/21 08:00 03/31/21 09:12 Metoprolol Tartrate (Lopressor) 12.5 mg BID PO 03/14/21 23:00 03/31/21 09:15 Tramadol HCl (Ultram) 50 mg PRN Q6HRS PRN PO MOD-SEV PAIN 03/14/21 21:45 03/28/21 20:39 Celecoxib (CeleBREX) 200 mg DAILY PO 03/15/21 09:00 03/31/21 09:12 Lactobacillus Rhamnosus (Culturelle) 1 cap BID PO 03/14/21 23:00 03/31/21 09:13 Pantoprazole Sodium (Protonix) 40 mg DAILY PO 03/15/21 09:00 03/31/21 09:13 Potassium Chloride (Klor-Con) 10 meq DAILY PO 03/15/21 09:00 03/31/21 09:13 Trolamine Salicylate (Myoplex) 1 shwetha TID TP 03/15/21 09:00 03/29/21 20:50 Benztropine Mesylate (Cogentin) 1 mg BID PO 03/14/21 23:00 03/31/21 09:12 Clonazepam (KlonoPIN) 2 mg BID PO 03/14/21 23:00 03/16/21 16:48 DC 03/16/21 09:00 Divalproex Sodium (Depakote Er) 1,000 mg BID PO 03/14/21 23:00 03/31/21 09:13 Fluphenazine HCl (Prolixin) 15 mg BID PO 03/14/21 23:00 03/31/21 09:13 Lorazepam (Ativan) 1 mg TID PO 03/14/21 23:00 03/16/21 18:45 DC 03/16/21 14:00 Risperidone (RisperDAL) 2 mg DAILY@1400 PO 03/15/21 14:00 03/29/21 14:38 Risperidone (RisperDAL) 4 mg QHS PO 03/14/21 23:00 03/30/21 19:32 Nicotine (Nicoderm Cq 21mg Patch) 1 patch DAILY TD 03/15/21 09:00 03/31/21 09:11 Gabapentin (Neurontin) 100 mg TID PO 03/16/21 14:00 03/31/21 09:13 Ropinirole HCl (Requip) 0.5 mg TID PO 03/16/21 21:00 03/31/21 09:12 Clonazepam (KlonoPIN) 2 mg HS PO 03/16/21 21:00 03/19/21 21:01 DC 03/18/21 21:13 Clonazepam (KlonoPIN) 1.5 mg DAILY PO 03/17/21 09:00 03/23/21 08:00 DC 03/22/21 08:04 Clonazepam (KlonoPIN) 1 mg DAILY PO 03/23/21 09:00 03/26/21 15:27 DC 03/26/21 08:33 Clonazepam (KlonoPIN) 0.5 mg DAILY PO 03/29/21 09:00 03/26/21 15:27 DC Clonazepam (KlonoPIN) 1.5 mg HS PO 03/20/21 21:00 03/25/21 21:01 DC 03/25/21 19:56 Clonazepam (KlonoPIN) 1 mg QHS PO 03/26/21 21:00 03/26/21 15:27 DC Clonazepam (KlonoPIN) 0.5 mg HS PO 04/01/21 21:00 03/26/21 15:27 DC Lorazepam (Ativan) 1 mg BID PO 03/17/21 21:00 03/19/21 21:01 DC 03/19/21 08:13 Lorazepam (Ativan) 1 mg DAILY PO 03/20/21 09:00 03/22/21 08:59 DC 03/21/21 08:36 Clonazepam (KlonoPIN) 0.5 mg DAILY PO 03/27/21 09:00 03/28/21 21:00 DC 03/28/21 08:28 Clozapine (Clozaril) 25 mg HS PO 03/29/21 21:00 03/30/21 19:33 I have reviewed the current psychotropics carefully including drug interactions. Risk benefit ratio favors no change other than as noted in my dictated progress note. Diagnosis: Problems: (1) Anxiety disorder (2) Impulse control disorder (3) Schizoaffective disorder, chronic condition with acute exacerbation BESSIE SOLORIO MD Mar 31, 2021 09:45
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
[2021-03-31] MEDS: traMADol 50 MG TABLET PO PRN ×2 (12:52→20:28)
[2021-03-31] MEDS: risperiDONE 2 MG TABLET. PO SCH ×2 (13:44→20:28)
[2021-03-31 16:33] VITALS: BP 122/70
[2021-03-31] MEDS: cloZAPine 25 MG TABLET PO SCH (20:26)
--- NOTE | 2021-03-31 21:57 | PDOC ---
Exam Note: Timothy Note: Please also refer to the separate dictated note~for this date of service dictated separately.~Patient seen individually. Discussed the patient with Nursing staff reviewed the chart.~Reviewed interim history and current functioning. Reviewed vital signs,~Labs/ Radiology~and current medications noted below. Continue current treatment with the changes noted in the dictated addendum note Assessment: Vital Signs/I&O: Vital Signs Date Time Temp Pulse Resp B/P (MAP) Pulse Ox O2 Delivery O2 Flow Rate FiO2 03/31/21 20:58 93 03/31/21 20:27 86 122/70 03/31/21 16:33 97.4 20 03/30/21 05:56 Room Air 03/26/21 13:11 2.0 I & O 03/30/21 03/30/21 03/31/21 14:59 22:59 06:59 Intake Total 840 ml 840 ml Balance 840 ml 840 ml Labs: Laboratory Tests Test 03/31/21 07:35 03/31/21 16:49 Glucose (Fingerstick) 115 mg/dL (70-99) H 142 mg/dL (70-99) H Current Medications: Meds: Laboratory Tests Test 03/31/21 07:35 03/31/21 16:49 Glucose (Fingerstick) 115 mg/dL 142 mg/dL Current Medications Medications (Trade) Dose Ordered Sig/Arnold Route PRN Reason Start Time Stop Time Status Last Admin Dose Admin Acetaminophen (Tylenol) 650 mg PRN Q6HRS PRN PO MILD PAIN / TEMP > 100.3'F 03/14/21 20:45 03/17/21 15:50 Multi-Ingredient Ointment (Analgesic [place]) 1 shwetha PRN QID PRN TP MUSCLE PAIN 03/14/21 20:45 Al Hydroxide/Mg Hydroxide (Mylanta Plus Xs) 15 ml PRN AFTMEALHC PRN PO DYSPEPSIA 03/14/21 20:45 Magnesium Hydroxide (Milk Of Magnesia) 2,400 mg PRN QHS PRN PO CONSTIPATION 03/14/21 20:45 Acetaminophen (Tylenol) 650 mg TID PRN PO Back Pain 03/14/21 21:45 UNV Ascorbic Acid (Vitamin C) 500 mg BID PO 03/15/21 09:00 03/31/21 20:28 Aspirin (Aspirin Chewable) 81 mg DAILY PO 03/15/21 09:00 03/31/21 09:12 Atorvastatin Calcium (Lipitor) 20 mg DAILY PO 03/15/21 09:00 03/31/21 09:12 Carbidopa/Levodopa (Sinemet 10/100) 1 tab TID PO 03/14/21 23:00 03/23/21 13:44 DC 03/23/21 13:34 Vitamin D (Vitamin D3) 50,000 unit QWE PO 03/20/21 16:00 03/20/21 15:16 Ferrous Sulfate (Feosol) 325 mg BID PO 03/15/21 09:00 03/31/21 20:26 Furosemide (Lasix) 20 mg DAILY PO 03/15/21 09:00 03/31/21 09:14 Gabapentin (Neurontin Oral Soln) 150 mg BID@1400,2200 PO 03/14/21 23:00 03/16/21 13:20 DC 03/14/21 23:14 Lisinopril (Prinivil) 10 mg DAILY PO 03/15/21 09:00 03/31/21 09:12 Metformin HCl (Glucophage) 500 mg BIDWMEALS PO 03/15/21 08:00 03/31/21 16:36 Metoprolol Tartrate (Lopressor) 12.5 mg BID PO 03/14/21 23:00 03/31/21 20:27 Tramadol HCl (Ultram) 50 mg PRN Q6HRS PRN PO MOD-SEV PAIN 03/14/21 21:45 03/31/21 20:28 Celecoxib (CeleBREX) 200 mg DAILY PO 03/15/21 09:00 03/31/21 09:12 Lactobacillus Rhamnosus (Culturelle) 1 cap BID PO 03/14/21 23:00 03/31/21 20:27 Pantoprazole Sodium (Protonix) 40 mg DAILY PO 03/15/21 09:00 03/31/21 09:13 Potassium Chloride (Klor-Con) 10 meq DAILY PO 03/15/21 09:00 03/31/21 09:13 Trolamine Salicylate (Myoplex) 1 shwetha TID TP 03/15/21 09:00 03/29/21 20:50 Benztropine Mesylate (Cogentin) 1 mg BID PO 03/14/21 23:00 03/31/21 20:26 Clonazepam (KlonoPIN) 2 mg BID PO 03/14/21 23:00 03/16/21 16:48 DC 03/16/21 09:00 Divalproex Sodium (Depakote Er) 1,000 mg BID PO 03/14/21 23:00 03/31/21 20:27 Fluphenazine HCl (Prolixin) 15 mg BID PO 03/14/21 23:00 03/31/21 20:28 Lorazepam (Ativan) 1 mg TID PO 03/14/21 23:00 03/16/21 18:45 DC 03/16/21 14:00 Risperidone (RisperDAL) 2 mg DAILY@1400 PO 03/15/21 14:00 03/29/21 14:38 Risperidone (RisperDAL) 4 mg QHS PO 03/14/21 23:00 03/31/21 20:28 Nicotine (Nicoderm Cq 21mg Patch) 1 patch DAILY TD 03/15/21 09:00 03/31/21 09:11 Gabapentin (Neurontin) 100 mg TID PO 03/16/21 14:00 03/31/21 20:26 Ropinirole HCl (Requip) 0.5 mg TID PO 03/16/21 21:00 03/31/21 20:27 Clonazepam (KlonoPIN) 2 mg HS PO 03/16/21 21:00 03/19/21 21:01 DC 03/18/21 21:13 Clonazepam (KlonoPIN) 1.5 mg DAILY PO 03/17/21 09:00 03/23/21 08:00 DC 03/22/21 08:04 Clonazepam (KlonoPIN) 1 mg DAILY PO 03/23/21 09:00 03/26/21 15:27 DC 03/26/21 08:33 Clonazepam (KlonoPIN) 0.5 mg DAILY PO 03/29/21 09:00 03/26/21 15:27 DC Clonazepam (KlonoPIN) 1.5 mg HS PO 03/20/21 21:00 03/25/21 21:01 DC 03/25/21 19:56 Clonazepam (KlonoPIN) 1 mg QHS PO 03/26/21 21:00 03/26/21 15:27 DC Clonazepam (KlonoPIN) 0.5 mg HS PO 04/01/21 21:00 03/26/21 15:27 DC Lorazepam (Ativan) 1 mg BID PO 03/17/21 21:00 03/19/21 21:01 DC 03/19/21 08:13 Lorazepam (Ativan) 1 mg DAILY PO 03/20/21 09:00 03/22/21 08:59 DC 03/21/21 08:36 Clonazepam (KlonoPIN) 0.5 mg DAILY PO 03/27/21 09:00 03/28/21 21:00 DC 03/28/21 08:28 Clozapine (Clozaril) 25 mg HS PO 03/29/21 21:00 03/31/21 20:26 I have reviewed the current psychotropics carefully including drug interactions. Risk benefit ratio favors no change other than as noted in my dictated progress note. Diagnosis: Problems: (1) Anxiety disorder (2) Impulse control disorder (3) Schizoaffective disorder, chronic condition with acute exacerbation BESSIE SOLORIO MD Mar 31, 2021 21:57
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
[2021-04-01 05:25] VITALS: BP 133/69
[2021-04-01 07:02] LABS: BASO # 0.1 x10^3/uL (0.0-0.2); BASO % 0 % (0-3); EOS # 0.2 x10^3/uL (0.0-0.7); EOS % 1 % (0-3); HEMATOCRIT 35.3 % (36.0-47.0); LYMPH # 3.3 x10^3/uL (1.0-4.8); LYMPH % 21 % (24-48); MEAN CORPUSCULAR HEMOGLOBIN 31 pg (25-35); MEAN CORPUSCULAR HGB CONC 34 g/dL (31-37); MEAN CORPUSCULAR VOLUME 91 fL (79-100); MONO # 1.2 x10^3/uL (0.0-1.1); MONO % 8 % (0-9); NEUT # 10.9 x10^3uL (1.8-7.7); NEUT % 70 % (31-73); PLATELET COUNT 215 x10^3/uL (140-400); RED BLOOD COUNT 3.88 x10^6/uL (3.50-5.40); RED CELL DISTRIBUTION WIDTH 14.2 % (11.5-14.5); WHITE BLOOD COUNT 15.6 x10^3/uL (4.0-11.0)
[2021-04-01 07:21] LABS: ALBUMIN 2.9 g/dL (3.4-5.0); ALBUMIN/GLOBULIN RATIO 0.8 (1.0-1.7); CALCIUM 9.2 mg/dL (8.5-10.1); CREATININE 0.6 mg/dL (0.6-1.0); GFR 103.4; POTASSIUM 4.6 mmol/L (3.5-5.1); TOTAL BILIRUBIN 0.2 mg/dL (0.2-1.0); TOTAL PROTEIN 6.5 g/dL (6.4-8.2)
[2021-04-01] MEDS: CELECOXIB 100 MG CAPSULE PO SCH (08:08)
[2021-04-01] MEDS: metFORMIN 500 MG TABLET PO SCH ×2 (08:08→17:28)
[2021-04-01] MEDS: POTASSIUM CHLORIDE 10 MEQ TABLET.ER. PO SCH (08:08)
[2021-04-01] MEDS: FUROSEMIDE 20 MG TABLET PO SCH (08:08)
[2021-04-01] MEDS: rOPINIRole 0.5 MG TABLET. PO SCH ×3 (08:08→20:56)
[2021-04-01] MEDS: PANTOPRAZOLE 40 MG TABLET. PO SCH (08:09)
[2021-04-01] MEDS: ASCORBIC ACID 500 MG TABLET PO SCH ×2 (08:10→20:56)
[2021-04-01] MEDS: BENZTROPINE MESYLATE 1 MG TABLET PO SCH ×2 (08:10→20:56)
[2021-04-01] MEDS: DIVALPROEX ER 500 MG TAB.ER.24H PO SCH ×2 (08:10→20:56)
[2021-04-01] MEDS: METOPROLOL TART IMMED RELEASE 25 MG TABLET. PO SCH ×2 (08:10→20:57)
[2021-04-01] MEDS: ASPIRIN CHEWABLE 81 MG TABLET. PO SCH (08:10)
[2021-04-01] MEDS: FERROUS SULFATE 325 MG TABLET. PO SCH ×2 (08:10→20:56)
[2021-04-01] MEDS: LACTOBACILLUS RHAMNOSUS GG 1 CAPSULE. PO SCH ×2 (08:10→20:55)
[2021-04-01] MEDS: ATORVASTATIN CALCIUM 20 MG TABLET PO SCH (08:11)
[2021-04-01] MEDS: LISINOPRIL 10 MG TABLET PO SCH (08:11)
[2021-04-01] MEDS: TROLAMINE SALICYLATE 10% TOPICAL CREAM 85GM JAR. TP SCH ×3 (08:11→20:58)
[2021-04-01] MEDS: GABAPENTIN 100 MG CAPSULE. PO SCH ×3 (08:11→20:55)
[2021-04-01] MEDS: NICOTINE 21MG PATCH. TD SCH (08:13)
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
[2021-04-01 08:50] LABS: % BANDS 15 % (0-9); % EOS 4 % (0-5); % LYMPHS 19 % (24-48); % METAS 2 % (0-0); % MONOS 6 % (0-10); % MYELOS 6 % (0-0); % OTHERS 2 % (0-0); % PROS 3 % (0-0); % SEGS 43 % (35-66)
[2021-04-01 08:54] LABS: PLT ESTIMATE ADEQUATE (ADEQUATE)
[2021-04-01] MEDS: risperiDONE 2 MG TABLET. PO SCH ×2 (14:02→20:55)
--- NOTE | 2021-04-01 14:33 | NUR ---
nsg note; cindy has been manipulative with her meds today, taking most of her am meds then refusing the vitamins. she refused them again at lunch then told me at 1400 that she would take them. she proceeded to take the sched meds for 1400 then refused the vitamins, again. finally, 30 minutes later she came to me and took the vitamins. I explained that she is here to get her meds adjusted and she proceeded to tell me what meds she wants and which ones she will refuse.
[2021-04-01 16:09] VITALS: BP 130/81
[2021-04-01] MEDS: traMADol 50 MG TABLET PO PRN (20:56)
[2021-04-01] MEDS: cloZAPine 25 MG TABLET PO SCH (20:56)
[2021-04-01] MEDS ORDERED: clonazePAM 0.5 MG TABLET PO SCH (21:00)
--- NOTE | 2021-04-01 21:56 | PDOC ---
Exam Note: Timothy Note: Please also refer to the separate dictated note~for this date of service dictated separately.~Patient seen individually. Discussed the patient with Nursing staff reviewed the chart.~Reviewed interim history and current functioning. Reviewed vital signs,~Labs/ Radiology~and current medications noted below. Continue current treatment with the changes noted in the dictated addendum note Assessment: Vital Signs/I&O: Vital Signs Date Time Temp Pulse Resp B/P (MAP) Pulse Ox O2 Delivery O2 Flow Rate FiO2 04/01/21 21:26 95 04/01/21 20:57 90 130/81 04/01/21 16:09 98.0 20 03/30/21 05:56 Room Air 03/26/21 13:11 2.0 I & O 03/31/21 03/31/21 04/01/21 15:00 23:00 07:00 Intake Total 960 ml 720 ml Balance 960 ml 720 ml Labs: Laboratory Tests Test 04/01/21 06:24 04/01/21 07:53 White Blood Count 15.6 x10^3/uL (4.0-11.0) H Red Blood Count 3.88 x10^6/uL (3.50-5.40) Hemoglobin 12.0 g/dL (12.0-15.5) Hematocrit 35.3 % (36.0-47.0) L Mean Corpuscular Volume 91 fL (79-100) Mean Corpuscular Hemoglobin 31 pg (25-35) Mean Corpuscular Hemoglobin Concent 34 g/dL (31-37) Red Cell Distribution Width 14.2 % (11.5-14.5) Platelet Count 215 x10^3/uL (140-400) Neutrophils (%) (Auto) 70 % (31-73) Lymphocytes (%) (Auto) 21 % (24-48) L Monocytes (%) (Auto) 8 % (0-9) Eosinophils (%) (Auto) 1 % (0-3) Basophils (%) (Auto) 0 % (0-3) Neutrophils # (Auto) 10.9 x10^3uL (1.8-7.7) H Lymphocytes # (Auto) 3.3 x10^3/uL (1.0-4.8) Monocytes # (Auto) 1.2 x10^3/uL (0.0-1.1) H Eosinophils # (Auto) 0.2 x10^3/uL (0.0-0.7) Basophils # (Auto) 0.1 x10^3/uL (0.0-0.2) Segmented Neutrophils % 43 % (35-66) Band Neutrophils % 15 % (0-9) H Lymphocytes % 19 % (24-48) L Monocytes % 6 % (0-10) Eosinophils % 4 % (0-5) Metamyelocytes % 2 % (0-0) H Myelocytes % 6 % (0-0) H Promyelocytes % 3 % (0-0) H Other Cells % 2 % (0-0) H Platelet Estimate Adequate (ADEQUATE) Sodium Level 128 mmol/L (136-145) L Potassium Level 4.6 mmol/L (3.5-5.1) Chloride Level 92 mmol/L (98-107) L Carbon Dioxide Level 32 mmol/L (21-32) Anion Gap 4 (6-14) L Blood Urea Nitrogen 12 mg/dL (7-20) Creatinine 0.6 mg/dL (0.6-1.0) Estimated GFR (Cockcroft-Gault) 103.4 BUN/Creatinine Ratio 20 (6-20) Glucose Level 97 mg/dL (70-99) Calcium Level 9.2 mg/dL (8.5-10.1) Total Bilirubin 0.2 mg/dL (0.2-1.0) Aspartate Amino Transferase (AST) 9 U/L (15-37) L Alanine Aminotransferase (ALT) 10 U/L (14-59) L Alkaline Phosphatase 79 U/L (46-116) Total Protein 6.5 g/dL (6.4-8.2) Albumin 2.9 g/dL (3.4-5.0) L Albumin/Globulin Ratio 0.8 (1.0-1.7) L Glucose (Fingerstick) 110 mg/dL (70-99) H Current Medications: Meds: Laboratory Tests Test 04/01/21 06:24 04/01/21 07:53 White Blood Count 15.6 x10^3/uL Red Blood Count 3.88 x10^6/uL Hemoglobin 12.0 g/dL Hematocrit 35.3 % Mean Corpuscular Volume 91 fL Mean Corpuscular Hemoglobin 31 pg Mean Corpuscular Hemoglobin Concent 34 g/dL Red Cell Distribution Width 14.2 % Platelet Count 215 x10^3/uL Neutrophils (%) (Auto) 70 % Lymphocytes (%) (Auto) 21 % Monocytes (%) (Auto) 8 % Eosinophils (%) (Auto) 1 % Basophils (%) (Auto) 0 % Neutrophils # (Auto) 10.9 x10^3uL Lymphocytes # (Auto) 3.3 x10^3/uL Monocytes # (Auto) 1.2 x10^3/uL Eosinophils # (Auto) 0.2 x10^3/uL Basophils # (Auto) 0.1 x10^3/uL Segmented Neutrophils % 43 % Band Neutrophils % 15 % Lymphocytes % 19 % Monocytes % 6 % Eosinophils % 4 % Metamyelocytes % 2 % Myelocytes % 6 % Promyelocytes % 3 % Other Cells % 2 % Platelet Estimate Adequate Sodium Level 128 mmol/L Potassium Level 4.6 mmol/L Chloride Level 92 mmol/L Carbon Dioxide Level 32 mmol/L Anion Gap 4 Blood Urea Nitrogen 12 mg/dL Creatinine 0.6 mg/dL Estimated GFR (Cockcroft-Gault) 103.4 BUN/Creatinine Ratio 20 Glucose Level 97 mg/dL Calcium Level 9.2 mg/dL Total Bilirubin 0.2 mg/dL Aspartate Amino Transf (AST/SGOT) 9 U/L Alanine Aminotransferase (ALT/SGPT) 10 U/L Alkaline Phosphatase 79 U/L Total Protein 6.5 g/dL Albumin 2.9 g/dL Albumin/Globulin Ratio 0.8 Glucose (Fingerstick) 110 mg/dL Current Medications Medications (Trade) Dose Ordered Sig/Arnold Route PRN Reason Start Time Stop Time Status Last Admin Dose Admin Acetaminophen (Tylenol) 650 mg PRN Q6HRS PRN PO MILD PAIN / TEMP > 100.3'F 03/14/21 20:45 03/17/21 15:50 Multi-Ingredient Ointment (Analgesic Varney) 1 shwetha PRN QID PRN TP MUSCLE PAIN 03/14/21 20:45 Al Hydroxide/Mg Hydroxide (Mylanta Plus Xs) 15 ml PRN AFTMEALHC PRN PO DYSPEPSIA 03/14/21 20:45 Magnesium Hydroxide (Milk Of Magnesia) 2,400 mg PRN QHS PRN PO CONSTIPATION 03/14/21 20:45 Acetaminophen (Tylenol) 650 mg TID PRN PO Back Pain 03/14/21 21:45 UNV Ascorbic Acid (Vitamin C) 500 mg BID PO 03/15/21 09:00 04/01/21 20:56 Aspirin (Aspirin Chewable) 81 mg DAILY PO 03/15/21 09:00 04/01/21 08:10 Atorvastatin Calcium (Lipitor) 20 mg DAILY PO 03/15/21 09:00 04/01/21 08:11 Carbidopa/Levodopa (Sinemet 10/100) 1 tab TID PO 03/14/21 23:00 03/23/21 13:44 DC 03/23/21 13:34 Vitamin D (Vitamin D3) 50,000 unit QWE PO 03/20/21 16:00 03/20/21 15:16 Ferrous Sulfate (Feosol) 325 mg BID PO 03/15/21 09:00 04/01/21 20:56 Furosemide (Lasix) 20 mg DAILY PO 03/15/21 09:00 04/01/21 08:08 Gabapentin (Neurontin Oral Soln) 150 mg BID@1400,2200 PO 03/14/21 23:00 03/16/21 13:20 DC 03/14/21 23:14 Lisinopril (Prinivil) 10 mg DAILY PO 03/15/21 09:00 04/01/21 08:11 Metformin HCl (Glucophage) 500 mg BIDWMEALS PO 03/15/21 08:00 04/01/21 08:08 Metoprolol Tartrate (Lopressor) 12.5 mg BID PO 03/14/21 23:00 04/01/21 20:57 Tramadol HCl (Ultram) 50 mg PRN Q6HRS PRN PO MOD-SEV PAIN 03/14/21 21:45 04/01/21 20:56 Celecoxib (CeleBREX) 200 mg DAILY PO 03/15/21 09:00 04/01/21 08:08 Lactobacillus Rhamnosus (Culturelle) 1 cap BID PO 03/14/21 23:00 04/01/21 20:55 Pantoprazole Sodium (Protonix) 40 mg DAILY PO 03/15/21 09:00 04/01/21 08:09 Potassium Chloride (Klor-Con) 10 meq DAILY PO 03/15/21 09:00 04/01/21 08:08 Trolamine Salicylate (Myoplex) 1 shwetha TID TP 03/15/21 09:00 03/29/21 20:50 Benztropine Mesylate (Cogentin) 1 mg BID PO 03/14/21 23:00 04/01/21 20:56 Clonazepam (KlonoPIN) 2 mg BID PO 03/14/21 23:00 03/16/21 16:48 DC 03/16/21 09:00 Divalproex Sodium (Depakote Er) 1,000 mg BID PO 03/14/21 23:00 04/01/21 20:56 Fluphenazine HCl (Prolixin) 15 mg BID PO 03/14/21 23:00 04/01/21 20:55 Lorazepam (Ativan) 1 mg TID PO 03/14/21 23:00 03/16/21 18:45 DC 03/16/21 14:00 Risperidone (RisperDAL) 2 mg DAILY@1400 PO 03/15/21 14:00 04/01/21 14:02 Risperidone (RisperDAL) 4 mg QHS PO 03/14/21 23:00 04/01/21 20:55 Nicotine (Nicoderm Cq 21mg Patch) 1 patch DAILY TD 03/15/21 09:00 04/01/21 08:13 Gabapentin (Neurontin) 100 mg TID PO 03/16/21 14:00 04/01/21 20:55 Ropinirole HCl (Requip) 0.5 mg TID PO 03/16/21 21:00 04/01/21 20:56 Clonazepam (KlonoPIN) 2 mg HS PO 03/16/21 21:00 03/19/21 21:01 DC 03/18/21 21:13 Clonazepam (KlonoPIN) 1.5 mg DAILY PO 03/17/21 09:00 03/23/21 08:00 DC 03/22/21 08:04 Clonazepam (KlonoPIN) 1 mg DAILY PO 03/23/21 09:00 03/26/21 15:27 DC 03/26/21 08:33 Clonazepam (KlonoPIN) 0.5 mg DAILY PO 03/29/21 09:00 03/26/21 15:27 DC Clonazepam (KlonoPIN) 1.5 mg HS PO 03/20/21 21:00 03/25/21 21:01 DC 03/25/21 19:56 Clonazepam (KlonoPIN) 1 mg QHS PO 03/26/21 21:00 03/26/21 15:27 DC Clonazepam (KlonoPIN) 0.5 mg HS PO 04/01/21 21:00 03/26/21 15:27 DC Lorazepam (Ativan) 1 mg BID PO 03/17/21 21:00 03/19/21 21:01 DC 03/19/21 08:13 Lorazepam (Ativan) 1 mg DAILY PO 03/20/21 09:00 03/22/21 08:59 DC 03/21/21 08:36 Clonazepam (KlonoPIN) 0.5 mg DAILY PO 03/27/21 09:00 03/28/21 21:00 DC 03/28/21 08:28 Clozapine (Clozaril) 25 mg HS PO 03/29/21 21:00 04/01/21 16:44 DC 03/31/21 20:26 Clozapine (Clozaril) 50 mg HS PO 04/01/21 21:00 04/01/21 20:56 Current Medications Medications (Trade) Dose Ordered Sig/Arnold Route PRN Reason Start Time Stop Time Status Last Admin Dose Admin Clozapine (Clozaril) 50 mg HS PO 04/01/21 21:00 04/01/21 20:56 I have reviewed the current psychotropics carefully including drug interactions. Risk benefit ratio favors no change other than as noted in my dictated progress note. Diagnosis: Problems: (1) Anxiety disorder (2) Impulse control disorder (3) Schizoaffective disorder, chronic condition with acute exacerbation BESSIE SOLORIO MD Apr 01, 2021 21:56
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
[2021-04-02 05:50] VITALS: BP 115/73
--- NOTE | 2021-04-02 06:24 | PDOC ---
Exam Note: Timothy Note: This note is a late entry for 04/01/2021 covers elements not covered in my initial note. Subjective: The patient was seen individually in the evening of 04/01/2021 with Bren DORAN, discussed and reviewed the chart. She slept 7-1/2 hours previous night. She is very picky about her medications, sometimes takes them and refuses the others and keeps changing this. Absolute neutrophil count is 9000 and we will increase the Clozaril from 25 mg h.s. to 50 mg h.s. Review of Systems: Ambulation impaired in wheelchair. No CV, , pulmonary, eye, ENT system symptoms on review. Mental Status Exam: The patient is oriented to herself and situation. Speech coherent, at times a little pressured. Abstraction fair. Computation impaired. Language function intact. Attention span short. Mood and affect remains labile. Laboratory Data: Reviewed. Impression: Schizoaffective disorder bipolar type, mixed with psychotic features. Anxiety disorder unspecified. Impulse control disorder unspecified. Plan: Continue current psychotropics and as noted above with increase Clozaril to 50 mg h.s.. She continues to have marked mood lability, paranoia, psychosis hopefully should respond to adjustments in her psychotropics. Assessment: Vital Signs/I&O: Vital Signs Date Time Temp Pulse Resp B/P (MAP) Pulse Ox O2 Delivery O2 Flow Rate FiO2 04/02/21 05:50 98.2 64 20 115/73 (87) 93 Room Air I & O 04/01/21 04/01/21 04/02/21 15:00 23:00 07:00 Intake Total 600 ml 360 ml Balance 600 ml 360 ml Labs: Laboratory Tests Test 04/01/21 06:24 04/01/21 07:53 White Blood Count 15.6 x10^3/uL (4.0-11.0) H Red Blood Count 3.88 x10^6/uL (3.50-5.40) Hemoglobin 12.0 g/dL (12.0-15.5) Hematocrit 35.3 % (36.0-47.0) L Mean Corpuscular Volume 91 fL (79-100) Mean Corpuscular Hemoglobin 31 pg (25-35) Mean Corpuscular Hemoglobin Concent 34 g/dL (31-37) Red Cell Distribution Width 14.2 % (11.5-14.5) Platelet Count 215 x10^3/uL (140-400) Neutrophils (%) (Auto) 70 % (31-73) Lymphocytes (%) (Auto) 21 % (24-48) L Monocytes (%) (Auto) 8 % (0-9) Eosinophils (%) (Auto) 1 % (0-3) Basophils (%) (Auto) 0 % (0-3) Neutrophils # (Auto) 10.9 x10^3uL (1.8-7.7) H Lymphocytes # (Auto) 3.3 x10^3/uL (1.0-4.8) Monocytes # (Auto) 1.2 x10^3/uL (0.0-1.1) H Eosinophils # (Auto) 0.2 x10^3/uL (0.0-0.7) Basophils # (Auto) 0.1 x10^3/uL (0.0-0.2) Segmented Neutrophils % 43 % (35-66) Band Neutrophils % 15 % (0-9) H Lymphocytes % 19 % (24-48) L Monocytes % 6 % (0-10) Eosinophils % 4 % (0-5) Metamyelocytes % 2 % (0-0) H Myelocytes % 6 % (0-0) H Promyelocytes % 3 % (0-0) H Other Cells % 2 % (0-0) H Platelet Estimate Adequate (ADEQUATE) Sodium Level 128 mmol/L (136-145) L Potassium Level 4.6 mmol/L (3.5-5.1) Chloride Level 92 mmol/L (98-107) L Carbon Dioxide Level 32 mmol/L (21-32) Anion Gap 4 (6-14) L Blood Urea Nitrogen 12 mg/dL (7-20) Creatinine 0.6 mg/dL (0.6-1.0) Estimated GFR (Cockcroft-Gault) 103.4 BUN/Creatinine Ratio 20 (6-20) Glucose Level 97 mg/dL (70-99) Calcium Level 9.2 mg/dL (8.5-10.1) Total Bilirubin 0.2 mg/dL (0.2-1.0) Aspartate Amino Transferase (AST) 9 U/L (15-37) L Alanine Aminotransferase (ALT) 10 U/L (14-59) L Alkaline Phosphatase 79 U/L (46-116) Total Protein 6.5 g/dL (6.4-8.2) Albumin 2.9 g/dL (3.4-5.0) L Albumin/Globulin Ratio 0.8 (1.0-1.7) L Glucose (Fingerstick) 110 mg/dL (70-99) H Current Medications: Meds: Laboratory Tests Test 04/01/21 06:24 04/01/21 07:53 White Blood Count 15.6 x10^3/uL Red Blood Count 3.88 x10^6/uL Hemoglobin 12.0 g/dL Hematocrit 35.3 % Mean Corpuscular Volume 91 fL Mean Corpuscular Hemoglobin 31 pg Mean Corpuscular Hemoglobin Concent 34 g/dL Red Cell Distribution Width 14.2 % Platelet Count 215 x10^3/uL Neutrophils (%) (Auto) 70 % Lymphocytes (%) (Auto) 21 % Monocytes (%) (Auto) 8 % Eosinophils (%) (Auto) 1 % Basophils (%) (Auto) 0 % Neutrophils # (Auto) 10.9 x10^3uL Lymphocytes # (Auto) 3.3 x10^3/uL Monocytes # (Auto) 1.2 x10^3/uL Eosinophils # (Auto) 0.2 x10^3/uL Basophils # (Auto) 0.1 x10^3/uL Segmented Neutrophils % 43 % Band Neutrophils % 15 % Lymphocytes % 19 % Monocytes % 6 % Eosinophils % 4 % Metamyelocytes % 2 % Myelocytes % 6 % Promyelocytes % 3 % Other Cells % 2 % Platelet Estimate Adequate Sodium Level 128 mmol/L Potassium Level 4.6 mmol/L Chloride Level 92 mmol/L Carbon Dioxide Level 32 mmol/L Anion Gap 4 Blood Urea Nitrogen 12 mg/dL Creatinine 0.6 mg/dL Estimated GFR (Cockcroft-Gault) 103.4 BUN/Creatinine Ratio 20 Glucose Level 97 mg/dL Calcium Level 9.2 mg/dL Total Bilirubin 0.2 mg/dL Aspartate Amino Transf (AST/SGOT) 9 U/L Alanine Aminotransferase (ALT/SGPT) 10 U/L Alkaline Phosphatase 79 U/L Total Protein 6.5 g/dL Albumin 2.9 g/dL Albumin/Globulin Ratio 0.8 Glucose (Fingerstick) 110 mg/dL Current Medications Medications (Trade) Dose Ordered Sig/Arnold Route PRN Reason Start Time Stop Time Status Last Admin Dose Admin Acetaminophen (Tylenol) 650 mg PRN Q6HRS PRN PO MILD PAIN / TEMP > 100.3'F 03/14/21 20:45 03/17/21 15:50 Multi-Ingredient Ointment (Analgesic [place]) 1 shwetha PRN QID PRN TP MUSCLE PAIN 03/14/21 20:45 Al Hydroxide/Mg Hydroxide (Mylanta Plus Xs) 15 ml PRN AFTMEALHC PRN PO DYSPEPSIA 03/14/21 20:45 Magnesium Hydroxide (Milk Of Magnesia) 2,400 mg PRN QHS PRN PO CONSTIPATION 03/14/21 20:45 Acetaminophen (Tylenol) 650 mg TID PRN PO Back Pain 03/14/21 21:45 UNV Ascorbic Acid (Vitamin C) 500 mg BID PO 03/15/21 09:00 04/01/21 20:56 Aspirin (Aspirin Chewable) 81 mg DAILY PO 03/15/21 09:00 04/01/21 08:10 Atorvastatin Calcium (Lipitor) 20 mg DAILY PO 03/15/21 09:00 04/01/21 08:11 Carbidopa/Levodopa (Sinemet 10/100) 1 tab TID PO 03/14/21 23:00 03/23/21 13:44 DC 03/23/21 13:34 Vitamin D (Vitamin D3) 50,000 unit QWE PO 03/20/21 16:00 03/20/21 15:16 Ferrous Sulfate (Feosol) 325 mg BID PO 03/15/21 09:00 04/01/21 20:56 Furosemide (Lasix) 20 mg DAILY PO 03/15/21 09:00 04/01/21 08:08 Gabapentin (Neurontin Oral Soln) 150 mg BID@1400,2200 PO 03/14/21 23:00 03/16/21 13:20 DC 03/14/21 23:14 Lisinopril (Prinivil) 10 mg DAILY PO 03/15/21 09:00 04/01/21 08:11 Metformin HCl (Glucophage) 500 mg BIDWMEALS PO 03/15/21 08:00 04/01/21 08:08 Metoprolol Tartrate (Lopressor) 12.5 mg BID PO 03/14/21 23:00 04/01/21 20:57 Tramadol HCl (Ultram) 50 mg PRN Q6HRS PRN PO MOD-SEV PAIN 03/14/21 21:45 04/01/21 20:56 Celecoxib (CeleBREX) 200 mg DAILY PO 03/15/21 09:00 04/01/21 08:08 Lactobacillus Rhamnosus (Culturelle) 1 cap BID PO 03/14/21 23:00 04/01/21 20:55 Pantoprazole Sodium (Protonix) 40 mg DAILY PO 03/15/21 09:00 04/01/21 08:09 Potassium Chloride (Klor-Con) 10 meq DAILY PO 03/15/21 09:00 04/01/21 08:08 Trolamine Salicylate (Myoplex) 1 shwetha TID TP 03/15/21 09:00 03/29/21 20:50 Benztropine Mesylate (Cogentin) 1 mg BID PO 03/14/21 23:00 04/01/21 20:56 Clonazepam (KlonoPIN) 2 mg BID PO 03/14/21 23:00 03/16/21 16:48 DC 03/16/21 09:00 Divalproex Sodium (Depakote Er) 1,000 mg BID PO 03/14/21 23:00 04/01/21 20:56 Fluphenazine HCl (Prolixin) 15 mg BID PO 03/14/21 23:00 04/01/21 20:55 Lorazepam (Ativan) 1 mg TID PO 03/14/21 23:00 03/16/21 18:45 DC 03/16/21 14:00 Risperidone (RisperDAL) 2 mg DAILY@1400 PO 03/15/21 14:00 04/01/21 14:02 Risperidone (RisperDAL) 4 mg QHS PO 03/14/21 23:00 04/01/21 20:55 Nicotine (Nicoderm Cq 21mg Patch) 1 patch DAILY TD 03/15/21 09:00 04/01/21 08:13 Gabapentin (Neurontin) 100 mg TID PO 03/16/21 14:00 04/01/21 20:55 Ropinirole HCl (Requip) 0.5 mg TID PO 03/16/21 21:00 04/01/21 20:56 Clonazepam (KlonoPIN) 2 mg HS PO 03/16/21 21:00 03/19/21 21:01 DC 03/18/21 21:13 Clonazepam (KlonoPIN) 1.5 mg DAILY PO 03/17/21 09:00 03/23/21 08:00 DC 03/22/21 08:04 Clonazepam (KlonoPIN) 1 mg DAILY PO 03/23/21 09:00 03/26/21 15:27 DC 03/26/21 08:33 Clonazepam (KlonoPIN) 0.5 mg DAILY PO 03/29/21 09:00 03/26/21 15:27 DC Clonazepam (KlonoPIN) 1.5 mg HS PO 03/20/21 21:00 03/25/21 21:01 DC 03/25/21 19:56 Clonazepam (KlonoPIN) 1 mg QHS PO 03/26/21 21:00 03/26/21 15:27 DC Clonazepam (KlonoPIN) 0.5 mg HS PO 04/01/21 21:00 03/26/21 15:27 DC Lorazepam (Ativan) 1 mg BID PO 03/17/21 21:00 03/19/21 21:01 DC 03/19/21 08:13 Lorazepam (Ativan) 1 mg DAILY PO 03/20/21 09:00 03/22/21 08:59 DC 03/21/21 08:36 Clonazepam (KlonoPIN) 0.5 mg DAILY PO 03/27/21 09:00 03/28/21 21:00 DC 03/28/21 08:28 Clozapine (Clozaril) 25 mg HS PO 03/29/21 21:00 04/01/21 16:44 DC 03/31/21 20:26 Clozapine (Clozaril) 50 mg HS PO 04/01/21 21:00 04/01/21 20:56 Current Medications Medications (Trade) Dose Ordered Sig/Arnold Route PRN Reason Start Time Stop Time Status Last Admin Dose Admin Clozapine (Clozaril) 50 mg HS PO 04/01/21 21:00 04/01/21 20:56 I have reviewed the current psychotropics carefully including drug interactions. Risk benefit ratio favors no change other than as noted in my dictated progress note. Diagnosis: Problems: (1) Anxiety disorder (2) Impulse control disorder (3) Schizoaffective disorder, chronic condition with acute exacerbation BESSIE SOLORIO MD Apr 02, 2021 06:24
[2021-04-02] MEDS: ASPIRIN CHEWABLE 81 MG TABLET. PO SCH (08:36)
[2021-04-02] MEDS: BENZTROPINE MESYLATE 1 MG TABLET PO SCH ×2 (08:36→19:31)
[2021-04-02] MEDS: METOPROLOL TART IMMED RELEASE 25 MG TABLET. PO SCH ×2 (08:36→19:31)
[2021-04-02] MEDS: rOPINIRole 0.5 MG TABLET. PO SCH ×3 (08:36→19:31)
[2021-04-02] MEDS: metFORMIN 500 MG TABLET PO SCH ×2 (08:36→17:31)
[2021-04-02] MEDS: CELECOXIB 100 MG CAPSULE PO SCH (08:36)
[2021-04-02] MEDS: LISINOPRIL 10 MG TABLET PO SCH (08:37)
[2021-04-02] MEDS: DIVALPROEX ER 500 MG TAB.ER.24H PO SCH ×2 (08:37→19:30)
[2021-04-02] MEDS: ATORVASTATIN CALCIUM 20 MG TABLET PO SCH (08:37)
[2021-04-02] MEDS: FUROSEMIDE 20 MG TABLET PO SCH (08:37)
[2021-04-02] MEDS: GABAPENTIN 100 MG CAPSULE. PO SCH ×3 (08:37→19:31)
[2021-04-02] MEDS: NICOTINE 21MG PATCH. TD SCH (08:41)
[2021-04-02] MEDS: LACTOBACILLUS RHAMNOSUS GG 1 CAPSULE. PO SCH ×2 (08:44→19:31)
[2021-04-02] MEDS: FERROUS SULFATE 325 MG TABLET. PO SCH ×2 (08:44→19:30)
[2021-04-02] MEDS: POTASSIUM CHLORIDE 10 MEQ TABLET.ER. PO SCH (08:45)
[2021-04-02] MEDS: ASCORBIC ACID 500 MG TABLET PO SCH ×2 (08:45→19:30)
[2021-04-02] MEDS: PANTOPRAZOLE 40 MG TABLET. PO SCH (08:45)
[2021-04-02] MEDS: TROLAMINE SALICYLATE 10% TOPICAL CREAM 85GM JAR. TP SCH ×3 (08:45→19:35)
[2021-04-02] MEDS: risperiDONE 2 MG TABLET. PO SCH ×2 (13:15→19:31)
[2021-04-02 15:49] VITALS: BP 137/71
[2021-04-02] MEDS: traMADol 50 MG TABLET PO PRN (19:30)
[2021-04-02] MEDS: cloZAPine 25 MG TABLET PO SCH (19:30)
--- NOTE | 2021-04-02 21:59 | PDOC ---
Exam Note: Timothy Note: Please also refer to the separate dictated note~for this date of service dictated separately.~Patient seen individually. Discussed the patient with Nursing staff reviewed the chart.~Reviewed interim history and current functioning. Reviewed vital signs,~Labs/ Radiology~and current medications noted below. Continue current treatment with the changes noted in the dictated addendum note Assessment: Vital Signs/I&O: Vital Signs Date Time Temp Pulse Resp B/P (MAP) Pulse Ox O2 Delivery O2 Flow Rate FiO2 04/02/21 20:00 98 04/02/21 19:31 77 137/71 04/02/21 15:49 97.2 18 Room Air I & O 04/01/21 04/01/21 04/02/21 15:00 23:00 07:00 Intake Total 600 ml 360 ml Balance 600 ml 360 ml Current Medications: Meds: Current Medications Medications (Trade) Dose Ordered Sig/Arnold Route PRN Reason Start Time Stop Time Status Last Admin Dose Admin Acetaminophen (Tylenol) 650 mg PRN Q6HRS PRN PO MILD PAIN / TEMP > 100.3'F 03/14/21 20:45 03/17/21 15:50 Multi-Ingredient Ointment (Analgesic [place]) 1 shwetha PRN QID PRN TP MUSCLE PAIN 03/14/21 20:45 Al Hydroxide/Mg Hydroxide (Mylanta Plus Xs) 15 ml PRN AFTMEALHC PRN PO DYSPEPSIA 03/14/21 20:45 Magnesium Hydroxide (Milk Of Magnesia) 2,400 mg PRN QHS PRN PO CONSTIPATION 03/14/21 20:45 Acetaminophen (Tylenol) 650 mg TID PRN PO Back Pain 03/14/21 21:45 UNV Ascorbic Acid (Vitamin C) 500 mg BID PO 03/15/21 09:00 04/02/21 19:30 Aspirin (Aspirin Chewable) 81 mg DAILY PO 03/15/21 09:00 04/02/21 08:36 Atorvastatin Calcium (Lipitor) 20 mg DAILY PO 03/15/21 09:00 04/02/21 08:37 Carbidopa/Levodopa (Sinemet 10/100) 1 tab TID PO 03/14/21 23:00 03/23/21 13:44 DC 03/23/21 13:34 Vitamin D (Vitamin D3) 50,000 unit QWE PO 03/20/21 16:00 03/20/21 15:16 Ferrous Sulfate (Feosol) 325 mg BID PO 03/15/21 09:00 04/02/21 19:30 Furosemide (Lasix) 20 mg DAILY PO 03/15/21 09:00 04/02/21 15:34 DC 04/02/21 08:37 Gabapentin (Neurontin Oral Soln) 150 mg BID@1400,2200 PO 03/14/21 23:00 03/16/21 13:20 DC 03/14/21 23:14 Lisinopril (Prinivil) 10 mg DAILY PO 03/15/21 09:00 04/02/21 08:37 Metformin HCl (Glucophage) 500 mg BIDWMEALS PO 03/15/21 08:00 04/02/21 17:31 Metoprolol Tartrate (Lopressor) 12.5 mg BID PO 03/14/21 23:00 04/02/21 19:31 Tramadol HCl (Ultram) 50 mg PRN Q6HRS PRN PO MOD-SEV PAIN 03/14/21 21:45 04/02/21 19:30 Celecoxib (CeleBREX) 200 mg DAILY PO 03/15/21 09:00 04/02/21 08:36 Lactobacillus Rhamnosus (Culturelle) 1 cap BID PO 03/14/21 23:00 04/02/21 19:31 Pantoprazole Sodium (Protonix) 40 mg DAILY PO 03/15/21 09:00 04/02/21 08:45 Potassium Chloride (Klor-Con) 10 meq DAILY PO 03/15/21 09:00 04/02/21 08:45 Trolamine Salicylate (Myoplex) 1 shwetha TID TP 03/15/21 09:00 04/02/21 13:16 Benztropine Mesylate (Cogentin) 1 mg BID PO 03/14/21 23:00 04/02/21 19:31 Clonazepam (KlonoPIN) 2 mg BID PO 03/14/21 23:00 03/16/21 16:48 DC 03/16/21 09:00 Divalproex Sodium (Depakote Er) 1,000 mg BID PO 03/14/21 23:00 04/02/21 19:30 Fluphenazine HCl (Prolixin) 15 mg BID PO 03/14/21 23:00 04/02/21 19:30 Lorazepam (Ativan) 1 mg TID PO 03/14/21 23:00 03/16/21 18:45 DC 03/16/21 14:00 Risperidone (RisperDAL) 2 mg DAILY@1400 PO 03/15/21 14:00 04/02/21 13:15 Risperidone (RisperDAL) 4 mg QHS PO 03/14/21 23:00 04/02/21 19:31 Nicotine (Nicoderm Cq 21mg Patch) 1 patch DAILY TD 03/15/21 09:00 04/02/21 08:41 Gabapentin (Neurontin) 100 mg TID PO 03/16/21 14:00 04/02/21 19:31 Ropinirole HCl (Requip) 0.5 mg TID PO 03/16/21 21:00 04/02/21 19:31 Clonazepam (KlonoPIN) 2 mg HS PO 03/16/21 21:00 03/19/21 21:01 DC 03/18/21 21:13 Clonazepam (KlonoPIN) 1.5 mg DAILY PO 03/17/21 09:00 03/23/21 08:00 DC 03/22/21 08:04 Clonazepam (KlonoPIN) 1 mg DAILY PO 03/23/21 09:00 03/26/21 15:27 DC 03/26/21 08:33 Clonazepam (KlonoPIN) 0.5 mg DAILY PO 03/29/21 09:00 03/26/21 15:27 DC Clonazepam (KlonoPIN) 1.5 mg HS PO 03/20/21 21:00 03/25/21 21:01 DC 03/25/21 19:56 Clonazepam (KlonoPIN) 1 mg QHS PO 03/26/21 21:00 03/26/21 15:27 DC Clonazepam (KlonoPIN) 0.5 mg HS PO 04/01/21 21:00 03/26/21 15:27 DC Lorazepam (Ativan) 1 mg BID PO 03/17/21 21:00 03/19/21 21:01 DC 03/19/21 08:13 Lorazepam (Ativan) 1 mg DAILY PO 03/20/21 09:00 03/22/21 08:59 DC 03/21/21 08:36 Clonazepam (KlonoPIN) 0.5 mg DAILY PO 03/27/21 09:00 03/28/21 21:00 DC 03/28/21 08:28 Clozapine (Clozaril) 25 mg HS PO 03/29/21 21:00 04/01/21 16:44 DC 03/31/21 20:26 Clozapine (Clozaril) 50 mg HS PO 04/01/21 21:00 04/02/21 19:30 I have reviewed the current psychotropics carefully including drug interactions. Risk benefit ratio favors no change other than as noted in my dictated progress note. Diagnosis: Problems: (1) Anxiety disorder (2) Impulse control disorder (3) Schizoaffective disorder, chronic condition with acute exacerbation BESSIE SOLORIO MD Apr 02, 2021 21:59
--- NOTE | 2021-04-02 22:57 | NUR ---
Pt lying in bed after her shower when approached. Pt irritable, somatic, and delusional- thinks I have given her the wrong medications and then accuses me of taking her meds. Pt cooperative with assessment and compliant with medications administered whole.
[2021-04-03 05:53] VITALS: BP 109/58
--- NOTE | 2021-04-03 08:48 | PDOC ---
Exam Note: Timothy Note: This note is a late entry for 04/02/2021 covers elements not covered in my initial note. Subjective: The patient was seen individually in the evening of 04/02/2021 with [place] DORAN, discussed and reviewed the chart. She slept 10 hours previous night. The patient has been somewhat irritable and feisty per nursing report. She was swinging at one of the other demented patients, wandering up and down the hallway, tearful in the morning, rest of the day she did better. Review of Systems: Ambulation impaired in wheelchair. No CV, , pulmonary, eye, ENT system symptoms on review. Mental Status Exam: The patient is oriented to herself and situation. Speech coherent, somewhat pressured. Abstraction fair. Computation impaired. Language function intact. Attention span short. Mood and affect remains labile, paranoid, states staff are breaking her bones. I addressed this with her. Laboratory Data: Reviewed. Impression: Schizoaffective disorder bipolar type, mixed with psychotic features. Anxiety disorder unspecified. Impulse control disorder unspecified. Plan: We have increased Clozaril and we will continue this unchanged and rest unchanged from initial note. Assessment: Vital Signs/I&O: Vital Signs Date Time Temp Pulse Resp B/P (MAP) Pulse Ox O2 Delivery O2 Flow Rate FiO2 04/03/21 05:53 97.3 69 20 109/58 (75) 97 Room Air I & O 04/02/21 04/02/21 04/03/21 15:00 23:00 07:00 Intake Total 720 ml 240 ml 100 ml Balance 720 ml 240 ml 100 ml Current Medications: Meds: Current Medications Medications (Trade) Dose Ordered Sig/Arnold Route PRN Reason Start Time Stop Time Status Last Admin Dose Admin Acetaminophen (Tylenol) 650 mg PRN Q6HRS PRN PO MILD PAIN / TEMP > 100.3'F 03/14/21 20:45 03/17/21 15:50 Multi-Ingredient Ointment (Analgesic [place]) 1 shwetha PRN QID PRN TP MUSCLE PAIN 03/14/21 20:45 Al Hydroxide/Mg Hydroxide (Mylanta Plus Xs) 15 ml PRN AFTMEALHC PRN PO DYSPEPSIA 03/14/21 20:45 Magnesium Hydroxide (Milk Of Magnesia) 2,400 mg PRN QHS PRN PO CONSTIPATION 03/14/21 20:45 Acetaminophen (Tylenol) 650 mg TID PRN PO Back Pain 03/14/21 21:45 UNV Ascorbic Acid (Vitamin C) 500 mg BID PO 03/15/21 09:00 04/02/21 19:30 Aspirin (Aspirin Chewable) 81 mg DAILY PO 03/15/21 09:00 04/02/21 08:36 Atorvastatin Calcium (Lipitor) 20 mg DAILY PO 03/15/21 09:00 04/02/21 08:37 Carbidopa/Levodopa (Sinemet 10/100) 1 tab TID PO 03/14/21 23:00 03/23/21 13:44 DC 03/23/21 13:34 Vitamin D (Vitamin D3) 50,000 unit QWE PO 03/20/21 16:00 03/20/21 15:16 Ferrous Sulfate (Feosol) 325 mg BID PO 03/15/21 09:00 04/02/21 19:30 Furosemide (Lasix) 20 mg DAILY PO 03/15/21 09:00 04/02/21 15:34 DC 04/02/21 08:37 Gabapentin (Neurontin Oral Soln) 150 mg BID@1400,2200 PO 03/14/21 23:00 03/16/21 13:20 DC 03/14/21 23:14 Lisinopril (Prinivil) 10 mg DAILY PO 03/15/21 09:00 04/02/21 08:37 Metformin HCl (Glucophage) 500 mg BIDWMEALS PO 03/15/21 08:00 04/02/21 17:31 Metoprolol Tartrate (Lopressor) 12.5 mg BID PO 03/14/21 23:00 04/02/21 19:31 Tramadol HCl (Ultram) 50 mg PRN Q6HRS PRN PO MOD-SEV PAIN 03/14/21 21:45 04/02/21 19:30 Celecoxib (CeleBREX) 200 mg DAILY PO 03/15/21 09:00 04/02/21 08:36 Lactobacillus Rhamnosus (Culturelle) 1 cap BID PO 03/14/21 23:00 04/02/21 19:31 Pantoprazole Sodium (Protonix) 40 mg DAILY PO 03/15/21 09:00 04/02/21 08:45 Potassium Chloride (Klor-Con) 10 meq DAILY PO 03/15/21 09:00 04/02/21 08:45 Trolamine Salicylate (Myoplex) 1 shwetha TID TP 03/15/21 09:00 04/02/21 13:16 Benztropine Mesylate (Cogentin) 1 mg BID PO 03/14/21 23:00 04/02/21 19:31 Clonazepam (KlonoPIN) 2 mg BID PO 03/14/21 23:00 03/16/21 16:48 DC 03/16/21 09:00 Divalproex Sodium (Depakote Er) 1,000 mg BID PO 03/14/21 23:00 04/02/21 19:30 Fluphenazine HCl (Prolixin) 15 mg BID PO 03/14/21 23:00 04/02/21 19:30 Lorazepam (Ativan) 1 mg TID PO 03/14/21 23:00 03/16/21 18:45 DC 03/16/21 14:00 Risperidone (RisperDAL) 2 mg DAILY@1400 PO 03/15/21 14:00 04/02/21 13:15 Risperidone (RisperDAL) 4 mg QHS PO 03/14/21 23:00 04/02/21 19:31 Nicotine (Nicoderm Cq 21mg Patch) 1 patch DAILY TD 03/15/21 09:00 04/02/21 08:41 Gabapentin (Neurontin) 100 mg TID PO 03/16/21 14:00 04/02/21 19:31 Ropinirole HCl (Requip) 0.5 mg TID PO 03/16/21 21:00 04/02/21 19:31 Clonazepam (KlonoPIN) 2 mg HS PO 03/16/21 21:00 03/19/21 21:01 DC 03/18/21 21:13 Clonazepam (KlonoPIN) 1.5 mg DAILY PO 03/17/21 09:00 03/23/21 08:00 DC 03/22/21 08:04 Clonazepam (KlonoPIN) 1 mg DAILY PO 03/23/21 09:00 03/26/21 15:27 DC 03/26/21 08:33 Clonazepam (KlonoPIN) 0.5 mg DAILY PO 03/29/21 09:00 03/26/21 15:27 DC Clonazepam (KlonoPIN) 1.5 mg HS PO 03/20/21 21:00 03/25/21 21:01 DC 03/25/21 19:56 Clonazepam (KlonoPIN) 1 mg QHS PO 03/26/21 21:00 03/26/21 15:27 DC Clonazepam (KlonoPIN) 0.5 mg HS PO 04/01/21 21:00 03/26/21 15:27 DC Lorazepam (Ativan) 1 mg BID PO 03/17/21 21:00 03/19/21 21:01 DC 03/19/21 08:13 Lorazepam (Ativan) 1 mg DAILY PO 03/20/21 09:00 03/22/21 08:59 DC 03/21/21 08:36 Clonazepam (KlonoPIN) 0.5 mg DAILY PO 03/27/21 09:00 03/28/21 21:00 DC 03/28/21 08:28 Clozapine (Clozaril) 25 mg HS PO 03/29/21 21:00 04/01/21 16:44 DC 03/31/21 20:26 Clozapine (Clozaril) 50 mg HS PO 04/01/21 21:00 04/02/21 19:30 I have reviewed the current psychotropics carefully including drug interactions. Risk benefit ratio favors no change other than as noted in my dictated progress note. Diagnosis: Problems: (1) Anxiety disorder (2) Impulse control disorder (3) Schizoaffective disorder, chronic condition with acute exacerbation BESSIE SOLORIO MD Apr 03, 2021 08:48
[2021-04-03] MEDS: ASPIRIN CHEWABLE 81 MG TABLET. PO SCH (08:57)
[2021-04-03] MEDS: NICOTINE 21MG PATCH. TD SCH (08:57)
[2021-04-03] MEDS: POTASSIUM CHLORIDE 10 MEQ TABLET.ER. PO SCH (08:58)
[2021-04-03] MEDS: rOPINIRole 0.5 MG TABLET. PO SCH ×3 (08:58→20:13)
[2021-04-03] MEDS: LISINOPRIL 10 MG TABLET PO SCH (08:58)
[2021-04-03] MEDS: DIVALPROEX ER 500 MG TAB.ER.24H PO SCH ×2 (08:58→20:13)
[2021-04-03] MEDS: BENZTROPINE MESYLATE 1 MG TABLET PO SCH ×2 (08:58→20:13)
[2021-04-03] MEDS: ATORVASTATIN CALCIUM 20 MG TABLET PO SCH (08:58)
[2021-04-03] MEDS: ASCORBIC ACID 500 MG TABLET PO SCH ×2 (08:58→20:13)
[2021-04-03] MEDS: FERROUS SULFATE 325 MG TABLET. PO SCH ×2 (08:58→20:12)
[2021-04-03] MEDS: LACTOBACILLUS RHAMNOSUS GG 1 CAPSULE. PO SCH ×2 (08:58→20:13)
[2021-04-03] MEDS: metFORMIN 500 MG TABLET PO SCH ×2 (08:58→17:40)
[2021-04-03] MEDS: CELECOXIB 100 MG CAPSULE PO SCH (08:58)
[2021-04-03] MEDS: PANTOPRAZOLE 40 MG TABLET. PO SCH (08:58)
[2021-04-03] MEDS: GABAPENTIN 100 MG CAPSULE. PO SCH ×3 (08:58→20:13)
[2021-04-03] MEDS: METOPROLOL TART IMMED RELEASE 25 MG TABLET. PO SCH ×2 (08:59→20:14)
[2021-04-03] MEDS: TROLAMINE SALICYLATE 10% TOPICAL CREAM 85GM JAR. TP SCH ×3 (08:59→20:14)
[2021-04-03] MEDS: CHOLECALCIFEROL (VITAMIN D3) 50,000 UNIT CAPSULE PO SCH (15:22)
[2021-04-03] MEDS: risperiDONE 2 MG TABLET. PO SCH ×2 (15:22→20:12)
[2021-04-03] MEDS: traMADol 50 MG TABLET PO PRN (15:24)
[2021-04-03 16:16] VITALS: BP 156/84
[2021-04-03] MEDS: cloZAPine 25 MG TABLET PO SCH (20:13)
--- NOTE | 2021-04-03 21:41 | PDOC ---
Exam Note: Timothy Note: Please also refer to the separate dictated note~for this date of service dictated separately.~Patient seen individually. Discussed the patient with Nursing staff reviewed the chart.~Reviewed interim history and current functioning. Reviewed vital signs,~Labs/ Radiology~and current medications noted below. Continue current treatment with the changes noted in the dictated addendum note Assessment: Vital Signs/I&O: Vital Signs Date Time Temp Pulse Resp B/P (MAP) Pulse Ox O2 Delivery O2 Flow Rate FiO2 04/03/21 20:14 80 156/84 04/03/21 16:16 98.0 20 94 04/03/21 05:53 Room Air I & O 04/02/21 04/02/21 04/03/21 15:00 23:00 07:00 Intake Total 720 ml 240 ml 100 ml Balance 720 ml 240 ml 100 ml Current Medications: Meds: Current Medications Medications (Trade) Dose Ordered Sig/Arnold Route PRN Reason Start Time Stop Time Status Last Admin Dose Admin Acetaminophen (Tylenol) 650 mg PRN Q6HRS PRN PO MILD PAIN / TEMP > 100.3'F 03/14/21 20:45 03/17/21 15:50 Multi-Ingredient Ointment (Analgesic [place]) 1 shwetha PRN QID PRN TP MUSCLE PAIN 03/14/21 20:45 Al Hydroxide/Mg Hydroxide (Mylanta Plus Xs) 15 ml PRN AFTMEALHC PRN PO DYSPEPSIA 03/14/21 20:45 Magnesium Hydroxide (Milk Of Magnesia) 2,400 mg PRN QHS PRN PO CONSTIPATION 03/14/21 20:45 Acetaminophen (Tylenol) 650 mg TID PRN PO Back Pain 03/14/21 21:45 UNV Ascorbic Acid (Vitamin C) 500 mg BID PO 03/15/21 09:00 04/03/21 20:13 Aspirin (Aspirin Chewable) 81 mg DAILY PO 03/15/21 09:00 04/03/21 08:57 Atorvastatin Calcium (Lipitor) 20 mg DAILY PO 03/15/21 09:00 04/03/21 08:58 Carbidopa/Levodopa (Sinemet 10/100) 1 tab TID PO 03/14/21 23:00 03/23/21 13:44 DC 03/23/21 13:34 Vitamin D (Vitamin D3) 50,000 unit QWE PO 03/20/21 16:00 04/03/21 15:22 Ferrous Sulfate (Feosol) 325 mg BID PO 03/15/21 09:00 04/03/21 20:12 Furosemide (Lasix) 20 mg DAILY PO 03/15/21 09:00 04/02/21 15:34 DC 04/02/21 08:37 Gabapentin (Neurontin Oral Soln) 150 mg BID@1400,2200 PO 03/14/21 23:00 03/16/21 13:20 DC 03/14/21 23:14 Lisinopril (Prinivil) 10 mg DAILY PO 03/15/21 09:00 04/03/21 08:58 Metformin HCl (Glucophage) 500 mg BIDWMEALS PO 03/15/21 08:00 04/03/21 17:40 Metoprolol Tartrate (Lopressor) 12.5 mg BID PO 03/14/21 23:00 04/03/21 20:14 Tramadol HCl (Ultram) 50 mg PRN Q6HRS PRN PO MOD-SEV PAIN 03/14/21 21:45 04/03/21 15:24 Celecoxib (CeleBREX) 200 mg DAILY PO 03/15/21 09:00 04/03/21 08:58 Lactobacillus Rhamnosus (Culturelle) 1 cap BID PO 03/14/21 23:00 04/03/21 20:13 Pantoprazole Sodium (Protonix) 40 mg DAILY PO 03/15/21 09:00 04/03/21 08:58 Potassium Chloride (Klor-Con) 10 meq DAILY PO 03/15/21 09:00 04/03/21 08:58 Trolamine Salicylate (Myoplex) 1 shwetha TID TP 03/15/21 09:00 04/03/21 08:59 Benztropine Mesylate (Cogentin) 1 mg BID PO 03/14/21 23:00 04/03/21 20:13 Clonazepam (KlonoPIN) 2 mg BID PO 03/14/21 23:00 03/16/21 16:48 DC 03/16/21 09:00 Divalproex Sodium (Depakote Er) 1,000 mg BID PO 03/14/21 23:00 04/03/21 20:13 Fluphenazine HCl (Prolixin) 15 mg BID PO 03/14/21 23:00 04/03/21 20:12 Lorazepam (Ativan) 1 mg TID PO 03/14/21 23:00 03/16/21 18:45 DC 03/16/21 14:00 Risperidone (RisperDAL) 2 mg DAILY@1400 PO 03/15/21 14:00 04/03/21 15:22 Risperidone (RisperDAL) 4 mg QHS PO 03/14/21 23:00 04/03/21 20:12 Nicotine (Nicoderm Cq 21mg Patch) 1 patch DAILY TD 03/15/21 09:00 04/03/21 08:57 Gabapentin (Neurontin) 100 mg TID PO 03/16/21 14:00 04/03/21 20:13 Ropinirole HCl (Requip) 0.5 mg TID PO 03/16/21 21:00 04/03/21 20:13 Clonazepam (KlonoPIN) 2 mg HS PO 03/16/21 21:00 03/19/21 21:01 DC 03/18/21 21:13 Clonazepam (KlonoPIN) 1.5 mg DAILY PO 03/17/21 09:00 03/23/21 08:00 DC 03/22/21 08:04 Clonazepam (KlonoPIN) 1 mg DAILY PO 03/23/21 09:00 03/26/21 15:27 DC 03/26/21 08:33 Clonazepam (KlonoPIN) 0.5 mg DAILY PO 03/29/21 09:00 03/26/21 15:27 DC Clonazepam (KlonoPIN) 1.5 mg HS PO 03/20/21 21:00 03/25/21 21:01 DC 03/25/21 19:56 Clonazepam (KlonoPIN) 1 mg QHS PO 03/26/21 21:00 03/26/21 15:27 DC Clonazepam (KlonoPIN) 0.5 mg HS PO 04/01/21 21:00 03/26/21 15:27 DC Lorazepam (Ativan) 1 mg BID PO 03/17/21 21:00 03/19/21 21:01 DC 03/19/21 08:13 Lorazepam (Ativan) 1 mg DAILY PO 03/20/21 09:00 03/22/21 08:59 DC 03/21/21 08:36 Clonazepam (KlonoPIN) 0.5 mg DAILY PO 03/27/21 09:00 03/28/21 21:00 DC 03/28/21 08:28 Clozapine (Clozaril) 25 mg HS PO 03/29/21 21:00 04/01/21 16:44 DC 03/31/21 20:26 Clozapine (Clozaril) 50 mg HS PO 04/01/21 21:00 04/03/21 20:13 I have reviewed the current psychotropics carefully including drug interactions. Risk benefit ratio favors no change other than as noted in my dictated progress note. Diagnosis: Problems: (1) Anxiety disorder (2) Impulse control disorder (3) Schizoaffective disorder, chronic condition with acute exacerbation BESSIE SOLORIO MD Apr 03, 2021 21:41
--- NOTE | 2021-04-03 23:58 | NUR ---
Pt sitting in doorway to room when approached. Pt labile, suspicious, and delusional. Pt crying at times, reporting that people from her facility are against her, and other times she is laughing and smiling. Pt reports that all the bones in her body are broken and she can no longer walk. Pt cooperative with assessment and compliant with medications administered whole. As I entered pt room to see her roommate, pt stated, "my twat is sealed shut". I asked her to explain what she meant by this statement and she said, "my twat doesn't have a whole in it". When asked why she thought that, she said "they stitched it shut because they were jealous. 'Yuri all the men wanted it". Pt then became tearful, blubbering incoherently and then quickly closed her eyes and fell asleep.
[2021-04-04 05:54] VITALS: BP 152/85
--- NOTE | 2021-04-04 06:29 | PDOC ---
Exam Note: Timothy Note: This note is a late entry for 04/03/2021 covers elements not covered in my initial note. Subjective: The patient was seen individually in the evening of 04/03/2021 with [place], discussed and reviewed the chart. She slept 7-1/4 hours previous night. The patient has continued to have significant mood lability and is handful per nursing report. She has been coming out of her room, little more urinating on the floor of her room, resistive to medications but took them later. She complains of loose tooth. We will defer to Dr. Claros. Review of Systems: Ambulation impaired in wheelchair. No CV, , pulmonary, eye, ENT system symptoms on review. Reliability varies. Mental Status Exam: The patient is alert and oriented to herself and situation. Speech coherent, less pressured. Abstraction fair. Computation impaired. Language function intact. Attention span short. She is quite distractible, tearful at times, somewhat more animated at other times. Laboratory Data: Reviewed. Impression: Schizoaffective disorder bipolar type, mixed with psychotic features. Anxiety disorder unspecified. Impulse control disorder unspecified. Plan: No change from initial note. We will continue to increase the Clozaril with weekly absolute neutrophil counts. Maintain rest of the psychotropics unchanged. Benzodiazepines have been discontinued. Assessment: Vital Signs/I&O: Vital Signs Date Time Temp Pulse Resp B/P (MAP) Pulse Ox O2 Delivery O2 Flow Rate FiO2 04/04/21 05:54 96.8 70 18 152/85 (107) 92 Room Air I & O 04/03/21 04/03/21 04/04/21 15:00 23:00 07:00 Intake Total 560 ml 320 ml Balance 560 ml 320 ml Current Medications: Meds: Current Medications Medications (Trade) Dose Ordered Sig/Arnold Route PRN Reason Start Time Stop Time Status Last Admin Dose Admin Acetaminophen (Tylenol) 650 mg PRN Q6HRS PRN PO MILD PAIN / TEMP > 100.3'F 03/14/21 20:45 03/17/21 15:50 Multi-Ingredient Ointment (Analgesic [place]) 1 shwetha PRN QID PRN TP MUSCLE PAIN 03/14/21 20:45 Al Hydroxide/Mg Hydroxide (Mylanta Plus Xs) 15 ml PRN AFTMEALHC PRN PO DYSPEPSIA 03/14/21 20:45 Magnesium Hydroxide (Milk Of Magnesia) 2,400 mg PRN QHS PRN PO CONSTIPATION 03/14/21 20:45 Acetaminophen (Tylenol) 650 mg TID PRN PO Back Pain 03/14/21 21:45 UNV Ascorbic Acid (Vitamin C) 500 mg BID PO 03/15/21 09:00 04/03/21 20:13 Aspirin (Aspirin Chewable) 81 mg DAILY PO 03/15/21 09:00 04/03/21 08:57 Atorvastatin Calcium (Lipitor) 20 mg DAILY PO 03/15/21 09:00 04/03/21 08:58 Carbidopa/Levodopa (Sinemet 10/100) 1 tab TID PO 03/14/21 23:00 03/23/21 13:44 DC 03/23/21 13:34 Vitamin D (Vitamin D3) 50,000 unit QWE PO 03/20/21 16:00 04/03/21 15:22 Ferrous Sulfate (Feosol) 325 mg BID PO 03/15/21 09:00 04/03/21 20:12 Furosemide (Lasix) 20 mg DAILY PO 03/15/21 09:00 04/02/21 15:34 DC 04/02/21 08:37 Gabapentin (Neurontin Oral Soln) 150 mg BID@1400,2200 PO 03/14/21 23:00 03/16/21 13:20 DC 03/14/21 23:14 Lisinopril (Prinivil) 10 mg DAILY PO 03/15/21 09:00 04/03/21 08:58 Metformin HCl (Glucophage) 500 mg BIDWMEALS PO 03/15/21 08:00 04/03/21 17:40 Metoprolol Tartrate (Lopressor) 12.5 mg BID PO 03/14/21 23:00 04/03/21 20:14 Tramadol HCl (Ultram) 50 mg PRN Q6HRS PRN PO MOD-SEV PAIN 03/14/21 21:45 04/03/21 15:24 Celecoxib (CeleBREX) 200 mg DAILY PO 03/15/21 09:00 04/03/21 08:58 Lactobacillus Rhamnosus (Culturelle) 1 cap BID PO 03/14/21 23:00 04/03/21 20:13 Pantoprazole Sodium (Protonix) 40 mg DAILY PO 03/15/21 09:00 04/03/21 08:58 Potassium Chloride (Klor-Con) 10 meq DAILY PO 03/15/21 09:00 04/03/21 08:58 Trolamine Salicylate (Myoplex) 1 shwetha TID TP 03/15/21 09:00 04/03/21 08:59 Benztropine Mesylate (Cogentin) 1 mg BID PO 03/14/21 23:00 04/03/21 20:13 Clonazepam (KlonoPIN) 2 mg BID PO 03/14/21 23:00 03/16/21 16:48 DC 03/16/21 09:00 Divalproex Sodium (Depakote Er) 1,000 mg BID PO 03/14/21 23:00 04/03/21 20:13 Fluphenazine HCl (Prolixin) 15 mg BID PO 03/14/21 23:00 04/03/21 20:12 Lorazepam (Ativan) 1 mg TID PO 03/14/21 23:00 03/16/21 18:45 DC 03/16/21 14:00 Risperidone (RisperDAL) 2 mg DAILY@1400 PO 03/15/21 14:00 04/03/21 15:22 Risperidone (RisperDAL) 4 mg QHS PO 03/14/21 23:00 04/03/21 20:12 Nicotine (Nicoderm Cq 21mg Patch) 1 patch DAILY TD 03/15/21 09:00 04/03/21 08:57 Gabapentin (Neurontin) 100 mg TID PO 03/16/21 14:00 04/03/21 20:13 Ropinirole HCl (Requip) 0.5 mg TID PO 03/16/21 21:00 04/03/21 20:13 Clonazepam (KlonoPIN) 2 mg HS PO 03/16/21 21:00 03/19/21 21:01 DC 03/18/21 21:13 Clonazepam (KlonoPIN) 1.5 mg DAILY PO 03/17/21 09:00 03/23/21 08:00 DC 03/22/21 08:04 Clonazepam (KlonoPIN) 1 mg DAILY PO 03/23/21 09:00 03/26/21 15:27 DC 03/26/21 08:33 Clonazepam (KlonoPIN) 0.5 mg DAILY PO 03/29/21 09:00 03/26/21 15:27 DC Clonazepam (KlonoPIN) 1.5 mg HS PO 03/20/21 21:00 03/25/21 21:01 DC 03/25/21 19:56 Clonazepam (KlonoPIN) 1 mg QHS PO 03/26/21 21:00 03/26/21 15:27 DC Clonazepam (KlonoPIN) 0.5 mg HS PO 04/01/21 21:00 03/26/21 15:27 DC Lorazepam (Ativan) 1 mg BID PO 03/17/21 21:00 03/19/21 21:01 DC 03/19/21 08:13 Lorazepam (Ativan) 1 mg DAILY PO 03/20/21 09:00 03/22/21 08:59 DC 03/21/21 08:36 Clonazepam (KlonoPIN) 0.5 mg DAILY PO 03/27/21 09:00 03/28/21 21:00 DC 03/28/21 08:28 Clozapine (Clozaril) 25 mg HS PO 03/29/21 21:00 04/01/21 16:44 DC 03/31/21 20:26 Clozapine (Clozaril) 50 mg HS PO 04/01/21 21:00 04/03/21 20:13 I have reviewed the current psychotropics carefully including drug interactions. Risk benefit ratio favors no change other than as noted in my dictated progress note. Diagnosis: Problems: (1) Anxiety disorder (2) Impulse control disorder (3) Schizoaffective disorder, chronic condition with acute exacerbation BESSIE SOLORIO MD Apr 04, 2021 06:29
[2021-04-04] MEDS: ASCORBIC ACID 500 MG TABLET PO SCH ×2 (08:07→20:18)
[2021-04-04] MEDS: POTASSIUM CHLORIDE 10 MEQ TABLET.ER. PO SCH (08:08)
[2021-04-04] MEDS: BENZTROPINE MESYLATE 1 MG TABLET PO SCH ×2 (08:08→20:20)
[2021-04-04] MEDS: GABAPENTIN 100 MG CAPSULE. PO SCH ×3 (08:08→20:27)
[2021-04-04] MEDS: rOPINIRole 0.5 MG TABLET. PO SCH ×3 (08:08→20:19)
[2021-04-04] MEDS: ATORVASTATIN CALCIUM 20 MG TABLET PO SCH (08:09)
[2021-04-04] MEDS: metFORMIN 500 MG TABLET PO SCH ×2 (08:09→17:26)
[2021-04-04] MEDS: DIVALPROEX ER 500 MG TAB.ER.24H PO SCH ×2 (08:09→20:26)
[2021-04-04] MEDS: CELECOXIB 100 MG CAPSULE PO SCH (08:10)
[2021-04-04] MEDS: ASPIRIN CHEWABLE 81 MG TABLET. PO SCH (08:10)
[2021-04-04] MEDS: METOPROLOL TART IMMED RELEASE 25 MG TABLET. PO SCH ×2 (08:10→20:19)
[2021-04-04] MEDS: FERROUS SULFATE 325 MG TABLET. PO SCH ×2 (08:10→20:19)
[2021-04-04] MEDS: PANTOPRAZOLE 40 MG TABLET. PO SCH (08:10)
[2021-04-04] MEDS: LACTOBACILLUS RHAMNOSUS GG 1 CAPSULE. PO SCH ×2 (08:10→20:18)
[2021-04-04] MEDS: NICOTINE 21MG PATCH. TD SCH (08:11)
[2021-04-04] MEDS: LISINOPRIL 10 MG TABLET PO SCH (08:11)
[2021-04-04] MEDS: TROLAMINE SALICYLATE 10% TOPICAL CREAM 85GM JAR. TP SCH ×3 (08:20→20:26)
--- NOTE | 2021-04-04 10:57 | NUR ---
Patient up in wheelchair, Patient with incontinence at times. Appetite is adequate. Patient is compliant with medication, as it takes a while for her to take. New order for clozail increase to 75 mg and another increase in a week for total of 100 mg. make needs known to staff.
--- NOTE | 2021-04-04 12:29 | NUR ---
WEEKLY ACTIVITY THERAPY NOTE Date of Admission: 03/14/2021 Date of AT Assessment: 03/15 Precipitating behaviors that initiated intake and admission: crying fits, screaming, singing, labile mood, manic, insomnia, "wild eyed stare", eloped from facility, refusing medications, delusional- thinks staff and male peer are trying to have sex with her. Goal aimed: to increase engagement and socialization Initial Goal:Pt. will participate in at least one Activity Therapy group per day. Weekly progress towards goal: achieved Group participation level: 5 min, 2 mod, 1 full Weekly highlights: patio time and 31 of March snack Thursday, leisure listing Thursday, sand Thursday, milkshake Thursday Behaviors observed: labile, redirection needed, gets off topic often, tearful Plan: repeat goal Beneficial adaptations: redirection
--- NOTE | 2021-04-04 12:57 | NUR ---
Treatment team note: Pt is eating roughly 75% of meals and sleeping on average 8 hours per night. Pt continues to be labile (e.g. crying, laughing, agitated) and does discuss very sexually inappropriate context with staff. Pt reports that staff at her facility has sewn her "twat" shut and are jealous because people there want her. Pt also continues to be urinating all over herself and all over her room requiring multiple staff to aid cleaning pt up. Pt will continue her Clozaril increase over the last two week with an ELOS of Monday 04/16.
--- NOTE | 2021-04-04 13:00 | TX PLAN ---
Interdisciplinary Tx Plan Admission Information Mar 14, 2021 at 19:55 Legal Status (on Admission): Voluntary DPOA/Guardian Name: Coral Walters Contact Other Contact Name: Deshawn on Other Contact Verified Code Status: Full Code Allergies: Coded Allergies: haloperidol (Verified Allergy, Intermediate, 12/21/15) Diagnoses Primary Diagnosis: Schizoaffective D/O Bipolar type, mixed with psychotic features Reasons for Admission: Delusions, Sig. Change Sleep, Poor impulse control, Other Problem in Patient's Words: "I have nothing right now". Additional Admission Comments: According to the intake, pt is labile/manic AEB having crying fits, screaming then randomly singing, exit seeking, refusing cares, not sleeping, eloped and refusion meds. Pt is delusional thinking staff and male peer are trying to have sex with her. Problems Active Problems: resistive to cares labile delusional somatic complaints Inactive Problems: mostly medication compliant Pt Strengths/Limitations Ability for [place]: Poor Cognitive Functioning/Ability: Fair Communication Skills/Ability: Fair Financial Resources: Poor Insight/Judgement: Poor Intellectual Ability: Fair Physical Health: Poor Social Skills: Poor Stability in Family: Poor Stability in School/Work: Poor Verbal Skills: Fair Discharge Criteria Discharge Criteria: No need for close observ., Adequate arrangements @DC, Improved behavior, Improved mood/thought Preliminary Discharge Plan Preliminary DC Plan: Current Living Arrange. Special Precautions Fall Risk: Moderate Initial D/C Plan Pt [facility] on once stable. Identified Discharge Needs: Psychiatric services Currently Utilized Resources Currently Utilized Resources/P: Primary Care Physician Referrals Community Resources: Psychiatric follow-up Identified Problems/Hx/Goals Objectives/Short-Term Goals Short Term Goals: Dec. Hallucination/Delus, Dec. Outbursts, Medication Stabilization, Monitor Med Effects, Promote Coping Skill, Other Short Term Goals in Patient's: N/A Interventions/Frequency Staff Interventions/Frequency&: Psychiatrist to assess pt at least 3x per week for medication management. Social Work to assess pt at least 2x per week to identify barriers to care and dishcarge planning goals. Nursing to assess medication effects, behavior modification and completion of 15 minute checks daily. 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 Pt continues to be labile (e.g. crying, laughing, agitated) and does discuss very sexually inappropriate context with staff. Pt reports that staff at her facility has sewn her "twat" shut and are jealous because people there want her. Pt also continues to be urinating all over herself and all over her room requiring multiple staff to aid cleaning pt up. Pt will continue her Clozaril increase over the last two week with an ELOS of Monday 04/16. KIMBERLY MCKEON Apr 04, 2021 13:00
[2021-04-04] MEDS: risperiDONE 2 MG TABLET. PO SCH ×2 (13:36→20:18)
--- NOTE | 2021-04-04 13:40 | NUR ---
FATOUMATA emailed Emma at [email or web address] re: update on pt and informed her that FATOUMATA sent over notes for review. ELOS for pt is Monday 04/16.
[2021-04-04 16:04] VITALS: BP 125/71
[2021-04-04] MEDS: cloZAPine 25 MG TABLET PO SCH (20:18)
--- NOTE | 2021-04-04 22:13 | PDOC ---
Exam Note: Timothy Note: Please also refer to the separate dictated note~for this date of service dictated separately.~Patient seen individually. Discussed the patient with Nursing staff reviewed the chart.~Reviewed interim history and current functioning. Reviewed vital signs,~Labs/ Radiology~and current medications noted below. Continue current treatment with the changes noted in the dictated addendum note Assessment: Vital Signs/I&O: Vital Signs Date Time Temp Pulse Resp B/P (MAP) Pulse Ox O2 Delivery O2 Flow Rate FiO2 04/04/21 20:19 82 125/72 04/04/21 16:04 98.1 16 93 04/04/21 05:54 Room Air I & O 04/03/21 04/03/21 04/04/21 15:00 23:00 07:00 Intake Total 560 ml 320 ml Balance 560 ml 320 ml Current Medications: Meds: Current Medications Medications (Trade) Dose Ordered Sig/Arnold Route PRN Reason Start Time Stop Time Status Last Admin Dose Admin Acetaminophen (Tylenol) 650 mg PRN Q6HRS PRN PO MILD PAIN / TEMP > 100.3'F 03/14/21 20:45 03/17/21 15:50 Multi-Ingredient Ointment (Analgesic [place]) 1 shwetha PRN QID PRN TP MUSCLE PAIN 03/14/21 20:45 Al Hydroxide/Mg Hydroxide (Mylanta Plus Xs) 15 ml PRN AFTMEALHC PRN PO DYSPEPSIA 03/14/21 20:45 Magnesium Hydroxide (Milk Of Magnesia) 2,400 mg PRN QHS PRN PO CONSTIPATION 03/14/21 20:45 Acetaminophen (Tylenol) 650 mg TID PRN PO Back Pain 03/14/21 21:45 UNV Ascorbic Acid (Vitamin C) 500 mg BID PO 03/15/21 09:00 04/04/21 20:18 Aspirin (Aspirin Chewable) 81 mg DAILY PO 03/15/21 09:00 04/04/21 08:10 Atorvastatin Calcium (Lipitor) 20 mg DAILY PO 03/15/21 09:00 04/04/21 08:09 Carbidopa/Levodopa (Sinemet 10/100) 1 tab TID PO 03/14/21 23:00 03/23/21 13:44 DC 03/23/21 13:34 Vitamin D (Vitamin D3) 50,000 unit QWE PO 03/20/21 16:00 04/03/21 15:22 Ferrous Sulfate (Feosol) 325 mg BID PO 03/15/21 09:00 04/04/21 20:19 Furosemide (Lasix) 20 mg DAILY PO 03/15/21 09:00 04/02/21 15:34 DC 04/02/21 08:37 Gabapentin (Neurontin Oral Soln) 150 mg BID@1400,2200 PO 03/14/21 23:00 03/16/21 13:20 DC 03/14/21 23:14 Lisinopril (Prinivil) 10 mg DAILY PO 03/15/21 09:00 04/04/21 08:11 Metformin HCl (Glucophage) 500 mg BIDWMEALS PO 03/15/21 08:00 04/04/21 17:26 Metoprolol Tartrate (Lopressor) 12.5 mg BID PO 03/14/21 23:00 04/04/21 20:19 Tramadol HCl (Ultram) 50 mg PRN Q6HRS PRN PO MOD-SEV PAIN 03/14/21 21:45 04/03/21 15:24 Celecoxib (CeleBREX) 200 mg DAILY PO 03/15/21 09:00 04/04/21 08:10 Lactobacillus Rhamnosus (Culturelle) 1 cap BID PO 03/14/21 23:00 04/04/21 20:18 Pantoprazole Sodium (Protonix) 40 mg DAILY PO 03/15/21 09:00 04/04/21 08:10 Potassium Chloride (Klor-Con) 10 meq DAILY PO 03/15/21 09:00 04/04/21 08:08 Trolamine Salicylate (Myoplex) 1 shwetha TID TP 03/15/21 09:00 04/04/21 20:26 Benztropine Mesylate (Cogentin) 1 mg BID PO 03/14/21 23:00 04/04/21 20:20 Clonazepam (KlonoPIN) 2 mg BID PO 03/14/21 23:00 03/16/21 16:48 DC 03/16/21 09:00 Divalproex Sodium (Depakote Er) 1,000 mg BID PO 03/14/21 23:00 04/04/21 20:26 Fluphenazine HCl (Prolixin) 15 mg BID PO 03/14/21 23:00 04/04/21 20:26 Lorazepam (Ativan) 1 mg TID PO 03/14/21 23:00 03/16/21 18:45 DC 03/16/21 14:00 Risperidone (RisperDAL) 2 mg DAILY@1400 PO 03/15/21 14:00 04/04/21 13:36 Risperidone (RisperDAL) 4 mg QHS PO 03/14/21 23:00 04/04/21 20:18 Nicotine (Nicoderm Cq 21mg Patch) 1 patch DAILY TD 03/15/21 09:00 04/04/21 08:11 Gabapentin (Neurontin) 100 mg TID PO 03/16/21 14:00 04/04/21 20:27 Ropinirole HCl (Requip) 0.5 mg TID PO 03/16/21 21:00 04/04/21 20:19 Clonazepam (KlonoPIN) 2 mg HS PO 03/16/21 21:00 03/19/21 21:01 DC 03/18/21 21:13 Clonazepam (KlonoPIN) 1.5 mg DAILY PO 03/17/21 09:00 03/23/21 08:00 DC 03/22/21 08:04 Clonazepam (KlonoPIN) 1 mg DAILY PO 03/23/21 09:00 03/26/21 15:27 DC 03/26/21 08:33 Clonazepam (KlonoPIN) 0.5 mg DAILY PO 03/29/21 09:00 03/26/21 15:27 DC Clonazepam (KlonoPIN) 1.5 mg HS PO 03/20/21 21:00 03/25/21 21:01 DC 03/25/21 19:56 Clonazepam (KlonoPIN) 1 mg QHS PO 03/26/21 21:00 03/26/21 15:27 DC Clonazepam (KlonoPIN) 0.5 mg HS PO 04/01/21 21:00 03/26/21 15:27 DC Lorazepam (Ativan) 1 mg BID PO 03/17/21 21:00 03/19/21 21:01 DC 03/19/21 08:13 Lorazepam (Ativan) 1 mg DAILY PO 03/20/21 09:00 03/22/21 08:59 DC 03/21/21 08:36 Clonazepam (KlonoPIN) 0.5 mg DAILY PO 03/27/21 09:00 03/28/21 21:00 DC 03/28/21 08:28 Clozapine (Clozaril) 25 mg HS PO 03/29/21 21:00 04/01/21 16:44 DC 03/31/21 20:26 Clozapine (Clozaril) 50 mg HS PO 04/01/21 21:00 04/04/21 20:18 I have reviewed the current psychotropics carefully including drug interactions. Risk benefit ratio favors no change other than as noted in my dictated progress note. Diagnosis: Problems: (1) Anxiety disorder (2) Impulse control disorder (3) Schizoaffective disorder, chronic condition with acute exacerbation BESSIE SOLORIO MD Apr 04, 2021 22:13
--- NOTE | 2021-04-04 23:20 | NUR ---
No noted behaviors this evening; denies any c/o or concerns; spent evening in dayroom watching movie, socialized with staff and other pts; showered with staff assist prior to bedtime; takes all PO medications without difficulty; continues to use wheelchair at all times, transfers self to and from bed; sleeps at present, respirations even and unlabored.
[2021-04-05 06:15] VITALS: BP 153/90
--- NOTE | 2021-04-05 06:55 | PDOC ---
Exam Note: Timothy Note: This note is a late entry for 04/04/2021 covers elements not covered in my initial note. Subjective: The patient was seen individually in the morning of 04/04/2021 for a treatment team meeting with Jennifer Hill, Sharon Rivera (social work assistant), Mar, activity therapy and Michell DORAN, discussed and reviewed the chart. She slept 7-1/4 hours previous night. The patient continues to have some mood lability, somewhat restless, intermittently resistive to medications, sexually inappropriate. However, this evening as I met with her she was quite appropriate, still somewhat labile in her mood. Earlier she had made some sexually inappropriate remarks stating that at the alf people were being raped and murdered and that her facility wanted her to have sex with everyone. However, this evening as I met with her she was much more appropriate with no sexual inappropriate remarks. Review of Systems: Ambulation impaired in wheelchair. No CV, , pulmonary, eye, ENT system symptoms on review. Reliability varies. She complains of loose stools. We will defer to Dr. Claros. She continues to complain of chronic pain. Mental Status Exam: The patient is oriented to herself and situation. Speech coherent, rapid, less so than before. Abstraction fair. Computation impaired. Language function intact. Mood and affect less grandiose, slightly less paranoid this evening. Laboratory Data: Reviewed. Impression: Schizoaffective disorder bipolar type, mixed with psychotic features. Anxiety disorder unspecified. Impulse control disorder unspecified. Plan: No change from initial note. Valproic acid level therapeutic at 84, gradually increase Clozaril. Consider discharge in about 8 to 9 days. Assessment: Vital Signs/I&O: Vital Signs Date Time Temp Pulse Resp B/P (MAP) Pulse Ox O2 Delivery O2 Flow Rate FiO2 04/05/21 06:15 97.3 82 16 153/90 (111) 93 04/04/21 05:54 Room Air I & O 04/04/21 04/04/21 04/05/21 15:00 23:00 07:00 Intake Total 720 ml 600 ml Balance 720 ml 600 ml Current Medications: Meds: Current Medications Medications (Trade) Dose Ordered Sig/Arnold Route PRN Reason Start Time Stop Time Status Last Admin Dose Admin Acetaminophen (Tylenol) 650 mg PRN Q6HRS PRN PO MILD PAIN / TEMP > 100.3'F 03/14/21 20:45 03/17/21 15:50 Multi-Ingredient Ointment (Analgesic [place]) 1 shwetha PRN QID PRN TP MUSCLE PAIN 03/14/21 20:45 Al Hydroxide/Mg Hydroxide (Mylanta Plus Xs) 15 ml PRN AFTMEALHC PRN PO DYSPEPSIA 03/14/21 20:45 Magnesium Hydroxide (Milk Of Magnesia) 2,400 mg PRN QHS PRN PO CONSTIPATION 03/14/21 20:45 Acetaminophen (Tylenol) 650 mg TID PRN PO Back Pain 03/14/21 21:45 UNV Ascorbic Acid (Vitamin C) 500 mg BID PO 03/15/21 09:00 04/04/21 20:18 Aspirin (Aspirin Chewable) 81 mg DAILY PO 03/15/21 09:00 04/04/21 08:10 Atorvastatin Calcium (Lipitor) 20 mg DAILY PO 03/15/21 09:00 04/04/21 08:09 Carbidopa/Levodopa (Sinemet 10/100) 1 tab TID PO 03/14/21 23:00 03/23/21 13:44 DC 03/23/21 13:34 Vitamin D (Vitamin D3) 50,000 unit QWE PO 03/20/21 16:00 04/03/21 15:22 Ferrous Sulfate (Feosol) 325 mg BID PO 03/15/21 09:00 04/04/21 20:19 Furosemide (Lasix) 20 mg DAILY PO 03/15/21 09:00 04/02/21 15:34 DC 04/02/21 08:37 Gabapentin (Neurontin Oral Soln) 150 mg BID@1400,2200 PO 03/14/21 23:00 03/16/21 13:20 DC 03/14/21 23:14 Lisinopril (Prinivil) 10 mg DAILY PO 03/15/21 09:00 04/04/21 08:11 Metformin HCl (Glucophage) 500 mg BIDWMEALS PO 03/15/21 08:00 04/04/21 17:26 Metoprolol Tartrate (Lopressor) 12.5 mg BID PO 03/14/21 23:00 04/04/21 20:19 Tramadol HCl (Ultram) 50 mg PRN Q6HRS PRN PO MOD-SEV PAIN 03/14/21 21:45 04/03/21 15:24 Celecoxib (CeleBREX) 200 mg DAILY PO 03/15/21 09:00 04/04/21 08:10 Lactobacillus Rhamnosus (Culturelle) 1 cap BID PO 03/14/21 23:00 04/04/21 20:18 Pantoprazole Sodium (Protonix) 40 mg DAILY PO 03/15/21 09:00 04/04/21 08:10 Potassium Chloride (Klor-Con) 10 meq DAILY PO 03/15/21 09:00 04/04/21 08:08 Trolamine Salicylate (Myoplex) 1 shwetha TID TP 03/15/21 09:00 04/04/21 20:26 Benztropine Mesylate (Cogentin) 1 mg BID PO 03/14/21 23:00 04/04/21 20:20 Clonazepam (KlonoPIN) 2 mg BID PO 03/14/21 23:00 03/16/21 16:48 DC 03/16/21 09:00 Divalproex Sodium (Depakote Er) 1,000 mg BID PO 03/14/21 23:00 04/04/21 20:26 Fluphenazine HCl (Prolixin) 15 mg BID PO 03/14/21 23:00 04/04/21 20:26 Lorazepam (Ativan) 1 mg TID PO 03/14/21 23:00 03/16/21 18:45 DC 03/16/21 14:00 Risperidone (RisperDAL) 2 mg DAILY@1400 PO 03/15/21 14:00 04/04/21 13:36 Risperidone (RisperDAL) 4 mg QHS PO 03/14/21 23:00 04/04/21 20:18 Nicotine (Nicoderm Cq 21mg Patch) 1 patch DAILY TD 03/15/21 09:00 04/04/21 08:11 Gabapentin (Neurontin) 100 mg TID PO 03/16/21 14:00 04/04/21 20:27 Ropinirole HCl (Requip) 0.5 mg TID PO 03/16/21 21:00 04/04/21 20:19 Clonazepam (KlonoPIN) 2 mg HS PO 03/16/21 21:00 03/19/21 21:01 DC 03/18/21 21:13 Clonazepam (KlonoPIN) 1.5 mg DAILY PO 03/17/21 09:00 03/23/21 08:00 DC 03/22/21 08:04 Clonazepam (KlonoPIN) 1 mg DAILY PO 03/23/21 09:00 03/26/21 15:27 DC 03/26/21 08:33 Clonazepam (KlonoPIN) 0.5 mg DAILY PO 03/29/21 09:00 03/26/21 15:27 DC Clonazepam (KlonoPIN) 1.5 mg HS PO 03/20/21 21:00 03/25/21 21:01 DC 03/25/21 19:56 Clonazepam (KlonoPIN) 1 mg QHS PO 03/26/21 21:00 03/26/21 15:27 DC Clonazepam (KlonoPIN) 0.5 mg HS PO 04/01/21 21:00 03/26/21 15:27 DC Lorazepam (Ativan) 1 mg BID PO 03/17/21 21:00 03/19/21 21:01 DC 03/19/21 08:13 Lorazepam (Ativan) 1 mg DAILY PO 03/20/21 09:00 03/22/21 08:59 DC 03/21/21 08:36 Clonazepam (KlonoPIN) 0.5 mg DAILY PO 03/27/21 09:00 03/28/21 21:00 DC 03/28/21 08:28 Clozapine (Clozaril) 25 mg HS PO 03/29/21 21:00 04/01/21 16:44 DC 03/31/21 20:26 Clozapine (Clozaril) 50 mg HS PO 04/01/21 21:00 04/04/21 20:18 I have reviewed the current psychotropics carefully including drug interactions. Risk benefit ratio favors no change other than as noted in my dictated progress note. Diagnosis: Problems: (1) Anxiety disorder (2) Impulse control disorder (3) Schizoaffective disorder, chronic condition with acute exacerbation BESSIE SOLORIO MD Apr 05, 2021 06:55
[2021-04-05] MEDS: TROLAMINE SALICYLATE 10% TOPICAL CREAM 85GM JAR. TP SCH ×3 (09:00→21:00)
[2021-04-05] MEDS: rOPINIRole 0.5 MG TABLET. PO SCH ×2 (09:01→13:58)
[2021-04-05] MEDS: PANTOPRAZOLE 40 MG TABLET. PO SCH (09:01)
[2021-04-05] MEDS: ATORVASTATIN CALCIUM 20 MG TABLET PO SCH (09:01)
[2021-04-05] MEDS: BENZTROPINE MESYLATE 1 MG TABLET PO SCH ×2 (09:01→21:05)
[2021-04-05] MEDS: metFORMIN 500 MG TABLET PO SCH ×2 (09:01→17:28)
[2021-04-05] MEDS: ASCORBIC ACID 500 MG TABLET PO SCH ×2 (09:01→21:05)
[2021-04-05] MEDS: LISINOPRIL 10 MG TABLET PO SCH (09:01)
[2021-04-05] MEDS: ASPIRIN CHEWABLE 81 MG TABLET. PO SCH (09:01)
[2021-04-05] MEDS: CELECOXIB 100 MG CAPSULE PO SCH (09:01)
[2021-04-05] MEDS: DIVALPROEX ER 500 MG TAB.ER.24H PO SCH ×2 (09:02→21:03)
[2021-04-05] MEDS: FERROUS SULFATE 325 MG TABLET. PO SCH ×2 (09:03→21:05)
[2021-04-05] MEDS: POTASSIUM CHLORIDE 10 MEQ TABLET.ER. PO SCH (09:03)
[2021-04-05] MEDS: METOPROLOL TART IMMED RELEASE 25 MG TABLET. PO SCH ×2 (09:03→21:04)
[2021-04-05] MEDS: GABAPENTIN 100 MG CAPSULE. PO SCH ×4 (09:03→21:03)
[2021-04-05] MEDS: NICOTINE 21MG PATCH. TD SCH (09:04)
[2021-04-05] MEDS: LACTOBACILLUS RHAMNOSUS GG 1 CAPSULE. PO SCH ×2 (09:04→21:05)
[2021-04-05] MEDS: risperiDONE 2 MG TABLET. PO SCH ×3 (13:58→21:03)
--- NOTE | 2021-04-05 14:12 | NUR ---
Nsg Note; cindy cont to be labile in her mood and interactions with others. she was med compliant with the am meds, but refused her afternoon meds with no explanation. she talked a lot with another patient from her same facility but was sad he is returning there today. she told a COMMERCIAL HORTICULTURE INSTRUCTOR that they are , but they are not.
[2021-04-05 15:53] VITALS: BP 150/95
[2021-04-05] MEDS: cloZAPine 25 MG TABLET PO SCH (21:02)
[2021-04-05] MEDS: rOPINIRole 1 MG TABLET. PO SCH (21:02)
--- NOTE | 2021-04-05 21:56 | PDOC ---
Exam Note: Timothy Note: Please also refer to the separate dictated note~for this date of service dictated separately.~Patient seen individually. Discussed the patient with Nursing staff reviewed the chart.~Reviewed interim history and current functioning. Reviewed vital signs,~Labs/ Radiology~and current medications noted below. Continue current treatment with the changes noted in the dictated addendum note Assessment: Vital Signs/I&O: Vital Signs Date Time Temp Pulse Resp B/P (MAP) Pulse Ox O2 Delivery O2 Flow Rate FiO2 04/05/21 21:04 100 150/95 04/05/21 15:53 97.9 20 99 04/04/21 05:54 Room Air I & O 04/04/21 04/04/21 04/05/21 15:00 23:00 07:00 Intake Total 720 ml 600 ml Balance 720 ml 600 ml Current Medications: Meds: Current Medications Medications (Trade) Dose Ordered Sig/Arnold Route PRN Reason Start Time Stop Time Status Last Admin Dose Admin Acetaminophen (Tylenol) 650 mg PRN Q6HRS PRN PO MILD PAIN / TEMP > 100.3'F 03/14/21 20:45 03/17/21 15:50 Multi-Ingredient Ointment (Analgesic [place]) 1 shwetha PRN QID PRN TP MUSCLE PAIN 03/14/21 20:45 Al Hydroxide/Mg Hydroxide (Mylanta Plus Xs) 15 ml PRN AFTMEALHC PRN PO DYSPEPSIA 03/14/21 20:45 Magnesium Hydroxide (Milk Of Magnesia) 2,400 mg PRN QHS PRN PO CONSTIPATION 03/14/21 20:45 Acetaminophen (Tylenol) 650 mg TID PRN PO Back Pain 03/14/21 21:45 UNV Ascorbic Acid (Vitamin C) 500 mg BID PO 03/15/21 09:00 04/05/21 21:05 Aspirin (Aspirin Chewable) 81 mg DAILY PO 03/15/21 09:00 04/05/21 09:01 Atorvastatin Calcium (Lipitor) 20 mg DAILY PO 03/15/21 09:00 04/05/21 09:01 Carbidopa/Levodopa (Sinemet 10/100) 1 tab TID PO 03/14/21 23:00 03/23/21 13:44 DC 03/23/21 13:34 Vitamin D (Vitamin D3) 50,000 unit QWE PO 03/20/21 16:00 04/03/21 15:22 Ferrous Sulfate (Feosol) 325 mg BID PO 03/15/21 09:00 04/05/21 21:05 Furosemide (Lasix) 20 mg DAILY PO 03/15/21 09:00 04/02/21 15:34 DC 04/02/21 08:37 Gabapentin (Neurontin Oral Soln) 150 mg BID@1400,2200 PO 03/14/21 23:00 03/16/21 13:20 DC 03/14/21 23:14 Lisinopril (Prinivil) 10 mg DAILY PO 03/15/21 09:00 04/05/21 09:01 Metformin HCl (Glucophage) 500 mg BIDWMEALS PO 03/15/21 08:00 04/05/21 17:28 Metoprolol Tartrate (Lopressor) 12.5 mg BID PO 03/14/21 23:00 04/05/21 21:04 Tramadol HCl (Ultram) 50 mg PRN Q6HRS PRN PO MOD-SEV PAIN 03/14/21 21:45 04/03/21 15:24 Celecoxib (CeleBREX) 200 mg DAILY PO 03/15/21 09:00 04/05/21 09:01 Lactobacillus Rhamnosus (Culturelle) 1 cap BID PO 03/14/21 23:00 04/05/21 21:05 Pantoprazole Sodium (Protonix) 40 mg DAILY PO 03/15/21 09:00 04/05/21 09:01 Potassium Chloride (Klor-Con) 10 meq DAILY PO 03/15/21 09:00 04/05/21 09:03 Trolamine Salicylate (Myoplex) 1 shwetha TID TP 03/15/21 09:00 04/05/21 21:00 Benztropine Mesylate (Cogentin) 1 mg BID PO 03/14/21 23:00 04/05/21 21:05 Clonazepam (KlonoPIN) 2 mg BID PO 03/14/21 23:00 03/16/21 16:48 DC 03/16/21 09:00 Divalproex Sodium (Depakote Er) 1,000 mg BID PO 03/14/21 23:00 04/05/21 21:03 Fluphenazine HCl (Prolixin) 15 mg BID PO 03/14/21 23:00 04/05/21 21:05 Lorazepam (Ativan) 1 mg TID PO 03/14/21 23:00 03/16/21 18:45 DC 03/16/21 14:00 Risperidone (RisperDAL) 2 mg DAILY@1400 PO 03/15/21 14:00 04/05/21 15:22 Risperidone (RisperDAL) 4 mg QHS PO 03/14/21 23:00 04/05/21 21:03 Nicotine (Nicoderm Cq 21mg Patch) 1 patch DAILY TD 03/15/21 09:00 04/05/21 09:04 Gabapentin (Neurontin) 100 mg TID PO 03/16/21 14:00 04/05/21 21:03 Ropinirole HCl (Requip) 0.5 mg TID PO 03/16/21 21:00 04/05/21 17:12 DC 04/05/21 09:01 Clonazepam (KlonoPIN) 2 mg HS PO 03/16/21 21:00 03/19/21 21:01 DC 03/18/21 21:13 Clonazepam (KlonoPIN) 1.5 mg DAILY PO 03/17/21 09:00 03/23/21 08:00 DC 03/22/21 08:04 Clonazepam (KlonoPIN) 1 mg DAILY PO 03/23/21 09:00 03/26/21 15:27 DC 03/26/21 08:33 Clonazepam (KlonoPIN) 0.5 mg DAILY PO 03/29/21 09:00 03/26/21 15:27 DC Clonazepam (KlonoPIN) 1.5 mg HS PO 03/20/21 21:00 03/25/21 21:01 DC 03/25/21 19:56 Clonazepam (KlonoPIN) 1 mg QHS PO 03/26/21 21:00 03/26/21 15:27 DC Clonazepam (KlonoPIN) 0.5 mg HS PO 04/01/21 21:00 03/26/21 15:27 DC Lorazepam (Ativan) 1 mg BID PO 03/17/21 21:00 03/19/21 21:01 DC 03/19/21 08:13 Lorazepam (Ativan) 1 mg DAILY PO 03/20/21 09:00 03/22/21 08:59 DC 03/21/21 08:36 Clonazepam (KlonoPIN) 0.5 mg DAILY PO 03/27/21 09:00 03/28/21 21:00 DC 03/28/21 08:28 Clozapine (Clozaril) 25 mg HS PO 03/29/21 21:00 04/01/21 16:44 DC 03/31/21 20:26 Clozapine (Clozaril) 50 mg HS PO 04/01/21 21:00 04/05/21 21:02 Ropinirole HCl (Requip) 1 mg HS PO 04/05/21 21:00 04/05/21 21:02 Current Medications Medications (Trade) Dose Ordered Sig/Arnold Route PRN Reason Start Time Stop Time Status Last Admin Dose Admin Ropinirole HCl (Requip) 1 mg HS PO 04/05/21 21:00 04/05/21 21:02 I have reviewed the current psychotropics carefully including drug interactions. Risk benefit ratio favors no change other than as noted in my dictated progress note. Diagnosis: Problems: (1) Anxiety disorder (2) Impulse control disorder (3) Schizoaffective disorder, chronic condition with acute exacerbation BESSIE SOLORIO MD Apr 05, 2021 21:56
--- NOTE | 2021-04-05 23:59 | NUR ---
Patient is in the hallway on assumption of care, self propelling down the hallway. She is labile, suspicious, and delusional. She states "My name is Chitra." I asked how she spelled it, and she said "[id number]. She's here now, that other one is gone." This nurse asked what happened to her. She answered "Ruthy is gone, she was attacked by rats and snakes and rodents, they were all over her body last night. She's now." She was suspicious of her medication, stating "That's poison, there are too many pills. You are all trying to poison me. Just give me them, whatever." She then took her medications and was willing to let ASSISTANT PROFESSOR OF HISTORY help her to bed. She denies any pain or discomfort. Appears to be sleeping comfortably at present time. Will continue to monitor.
[2021-04-06 06:12] VITALS: BP 139/83
[2021-04-06] MEDS: FERROUS SULFATE 325 MG TABLET. PO SCH ×2 (09:11→20:20)
[2021-04-06] MEDS: DIVALPROEX ER 500 MG TAB.ER.24H PO SCH ×2 (09:13→20:19)
[2021-04-06] MEDS: BENZTROPINE MESYLATE 1 MG TABLET PO SCH ×2 (09:20→20:20)
[2021-04-06] MEDS: POTASSIUM CHLORIDE 10 MEQ TABLET.ER. PO SCH (09:20)
[2021-04-06] MEDS: ASPIRIN CHEWABLE 81 MG TABLET. PO SCH (09:20)
[2021-04-06] MEDS: ATORVASTATIN CALCIUM 20 MG TABLET PO SCH (09:20)
[2021-04-06] MEDS: ASCORBIC ACID 500 MG TABLET PO SCH ×2 (09:20→20:20)
[2021-04-06] MEDS: GABAPENTIN 100 MG CAPSULE. PO SCH ×3 (09:20→20:18)
[2021-04-06] MEDS: NICOTINE 21MG PATCH. TD SCH (09:20)
[2021-04-06] MEDS: CELECOXIB 100 MG CAPSULE PO SCH (09:20)
[2021-04-06] MEDS: LISINOPRIL 10 MG TABLET PO SCH (09:20)
[2021-04-06] MEDS: metFORMIN 500 MG TABLET PO SCH ×2 (09:20→17:16)
[2021-04-06] MEDS: TROLAMINE SALICYLATE 10% TOPICAL CREAM 85GM JAR. TP SCH ×3 (09:20→20:21)
[2021-04-06] MEDS: METOPROLOL TART IMMED RELEASE 25 MG TABLET. PO SCH ×2 (09:20→20:21)
[2021-04-06] MEDS: LACTOBACILLUS RHAMNOSUS GG 1 CAPSULE. PO SCH ×2 (09:20→20:18)
[2021-04-06] MEDS: PANTOPRAZOLE 40 MG TABLET. PO SCH (09:20)
[2021-04-06] MEDS: risperiDONE 2 MG TABLET. PO SCH ×2 (13:32→20:19)
--- NOTE | 2021-04-06 14:17 | NUR ---
Nursing note: Patient in bed room at time of AM med pass and assessment, medication taken whole. She refused most of her meds, she reported her medications make her hallucinate as well as being suspicious stating they are going to kill her. She is oriented to self & place. She thought it was May 2021. Patient denies pain or discomfort at this time. She self propels in wheel chair and can transfer without assistance but refuses to when it is time for her to go to the bathroom requiring standby assist. She urinated on the floor in the day room. She is currently sitting in the day room in her wheel chair. Will continue to monitor.
[2021-04-06 15:55] VITALS: BP 121/76
[2021-04-06] MEDS: rOPINIRole 1 MG TABLET. PO SCH (20:18)
[2021-04-06] MEDS: cloZAPine 25 MG TABLET PO SCH (20:19)
--- NOTE | 2021-04-06 22:12 | PDOC ---
Exam Note: Timothy Note: Please also refer to the separate dictated note~for this date of service dictated separately.~Patient seen individually. Discussed the patient with Nursing staff reviewed the chart.~Reviewed interim history and current functioning. Reviewed vital signs,~Labs/ Radiology~and current medications noted below. Continue current treatment with the changes noted in the dictated addendum note Assessment: Vital Signs/I&O: Vital Signs Date Time Temp Pulse Resp B/P (MAP) Pulse Ox O2 Delivery O2 Flow Rate FiO2 04/06/21 20:21 94 121/76 04/06/21 15:55 97.6 20 97 04/04/21 05:54 Room Air I & O 04/05/21 04/05/21 04/06/21 15:00 23:00 07:00 Intake Total 840 ml 840 ml Balance 840 ml 840 ml Current Medications: Meds: Current Medications Medications (Trade) Dose Ordered Sig/Arnold Route PRN Reason Start Time Stop Time Status Last Admin Dose Admin Acetaminophen (Tylenol) 650 mg PRN Q6HRS PRN PO MILD PAIN / TEMP > 100.3'F 03/14/21 20:45 03/17/21 15:50 Multi-Ingredient Ointment (Analgesic [place]) 1 shwetha PRN QID PRN TP MUSCLE PAIN 03/14/21 20:45 Al Hydroxide/Mg Hydroxide (Mylanta Plus Xs) 15 ml PRN AFTMEALHC PRN PO DYSPEPSIA 03/14/21 20:45 Magnesium Hydroxide (Milk Of Magnesia) 2,400 mg PRN QHS PRN PO CONSTIPATION 03/14/21 20:45 Acetaminophen (Tylenol) 650 mg TID PRN PO Back Pain 03/14/21 21:45 UNV Ascorbic Acid (Vitamin C) 500 mg BID PO 03/15/21 09:00 04/06/21 20:20 Aspirin (Aspirin Chewable) 81 mg DAILY PO 03/15/21 09:00 04/05/21 09:01 Atorvastatin Calcium (Lipitor) 20 mg DAILY PO 03/15/21 09:00 04/05/21 09:01 Carbidopa/Levodopa (Sinemet 10/100) 1 tab TID PO 03/14/21 23:00 03/23/21 13:44 DC 03/23/21 13:34 Vitamin D (Vitamin D3) 50,000 unit QWE PO 03/20/21 16:00 04/03/21 15:22 Ferrous Sulfate (Feosol) 325 mg BID PO 03/15/21 09:00 04/06/21 20:20 Furosemide (Lasix) 20 mg DAILY PO 03/15/21 09:00 04/02/21 15:34 DC 04/02/21 08:37 Gabapentin (Neurontin Oral Soln) 150 mg BID@1400,2200 PO 03/14/21 23:00 03/16/21 13:20 DC 03/14/21 23:14 Lisinopril (Prinivil) 10 mg DAILY PO 03/15/21 09:00 04/05/21 09:01 Metformin HCl (Glucophage) 500 mg BIDWMEALS PO 03/15/21 08:00 04/06/21 17:16 Metoprolol Tartrate (Lopressor) 12.5 mg BID PO 03/14/21 23:00 04/06/21 20:21 Tramadol HCl (Ultram) 50 mg PRN Q6HRS PRN PO MOD-SEV PAIN 03/14/21 21:45 04/03/21 15:24 Celecoxib (CeleBREX) 200 mg DAILY PO 03/15/21 09:00 04/05/21 09:01 Lactobacillus Rhamnosus (Culturelle) 1 cap BID PO 03/14/21 23:00 04/06/21 20:18 Pantoprazole Sodium (Protonix) 40 mg DAILY PO 03/15/21 09:00 04/05/21 09:01 Potassium Chloride (Klor-Con) 10 meq DAILY PO 03/15/21 09:00 04/05/21 09:03 Trolamine Salicylate (Myoplex) 1 shwetha TID TP 03/15/21 09:00 04/06/21 20:21 Benztropine Mesylate (Cogentin) 1 mg BID PO 03/14/21 23:00 04/06/21 20:20 Clonazepam (KlonoPIN) 2 mg BID PO 03/14/21 23:00 03/16/21 16:48 DC 03/16/21 09:00 Divalproex Sodium (Depakote Er) 1,000 mg BID PO 03/14/21 23:00 04/06/21 20:19 Fluphenazine HCl (Prolixin) 15 mg BID PO 03/14/21 23:00 04/06/21 20:21 Lorazepam (Ativan) 1 mg TID PO 03/14/21 23:00 03/16/21 18:45 DC 03/16/21 14:00 Risperidone (RisperDAL) 2 mg DAILY@1400 PO 03/15/21 14:00 04/06/21 13:32 Risperidone (RisperDAL) 4 mg QHS PO 03/14/21 23:00 04/06/21 20:19 Nicotine (Nicoderm Cq 21mg Patch) 1 patch DAILY TD 03/15/21 09:00 04/05/21 09:04 Gabapentin (Neurontin) 100 mg TID PO 03/16/21 14:00 04/06/21 20:18 Ropinirole HCl (Requip) 0.5 mg TID PO 03/16/21 21:00 04/05/21 17:12 DC 04/05/21 09:01 Clonazepam (KlonoPIN) 2 mg HS PO 03/16/21 21:00 03/19/21 21:01 DC 03/18/21 21:13 Clonazepam (KlonoPIN) 1.5 mg DAILY PO 03/17/21 09:00 03/23/21 08:00 DC 03/22/21 08:04 Clonazepam (KlonoPIN) 1 mg DAILY PO 03/23/21 09:00 03/26/21 15:27 DC 03/26/21 08:33 Clonazepam (KlonoPIN) 0.5 mg DAILY PO 03/29/21 09:00 03/26/21 15:27 DC Clonazepam (KlonoPIN) 1.5 mg HS PO 03/20/21 21:00 03/25/21 21:01 DC 03/25/21 19:56 Clonazepam (KlonoPIN) 1 mg QHS PO 03/26/21 21:00 03/26/21 15:27 DC Clonazepam (KlonoPIN) 0.5 mg HS PO 04/01/21 21:00 03/26/21 15:27 DC Lorazepam (Ativan) 1 mg BID PO 03/17/21 21:00 03/19/21 21:01 DC 03/19/21 08:13 Lorazepam (Ativan) 1 mg DAILY PO 03/20/21 09:00 03/22/21 08:59 DC 03/21/21 08:36 Clonazepam (KlonoPIN) 0.5 mg DAILY PO 03/27/21 09:00 03/28/21 21:00 DC 03/28/21 08:28 Clozapine (Clozaril) 25 mg HS PO 03/29/21 21:00 04/01/21 16:44 DC 03/31/21 20:26 Clozapine (Clozaril) 50 mg HS PO 04/01/21 21:00 04/06/21 20:19 Ropinirole HCl (Requip) 1 mg HS PO 04/05/21 21:00 04/06/21 20:18 I have reviewed the current psychotropics carefully including drug interactions. Risk benefit ratio favors no change other than as noted in my dictated progress note. Diagnosis: Problems: (1) Anxiety disorder (2) Impulse control disorder (3) Schizoaffective disorder, chronic condition with acute exacerbation BESSIE SOLORIO MD Apr 06, 2021 22:12
--- NOTE | 2021-04-06 22:36 | NUR ---
Patient is in the hallway on assumption of care, self propelling down the hallway. She is labile, suspicious, and delusional. She continues to believe that her medications are poisoning her, but she did comply with taking them from this nurse. She stated "You just keep following me around everywhere I live, so you can poison me." This nurse attempted to correct the patient, but she was not amenable to the explanation and continued to insist. She denies any pain or discomfort. Appears to be sleeping comfortably at present time. Will continue to monitor.
[2021-04-07 05:46] VITALS: BP 150/83
--- NOTE | 2021-04-07 08:07 | PDOC ---
Exam Note: Timothy Note: This note is a late entry for 04/05/2021 covers elements not covered in my initial note. Subjective: The patient was seen individually in the evening of 04/05/2021 with Bren DORAN, discussed and reviewed the chart. She slept 4-1/2 hours previous night. Appetite 75%-100%. She is more compliant with her medications, still delusional and more resistive with evening medications. She took her Risperdal after negotiating with nursing staff regarding her shower. She is talking to staff and telling them she was and was going to get her car and drive around the country. Review of Systems: Ambulation impaired in wheelchair. No CV, , pulmonary, eye, ENT system symptoms on review. Mental Status Exam: The patient is oriented to herself and situation. She seemed a little more settled today but still had a labile mood, somewhat tearful at times. She was trying to emphasize what medications she will take and what she will not and wanted to make sure I would write that down. Speech coherent, rapid, less so than before. Abstraction fair. Computation impaired. Language function intact. Mood and affect delusional. Laboratory Data: Reviewed. Impression: Schizoaffective disorder bipolar type, mixed with psychotic features. Anxiety disorder unspecified. Impulse control disorder unspecified. Plan: No change from initial note. The patient is on ReQuip 0.5 mg t.i.d. for restless legs. This would be worsening her mood lability/bipolar mood swings and we will reduce it down to 1 mg p.o. h.s. Continue rest of the psychotropics. Check CBC, absolute neutrophil count next Thursday and increase the Clozaril further. Assessment: Vital Signs/I&O: Vital Signs Date Time Temp Pulse Resp B/P (MAP) Pulse Ox O2 Delivery O2 Flow Rate FiO2 04/07/21 05:46 98.2 96 20 150/83 (105) 95 04/04/21 05:54 Room Air I & O 04/06/21 04/06/21 04/07/21 15:00 23:00 07:00 Intake Total 360 ml 660 ml Balance 360 ml 660 ml Current Medications: Meds: Current Medications Medications (Trade) Dose Ordered Sig/Arnold Route PRN Reason Start Time Stop Time Status Last Admin Dose Admin Acetaminophen (Tylenol) 650 mg PRN Q6HRS PRN PO MILD PAIN / TEMP > 100.3'F 03/14/21 20:45 03/17/21 15:50 Multi-Ingredient Ointment (Analgesic [place]) 1 shwetha PRN QID PRN TP MUSCLE PAIN 03/14/21 20:45 Al Hydroxide/Mg Hydroxide (Mylanta Plus Xs) 15 ml PRN AFTMEALHC PRN PO DYSPEPSIA 03/14/21 20:45 Magnesium Hydroxide (Milk Of Magnesia) 2,400 mg PRN QHS PRN PO CONSTIPATION 03/14/21 20:45 Acetaminophen (Tylenol) 650 mg TID PRN PO Back Pain 03/14/21 21:45 UNV Ascorbic Acid (Vitamin C) 500 mg BID PO 03/15/21 09:00 04/06/21 20:20 Aspirin (Aspirin Chewable) 81 mg DAILY PO 03/15/21 09:00 04/05/21 09:01 Atorvastatin Calcium (Lipitor) 20 mg DAILY PO 03/15/21 09:00 04/05/21 09:01 Carbidopa/Levodopa (Sinemet 10/100) 1 tab TID PO 03/14/21 23:00 03/23/21 13:44 DC 03/23/21 13:34 Vitamin D (Vitamin D3) 50,000 unit QWE PO 03/20/21 16:00 04/03/21 15:22 Ferrous Sulfate (Feosol) 325 mg BID PO 03/15/21 09:00 04/06/21 20:20 Furosemide (Lasix) 20 mg DAILY PO 03/15/21 09:00 04/02/21 15:34 DC 04/02/21 08:37 Gabapentin (Neurontin Oral Soln) 150 mg BID@1400,2200 PO 03/14/21 23:00 03/16/21 13:20 DC 03/14/21 23:14 Lisinopril (Prinivil) 10 mg DAILY PO 03/15/21 09:00 04/05/21 09:01 Metformin HCl (Glucophage) 500 mg BIDWMEALS PO 03/15/21 08:00 04/06/21 17:16 Metoprolol Tartrate (Lopressor) 12.5 mg BID PO 03/14/21 23:00 04/06/21 20:21 Tramadol HCl (Ultram) 50 mg PRN Q6HRS PRN PO MOD-SEV PAIN 03/14/21 21:45 04/03/21 15:24 Celecoxib (CeleBREX) 200 mg DAILY PO 03/15/21 09:00 04/05/21 09:01 Lactobacillus Rhamnosus (Culturelle) 1 cap BID PO 03/14/21 23:00 04/06/21 20:18 Pantoprazole Sodium (Protonix) 40 mg DAILY PO 03/15/21 09:00 04/05/21 09:01 Potassium Chloride (Klor-Con) 10 meq DAILY PO 03/15/21 09:00 04/05/21 09:03 Trolamine Salicylate (Myoplex) 1 shwetha TID TP 03/15/21 09:00 04/06/21 20:21 Benztropine Mesylate (Cogentin) 1 mg BID PO 03/14/21 23:00 04/06/21 20:20 Clonazepam (KlonoPIN) 2 mg BID PO 03/14/21 23:00 03/16/21 16:48 DC 03/16/21 09:00 Divalproex Sodium (Depakote Er) 1,000 mg BID PO 03/14/21 23:00 04/06/21 20:19 Fluphenazine HCl (Prolixin) 15 mg BID PO 03/14/21 23:00 04/06/21 20:21 Lorazepam (Ativan) 1 mg TID PO 03/14/21 23:00 03/16/21 18:45 DC 03/16/21 14:00 Risperidone (RisperDAL) 2 mg DAILY@1400 PO 03/15/21 14:00 04/06/21 13:32 Risperidone (RisperDAL) 4 mg QHS PO 03/14/21 23:00 04/06/21 20:19 Nicotine (Nicoderm Cq 21mg Patch) 1 patch DAILY TD 03/15/21 09:00 04/05/21 09:04 Gabapentin (Neurontin) 100 mg TID PO 03/16/21 14:00 04/06/21 20:18 Ropinirole HCl (Requip) 0.5 mg TID PO 03/16/21 21:00 04/05/21 17:12 DC 04/05/21 09:01 Clonazepam (KlonoPIN) 2 mg HS PO 03/16/21 21:00 03/19/21 21:01 DC 03/18/21 21:13 Clonazepam (KlonoPIN) 1.5 mg DAILY PO 03/17/21 09:00 03/23/21 08:00 DC 03/22/21 08:04 Clonazepam (KlonoPIN) 1 mg DAILY PO 03/23/21 09:00 03/26/21 15:27 DC 03/26/21 08:33 Clonazepam (KlonoPIN) 0.5 mg DAILY PO 03/29/21 09:00 03/26/21 15:27 DC Clonazepam (KlonoPIN) 1.5 mg HS PO 03/20/21 21:00 03/25/21 21:01 DC 03/25/21 19:56 Clonazepam (KlonoPIN) 1 mg QHS PO 03/26/21 21:00 03/26/21 15:27 DC Clonazepam (KlonoPIN) 0.5 mg HS PO 04/01/21 21:00 03/26/21 15:27 DC Lorazepam (Ativan) 1 mg BID PO 03/17/21 21:00 03/19/21 21:01 DC 03/19/21 08:13 Lorazepam (Ativan) 1 mg DAILY PO 03/20/21 09:00 03/22/21 08:59 DC 03/21/21 08:36 Clonazepam (KlonoPIN) 0.5 mg DAILY PO 03/27/21 09:00 03/28/21 21:00 DC 03/28/21 08:28 Clozapine (Clozaril) 25 mg HS PO 03/29/21 21:00 04/01/21 16:44 DC 03/31/21 20:26 Clozapine (Clozaril) 50 mg HS PO 04/01/21 21:00 04/06/21 20:19 Ropinirole HCl (Requip) 1 mg HS PO 04/05/21 21:00 04/06/21 20:18 I have reviewed the current psychotropics carefully including drug interactions. Risk benefit ratio favors no change other than as noted in my dictated progress note. Diagnosis: Problems: (1) Anxiety disorder (2) Impulse control disorder (3) Schizoaffective disorder, chronic condition with acute exacerbation BESSIE SOLORIO MD Apr 07, 2021 08:07
--- NOTE | 2021-04-07 08:29 | PDOC ---
Exam Note: Timothy Note: This note is a late entry for 04/06/2021 covers elements not covered in my initial note. Subjective: The patient was seen individually in the evening of 04/06/2021 with Alfreda DORAN, discussed and reviewed the chart. She slept 6-1/2 hours previous night. The patient is picky with her medications, refused several of her meds this morning. Urinated on the floor in the dining room in the morning, refused breakfast but ate some lunch, paranoid, suspicious believes the medications will kill her. She only agrees to take two medications at a time. I addressed this with her individually in her room at some length after she had had a shower. Review of Systems: Ambulation impaired in wheelchair. She continues to have some parkinsonian movements and we will monitor this. No CV, , pulmonary, eye, ENT system symptoms on review. Reliability varies. She does complain of loose tooth, wants it removed. Mental Status Exam: The patient is oriented to herself and situation. Speech coherent, has some latency. Abstraction fair. Computation impaired. Language function intact. Mood and affect somewhat labile, anxious, tearful at times. Laboratory Data: Reviewed. Impression: Schizoaffective disorder bipolar type, mixed with psychotic features. Anxiety disorder unspecified. Impulse control disorder unspecified. Plan: No change from initial note. We have reduced the ReQuip and see how she does with this. Assessment: Vital Signs/I&O: Vital Signs Date Time Temp Pulse Resp B/P (MAP) Pulse Ox O2 Delivery O2 Flow Rate FiO2 04/07/21 05:46 98.2 96 20 150/83 (105) 95 04/04/21 05:54 Room Air I & O 04/06/21 04/06/21 04/07/21 15:00 23:00 07:00 Intake Total 360 ml 660 ml Balance 360 ml 660 ml Current Medications: Meds: Current Medications Medications (Trade) Dose Ordered Sig/Arnold Route PRN Reason Start Time Stop Time Status Last Admin Dose Admin Acetaminophen (Tylenol) 650 mg PRN Q6HRS PRN PO MILD PAIN / TEMP > 100.3'F 03/14/21 20:45 03/17/21 15:50 Multi-Ingredient Ointment (Analgesic [place]) 1 shwetha PRN QID PRN TP MUSCLE PAIN 03/14/21 20:45 Al Hydroxide/Mg Hydroxide (Mylanta Plus Xs) 15 ml PRN AFTMEALHC PRN PO DYSPEPSIA 03/14/21 20:45 Magnesium Hydroxide (Milk Of Magnesia) 2,400 mg PRN QHS PRN PO CONSTIPATION 03/14/21 20:45 Acetaminophen (Tylenol) 650 mg TID PRN PO Back Pain 03/14/21 21:45 UNV Ascorbic Acid (Vitamin C) 500 mg BID PO 03/15/21 09:00 04/06/21 20:20 Aspirin (Aspirin Chewable) 81 mg DAILY PO 03/15/21 09:00 04/05/21 09:01 Atorvastatin Calcium (Lipitor) 20 mg DAILY PO 03/15/21 09:00 04/05/21 09:01 Carbidopa/Levodopa (Sinemet 10) 1 tab TID PO 03/14/21 23:00 03/23/21 13:44 DC 03/23/21 13:34 Vitamin D (Vitamin D3) 50,000 unit QWE PO 03/20/21 16:00 04/03/21 15:22 Ferrous Sulfate (Feosol) 325 mg BID PO 03/15/21 09:00 04/06/21 20:20 Furosemide (Lasix) 20 mg DAILY PO 03/15/21 09:00 04/02/21 15:34 DC 04/02/21 08:37 Gabapentin (Neurontin Oral Soln) 150 mg BID@1400,2200 PO 03/14/21 23:00 03/16/21 13:20 DC 03/14/21 23:14 Lisinopril (Prinivil) 10 mg DAILY PO 03/15/21 09:00 04/05/21 09:01 Metformin HCl (Glucophage) 500 mg BIDWMEALS PO 03/15/21 08:00 04/06/21 17:16 Metoprolol Tartrate (Lopressor) 12.5 mg BID PO 03/14/21 23:00 04/06/21 20:21 Tramadol HCl (Ultram) 50 mg PRN Q6HRS PRN PO MOD-SEV PAIN 03/14/21 21:45 04/03/21 15:24 Celecoxib (CeleBREX) 200 mg DAILY PO 03/15/21 09:00 04/05/21 09:01 Lactobacillus Rhamnosus (Culturelle) 1 cap BID PO 03/14/21 23:00 04/06/21 20:18 Pantoprazole Sodium (Protonix) 40 mg DAILY PO 03/15/21 09:00 04/05/21 09:01 Potassium Chloride (Klor-Con) 10 meq DAILY PO 03/15/21 09:00 04/05/21 09:03 Trolamine Salicylate (Myoplex) 1 shwetha TID TP 03/15/21 09:00 04/06/21 20:21 Benztropine Mesylate (Cogentin) 1 mg BID PO 03/14/21 23:00 04/06/21 20:20 Clonazepam (KlonoPIN) 2 mg BID PO 03/14/21 23:00 03/16/21 16:48 DC 03/16/21 09:00 Divalproex Sodium (Depakote Er) 1,000 mg BID PO 03/14/21 23:00 04/06/21 20:19 Fluphenazine HCl (Prolixin) 15 mg BID PO 03/14/21 23:00 04/06/21 20:21 Lorazepam (Ativan) 1 mg TID PO 03/14/21 23:00 03/16/21 18:45 DC 03/16/21 14:00 Risperidone (RisperDAL) 2 mg DAILY@1400 PO 03/15/21 14:00 04/06/21 13:32 Risperidone (RisperDAL) 4 mg QHS PO 03/14/21 23:00 04/06/21 20:19 Nicotine (Nicoderm Cq 21mg Patch) 1 patch DAILY TD 03/15/21 09:00 04/05/21 09:04 Gabapentin (Neurontin) 100 mg TID PO 03/16/21 14:00 04/06/21 20:18 Ropinirole HCl (Requip) 0.5 mg TID PO 03/16/21 21:00 04/05/21 17:12 DC 04/05/21 09:01 Clonazepam (KlonoPIN) 2 mg HS PO 03/16/21 21:00 03/19/21 21:01 DC 03/18/21 21:13 Clonazepam (KlonoPIN) 1.5 mg DAILY PO 03/17/21 09:00 03/23/21 08:00 DC 03/22/21 08:04 Clonazepam (KlonoPIN) 1 mg DAILY PO 03/23/21 09:00 03/26/21 15:27 DC 03/26/21 08:33 Clonazepam (KlonoPIN) 0.5 mg DAILY PO 03/29/21 09:00 03/26/21 15:27 DC Clonazepam (KlonoPIN) 1.5 mg HS PO 03/20/21 21:00 03/25/21 21:01 DC 03/25/21 19:56 Clonazepam (KlonoPIN) 1 mg QHS PO 03/26/21 21:00 03/26/21 15:27 DC Clonazepam (KlonoPIN) 0.5 mg HS PO 04/01/21 21:00 03/26/21 15:27 DC Lorazepam (Ativan) 1 mg BID PO 03/17/21 21:00 03/19/21 21:01 DC 03/19/21 08:13 Lorazepam (Ativan) 1 mg DAILY PO 03/20/21 09:00 03/22/21 08:59 DC 03/21/21 08:36 Clonazepam (KlonoPIN) 0.5 mg DAILY PO 03/27/21 09:00 03/28/21 21:00 DC 03/28/21 08:28 Clozapine (Clozaril) 25 mg HS PO 03/29/21 21:00 04/01/21 16:44 DC 03/31/21 20:26 Clozapine (Clozaril) 50 mg HS PO 04/01/21 21:00 04/06/21 20:19 Ropinirole HCl (Requip) 1 mg HS PO 04/05/21 21:00 04/06/21 20:18 I have reviewed the current psychotropics carefully including drug interactions. Risk benefit ratio favors no change other than as noted in my dictated progress note. Diagnosis: Problems: (1) Anxiety disorder (2) Impulse control disorder (3) Schizoaffective disorder, chronic condition with acute exacerbation BESSIE SOLORIO MD Apr 07, 2021 08:29
[2021-04-07] MEDS: NICOTINE 21MG PATCH. TD SCH (08:48)
[2021-04-07] MEDS: CELECOXIB 100 MG CAPSULE PO SCH (08:49)
[2021-04-07] MEDS: ATORVASTATIN CALCIUM 20 MG TABLET PO SCH (08:49)
[2021-04-07] MEDS: METOPROLOL TART IMMED RELEASE 25 MG TABLET. PO SCH ×2 (08:49→20:09)
[2021-04-07] MEDS: metFORMIN 500 MG TABLET PO SCH ×2 (08:49→17:28)
[2021-04-07] MEDS: GABAPENTIN 100 MG CAPSULE. PO SCH ×3 (08:49→20:10)
[2021-04-07] MEDS: LACTOBACILLUS RHAMNOSUS GG 1 CAPSULE. PO SCH ×2 (08:50→20:10)
[2021-04-07] MEDS: BENZTROPINE MESYLATE 1 MG TABLET PO SCH ×2 (08:50→20:09)
[2021-04-07] MEDS: POTASSIUM CHLORIDE 10 MEQ TABLET.ER. PO SCH (08:50)
[2021-04-07] MEDS: PANTOPRAZOLE 40 MG TABLET. PO SCH (08:50)
[2021-04-07] MEDS: DIVALPROEX ER 500 MG TAB.ER.24H PO SCH ×2 (08:50→20:09)
[2021-04-07] MEDS: ASPIRIN CHEWABLE 81 MG TABLET. PO SCH (08:50)
[2021-04-07] MEDS: FERROUS SULFATE 325 MG TABLET. PO SCH ×2 (08:50→20:10)
[2021-04-07] MEDS: TROLAMINE SALICYLATE 10% TOPICAL CREAM 85GM JAR. TP SCH ×3 (08:50→20:11)
[2021-04-07] MEDS: ASCORBIC ACID 500 MG TABLET PO SCH ×2 (08:50→20:07)
[2021-04-07] MEDS: LISINOPRIL 10 MG TABLET PO SCH (08:50)
[2021-04-07] MEDS: risperiDONE 2 MG TABLET. PO SCH ×2 (13:09→20:10)
[2021-04-07] MEDS: traMADol 50 MG TABLET PO PRN (13:15)
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
[2021-04-07 16:01] VITALS: BP 131/82
[2021-04-07] MEDS: cloZAPine 25 MG TABLET PO SCH (20:08)
[2021-04-07] MEDS: rOPINIRole 1 MG TABLET. PO SCH (20:10)
--- NOTE | 2021-04-07 22:06 | PDOC ---
Exam Note: Timothy Note: Please also refer to the separate dictated note~for this date of service dictated separately.~Patient seen individually. Discussed the patient with Nursing staff reviewed the chart.~Reviewed interim history and current functioning. Reviewed vital signs,~Labs/ Radiology~and current medications noted below. Continue current treatment with the changes noted in the dictated addendum note Assessment: Vital Signs/I&O: Vital Signs Date Time Temp Pulse Resp B/P (MAP) Pulse Ox O2 Delivery O2 Flow Rate FiO2 04/07/21 20:09 81 131/82 04/07/21 16:01 96.7 20 95 04/04/21 05:54 Room Air I & O 04/06/21 04/06/21 04/07/21 15:00 23:00 07:00 Intake Total 360 ml 660 ml Balance 360 ml 660 ml Current Medications: Meds: Current Medications Medications (Trade) Dose Ordered Sig/Arnold Route PRN Reason Start Time Stop Time Status Last Admin Dose Admin Acetaminophen (Tylenol) 650 mg PRN Q6HRS PRN PO MILD PAIN / TEMP > 100.3'F 03/14/21 20:45 03/17/21 15:50 Multi-Ingredient Ointment (Analgesic [place]) 1 shwetha PRN QID PRN TP MUSCLE PAIN 03/14/21 20:45 Al Hydroxide/Mg Hydroxide (Mylanta Plus Xs) 15 ml PRN AFTMEALHC PRN PO DYSPEPSIA 03/14/21 20:45 Magnesium Hydroxide (Milk Of Magnesia) 2,400 mg PRN QHS PRN PO CONSTIPATION 03/14/21 20:45 Acetaminophen (Tylenol) 650 mg TID PRN PO Back Pain 03/14/21 21:45 UNV Ascorbic Acid (Vitamin C) 500 mg BID PO 03/15/21 09:00 04/07/21 20:07 Aspirin (Aspirin Chewable) 81 mg DAILY PO 03/15/21 09:00 04/07/21 08:50 Atorvastatin Calcium (Lipitor) 20 mg DAILY PO 03/15/21 09:00 04/07/21 08:49 Carbidopa/Levodopa (Sinemet 10/100) 1 tab TID PO 03/14/21 23:00 03/23/21 13:44 DC 03/23/21 13:34 Vitamin D (Vitamin D3) 50,000 unit QWE PO 03/20/21 16:00 04/03/21 15:22 Ferrous Sulfate (Feosol) 325 mg BID PO 03/15/21 09:00 04/07/21 20:10 Furosemide (Lasix) 20 mg DAILY PO 03/15/21 09:00 04/02/21 15:34 DC 04/02/21 08:37 Gabapentin (Neurontin Oral Soln) 150 mg BID@1400,2200 PO 03/14/21 23:00 03/16/21 13:20 DC 03/14/21 23:14 Lisinopril (Prinivil) 10 mg DAILY PO 03/15/21 09:00 04/05/21 09:01 Metformin HCl (Glucophage) 500 mg BIDWMEALS PO 03/15/21 08:00 04/07/21 17:28 Metoprolol Tartrate (Lopressor) 12.5 mg BID PO 03/14/21 23:00 04/07/21 20:09 Tramadol HCl (Ultram) 50 mg PRN Q6HRS PRN PO MOD-SEV PAIN 03/14/21 21:45 04/07/21 13:15 Celecoxib (CeleBREX) 200 mg DAILY PO 03/15/21 09:00 04/07/21 08:49 Lactobacillus Rhamnosus (Culturelle) 1 cap BID PO 03/14/21 23:00 04/07/21 20:10 Pantoprazole Sodium (Protonix) 40 mg DAILY PO 03/15/21 09:00 04/07/21 08:50 Potassium Chloride (Klor-Con) 10 meq DAILY PO 03/15/21 09:00 04/07/21 08:50 Trolamine Salicylate (Myoplex) 1 shwetha TID TP 03/15/21 09:00 04/07/21 20:11 Benztropine Mesylate (Cogentin) 1 mg BID PO 03/14/21 23:00 04/07/21 20:09 Clonazepam (KlonoPIN) 2 mg BID PO 03/14/21 23:00 03/16/21 16:48 DC 03/16/21 09:00 Divalproex Sodium (Depakote Er) 1,000 mg BID PO 03/14/21 23:00 04/07/21 20:09 Fluphenazine HCl (Prolixin) 15 mg BID PO 03/14/21 23:00 04/07/21 20:07 Lorazepam (Ativan) 1 mg TID PO 03/14/21 23:00 03/16/21 18:45 DC 03/16/21 14:00 Risperidone (RisperDAL) 2 mg DAILY@1400 PO 03/15/21 14:00 04/07/21 13:09 Risperidone (RisperDAL) 4 mg QHS PO 03/14/21 23:00 04/07/21 20:10 Nicotine (Nicoderm Cq 21mg Patch) 1 patch DAILY TD 03/15/21 09:00 04/07/21 08:48 Gabapentin (Neurontin) 100 mg TID PO 03/16/21 14:00 04/07/21 20:10 Ropinirole HCl (Requip) 0.5 mg TID PO 03/16/21 21:00 04/05/21 17:12 DC 04/05/21 09:01 Clonazepam (KlonoPIN) 2 mg HS PO 03/16/21 21:00 03/19/21 21:01 DC 03/18/21 21:13 Clonazepam (KlonoPIN) 1.5 mg DAILY PO 03/17/21 09:00 03/23/21 08:00 DC 03/22/21 08:04 Clonazepam (KlonoPIN) 1 mg DAILY PO 03/23/21 09:00 03/26/21 15:27 DC 03/26/21 08:33 Clonazepam (KlonoPIN) 0.5 mg DAILY PO 03/29/21 09:00 03/26/21 15:27 DC Clonazepam (KlonoPIN) 1.5 mg HS PO 03/20/21 21:00 03/25/21 21:01 DC 03/25/21 19:56 Clonazepam (KlonoPIN) 1 mg QHS PO 03/26/21 21:00 03/26/21 15:27 DC Clonazepam (KlonoPIN) 0.5 mg HS PO 04/01/21 21:00 03/26/21 15:27 DC Lorazepam (Ativan) 1 mg BID PO 03/17/21 21:00 03/19/21 21:01 DC 03/19/21 08:13 Lorazepam (Ativan) 1 mg DAILY PO 03/20/21 09:00 03/22/21 08:59 DC 03/21/21 08:36 Clonazepam (KlonoPIN) 0.5 mg DAILY PO 03/27/21 09:00 03/28/21 21:00 DC 03/28/21 08:28 Clozapine (Clozaril) 25 mg HS PO 03/29/21 21:00 04/01/21 16:44 DC 03/31/21 20:26 Clozapine (Clozaril) 50 mg HS PO 04/01/21 21:00 04/07/21 20:08 Ropinirole HCl (Requip) 1 mg HS PO 04/05/21 21:00 04/07/21 20:10 I have reviewed the current psychotropics carefully including drug interactions. Risk benefit ratio favors no change other than as noted in my dictated progress note. Diagnosis: Problems: (1) Anxiety disorder (2) Impulse control disorder (3) Schizoaffective disorder, chronic condition with acute exacerbation BESSIE SOLORIO MD Apr 07, 2021 22:06
--- NOTE | 2021-04-07 22:59 | NUR ---
Patient is in the hallway on assumption of care, self propelling down the hallway. She is labile, suspicious, and delusional. She continues to believe that her medications are poisoning her, but she did comply with taking them from this nurse. 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 Appears to be sleeping comfortably at present time. Will continue to monitor.
[2021-04-08 05:59] VITALS: BP 132/79
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
[2021-04-08 07:07] LABS: BASO % 0 % (0-3); EOS # 0.2 x10^3/uL (0.0-0.7); EOS % 1 % (0-3); HEMOGLOBIN 10.8 g/dL (12.0-15.5); LYMPH # 2.9 x10^3/uL (1.0-4.8); LYMPH % 18 % (24-48); MEAN CORPUSCULAR HEMOGLOBIN 31 pg (25-35); MEAN CORPUSCULAR HGB CONC 34 g/dL (31-37); MEAN CORPUSCULAR VOLUME 90 fL (79-100); MONO # 1.6 x10^3/uL (0.0-1.1); MONO % 10 % (0-9); NEUT # 11.3 x10^3uL (1.8-7.7); NEUT % 70 % (31-73); PLATELET COUNT 237 x10^3/uL (140-400); RED BLOOD COUNT 3.55 x10^6/uL (3.50-5.40); RED CELL DISTRIBUTION WIDTH 14.5 % (11.5-14.5); WHITE BLOOD COUNT 16.1 x10^3/uL (4.0-11.0)
[2021-04-08 07:24] LABS: ALBUMIN 2.8 g/dL (3.4-5.0); ALBUMIN/GLOBULIN RATIO 0.8 (1.0-1.7); CALCIUM 8.8 mg/dL (8.5-10.1); CREATININE 0.6 mg/dL (0.6-1.0); GFR 103.4; POTASSIUM 4.5 mmol/L (3.5-5.1); TOTAL BILIRUBIN 0.2 mg/dL (0.2-1.0); TOTAL PROTEIN 6.3 g/dL (6.4-8.2)
[2021-04-08] MEDS: ASCORBIC ACID 500 MG TABLET PO SCH ×2 (08:10→20:29)
[2021-04-08] MEDS: ASPIRIN CHEWABLE 81 MG TABLET. PO SCH (08:11)
[2021-04-08] MEDS: DIVALPROEX ER 500 MG TAB.ER.24H PO SCH ×2 (08:11→20:30)
[2021-04-08] MEDS: LACTOBACILLUS RHAMNOSUS GG 1 CAPSULE. PO SCH ×2 (08:11→20:30)
[2021-04-08] MEDS: POTASSIUM CHLORIDE 10 MEQ TABLET.ER. PO SCH (08:11)
[2021-04-08] MEDS: PANTOPRAZOLE 40 MG TABLET. PO SCH (08:11)
[2021-04-08] MEDS: metFORMIN 500 MG TABLET PO SCH ×2 (08:12→17:15)
[2021-04-08] MEDS: ATORVASTATIN CALCIUM 20 MG TABLET PO SCH (08:12)
[2021-04-08] MEDS: LISINOPRIL 10 MG TABLET PO SCH (08:12)
[2021-04-08] MEDS: BENZTROPINE MESYLATE 1 MG TABLET PO SCH ×2 (08:12→20:29)
[2021-04-08] MEDS: FERROUS SULFATE 325 MG TABLET. PO SCH ×2 (08:12→20:31)
[2021-04-08] MEDS: METOPROLOL TART IMMED RELEASE 25 MG TABLET. PO SCH ×2 (08:12→20:27)
[2021-04-08] MEDS: GABAPENTIN 100 MG CAPSULE. PO SCH ×3 (08:12→20:31)
[2021-04-08] MEDS: CELECOXIB 100 MG CAPSULE PO SCH (08:12)
[2021-04-08] MEDS: NICOTINE 21MG PATCH. TD SCH (08:15)
[2021-04-08] MEDS: TROLAMINE SALICYLATE 10% TOPICAL CREAM 85GM JAR. TP SCH ×3 (08:17→20:31)
[2021-04-08] MEDS: risperiDONE 2 MG TABLET. PO SCH ×2 (13:59→20:30)
--- NOTE | 2021-04-08 14:28 | NUR ---
Nursing note: Patient in dinning room at time of AM med pass and assessment, medication taken whole. She did not refuse any medications, she reported her medications make her hallucinate & they will kill her because she takes too many. She is very suspicious about her pills. She is oriented times 3. Patient denies pain or discomfort at this time. She self propels in wheel chair and can transfer without assistance but refuses to when it is time for her to go to the bathroom requiring standby assist. She is currently sitting in the day room. Will continue to monitor.
[2021-04-08 15:42] VITALS: BP 95/67
[2021-04-08] MEDS: cloZAPine 25 MG TABLET PO SCH (20:29)
[2021-04-08] MEDS: rOPINIRole 1 MG TABLET. PO SCH (20:31)
--- NOTE | 2021-04-08 21:58 | NUR ---
Nursing Note The patient was located in the hallway near the nurses station and in her room for her assessment and medication pass. The patient was compliant with her medication and took them whole. The patient was cooperative with her assessment and was able to answer name and location. The patient discussed what she would like to do when she discharges. The patient reports that she is happy that she will be going back to the facility she was at prior to coming here. The patient is currently sleeping in her room.
--- NOTE | 2021-04-08 22:03 | PDOC ---
Exam Note: Timothy Note: Please also refer to the separate dictated note~for this date of service dictated separately.~Patient seen individually. Discussed the patient with Nursing staff reviewed the chart.~Reviewed interim history and current functioning. Reviewed vital signs,~Labs/ Radiology~and current medications noted below. Continue current treatment with the changes noted in the dictated addendum note Assessment: Vital Signs/I&O: Vital Signs Date Time Temp Pulse Resp B/P (MAP) Pulse Ox O2 Delivery O2 Flow Rate FiO2 04/08/21 20:27 84 118/85 04/08/21 15:42 98.7 18 98 04/04/21 05:54 Room Air I & O 04/07/21 04/07/21 04/08/21 15:00 23:00 07:00 Intake Total 960 ml 480 ml Balance 960 ml 480 ml Labs: Laboratory Tests Test 04/08/21 06:17 White Blood Count 16.1 x10^3/uL (4.0-11.0) H Red Blood Count 3.55 x10^6/uL (3.50-5.40) Hemoglobin 10.8 g/dL (12.0-15.5) L Hematocrit 32.0 % (36.0-47.0) L Mean Corpuscular Volume 90 fL (79-100) Mean Corpuscular Hemoglobin 31 pg (25-35) Mean Corpuscular Hemoglobin Concent 34 g/dL (31-37) Red Cell Distribution Width 14.5 % (11.5-14.5) Platelet Count 237 x10^3/uL (140-400) Neutrophils (%) (Auto) 70 % (31-73) Lymphocytes (%) (Auto) 18 % (24-48) L Monocytes (%) (Auto) 10 % (0-9) H Eosinophils (%) (Auto) 1 % (0-3) Basophils (%) (Auto) 0 % (0-3) Neutrophils # (Auto) 11.3 x10^3uL (1.8-7.7) H Lymphocytes # (Auto) 2.9 x10^3/uL (1.0-4.8) Monocytes # (Auto) 1.6 x10^3/uL (0.0-1.1) H Eosinophils # (Auto) 0.2 x10^3/uL (0.0-0.7) Basophils # (Auto) 0.0 x10^3/uL (0.0-0.2) Sodium Level 126 mmol/L (136-145) L Potassium Level 4.5 mmol/L (3.5-5.1) Chloride Level 89 mmol/L (98-107) L Carbon Dioxide Level 27 mmol/L (21-32) Anion Gap 10 (6-14) Blood Urea Nitrogen 11 mg/dL (7-20) Creatinine 0.6 mg/dL (0.6-1.0) Estimated GFR (Cockcroft-Gault) 103.4 BUN/Creatinine Ratio 18 (6-20) Glucose Level 90 mg/dL (70-99) Calcium Level 8.8 mg/dL (8.5-10.1) Total Bilirubin 0.2 mg/dL (0.2-1.0) Aspartate Amino Transferase (AST) 10 U/L (15-37) L Alanine Aminotransferase (ALT) 12 U/L (14-59) L Alkaline Phosphatase 79 U/L (46-116) Total Protein 6.3 g/dL (6.4-8.2) L Albumin 2.8 g/dL (3.4-5.0) L Albumin/Globulin Ratio 0.8 (1.0-1.7) L Current Medications: Meds: Laboratory Tests Test 04/08/21 06:17 White Blood Count 16.1 x10^3/uL Red Blood Count 3.55 x10^6/uL Hemoglobin 10.8 g/dL Hematocrit 32.0 % Mean Corpuscular Volume 90 fL Mean Corpuscular Hemoglobin 31 pg Mean Corpuscular Hemoglobin Concent 34 g/dL Red Cell Distribution Width 14.5 % Platelet Count 237 x10^3/uL Neutrophils (%) (Auto) 70 % Lymphocytes (%) (Auto) 18 % Monocytes (%) (Auto) 10 % Eosinophils (%) (Auto) 1 % Basophils (%) (Auto) 0 % Neutrophils # (Auto) 11.3 x10^3uL Lymphocytes # (Auto) 2.9 x10^3/uL Monocytes # (Auto) 1.6 x10^3/uL Eosinophils # (Auto) 0.2 x10^3/uL Basophils # (Auto) 0.0 x10^3/uL Sodium Level 126 mmol/L Potassium Level 4.5 mmol/L Chloride Level 89 mmol/L Carbon Dioxide Level 27 mmol/L Anion Gap 10 Blood Urea Nitrogen 11 mg/dL Creatinine 0.6 mg/dL Estimated GFR (Cockcroft-Gault) 103.4 BUN/Creatinine Ratio 18 Glucose Level 90 mg/dL Calcium Level 8.8 mg/dL Total Bilirubin 0.2 mg/dL Aspartate Amino Transf (AST/SGOT) 10 U/L Alanine Aminotransferase (ALT/SGPT) 12 U/L Alkaline Phosphatase 79 U/L Total Protein 6.3 g/dL Albumin 2.8 g/dL Albumin/Globulin Ratio 0.8 Current Medications Medications (Trade) Dose Ordered Sig/Arnold Route PRN Reason Start Time Stop Time Status Last Admin Dose Admin Acetaminophen (Tylenol) 650 mg PRN Q6HRS PRN PO MILD PAIN / TEMP > 100.3'F 03/14/21 20:45 03/17/21 15:50 Multi-Ingredient Ointment (Analgesic [place]) 1 shwetha PRN QID PRN TP MUSCLE PAIN 03/14/21 20:45 Al Hydroxide/Mg Hydroxide (Mylanta Plus Xs) 15 ml PRN AFTMEALHC PRN PO DYSPEPSIA 03/14/21 20:45 Magnesium Hydroxide (Milk Of Magnesia) 2,400 mg PRN QHS PRN PO CONSTIPATION 03/14/21 20:45 Acetaminophen (Tylenol) 650 mg TID PRN PO Back Pain 03/14/21 21:45 UNV Ascorbic Acid (Vitamin C) 500 mg BID PO 03/15/21 09:00 04/08/21 20:29 Aspirin (Aspirin Chewable) 81 mg DAILY PO 03/15/21 09:00 04/08/21 08:11 Atorvastatin Calcium (Lipitor) 20 mg DAILY PO 03/15/21 09:00 04/08/21 08:12 Carbidopa/Levodopa (Sinemet 10/100) 1 tab TID PO 03/14/21 23:00 03/23/21 13:44 DC 03/23/21 13:34 Vitamin D (Vitamin D3) 50,000 unit QWE PO 03/20/21 16:00 04/03/21 15:22 Ferrous Sulfate (Feosol) 325 mg BID PO 03/15/21 09:00 04/08/21 20:31 Furosemide (Lasix) 20 mg DAILY PO 03/15/21 09:00 04/02/21 15:34 DC 04/02/21 08:37 Gabapentin (Neurontin Oral Soln) 150 mg BID@1400,2200 PO 03/14/21 23:00 03/16/21 13:20 DC 03/14/21 23:14 Lisinopril (Prinivil) 10 mg DAILY PO 03/15/21 09:00 04/08/21 08:12 Metformin HCl (Glucophage) 500 mg BIDWMEALS PO 03/15/21 08:00 04/08/21 17:15 Metoprolol Tartrate (Lopressor) 12.5 mg BID PO 03/14/21 23:00 04/08/21 20:27 Tramadol HCl (Ultram) 50 mg PRN Q6HRS PRN PO MOD-SEV PAIN 03/14/21 21:45 04/07/21 13:15 Celecoxib (CeleBREX) 200 mg DAILY PO 03/15/21 09:00 04/08/21 08:12 Lactobacillus Rhamnosus (Culturelle) 1 cap BID PO 03/14/21 23:00 04/08/21 20:30 Pantoprazole Sodium (Protonix) 40 mg DAILY PO 03/15/21 09:00 04/08/21 08:11 Potassium Chloride (Klor-Con) 10 meq DAILY PO 03/15/21 09:00 04/08/21 08:11 Trolamine Salicylate (Myoplex) 1 shwetha TID TP 03/15/21 09:00 04/08/21 20:31 Benztropine Mesylate (Cogentin) 1 mg BID PO 03/14/21 23:00 04/08/21 20:29 Clonazepam (KlonoPIN) 2 mg BID PO 03/14/21 23:00 03/16/21 16:48 DC 03/16/21 09:00 Divalproex Sodium (Depakote Er) 1,000 mg BID PO 03/14/21 23:00 04/08/21 20:30 Fluphenazine HCl (Prolixin) 15 mg BID PO 03/14/21 23:00 04/08/21 20:28 Lorazepam (Ativan) 1 mg TID PO 03/14/21 23:00 03/16/21 18:45 DC 03/16/21 14:00 Risperidone (RisperDAL) 2 mg DAILY@1400 PO 03/15/21 14:00 04/08/21 13:59 Risperidone (RisperDAL) 4 mg QHS PO 03/14/21 23:00 04/08/21 20:30 Nicotine (Nicoderm Cq 21mg Patch) 1 patch DAILY TD 03/15/21 09:00 04/08/21 08:15 Gabapentin (Neurontin) 100 mg TID PO 03/16/21 14:00 04/08/21 20:31 Ropinirole HCl (Requip) 0.5 mg TID PO 03/16/21 21:00 04/05/21 17:12 DC 04/05/21 09:01 Clonazepam (KlonoPIN) 2 mg HS PO 03/16/21 21:00 03/19/21 21:01 DC 03/18/21 21:13 Clonazepam (KlonoPIN) 1.5 mg DAILY PO 03/17/21 09:00 03/23/21 08:00 DC 03/22/21 08:04 Clonazepam (KlonoPIN) 1 mg DAILY PO 03/23/21 09:00 03/26/21 15:27 DC 03/26/21 08:33 Clonazepam (KlonoPIN) 0.5 mg DAILY PO 03/29/21 09:00 03/26/21 15:27 DC Clonazepam (KlonoPIN) 1.5 mg HS PO 03/20/21 21:00 03/25/21 21:01 DC 03/25/21 19:56 Clonazepam (KlonoPIN) 1 mg QHS PO 03/26/21 21:00 03/26/21 15:27 DC Clonazepam (KlonoPIN) 0.5 mg HS PO 04/01/21 21:00 03/26/21 15:27 DC Lorazepam (Ativan) 1 mg BID PO 03/17/21 21:00 03/19/21 21:01 DC 03/19/21 08:13 Lorazepam (Ativan) 1 mg DAILY PO 03/20/21 09:00 03/22/21 08:59 DC 03/21/21 08:36 Clonazepam (KlonoPIN) 0.5 mg DAILY PO 03/27/21 09:00 03/28/21 21:00 DC 03/28/21 08:28 Clozapine (Clozaril) 25 mg HS PO 03/29/21 21:00 04/01/21 16:44 DC 03/31/21 20:26 Clozapine (Clozaril) 50 mg HS PO 04/01/21 21:00 04/08/21 16:58 DC 04/07/21 20:08 Ropinirole HCl (Requip) 1 mg HS PO 04/05/21 21:00 04/08/21 20:31 Clozapine (Clozaril) 75 mg HS PO 04/08/21 21:00 04/08/21 20:29 Current Medications Medications (Trade) Dose Ordered Sig/Arnold Route PRN Reason Start Time Stop Time Status Last Admin Dose Admin Clozapine (Clozaril) 75 mg HS PO 04/08/21 21:00 04/08/21 20:29 I have reviewed the current psychotropics carefully including drug interactions. Risk benefit ratio favors no change other than as noted in my dictated progress note. Diagnosis: Problems: (1) Anxiety disorder (2) Impulse control disorder (3) Schizoaffective disorder, chronic condition with acute exacerbation BESSIE SOLORIO MD Apr 08, 2021 22:03
--- NOTE | 2021-04-09 07:07 | PDOC ---
Exam Note: Timothy Note: This note is a late entry for 04/08/2021 covers elements not covered in my initial note. Subjective: The patient was seen individually in the evening of 04/08/2021 with Alfreda DORAN, discussed and reviewed the chart. She slept 6-1/2 hours previous night. The patient took all her medications today but making statements that medications will kill her. Absolute neutrophil count is unremarkable per the pharmacy staff and we will increase Clozaril from 50 mg h.s. to 75 mg h.s. Review of Systems: Ambulation impaired in wheelchair. No CV, , pulmonary, eye, ENT system symptoms on review. Mental Status Exam: The patient is oriented to herself and situation. Speech coherent, has some latency. Abstraction fair. Computation impaired. Language function intact. Mood and affect somewhat labile. Laboratory Data: Reviewed. Impression: Schizoaffective disorder bipolar type, mixed with psychotic features. Anxiety disorder unspecified. Impulse control disorder unspecified. Plan: No change from initial note. Absolute neutrophil count is unremarkable per the pharmacy staff and we will increase Clozaril from 50 mg h.s. to 75 mg h.s. At some point as the Clozaril is increased we will start reducing the oral Prolixin which is currently 15 mg b.i.d. Assessment: Vital Signs/I&O: Vital Signs Date Time Temp Pulse Resp B/P (MAP) Pulse Ox O2 Delivery O2 Flow Rate FiO2 04/08/21 20:27 84 118/85 04/08/21 15:42 98.7 18 98 04/04/21 05:54 Room Air I & O 04/08/21 04/08/21 04/09/21 15:00 23:00 07:00 Intake Total 840 ml 600 ml Balance 840 ml 600 ml Current Medications: Meds: Current Medications Medications (Trade) Dose Ordered Sig/Arnold Route PRN Reason Start Time Stop Time Status Last Admin Dose Admin Acetaminophen (Tylenol) 650 mg PRN Q6HRS PRN PO MILD PAIN / TEMP > 100.3'F 03/14/21 20:45 03/17/21 15:50 Multi-Ingredient Ointment (Analgesic [place]) 1 shwetha PRN QID PRN TP MUSCLE PAIN 03/14/21 20:45 Al Hydroxide/Mg Hydroxide (Mylanta Plus Xs) 15 ml PRN AFTMEALHC PRN PO DYSPEPSIA 03/14/21 20:45 Magnesium Hydroxide (Milk Of Magnesia) 2,400 mg PRN QHS PRN PO CONSTIPATION 03/14/21 20:45 Acetaminophen (Tylenol) 650 mg TID PRN PO Back Pain 03/14/21 21:45 UNV Ascorbic Acid (Vitamin C) 500 mg BID PO 03/15/21 09:00 04/08/21 20:29 Aspirin (Aspirin Chewable) 81 mg DAILY PO 03/15/21 09:00 04/08/21 08:11 Atorvastatin Calcium (Lipitor) 20 mg DAILY PO 03/15/21 09:00 04/08/21 08:12 Carbidopa/Levodopa (Sinemet 10/100) 1 tab TID PO 03/14/21 23:00 03/23/21 13:44 DC 03/23/21 13:34 Vitamin D (Vitamin D3) 50,000 unit QWE PO 03/20/21 16:00 04/03/21 15:22 Ferrous Sulfate (Feosol) 325 mg BID PO 03/15/21 09:00 04/08/21 20:31 Furosemide (Lasix) 20 mg DAILY PO 03/15/21 09:00 04/02/21 15:34 DC 04/02/21 08:37 Gabapentin (Neurontin Oral Soln) 150 mg BID@1400,2200 PO 03/14/21 23:00 03/16/21 13:20 DC 03/14/21 23:14 Lisinopril (Prinivil) 10 mg DAILY PO 03/15/21 09:00 04/08/21 08:12 Metformin HCl (Glucophage) 500 mg BIDWMEALS PO 03/15/21 08:00 04/08/21 17:15 Metoprolol Tartrate (Lopressor) 12.5 mg BID PO 03/14/21 23:00 04/08/21 20:27 Tramadol HCl (Ultram) 50 mg PRN Q6HRS PRN PO MOD-SEV PAIN 03/14/21 21:45 04/07/21 13:15 Celecoxib (CeleBREX) 200 mg DAILY PO 03/15/21 09:00 04/08/21 08:12 Lactobacillus Rhamnosus (Culturelle) 1 cap BID PO 03/14/21 23:00 04/08/21 20:30 Pantoprazole Sodium (Protonix) 40 mg DAILY PO 03/15/21 09:00 04/08/21 08:11 Potassium Chloride (Klor-Con) 10 meq DAILY PO 03/15/21 09:00 04/08/21 08:11 Trolamine Salicylate (Myoplex) 1 shwetha TID TP 03/15/21 09:00 04/08/21 20:31 Benztropine Mesylate (Cogentin) 1 mg BID PO 03/14/21 23:00 04/08/21 20:29 Clonazepam (KlonoPIN) 2 mg BID PO 03/14/21 23:00 03/16/21 16:48 DC 03/16/21 09:00 Divalproex Sodium (Depakote Er) 1,000 mg BID PO 03/14/21 23:00 04/08/21 20:30 Fluphenazine HCl (Prolixin) 15 mg BID PO 03/14/21 23:00 04/08/21 20:28 Lorazepam (Ativan) 1 mg TID PO 03/14/21 23:00 03/16/21 18:45 DC 03/16/21 14:00 Risperidone (RisperDAL) 2 mg DAILY@1400 PO 03/15/21 14:00 04/08/21 13:59 Risperidone (RisperDAL) 4 mg QHS PO 03/14/21 23:00 04/08/21 20:30 Nicotine (Nicoderm Cq 21mg Patch) 1 patch DAILY TD 03/15/21 09:00 04/08/21 08:15 Gabapentin (Neurontin) 100 mg TID PO 03/16/21 14:00 04/08/21 20:31 Ropinirole HCl (Requip) 0.5 mg TID PO 03/16/21 21:00 04/05/21 17:12 DC 04/05/21 09:01 Clonazepam (KlonoPIN) 2 mg HS PO 03/16/21 21:00 03/19/21 21:01 DC 03/18/21 21:13 Clonazepam (KlonoPIN) 1.5 mg DAILY PO 03/17/21 09:00 03/23/21 08:00 DC 03/22/21 08:04 Clonazepam (KlonoPIN) 1 mg DAILY PO 03/23/21 09:00 03/26/21 15:27 DC 03/26/21 08:33 Clonazepam (KlonoPIN) 0.5 mg DAILY PO 03/29/21 09:00 03/26/21 15:27 DC Clonazepam (KlonoPIN) 1.5 mg HS PO 03/20/21 21:00 03/25/21 21:01 DC 03/25/21 19:56 Clonazepam (KlonoPIN) 1 mg QHS PO 03/26/21 21:00 03/26/21 15:27 DC Clonazepam (KlonoPIN) 0.5 mg HS PO 04/01/21 21:00 03/26/21 15:27 DC Lorazepam (Ativan) 1 mg BID PO 03/17/21 21:00 03/19/21 21:01 DC 03/19/21 08:13 Lorazepam (Ativan) 1 mg DAILY PO 03/20/21 09:00 03/22/21 08:59 DC 03/21/21 08:36 Clonazepam (KlonoPIN) 0.5 mg DAILY PO 03/27/21 09:00 03/28/21 21:00 DC 03/28/21 08:28 Clozapine (Clozaril) 25 mg HS PO 03/29/21 21:00 04/01/21 16:44 DC 03/31/21 20:26 Clozapine (Clozaril) 50 mg HS PO 04/01/21 21:00 04/08/21 16:58 DC 04/07/21 20:08 Ropinirole HCl (Requip) 1 mg HS PO 04/05/21 21:00 04/08/21 20:31 Clozapine (Clozaril) 75 mg HS PO 04/08/21 21:00 04/08/21 20:29 Current Medications Medications (Trade) Dose Ordered Sig/Arnold Route PRN Reason Start Time Stop Time Status Last Admin Dose Admin Clozapine (Clozaril) 75 mg HS PO 04/08/21 21:00 04/08/21 20:29 I have reviewed the current psychotropics carefully including drug interactions. Risk benefit ratio favors no change other than as noted in my dictated progress note. Diagnosis: Problems: (1) Anxiety disorder (2) Impulse control disorder (3) Schizoaffective disorder, chronic condition with acute exacerbation BESSIE SOLORIO MD Apr 09, 2021 07:07
[2021-04-09] MEDS: metFORMIN 500 MG TABLET PO SCH ×2 (08:55→17:03)
[2021-04-09] MEDS: FERROUS SULFATE 325 MG TABLET. PO SCH ×2 (08:55→20:26)
[2021-04-09] MEDS: ATORVASTATIN CALCIUM 20 MG TABLET PO SCH (08:56)
[2021-04-09] MEDS: POTASSIUM CHLORIDE 10 MEQ TABLET.ER. PO SCH (08:56)
[2021-04-09] MEDS: LISINOPRIL 10 MG TABLET PO SCH (08:56)
[2021-04-09] MEDS: BENZTROPINE MESYLATE 1 MG TABLET PO SCH ×2 (08:56→20:24)
[2021-04-09] MEDS: LACTOBACILLUS RHAMNOSUS GG 1 CAPSULE. PO SCH ×2 (08:56→20:24)
[2021-04-09] MEDS: DIVALPROEX ER 500 MG TAB.ER.24H PO SCH ×2 (08:56→20:24)
[2021-04-09] MEDS: ASCORBIC ACID 500 MG TABLET PO SCH ×2 (08:56→20:25)
[2021-04-09] MEDS: CELECOXIB 100 MG CAPSULE PO SCH (08:56)
[2021-04-09] MEDS: ASPIRIN CHEWABLE 81 MG TABLET. PO SCH (08:56)
[2021-04-09] MEDS: GABAPENTIN 100 MG CAPSULE. PO SCH ×3 (08:56→20:25)
[2021-04-09] MEDS: METOPROLOL TART IMMED RELEASE 25 MG TABLET. PO SCH ×2 (08:57→20:25)
[2021-04-09] MEDS: TROLAMINE SALICYLATE 10% TOPICAL CREAM 85GM JAR. TP SCH ×3 (09:00→20:26)
[2021-04-09] MEDS: PANTOPRAZOLE 40 MG TABLET. PO SCH (09:00)
[2021-04-09] MEDS: NICOTINE 21MG PATCH. TD SCH (09:05)
[2021-04-09 09:15] VITALS: BP 120/75
[2021-04-09] MEDS: risperiDONE 2 MG TABLET. PO SCH ×2 (13:36→20:26)
--- NOTE | 2021-04-09 14:54 | NUR ---
Nursing note: Patient in bed room at time of AM med pass and assessment, medication taken whole. She did not refuse any medications, she reported her medications make her hallucinate & they will kill her because she takes too many. She is very suspicious about her pills. She is oriented times 3. Patient denies pain or discomfort at this time. She self propels in wheel chair and can transfer without assistance but refuses to when it is time for her to go to the bathroom requiring standby assist. She is currently laying in her bed in her room. Will continue to monitor.
[2021-04-09 16:03] VITALS: BP 124/72
[2021-04-09] MEDS: traMADol 50 MG TABLET PO PRN (17:18)
[2021-04-09] MEDS: cloZAPine 25 MG TABLET PO SCH (20:24)
[2021-04-09] MEDS: rOPINIRole 1 MG TABLET. PO SCH (20:25)
--- NOTE | 2021-04-09 22:02 | PDOC ---
Exam Note: Timothy Note: Please also refer to the separate dictated note~for this date of service dictated separately.~Patient seen individually. Discussed the patient with Nursing staff reviewed the chart.~Reviewed interim history and current functioning. Reviewed vital signs,~Labs/ Radiology~and current medications noted below. Continue current treatment with the changes noted in the dictated addendum note Assessment: Vital Signs/I&O: Vital Signs Date Time Temp Pulse Resp B/P (MAP) Pulse Ox O2 Delivery O2 Flow Rate FiO2 04/09/21 20:25 64 124/72 04/09/21 17:48 98 04/09/21 16:03 98.5 20 04/04/21 05:54 Room Air I & O 04/08/21 04/08/21 04/09/21 15:00 23:00 07:00 Intake Total 840 ml 600 ml Balance 840 ml 600 ml Current Medications: Meds: Current Medications Medications (Trade) Dose Ordered Sig/Arnold Route PRN Reason Start Time Stop Time Status Last Admin Dose Admin Acetaminophen (Tylenol) 650 mg PRN Q6HRS PRN PO MILD PAIN / TEMP > 100.3'F 03/14/21 20:45 03/17/21 15:50 Multi-Ingredient Ointment (Analgesic [place]) 1 shwetha PRN QID PRN TP MUSCLE PAIN 03/14/21 20:45 Al Hydroxide/Mg Hydroxide (Mylanta Plus Xs) 15 ml PRN AFTMEALHC PRN PO DYSPEPSIA 03/14/21 20:45 Magnesium Hydroxide (Milk Of Magnesia) 2,400 mg PRN QHS PRN PO CONSTIPATION 03/14/21 20:45 Acetaminophen (Tylenol) 650 mg TID PRN PO Back Pain 03/14/21 21:45 UNV Ascorbic Acid (Vitamin C) 500 mg BID PO 03/15/21 09:00 04/09/21 20:25 Aspirin (Aspirin Chewable) 81 mg DAILY PO 03/15/21 09:00 04/09/21 08:56 Atorvastatin Calcium (Lipitor) 20 mg DAILY PO 03/15/21 09:00 04/09/21 08:56 Carbidopa/Levodopa (Sinemet 10/100) 1 tab TID PO 03/14/21 23:00 03/23/21 13:44 DC 03/23/21 13:34 Vitamin D (Vitamin D3) 50,000 unit QWE PO 03/20/21 16:00 04/03/21 15:22 Ferrous Sulfate (Feosol) 325 mg BID PO 03/15/21 09:00 04/09/21 20:26 Furosemide (Lasix) 20 mg DAILY PO 03/15/21 09:00 04/02/21 15:34 DC 04/02/21 08:37 Gabapentin (Neurontin Oral Soln) 150 mg BID@1400,2200 PO 03/14/21 23:00 03/16/21 13:20 DC 03/14/21 23:14 Lisinopril (Prinivil) 10 mg DAILY PO 03/15/21 09:00 04/09/21 08:56 Metformin HCl (Glucophage) 500 mg BIDWMEALS PO 03/15/21 08:00 04/09/21 17:03 Metoprolol Tartrate (Lopressor) 12.5 mg BID PO 03/14/21 23:00 04/09/21 20:25 Tramadol HCl (Ultram) 50 mg PRN Q6HRS PRN PO MOD-SEV PAIN 03/14/21 21:45 04/09/21 17:18 Celecoxib (CeleBREX) 200 mg DAILY PO 03/15/21 09:00 04/09/21 08:56 Lactobacillus Rhamnosus (Culturelle) 1 cap BID PO 03/14/21 23:00 04/09/21 20:24 Pantoprazole Sodium (Protonix) 40 mg DAILY PO 03/15/21 09:00 04/09/21 09:00 Potassium Chloride (Klor-Con) 10 meq DAILY PO 03/15/21 09:00 04/09/21 08:56 Trolamine Salicylate (Myoplex) 1 shwetha TID TP 03/15/21 09:00 04/09/21 20:26 Benztropine Mesylate (Cogentin) 1 mg BID PO 03/14/21 23:00 04/09/21 20:24 Clonazepam (KlonoPIN) 2 mg BID PO 03/14/21 23:00 03/16/21 16:48 DC 03/16/21 09:00 Divalproex Sodium (Depakote Er) 1,000 mg BID PO 03/14/21 23:00 04/09/21 20:24 Fluphenazine HCl (Prolixin) 15 mg BID PO 03/14/21 23:00 04/09/21 20:26 Lorazepam (Ativan) 1 mg TID PO 03/14/21 23:00 03/16/21 18:45 DC 03/16/21 14:00 Risperidone (RisperDAL) 2 mg DAILY@1400 PO 03/15/21 14:00 04/09/21 13:36 Risperidone (RisperDAL) 4 mg QHS PO 03/14/21 23:00 04/09/21 20:26 Nicotine (Nicoderm Cq 21mg Patch) 1 patch DAILY TD 03/15/21 09:00 04/09/21 09:05 Gabapentin (Neurontin) 100 mg TID PO 03/16/21 14:00 04/09/21 20:25 Ropinirole HCl (Requip) 0.5 mg TID PO 03/16/21 21:00 04/05/21 17:12 DC 04/05/21 09:01 Clonazepam (KlonoPIN) 2 mg HS PO 03/16/21 21:00 03/19/21 21:01 DC 03/18/21 21:13 Clonazepam (KlonoPIN) 1.5 mg DAILY PO 03/17/21 09:00 03/23/21 08:00 DC 03/22/21 08:04 Clonazepam (KlonoPIN) 1 mg DAILY PO 03/23/21 09:00 03/26/21 15:27 DC 03/26/21 08:33 Clonazepam (KlonoPIN) 0.5 mg DAILY PO 03/29/21 09:00 03/26/21 15:27 DC Clonazepam (KlonoPIN) 1.5 mg HS PO 03/20/21 21:00 03/25/21 21:01 DC 03/25/21 19:56 Clonazepam (KlonoPIN) 1 mg QHS PO 03/26/21 21:00 03/26/21 15:27 DC Clonazepam (KlonoPIN) 0.5 mg HS PO 04/01/21 21:00 03/26/21 15:27 DC Lorazepam (Ativan) 1 mg BID PO 03/17/21 21:00 03/19/21 21:01 DC 03/19/21 08:13 Lorazepam (Ativan) 1 mg DAILY PO 03/20/21 09:00 03/22/21 08:59 DC 03/21/21 08:36 Clonazepam (KlonoPIN) 0.5 mg DAILY PO 03/27/21 09:00 03/28/21 21:00 DC 03/28/21 08:28 Clozapine (Clozaril) 25 mg HS PO 03/29/21 21:00 04/01/21 16:44 DC 03/31/21 20:26 Clozapine (Clozaril) 50 mg HS PO 04/01/21 21:00 04/08/21 16:58 DC 04/07/21 20:08 Ropinirole HCl (Requip) 1 mg HS PO 04/05/21 21:00 04/09/21 20:25 Clozapine (Clozaril) 75 mg HS PO 04/08/21 21:00 04/09/21 20:24 I have reviewed the current psychotropics carefully including drug interactions. Risk benefit ratio favors no change other than as noted in my dictated progress note. Diagnosis: Problems: (1) Anxiety disorder (2) Impulse control disorder (3) Schizoaffective disorder, chronic condition with acute exacerbation BESSIE SOLORIO MD Apr 09, 2021 22:02
--- NOTE | 2021-04-10 03:13 | NUR ---
Nursing Note The patient was located in her room for her assessment and medication pass. The patient was pleasant during interactions with this nurse and was alert to name and location. The patient took her medication whole. The patient told this nurse about her history during her interview. The patient is currently sleeping in her room.
[2021-04-10 06:19] VITALS: BP 145/84
--- NOTE | 2021-04-10 06:57 | PDOC ---
Exam Note: Timothy Note: This note is a late entry for 04/09/2021 covers elements not covered in my initial note. Subjective: The patient was seen individually in the evening of 04/09/2021 with Alfreda DORAN, discussed and reviewed the chart. She slept 7-3/4 hours previous night. I met with her at length in her room. She has been resistive to medications but later took all of them. She does complain of ongoing pain. Received tramadol at 5.20 p.m. Review of Systems: Ambulation impaired in wheelchair. She has been delusional, talking about her legs breaking and bones sticking out of her skin. No CV, , pulmonary, eye, ENT system symptoms on review. Mental Status Exam: The patient is oriented to herself and situation. Speech coherent at times pressured. Abstraction fair. Computation impaired. Language function intact, still somewhat paranoid as above. Mood and affect somewhat labile. No suicidal or homicidal ideation. Laboratory Data: Reviewed. Impression: Schizoaffective disorder bipolar type, mixed with psychotic features. Anxiety disorder unspecified. Impulse control disorder unspecified. Plan: No change from initial note. Continue to gradually increase the Clozaril and Depakote continue unchanged, level therapeutic at 84. Assessment: Vital Signs/I&O: Vital Signs Date Time Temp Pulse Resp B/P (MAP) Pulse Ox O2 Delivery O2 Flow Rate FiO2 04/10/21 06:19 95.7 67 18 145/84 (104) 91 I & O 04/09/21 04/09/21 04/10/21 15:00 23:00 07:00 Intake Total 840 ml 600 ml Balance 840 ml 600 ml Current Medications: Meds: Current Medications Medications (Trade) Dose Ordered Sig/Arnold Route PRN Reason Start Time Stop Time Status Last Admin Dose Admin Acetaminophen (Tylenol) 650 mg PRN Q6HRS PRN PO MILD PAIN / TEMP > 100.3'F 03/14/21 20:45 03/17/21 15:50 Multi-Ingredient Ointment (Analgesic [place]) 1 shwetha PRN QID PRN TP MUSCLE PAIN 03/14/21 20:45 Al Hydroxide/Mg Hydroxide (Mylanta Plus Xs) 15 ml PRN AFTMEALHC PRN PO DYSPEPSIA 03/14/21 20:45 Magnesium Hydroxide (Milk Of Magnesia) 2,400 mg PRN QHS PRN PO CONSTIPATION 03/14/21 20:45 Acetaminophen (Tylenol) 650 mg TID PRN PO Back Pain 03/14/21 21:45 UNV Ascorbic Acid (Vitamin C) 500 mg BID PO 03/15/21 09:00 04/09/21 20:25 Aspirin (Aspirin Chewable) 81 mg DAILY PO 03/15/21 09:00 04/09/21 08:56 Atorvastatin Calcium (Lipitor) 20 mg DAILY PO 03/15/21 09:00 04/09/21 08:56 Carbidopa/Levodopa (Sinemet 10/100) 1 tab TID PO 03/14/21 23:00 03/23/21 13:44 DC 03/23/21 13:34 Vitamin D (Vitamin D3) 50,000 unit QWE PO 03/20/21 16:00 04/03/21 15:22 Ferrous Sulfate (Feosol) 325 mg BID PO 03/15/21 09:00 04/09/21 20:26 Furosemide (Lasix) 20 mg DAILY PO 03/15/21 09:00 04/02/21 15:34 DC 04/02/21 08:37 Gabapentin (Neurontin Oral Soln) 150 mg BID@1400,2200 PO 03/14/21 23:00 03/16/21 13:20 DC 03/14/21 23:14 Lisinopril (Prinivil) 10 mg DAILY PO 03/15/21 09:00 04/09/21 08:56 Metformin HCl (Glucophage) 500 mg BIDWMEALS PO 03/15/21 08:00 04/09/21 17:03 Metoprolol Tartrate (Lopressor) 12.5 mg BID PO 03/14/21 23:00 04/09/21 20:25 Tramadol HCl (Ultram) 50 mg PRN Q6HRS PRN PO MOD-SEV PAIN 03/14/21 21:45 04/09/21 17:18 Celecoxib (CeleBREX) 200 mg DAILY PO 03/15/21 09:00 04/09/21 08:56 Lactobacillus Rhamnosus (Culturelle) 1 cap BID PO 03/14/21 23:00 04/09/21 20:24 Pantoprazole Sodium (Protonix) 40 mg DAILY PO 03/15/21 09:00 04/09/21 09:00 Potassium Chloride (Klor-Con) 10 meq DAILY PO 03/15/21 09:00 04/09/21 08:56 Trolamine Salicylate (Myoplex) 1 shwetha TID TP 03/15/21 09:00 04/09/21 20:26 Benztropine Mesylate (Cogentin) 1 mg BID PO 03/14/21 23:00 04/09/21 20:24 Clonazepam (KlonoPIN) 2 mg BID PO 03/14/21 23:00 03/16/21 16:48 DC 03/16/21 09:00 Divalproex Sodium (Depakote Er) 1,000 mg BID PO 03/14/21 23:00 04/09/21 20:24 Fluphenazine HCl (Prolixin) 15 mg BID PO 03/14/21 23:00 04/09/21 20:26 Lorazepam (Ativan) 1 mg TID PO 03/14/21 23:00 03/16/21 18:45 DC 03/16/21 14:00 Risperidone (RisperDAL) 2 mg DAILY@1400 PO 03/15/21 14:00 04/09/21 13:36 Risperidone (RisperDAL) 4 mg QHS PO 03/14/21 23:00 04/09/21 20:26 Nicotine (Nicoderm Cq 21mg Patch) 1 patch DAILY TD 03/15/21 09:00 04/09/21 09:05 Gabapentin (Neurontin) 100 mg TID PO 03/16/21 14:00 04/09/21 20:25 Ropinirole HCl (Requip) 0.5 mg TID PO 03/16/21 21:00 04/05/21 17:12 DC 04/05/21 09:01 Clonazepam (KlonoPIN) 2 mg HS PO 03/16/21 21:00 03/19/21 21:01 DC 03/18/21 21:13 Clonazepam (KlonoPIN) 1.5 mg DAILY PO 03/17/21 09:00 03/23/21 08:00 DC 03/22/21 08:04 Clonazepam (KlonoPIN) 1 mg DAILY PO 03/23/21 09:00 03/26/21 15:27 DC 03/26/21 08:33 Clonazepam (KlonoPIN) 0.5 mg DAILY PO 03/29/21 09:00 03/26/21 15:27 DC Clonazepam (KlonoPIN) 1.5 mg HS PO 03/20/21 21:00 03/25/21 21:01 DC 03/25/21 19:56 Clonazepam (KlonoPIN) 1 mg QHS PO 03/26/21 21:00 03/26/21 15:27 DC Clonazepam (KlonoPIN) 0.5 mg HS PO 04/01/21 21:00 03/26/21 15:27 DC Lorazepam (Ativan) 1 mg BID PO 03/17/21 21:00 03/19/21 21:01 DC 03/19/21 08:13 Lorazepam (Ativan) 1 mg DAILY PO 03/20/21 09:00 03/22/21 08:59 DC 03/21/21 08:36 Clonazepam (KlonoPIN) 0.5 mg DAILY PO 03/27/21 09:00 03/28/21 21:00 DC 03/28/21 08:28 Clozapine (Clozaril) 25 mg HS PO 03/29/21 21:00 04/01/21 16:44 DC 03/31/21 20:26 Clozapine (Clozaril) 50 mg HS PO 04/01/21 21:00 04/08/21 16:58 DC 04/07/21 20:08 Ropinirole HCl (Requip) 1 mg HS PO 04/05/21 21:00 04/09/21 20:25 Clozapine (Clozaril) 75 mg HS PO 04/08/21 21:00 04/09/21 20:24 I have reviewed the current psychotropics carefully including drug interactions. Risk benefit ratio favors no change other than as noted in my dictated progress note. Diagnosis: Problems: (1) Anxiety disorder (2) Impulse control disorder (3) Schizoaffective disorder, chronic condition with acute exacerbation BESSIE SOLORIO MD Apr 10, 2021 06:57
[2021-04-10] MEDS: NICOTINE 21MG PATCH. TD SCH (08:02)
[2021-04-10] MEDS: GABAPENTIN 100 MG CAPSULE. PO SCH ×3 (08:03→20:24)
[2021-04-10] MEDS: FERROUS SULFATE 325 MG TABLET. PO SCH ×2 (08:03→20:26)
[2021-04-10] MEDS: metFORMIN 500 MG TABLET PO SCH ×2 (08:03→17:15)
[2021-04-10] MEDS: METOPROLOL TART IMMED RELEASE 25 MG TABLET. PO SCH ×2 (08:04→20:26)
[2021-04-10] MEDS: CELECOXIB 100 MG CAPSULE PO SCH (08:04)
[2021-04-10] MEDS: POTASSIUM CHLORIDE 10 MEQ TABLET.ER. PO SCH (08:04)
[2021-04-10] MEDS: BENZTROPINE MESYLATE 1 MG TABLET PO SCH ×2 (08:05→20:27)
[2021-04-10] MEDS: PANTOPRAZOLE 40 MG TABLET. PO SCH (08:05)
[2021-04-10] MEDS: LACTOBACILLUS RHAMNOSUS GG 1 CAPSULE. PO SCH ×2 (08:05→20:27)
[2021-04-10] MEDS: DIVALPROEX ER 500 MG TAB.ER.24H PO SCH ×2 (08:05→20:26)
[2021-04-10] MEDS: ASCORBIC ACID 500 MG TABLET PO SCH ×2 (08:05→20:24)
[2021-04-10] MEDS: LISINOPRIL 10 MG TABLET PO SCH (08:05)
[2021-04-10] MEDS: TROLAMINE SALICYLATE 10% TOPICAL CREAM 85GM JAR. TP SCH ×3 (08:06→20:27)
[2021-04-10] MEDS: ASPIRIN CHEWABLE 81 MG TABLET. PO SCH (08:06)
[2021-04-10] MEDS: ATORVASTATIN CALCIUM 20 MG TABLET PO SCH (08:06)
--- NOTE | 2021-04-10 14:02 | NUR ---
NSG NOTE; Ruthy is impatient with cares and meds, but has been med comliant today without any argument.
[2021-04-10] MEDS: risperiDONE 2 MG TABLET. PO SCH ×2 (14:31→20:25)
[2021-04-10 16:00] VITALS: BP 147/64
[2021-04-10] MEDS: CHOLECALCIFEROL (VITAMIN D3) 50,000 UNIT CAPSULE PO SCH (17:15)
[2021-04-10] MEDS: traMADol 50 MG TABLET PO PRN (17:20)
[2021-04-10] MEDS: rOPINIRole 1 MG TABLET. PO SCH (20:25)
[2021-04-10] MEDS: cloZAPine 25 MG TABLET PO SCH (20:27)
--- NOTE | 2021-04-10 22:11 | PDOC ---
Exam Note: Timothy Note: Please also refer to the separate dictated note~for this date of service dictated separately.~Patient seen individually. Discussed the patient with Nursing staff reviewed the chart.~Reviewed interim history and current functioning. Reviewed vital signs,~Labs/ Radiology~and current medications noted below. Continue current treatment with the changes noted in the dictated addendum note Assessment: Vital Signs/I&O: Vital Signs Date Time Temp Pulse Resp B/P (MAP) Pulse Ox O2 Delivery O2 Flow Rate FiO2 04/10/21 20:26 80 147/64 04/10/21 16:00 97.6 16 96 I & O 04/09/21 04/09/21 04/10/21 15:00 23:00 07:00 Intake Total 840 ml 600 ml Balance 840 ml 600 ml Current Medications: Meds: Current Medications Medications (Trade) Dose Ordered Sig/Arnold Route PRN Reason Start Time Stop Time Status Last Admin Dose Admin Acetaminophen (Tylenol) 650 mg PRN Q6HRS PRN PO MILD PAIN / TEMP > 100.3'F 03/14/21 20:45 03/17/21 15:50 Multi-Ingredient Ointment (Analgesic [place]) 1 shwetha PRN QID PRN TP MUSCLE PAIN 03/14/21 20:45 Al Hydroxide/Mg Hydroxide (Mylanta Plus Xs) 15 ml PRN AFTMEALHC PRN PO DYSPEPSIA 03/14/21 20:45 Magnesium Hydroxide (Milk Of Magnesia) 2,400 mg PRN QHS PRN PO CONSTIPATION 03/14/21 20:45 Acetaminophen (Tylenol) 650 mg TID PRN PO Back Pain 03/14/21 21:45 UNV Ascorbic Acid (Vitamin C) 500 mg BID PO 03/15/21 09:00 04/10/21 20:24 Aspirin (Aspirin Chewable) 81 mg DAILY PO 03/15/21 09:00 04/10/21 08:06 Atorvastatin Calcium (Lipitor) 20 mg DAILY PO 03/15/21 09:00 04/10/21 08:06 Carbidopa/Levodopa (Sinemet 10/100) 1 tab TID PO 03/14/21 23:00 03/23/21 13:44 DC 03/23/21 13:34 Vitamin D (Vitamin D3) 50,000 unit QWE PO 03/20/21 16:00 04/10/21 17:15 Ferrous Sulfate (Feosol) 325 mg BID PO 03/15/21 09:00 04/10/21 20:26 Furosemide (Lasix) 20 mg DAILY PO 03/15/21 09:00 04/02/21 15:34 DC 04/02/21 08:37 Gabapentin (Neurontin Oral Soln) 150 mg BID@1400,2200 PO 03/14/21 23:00 03/16/21 13:20 DC 03/14/21 23:14 Lisinopril (Prinivil) 10 mg DAILY PO 03/15/21 09:00 04/10/21 08:05 Metformin HCl (Glucophage) 500 mg BIDWMEALS PO 03/15/21 08:00 04/10/21 17:15 Metoprolol Tartrate (Lopressor) 12.5 mg BID PO 03/14/21 23:00 04/10/21 20:26 Tramadol HCl (Ultram) 50 mg PRN Q6HRS PRN PO MOD-SEV PAIN 03/14/21 21:45 04/10/21 17:20 Celecoxib (CeleBREX) 200 mg DAILY PO 03/15/21 09:00 04/10/21 08:04 Lactobacillus Rhamnosus (Culturelle) 1 cap BID PO 03/14/21 23:00 04/10/21 20:27 Pantoprazole Sodium (Protonix) 40 mg DAILY PO 03/15/21 09:00 04/10/21 08:05 Potassium Chloride (Klor-Con) 10 meq DAILY PO 03/15/21 09:00 04/10/21 08:04 Trolamine Salicylate (Myoplex) 1 shwetha TID TP 03/15/21 09:00 04/10/21 20:27 Benztropine Mesylate (Cogentin) 1 mg BID PO 03/14/21 23:00 04/10/21 20:27 Clonazepam (KlonoPIN) 2 mg BID PO 03/14/21 23:00 03/16/21 16:48 DC 03/16/21 09:00 Divalproex Sodium (Depakote Er) 1,000 mg BID PO 03/14/21 23:00 04/10/21 20:26 Fluphenazine HCl (Prolixin) 15 mg BID PO 03/14/21 23:00 04/10/21 20:24 Lorazepam (Ativan) 1 mg TID PO 03/14/21 23:00 03/16/21 18:45 DC 03/16/21 14:00 Risperidone (RisperDAL) 2 mg DAILY@1400 PO 03/15/21 14:00 04/10/21 14:31 Risperidone (RisperDAL) 4 mg QHS PO 03/14/21 23:00 04/10/21 20:25 Nicotine (Nicoderm Cq 21mg Patch) 1 patch DAILY TD 03/15/21 09:00 04/10/21 08:02 Gabapentin (Neurontin) 100 mg TID PO 03/16/21 14:00 04/10/21 20:24 Ropinirole HCl (Requip) 0.5 mg TID PO 03/16/21 21:00 04/05/21 17:12 DC 04/05/21 09:01 Clonazepam (KlonoPIN) 2 mg HS PO 03/16/21 21:00 03/19/21 21:01 DC 03/18/21 21:13 Clonazepam (KlonoPIN) 1.5 mg DAILY PO 03/17/21 09:00 03/23/21 08:00 DC 03/22/21 08:04 Clonazepam (KlonoPIN) 1 mg DAILY PO 03/23/21 09:00 03/26/21 15:27 DC 03/26/21 08:33 Clonazepam (KlonoPIN) 0.5 mg DAILY PO 03/29/21 09:00 03/26/21 15:27 DC Clonazepam (KlonoPIN) 1.5 mg HS PO 03/20/21 21:00 03/25/21 21:01 DC 03/25/21 19:56 Clonazepam (KlonoPIN) 1 mg QHS PO 03/26/21 21:00 03/26/21 15:27 DC Clonazepam (KlonoPIN) 0.5 mg HS PO 04/01/21 21:00 03/26/21 15:27 DC Lorazepam (Ativan) 1 mg BID PO 03/17/21 21:00 03/19/21 21:01 DC 03/19/21 08:13 Lorazepam (Ativan) 1 mg DAILY PO 03/20/21 09:00 03/22/21 08:59 DC 03/21/21 08:36 Clonazepam (KlonoPIN) 0.5 mg DAILY PO 03/27/21 09:00 03/28/21 21:00 DC 03/28/21 08:28 Clozapine (Clozaril) 25 mg HS PO 03/29/21 21:00 04/01/21 16:44 DC 03/31/21 20:26 Clozapine (Clozaril) 50 mg HS PO 04/01/21 21:00 04/08/21 16:58 DC 04/07/21 20:08 Ropinirole HCl (Requip) 1 mg HS PO 04/05/21 21:00 04/10/21 20:25 Clozapine (Clozaril) 75 mg HS PO 04/08/21 21:00 04/10/21 20:27 I have reviewed the current psychotropics carefully including drug interactions. Risk benefit ratio favors no change other than as noted in my dictated progress note. Diagnosis: Problems: (1) Anxiety disorder (2) Impulse control disorder (3) Schizoaffective disorder, chronic condition with acute exacerbation BESSIE SOLORIO MD Apr 10, 2021 22:11
--- NOTE | 2021-04-11 01:13 | NUR ---
Nursing Note The patient was located in the day room for her assessment and medication pass. The patient took her medication whole. The patient was appropriate during interactions with this nurse and peers. The patient was alert to name, date and locations. The patient is currently sleeping in her room.
[2021-04-11 06:20] VITALS: BP 116/78
--- NOTE | 2021-04-11 08:08 | PDOC ---
Exam Note: Timothy Note: This note is a late entry for 04/10/2021 covers elements not covered in my initial note. Subjective: The patient was seen individually in the evening of 04/10/2021 with Bren DORAN, discussed and reviewed the chart. She slept 6-3/4 hours previous night. Previous night the patient was somewhat pleasant, cooperative, compliant with medications. She has been talking about her traumatic background. As I met with her she talked about having finished high school, started college at [employer] but dropped out after the first semester of the freshman year due to worsening psychotic symptoms. She has been very compliant with her medications today, quite an improvement, less obsessive, paranoid as I met with her at length in her room this evening. Review of Systems: Ambulation impaired in wheelchair. No CV, , pulmonary, eye, ENT system symptoms on review. Mental Status Exam: The patient is awake, alert and oriented. She is quite verbal, interactive, much less paranoid accepting of her diagnoses and treatment. She is somewhat distractible. Speech coherent at times pressured. Abstraction fair. Computation impaired. Language function intact. Mood and affect less obsessive, paranoid. No suicidal or homicidal ideation. Laboratory Data: Reviewed. Impression: Schizoaffective disorder bipolar type, mixed with psychotic features. Anxiety disorder unspecified. Impulse control disorder unspecified. Plan: No change from initial note. She does have parkinsonian tremors and complains of pain and we will reduce the Prolixin after the next increase of the Clozaril next Thursday. Rest unchanged for now including Depakote level therapeutic. Assessment: Vital Signs/I&O: Vital Signs Date Time Temp Pulse Resp B/P (MAP) Pulse Ox O2 Delivery O2 Flow Rate FiO2 04/11/21 06:20 97.8 66 16 116/78 (91) 92 Room Air I & O 04/10/21 04/10/21 04/11/21 15:00 23:00 07:00 Intake Total 600 ml 600 ml Balance 600 ml 600 ml Current Medications: Meds: Current Medications Medications (Trade) Dose Ordered Sig/Arnold Route PRN Reason Start Time Stop Time Status Last Admin Dose Admin Acetaminophen (Tylenol) 650 mg PRN Q6HRS PRN PO MILD PAIN / TEMP > 100.3'F 03/14/21 20:45 03/17/21 15:50 Multi-Ingredient Ointment (Analgesic [place]) 1 shwetha PRN QID PRN TP MUSCLE PAIN 03/14/21 20:45 Al Hydroxide/Mg Hydroxide (Mylanta Plus Xs) 15 ml PRN AFTMEALHC PRN PO DYSPEPSIA 03/14/21 20:45 Magnesium Hydroxide (Milk Of Magnesia) 2,400 mg PRN QHS PRN PO CONSTIPATION 03/14/21 20:45 Acetaminophen (Tylenol) 650 mg TID PRN PO Back Pain 03/14/21 21:45 UNV Ascorbic Acid (Vitamin C) 500 mg BID PO 03/15/21 09:00 04/10/21 20:24 Aspirin (Aspirin Chewable) 81 mg DAILY PO 03/15/21 09:00 04/10/21 08:06 Atorvastatin Calcium (Lipitor) 20 mg DAILY PO 03/15/21 09:00 04/10/21 08:06 Carbidopa/Levodopa (Sinemet 10/100) 1 tab TID PO 03/14/21 23:00 03/23/21 13:44 DC 03/23/21 13:34 Vitamin D (Vitamin D3) 50,000 unit QWE PO 03/20/21 16:00 04/10/21 17:15 Ferrous Sulfate (Feosol) 325 mg BID PO 03/15/21 09:00 04/10/21 20:26 Furosemide (Lasix) 20 mg DAILY PO 03/15/21 09:00 04/02/21 15:34 DC 04/02/21 08:37 Gabapentin (Neurontin Oral Soln) 150 mg BID@1400,2200 PO 03/14/21 23:00 03/16/21 13:20 DC 03/14/21 23:14 Lisinopril (Prinivil) 10 mg DAILY PO 03/15/21 09:00 04/10/21 08:05 Metformin HCl (Glucophage) 500 mg BIDWMEALS PO 03/15/21 08:00 04/10/21 17:15 Metoprolol Tartrate (Lopressor) 12.5 mg BID PO 03/14/21 23:00 04/10/21 20:26 Tramadol HCl (Ultram) 50 mg PRN Q6HRS PRN PO MOD-SEV PAIN 03/14/21 21:45 04/10/21 17:20 Celecoxib (CeleBREX) 200 mg DAILY PO 03/15/21 09:00 04/10/21 08:04 Lactobacillus Rhamnosus (Culturelle) 1 cap BID PO 03/14/21 23:00 04/10/21 20:27 Pantoprazole Sodium (Protonix) 40 mg DAILY PO 03/15/21 09:00 04/10/21 08:05 Potassium Chloride (Klor-Con) 10 meq DAILY PO 03/15/21 09:00 04/10/21 08:04 Trolamine Salicylate (Myoplex) 1 shwetha TID TP 03/15/21 09:00 04/10/21 20:27 Benztropine Mesylate (Cogentin) 1 mg BID PO 03/14/21 23:00 04/10/21 20:27 Clonazepam (KlonoPIN) 2 mg BID PO 03/14/21 23:00 03/16/21 16:48 DC 03/16/21 09:00 Divalproex Sodium (Depakote Er) 1,000 mg BID PO 03/14/21 23:00 04/10/21 20:26 Fluphenazine HCl (Prolixin) 15 mg BID PO 03/14/21 23:00 04/10/21 20:24 Lorazepam (Ativan) 1 mg TID PO 03/14/21 23:00 03/16/21 18:45 DC 03/16/21 14:00 Risperidone (RisperDAL) 2 mg DAILY@1400 PO 03/15/21 14:00 04/10/21 14:31 Risperidone (RisperDAL) 4 mg QHS PO 03/14/21 23:00 04/10/21 20:25 Nicotine (Nicoderm Cq 21mg Patch) 1 patch DAILY TD 03/15/21 09:00 04/10/21 08:02 Gabapentin (Neurontin) 100 mg TID PO 03/16/21 14:00 04/10/21 20:24 Ropinirole HCl (Requip) 0.5 mg TID PO 03/16/21 21:00 04/05/21 17:12 DC 04/05/21 09:01 Clonazepam (KlonoPIN) 2 mg HS PO 03/16/21 21:00 03/19/21 21:01 DC 03/18/21 21:13 Clonazepam (KlonoPIN) 1.5 mg DAILY PO 03/17/21 09:00 03/23/21 08:00 DC 03/22/21 08:04 Clonazepam (KlonoPIN) 1 mg DAILY PO 03/23/21 09:00 03/26/21 15:27 DC 03/26/21 08:33 Clonazepam (KlonoPIN) 0.5 mg DAILY PO 03/29/21 09:00 03/26/21 15:27 DC Clonazepam (KlonoPIN) 1.5 mg HS PO 03/20/21 21:00 03/25/21 21:01 DC 03/25/21 19:56 Clonazepam (KlonoPIN) 1 mg QHS PO 03/26/21 21:00 03/26/21 15:27 DC Clonazepam (KlonoPIN) 0.5 mg HS PO 04/01/21 21:00 03/26/21 15:27 DC Lorazepam (Ativan) 1 mg BID PO 03/17/21 21:00 03/19/21 21:01 DC 03/19/21 08:13 Lorazepam (Ativan) 1 mg DAILY PO 03/20/21 09:00 03/22/21 08:59 DC 03/21/21 08:36 Clonazepam (KlonoPIN) 0.5 mg DAILY PO 03/27/21 09:00 03/28/21 21:00 DC 03/28/21 08:28 Clozapine (Clozaril) 25 mg HS PO 03/29/21 21:00 04/01/21 16:44 DC 03/31/21 20:26 Clozapine (Clozaril) 50 mg HS PO 04/01/21 21:00 04/08/21 16:58 DC 04/07/21 20:08 Ropinirole HCl (Requip) 1 mg HS PO 04/05/21 21:00 04/10/21 20:25 Clozapine (Clozaril) 75 mg HS PO 04/08/21 21:00 04/10/21 20:27 I have reviewed the current psychotropics carefully including drug interactions. Risk benefit ratio favors no change other than as noted in my dictated progress note. Diagnosis: Problems: (1) Anxiety disorder (2) Impulse control disorder (3) Schizoaffective disorder, chronic condition with acute exacerbation BESSIE SOLORIO MD Apr 11, 2021 08:08
[2021-04-11] MEDS: PANTOPRAZOLE 40 MG TABLET. PO SCH (08:45)
[2021-04-11] MEDS: LACTOBACILLUS RHAMNOSUS GG 1 CAPSULE. PO SCH ×2 (08:45→20:27)
[2021-04-11] MEDS: LISINOPRIL 10 MG TABLET PO SCH (08:45)
[2021-04-11] MEDS: FERROUS SULFATE 325 MG TABLET. PO SCH ×2 (08:45→20:28)
[2021-04-11] MEDS: ASPIRIN CHEWABLE 81 MG TABLET. PO SCH (08:45)
[2021-04-11] MEDS: CELECOXIB 100 MG CAPSULE PO SCH (08:45)
[2021-04-11] MEDS: BENZTROPINE MESYLATE 1 MG TABLET PO SCH ×2 (08:46→20:28)
[2021-04-11] MEDS: ATORVASTATIN CALCIUM 20 MG TABLET PO SCH (08:46)
[2021-04-11] MEDS: ASCORBIC ACID 500 MG TABLET PO SCH ×2 (08:46→20:25)
[2021-04-11] MEDS: DIVALPROEX ER 500 MG TAB.ER.24H PO SCH ×2 (08:46→20:28)
[2021-04-11] MEDS: POTASSIUM CHLORIDE 10 MEQ TABLET.ER. PO SCH (08:46)
[2021-04-11] MEDS: metFORMIN 500 MG TABLET PO SCH ×2 (08:47→17:38)
[2021-04-11] MEDS: METOPROLOL TART IMMED RELEASE 25 MG TABLET. PO SCH ×2 (08:47→20:27)
[2021-04-11] MEDS: GABAPENTIN 100 MG CAPSULE. PO SCH ×3 (08:47→20:25)
[2021-04-11] MEDS: NICOTINE 21MG PATCH. TD SCH (08:48)
[2021-04-11] MEDS: TROLAMINE SALICYLATE 10% TOPICAL CREAM 85GM JAR. TP SCH ×3 (08:52→20:29)
--- NOTE | 2021-04-11 12:22 | NUR ---
WEEKLY ACTIVITY THERAPY NOTE Date of Admission: 03/14/2021 Date of AT Assessment: 03/15 Precipitating behaviors that initiated intake and admission: crying fits, screaming, singing, labile mood, manic, insomnia, "wild eyed stare", eloped from facility, refusing medications, delusional- thinks staff and male peer are trying to have sex with her. Goal aimed: to increase engagement and socialization Initial Goal:Pt. will participate in at least one Activity Therapy group per day. Goal repeated 04/04 Weekly progress towards goal: did not achieve Group participation level: 3 min, 1 mod, 1 full Weekly highlights: pool noodle exercises , tossed horseshoes , patio and social hour Thursday, watched and guessed most tv theme songs Thursday Behaviors observed: social and pleasant, limited attention Plan: no change to goal Beneficial adaptations: patio and music
[2021-04-11] MEDS: risperiDONE 2 MG TABLET. PO SCH ×2 (12:51→20:26)
--- NOTE | 2021-04-11 15:20 | NUR ---
Nursing Note: Pt. has been medication compliant. She continues to be delusional, thinking that someone has stolen her wallet and that she is discharging next week. She states to nursing that she does not have any sort of health problems. She has been wandering the unit in her wheelchair and in the day room hanging out and socializing with other pts. She has been irritable throughout the day with different patients and staff when being redirected.
[2021-04-11] MEDS: traMADol 50 MG TABLET PO PRN (15:31)
[2021-04-11 15:48] VITALS: BP_SYST 101
--- NOTE | 2021-04-11 16:39 | NUR ---
Treatment team note: Pt is eating mostly 100% of meals and sleeping on average 6.25 hours. Pt continues to be labile and delusional (e.g. talking to the nair) but appears calmer with interactions and redirection. Pt is more medication compliant and does need encouragement sometimes despite attempts to refuse them. Pt has attended five groups with minimal to moderate participation but is noted to start the group but will then leave before group is over. Pt will continue to have her Clozaril addressed with labs on Thursday. KIKE for the latter part of next week.
--- NOTE | 2021-04-11 16:45 | TX PLAN ---
Interdisciplinary Tx Plan Admission Information Mar 14, 2021 at 19:55 Legal Status (on Admission): Voluntary DPOA/Guardian Name: Coral Walters Contact Other Contact Name: Deshawn on Other Contact Verified Code Status: Full Code Allergies: Coded Allergies: haloperidol (Verified Allergy, Intermediate, 12/21/15) Diagnoses Primary Diagnosis: Schizoaffective D/O Bipolar type, mixed with psychotic features Reasons for Admission: Delusions, Sig. Change Sleep, Poor impulse control, Other Problem in Patient's Words: "I have nothing right now". Additional Admission Comments: According to the intake, pt is labile/manic AEB having crying fits, screaming then randomly singing, exit seeking, refusing cares, not sleeping, eloped and refusion meds. Pt is delusional thinking staff and male peer are trying to have sex with her. Problems Active Problems: resistive to cares labile delusional somatic complaints Inactive Problems: mostly medication compliant Pt Strengths/Limitations Ability for [place]: Poor Cognitive Functioning/Ability: Fair Communication Skills/Ability: Fair Financial Resources: Poor Insight/Judgement: Poor Intellectual Ability: Fair Physical Health: Poor Social Skills: Poor Stability in Family: Poor Stability in School/Work: Poor Verbal Skills: Fair Discharge Criteria Discharge Criteria: No need for close observ., Adequate arrangements @DC, Improved behavior, Improved mood/thought Preliminary Discharge Plan Preliminary DC Plan: Current Living Arrange. Special Precautions Fall Risk: Moderate Initial D/C Plan Pt to return to [facility] on once stable. Identified Discharge Needs: Psychiatric services Currently Utilized Resources Currently Utilized Resources/P: Primary Care Physician Referrals Community Resources: Psychiatric follow-up Identified Problems/Hx/Goals Objectives/Short-Term Goals Short Term Goals: Dec. Hallucination/Delus, Dec. Outbursts, Medication Stabilization, Monitor Med Effects, Promote Coping Skill, Other Short Term Goals in Patient's: N/A Interventions/Frequency Staff Interventions/Frequency&: Psychiatrist to assess pt at least 3x per week for medication management. Social Work to assess pt at least 2x per week to identify barriers to care and dishcarge planning goals. Nursing to assess medication effects, behavior modification and completion of 15 minute checks daily. 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 Pt continues to be labile and delusional (e.g. talking to the nair) but appears calmer with interactions and redirection. Pt is more medication compliant and does need encouragement sometimes despite attempts to refuse them. Pt has attended five groups with minimal to moderate participation but is noted to start the group but will then leave before group is over. Pt will continue to have her Clozaril addressed with labs on Thursday. KIKE for the latter part of next week. KIMBERLY MCKEON Apr 11, 2021 16:45
[2021-04-11] MEDS: cloZAPine 25 MG TABLET PO SCH (20:25)
[2021-04-11] MEDS: rOPINIRole 1 MG TABLET. PO SCH (20:25)
--- NOTE | 2021-04-11 22:07 | PDOC ---
Exam Note: Timothy Note: Please also refer to the separate dictated note~for this date of service dictated separately.~Patient seen individually. Discussed the patient with Nursing staff reviewed the chart.~Reviewed interim history and current functioning. Reviewed vital signs,~Labs/ Radiology~and current medications noted below. Continue current treatment with the changes noted in the dictated addendum note Assessment: Vital Signs/I&O: Vital Signs Date Time Temp Pulse Resp B/P (MAP) Pulse Ox O2 Delivery O2 Flow Rate FiO2 04/11/21 20:27 76 101/62 04/11/21 16:09 16 97 Room Air 04/11/21 15:48 98.0 I & O 04/10/21 04/10/21 04/11/21 15:00 23:00 07:00 Intake Total 600 ml 600 ml Balance 600 ml 600 ml Current Medications: Meds: Current Medications Medications (Trade) Dose Ordered Sig/Arnold Route PRN Reason Start Time Stop Time Status Last Admin Dose Admin Acetaminophen (Tylenol) 650 mg PRN Q6HRS PRN PO MILD PAIN / TEMP > 100.3'F 03/14/21 20:45 03/17/21 15:50 Multi-Ingredient Ointment (Analgesic [place]) 1 shwetha PRN QID PRN TP MUSCLE PAIN 03/14/21 20:45 Al Hydroxide/Mg Hydroxide (Mylanta Plus Xs) 15 ml PRN AFTMEALHC PRN PO DYSPEPSIA 03/14/21 20:45 Magnesium Hydroxide (Milk Of Magnesia) 2,400 mg PRN QHS PRN PO CONSTIPATION 03/14/21 20:45 Acetaminophen (Tylenol) 650 mg TID PRN PO Back Pain 03/14/21 21:45 UNV Ascorbic Acid (Vitamin C) 500 mg BID PO 03/15/21 09:00 04/11/21 20:25 Aspirin (Aspirin Chewable) 81 mg DAILY PO 03/15/21 09:00 04/11/21 08:45 Atorvastatin Calcium (Lipitor) 20 mg DAILY PO 03/15/21 09:00 04/11/21 08:46 Carbidopa/Levodopa (Sinemet 10/100) 1 tab TID PO 03/14/21 23:00 03/23/21 13:44 DC 03/23/21 13:34 Vitamin D (Vitamin D3) 50,000 unit QWE PO 03/20/21 16:00 04/10/21 17:15 Ferrous Sulfate (Feosol) 325 mg BID PO 03/15/21 09:00 04/11/21 20:28 Furosemide (Lasix) 20 mg DAILY PO 03/15/21 09:00 04/02/21 15:34 DC 04/02/21 08:37 Gabapentin (Neurontin Oral Soln) 150 mg BID@1400,2200 PO 03/14/21 23:00 03/16/21 13:20 DC 03/14/21 23:14 Lisinopril (Prinivil) 10 mg DAILY PO 03/15/21 09:00 04/11/21 08:45 Metformin HCl (Glucophage) 500 mg BIDWMEALS PO 03/15/21 08:00 04/11/21 17:38 Metoprolol Tartrate (Lopressor) 12.5 mg BID PO 03/14/21 23:00 04/11/21 20:27 Tramadol HCl (Ultram) 50 mg PRN Q6HRS PRN PO MOD-SEV PAIN 03/14/21 21:45 04/11/21 15:31 Celecoxib (CeleBREX) 200 mg DAILY PO 03/15/21 09:00 04/11/21 08:45 Lactobacillus Rhamnosus (Culturelle) 1 cap BID PO 03/14/21 23:00 04/11/21 20:27 Pantoprazole Sodium (Protonix) 40 mg DAILY PO 03/15/21 09:00 04/11/21 08:45 Potassium Chloride (Klor-Con) 10 meq DAILY PO 03/15/21 09:00 04/11/21 08:46 Trolamine Salicylate (Myoplex) 1 shwetha TID TP 03/15/21 09:00 04/11/21 20:29 Benztropine Mesylate (Cogentin) 1 mg BID PO 03/14/21 23:00 04/11/21 20:28 Clonazepam (KlonoPIN) 2 mg BID PO 03/14/21 23:00 03/16/21 16:48 DC 03/16/21 09:00 Divalproex Sodium (Depakote Er) 1,000 mg BID PO 03/14/21 23:00 04/11/21 20:28 Fluphenazine HCl (Prolixin) 15 mg BID PO 03/14/21 23:00 04/11/21 20:23 Lorazepam (Ativan) 1 mg TID PO 03/14/21 23:00 03/16/21 18:45 DC 03/16/21 14:00 Risperidone (RisperDAL) 2 mg DAILY@1400 PO 03/15/21 14:00 04/11/21 12:51 Risperidone (RisperDAL) 4 mg QHS PO 03/14/21 23:00 04/11/21 20:26 Nicotine (Nicoderm Cq 21mg Patch) 1 patch DAILY TD 03/15/21 09:00 04/11/21 08:48 Gabapentin (Neurontin) 100 mg TID PO 03/16/21 14:00 04/11/21 20:25 Ropinirole HCl (Requip) 0.5 mg TID PO 03/16/21 21:00 04/05/21 17:12 DC 04/05/21 09:01 Clonazepam (KlonoPIN) 2 mg HS PO 03/16/21 21:00 03/19/21 21:01 DC 03/18/21 21:13 Clonazepam (KlonoPIN) 1.5 mg DAILY PO 03/17/21 09:00 03/23/21 08:00 DC 03/22/21 08:04 Clonazepam (KlonoPIN) 1 mg DAILY PO 03/23/21 09:00 03/26/21 15:27 DC 03/26/21 08:33 Clonazepam (KlonoPIN) 0.5 mg DAILY PO 03/29/21 09:00 03/26/21 15:27 DC Clonazepam (KlonoPIN) 1.5 mg HS PO 03/20/21 21:00 03/25/21 21:01 DC 03/25/21 19:56 Clonazepam (KlonoPIN) 1 mg QHS PO 03/26/21 21:00 03/26/21 15:27 DC Clonazepam (KlonoPIN) 0.5 mg HS PO 04/01/21 21:00 03/26/21 15:27 DC Lorazepam (Ativan) 1 mg BID PO 03/17/21 21:00 03/19/21 21:01 DC 03/19/21 08:13 Lorazepam (Ativan) 1 mg DAILY PO 03/20/21 09:00 03/22/21 08:59 DC 03/21/21 08:36 Clonazepam (KlonoPIN) 0.5 mg DAILY PO 03/27/21 09:00 03/28/21 21:00 DC 03/28/21 08:28 Clozapine (Clozaril) 25 mg HS PO 03/29/21 21:00 04/01/21 16:44 DC 03/31/21 20:26 Clozapine (Clozaril) 50 mg HS PO 04/01/21 21:00 04/08/21 16:58 DC 04/07/21 20:08 Ropinirole HCl (Requip) 1 mg HS PO 04/05/21 21:00 04/11/21 20:25 Clozapine (Clozaril) 75 mg HS PO 04/08/21 21:00 04/11/21 20:25 I have reviewed the current psychotropics carefully including drug interactions. Risk benefit ratio favors no change other than as noted in my dictated progress note. Diagnosis: Problems: (1) Anxiety disorder (2) Impulse control disorder (3) Schizoaffective disorder, chronic condition with acute exacerbation BESSIE SOLORIO MD Apr 11, 2021 22:07
--- NOTE | 2021-04-11 22:43 | NUR ---
Patient is in the day room on assumption of care, sitting at the table. She is disorganized, flat and delusional. She continues to believe that her medications are poisoning her, but she did comply with taking them from this nurse. She states "There are too many pills here and they are gonna kill me, you guys just don't care if I ." She denies any pain or discomfort. Appears to be sleeping comfortably at present time. Will continue to monitor.
[2021-04-12 06:17] VITALS: BP 109/68
[2021-04-12] MEDS: DIVALPROEX ER 500 MG TAB.ER.24H PO SCH ×2 (08:14→20:49)
[2021-04-12] MEDS: metFORMIN 500 MG TABLET PO SCH ×2 (08:14→17:06)
[2021-04-12] MEDS: PANTOPRAZOLE 40 MG TABLET. PO SCH (08:15)
[2021-04-12] MEDS: LACTOBACILLUS RHAMNOSUS GG 1 CAPSULE. PO SCH ×2 (08:15→20:48)
[2021-04-12] MEDS: ASCORBIC ACID 500 MG TABLET PO SCH ×2 (08:15→20:48)
[2021-04-12] MEDS: GABAPENTIN 100 MG CAPSULE. PO SCH ×3 (08:15→20:49)
[2021-04-12] MEDS: CELECOXIB 100 MG CAPSULE PO SCH (08:15)
[2021-04-12] MEDS: FERROUS SULFATE 325 MG TABLET. PO SCH ×2 (08:16→20:48)
[2021-04-12] MEDS: POTASSIUM CHLORIDE 10 MEQ TABLET.ER. PO SCH (08:16)
[2021-04-12] MEDS: METOPROLOL TART IMMED RELEASE 25 MG TABLET. PO SCH ×2 (08:16→20:47)
[2021-04-12] MEDS: ASPIRIN CHEWABLE 81 MG TABLET. PO SCH (08:16)
[2021-04-12] MEDS: ATORVASTATIN CALCIUM 20 MG TABLET PO SCH (08:16)
[2021-04-12] MEDS: BENZTROPINE MESYLATE 1 MG TABLET PO SCH ×2 (08:16→20:47)
[2021-04-12] MEDS: LISINOPRIL 10 MG TABLET PO SCH (08:17)
[2021-04-12] MEDS: TROLAMINE SALICYLATE 10% TOPICAL CREAM 85GM JAR. TP SCH ×3 (08:18→20:49)
[2021-04-12] MEDS: NICOTINE 21MG PATCH. TD SCH (08:18)
--- NOTE | 2021-04-12 12:12 | NUR ---
SW received an email from APOLONIA Carter at [facility] on , who asked if staff would be able to measure pt hip width as they are in the process of ordering her a new wheelchair. FATOUMATA will follow up with staff on this and also faxed over updated notes for Emma to review. ELOS is the end of next week.
[2021-04-12] MEDS: risperiDONE 2 MG TABLET. PO SCH ×2 (14:10→20:49)
[2021-04-12 15:55] VITALS: BP 129/75
[2021-04-12] MEDS: cloZAPine 25 MG TABLET PO SCH (20:48)
[2021-04-12] MEDS: rOPINIRole 1 MG TABLET. PO SCH (20:48)
[2021-04-12] MEDS: traMADol 50 MG TABLET PO PRN (20:56)
--- NOTE | 2021-04-12 21:57 | PDOC ---
Exam Note: Timothy Note: Please also refer to the separate dictated note~for this date of service dictated separately.~Patient seen individually. Discussed the patient with Nursing staff reviewed the chart.~Reviewed interim history and current functioning. Reviewed vital signs,~Labs/ Radiology~and current medications noted below. Continue current treatment with the changes noted in the dictated addendum note Assessment: Vital Signs/I&O: Vital Signs Date Time Temp Pulse Resp B/P (MAP) Pulse Ox O2 Delivery O2 Flow Rate FiO2 04/12/21 21:49 93 04/12/21 20:47 82 129/75 04/12/21 15:55 98.6 18 04/11/21 16:09 Room Air I & O 04/11/21 04/11/21 04/12/21 15:00 23:00 07:00 Intake Total 600 ml 600 ml Balance 600 ml 600 ml Current Medications: Meds: Current Medications Medications (Trade) Dose Ordered Sig/Arnold Route PRN Reason Start Time Stop Time Status Last Admin Dose Admin Acetaminophen (Tylenol) 650 mg PRN Q6HRS PRN PO MILD PAIN / TEMP > 100.3'F 03/14/21 20:45 03/17/21 15:50 Multi-Ingredient Ointment (Analgesic [place]) 1 shwetha PRN QID PRN TP MUSCLE PAIN 03/14/21 20:45 Al Hydroxide/Mg Hydroxide (Mylanta Plus Xs) 15 ml PRN AFTMEALHC PRN PO DYSPEPSIA 03/14/21 20:45 Magnesium Hydroxide (Milk Of Magnesia) 2,400 mg PRN QHS PRN PO CONSTIPATION 03/14/21 20:45 Acetaminophen (Tylenol) 650 mg TID PRN PO Back Pain 03/14/21 21:45 UNV Ascorbic Acid (Vitamin C) 500 mg BID PO 03/15/21 09:00 04/12/21 20:48 Aspirin (Aspirin Chewable) 81 mg DAILY PO 03/15/21 09:00 04/12/21 08:16 Atorvastatin Calcium (Lipitor) 20 mg DAILY PO 03/15/21 09:00 04/12/21 08:16 Carbidopa/Levodopa (Sinemet 10/100) 1 tab TID PO 03/14/21 23:00 03/23/21 13:44 DC 03/23/21 13:34 Vitamin D (Vitamin D3) 50,000 unit QWE PO 03/20/21 16:00 04/10/21 17:15 Ferrous Sulfate (Feosol) 325 mg BID PO 03/15/21 09:00 04/12/21 20:48 Furosemide (Lasix) 20 mg DAILY PO 03/15/21 09:00 04/02/21 15:34 DC 04/02/21 08:37 Gabapentin (Neurontin Oral Soln) 150 mg BID@1400,2200 PO 03/14/21 23:00 03/16/21 13:20 DC 03/14/21 23:14 Lisinopril (Prinivil) 10 mg DAILY PO 03/15/21 09:00 04/12/21 08:17 Metformin HCl (Glucophage) 500 mg BIDWMEALS PO 03/15/21 08:00 04/12/21 17:06 Metoprolol Tartrate (Lopressor) 12.5 mg BID PO 03/14/21 23:00 04/12/21 20:47 Tramadol HCl (Ultram) 50 mg PRN Q6HRS PRN PO MOD-SEV PAIN 03/14/21 21:45 04/12/21 20:56 Celecoxib (CeleBREX) 200 mg DAILY PO 03/15/21 09:00 04/12/21 08:15 Lactobacillus Rhamnosus (Culturelle) 1 cap BID PO 03/14/21 23:00 04/12/21 20:48 Pantoprazole Sodium (Protonix) 40 mg DAILY PO 03/15/21 09:00 04/12/21 08:15 Potassium Chloride (Klor-Con) 10 meq DAILY PO 03/15/21 09:00 04/12/21 08:16 Trolamine Salicylate (Myoplex) 1 shwetha TID TP 03/15/21 09:00 04/12/21 20:49 Benztropine Mesylate (Cogentin) 1 mg BID PO 03/14/21 23:00 04/12/21 20:47 Clonazepam (KlonoPIN) 2 mg BID PO 03/14/21 23:00 03/16/21 16:48 DC 03/16/21 09:00 Divalproex Sodium (Depakote Er) 1,000 mg BID PO 03/14/21 23:00 04/12/21 20:49 Fluphenazine HCl (Prolixin) 15 mg BID PO 03/14/21 23:00 04/12/21 20:48 Lorazepam (Ativan) 1 mg TID PO 03/14/21 23:00 03/16/21 18:45 DC 03/16/21 14:00 Risperidone (RisperDAL) 2 mg DAILY@1400 PO 03/15/21 14:00 04/12/21 14:10 Risperidone (RisperDAL) 4 mg QHS PO 03/14/21 23:00 04/12/21 20:49 Nicotine (Nicoderm Cq 21mg Patch) 1 patch DAILY TD 03/15/21 09:00 04/12/21 08:18 Gabapentin (Neurontin) 100 mg TID PO 03/16/21 14:00 04/12/21 20:49 Ropinirole HCl (Requip) 0.5 mg TID PO 03/16/21 21:00 04/05/21 17:12 DC 04/05/21 09:01 Clonazepam (KlonoPIN) 2 mg HS PO 03/16/21 21:00 03/19/21 21:01 DC 03/18/21 21:13 Clonazepam (KlonoPIN) 1.5 mg DAILY PO 03/17/21 09:00 03/23/21 08:00 DC 03/22/21 08:04 Clonazepam (KlonoPIN) 1 mg DAILY PO 03/23/21 09:00 03/26/21 15:27 DC 03/26/21 08:33 Clonazepam (KlonoPIN) 0.5 mg DAILY PO 03/29/21 09:00 03/26/21 15:27 DC Clonazepam (KlonoPIN) 1.5 mg HS PO 03/20/21 21:00 03/25/21 21:01 DC 03/25/21 19:56 Clonazepam (KlonoPIN) 1 mg QHS PO 03/26/21 21:00 03/26/21 15:27 DC Clonazepam (KlonoPIN) 0.5 mg HS PO 04/01/21 21:00 03/26/21 15:27 DC Lorazepam (Ativan) 1 mg BID PO 03/17/21 21:00 03/19/21 21:01 DC 03/19/21 08:13 Lorazepam (Ativan) 1 mg DAILY PO 03/20/21 09:00 03/22/21 08:59 DC 03/21/21 08:36 Clonazepam (KlonoPIN) 0.5 mg DAILY PO 03/27/21 09:00 03/28/21 21:00 DC 03/28/21 08:28 Clozapine (Clozaril) 25 mg HS PO 03/29/21 21:00 04/01/21 16:44 DC 03/31/21 20:26 Clozapine (Clozaril) 50 mg HS PO 04/01/21 21:00 04/08/21 16:58 DC 04/07/21 20:08 Ropinirole HCl (Requip) 1 mg HS PO 04/05/21 21:00 04/12/21 20:48 Clozapine (Clozaril) 75 mg HS PO 04/08/21 21:00 04/12/21 20:48 I have reviewed the current psychotropics carefully including drug interactions. Risk benefit ratio favors no change other than as noted in my dictated progress note. Diagnosis: Problems: (1) Anxiety disorder (2) Impulse control disorder (3) Schizoaffective disorder, chronic condition with acute exacerbation BESSIE SOLORIO MD Apr 12, 2021 21:57
--- NOTE | 2021-04-12 23:59 | NUR ---
Patient is in her room for assessments and medication, awake in bed. She is disorganized, flat and delusional. She asked this nurse "The bugs are all over my back, eating me, and Dr. Maher just doesn't care." She was compliant with assessments and medications. She requested to have PRN Tramadol at HS for "leg and muscle pain from the bugs." Good effect. Appears to be sleeping comfortably at present time. Will continue to monitor.
[2021-04-13 05:51] VITALS: BP 114/72
[2021-04-13] MEDS: metFORMIN 500 MG TABLET PO SCH ×2 (08:36→17:36)
[2021-04-13] MEDS: ATORVASTATIN CALCIUM 20 MG TABLET PO SCH (08:36)
[2021-04-13] MEDS: LACTOBACILLUS RHAMNOSUS GG 1 CAPSULE. PO SCH ×2 (08:36→20:16)
[2021-04-13] MEDS: FERROUS SULFATE 325 MG TABLET. PO SCH ×2 (08:36→20:16)
[2021-04-13] MEDS: ASCORBIC ACID 500 MG TABLET PO SCH ×2 (08:36→20:17)
[2021-04-13] MEDS: DIVALPROEX ER 500 MG TAB.ER.24H PO SCH ×2 (08:36→20:18)
[2021-04-13] MEDS: PANTOPRAZOLE 40 MG TABLET. PO SCH (08:36)
[2021-04-13] MEDS: POTASSIUM CHLORIDE 10 MEQ TABLET.ER. PO SCH (08:36)
[2021-04-13] MEDS: CELECOXIB 100 MG CAPSULE PO SCH (08:36)
[2021-04-13] MEDS: ASPIRIN CHEWABLE 81 MG TABLET. PO SCH (08:37)
[2021-04-13] MEDS: BENZTROPINE MESYLATE 1 MG TABLET PO SCH ×2 (08:37→20:16)
[2021-04-13] MEDS: METOPROLOL TART IMMED RELEASE 25 MG TABLET. PO SCH ×2 (08:37→20:17)
[2021-04-13] MEDS: GABAPENTIN 100 MG CAPSULE. PO SCH ×3 (08:37→20:16)
[2021-04-13] MEDS: LISINOPRIL 10 MG TABLET PO SCH (08:37)
[2021-04-13] MEDS: NICOTINE 21MG PATCH. TD SCH (08:38)
[2021-04-13] MEDS: TROLAMINE SALICYLATE 10% TOPICAL CREAM 85GM JAR. TP SCH ×3 (08:40→20:18)
--- NOTE | 2021-04-13 08:44 | PDOC ---
Exam Note: Timothy Note: This note is a late entry for 04/11/2021 covers elements not covered in my initial note. Subjective: The patient was seen individually in the morning of 04/11/2021 for a treatment team meeting with Jennifer Hill, Sharon Rivera (director social welfare), Mar, activity therapy and Paul DORAN, discussed and reviewed the chart. Discussed her progress, current psychotropics, reviewed drug interactions, risk-benefit ratio. She slept 7-1/4 hours previous night. Previous evening she was fairly quiet, but then she was talking to nair and seemed to be hallucinating. We are gradually increasing the Clozaril to control this and we will plan to reduce the Risperdal and perhaps Prolixin at that stage. Valproic acid level therapeutic at 84. Review of Systems: Ambulation impaired in wheelchair. No CV, , pulmonary, eye, ENT system symptoms on review. Mental Status Exam: The patient is awake, alert and oriented. I met with her in the dayroom. She was cooperative but a little abrasive, still paranoid, delusional, but again better than before, somewhat distractible. Speech coherent at times pressured. Abstraction fair. Computation impaired. Language function intact. No suicidal or homicidal ideation. Laboratory Data: Reviewed. Impression: Schizoaffective disorder bipolar type, mixed with psychotic features. Anxiety disorder unspecified. Impulse control disorder unspecified. Plan: No change from initial note. We will continue to gradually increase the Clozaril. Assessment: Vital Signs/I&O: Vital Signs Date Time Temp Pulse Resp B/P (MAP) Pulse Ox O2 Delivery O2 Flow Rate FiO2 04/13/21 08:37 68 114/72 04/13/21 05:51 97.3 18 96 Room Air I & O 04/12/21 04/12/21 04/13/21 15:00 23:00 07:00 Intake Total 560 ml 600 ml Balance 560 ml 600 ml Current Medications: Meds: Current Medications Medications (Trade) Dose Ordered Sig/Arnold Route PRN Reason Start Time Stop Time Status Last Admin Dose Admin Acetaminophen (Tylenol) 650 mg PRN Q6HRS PRN PO MILD PAIN / TEMP > 100.3'F 03/14/21 20:45 03/17/21 15:50 Multi-Ingredient Ointment (Analgesic [place]) 1 shwetha PRN QID PRN TP MUSCLE PAIN 03/14/21 20:45 Al Hydroxide/Mg Hydroxide (Mylanta Plus Xs) 15 ml PRN AFTMEALHC PRN PO DYSPEPSIA 03/14/21 20:45 Magnesium Hydroxide (Milk Of Magnesia) 2,400 mg PRN QHS PRN PO CONSTIPATION 03/14/21 20:45 Acetaminophen (Tylenol) 650 mg TID PRN PO Back Pain 03/14/21 21:45 UNV Ascorbic Acid (Vitamin C) 500 mg BID PO 03/15/21 09:00 04/13/21 08:36 Aspirin (Aspirin Chewable) 81 mg DAILY PO 03/15/21 09:00 04/13/21 08:37 Atorvastatin Calcium (Lipitor) 20 mg DAILY PO 03/15/21 09:00 04/13/21 08:36 Carbidopa/Levodopa (Sinemet 10/100) 1 tab TID PO 03/14/21 23:00 03/23/21 13:44 DC 03/23/21 13:34 Vitamin D (Vitamin D3) 50,000 unit QWE PO 03/20/21 16:00 04/10/21 17:15 Ferrous Sulfate (Feosol) 325 mg BID PO 03/15/21 09:00 04/13/21 08:36 Furosemide (Lasix) 20 mg DAILY PO 03/15/21 09:00 04/02/21 15:34 DC 04/02/21 08:37 Gabapentin (Neurontin Oral Soln) 150 mg BID@1400,2200 PO 03/14/21 23:00 03/16/21 13:20 DC 03/14/21 23:14 Lisinopril (Prinivil) 10 mg DAILY PO 03/15/21 09:00 04/13/21 08:37 Metformin HCl (Glucophage) 500 mg BIDWMEALS PO 03/15/21 08:00 04/13/21 08:36 Metoprolol Tartrate (Lopressor) 12.5 mg BID PO 03/14/21 23:00 04/13/21 08:37 Tramadol HCl (Ultram) 50 mg PRN Q6HRS PRN PO MOD-SEV PAIN 03/14/21 21:45 04/12/21 20:56 Celecoxib (CeleBREX) 200 mg DAILY PO 03/15/21 09:00 04/13/21 08:36 Lactobacillus Rhamnosus (Culturelle) 1 cap BID PO 03/14/21 23:00 04/13/21 08:36 Pantoprazole Sodium (Protonix) 40 mg DAILY PO 03/15/21 09:00 04/13/21 08:36 Potassium Chloride (Klor-Con) 10 meq DAILY PO 03/15/21 09:00 04/13/21 08:36 Trolamine Salicylate (Myoplex) 1 shwetha TID TP 03/15/21 09:00 04/12/21 20:49 Benztropine Mesylate (Cogentin) 1 mg BID PO 03/14/21 23:00 04/13/21 08:37 Clonazepam (KlonoPIN) 2 mg BID PO 03/14/21 23:00 03/16/21 16:48 DC 03/16/21 09:00 Divalproex Sodium (Depakote Er) 1,000 mg BID PO 03/14/21 23:00 04/13/21 08:36 Fluphenazine HCl (Prolixin) 15 mg BID PO 03/14/21 23:00 04/13/21 08:36 Lorazepam (Ativan) 1 mg TID PO 03/14/21 23:00 03/16/21 18:45 DC 03/16/21 14:00 Risperidone (RisperDAL) 2 mg DAILY@1400 PO 03/15/21 14:00 04/12/21 14:10 Risperidone (RisperDAL) 4 mg QHS PO 03/14/21 23:00 04/12/21 20:49 Nicotine (Nicoderm Cq 21mg Patch) 1 patch DAILY TD 03/15/21 09:00 04/13/21 08:38 Gabapentin (Neurontin) 100 mg TID PO 03/16/21 14:00 04/13/21 08:37 Ropinirole HCl (Requip) 0.5 mg TID PO 03/16/21 21:00 04/05/21 17:12 DC 04/05/21 09:01 Clonazepam (KlonoPIN) 2 mg HS PO 03/16/21 21:00 03/19/21 21:01 DC 03/18/21 21:13 Clonazepam (KlonoPIN) 1.5 mg DAILY PO 03/17/21 09:00 03/23/21 08:00 DC 03/22/21 08:04 Clonazepam (KlonoPIN) 1 mg DAILY PO 03/23/21 09:00 03/26/21 15:27 DC 03/26/21 08:33 Clonazepam (KlonoPIN) 0.5 mg DAILY PO 03/29/21 09:00 03/26/21 15:27 DC Clonazepam (KlonoPIN) 1.5 mg HS PO 03/20/21 21:00 03/25/21 21:01 DC 03/25/21 19:56 Clonazepam (KlonoPIN) 1 mg QHS PO 03/26/21 21:00 03/26/21 15:27 DC Clonazepam (KlonoPIN) 0.5 mg HS PO 04/01/21 21:00 03/26/21 15:27 DC Lorazepam (Ativan) 1 mg BID PO 03/17/21 21:00 03/19/21 21:01 DC 03/19/21 08:13 Lorazepam (Ativan) 1 mg DAILY PO 03/20/21 09:00 03/22/21 08:59 DC 03/21/21 08:36 Clonazepam (KlonoPIN) 0.5 mg DAILY PO 03/27/21 09:00 03/28/21 21:00 DC 03/28/21 08:28 Clozapine (Clozaril) 25 mg HS PO 03/29/21 21:00 04/01/21 16:44 DC 03/31/21 20:26 Clozapine (Clozaril) 50 mg HS PO 04/01/21 21:00 04/08/21 16:58 DC 04/07/21 20:08 Ropinirole HCl (Requip) 1 mg HS PO 04/05/21 21:00 04/12/21 20:48 Clozapine (Clozaril) 75 mg HS PO 04/08/21 21:00 04/12/21 20:48 I have reviewed the current psychotropics carefully including drug interactions. Risk benefit ratio favors no change other than as noted in my dictated progress note. Diagnosis: Problems: (1) Anxiety disorder (2) Impulse control disorder (3) Schizoaffective disorder, chronic condition with acute exacerbation BESSIE SOLORIO MD Apr 13, 2021 08:44
[2021-04-13] MEDS: risperiDONE 2 MG TABLET. PO SCH ×2 (13:31→20:18)
[2021-04-13 16:12] VITALS: BP 127/72
--- NOTE | 2021-04-13 18:14 | NUR ---
NSG NOTE; cindy has been delusional today stating that "the people are out to get me" but can't explain any further. she took all her meds on time today without arguing about them being "too "much"
[2021-04-13] MEDS: rOPINIRole 1 MG TABLET. PO SCH (20:16)
[2021-04-13] MEDS: cloZAPine 25 MG TABLET PO SCH (20:18)
[2021-04-13] MEDS: traMADol 50 MG TABLET PO PRN (20:21)
--- NOTE | 2021-04-13 21:59 | PDOC ---
Exam Note: Timothy Note: Please also refer to the separate dictated note~for this date of service dictated separately.~Patient seen individually. Discussed the patient with Nursing staff reviewed the chart.~Reviewed interim history and current functioning. Reviewed vital signs,~Labs/ Radiology~and current medications noted below. Continue current treatment with the changes noted in the dictated addendum note Assessment: Vital Signs/I&O: Vital Signs Date Time Temp Pulse Resp B/P (MAP) Pulse Ox O2 Delivery O2 Flow Rate FiO2 04/13/21 21:24 93 04/13/21 20:17 90 127/72 04/13/21 16:12 98.6 16 04/13/21 05:51 Room Air I & O 04/12/21 04/12/21 04/13/21 15:00 23:00 07:00 Intake Total 560 ml 600 ml Balance 560 ml 600 ml Current Medications: Meds: Current Medications Medications (Trade) Dose Ordered Sig/Arnold Route PRN Reason Start Time Stop Time Status Last Admin Dose Admin Acetaminophen (Tylenol) 650 mg PRN Q6HRS PRN PO MILD PAIN / TEMP > 100.3'F 03/14/21 20:45 03/17/21 15:50 Multi-Ingredient Ointment (Analgesic [place]) 1 shwetha PRN QID PRN TP MUSCLE PAIN 03/14/21 20:45 Al Hydroxide/Mg Hydroxide (Mylanta Plus Xs) 15 ml PRN AFTMEALHC PRN PO DYSPEPSIA 03/14/21 20:45 Magnesium Hydroxide (Milk Of Magnesia) 2,400 mg PRN QHS PRN PO CONSTIPATION 03/14/21 20:45 Acetaminophen (Tylenol) 650 mg TID PRN PO Back Pain 03/14/21 21:45 UNV Ascorbic Acid (Vitamin C) 500 mg BID PO 03/15/21 09:00 04/13/21 20:17 Aspirin (Aspirin Chewable) 81 mg DAILY PO 03/15/21 09:00 04/13/21 08:37 Atorvastatin Calcium (Lipitor) 20 mg DAILY PO 03/15/21 09:00 04/13/21 08:36 Carbidopa/Levodopa (Sinemet 10/100) 1 tab TID PO 03/14/21 23:00 03/23/21 13:44 DC 03/23/21 13:34 Vitamin D (Vitamin D3) 50,000 unit QWE PO 03/20/21 16:00 04/10/21 17:15 Ferrous Sulfate (Feosol) 325 mg BID PO 03/15/21 09:00 04/13/21 20:16 Furosemide (Lasix) 20 mg DAILY PO 03/15/21 09:00 04/02/21 15:34 DC 04/02/21 08:37 Gabapentin (Neurontin Oral Soln) 150 mg BID@1400,2200 PO 03/14/21 23:00 03/16/21 13:20 DC 03/14/21 23:14 Lisinopril (Prinivil) 10 mg DAILY PO 03/15/21 09:00 04/13/21 08:37 Metformin HCl (Glucophage) 500 mg BIDWMEALS PO 03/15/21 08:00 04/13/21 17:36 Metoprolol Tartrate (Lopressor) 12.5 mg BID PO 03/14/21 23:00 04/13/21 20:17 Tramadol HCl (Ultram) 50 mg PRN Q6HRS PRN PO MOD-SEV PAIN 03/14/21 21:45 04/13/21 20:21 Celecoxib (CeleBREX) 200 mg DAILY PO 03/15/21 09:00 04/13/21 08:36 Lactobacillus Rhamnosus (Culturelle) 1 cap BID PO 03/14/21 23:00 04/13/21 20:16 Pantoprazole Sodium (Protonix) 40 mg DAILY PO 03/15/21 09:00 04/13/21 08:36 Potassium Chloride (Klor-Con) 10 meq DAILY PO 03/15/21 09:00 04/13/21 08:36 Trolamine Salicylate (Myoplex) 1 shwetha TID TP 03/15/21 09:00 04/13/21 20:18 Benztropine Mesylate (Cogentin) 1 mg BID PO 03/14/21 23:00 04/13/21 20:16 Clonazepam (KlonoPIN) 2 mg BID PO 03/14/21 23:00 03/16/21 16:48 DC 03/16/21 09:00 Divalproex Sodium (Depakote Er) 1,000 mg BID PO 03/14/21 23:00 04/13/21 20:18 Fluphenazine HCl (Prolixin) 15 mg BID PO 03/14/21 23:00 04/13/21 17:20 DC 04/13/21 08:36 Lorazepam (Ativan) 1 mg TID PO 03/14/21 23:00 03/16/21 18:45 DC 03/16/21 14:00 Risperidone (RisperDAL) 2 mg DAILY@1400 PO 03/15/21 14:00 04/13/21 13:31 Risperidone (RisperDAL) 4 mg QHS PO 03/14/21 23:00 04/13/21 20:18 Nicotine (Nicoderm Cq 21mg Patch) 1 patch DAILY TD 03/15/21 09:00 04/13/21 08:38 Gabapentin (Neurontin) 100 mg TID PO 03/16/21 14:00 04/13/21 20:16 Ropinirole HCl (Requip) 0.5 mg TID PO 03/16/21 21:00 04/05/21 17:12 DC 04/05/21 09:01 Clonazepam (KlonoPIN) 2 mg HS PO 03/16/21 21:00 03/19/21 21:01 DC 03/18/21 21:13 Clonazepam (KlonoPIN) 1.5 mg DAILY PO 03/17/21 09:00 03/23/21 08:00 DC 03/22/21 08:04 Clonazepam (KlonoPIN) 1 mg DAILY PO 03/23/21 09:00 03/26/21 15:27 DC 03/26/21 08:33 Clonazepam (KlonoPIN) 0.5 mg DAILY PO 03/29/21 09:00 03/26/21 15:27 DC Clonazepam (KlonoPIN) 1.5 mg HS PO 03/20/21 21:00 03/25/21 21:01 DC 03/25/21 19:56 Clonazepam (KlonoPIN) 1 mg QHS PO 03/26/21 21:00 03/26/21 15:27 DC Clonazepam (KlonoPIN) 0.5 mg HS PO 04/01/21 21:00 03/26/21 15:27 DC Lorazepam (Ativan) 1 mg BID PO 03/17/21 21:00 03/19/21 21:01 DC 03/19/21 08:13 Lorazepam (Ativan) 1 mg DAILY PO 03/20/21 09:00 03/22/21 08:59 DC 03/21/21 08:36 Clonazepam (KlonoPIN) 0.5 mg DAILY PO 03/27/21 09:00 03/28/21 21:00 DC 03/28/21 08:28 Clozapine (Clozaril) 25 mg HS PO 03/29/21 21:00 04/01/21 16:44 DC 03/31/21 20:26 Clozapine (Clozaril) 50 mg HS PO 04/01/21 21:00 04/08/21 16:58 DC 04/07/21 20:08 Ropinirole HCl (Requip) 1 mg HS PO 04/05/21 21:00 04/13/21 20:16 Clozapine (Clozaril) 75 mg HS PO 04/08/21 21:00 04/13/21 20:18 Fluphenazine HCl (Prolixin) 15 mg HS PO 04/13/21 21:00 04/13/21 20:18 Fluphenazine HCl (Prolixin) 10 mg DAILY PO 04/14/21 09:00 Current Medications Medications (Trade) Dose Ordered Sig/Arnold Route PRN Reason Start Time Stop Time Status Last Admin Dose Admin Fluphenazine HCl (Prolixin) 15 mg HS PO 04/13/21 21:00 04/13/21 20:18 I have reviewed the current psychotropics carefully including drug interactions. Risk benefit ratio favors no change other than as noted in my dictated progress note. Diagnosis: Problems: (1) Anxiety disorder (2) Impulse control disorder (3) Schizoaffective disorder, chronic condition with acute exacerbation BESSIE SOLORIO MD Apr 13, 2021 21:59
--- NOTE | 2021-04-13 23:28 | NUR ---
Pt sitting in dayroom this evening. 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. Pt compliant with whole medications, however resistive, stating there were too many pills and they were going to kill her. PRN Tramadol administered with HS medications per pt request.
[2021-04-14 05:33] VITALS: BP 125/69
[2021-04-14] MEDS: LACTOBACILLUS RHAMNOSUS GG 1 CAPSULE. PO SCH ×2 (08:24→20:43)
[2021-04-14] MEDS: metFORMIN 500 MG TABLET PO SCH ×2 (08:24→17:30)
[2021-04-14] MEDS: DIVALPROEX ER 500 MG TAB.ER.24H PO SCH ×2 (08:24→20:43)
[2021-04-14] MEDS: FERROUS SULFATE 325 MG TABLET. PO SCH ×2 (08:24→20:43)
[2021-04-14] MEDS: ASPIRIN CHEWABLE 81 MG TABLET. PO SCH (08:24)
[2021-04-14] MEDS: GABAPENTIN 100 MG CAPSULE. PO SCH ×3 (08:24→20:43)
[2021-04-14] MEDS: ASCORBIC ACID 500 MG TABLET PO SCH ×2 (08:24→20:43)
[2021-04-14] MEDS: BENZTROPINE MESYLATE 1 MG TABLET PO SCH ×2 (08:25→20:43)
[2021-04-14] MEDS: CELECOXIB 100 MG CAPSULE PO SCH (08:25)
[2021-04-14] MEDS: ATORVASTATIN CALCIUM 20 MG TABLET PO SCH (08:25)
[2021-04-14] MEDS: METOPROLOL TART IMMED RELEASE 25 MG TABLET. PO SCH ×2 (08:25→20:44)
[2021-04-14] MEDS: PANTOPRAZOLE 40 MG TABLET. PO SCH (08:25)
[2021-04-14] MEDS: POTASSIUM CHLORIDE 10 MEQ TABLET.ER. PO SCH (08:25)
[2021-04-14] MEDS: LISINOPRIL 10 MG TABLET PO SCH (08:26)
[2021-04-14] MEDS: NICOTINE 21MG PATCH. TD SCH (08:27)
--- NOTE | 2021-04-14 08:55 | PDOC ---
Exam Note: Timothy Note: This note is a late entry for 04/12/2021 covers elements not covered in my initial note. Subjective: The patient was seen individually in the evening of 04/12/2021 with Bren DORAN, discussed and reviewed the chart. She slept 7-1/2 hours previous night. I met with her in her room. The patient was quite psychotic in the morning but compliant with medications making statements that those people talk about me. This was around lunch time. She did take all her medications. At times she made statements that the medications are poisoning her but when I questioned her closely it appears she is referring to the tremors and extrapyramidal side effects she is having from these which we are monitoring and we will be reducing Prolixin just as soon as the Clozaril is a little more reasonable in dosage. She was in the dayroom for part of the day. Review of Systems: Ambulation impaired in wheelchair. No CV, , pulmonary, eye, ENT system symptoms on review. Mental Status Exam: The patient is awake, alert and oriented. She was a little more appropriate in her conversation, less paranoid as I met with her accepting of the diagnoses and medications that I discussed with her all of which is a slight improvement. Speech coherent at times pressured. Abstraction fair. Computation impaired. Language function intact. No suicidal or homicidal ideation. Laboratory Data: Reviewed. Impression: Schizoaffective disorder bipolar type, mixed with psychotic features. Anxiety disorder unspecified. Impulse control disorder unspecified. Plan: No change from initial note. Assessment: Vital Signs/I&O: Vital Signs Date Time Temp Pulse Resp B/P (MAP) Pulse Ox O2 Delivery O2 Flow Rate FiO2 04/14/21 08:26 65 125/69 04/14/21 05:33 97.6 20 92 Room Air I & O 04/13/21 04/13/21 04/14/21 14:59 22:59 06:59 Intake Total 240 ml 480 ml Balance 240 ml 480 ml Current Medications: Meds: Current Medications Medications (Trade) Dose Ordered Sig/Arnold Route PRN Reason Start Time Stop Time Status Last Admin Dose Admin Acetaminophen (Tylenol) 650 mg PRN Q6HRS PRN PO MILD PAIN / TEMP > 100.3'F 03/14/21 20:45 03/17/21 15:50 Multi-Ingredient Ointment (Analgesic [place]) 1 shwetha PRN QID PRN TP MUSCLE PAIN 03/14/21 20:45 Al Hydroxide/Mg Hydroxide (Mylanta Plus Xs) 15 ml PRN AFTMEALHC PRN PO DYSPEPSIA 03/14/21 20:45 Magnesium Hydroxide (Milk Of Magnesia) 2,400 mg PRN QHS PRN PO CONSTIPATION 03/14/21 20:45 Acetaminophen (Tylenol) 650 mg TID PRN PO Back Pain 03/14/21 21:45 UNV Ascorbic Acid (Vitamin C) 500 mg BID PO 03/15/21 09:00 04/14/21 08:24 Aspirin (Aspirin Chewable) 81 mg DAILY PO 03/15/21 09:00 04/14/21 08:24 Atorvastatin Calcium (Lipitor) 20 mg DAILY PO 03/15/21 09:00 04/14/21 08:25 Carbidopa/Levodopa (Sinemet 10/100) 1 tab TID PO 03/14/21 23:00 03/23/21 13:44 DC 03/23/21 13:34 Vitamin D (Vitamin D3) 50,000 unit QWE PO 03/20/21 16:00 04/10/21 17:15 Ferrous Sulfate (Feosol) 325 mg BID PO 03/15/21 09:00 04/14/21 08:24 Furosemide (Lasix) 20 mg DAILY PO 03/15/21 09:00 04/02/21 15:34 DC 04/02/21 08:37 Gabapentin (Neurontin Oral Soln) 150 mg BID@1400,2200 PO 03/14/21 23:00 03/16/21 13:20 DC 03/14/21 23:14 Lisinopril (Prinivil) 10 mg DAILY PO 03/15/21 09:00 04/14/21 08:26 Metformin HCl (Glucophage) 500 mg BIDWMEALS PO 03/15/21 08:00 04/14/21 08:24 Metoprolol Tartrate (Lopressor) 12.5 mg BID PO 03/14/21 23:00 04/14/21 08:25 Tramadol HCl (Ultram) 50 mg PRN Q6HRS PRN PO MOD-SEV PAIN 03/14/21 21:45 04/13/21 20:21 Celecoxib (CeleBREX) 200 mg DAILY PO 03/15/21 09:00 04/14/21 08:25 Lactobacillus Rhamnosus (Culturelle) 1 cap BID PO 03/14/21 23:00 04/14/21 08:24 Pantoprazole Sodium (Protonix) 40 mg DAILY PO 03/15/21 09:00 04/14/21 08:25 Potassium Chloride (Klor-Con) 10 meq DAILY PO 03/15/21 09:00 04/14/21 08:25 Trolamine Salicylate (Myoplex) 1 shwetha TID TP 03/15/21 09:00 04/13/21 20:18 Benztropine Mesylate (Cogentin) 1 mg BID PO 03/14/21 23:00 04/14/21 08:25 Clonazepam (KlonoPIN) 2 mg BID PO 03/14/21 23:00 03/16/21 16:48 DC 03/16/21 09:00 Divalproex Sodium (Depakote Er) 1,000 mg BID PO 03/14/21 23:00 04/14/21 08:24 Fluphenazine HCl (Prolixin) 15 mg BID PO 03/14/21 23:00 04/13/21 17:20 DC 04/13/21 08:36 Lorazepam (Ativan) 1 mg TID PO 03/14/21 23:00 03/16/21 18:45 DC 03/16/21 14:00 Risperidone (RisperDAL) 2 mg DAILY@1400 PO 03/15/21 14:00 04/13/21 13:31 Risperidone (RisperDAL) 4 mg QHS PO 03/14/21 23:00 04/13/21 20:18 Nicotine (Nicoderm Cq 21mg Patch) 1 patch DAILY TD 03/15/21 09:00 04/14/21 08:27 Gabapentin (Neurontin) 100 mg TID PO 03/16/21 14:00 04/14/21 08:24 Ropinirole HCl (Requip) 0.5 mg TID PO 03/16/21 21:00 04/05/21 17:12 DC 04/05/21 09:01 Clonazepam (KlonoPIN) 2 mg HS PO 03/16/21 21:00 03/19/21 21:01 DC 03/18/21 21:13 Clonazepam (KlonoPIN) 1.5 mg DAILY PO 03/17/21 09:00 03/23/21 08:00 DC 03/22/21 08:04 Clonazepam (KlonoPIN) 1 mg DAILY PO 03/23/21 09:00 03/26/21 15:27 DC 03/26/21 08:33 Clonazepam (KlonoPIN) 0.5 mg DAILY PO 03/29/21 09:00 03/26/21 15:27 DC Clonazepam (KlonoPIN) 1.5 mg HS PO 03/20/21 21:00 03/25/21 21:01 DC 03/25/21 19:56 Clonazepam (KlonoPIN) 1 mg QHS PO 03/26/21 21:00 03/26/21 15:27 DC Clonazepam (KlonoPIN) 0.5 mg HS PO 04/01/21 21:00 03/26/21 15:27 DC Lorazepam (Ativan) 1 mg BID PO 03/17/21 21:00 03/19/21 21:01 DC 03/19/21 08:13 Lorazepam (Ativan) 1 mg DAILY PO 03/20/21 09:00 03/22/21 08:59 DC 03/21/21 08:36 Clonazepam (KlonoPIN) 0.5 mg DAILY PO 03/27/21 09:00 03/28/21 21:00 DC 03/28/21 08:28 Clozapine (Clozaril) 25 mg HS PO 03/29/21 21:00 04/01/21 16:44 DC 03/31/21 20:26 Clozapine (Clozaril) 50 mg HS PO 04/01/21 21:00 04/08/21 16:58 DC 04/07/21 20:08 Ropinirole HCl (Requip) 1 mg HS PO 04/05/21 21:00 04/13/21 20:16 Clozapine (Clozaril) 75 mg HS PO 04/08/21 21:00 04/13/21 20:18 Fluphenazine HCl (Prolixin) 15 mg HS PO 04/13/21 21:00 04/13/21 20:18 Fluphenazine HCl (Prolixin) 10 mg DAILY PO 04/14/21 09:00 04/14/21 08:27 Current Medications Medications (Trade) Dose Ordered Sig/Arnold Route PRN Reason Start Time Stop Time Status Last Admin Dose Admin Fluphenazine HCl (Prolixin) 15 mg HS PO 04/13/21 21:00 04/13/21 20:18 Fluphenazine HCl (Prolixin) 10 mg DAILY PO 04/14/21 09:00 04/14/21 08:27 I have reviewed the current psychotropics carefully including drug interactions. Risk benefit ratio favors no change other than as noted in my dictated progress note. Diagnosis: Problems: (1) Anxiety disorder (2) Impulse control disorder (3) Schizoaffective disorder, chronic condition with acute exacerbation BESSIE SOLORIO MD Apr 14, 2021 08:55
[2021-04-14] MEDS: TROLAMINE SALICYLATE 10% TOPICAL CREAM 85GM JAR. TP SCH ×3 (09:00→20:44)
[2021-04-14] MEDS: risperiDONE 2 MG TABLET. PO SCH ×2 (12:28→20:43)
--- NOTE | 2021-04-14 16:02 | NUR ---
Nurses note Patient has had an uneventful shift. Denies hallucinations. No delusions so far today. Patient has been medication c ompliant and pleasant during interactions.
[2021-04-14 16:03] VITALS: BP 98/62
[2021-04-14] MEDS: traMADol 50 MG TABLET PO PRN (17:53)
[2021-04-14] MEDS: cloZAPine 25 MG TABLET PO SCH (20:43)
[2021-04-14] MEDS: rOPINIRole 1 MG TABLET. PO SCH (20:43)
--- NOTE | 2021-04-14 21:58 | PDOC ---
Exam Note: Timothy Note: Please also refer to the separate dictated note~for this date of service dictated separately.~Patient seen individually. Discussed the patient with Nursing staff reviewed the chart.~Reviewed interim history and current functioning. Reviewed vital signs,~Labs/ Radiology~and current medications noted below. Continue current treatment with the changes noted in the dictated addendum note Assessment: Vital Signs/I&O: Vital Signs Date Time Temp Pulse Resp B/P (MAP) Pulse Ox O2 Delivery O2 Flow Rate FiO2 04/14/21 20:44 76 98/62 04/14/21 19:31 95 04/14/21 16:03 97.0 20 Room Air I & O 04/13/21 04/13/21 04/14/21 14:59 22:59 06:59 Intake Total 240 ml 480 ml Balance 240 ml 480 ml Current Medications: Meds: Current Medications Medications (Trade) Dose Ordered Sig/Arnold Route PRN Reason Start Time Stop Time Status Last Admin Dose Admin Acetaminophen (Tylenol) 650 mg PRN Q6HRS PRN PO MILD PAIN / TEMP > 100.3'F 03/14/21 20:45 03/17/21 15:50 Multi-Ingredient Ointment (Analgesic [place]) 1 shwetha PRN QID PRN TP MUSCLE PAIN 03/14/21 20:45 Al Hydroxide/Mg Hydroxide (Mylanta Plus Xs) 15 ml PRN AFTMEALHC PRN PO DYSPEPSIA 03/14/21 20:45 Magnesium Hydroxide (Milk Of Magnesia) 2,400 mg PRN QHS PRN PO CONSTIPATION 03/14/21 20:45 Acetaminophen (Tylenol) 650 mg TID PRN PO Back Pain 03/14/21 21:45 UNV Ascorbic Acid (Vitamin C) 500 mg BID PO 03/15/21 09:00 04/14/21 20:43 Aspirin (Aspirin Chewable) 81 mg DAILY PO 03/15/21 09:00 04/14/21 08:24 Atorvastatin Calcium (Lipitor) 20 mg DAILY PO 03/15/21 09:00 04/14/21 08:25 Carbidopa/Levodopa (Sinemet 10/100) 1 tab TID PO 03/14/21 23:00 03/23/21 13:44 DC 03/23/21 13:34 Vitamin D (Vitamin D3) 50,000 unit QWE PO 03/20/21 16:00 04/10/21 17:15 Ferrous Sulfate (Feosol) 325 mg BID PO 03/15/21 09:00 04/14/21 20:43 Furosemide (Lasix) 20 mg DAILY PO 03/15/21 09:00 04/02/21 15:34 DC 04/02/21 08:37 Gabapentin (Neurontin Oral Soln) 150 mg BID@1400,2200 PO 03/14/21 23:00 03/16/21 13:20 DC 03/14/21 23:14 Lisinopril (Prinivil) 10 mg DAILY PO 03/15/21 09:00 04/14/21 08:26 Metformin HCl (Glucophage) 500 mg BIDWMEALS PO 03/15/21 08:00 04/14/21 17:30 Metoprolol Tartrate (Lopressor) 12.5 mg BID PO 03/14/21 23:00 04/14/21 08:25 Tramadol HCl (Ultram) 50 mg PRN Q6HRS PRN PO MOD-SEV PAIN 03/14/21 21:45 04/14/21 17:53 Celecoxib (CeleBREX) 200 mg DAILY PO 03/15/21 09:00 04/14/21 08:25 Lactobacillus Rhamnosus (Culturelle) 1 cap BID PO 03/14/21 23:00 04/14/21 20:43 Pantoprazole Sodium (Protonix) 40 mg DAILY PO 03/15/21 09:00 04/14/21 08:25 Potassium Chloride (Klor-Con) 10 meq DAILY PO 03/15/21 09:00 04/14/21 08:25 Trolamine Salicylate (Myoplex) 1 shwetha TID TP 03/15/21 09:00 04/14/21 20:44 Benztropine Mesylate (Cogentin) 1 mg BID PO 03/14/21 23:00 04/14/21 20:43 Clonazepam (KlonoPIN) 2 mg BID PO 03/14/21 23:00 03/16/21 16:48 DC 03/16/21 09:00 Divalproex Sodium (Depakote Er) 1,000 mg BID PO 03/14/21 23:00 04/14/21 20:43 Fluphenazine HCl (Prolixin) 15 mg BID PO 03/14/21 23:00 04/13/21 17:20 DC 04/13/21 08:36 Lorazepam (Ativan) 1 mg TID PO 03/14/21 23:00 03/16/21 18:45 DC 03/16/21 14:00 Risperidone (RisperDAL) 2 mg DAILY@1400 PO 03/15/21 14:00 04/14/21 12:28 Risperidone (RisperDAL) 4 mg QHS PO 03/14/21 23:00 04/14/21 20:43 Nicotine (Nicoderm Cq 21mg Patch) 1 patch DAILY TD 03/15/21 09:00 04/14/21 08:27 Gabapentin (Neurontin) 100 mg TID PO 03/16/21 14:00 04/14/21 20:43 Ropinirole HCl (Requip) 0.5 mg TID PO 03/16/21 21:00 04/05/21 17:12 DC 04/05/21 09:01 Clonazepam (KlonoPIN) 2 mg HS PO 03/16/21 21:00 03/19/21 21:01 DC 03/18/21 21:13 Clonazepam (KlonoPIN) 1.5 mg DAILY PO 03/17/21 09:00 03/23/21 08:00 DC 03/22/21 08:04 Clonazepam (KlonoPIN) 1 mg DAILY PO 03/23/21 09:00 03/26/21 15:27 DC 03/26/21 08:33 Clonazepam (KlonoPIN) 0.5 mg DAILY PO 03/29/21 09:00 03/26/21 15:27 DC Clonazepam (KlonoPIN) 1.5 mg HS PO 03/20/21 21:00 03/25/21 21:01 DC 03/25/21 19:56 Clonazepam (KlonoPIN) 1 mg QHS PO 03/26/21 21:00 03/26/21 15:27 DC Clonazepam (KlonoPIN) 0.5 mg HS PO 04/01/21 21:00 03/26/21 15:27 DC Lorazepam (Ativan) 1 mg BID PO 03/17/21 21:00 03/19/21 21:01 DC 03/19/21 08:13 Lorazepam (Ativan) 1 mg DAILY PO 03/20/21 09:00 03/22/21 08:59 DC 03/21/21 08:36 Clonazepam (KlonoPIN) 0.5 mg DAILY PO 03/27/21 09:00 03/28/21 21:00 DC 03/28/21 08:28 Clozapine (Clozaril) 25 mg HS PO 03/29/21 21:00 04/01/21 16:44 DC 03/31/21 20:26 Clozapine (Clozaril) 50 mg HS PO 04/01/21 21:00 04/08/21 16:58 DC 04/07/21 20:08 Ropinirole HCl (Requip) 1 mg HS PO 04/05/21 21:00 04/14/21 20:43 Clozapine (Clozaril) 75 mg HS PO 04/08/21 21:00 04/14/21 20:43 Fluphenazine HCl (Prolixin) 15 mg HS PO 04/13/21 21:00 04/14/21 20:43 Fluphenazine HCl (Prolixin) 10 mg DAILY PO 04/14/21 09:00 04/14/21 08:27 Current Medications Medications (Trade) Dose Ordered Sig/Arnold Route PRN Reason Start Time Stop Time Status Last Admin Dose Admin Fluphenazine HCl (Prolixin) 10 mg DAILY PO 04/14/21 09:00 04/14/21 08:27 I have reviewed the current psychotropics carefully including drug interactions. Risk benefit ratio favors no change other than as noted in my dictated progress note. Diagnosis: Problems: (1) Anxiety disorder (2) Impulse control disorder (3) Schizoaffective disorder, chronic condition with acute exacerbation BESSIE SOLORIO MD Apr 14, 2021 21:58
--- NOTE | 2021-04-14 23:25 | NUR ---
Pt laying in bed all evening. Pt resistive to medications and helpless. Pt compliant with whole medications after stating "This is too much. You are trying to kill me."
[2021-04-15 05:38] VITALS: BP 130/79
[2021-04-15 07:17] LABS: BASO # 0.1 x10^3/uL (0.0-0.2); BASO % 0 % (0-3); EOS # 0.2 x10^3/uL (0.0-0.7); EOS % 2 % (0-3); HEMATOCRIT 31.3 % (36.0-47.0); HEMOGLOBIN 10.5 g/dL (12.0-15.5); LYMPH # 2.8 x10^3/uL (1.0-4.8); LYMPH % 22 % (24-48); MEAN CORPUSCULAR HEMOGLOBIN 31 pg (25-35); MEAN CORPUSCULAR HGB CONC 34 g/dL (31-37); MEAN CORPUSCULAR VOLUME 92 fL (79-100); MONO # 1.4 x10^3/uL (0.0-1.1); MONO % 11 % (0-9); NEUT # 8.2 x10^3uL (1.8-7.7); NEUT % 65 % (31-73); PLATELET COUNT 204 x10^3/uL (140-400); WHITE BLOOD COUNT 12.6 x10^3/uL (4.0-11.0)
[2021-04-15 07:39] LABS: ALBUMIN 2.6 g/dL (3.4-5.0); ALBUMIN/GLOBULIN RATIO 0.7 (1.0-1.7); CALCIUM 8.9 mg/dL (8.5-10.1); CREATININE 0.7 mg/dL (0.6-1.0); GFR 86.6; POTASSIUM 4.7 mmol/L (3.5-5.1); TOTAL BILIRUBIN 0.2 mg/dL (0.2-1.0); TOTAL PROTEIN 6.3 g/dL (6.4-8.2)
[2021-04-15] MEDS: POTASSIUM CHLORIDE 10 MEQ TABLET.ER. PO SCH (08:28)
[2021-04-15] MEDS: LISINOPRIL 10 MG TABLET PO SCH (08:28)
[2021-04-15] MEDS: FERROUS SULFATE 325 MG TABLET. PO SCH ×2 (08:28→21:07)
[2021-04-15] MEDS: GABAPENTIN 100 MG CAPSULE. PO SCH ×3 (08:28→21:07)
[2021-04-15] MEDS: metFORMIN 500 MG TABLET PO SCH ×2 (08:29→17:21)
[2021-04-15] MEDS: LACTOBACILLUS RHAMNOSUS GG 1 CAPSULE. PO SCH ×2 (08:29→21:07)
[2021-04-15] MEDS: CELECOXIB 100 MG CAPSULE PO SCH (08:29)
[2021-04-15] MEDS: DIVALPROEX ER 500 MG TAB.ER.24H PO SCH ×2 (08:29→21:08)
[2021-04-15] MEDS: ATORVASTATIN CALCIUM 20 MG TABLET PO SCH (08:29)
[2021-04-15] MEDS: ASPIRIN CHEWABLE 81 MG TABLET. PO SCH (08:29)
[2021-04-15] MEDS: METOPROLOL TART IMMED RELEASE 25 MG TABLET. PO SCH ×2 (08:29→21:08)
[2021-04-15] MEDS: BENZTROPINE MESYLATE 1 MG TABLET PO SCH ×2 (08:29→21:07)
[2021-04-15] MEDS: ASCORBIC ACID 500 MG TABLET PO SCH ×2 (08:29→21:08)
[2021-04-15] MEDS: NICOTINE 21MG PATCH. TD SCH (08:30)
[2021-04-15] MEDS: PANTOPRAZOLE 40 MG TABLET. PO SCH (08:30)
[2021-04-15] MEDS: TROLAMINE SALICYLATE 10% TOPICAL CREAM 85GM JAR. TP SCH ×3 (08:35→21:00)
--- NOTE | 2021-04-15 09:03 | PDOC ---
Exam Note: Timothy Note: This note is a late entry for 04/13/2021 covers elements not covered in my initial note. Subjective: The patient was seen individually in the evening of 04/13/2021 with Bren DORAN, discussed and reviewed the chart. She slept 7-1/4 hours previous night. Previous night she was somewhat anxious, delusional, believing there were bugs on her back. She has been more compliant with her medications. She does complain of chronic pain, somewhat drowsy in the wheelchair. We had lengthy discussion that I will be reducing the Prolixin down from 15 mg twice a day to 10 mg a.m. and 15 mg h.s. She was very pleased with this. We discussed how hopefully her extrapyramidal side effects would improve with tremors improving as well as we increased the Clozaril and reduce the Prolixin. Review of Systems: Ambulation impaired in wheelchair. No CV, , pulmonary, eye, ENT system symptoms on review. Mental Status Exam: The patient is oriented to herself. Speech coherent. Abstraction fair. Computation impaired. Language function intact. Attention span short. Mood and affect anxious. No suicidal or homicidal ideation. Laboratory Data: Reviewed. Impression: Schizoaffective disorder bipolar type, mixed with psychotic features. Anxiety disorder unspecified. Impulse control disorder unspecified. Plan: No change from initial note. Assessment: Vital Signs/I&O: Vital Signs Date Time Temp Pulse Resp B/P (MAP) Pulse Ox O2 Delivery O2 Flow Rate FiO2 04/15/21 08:29 70 130/79 04/15/21 05:38 97.3 20 93 04/14/21 16:03 Room Air I & O 04/14/21 04/14/21 04/15/21 15:00 23:00 07:00 Intake Total 360 ml 240 ml 120 ml Balance 360 ml 240 ml 120 ml Labs: Laboratory Tests Test 04/15/21 06:50 White Blood Count 12.6 x10^3/uL (4.0-11.0) H Red Blood Count 3.40 x10^6/uL (3.50-5.40) L Hemoglobin 10.5 g/dL (12.0-15.5) L Hematocrit 31.3 % (36.0-47.0) L Mean Corpuscular Volume 92 fL (79-100) Mean Corpuscular Hemoglobin 31 pg (25-35) Mean Corpuscular Hemoglobin Concent 34 g/dL (31-37) Red Cell Distribution Width 15.0 % (11.5-14.5) H Platelet Count 204 x10^3/uL (140-400) Neutrophils (%) (Auto) 65 % (31-73) Lymphocytes (%) (Auto) 22 % (24-48) L Monocytes (%) (Auto) 11 % (0-9) H Eosinophils (%) (Auto) 2 % (0-3) Basophils (%) (Auto) 0 % (0-3) Neutrophils # (Auto) 8.2 x10^3uL (1.8-7.7) H Lymphocytes # (Auto) 2.8 x10^3/uL (1.0-4.8) Monocytes # (Auto) 1.4 x10^3/uL (0.0-1.1) H Eosinophils # (Auto) 0.2 x10^3/uL (0.0-0.7) Basophils # (Auto) 0.1 x10^3/uL (0.0-0.2) Platelet Estimate Pending Sodium Level 132 mmol/L (136-145) L Potassium Level 4.7 mmol/L (3.5-5.1) Chloride Level 95 mmol/L (98-107) L Carbon Dioxide Level 30 mmol/L (21-32) Anion Gap 7 (6-14) Blood Urea Nitrogen 13 mg/dL (7-20) Creatinine 0.7 mg/dL (0.6-1.0) Estimated GFR (Cockcroft-Gault) 86.6 BUN/Creatinine Ratio 19 (6-20) Glucose Level 100 mg/dL (70-99) H Calcium Level 8.9 mg/dL (8.5-10.1) Total Bilirubin 0.2 mg/dL (0.2-1.0) Aspartate Amino Transferase (AST) 6 U/L (15-37) L Alanine Aminotransferase (ALT) 10 U/L (14-59) L Alkaline Phosphatase 73 U/L (46-116) Total Protein 6.3 g/dL (6.4-8.2) L Albumin 2.6 g/dL (3.4-5.0) L Albumin/Globulin Ratio 0.7 (1.0-1.7) L Current Medications: Meds: Laboratory Tests Test 04/15/21 06:50 White Blood Count 12.6 x10^3/uL Red Blood Count 3.40 x10^6/uL Hemoglobin 10.5 g/dL Hematocrit 31.3 % Mean Corpuscular Volume 92 fL Mean Corpuscular Hemoglobin 31 pg Mean Corpuscular Hemoglobin Concent 34 g/dL Red Cell Distribution Width 15.0 % Platelet Count 204 x10^3/uL Neutrophils (%) (Auto) 65 % Lymphocytes (%) (Auto) 22 % Monocytes (%) (Auto) 11 % Eosinophils (%) (Auto) 2 % Basophils (%) (Auto) 0 % Neutrophils # (Auto) 8.2 x10^3uL Lymphocytes # (Auto) 2.8 x10^3/uL Monocytes # (Auto) 1.4 x10^3/uL Eosinophils # (Auto) 0.2 x10^3/uL Basophils # (Auto) 0.1 x10^3/uL Platelet Estimate Pending Sodium Level 132 mmol/L Potassium Level 4.7 mmol/L Chloride Level 95 mmol/L Carbon Dioxide Level 30 mmol/L Anion Gap 7 Blood Urea Nitrogen 13 mg/dL Creatinine 0.7 mg/dL Estimated GFR (Cockcroft-Gault) 86.6 BUN/Creatinine Ratio 19 Glucose Level 100 mg/dL Calcium Level 8.9 mg/dL Total Bilirubin 0.2 mg/dL Aspartate Amino Transf (AST/SGOT) 6 U/L Alanine Aminotransferase (ALT/SGPT) 10 U/L Alkaline Phosphatase 73 U/L Total Protein 6.3 g/dL Albumin 2.6 g/dL Albumin/Globulin Ratio 0.7 Current Medications Medications (Trade) Dose Ordered Sig/Arnold Route PRN Reason Start Time Stop Time Status Last Admin Dose Admin Acetaminophen (Tylenol) 650 mg PRN Q6HRS PRN PO MILD PAIN / TEMP > 100.3'F 03/14/21 20:45 03/17/21 15:50 Multi-Ingredient Ointment (Analgesic [place]) 1 shwetha PRN QID PRN TP MUSCLE PAIN 03/14/21 20:45 Al Hydroxide/Mg Hydroxide (Mylanta Plus Xs) 15 ml PRN AFTMEALHC PRN PO DYSPEPSIA 03/14/21 20:45 Magnesium Hydroxide (Milk Of Magnesia) 2,400 mg PRN QHS PRN PO CONSTIPATION 03/14/21 20:45 Acetaminophen (Tylenol) 650 mg TID PRN PO Back Pain 03/14/21 21:45 UNV Ascorbic Acid (Vitamin C) 500 mg BID PO 03/15/21 09:00 04/15/21 08:29 Aspirin (Aspirin Chewable) 81 mg DAILY PO 03/15/21 09:00 04/15/21 08:29 Atorvastatin Calcium (Lipitor) 20 mg DAILY PO 03/15/21 09:00 04/15/21 08:29 Carbidopa/Levodopa (Sinemet 10/100) 1 tab TID PO 03/14/21 23:00 03/23/21 13:44 DC 03/23/21 13:34 Vitamin D (Vitamin D3) 50,000 unit QWE PO 03/20/21 16:00 04/10/21 17:15 Ferrous Sulfate (Feosol) 325 mg BID PO 03/15/21 09:00 04/15/21 08:28 Furosemide (Lasix) 20 mg DAILY PO 03/15/21 09:00 04/02/21 15:34 DC 04/02/21 08:37 Gabapentin (Neurontin Oral Soln) 150 mg BID@1400,2200 PO 03/14/21 23:00 03/16/21 13:20 DC 03/14/21 23:14 Lisinopril (Prinivil) 10 mg DAILY PO 03/15/21 09:00 04/15/21 08:28 Metformin HCl (Glucophage) 500 mg BIDWMEALS PO 03/15/21 08:00 04/15/21 08:29 Metoprolol Tartrate (Lopressor) 12.5 mg BID PO 03/14/21 23:00 04/15/21 08:29 Tramadol HCl (Ultram) 50 mg PRN Q6HRS PRN PO MOD-SEV PAIN 03/14/21 21:45 04/14/21 17:53 Celecoxib (CeleBREX) 200 mg DAILY PO 03/15/21 09:00 04/15/21 08:29 Lactobacillus Rhamnosus (Culturelle) 1 cap BID PO 03/14/21 23:00 04/15/21 08:29 Pantoprazole Sodium (Protonix) 40 mg DAILY PO 03/15/21 09:00 04/15/21 08:30 Potassium Chloride (Klor-Con) 10 meq DAILY PO 03/15/21 09:00 04/15/21 08:28 Trolamine Salicylate (Myoplex) 1 shwetha TID TP 03/15/21 09:00 04/14/21 20:44 Benztropine Mesylate (Cogentin) 1 mg BID PO 03/14/21 23:00 04/15/21 08:29 Clonazepam (KlonoPIN) 2 mg BID PO 03/14/21 23:00 03/16/21 16:48 DC 03/16/21 09:00 Divalproex Sodium (Depakote Er) 1,000 mg BID PO 03/14/21 23:00 04/15/21 08:29 Fluphenazine HCl (Prolixin) 15 mg BID PO 03/14/21 23:00 04/13/21 17:20 DC 04/13/21 08:36 Lorazepam (Ativan) 1 mg TID PO 03/14/21 23:00 03/16/21 18:45 DC 03/16/21 14:00 Risperidone (RisperDAL) 2 mg DAILY@1400 PO 03/15/21 14:00 04/14/21 12:28 Risperidone (RisperDAL) 4 mg QHS PO 03/14/21 23:00 04/14/21 20:43 Nicotine (Nicoderm Cq 21mg Patch) 1 patch DAILY TD 03/15/21 09:00 04/15/21 08:30 Gabapentin (Neurontin) 100 mg TID PO 03/16/21 14:00 04/15/21 08:28 Ropinirole HCl (Requip) 0.5 mg TID PO 03/16/21 21:00 04/05/21 17:12 DC 04/05/21 09:01 Clonazepam (KlonoPIN) 2 mg HS PO 03/16/21 21:00 03/19/21 21:01 DC 03/18/21 21:13 Clonazepam (KlonoPIN) 1.5 mg DAILY PO 03/17/21 09:00 03/23/21 08:00 DC 03/22/21 08:04 Clonazepam (KlonoPIN) 1 mg DAILY PO 03/23/21 09:00 03/26/21 15:27 DC 03/26/21 08:33 Clonazepam (KlonoPIN) 0.5 mg DAILY PO 03/29/21 09:00 03/26/21 15:27 DC Clonazepam (KlonoPIN) 1.5 mg HS PO 03/20/21 21:00 03/25/21 21:01 DC 03/25/21 19:56 Clonazepam (KlonoPIN) 1 mg QHS PO 03/26/21 21:00 03/26/21 15:27 DC Clonazepam (KlonoPIN) 0.5 mg HS PO 04/01/21 21:00 03/26/21 15:27 DC Lorazepam (Ativan) 1 mg BID PO 03/17/21 21:00 03/19/21 21:01 DC 03/19/21 08:13 Lorazepam (Ativan) 1 mg DAILY PO 03/20/21 09:00 03/22/21 08:59 DC 03/21/21 08:36 Clonazepam (KlonoPIN) 0.5 mg DAILY PO 03/27/21 09:00 03/28/21 21:00 DC 03/28/21 08:28 Clozapine (Clozaril) 25 mg HS PO 03/29/21 21:00 04/01/21 16:44 DC 03/31/21 20:26 Clozapine (Clozaril) 50 mg HS PO 04/01/21 21:00 04/08/21 16:58 DC 04/07/21 20:08 Ropinirole HCl (Requip) 1 mg HS PO 04/05/21 21:00 04/14/21 20:43 Clozapine (Clozaril) 75 mg HS PO 04/08/21 21:00 04/14/21 20:43 Fluphenazine HCl (Prolixin) 15 mg HS PO 04/13/21 21:00 04/14/21 20:43 Fluphenazine HCl (Prolixin) 10 mg DAILY PO 04/14/21 09:00 04/14/21 08:27 I have reviewed the current psychotropics carefully including drug interactions. Risk benefit ratio favors no change other than as noted in my dictated progress note. Diagnosis: Problems: (1) Anxiety disorder (2) Impulse control disorder (3) Schizoaffective disorder, chronic condition with acute exacerbation BESSIE SOLORIO MD Apr 15, 2021 09:03
--- NOTE | 2021-04-15 09:34 | PDOC ---
Exam Note: Timothy Note: This note is a late entry for 04/14/2021 covers elements not covered in my initial note. Subjective: The patient was seen individually in the evening of 04/14/2021 with Zana DORAN, discussed and reviewed the chart. She slept 8 hours previous night. Overall the patient has had a good day today. She is tolerating the reduced Prolixin and I addressed this with her again individually in her room. She was lying in bed ready for the night. She is very pleasant, verbal and interactive. Review of Systems: Ambulation impaired in wheelchair. No CV, , pulmonary, eye, ENT system symptoms on review. Mental Status Exam: The patient is oriented to herself. Speech coherent. Abstraction fair. Computation impaired. Language function intact. Attention span short. Mood and affect anxious. No suicidal or homicidal ideation. Laboratory Data: Reviewed. Impression: Schizoaffective disorder bipolar type, mixed with psychotic features. Anxiety disorder unspecified. Impulse control disorder unspecified. Plan: No change from initial note. Assessment: Vital Signs/I&O: Vital Signs Date Time Temp Pulse Resp B/P (MAP) Pulse Ox O2 Delivery O2 Flow Rate FiO2 04/15/21 08:29 70 130/79 04/15/21 05:38 97.3 20 93 04/14/21 16:03 Room Air I & O 04/14/21 04/14/21 04/15/21 15:00 23:00 07:00 Intake Total 360 ml 240 ml 120 ml Balance 360 ml 240 ml 120 ml Labs: Laboratory Tests Test 04/15/21 06:50 White Blood Count 12.6 x10^3/uL (4.0-11.0) H Red Blood Count 3.40 x10^6/uL (3.50-5.40) L Hemoglobin 10.5 g/dL (12.0-15.5) L Hematocrit 31.3 % (36.0-47.0) L Mean Corpuscular Volume 92 fL (79-100) Mean Corpuscular Hemoglobin 31 pg (25-35) Mean Corpuscular Hemoglobin Concent 34 g/dL (31-37) Red Cell Distribution Width 15.0 % (11.5-14.5) H Platelet Count 204 x10^3/uL (140-400) Neutrophils (%) (Auto) 65 % (31-73) Lymphocytes (%) (Auto) 22 % (24-48) L Monocytes (%) (Auto) 11 % (0-9) H Eosinophils (%) (Auto) 2 % (0-3) Basophils (%) (Auto) 0 % (0-3) Neutrophils # (Auto) 8.2 x10^3uL (1.8-7.7) H Lymphocytes # (Auto) 2.8 x10^3/uL (1.0-4.8) Monocytes # (Auto) 1.4 x10^3/uL (0.0-1.1) H Eosinophils # (Auto) 0.2 x10^3/uL (0.0-0.7) Basophils # (Auto) 0.1 x10^3/uL (0.0-0.2) Platelet Estimate Pending Sodium Level 132 mmol/L (136-145) L Potassium Level 4.7 mmol/L (3.5-5.1) Chloride Level 95 mmol/L (98-107) L Carbon Dioxide Level 30 mmol/L (21-32) Anion Gap 7 (6-14) Blood Urea Nitrogen 13 mg/dL (7-20) Creatinine 0.7 mg/dL (0.6-1.0) Estimated GFR (Cockcroft-Gault) 86.6 BUN/Creatinine Ratio 19 (6-20) Glucose Level 100 mg/dL (70-99) H Calcium Level 8.9 mg/dL (8.5-10.1) Total Bilirubin 0.2 mg/dL (0.2-1.0) Aspartate Amino Transferase (AST) 6 U/L (15-37) L Alanine Aminotransferase (ALT) 10 U/L (14-59) L Alkaline Phosphatase 73 U/L (46-116) Total Protein 6.3 g/dL (6.4-8.2) L Albumin 2.6 g/dL (3.4-5.0) L Albumin/Globulin Ratio 0.7 (1.0-1.7) L Current Medications: Meds: Laboratory Tests Test 04/15/21 06:50 White Blood Count 12.6 x10^3/uL Red Blood Count 3.40 x10^6/uL Hemoglobin 10.5 g/dL Hematocrit 31.3 % Mean Corpuscular Volume 92 fL Mean Corpuscular Hemoglobin 31 pg Mean Corpuscular Hemoglobin Concent 34 g/dL Red Cell Distribution Width 15.0 % Platelet Count 204 x10^3/uL Neutrophils (%) (Auto) 65 % Lymphocytes (%) (Auto) 22 % Monocytes (%) (Auto) 11 % Eosinophils (%) (Auto) 2 % Basophils (%) (Auto) 0 % Neutrophils # (Auto) 8.2 x10^3uL Lymphocytes # (Auto) 2.8 x10^3/uL Monocytes # (Auto) 1.4 x10^3/uL Eosinophils # (Auto) 0.2 x10^3/uL Basophils # (Auto) 0.1 x10^3/uL Platelet Estimate Pending Sodium Level 132 mmol/L Potassium Level 4.7 mmol/L Chloride Level 95 mmol/L Carbon Dioxide Level 30 mmol/L Anion Gap 7 Blood Urea Nitrogen 13 mg/dL Creatinine 0.7 mg/dL Estimated GFR (Cockcroft-Gault) 86.6 BUN/Creatinine Ratio 19 Glucose Level 100 mg/dL Calcium Level 8.9 mg/dL Total Bilirubin 0.2 mg/dL Aspartate Amino Transf (AST/SGOT) 6 U/L Alanine Aminotransferase (ALT/SGPT) 10 U/L Alkaline Phosphatase 73 U/L Total Protein 6.3 g/dL Albumin 2.6 g/dL Albumin/Globulin Ratio 0.7 Current Medications Medications (Trade) Dose Ordered Sig/Arnold Route PRN Reason Start Time Stop Time Status Last Admin Dose Admin Acetaminophen (Tylenol) 650 mg PRN Q6HRS PRN PO MILD PAIN / TEMP > 100.3'F 03/14/21 20:45 03/17/21 15:50 Multi-Ingredient Ointment (Analgesic [place]) 1 shwetha PRN QID PRN TP MUSCLE PAIN 03/14/21 20:45 Al Hydroxide/Mg Hydroxide (Mylanta Plus Xs) 15 ml PRN AFTMEALHC PRN PO DYSPEPSIA 03/14/21 20:45 Magnesium Hydroxide (Milk Of Magnesia) 2,400 mg PRN QHS PRN PO CONSTIPATION 03/14/21 20:45 Acetaminophen (Tylenol) 650 mg TID PRN PO Back Pain 03/14/21 21:45 UNV Ascorbic Acid (Vitamin C) 500 mg BID PO 03/15/21 09:00 04/15/21 08:29 Aspirin (Aspirin Chewable) 81 mg DAILY PO 03/15/21 09:00 04/15/21 08:29 Atorvastatin Calcium (Lipitor) 20 mg DAILY PO 03/15/21 09:00 04/15/21 08:29 Carbidopa/Levodopa (Sinemet 10/100) 1 tab TID PO 03/14/21 23:00 03/23/21 13:44 DC 03/23/21 13:34 Vitamin D (Vitamin D3) 50,000 unit QWE PO 03/20/21 16:00 04/10/21 17:15 Ferrous Sulfate (Feosol) 325 mg BID PO 03/15/21 09:00 04/15/21 08:28 Furosemide (Lasix) 20 mg DAILY PO 03/15/21 09:00 04/02/21 15:34 DC 04/02/21 08:37 Gabapentin (Neurontin Oral Soln) 150 mg BID@1400,2200 PO 03/14/21 23:00 03/16/21 13:20 DC 03/14/21 23:14 Lisinopril (Prinivil) 10 mg DAILY PO 03/15/21 09:00 04/15/21 08:28 Metformin HCl (Glucophage) 500 mg BIDWMEALS PO 03/15/21 08:00 04/15/21 08:29 Metoprolol Tartrate (Lopressor) 12.5 mg BID PO 03/14/21 23:00 04/15/21 08:29 Tramadol HCl (Ultram) 50 mg PRN Q6HRS PRN PO MOD-SEV PAIN 03/14/21 21:45 04/14/21 17:53 Celecoxib (CeleBREX) 200 mg DAILY PO 03/15/21 09:00 04/15/21 08:29 Lactobacillus Rhamnosus (Culturelle) 1 cap BID PO 03/14/21 23:00 04/15/21 08:29 Pantoprazole Sodium (Protonix) 40 mg DAILY PO 03/15/21 09:00 04/15/21 08:30 Potassium Chloride (Klor-Con) 10 meq DAILY PO 03/15/21 09:00 04/15/21 08:28 Trolamine Salicylate (Myoplex) 1 shwetha TID TP 03/15/21 09:00 04/14/21 20:44 Benztropine Mesylate (Cogentin) 1 mg BID PO 03/14/21 23:00 04/15/21 08:29 Clonazepam (KlonoPIN) 2 mg BID PO 03/14/21 23:00 03/16/21 16:48 DC 03/16/21 09:00 Divalproex Sodium (Depakote Er) 1,000 mg BID PO 03/14/21 23:00 04/15/21 08:29 Fluphenazine HCl (Prolixin) 15 mg BID PO 03/14/21 23:00 04/13/21 17:20 DC 04/13/21 08:36 Lorazepam (Ativan) 1 mg TID PO 03/14/21 23:00 03/16/21 18:45 DC 03/16/21 14:00 Risperidone (RisperDAL) 2 mg DAILY@1400 PO 03/15/21 14:00 04/14/21 12:28 Risperidone (RisperDAL) 4 mg QHS PO 03/14/21 23:00 04/14/21 20:43 Nicotine (Nicoderm Cq 21mg Patch) 1 patch DAILY TD 03/15/21 09:00 04/15/21 08:30 Gabapentin (Neurontin) 100 mg TID PO 03/16/21 14:00 04/15/21 08:28 Ropinirole HCl (Requip) 0.5 mg TID PO 03/16/21 21:00 04/05/21 17:12 DC 04/05/21 09:01 Clonazepam (KlonoPIN) 2 mg HS PO 03/16/21 21:00 03/19/21 21:01 DC 03/18/21 21:13 Clonazepam (KlonoPIN) 1.5 mg DAILY PO 03/17/21 09:00 03/23/21 08:00 DC 03/22/21 08:04 Clonazepam (KlonoPIN) 1 mg DAILY PO 03/23/21 09:00 03/26/21 15:27 DC 03/26/21 08:33 Clonazepam (KlonoPIN) 0.5 mg DAILY PO 03/29/21 09:00 03/26/21 15:27 DC Clonazepam (KlonoPIN) 1.5 mg HS PO 03/20/21 21:00 03/25/21 21:01 DC 03/25/21 19:56 Clonazepam (KlonoPIN) 1 mg QHS PO 03/26/21 21:00 03/26/21 15:27 DC Clonazepam (KlonoPIN) 0.5 mg HS PO 04/01/21 21:00 03/26/21 15:27 DC Lorazepam (Ativan) 1 mg BID PO 03/17/21 21:00 03/19/21 21:01 DC 03/19/21 08:13 Lorazepam (Ativan) 1 mg DAILY PO 03/20/21 09:00 03/22/21 08:59 DC 03/21/21 08:36 Clonazepam (KlonoPIN) 0.5 mg DAILY PO 03/27/21 09:00 03/28/21 21:00 DC 03/28/21 08:28 Clozapine (Clozaril) 25 mg HS PO 03/29/21 21:00 04/01/21 16:44 DC 03/31/21 20:26 Clozapine (Clozaril) 50 mg HS PO 04/01/21 21:00 04/08/21 16:58 DC 04/07/21 20:08 Ropinirole HCl (Requip) 1 mg HS PO 04/05/21 21:00 04/14/21 20:43 Clozapine (Clozaril) 75 mg HS PO 04/08/21 21:00 04/14/21 20:43 Fluphenazine HCl (Prolixin) 15 mg HS PO 04/13/21 21:00 04/14/21 20:43 Fluphenazine HCl (Prolixin) 10 mg DAILY PO 04/14/21 09:00 04/15/21 09:14 I have reviewed the current psychotropics carefully including drug interactions. Risk benefit ratio favors no change other than as noted in my dictated progress note. Diagnosis: Problems: (1) Anxiety disorder (2) Impulse control disorder (3) Schizoaffective disorder, chronic condition with acute exacerbation BESSIE SOLORIO MD Apr 15, 2021 09:34
[2021-04-15] MEDS: ACETAMINOPHEN 325 MG TABLET PO PRN (12:37)
[2021-04-15 13:51] LABS: % BANDS 22 % (0-9); % EOS 3 % (0-5); % LYMPHS 24 % (24-48); % MONOS 4 % (0-10); % MYELOS 3 % (0-0); % SEGS 44 % (35-66)
[2021-04-15 13:53] LABS: PLT ESTIMATE ADEQUATE (ADEQUATE)
[2021-04-15 13:55] LABS: BURR CELLS FEW
--- NOTE | 2021-04-15 14:01 | NUR ---
nsg note; she is delusional stating that everyone is talking about her and that they all want to kill her. i reasured her that this wasn't true but she didn't believe me. she saw pills all over the floor when there wasn't anything there. she has been calm, and ook all her meds without difficulty
[2021-04-15] MEDS: risperiDONE 2 MG TABLET. PO SCH ×2 (14:07→21:08)
[2021-04-15] MEDS: traMADol 50 MG TABLET PO PRN ×2 (14:10→21:11)
[2021-04-15 16:10] VITALS: BP 153/79
[2021-04-15] MEDS: cloZAPine 100 MG TABLET PO SCH (21:07)
[2021-04-15] MEDS: rOPINIRole 1 MG TABLET. PO SCH (21:08)
--- NOTE | 2021-04-15 22:04 | PDOC ---
Exam Note: Timothy Note: Please also refer to the separate dictated note~for this date of service dictated separately.~Patient seen individually. Discussed the patient with Nursing staff reviewed the chart.~Reviewed interim history and current functioning. Reviewed vital signs,~Labs/ Radiology~and current medications noted below. Continue current treatment with the changes noted in the dictated addendum note Assessment: Vital Signs/I&O: Vital Signs Date Time Temp Pulse Resp B/P (MAP) Pulse Ox O2 Delivery O2 Flow Rate FiO2 04/15/21 21:42 95 04/15/21 21:08 71 153/79 04/15/21 16:10 97.9 18 04/14/21 16:03 Room Air I & O 04/14/21 04/14/21 04/15/21 15:00 23:00 07:00 Intake Total 360 ml 240 ml 120 ml Balance 360 ml 240 ml 120 ml Labs: Laboratory Tests Test 04/15/21 06:50 White Blood Count 12.6 x10^3/uL (4.0-11.0) H Red Blood Count 3.40 x10^6/uL (3.50-5.40) L Hemoglobin 10.5 g/dL (12.0-15.5) L Hematocrit 31.3 % (36.0-47.0) L Mean Corpuscular Volume 92 fL (79-100) Mean Corpuscular Hemoglobin 31 pg (25-35) Mean Corpuscular Hemoglobin Concent 34 g/dL (31-37) Red Cell Distribution Width 15.0 % (11.5-14.5) H Platelet Count 204 x10^3/uL (140-400) Neutrophils (%) (Auto) 65 % (31-73) Lymphocytes (%) (Auto) 22 % (24-48) L Monocytes (%) (Auto) 11 % (0-9) H Eosinophils (%) (Auto) 2 % (0-3) Basophils (%) (Auto) 0 % (0-3) Neutrophils # (Auto) 8.2 x10^3uL (1.8-7.7) H Lymphocytes # (Auto) 2.8 x10^3/uL (1.0-4.8) Monocytes # (Auto) 1.4 x10^3/uL (0.0-1.1) H Eosinophils # (Auto) 0.2 x10^3/uL (0.0-0.7) Basophils # (Auto) 0.1 x10^3/uL (0.0-0.2) Segmented Neutrophils % 44 % (35-66) Band Neutrophils % 22 % (0-9) H Lymphocytes % 24 % (24-48) Monocytes % 4 % (0-10) Eosinophils % 3 % (0-5) Myelocytes % 3 % (0-0) H Platelet Estimate Adequate (ADEQUATE) [place] Cells Few Sodium Level 132 mmol/L (136-145) L Potassium Level 4.7 mmol/L (3.5-5.1) Chloride Level 95 mmol/L (98-107) L Carbon Dioxide Level 30 mmol/L (21-32) Anion Gap 7 (6-14) Blood Urea Nitrogen 13 mg/dL (7-20) Creatinine 0.7 mg/dL (0.6-1.0) Estimated GFR (Cockcroft-Gault) 86.6 BUN/Creatinine Ratio 19 (6-20) Glucose Level 100 mg/dL (70-99) H Calcium Level 8.9 mg/dL (8.5-10.1) Total Bilirubin 0.2 mg/dL (0.2-1.0) Aspartate Amino Transferase (AST) 6 U/L (15-37) L Alanine Aminotransferase (ALT) 10 U/L (14-59) L Alkaline Phosphatase 73 U/L (46-116) Total Protein 6.3 g/dL (6.4-8.2) L Albumin 2.6 g/dL (3.4-5.0) L Albumin/Globulin Ratio 0.7 (1.0-1.7) L Current Medications: Meds: Laboratory Tests Test 04/15/21 06:50 White Blood Count 12.6 x10^3/uL Red Blood Count 3.40 x10^6/uL Hemoglobin 10.5 g/dL Hematocrit 31.3 % Mean Corpuscular Volume 92 fL Mean Corpuscular Hemoglobin 31 pg Mean Corpuscular Hemoglobin Concent 34 g/dL Red Cell Distribution Width 15.0 % Platelet Count 204 x10^3/uL Neutrophils (%) (Auto) 65 % Lymphocytes (%) (Auto) 22 % Monocytes (%) (Auto) 11 % Eosinophils (%) (Auto) 2 % Basophils (%) (Auto) 0 % Neutrophils # (Auto) 8.2 x10^3uL Lymphocytes # (Auto) 2.8 x10^3/uL Monocytes # (Auto) 1.4 x10^3/uL Eosinophils # (Auto) 0.2 x10^3/uL Basophils # (Auto) 0.1 x10^3/uL Segmented Neutrophils % 44 % Band Neutrophils % 22 % Lymphocytes % 24 % Monocytes % 4 % Eosinophils % 3 % Myelocytes % 3 % Platelet Estimate Adequate [place] Cells Few Sodium Level 132 mmol/L Potassium Level 4.7 mmol/L Chloride Level 95 mmol/L Carbon Dioxide Level 30 mmol/L Anion Gap 7 Blood Urea Nitrogen 13 mg/dL Creatinine 0.7 mg/dL Estimated GFR (Cockcroft-Gault) 86.6 BUN/Creatinine Ratio 19 Glucose Level 100 mg/dL Calcium Level 8.9 mg/dL Total Bilirubin 0.2 mg/dL Aspartate Amino Transf (AST/SGOT) 6 U/L Alanine Aminotransferase (ALT/SGPT) 10 U/L Alkaline Phosphatase 73 U/L Total Protein 6.3 g/dL Albumin 2.6 g/dL Albumin/Globulin Ratio 0.7 Current Medications Medications (Trade) Dose Ordered Sig/Arnold Route PRN Reason Start Time Stop Time Status Last Admin Dose Admin Acetaminophen (Tylenol) 650 mg PRN Q6HRS PRN PO MILD PAIN / TEMP > 100.3'F 03/14/21 20:45 04/15/21 12:37 Multi-Ingredient Ointment (Analgesic [place]) 1 shwetha PRN QID PRN TP MUSCLE PAIN 03/14/21 20:45 Al Hydroxide/Mg Hydroxide (Mylanta Plus Xs) 15 ml PRN AFTMEALHC PRN PO DYSPEPSIA 03/14/21 20:45 Magnesium Hydroxide (Milk Of Magnesia) 2,400 mg PRN QHS PRN PO CONSTIPATION 03/14/21 20:45 Acetaminophen (Tylenol) 650 mg TID PRN PO Back Pain 03/14/21 21:45 UNV Ascorbic Acid (Vitamin C) 500 mg BID PO 03/15/21 09:00 04/15/21 21:08 Aspirin (Aspirin Chewable) 81 mg DAILY PO 03/15/21 09:00 04/15/21 08:29 Atorvastatin Calcium (Lipitor) 20 mg DAILY PO 03/15/21 09:00 04/15/21 08:29 Carbidopa/Levodopa (Sinemet 10/100) 1 tab TID PO 03/14/21 23:00 03/23/21 13:44 DC 03/23/21 13:34 Vitamin D (Vitamin D3) 50,000 unit QWE PO 03/20/21 16:00 04/10/21 17:15 Ferrous Sulfate (Feosol) 325 mg BID PO 03/15/21 09:00 04/15/21 21:07 Furosemide (Lasix) 20 mg DAILY PO 03/15/21 09:00 04/02/21 15:34 DC 04/02/21 08:37 Gabapentin (Neurontin Oral Soln) 150 mg BID@1400,2200 PO 03/14/21 23:00 03/16/21 13:20 DC 03/14/21 23:14 Lisinopril (Prinivil) 10 mg DAILY PO 03/15/21 09:00 04/15/21 08:28 Metformin HCl (Glucophage) 500 mg BIDWMEALS PO 03/15/21 08:00 04/15/21 17:21 Metoprolol Tartrate (Lopressor) 12.5 mg BID PO 03/14/21 23:00 04/15/21 21:08 Tramadol HCl (Ultram) 50 mg PRN Q6HRS PRN PO MOD-SEV PAIN 03/14/21 21:45 04/15/21 21:11 Celecoxib (CeleBREX) 200 mg DAILY PO 03/15/21 09:00 04/15/21 08:29 Lactobacillus Rhamnosus (Culturelle) 1 cap BID PO 03/14/21 23:00 04/15/21 21:07 Pantoprazole Sodium (Protonix) 40 mg DAILY PO 03/15/21 09:00 04/15/21 08:30 Potassium Chloride (Klor-Con) 10 meq DAILY PO 03/15/21 09:00 04/15/21 08:28 Trolamine Salicylate (Myoplex) 1 shwetha TID TP 03/15/21 09:00 04/14/21 20:44 Benztropine Mesylate (Cogentin) 1 mg BID PO 03/14/21 23:00 04/15/21 21:07 Clonazepam (KlonoPIN) 2 mg BID PO 03/14/21 23:00 03/16/21 16:48 DC 03/16/21 09:00 Divalproex Sodium (Depakote Er) 1,000 mg BID PO 03/14/21 23:00 04/15/21 21:08 Fluphenazine HCl (Prolixin) 15 mg BID PO 03/14/21 23:00 04/13/21 17:20 DC 04/13/21 08:36 Lorazepam (Ativan) 1 mg TID PO 03/14/21 23:00 03/16/21 18:45 DC 03/16/21 14:00 Risperidone (RisperDAL) 2 mg DAILY@1400 PO 03/15/21 14:00 04/15/21 14:07 Risperidone (RisperDAL) 4 mg QHS PO 03/14/21 23:00 04/15/21 21:08 Nicotine (Nicoderm Cq 21mg Patch) 1 patch DAILY TD 03/15/21 09:00 04/15/21 08:30 Gabapentin (Neurontin) 100 mg TID PO 03/16/21 14:00 04/15/21 21:07 Ropinirole HCl (Requip) 0.5 mg TID PO 03/16/21 21:00 04/05/21 17:12 DC 04/05/21 09:01 Clonazepam (KlonoPIN) 2 mg HS PO 03/16/21 21:00 03/19/21 21:01 DC 03/18/21 21:13 Clonazepam (KlonoPIN) 1.5 mg DAILY PO 03/17/21 09:00 03/23/21 08:00 DC 03/22/21 08:04 Clonazepam (KlonoPIN) 1 mg DAILY PO 03/23/21 09:00 03/26/21 15:27 DC 03/26/21 08:33 Clonazepam (KlonoPIN) 0.5 mg DAILY PO 03/29/21 09:00 03/26/21 15:27 DC Clonazepam (KlonoPIN) 1.5 mg HS PO 03/20/21 21:00 03/25/21 21:01 DC 03/25/21 19:56 Clonazepam (KlonoPIN) 1 mg QHS PO 03/26/21 21:00 03/26/21 15:27 DC Clonazepam (KlonoPIN) 0.5 mg HS PO 04/01/21 21:00 03/26/21 15:27 DC Lorazepam (Ativan) 1 mg BID PO 03/17/21 21:00 03/19/21 21:01 DC 03/19/21 08:13 Lorazepam (Ativan) 1 mg DAILY PO 03/20/21 09:00 03/22/21 08:59 DC 03/21/21 08:36 Clonazepam (KlonoPIN) 0.5 mg DAILY PO 03/27/21 09:00 03/28/21 21:00 DC 03/28/21 08:28 Clozapine (Clozaril) 25 mg HS PO 03/29/21 21:00 04/01/21 16:44 DC 03/31/21 20:26 Clozapine (Clozaril) 50 mg HS PO 04/01/21 21:00 04/08/21 16:58 DC 04/07/21 20:08 Ropinirole HCl (Requip) 1 mg HS PO 04/05/21 21:00 04/15/21 21:08 Clozapine (Clozaril) 75 mg HS PO 04/08/21 21:00 04/15/21 14:23 DC 04/14/21 20:43 Fluphenazine HCl (Prolixin) 15 mg HS PO 04/13/21 21:00 04/15/21 21:10 Fluphenazine HCl (Prolixin) 10 mg DAILY PO 04/14/21 09:00 04/15/21 09:14 Clozapine (Clozaril) 100 mg HS PO 04/15/21 21:00 04/15/21 21:07 Current Medications Medications (Trade) Dose Ordered Sig/Arnold Route PRN Reason Start Time Stop Time Status Last Admin Dose Admin Clozapine (Clozaril) 100 mg HS PO 04/15/21 21:00 04/15/21 21:07 I have reviewed the current psychotropics carefully including drug interactions. Risk benefit ratio favors no change other than as noted in my dictated progress note. Diagnosis: Problems: (1) Anxiety disorder (2) Impulse control disorder (3) Schizoaffective disorder, chronic condition with acute exacerbation BESSIE SOLORIO MD Apr 15, 2021 22:04
--- NOTE | 2021-04-15 22:59 | NUR ---
Pt located in dayroom this evening. Pt irritable and argumentative. When administering HS medications, pt repeated "this is bullshit, bullshit, bullshit. You are trying to poison me." Pt eventually compliant with whole medications, however cursed about Dr. Maher stating he is a "dumbass" and "asshole" for prescribing her medication.
[2021-04-16 05:10] VITALS: BP 137/73
[2021-04-16] MEDS: metFORMIN 500 MG TABLET PO SCH ×2 (08:00→17:20)
[2021-04-16] MEDS: ASPIRIN CHEWABLE 81 MG TABLET. PO SCH (09:00)
[2021-04-16] MEDS: LACTOBACILLUS RHAMNOSUS GG 1 CAPSULE. PO SCH ×2 (09:00→20:20)
[2021-04-16] MEDS: GABAPENTIN 100 MG CAPSULE. PO SCH ×3 (09:00→20:20)
[2021-04-16] MEDS: ASCORBIC ACID 500 MG TABLET PO SCH ×2 (09:00→20:19)
[2021-04-16] MEDS: FERROUS SULFATE 325 MG TABLET. PO SCH ×2 (09:00→20:19)
[2021-04-16] MEDS: ATORVASTATIN CALCIUM 20 MG TABLET PO SCH (09:00)
[2021-04-16] MEDS: DIVALPROEX ER 500 MG TAB.ER.24H PO SCH ×2 (09:00→20:21)
[2021-04-16] MEDS: TROLAMINE SALICYLATE 10% TOPICAL CREAM 85GM JAR. TP SCH ×3 (09:00→20:21)
[2021-04-16] MEDS: PANTOPRAZOLE 40 MG TABLET. PO SCH (09:00)
[2021-04-16] MEDS: LISINOPRIL 10 MG TABLET PO SCH (09:00)
[2021-04-16] MEDS: METOPROLOL TART IMMED RELEASE 25 MG TABLET. PO SCH ×2 (09:00→20:20)
[2021-04-16] MEDS: CELECOXIB 100 MG CAPSULE PO SCH (09:00)
[2021-04-16] MEDS: POTASSIUM CHLORIDE 10 MEQ TABLET.ER. PO SCH (09:00)
[2021-04-16] MEDS: NICOTINE 21MG PATCH. TD SCH (09:00)
[2021-04-16] MEDS: BENZTROPINE MESYLATE 1 MG TABLET PO SCH ×2 (09:00→20:19)
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
[2021-04-16] MEDS: risperiDONE 2 MG TABLET. PO SCH ×2 (14:07→20:21)
[2021-04-16 15:33] VITALS: BP 120/78
[2021-04-16] MEDS: rOPINIRole 1 MG TABLET. PO SCH (20:19)
[2021-04-16] MEDS: traMADol 50 MG TABLET PO PRN (20:21)
[2021-04-16] MEDS: cloZAPine 100 MG TABLET PO SCH (20:21)
--- NOTE | 2021-04-16 21:55 | PDOC ---
Exam Note: Timothy Note: Please also refer to the separate dictated note~for this date of service dictated separately.~Patient seen individually. Discussed the patient with Nursing staff reviewed the chart.~Reviewed interim history and current functioning. Reviewed vital signs,~Labs/ Radiology~and current medications noted below. Continue current treatment with the changes noted in the dictated addendum note Assessment: Vital Signs/I&O: Vital Signs Date Time Temp Pulse Resp B/P (MAP) Pulse Ox O2 Delivery O2 Flow Rate FiO2 04/16/21 20:51 94 04/16/21 20:20 70 120/78 04/16/21 15:33 98.4 20 04/14/21 16:03 Room Air I & O 04/15/21 04/15/21 04/16/21 15:00 23:00 07:00 Intake Total 960 ml 600 ml Balance 960 ml 600 ml Current Medications: Meds: Current Medications Medications (Trade) Dose Ordered Sig/Arnold Route PRN Reason Start Time Stop Time Status Last Admin Dose Admin Acetaminophen (Tylenol) 650 mg PRN Q6HRS PRN PO MILD PAIN / TEMP > 100.3'F 03/14/21 20:45 04/15/21 12:37 Multi-Ingredient Ointment (Analgesic [place]) 1 shwetha PRN QID PRN TP MUSCLE PAIN 03/14/21 20:45 Al Hydroxide/Mg Hydroxide (Mylanta Plus Xs) 15 ml PRN AFTMEALHC PRN PO DYSPEPSIA 03/14/21 20:45 Magnesium Hydroxide (Milk Of Magnesia) 2,400 mg PRN QHS PRN PO CONSTIPATION 03/14/21 20:45 Acetaminophen (Tylenol) 650 mg TID PRN PO Back Pain 03/14/21 21:45 UNV Ascorbic Acid (Vitamin C) 500 mg BID PO 03/15/21 09:00 04/16/21 20:19 Aspirin (Aspirin Chewable) 81 mg DAILY PO 03/15/21 09:00 04/16/21 09:00 Atorvastatin Calcium (Lipitor) 20 mg DAILY PO 03/15/21 09:00 04/16/21 09:00 Carbidopa/Levodopa (Sinemet 10/100) 1 tab TID PO 03/14/21 23:00 03/23/21 13:44 DC 03/23/21 13:34 Vitamin D (Vitamin D3) 50,000 unit QWE PO 03/20/21 16:00 04/10/21 17:15 Ferrous Sulfate (Feosol) 325 mg BID PO 03/15/21 09:00 04/16/21 20:19 Furosemide (Lasix) 20 mg DAILY PO 03/15/21 09:00 04/02/21 15:34 DC 04/02/21 08:37 Gabapentin (Neurontin Oral Soln) 150 mg BID@1400,2200 PO 03/14/21 23:00 03/16/21 13:20 DC 03/14/21 23:14 Lisinopril (Prinivil) 10 mg DAILY PO 03/15/21 09:00 04/16/21 09:00 Metformin HCl (Glucophage) 500 mg BIDWMEALS PO 03/15/21 08:00 04/16/21 17:20 Metoprolol Tartrate (Lopressor) 12.5 mg BID PO 03/14/21 23:00 04/16/21 20:20 Tramadol HCl (Ultram) 50 mg PRN Q6HRS PRN PO MOD-SEV PAIN 03/14/21 21:45 04/16/21 20:21 Celecoxib (CeleBREX) 200 mg DAILY PO 03/15/21 09:00 04/16/21 09:00 Lactobacillus Rhamnosus (Culturelle) 1 cap BID PO 03/14/21 23:00 04/16/21 20:20 Pantoprazole Sodium (Protonix) 40 mg DAILY PO 03/15/21 09:00 04/16/21 09:00 Potassium Chloride (Klor-Con) 10 meq DAILY PO 03/15/21 09:00 04/16/21 09:00 Trolamine Salicylate (Myoplex) 1 shwetha TID TP 03/15/21 09:00 04/14/21 20:44 Benztropine Mesylate (Cogentin) 1 mg BID PO 03/14/21 23:00 04/16/21 20:19 Clonazepam (KlonoPIN) 2 mg BID PO 03/14/21 23:00 03/16/21 16:48 DC 03/16/21 09:00 Divalproex Sodium (Depakote Er) 1,000 mg BID PO 03/14/21 23:00 04/16/21 20:21 Fluphenazine HCl (Prolixin) 15 mg BID PO 03/14/21 23:00 04/13/21 17:20 DC 04/13/21 08:36 Lorazepam (Ativan) 1 mg TID PO 03/14/21 23:00 03/16/21 18:45 DC 03/16/21 14:00 Risperidone (RisperDAL) 2 mg DAILY@1400 PO 03/15/21 14:00 04/16/21 14:07 Risperidone (RisperDAL) 4 mg QHS PO 03/14/21 23:00 04/16/21 20:21 Nicotine (Nicoderm Cq 21mg Patch) 1 patch DAILY TD 03/15/21 09:00 04/16/21 09:00 Gabapentin (Neurontin) 100 mg TID PO 03/16/21 14:00 04/16/21 20:20 Ropinirole HCl (Requip) 0.5 mg TID PO 03/16/21 21:00 04/05/21 17:12 DC 04/05/21 09:01 Clonazepam (KlonoPIN) 2 mg HS PO 03/16/21 21:00 03/19/21 21:01 DC 03/18/21 21:13 Clonazepam (KlonoPIN) 1.5 mg DAILY PO 03/17/21 09:00 03/23/21 08:00 DC 03/22/21 08:04 Clonazepam (KlonoPIN) 1 mg DAILY PO 03/23/21 09:00 03/26/21 15:27 DC 03/26/21 08:33 Clonazepam (KlonoPIN) 0.5 mg DAILY PO 03/29/21 09:00 03/26/21 15:27 DC Clonazepam (KlonoPIN) 1.5 mg HS PO 03/20/21 21:00 03/25/21 21:01 DC 03/25/21 19:56 Clonazepam (KlonoPIN) 1 mg QHS PO 03/26/21 21:00 03/26/21 15:27 DC Clonazepam (KlonoPIN) 0.5 mg HS PO 04/01/21 21:00 03/26/21 15:27 DC Lorazepam (Ativan) 1 mg BID PO 03/17/21 21:00 03/19/21 21:01 DC 03/19/21 08:13 Lorazepam (Ativan) 1 mg DAILY PO 03/20/21 09:00 03/22/21 08:59 DC 03/21/21 08:36 Clonazepam (KlonoPIN) 0.5 mg DAILY PO 03/27/21 09:00 03/28/21 21:00 DC 03/28/21 08:28 Clozapine (Clozaril) 25 mg HS PO 03/29/21 21:00 04/01/21 16:44 DC 03/31/21 20:26 Clozapine (Clozaril) 50 mg HS PO 04/01/21 21:00 04/08/21 16:58 DC 04/07/21 20:08 Ropinirole HCl (Requip) 1 mg HS PO 04/05/21 21:00 04/16/21 20:19 Clozapine (Clozaril) 75 mg HS PO 04/08/21 21:00 04/15/21 14:23 DC 04/14/21 20:43 Fluphenazine HCl (Prolixin) 15 mg HS PO 04/13/21 21:00 04/16/21 20:19 Fluphenazine HCl (Prolixin) 10 mg DAILY PO 04/14/21 09:00 04/16/21 09:00 Clozapine (Clozaril) 100 mg HS PO 04/15/21 21:00 04/16/21 20:21 I have reviewed the current psychotropics carefully including drug interactions. Risk benefit ratio favors no change other than as noted in my dictated progress note. Diagnosis: Problems: (1) Anxiety disorder (2) Impulse control disorder (3) Schizoaffective disorder, chronic condition with acute exacerbation BESSIE SOLORIO MD Apr 16, 2021 21:55
--- NOTE | 2021-04-16 23:43 | NUR ---
Pt located in her room this evening. Pt with flat affect and refusing to interact with this RN. Compliant with whole medications and shower. When consuming medications, pt stated that there were too many pills. Pt stated that she only needs to take Morphine and Risperdal but Dr. Maher is "too much of a dumbass to know that."
[2021-04-17 05:00] VITALS: BP 126/77
[2021-04-17] MEDS: CHOLECALCIFEROL (VITAMIN D3) 50,000 UNIT CAPSULE PO SCH (08:16)
[2021-04-17] MEDS: ASPIRIN CHEWABLE 81 MG TABLET. PO SCH (08:16)
[2021-04-17] MEDS: BENZTROPINE MESYLATE 1 MG TABLET PO SCH ×2 (08:17→20:24)
[2021-04-17] MEDS: CELECOXIB 100 MG CAPSULE PO SCH (08:17)
[2021-04-17] MEDS: PANTOPRAZOLE 40 MG TABLET. PO SCH (08:17)
[2021-04-17] MEDS: POTASSIUM CHLORIDE 10 MEQ TABLET.ER. PO SCH (08:18)
[2021-04-17] MEDS: ATORVASTATIN CALCIUM 20 MG TABLET PO SCH (08:18)
[2021-04-17] MEDS: FERROUS SULFATE 325 MG TABLET. PO SCH ×2 (08:18→20:24)
[2021-04-17] MEDS: LISINOPRIL 10 MG TABLET PO SCH (08:18)
[2021-04-17] MEDS: ASCORBIC ACID 500 MG TABLET PO SCH ×2 (08:18→20:22)
[2021-04-17] MEDS: metFORMIN 500 MG TABLET PO SCH ×2 (08:18→17:14)
[2021-04-17] MEDS: LACTOBACILLUS RHAMNOSUS GG 1 CAPSULE. PO SCH ×2 (08:18→20:23)
[2021-04-17] MEDS: DIVALPROEX ER 500 MG TAB.ER.24H PO SCH ×2 (08:19→20:24)
[2021-04-17] MEDS: METOPROLOL TART IMMED RELEASE 25 MG TABLET. PO SCH ×2 (08:20→20:24)
[2021-04-17] MEDS: TROLAMINE SALICYLATE 10% TOPICAL CREAM 85GM JAR. TP SCH ×3 (08:20→20:25)
--- NOTE | 2021-04-17 08:21 | PDOC ---
Exam Note: Timothy Note: This note is a late entry for 04/15/2021 covers elements not covered in my initial note. Subjective: The patient was seen individually in the evening of 04/15/2021 with Bren DORAN, discussed and reviewed the chart. She slept 7 hours previous night. Overall the patient has been compliant with medications, still somewhat delusional, suspicious but less agitated, much calmer in verbal interactions. I met with her in her room at some length. Absolute neutrophil count is 8000. We will increase the Clozaril from 75 mg h.s. to 100 mg h.s. I met with her the second time at the end of the hallway towards the end of my rounds. Review of Systems: Ambulation impaired in wheelchair. No CV, , pulmonary, eye, ENT system symptoms on review. Mental Status Exam: The patient is oriented to herself. She remains suspicious discussing discharge plans. Speech coherent. Abstraction fair. Computation impaired. Language function intact. Attention span short. Mood and affect remains labile. No suicidal or homicidal ideation. Laboratory Data: Reviewed. Impression: Schizoaffective disorder bipolar type, mixed with psychotic features. Anxiety disorder unspecified. Impulse control disorder unspecified. Plan: Increase the Clozaril as above. Continue rest of the psychotropics unchanged. Assessment: Vital Signs/I&O: Vital Signs Date Time Temp Pulse Resp B/P (MAP) Pulse Ox O2 Delivery O2 Flow Rate FiO2 04/17/21 08:20 70 126/77 04/17/21 05:00 97.7 18 92 04/14/21 16:03 Room Air I & O 04/16/21 04/16/21 04/17/21 15:00 23:00 07:00 Intake Total 840 ml 600 ml Balance 840 ml 600 ml Current Medications: Meds: Current Medications Medications (Trade) Dose Ordered Sig/Arnold Route PRN Reason Start Time Stop Time Status Last Admin Dose Admin Acetaminophen (Tylenol) 650 mg PRN Q6HRS PRN PO MILD PAIN / TEMP > 100.3'F 03/14/21 20:45 04/15/21 12:37 Multi-Ingredient Ointment (Analgesic [place]) 1 shwetha PRN QID PRN TP MUSCLE PAIN 03/14/21 20:45 Al Hydroxide/Mg Hydroxide (Mylanta Plus Xs) 15 ml PRN AFTMEALHC PRN PO DYSPEPSIA 03/14/21 20:45 Magnesium Hydroxide (Milk Of Magnesia) 2,400 mg PRN QHS PRN PO CONSTIPATION 03/14/21 20:45 Acetaminophen (Tylenol) 650 mg TID PRN PO Back Pain 03/14/21 21:45 UNV Ascorbic Acid (Vitamin C) 500 mg BID PO 03/15/21 09:00 04/17/21 08:18 Aspirin (Aspirin Chewable) 81 mg DAILY PO 03/15/21 09:00 04/17/21 08:16 Atorvastatin Calcium (Lipitor) 20 mg DAILY PO 03/15/21 09:00 04/17/21 08:18 Carbidopa/Levodopa (Sinemet 10/100) 1 tab TID PO 03/14/21 23:00 03/23/21 13:44 DC 03/23/21 13:34 Vitamin D (Vitamin D3) 50,000 unit QWE PO 03/20/21 16:00 04/17/21 08:16 Ferrous Sulfate (Feosol) 325 mg BID PO 03/15/21 09:00 04/17/21 08:18 Furosemide (Lasix) 20 mg DAILY PO 03/15/21 09:00 04/02/21 15:34 DC 04/02/21 08:37 Gabapentin (Neurontin Oral Soln) 150 mg BID@1400,2200 PO 03/14/21 23:00 03/16/21 13:20 DC 03/14/21 23:14 Lisinopril (Prinivil) 10 mg DAILY PO 03/15/21 09:00 04/17/21 08:18 Metformin HCl (Glucophage) 500 mg BIDWMEALS PO 03/15/21 08:00 04/17/21 08:18 Metoprolol Tartrate (Lopressor) 12.5 mg BID PO 03/14/21 23:00 04/17/21 08:20 Tramadol HCl (Ultram) 50 mg PRN Q6HRS PRN PO MOD-SEV PAIN 03/14/21 21:45 04/16/21 20:21 Celecoxib (CeleBREX) 200 mg DAILY PO 03/15/21 09:00 04/17/21 08:17 Lactobacillus Rhamnosus (Culturelle) 1 cap BID PO 03/14/21 23:00 04/17/21 08:18 Pantoprazole Sodium (Protonix) 40 mg DAILY PO 03/15/21 09:00 04/17/21 08:17 Potassium Chloride (Klor-Con) 10 meq DAILY PO 03/15/21 09:00 04/17/21 08:18 Trolamine Salicylate (Myoplex) 1 shwetha TID TP 03/15/21 09:00 04/14/21 20:44 Benztropine Mesylate (Cogentin) 1 mg BID PO 03/14/21 23:00 04/17/21 08:17 Clonazepam (KlonoPIN) 2 mg BID PO 03/14/21 23:00 03/16/21 16:48 DC 03/16/21 09:00 Divalproex Sodium (Depakote Er) 1,000 mg BID PO 03/14/21 23:00 04/17/21 08:19 Fluphenazine HCl (Prolixin) 15 mg BID PO 03/14/21 23:00 04/13/21 17:20 DC 04/13/21 08:36 Lorazepam (Ativan) 1 mg TID PO 03/14/21 23:00 03/16/21 18:45 DC 03/16/21 14:00 Risperidone (RisperDAL) 2 mg DAILY@1400 PO 03/15/21 14:00 04/16/21 14:07 Risperidone (RisperDAL) 4 mg QHS PO 03/14/21 23:00 04/16/21 20:21 Nicotine (Nicoderm Cq 21mg Patch) 1 patch DAILY TD 03/15/21 09:00 04/16/21 09:00 Gabapentin (Neurontin) 100 mg TID PO 03/16/21 14:00 04/16/21 20:20 Ropinirole HCl (Requip) 0.5 mg TID PO 03/16/21 21:00 04/05/21 17:12 DC 04/05/21 09:01 Clonazepam (KlonoPIN) 2 mg HS PO 03/16/21 21:00 03/19/21 21:01 DC 03/18/21 21:13 Clonazepam (KlonoPIN) 1.5 mg DAILY PO 03/17/21 09:00 03/23/21 08:00 DC 03/22/21 08:04 Clonazepam (KlonoPIN) 1 mg DAILY PO 03/23/21 09:00 03/26/21 15:27 DC 03/26/21 08:33 Clonazepam (KlonoPIN) 0.5 mg DAILY PO 03/29/21 09:00 03/26/21 15:27 DC Clonazepam (KlonoPIN) 1.5 mg HS PO 03/20/21 21:00 03/25/21 21:01 DC 03/25/21 19:56 Clonazepam (KlonoPIN) 1 mg QHS PO 03/26/21 21:00 03/26/21 15:27 DC Clonazepam (KlonoPIN) 0.5 mg HS PO 04/01/21 21:00 03/26/21 15:27 DC Lorazepam (Ativan) 1 mg BID PO 03/17/21 21:00 03/19/21 21:01 DC 03/19/21 08:13 Lorazepam (Ativan) 1 mg DAILY PO 03/20/21 09:00 03/22/21 08:59 DC 03/21/21 08:36 Clonazepam (KlonoPIN) 0.5 mg DAILY PO 03/27/21 09:00 03/28/21 21:00 DC 03/28/21 08:28 Clozapine (Clozaril) 25 mg HS PO 03/29/21 21:00 04/01/21 16:44 DC 03/31/21 20:26 Clozapine (Clozaril) 50 mg HS PO 04/01/21 21:00 04/08/21 16:58 DC 04/07/21 20:08 Ropinirole HCl (Requip) 1 mg HS PO 04/05/21 21:00 04/16/21 20:19 Clozapine (Clozaril) 75 mg HS PO 04/08/21 21:00 04/15/21 14:23 DC 04/14/21 20:43 Fluphenazine HCl (Prolixin) 15 mg HS PO 04/13/21 21:00 04/16/21 20:19 Fluphenazine HCl (Prolixin) 10 mg DAILY PO 04/14/21 09:00 04/17/21 08:19 Clozapine (Clozaril) 100 mg HS PO 04/15/21 21:00 04/16/21 20:21 I have reviewed the current psychotropics carefully including drug interactions. Risk benefit ratio favors no change other than as noted in my dictated progress note. Diagnosis: Problems: (1) Anxiety disorder (2) Impulse control disorder (3) Schizoaffective disorder, chronic condition with acute exacerbation BESSIE SOLORIO MD Apr 17, 2021 08:21
[2021-04-17] MEDS: GABAPENTIN 100 MG CAPSULE. PO SCH ×3 (08:24→20:22)
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
[2021-04-17] MEDS: NICOTINE 21MG PATCH. TD SCH (09:00)
--- NOTE | 2021-04-17 09:28 | NUR ---
Pt compliant with medications this morning, not attempting to debate or argue about the medications with this nurse. Her interactions with others have been appropriate, absent of physical/verbal aggression at this time. She remains with a flat affect and tone. Absent of SI/HI/VH/AH/delusions at this time. Pt is able to make her needs known and has no complaints or concerns at this time. Plan of care continues, will pass to next shift.
[2021-04-17] MEDS: risperiDONE 2 MG TABLET. PO SCH ×2 (12:10→20:22)
[2021-04-17] MEDS: traMADol 50 MG TABLET PO PRN ×2 (14:14→20:22)
--- NOTE | 2021-04-17 14:18 | NUR ---
Pt very somatic this afternoon; stating she has 10/10 pain in BLE, BUE, and neck. Stating, "My neck and my shoulders are broken." PRN Tramadol 50 mg PO administered at her request.
[2021-04-17 15:43] VITALS: BP 135/83
[2021-04-17] MEDS: rOPINIRole 1 MG TABLET. PO SCH (20:23)
[2021-04-17] MEDS: cloZAPine 100 MG TABLET PO SCH (20:24)
--- NOTE | 2021-04-17 22:23 | PDOC ---
Exam Note: Timothy Note: Please also refer to the separate dictated note~for this date of service dictated separately.~Patient seen individually. Discussed the patient with Nursing staff reviewed the chart.~Reviewed interim history and current functioning. Reviewed vital signs,~Labs/ Radiology~and current medications noted below. Continue current treatment with the changes noted in the dictated addendum note Assessment: Vital Signs/I&O: Vital Signs Date Time Temp Pulse Resp B/P (MAP) Pulse Ox O2 Delivery O2 Flow Rate FiO2 04/17/21 20:24 68 135/83 04/17/21 20:22 92 04/17/21 16:24 16 Room Air 04/17/21 15:43 98.0 I & O 04/16/21 04/16/21 04/17/21 15:00 23:00 07:00 Intake Total 840 ml 600 ml Balance 840 ml 600 ml Current Medications: Meds: Current Medications Medications (Trade) Dose Ordered Sig/Arnold Route PRN Reason Start Time Stop Time Status Last Admin Dose Admin Acetaminophen (Tylenol) 650 mg PRN Q6HRS PRN PO MILD PAIN / TEMP > 100.3'F 03/14/21 20:45 04/15/21 12:37 Multi-Ingredient Ointment (Analgesic [place]) 1 shwetha PRN QID PRN TP MUSCLE PAIN 03/14/21 20:45 Al Hydroxide/Mg Hydroxide (Mylanta Plus Xs) 15 ml PRN AFTMEALHC PRN PO DYSPEPSIA 03/14/21 20:45 Magnesium Hydroxide (Milk Of Magnesia) 2,400 mg PRN QHS PRN PO CONSTIPATION 03/14/21 20:45 Acetaminophen (Tylenol) 650 mg TID PRN PO Back Pain 03/14/21 21:45 UNV Ascorbic Acid (Vitamin C) 500 mg BID PO 03/15/21 09:00 04/17/21 20:22 Aspirin (Aspirin Chewable) 81 mg DAILY PO 03/15/21 09:00 04/17/21 08:16 Atorvastatin Calcium (Lipitor) 20 mg DAILY PO 03/15/21 09:00 04/17/21 08:18 Carbidopa/Levodopa (Sinemet 10/100) 1 tab TID PO 03/14/21 23:00 03/23/21 13:44 DC 03/23/21 13:34 Vitamin D (Vitamin D3) 50,000 unit QWE PO 03/20/21 16:00 04/17/21 08:16 Ferrous Sulfate (Feosol) 325 mg BID PO 03/15/21 09:00 04/17/21 20:24 Furosemide (Lasix) 20 mg DAILY PO 03/15/21 09:00 04/02/21 15:34 DC 04/02/21 08:37 Gabapentin (Neurontin Oral Soln) 150 mg BID@1400,2200 PO 03/14/21 23:00 03/16/21 13:20 DC 03/14/21 23:14 Lisinopril (Prinivil) 10 mg DAILY PO 03/15/21 09:00 04/17/21 08:18 Metformin HCl (Glucophage) 500 mg BIDWMEALS PO 03/15/21 08:00 04/17/21 17:14 Metoprolol Tartrate (Lopressor) 12.5 mg BID PO 03/14/21 23:00 04/17/21 20:24 Tramadol HCl (Ultram) 50 mg PRN Q6HRS PRN PO MOD-SEV PAIN 03/14/21 21:45 04/17/21 20:22 Celecoxib (CeleBREX) 200 mg DAILY PO 03/15/21 09:00 04/17/21 08:17 Lactobacillus Rhamnosus (Culturelle) 1 cap BID PO 03/14/21 23:00 04/17/21 20:23 Pantoprazole Sodium (Protonix) 40 mg DAILY PO 03/15/21 09:00 04/17/21 08:17 Potassium Chloride (Klor-Con) 10 meq DAILY PO 03/15/21 09:00 04/17/21 08:18 Trolamine Salicylate (Myoplex) 1 shwetha TID TP 03/15/21 09:00 04/17/21 12:08 Benztropine Mesylate (Cogentin) 1 mg BID PO 03/14/21 23:00 04/17/21 20:24 Clonazepam (KlonoPIN) 2 mg BID PO 03/14/21 23:00 03/16/21 16:48 DC 03/16/21 09:00 Divalproex Sodium (Depakote Er) 1,000 mg BID PO 03/14/21 23:00 04/17/21 20:24 Fluphenazine HCl (Prolixin) 15 mg BID PO 03/14/21 23:00 04/13/21 17:20 DC 04/13/21 08:36 Lorazepam (Ativan) 1 mg TID PO 03/14/21 23:00 03/16/21 18:45 DC 03/16/21 14:00 Risperidone (RisperDAL) 2 mg DAILY@1400 PO 03/15/21 14:00 04/17/21 12:10 Risperidone (RisperDAL) 4 mg QHS PO 03/14/21 23:00 04/17/21 20:22 Nicotine (Nicoderm Cq 21mg Patch) 1 patch DAILY TD 03/15/21 09:00 04/17/21 09:00 Gabapentin (Neurontin) 100 mg TID PO 03/16/21 14:00 04/17/21 20:22 Ropinirole HCl (Requip) 0.5 mg TID PO 03/16/21 21:00 04/05/21 17:12 DC 04/05/21 09:01 Clonazepam (KlonoPIN) 2 mg HS PO 03/16/21 21:00 03/19/21 21:01 DC 03/18/21 21:13 Clonazepam (KlonoPIN) 1.5 mg DAILY PO 03/17/21 09:00 03/23/21 08:00 DC 03/22/21 08:04 Clonazepam (KlonoPIN) 1 mg DAILY PO 03/23/21 09:00 03/26/21 15:27 DC 03/26/21 08:33 Clonazepam (KlonoPIN) 0.5 mg DAILY PO 03/29/21 09:00 03/26/21 15:27 DC Clonazepam (KlonoPIN) 1.5 mg HS PO 03/20/21 21:00 03/25/21 21:01 DC 03/25/21 19:56 Clonazepam (KlonoPIN) 1 mg QHS PO 03/26/21 21:00 03/26/21 15:27 DC Clonazepam (KlonoPIN) 0.5 mg HS PO 04/01/21 21:00 03/26/21 15:27 DC Lorazepam (Ativan) 1 mg BID PO 03/17/21 21:00 03/19/21 21:01 DC 03/19/21 08:13 Lorazepam (Ativan) 1 mg DAILY PO 03/20/21 09:00 03/22/21 08:59 DC 03/21/21 08:36 Clonazepam (KlonoPIN) 0.5 mg DAILY PO 03/27/21 09:00 03/28/21 21:00 DC 03/28/21 08:28 Clozapine (Clozaril) 25 mg HS PO 03/29/21 21:00 04/01/21 16:44 DC 03/31/21 20:26 Clozapine (Clozaril) 50 mg HS PO 04/01/21 21:00 04/08/21 16:58 DC 04/07/21 20:08 Ropinirole HCl (Requip) 1 mg HS PO 04/05/21 21:00 04/17/21 20:23 Clozapine (Clozaril) 75 mg HS PO 04/08/21 21:00 04/15/21 14:23 DC 04/14/21 20:43 Fluphenazine HCl (Prolixin) 15 mg HS PO 04/13/21 21:00 04/17/21 20:24 Fluphenazine HCl (Prolixin) 10 mg DAILY PO 04/14/21 09:00 04/17/21 08:19 Clozapine (Clozaril) 100 mg HS PO 04/15/21 21:00 04/17/21 20:24 I have reviewed the current psychotropics carefully including drug interactions. Risk benefit ratio favors no change other than as noted in my dictated progress note. Diagnosis: Problems: (1) Anxiety disorder (2) Impulse control disorder (3) Schizoaffective disorder, chronic condition with acute exacerbation BESSIE SOLORIO MD Apr 17, 2021 22:23
--- NOTE | 2021-04-17 23:28 | NUR ---
Pt in dayroom this evening repeatedly asking to lay down. Pt irritable and argumentative. Compliant with whole medications after stating that she was taking the wrong pills and they were going to kill her. PRN Tramadol administered per pt request.
[2021-04-18 05:49] VITALS: BP 122/73
[2021-04-18] MEDS: NICOTINE 21MG PATCH. TD SCH (08:17)
[2021-04-18] MEDS: ATORVASTATIN CALCIUM 20 MG TABLET PO SCH (08:17)
[2021-04-18] MEDS: ASPIRIN CHEWABLE 81 MG TABLET. PO SCH (08:17)
[2021-04-18] MEDS: CELECOXIB 100 MG CAPSULE PO SCH (08:18)
[2021-04-18] MEDS: LISINOPRIL 10 MG TABLET PO SCH (08:18)
[2021-04-18] MEDS: POTASSIUM CHLORIDE 10 MEQ TABLET.ER. PO SCH (08:18)
[2021-04-18] MEDS: ASCORBIC ACID 500 MG TABLET PO SCH ×2 (08:18→21:16)
[2021-04-18] MEDS: LACTOBACILLUS RHAMNOSUS GG 1 CAPSULE. PO SCH ×2 (08:18→21:16)
[2021-04-18] MEDS: FERROUS SULFATE 325 MG TABLET. PO SCH ×2 (08:18→21:16)
[2021-04-18] MEDS: PANTOPRAZOLE 40 MG TABLET. PO SCH (08:18)
[2021-04-18] MEDS: metFORMIN 500 MG TABLET PO SCH ×2 (08:18→17:09)
[2021-04-18] MEDS: GABAPENTIN 100 MG CAPSULE. PO SCH ×3 (08:19→21:16)
[2021-04-18] MEDS: DIVALPROEX ER 500 MG TAB.ER.24H PO SCH ×2 (08:19→21:17)
[2021-04-18] MEDS: METOPROLOL TART IMMED RELEASE 25 MG TABLET. PO SCH ×2 (08:19→21:17)
[2021-04-18] MEDS: BENZTROPINE MESYLATE 1 MG TABLET PO SCH ×2 (08:19→21:17)
[2021-04-18] MEDS: TROLAMINE SALICYLATE 10% TOPICAL CREAM 85GM JAR. TP SCH ×3 (08:22→21:00)
--- NOTE | 2021-04-18 11:44 | NUR ---
Treatment team note: Pt is eating roughly 75% of meals and sleeping on average 7 hours per night. Pt is resistive to meds with continual arguments on why she does not need them. Pt does eventually take them with staff coaxing and explaining why pt needs them. Pt refused nursing assessment this morning and told her nurse that she is a paraplegic. Pt has attended 5 groups with minimal participation and has exhibited a short attention span often leaving in the middle of groups. Pt had her Clozaril increased on Thursday and will need follow-up labs within 7 days. Due to pt agitation and aggression towards a peer, discharge will be moved to Monday 04/23. SW to work with pt guardian and the facility on finalizing discharge plans.
--- NOTE | 2021-04-18 11:54 | TX PLAN ---
Interdisciplinary Tx Plan Admission Information Mar 14, 2021 at 19:55 Legal Status (on Admission): Voluntary DPOA/Guardian Name: Coral Walters Contact Other Contact Name: Deshawn on Other Contact Verified Code Status: Full Code Allergies: Coded Allergies: haloperidol (Verified Allergy, Intermediate, 12/21/15) Diagnoses Primary Diagnosis: Schizoaffective D/O Bipolar type, mixed with psychotic features Reasons for Admission: Delusions, Sig. Change Sleep, Poor impulse control, Other Problem in Patient's Words: "I have nothing right now". Additional Admission Comments: According to the intake, pt is labile/manic AEB having crying fits, screaming then randomly singing, exit seeking, refusing cares, not sleeping, eloped and refusion meds. Pt is delusional thinking staff and male peer are trying to have sex with her. Problems Active Problems: resistive to cares labile delusional somatic complaints Inactive Problems: mostly medication compliant Pt Strengths/Limitations Ability for Lindsay: Poor Cognitive Functioning/Ability: Fair Communication Skills/Ability: Fair Financial Resources: Poor Insight/Judgement: Poor Intellectual Ability: Fair Physical Health: Poor Social Skills: Poor Stability in Family: Poor Stability in School/Work: Poor Verbal Skills: Fair Discharge Criteria Discharge Criteria: No need for close observ., Adequate arrangements @DC, Improved behavior, Improved mood/thought Preliminary Discharge Plan Preliminary DC Plan: Current Living Arrange. Special Precautions Fall Risk: Moderate Initial D/C Plan Pt to return to [facility] on once stable. Identified Discharge Needs: Psychiatric services Currently Utilized Resources Currently Utilized Resources/P: Primary Care Physician Referrals Community Resources: Psychiatric follow-up Identified Problems/Hx/Goals Objectives/Short-Term Goals Short Term Goals: Dec. Hallucination/Delus, Dec. Outbursts, Medication Stabilization, Monitor Med Effects, Promote Coping Skill, Other Short Term Goals in Patient's: N/A Interventions/Frequency Staff Interventions/Frequency&: Psychiatrist to assess pt at least 3x per week for medication management. Social Work to assess pt at least 2x per week to identify barriers to care and dishcarge planning goals. Nursing to assess medication effects, behavior modification and completion of 15 minute checks daily. 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 Education: Pt reports that she received her Associates degree but had over 30 years of education that she could have had a Bachelors degree Community Follow-up Primary Care Physician Referral for psychiatric follow-up Treatment Plan Explained Patient/Home Teaching Grades 7 And 8 Teacher had this treatment plan explained to him/her as indicated by the signature below and has been given the opportunity to ask questions and make suggestions: Date: Patient/Home Teaching Grades 7 And 8 Teacher Signature: Status Update Update Pt is eating roughly 75% of meals and sleeping on average 7 hours per night. Pt is resistive to meds with continual arguments on why she does not need them. Pt does eventually take them with staff coaxing and explaining why pt needs them. Pt refused nursing assessment this morning and told her nurse that she is a paraplegic. Pt has attended 5 groups with minimal participation and has exhibited a short attention span often leaving in the middle of groups. Pt had her Clozaril increased on Thursday and will need follow-up labs within 7 days. Due to pt agitation and aggression towards a peer, discharge will be moved to Monday 04/23. SW to work with pt guardian and the facility on finalizing discharge plans. KIMBERLY MCKEON Apr 18, 2021 11:54
--- NOTE | 2021-04-18 12:11 | NUR ---
WEEKLY ACTIVITY THERAPY NOTE Date of Admission: 03/14/2021 Date of AT Assessment: 03/15 Precipitating behaviors that initiated intake and admission: crying fits, screaming, singing, labile mood, manic, insomnia, "wild eyed stare", eloped from facility, refusing medications, delusional- thinks staff and male peer are trying to have sex with her. Goal aimed: to increase engagement and socialization Initial Goal:Pt. will participate in at least one Activity Therapy group per day. Goal repeated 04/04 Weekly progress towards goal: did not achieve Group participation level: 2 min, 2 mod, 1 full Weekly highlights: hot cocoa during meet the need groups , sang and participated in country bingo Thursday, cleaned flower bed Thursday Behaviors observed: wandering around, limited attention span, snacks and exercises Thursday Plan: no change to goal Beneficial adaptations: encouragement
--- NOTE | 2021-04-18 12:58 | NUR ---
FATOUMATA contacted Emma at [facility] on and informed her that pt would not look towards discharge on Thursday. FATOUMATA will fax Emma information/updates on pt today.
[2021-04-18] MEDS: risperiDONE 2 MG TABLET. PO SCH ×2 (14:24→21:16)
[2021-04-18 15:51] VITALS: BP 126/78
--- NOTE | 2021-04-18 16:19 | NUR ---
Nursing note: Patient in dinning room at time of AM med pass and assessment, medication taken whole. She is very suspicious about her pills. She is oriented to self, time, & place. Patient denies pain or discomfort at this time. She self propels in wheel chair and can transfer without assistance but refuses to when it is time for her to go to the bathroom requiring standby assist. She is currently sitting in the day room. Will continue to monitor.
[2021-04-18] MEDS: cloZAPine 100 MG TABLET PO SCH (21:16)
[2021-04-18] MEDS: rOPINIRole 1 MG TABLET. PO SCH (21:17)
--- NOTE | 2021-04-18 22:02 | PDOC ---
Exam Note: Timothy Note: Please also refer to the separate dictated note~for this date of service dictated separately.~Patient seen individually. Discussed the patient with Nursing staff reviewed the chart.~Reviewed interim history and current functioning. Reviewed vital signs,~Labs/ Radiology~and current medications noted below. Continue current treatment with the changes noted in the dictated addendum note Assessment: Vital Signs/I&O: Vital Signs Date Time Temp Pulse Resp B/P (MAP) Pulse Ox O2 Delivery O2 Flow Rate FiO2 04/18/21 21:17 81 126/78 04/18/21 15:51 97.2 22 92 04/17/21 16:24 Room Air I & O 04/17/21 04/17/21 04/18/21 15:00 23:00 07:00 Intake Total 680 ml 990 ml Balance 680 ml 990 ml Current Medications: Meds: Current Medications Medications (Trade) Dose Ordered Sig/Arnold Route PRN Reason Start Time Stop Time Status Last Admin Dose Admin Acetaminophen (Tylenol) 650 mg PRN Q6HRS PRN PO MILD PAIN / TEMP > 100.3'F 03/14/21 20:45 04/15/21 12:37 Multi-Ingredient Ointment (Analgesic [place]) 1 shwetha PRN QID PRN TP MUSCLE PAIN 03/14/21 20:45 Al Hydroxide/Mg Hydroxide (Mylanta Plus Xs) 15 ml PRN AFTMEALHC PRN PO DYSPEPSIA 03/14/21 20:45 Magnesium Hydroxide (Milk Of Magnesia) 2,400 mg PRN QHS PRN PO CONSTIPATION 03/14/21 20:45 Acetaminophen (Tylenol) 650 mg TID PRN PO Back Pain 03/14/21 21:45 UNV Ascorbic Acid (Vitamin C) 500 mg BID PO 03/15/21 09:00 04/18/21 21:16 Aspirin (Aspirin Chewable) 81 mg DAILY PO 03/15/21 09:00 04/18/21 08:17 Atorvastatin Calcium (Lipitor) 20 mg DAILY PO 03/15/21 09:00 04/18/21 08:17 Carbidopa/Levodopa (Sinemet 10/100) 1 tab TID PO 03/14/21 23:00 03/23/21 13:44 DC 03/23/21 13:34 Vitamin D (Vitamin D3) 50,000 unit QWE PO 03/20/21 16:00 04/17/21 08:16 Ferrous Sulfate (Feosol) 325 mg BID PO 03/15/21 09:00 04/18/21 21:16 Furosemide (Lasix) 20 mg DAILY PO 03/15/21 09:00 04/02/21 15:34 DC 04/02/21 08:37 Gabapentin (Neurontin Oral Soln) 150 mg BID@1400,2200 PO 03/14/21 23:00 03/16/21 13:20 DC 03/14/21 23:14 Lisinopril (Prinivil) 10 mg DAILY PO 03/15/21 09:00 04/18/21 08:18 Metformin HCl (Glucophage) 500 mg BIDWMEALS PO 03/15/21 08:00 04/18/21 17:09 Metoprolol Tartrate (Lopressor) 12.5 mg BID PO 03/14/21 23:00 04/18/21 21:17 Tramadol HCl (Ultram) 50 mg PRN Q6HRS PRN PO MOD-SEV PAIN 03/14/21 21:45 04/17/21 20:22 Celecoxib (CeleBREX) 200 mg DAILY PO 03/15/21 09:00 04/18/21 08:18 Lactobacillus Rhamnosus (Culturelle) 1 cap BID PO 03/14/21 23:00 04/18/21 21:16 Pantoprazole Sodium (Protonix) 40 mg DAILY PO 03/15/21 09:00 04/18/21 08:18 Potassium Chloride (Klor-Con) 10 meq DAILY PO 03/15/21 09:00 04/18/21 08:18 Trolamine Salicylate (Myoplex) 1 shwetha TID TP 03/15/21 09:00 04/18/21 21:00 Benztropine Mesylate (Cogentin) 1 mg BID PO 03/14/21 23:00 04/18/21 21:17 Clonazepam (KlonoPIN) 2 mg BID PO 03/14/21 23:00 03/16/21 16:48 DC 03/16/21 09:00 Divalproex Sodium (Depakote Er) 1,000 mg BID PO 03/14/21 23:00 04/18/21 21:17 Fluphenazine HCl (Prolixin) 15 mg BID PO 03/14/21 23:00 04/13/21 17:20 DC 04/13/21 08:36 Lorazepam (Ativan) 1 mg TID PO 03/14/21 23:00 03/16/21 18:45 DC 03/16/21 14:00 Risperidone (RisperDAL) 2 mg DAILY@1400 PO 03/15/21 14:00 04/18/21 14:24 Risperidone (RisperDAL) 4 mg QHS PO 03/14/21 23:00 04/18/21 21:16 Nicotine (Nicoderm Cq 21mg Patch) 1 patch DAILY TD 03/15/21 09:00 04/18/21 08:17 Gabapentin (Neurontin) 100 mg TID PO 03/16/21 14:00 04/18/21 21:16 Ropinirole HCl (Requip) 0.5 mg TID PO 03/16/21 21:00 04/05/21 17:12 DC 04/05/21 09:01 Clonazepam (KlonoPIN) 2 mg HS PO 03/16/21 21:00 03/19/21 21:01 DC 03/18/21 21:13 Clonazepam (KlonoPIN) 1.5 mg DAILY PO 03/17/21 09:00 03/23/21 08:00 DC 03/22/21 08:04 Clonazepam (KlonoPIN) 1 mg DAILY PO 03/23/21 09:00 03/26/21 15:27 DC 03/26/21 08:33 Clonazepam (KlonoPIN) 0.5 mg DAILY PO 03/29/21 09:00 03/26/21 15:27 DC Clonazepam (KlonoPIN) 1.5 mg HS PO 03/20/21 21:00 03/25/21 21:01 DC 03/25/21 19:56 Clonazepam (KlonoPIN) 1 mg QHS PO 03/26/21 21:00 03/26/21 15:27 DC Clonazepam (KlonoPIN) 0.5 mg HS PO 04/01/21 21:00 03/26/21 15:27 DC Lorazepam (Ativan) 1 mg BID PO 03/17/21 21:00 03/19/21 21:01 DC 03/19/21 08:13 Lorazepam (Ativan) 1 mg DAILY PO 03/20/21 09:00 03/22/21 08:59 DC 03/21/21 08:36 Clonazepam (KlonoPIN) 0.5 mg DAILY PO 03/27/21 09:00 03/28/21 21:00 DC 03/28/21 08:28 Clozapine (Clozaril) 25 mg HS PO 03/29/21 21:00 04/01/21 16:44 DC 03/31/21 20:26 Clozapine (Clozaril) 50 mg HS PO 04/01/21 21:00 04/08/21 16:58 DC 04/07/21 20:08 Ropinirole HCl (Requip) 1 mg HS PO 04/05/21 21:00 04/18/21 21:17 Clozapine (Clozaril) 75 mg HS PO 04/08/21 21:00 04/15/21 14:23 DC 04/14/21 20:43 Fluphenazine HCl (Prolixin) 15 mg HS PO 04/13/21 21:00 04/18/21 21:16 Fluphenazine HCl (Prolixin) 10 mg DAILY PO 04/14/21 09:00 04/18/21 08:19 Clozapine (Clozaril) 100 mg HS PO 04/15/21 21:00 04/18/21 21:16 I have reviewed the current psychotropics carefully including drug interactions. Risk benefit ratio favors no change other than as noted in my dictated progress note. Diagnosis: Problems: (1) Anxiety disorder (2) Impulse control disorder (3) Schizoaffective disorder, chronic condition with acute exacerbation BESSIE SOLORIO MD Apr 18, 2021 22:02
--- NOTE | 2021-04-19 03:45 | NUR ---
Patient spent the time awake on her wheelchair in the day hoffman watching TV and interacting with staff and peers with no signs of aggression or other behaviors. She was compliant with her night medications, complaining to the nurse about the numerous medications she takes and how large some of the pills are. Nurse educated patient on the need for her medications explainin g to her why she is taking each of them. Patient voiced understanding but still insisted the pills are too many.
[2021-04-19 06:45] VITALS: BP 146/80
[2021-04-19] MEDS: metFORMIN 500 MG TABLET PO SCH ×2 (08:25→17:00)
[2021-04-19] MEDS: ASPIRIN CHEWABLE 81 MG TABLET. PO SCH (08:25)
[2021-04-19] MEDS: DIVALPROEX ER 500 MG TAB.ER.24H PO SCH (08:25)
[2021-04-19] MEDS: PANTOPRAZOLE 40 MG TABLET. PO SCH (08:25)
[2021-04-19] MEDS: LISINOPRIL 10 MG TABLET PO SCH (08:26)
[2021-04-19] MEDS: GABAPENTIN 100 MG CAPSULE. PO SCH ×2 (08:26→13:22)
[2021-04-19] MEDS: CELECOXIB 100 MG CAPSULE PO SCH (08:26)
[2021-04-19] MEDS: BENZTROPINE MESYLATE 1 MG TABLET PO SCH (08:26)
[2021-04-19] MEDS: ATORVASTATIN CALCIUM 20 MG TABLET PO SCH (08:26)
[2021-04-19] MEDS: METOPROLOL TART IMMED RELEASE 25 MG TABLET. PO SCH (08:27)
[2021-04-19] MEDS: ASCORBIC ACID 500 MG TABLET PO SCH (08:27)
[2021-04-19] MEDS: FERROUS SULFATE 325 MG TABLET. PO SCH (08:28)
[2021-04-19] MEDS: NICOTINE 21MG PATCH. TD SCH (08:28)
[2021-04-19] MEDS: LACTOBACILLUS RHAMNOSUS GG 1 CAPSULE. PO SCH (08:28)
[2021-04-19] MEDS: POTASSIUM CHLORIDE 10 MEQ TABLET.ER. PO SCH (08:28)
[2021-04-19] MEDS: TROLAMINE SALICYLATE 10% TOPICAL CREAM 85GM JAR. TP SCH ×2 (08:34→13:23)
--- NOTE | 2021-04-19 08:42 | PDOC ---
Exam Note: Timothy Note: This note is a late entry for 04/17/2021 covers elements not covered in my initial note. Subjective: The patient was seen individually in the evening of 04/17/2021 with Erma DORAN, discussed and reviewed the chart. She slept 7 hours previous night. The patient has been quite somatic, anxious, complains of ongoing pain. She has received Ultram and did better after this. She is more compliant with her medications. Review of Systems: Ambulation impaired in wheelchair. No CV, , pulmonary, eye, ENT system symptoms on review. Mental Status Exam: The patient is oriented reasonably to herself and situation. Speech coherent and at times pressured. Abstraction fair. Computation impaired. Language function intact. Attention span short. Mood and affect somewhat anxious, labile. She is still paranoid, but less so than before. Laboratory Data: Reviewed. Impression: Schizoaffective disorder bipolar type, mixed with psychotic features. Anxiety disorder unspecified. Impulse control disorder unspecified. Plan: Continue psychotropics from initial note. We will continue to increase Clozaril as clinically indicated. Assessment: Vital Signs/I&O: Vital Signs Date Time Temp Pulse Resp B/P (MAP) Pulse Ox O2 Delivery O2 Flow Rate FiO2 04/19/21 08:27 76 146/80 04/19/21 06:45 98.1 18 91 Room Air I & O 04/18/21 04/18/21 04/19/21 15:00 23:00 07:00 Intake Total 720 ml 720 ml Balance 720 ml 720 ml Current Medications: Meds: Current Medications Medications (Trade) Dose Ordered Sig/Arnold Route PRN Reason Start Time Stop Time Status Last Admin Dose Admin Acetaminophen (Tylenol) 650 mg PRN Q6HRS PRN PO MILD PAIN / TEMP > 100.3'F 03/14/21 20:45 04/15/21 12:37 Multi-Ingredient Ointment (Analgesic [place]) 1 shwetha PRN QID PRN TP MUSCLE PAIN 03/14/21 20:45 Al Hydroxide/Mg Hydroxide (Mylanta Plus Xs) 15 ml PRN AFTMEALHC PRN PO DYSPEPSIA 03/14/21 20:45 Magnesium Hydroxide (Milk Of Magnesia) 2,400 mg PRN QHS PRN PO CONSTIPATION 03/14/21 20:45 Acetaminophen (Tylenol) 650 mg TID PRN PO Back Pain 03/14/21 21:45 UNV Ascorbic Acid (Vitamin C) 500 mg BID PO 03/15/21 09:00 04/19/21 08:27 Aspirin (Aspirin Chewable) 81 mg DAILY PO 03/15/21 09:00 04/19/21 08:25 Atorvastatin Calcium (Lipitor) 20 mg DAILY PO 03/15/21 09:00 04/19/21 08:26 Carbidopa/Levodopa (Sinemet 10/100) 1 tab TID PO 03/14/21 23:00 03/23/21 13:44 DC 03/23/21 13:34 Vitamin D (Vitamin D3) 50,000 unit QWE PO 03/20/21 16:00 04/17/21 08:16 Ferrous Sulfate (Feosol) 325 mg BID PO 03/15/21 09:00 04/19/21 08:28 Furosemide (Lasix) 20 mg DAILY PO 03/15/21 09:00 04/02/21 15:34 DC 04/02/21 08:37 Gabapentin (Neurontin Oral Soln) 150 mg BID@1400,2200 PO 03/14/21 23:00 03/16/21 13:20 DC 03/14/21 23:14 Lisinopril (Prinivil) 10 mg DAILY PO 03/15/21 09:00 04/19/21 08:26 Metformin HCl (Glucophage) 500 mg BIDWMEALS PO 03/15/21 08:00 04/19/21 08:25 Metoprolol Tartrate (Lopressor) 12.5 mg BID PO 03/14/21 23:00 04/19/21 08:27 Tramadol HCl (Ultram) 50 mg PRN Q6HRS PRN PO MOD-SEV PAIN 03/14/21 21:45 04/17/21 20:22 Celecoxib (CeleBREX) 200 mg DAILY PO 03/15/21 09:00 04/19/21 08:26 Lactobacillus Rhamnosus (Culturelle) 1 cap BID PO 03/14/21 23:00 04/19/21 08:28 Pantoprazole Sodium (Protonix) 40 mg DAILY PO 03/15/21 09:00 04/19/21 08:25 Potassium Chloride (Klor-Con) 10 meq DAILY PO 03/15/21 09:00 04/19/21 08:28 Trolamine Salicylate (Myoplex) 1 shwetha TID TP 03/15/21 09:00 04/19/21 08:34 Benztropine Mesylate (Cogentin) 1 mg BID PO 03/14/21 23:00 04/19/21 08:26 Clonazepam (KlonoPIN) 2 mg BID PO 03/14/21 23:00 03/16/21 16:48 DC 03/16/21 09:00 Divalproex Sodium (Depakote Er) 1,000 mg BID PO 03/14/21 23:00 04/19/21 08:25 Fluphenazine HCl (Prolixin) 15 mg BID PO 03/14/21 23:00 04/13/21 17:20 DC 04/13/21 08:36 Lorazepam (Ativan) 1 mg TID PO 03/14/21 23:00 03/16/21 18:45 DC 03/16/21 14:00 Risperidone (RisperDAL) 2 mg DAILY@1400 PO 03/15/21 14:00 04/18/21 14:24 Risperidone (RisperDAL) 4 mg QHS PO 03/14/21 23:00 04/18/21 21:16 Nicotine (Nicoderm Cq 21mg Patch) 1 patch DAILY TD 03/15/21 09:00 04/19/21 08:28 Gabapentin (Neurontin) 100 mg TID PO 03/16/21 14:00 04/19/21 08:26 Ropinirole HCl (Requip) 0.5 mg TID PO 03/16/21 21:00 04/05/21 17:12 DC 04/05/21 09:01 Clonazepam (KlonoPIN) 2 mg HS PO 03/16/21 21:00 03/19/21 21:01 DC 03/18/21 21:13 Clonazepam (KlonoPIN) 1.5 mg DAILY PO 03/17/21 09:00 03/23/21 08:00 DC 03/22/21 08:04 Clonazepam (KlonoPIN) 1 mg DAILY PO 03/23/21 09:00 03/26/21 15:27 DC 03/26/21 08:33 Clonazepam (KlonoPIN) 0.5 mg DAILY PO 03/29/21 09:00 03/26/21 15:27 DC Clonazepam (KlonoPIN) 1.5 mg HS PO 03/20/21 21:00 03/25/21 21:01 DC 03/25/21 19:56 Clonazepam (KlonoPIN) 1 mg QHS PO 03/26/21 21:00 03/26/21 15:27 DC Clonazepam (KlonoPIN) 0.5 mg HS PO 04/01/21 21:00 03/26/21 15:27 DC Lorazepam (Ativan) 1 mg BID PO 03/17/21 21:00 03/19/21 21:01 DC 03/19/21 08:13 Lorazepam (Ativan) 1 mg DAILY PO 03/20/21 09:00 03/22/21 08:59 DC 03/21/21 08:36 Clonazepam (KlonoPIN) 0.5 mg DAILY PO 03/27/21 09:00 03/28/21 21:00 DC 03/28/21 08:28 Clozapine (Clozaril) 25 mg HS PO 03/29/21 21:00 04/01/21 16:44 DC 03/31/21 20:26 Clozapine (Clozaril) 50 mg HS PO 04/01/21 21:00 04/08/21 16:58 DC 04/07/21 20:08 Ropinirole HCl (Requip) 1 mg HS PO 04/05/21 21:00 04/18/21 21:17 Clozapine (Clozaril) 75 mg HS PO 04/08/21 21:00 04/15/21 14:23 DC 04/14/21 20:43 Fluphenazine HCl (Prolixin) 15 mg HS PO 04/13/21 21:00 04/18/21 21:16 Fluphenazine HCl (Prolixin) 10 mg DAILY PO 04/14/21 09:00 04/19/21 08:27 Clozapine (Clozaril) 100 mg HS PO 04/15/21 21:00 04/18/21 21:16 I have reviewed the current psychotropics carefully including drug interactions. Risk benefit ratio favors no change other than as noted in my dictated progress note. Diagnosis: Problems: (1) Anxiety disorder (2) Impulse control disorder (3) Schizoaffective disorder, chronic condition with acute exacerbation BESSIE SOLORIO MD Apr 19, 2021 08:42
--- NOTE | 2021-04-19 09:10 | PDOC ---
Exam Note: Timothy Note: This note is a late entry for 04/18/2021 covers elements not covered in my initial note. Subjective: The patient was seen individually in the morning of 04/18/2021 for a treatment team meeting with Jennifer Hill, Sharon Rivera (high school social studies tutor), Mar, activity therapy and Alfreda DORAN, discussed and reviewed the chart. She slept 7-1/2 hours previous night. The patient often refuses medications, has attended 5 groups in the past week with minimal engagement. She continues to obsess about getting too many medications. I met with her in her room in the evening and discussed with her how we are gradually reducing the Prolixin while adjusting the Clozaril. Review of Systems: Ambulation impaired in wheelchair. No CV, , pulmonary, eye, ENT system symptoms on review. Mental Status Exam: The patient is oriented reasonably to herself and situation. This evening she was pleasant, interactive with me, still paranoid, somewhat distractible. Speech coherent and at times pressured. Abstraction fair. Computation impaired. Language function intact. Attention span short. Mood and affect somewhat anxious, labile. No suicidal or homicidal ideation. Laboratory Data: Reviewed. Impression: Schizoaffective disorder bipolar type, mixed with psychotic features. Anxiety disorder unspecified. Impulse control disorder unspecified. Plan: Continue psychotropics from initial note. Continue to gradually increase Clozaril. Reduce the Prolixin. Assessment: Vital Signs/I&O: Vital Signs Date Time Temp Pulse Resp B/P (MAP) Pulse Ox O2 Delivery O2 Flow Rate FiO2 04/19/21 08:27 76 146/80 04/19/21 06:45 98.1 18 91 Room Air I & O 04/18/21 04/18/21 04/19/21 15:00 23:00 07:00 Intake Total 720 ml 720 ml Balance 720 ml 720 ml Current Medications: Meds: Current Medications Medications (Trade) Dose Ordered Sig/Arnold Route PRN Reason Start Time Stop Time Status Last Admin Dose Admin Acetaminophen (Tylenol) 650 mg PRN Q6HRS PRN PO MILD PAIN / TEMP > 100.3'F 03/14/21 20:45 04/15/21 12:37 Multi-Ingredient Ointment (Analgesic [place]) 1 shwetha PRN QID PRN TP MUSCLE PAIN 03/14/21 20:45 Al Hydroxide/Mg Hydroxide (Mylanta Plus Xs) 15 ml PRN AFTMEALHC PRN PO DYSPEPSIA 03/14/21 20:45 Magnesium Hydroxide (Milk Of Magnesia) 2,400 mg PRN QHS PRN PO CONSTIPATION 03/14/21 20:45 Acetaminophen (Tylenol) 650 mg TID PRN PO Back Pain 03/14/21 21:45 UNV Ascorbic Acid (Vitamin C) 500 mg BID PO 03/15/21 09:00 04/19/21 08:27 Aspirin (Aspirin Chewable) 81 mg DAILY PO 03/15/21 09:00 04/19/21 08:25 Atorvastatin Calcium (Lipitor) 20 mg DAILY PO 03/15/21 09:00 04/19/21 08:26 Carbidopa/Levodopa (Sinemet 10/100) 1 tab TID PO 03/14/21 23:00 03/23/21 13:44 DC 03/23/21 13:34 Vitamin D (Vitamin D3) 50,000 unit QWE PO 03/20/21 16:00 04/17/21 08:16 Ferrous Sulfate (Feosol) 325 mg BID PO 03/15/21 09:00 04/19/21 08:28 Furosemide (Lasix) 20 mg DAILY PO 03/15/21 09:00 04/02/21 15:34 DC 04/02/21 08:37 Gabapentin (Neurontin Oral Soln) 150 mg BID@1400,2200 PO 03/14/21 23:00 03/16/21 13:20 DC 03/14/21 23:14 Lisinopril (Prinivil) 10 mg DAILY PO 03/15/21 09:00 04/19/21 08:26 Metformin HCl (Glucophage) 500 mg BIDWMEALS PO 03/15/21 08:00 04/19/21 08:25 Metoprolol Tartrate (Lopressor) 12.5 mg BID PO 03/14/21 23:00 04/19/21 08:27 Tramadol HCl (Ultram) 50 mg PRN Q6HRS PRN PO MOD-SEV PAIN 03/14/21 21:45 04/17/21 20:22 Celecoxib (CeleBREX) 200 mg DAILY PO 03/15/21 09:00 04/19/21 08:26 Lactobacillus Rhamnosus (Culturelle) 1 cap BID PO 03/14/21 23:00 04/19/21 08:28 Pantoprazole Sodium (Protonix) 40 mg DAILY PO 03/15/21 09:00 04/19/21 08:25 Potassium Chloride (Klor-Con) 10 meq DAILY PO 03/15/21 09:00 04/19/21 08:28 Trolamine Salicylate (Myoplex) 1 shwetha TID TP 03/15/21 09:00 04/19/21 08:34 Benztropine Mesylate (Cogentin) 1 mg BID PO 03/14/21 23:00 04/19/21 08:26 Clonazepam (KlonoPIN) 2 mg BID PO 03/14/21 23:00 03/16/21 16:48 DC 03/16/21 09:00 Divalproex Sodium (Depakote Er) 1,000 mg BID PO 03/14/21 23:00 04/19/21 08:25 Fluphenazine HCl (Prolixin) 15 mg BID PO 03/14/21 23:00 04/13/21 17:20 DC 04/13/21 08:36 Lorazepam (Ativan) 1 mg TID PO 03/14/21 23:00 03/16/21 18:45 DC 03/16/21 14:00 Risperidone (RisperDAL) 2 mg DAILY@1400 PO 03/15/21 14:00 04/18/21 14:24 Risperidone (RisperDAL) 4 mg QHS PO 03/14/21 23:00 04/18/21 21:16 Nicotine (Nicoderm Cq 21mg Patch) 1 patch DAILY TD 03/15/21 09:00 04/19/21 08:28 Gabapentin (Neurontin) 100 mg TID PO 03/16/21 14:00 04/19/21 08:26 Ropinirole HCl (Requip) 0.5 mg TID PO 03/16/21 21:00 04/05/21 17:12 DC 04/05/21 09:01 Clonazepam (KlonoPIN) 2 mg HS PO 03/16/21 21:00 03/19/21 21:01 DC 03/18/21 21:13 Clonazepam (KlonoPIN) 1.5 mg DAILY PO 03/17/21 09:00 03/23/21 08:00 DC 03/22/21 08:04 Clonazepam (KlonoPIN) 1 mg DAILY PO 03/23/21 09:00 03/26/21 15:27 DC 03/26/21 08:33 Clonazepam (KlonoPIN) 0.5 mg DAILY PO 03/29/21 09:00 03/26/21 15:27 DC Clonazepam (KlonoPIN) 1.5 mg HS PO 03/20/21 21:00 03/25/21 21:01 DC 03/25/21 19:56 Clonazepam (KlonoPIN) 1 mg QHS PO 03/26/21 21:00 03/26/21 15:27 DC Clonazepam (KlonoPIN) 0.5 mg HS PO 04/01/21 21:00 03/26/21 15:27 DC Lorazepam (Ativan) 1 mg BID PO 03/17/21 21:00 03/19/21 21:01 DC 03/19/21 08:13 Lorazepam (Ativan) 1 mg DAILY PO 03/20/21 09:00 03/22/21 08:59 DC 03/21/21 08:36 Clonazepam (KlonoPIN) 0.5 mg DAILY PO 03/27/21 09:00 03/28/21 21:00 DC 03/28/21 08:28 Clozapine (Clozaril) 25 mg HS PO 03/29/21 21:00 04/01/21 16:44 DC 03/31/21 20:26 Clozapine (Clozaril) 50 mg HS PO 04/01/21 21:00 04/08/21 16:58 DC 04/07/21 20:08 Ropinirole HCl (Requip) 1 mg HS PO 04/05/21 21:00 04/18/21 21:17 Clozapine (Clozaril) 75 mg HS PO 04/08/21 21:00 04/15/21 14:23 DC 04/14/21 20:43 Fluphenazine HCl (Prolixin) 15 mg HS PO 04/13/21 21:00 04/18/21 21:16 Fluphenazine HCl (Prolixin) 10 mg DAILY PO 04/14/21 09:00 04/19/21 08:27 Clozapine (Clozaril) 100 mg HS PO 04/15/21 21:00 04/18/21 21:16 I have reviewed the current psychotropics carefully including drug interactions. Risk benefit ratio favors no change other than as noted in my dictated progress note. Diagnosis: Problems: (1) Anxiety disorder (2) Impulse control disorder (3) Schizoaffective disorder, chronic condition with acute exacerbation BESSIE SOLORIO MD Apr 19, 2021 09:10
[2021-04-19] MEDS: risperiDONE 2 MG TABLET. PO SCH (13:22)
[2021-04-19 16:02] VITALS: BP 116/77
--- NOTE | 2021-04-19 19:10 | NUR ---
Tobacco Discharge Note [facility] Tobacco Hotline called with patient prior to discharge, YES Tobacco cessation medication listed with current medications for discharge. YES Transition Record was faxed to follow-up provider with the following elements: Reason for admission, procedures, tests, principal diagnosis, pending studies, patient instructions, 20/04 contact information for unit, phone number to obtain pending test results, plan for follow-up care, physician follow-up, advanced directive information, and medication list with dose, duration and instructions. This information was included in the following documents: History and physical, lab results, study results, progress notes, social work planning form, DC instruction form, patient visit summary, and medication reconciliation form. Date & time record faxed: 04/19/20211919 Record faxed to: [address] Record discussed with/ report given to: ANDREEA Dias
--- NOTE | 2021-04-19 22:20 | PDOC ---
Exam Note: Timothy Note: Please also refer to the separate dictated note~for this date of service dictated separately.~Patient seen individually. Discussed the patient with Nursing staff reviewed the chart.~Reviewed interim history and current functioning. Reviewed vital signs,~Labs/ Radiology~and current medications noted below. Continue current treatment with the changes noted in the dictated addendum note Assessment: Vital Signs/I&O: Vital Signs Date Time Temp Pulse Resp B/P (MAP) Pulse Ox O2 Delivery O2 Flow Rate FiO2 04/19/21 16:02 98.2 84 18 116/77 (90) 96 Room Air I & O 04/18/21 04/18/21 04/19/21 14:59 22:59 06:59 Intake Total 720 ml 720 ml Balance 720 ml 720 ml Current Medications: Meds: Current Medications Medications (Trade) Dose Ordered Sig/Arnold Route PRN Reason Start Time Stop Time Status Last Admin Dose Admin Acetaminophen (Tylenol) 650 mg PRN Q6HRS PRN PO MILD PAIN / TEMP > 100.3'F 03/14/21 20:45 04/19/21 19:32 DC 04/15/21 12:37 Multi-Ingredient Ointment (Analgesic Riva) 1 shwetha PRN QID PRN TP MUSCLE PAIN 03/14/21 20:45 04/19/21 19:32 DC Al Hydroxide/Mg Hydroxide (Mylanta Plus Xs) 15 ml PRN AFTMEALHC PRN PO DYSPEPSIA 03/14/21 20:45 04/19/21 19:32 DC Magnesium Hydroxide (Milk Of Magnesia) 2,400 mg PRN QHS PRN PO CONSTIPATION 03/14/21 20:45 04/19/21 19:32 DC Acetaminophen (Tylenol) 650 mg TID PRN PO Back Pain 03/14/21 21:45 UNV Ascorbic Acid (Vitamin C) 500 mg BID PO 03/15/21 09:00 04/19/21 19:32 DC 04/19/21 08:27 Aspirin (Aspirin Chewable) 81 mg DAILY PO 03/15/21 09:00 04/19/21 19:32 DC 04/19/21 08:25 Atorvastatin Calcium (Lipitor) 20 mg DAILY PO 03/15/21 09:00 04/19/21 19:32 DC 04/19/21 08:26 Carbidopa/Levodopa (Sinemet 10/100) 1 tab TID PO 03/14/21 23:00 03/23/21 13:44 DC 03/23/21 13:34 Vitamin D (Vitamin D3) 50,000 unit QWE PO 03/20/21 16:00 04/19/21 19:32 DC 04/17/21 08:16 Ferrous Sulfate (Feosol) 325 mg BID PO 03/15/21 09:00 04/19/21 19:32 DC 04/19/21 08:28 Furosemide (Lasix) 20 mg DAILY PO 03/15/21 09:00 04/02/21 15:34 DC 04/02/21 08:37 Gabapentin (Neurontin Oral Soln) 150 mg BID@1400,2200 PO 03/14/21 23:00 03/16/21 13:20 DC 03/14/21 23:14 Lisinopril (Prinivil) 10 mg DAILY PO 03/15/21 09:00 04/19/21 19:32 DC 04/19/21 08:26 Metformin HCl (Glucophage) 500 mg BIDWMEALS PO 03/15/21 08:00 04/19/21 19:32 DC 04/19/21 17:00 Metoprolol Tartrate (Lopressor) 12.5 mg BID PO 03/14/21 23:00 04/19/21 19:32 DC 04/19/21 08:27 Tramadol HCl (Ultram) 50 mg PRN Q6HRS PRN PO MOD-SEV PAIN 03/14/21 21:45 04/19/21 19:32 DC 04/17/21 20:22 Celecoxib (CeleBREX) 200 mg DAILY PO 03/15/21 09:00 04/19/21 19:32 DC 04/19/21 08:26 Lactobacillus Rhamnosus (Culturelle) 1 cap BID PO 03/14/21 23:00 04/19/21 19:32 DC 04/19/21 08:28 Pantoprazole Sodium (Protonix) 40 mg DAILY PO 03/15/21 09:00 04/19/21 19:32 DC 04/19/21 08:25 Potassium Chloride (Klor-Con) 10 meq DAILY PO 03/15/21 09:00 04/19/21 19:32 DC 04/19/21 08:28 Trolamine Salicylate (Myoplex) 1 shwetha TID TP 03/15/21 09:00 04/19/21 19:32 DC 04/19/21 13:23 Benztropine Mesylate (Cogentin) 1 mg BID PO 03/14/21 23:00 04/19/21 19:32 DC 04/19/21 08:26 Clonazepam (KlonoPIN) 2 mg BID PO 03/14/21 23:00 03/16/21 16:48 DC 03/16/21 09:00 Divalproex Sodium (Depakote Er) 1,000 mg BID PO 03/14/21 23:00 04/19/21 19:32 DC 04/19/21 08:25 Fluphenazine HCl (Prolixin) 15 mg BID PO 03/14/21 23:00 04/13/21 17:20 DC 04/13/21 08:36 Lorazepam (Ativan) 1 mg TID PO 03/14/21 23:00 03/16/21 18:45 DC 03/16/21 14:00 Risperidone (RisperDAL) 2 mg DAILY@1400 PO 03/15/21 14:00 04/19/21 19:32 DC 04/19/21 13:22 Risperidone (RisperDAL) 4 mg QHS PO 03/14/21 23:00 04/19/21 19:32 DC 04/18/21 21:16 Nicotine (Nicoderm Cq 21mg Patch) 1 patch DAILY TD 03/15/21 09:00 04/19/21 19:32 DC 04/19/21 08:28 Gabapentin (Neurontin) 100 mg TID PO 03/16/21 14:00 04/19/21 19:32 DC 04/19/21 13:22 Ropinirole HCl (Requip) 0.5 mg TID PO 03/16/21 21:00 04/05/21 17:12 DC 04/05/21 09:01 Clonazepam (KlonoPIN) 2 mg HS PO 03/16/21 21:00 03/19/21 21:01 DC 03/18/21 21:13 Clonazepam (KlonoPIN) 1.5 mg DAILY PO 03/17/21 09:00 03/23/21 08:00 DC 03/22/21 08:04 Clonazepam (KlonoPIN) 1 mg DAILY PO 03/23/21 09:00 03/26/21 15:27 DC 03/26/21 08:33 Clonazepam (KlonoPIN) 0.5 mg DAILY PO 03/29/21 09:00 03/26/21 15:27 DC Clonazepam (KlonoPIN) 1.5 mg HS PO 03/20/21 21:00 03/25/21 21:01 DC 03/25/21 19:56 Clonazepam (KlonoPIN) 1 mg QHS PO 03/26/21 21:00 03/26/21 15:27 DC Clonazepam (KlonoPIN) 0.5 mg HS PO 04/01/21 21:00 03/26/21 15:27 DC Lorazepam (Ativan) 1 mg BID PO 03/17/21 21:00 03/19/21 21:01 DC 03/19/21 08:13 Lorazepam (Ativan) 1 mg DAILY PO 03/20/21 09:00 03/22/21 08:59 DC 03/21/21 08:36 Clonazepam (KlonoPIN) 0.5 mg DAILY PO 03/27/21 09:00 03/28/21 21:00 DC 03/28/21 08:28 Clozapine (Clozaril) 25 mg HS PO 03/29/21 21:00 04/01/21 16:44 DC 03/31/21 20:26 Clozapine (Clozaril) 50 mg HS PO 04/01/21 21:00 04/08/21 16:58 DC 04/07/21 20:08 Ropinirole HCl (Requip) 1 mg HS PO 04/05/21 21:00 04/19/21 19:32 DC 04/18/21 21:17 Clozapine (Clozaril) 75 mg HS PO 04/08/21 21:00 04/15/21 14:23 DC 04/14/21 20:43 Fluphenazine HCl (Prolixin) 15 mg HS PO 04/13/21 21:00 04/19/21 19:32 DC 04/18/21 21:16 Fluphenazine HCl (Prolixin) 10 mg DAILY PO 04/14/21 09:00 04/19/21 19:32 DC 04/19/21 08:27 Clozapine (Clozaril) 100 mg HS PO 04/15/21 21:00 04/19/21 19:32 DC 04/18/21 21:16 I have reviewed the current psychotropics carefully including drug interactions. Risk benefit ratio favors no change other than as noted in my dictated progress note. Diagnosis: Problems: (1) Anxiety disorder (2) Impulse control disorder (3) Schizoaffective disorder, chronic condition with acute exacerbation BESSIE SOLORIO MD Apr 19, 2021 22:20
--- NOTE | 2021-04-20 23:07 | DS ---
DATE OF DISCHARGE: 04/19/2021 This is a late entry, date of service, 04/19/2021 covers elements not covered in my initial note of 04/19/2021. REASON FOR ADMISSION: The patient is a 56-year-old female referred to us from [facility] on [address] [place] [address] in [place], [place] by her primary care physician on account of an acute exacerbation of her schizoaffective disorder, bipolar type with psychotic features. She was having crying fits with marked mood lability, screaming, singing, marked insomnia, had a "wide eyed stare." She did elope from the facility, refusing medication, delusional, thinking staff and male peer trying to have sex with her. She had failed outpatient psychiatric interventions resulting in this referral. SIGNIFICANT FINDINGS AND CLINICAL COURSE: Following admission, the patient was seen daily individually by myself from a psychiatric standpoint, medical followup with Dr. Rosas/Dr. Claros. The patient was extremely psychotic, hyperverbal, sexually inappropriate with another male peer on the unit, disruptive with marked mood lability. She seemed to have an acute exacerbation of schizoaffective disorder, bipolar type, mixed with psychotic features. Adjustments were made in her psychotropics and she seemed to respond to a combination of Depakote ER 1000 mg b.i.d., valproic acid level therapeutic at 84. She was started on Clozaril given her prior failures on various atypical antipsychotics and this was gradually increased to 100 mg at bedtime. Prolixin was consequently reduced from 15 mg b.i.d. to 10 mg a.m., 15 mg at bedtime. Valproic acid level therapeutic at 84, Requip 1 mg at bedtime started for her restless legs. She is also on Risperdal 2 mg at 1404 mg at bedtime, gabapentin 100 mg t.i.d. Gradually, her mood appeared to improve, but fevers, chills; adjusting her psychotropics. On a routine COVID-19 screening, she turned up positive and was discharged to transition to the medical-surgical floor. We would be happy to reassess for her to be readmitted if clinically indicated when she is medically stable. CONDITION ON DISCHARGE: Improved. REVIEW OF SYSTEMS: Prior to discharge review of systems, ambulation impaired, in wheelchair. No CV, , pulmonary, eye, ENT system symptoms on review. MENTAL STATUS EXAMINATION: Alert, oriented. Speech coherent, rapid, but less so than before. Abstraction fair. Computation impaired. Language function intact. Mood and affect somewhat withdrawn. LABORATORY DATA: Reviewed. FINAL DIAGNOSES: Schizoaffective disorder, bipolar type, mixed with psychotic features, in partial remission; anxiety disorder, unspecified; impulse control disorder, unspecified. DISCHARGE MEDICATIONS: Please refer to the MRAD. DISCHARGE FOLLOW UP: Psychiatric and medical follow up on [facility] medical-surgical floor. We will reassess her for admission to our unit if clinically indicated when she is medically stable. Time for discharge day management greater than [address]: Aryan TID: [id number]
--- NOTE | 2021-05-03 06:33 | PDOC ---
Exam Note: Timothy Note: This is an addendum to the discharge summary of Ruthy Motta dictated on 05/01/2021 since at the time of discharge the patient was on two routine antipsychotics medication, Fluphenazine and Risperidone. She had failed prior antipsychotics including single agents and this is the reason for using the two in combination. Once the patient has been stable for about 90 days on the Clozaril, the Fluphenazine can be tapered and discontinued and later an attempt can be made to taper and stop the Risperidone. The final decision of this is deferred to her treating psychiatrist as an outpatient. Current Medications: Meds: Current Medications Medications (Trade) Dose Ordered Sig/Arnold Route PRN Reason Start Time Stop Time Status Last Admin Dose Admin Acetaminophen (Tylenol) 650 mg PRN Q6HRS PRN PO MILD PAIN / TEMP > 100.3'F 03/14/21 20:45 04/19/21 19:32 DC 04/15/21 12:37 Multi-Ingredient Ointment (Analgesic Mckenna) 1 shwetha PRN QID PRN TP MUSCLE PAIN 03/14/21 20:45 04/19/21 19:32 DC Al Hydroxide/Mg Hydroxide (Mylanta Plus Xs) 15 ml PRN AFTMEALHC PRN PO DYSPEPSIA 03/14/21 20:45 04/19/21 19:32 DC Magnesium Hydroxide (Milk Of Magnesia) 2,400 mg PRN QHS PRN PO CONSTIPATION 03/14/21 20:45 04/19/21 19:32 DC Acetaminophen (Tylenol) 650 mg TID PRN PO Back Pain 03/14/21 21:45 UNV Ascorbic Acid (Vitamin C) 500 mg BID PO 03/15/21 09:00 04/19/21 19:32 DC 04/19/21 08:27 Aspirin (Aspirin Chewable) 81 mg DAILY PO 03/15/21 09:00 04/19/21 19:32 DC 04/19/21 08:25 Atorvastatin Calcium (Lipitor) 20 mg DAILY PO 03/15/21 09:00 04/19/21 19:32 DC 04/19/21 08:26 Carbidopa/Levodopa (Sinemet 10/100) 1 tab TID PO 03/14/21 23:00 03/23/21 13:44 DC 03/23/21 13:34 Vitamin D (Vitamin D3) 50,000 unit QWE PO 03/20/21 16:00 04/19/21 19:32 DC 04/17/21 08:16 Ferrous Sulfate (Feosol) 325 mg BID PO 03/15/21 09:00 04/19/21 19:32 DC 04/19/21 08:28 Furosemide (Lasix) 20 mg DAILY PO 03/15/21 09:00 04/02/21 15:34 DC 04/02/21 08:37 Gabapentin (Neurontin Oral Soln) 150 mg BID@1400,2200 PO 03/14/21 23:00 03/16/21 13:20 DC 03/14/21 23:14 Lisinopril (Prinivil) 10 mg DAILY PO 03/15/21 09:00 04/19/21 19:32 DC 04/19/21 08:26 Metformin HCl (Glucophage) 500 mg BIDWMEALS PO 03/15/21 08:00 04/19/21 19:32 DC 04/19/21 17:00 Metoprolol Tartrate (Lopressor) 12.5 mg BID PO 03/14/21 23:00 04/19/21 19:32 DC 04/19/21 08:27 Tramadol HCl (Ultram) 50 mg PRN Q6HRS PRN PO MOD-SEV PAIN 03/14/21 21:45 04/19/21 19:32 DC 04/17/21 20:22 Celecoxib (CeleBREX) 200 mg DAILY PO 03/15/21 09:00 04/19/21 19:32 DC 04/19/21 08:26 Lactobacillus Rhamnosus (Culturelle) 1 cap BID PO 03/14/21 23:00 04/19/21 19:32 DC 04/19/21 08:28 Pantoprazole Sodium (Protonix) 40 mg DAILY PO 03/15/21 09:00 04/19/21 19:32 DC 04/19/21 08:25 Potassium Chloride (Klor-Con) 10 meq DAILY PO 03/15/21 09:00 04/19/21 19:32 DC 04/19/21 08:28 Trolamine Salicylate (Myoplex) 1 shwetha TID TP 03/15/21 09:00 04/19/21 19:32 DC 04/19/21 13:23 Benztropine Mesylate (Cogentin) 1 mg BID PO 03/14/21 23:00 04/19/21 19:32 DC 04/19/21 08:26 Clonazepam (KlonoPIN) 2 mg BID PO 03/14/21 23:00 03/16/21 16:48 DC 03/16/21 09:00 Divalproex Sodium (Depakote Er) 1,000 mg BID PO 03/14/21 23:00 04/19/21 19:32 DC 04/19/21 08:25 Fluphenazine HCl (Prolixin) 15 mg BID PO 03/14/21 23:00 04/13/21 17:20 DC 04/13/21 08:36 Lorazepam (Ativan) 1 mg TID PO 03/14/21 23:00 03/16/21 18:45 DC 03/16/21 14:00 Risperidone (RisperDAL) 2 mg DAILY@1400 PO 03/15/21 14:00 04/19/21 19:32 DC 04/19/21 13:22 Risperidone (RisperDAL) 4 mg QHS PO 03/14/21 23:00 04/19/21 19:32 DC 04/18/21 21:16 Nicotine (Nicoderm Cq 21mg Patch) 1 patch DAILY TD 03/15/21 09:00 04/19/21 19:32 DC 04/19/21 08:28 Gabapentin (Neurontin) 100 mg TID PO 03/16/21 14:00 04/19/21 19:32 DC 04/19/21 13:22 Ropinirole HCl (Requip) 0.5 mg TID PO 03/16/21 21:00 04/05/21 17:12 DC 04/05/21 09:01 Clonazepam (KlonoPIN) 2 mg HS PO 03/16/21 21:00 03/19/21 21:01 DC 03/18/21 21:13 Clonazepam (KlonoPIN) 1.5 mg DAILY PO 03/17/21 09:00 03/23/21 08:00 DC 03/22/21 08:04 Clonazepam (KlonoPIN) 1 mg DAILY PO 03/23/21 09:00 03/26/21 15:27 DC 03/26/21 08:33 Clonazepam (KlonoPIN) 0.5 mg DAILY PO 03/29/21 09:00 03/26/21 15:27 DC Clonazepam (KlonoPIN) 1.5 mg HS PO 03/20/21 21:00 03/25/21 21:01 DC 03/25/21 19:56 Clonazepam (KlonoPIN) 1 mg QHS PO 03/26/21 21:00 03/26/21 15:27 DC Clonazepam (KlonoPIN) 0.5 mg HS PO 04/01/21 21:00 03/26/21 15:27 DC Lorazepam (Ativan) 1 mg BID PO 03/17/21 21:00 03/19/21 21:01 DC 03/19/21 08:13 Lorazepam (Ativan) 1 mg DAILY PO 03/20/21 09:00 03/22/21 08:59 DC 03/21/21 08:36 Clonazepam (KlonoPIN) 0.5 mg DAILY PO 03/27/21 09:00 03/28/21 21:00 DC 03/28/21 08:28 Clozapine (Clozaril) 25 mg HS PO 03/29/21 21:00 04/01/21 16:44 DC 03/31/21 20:26 Clozapine (Clozaril) 50 mg HS PO 04/01/21 21:00 04/08/21 16:58 DC 04/07/21 20:08 Ropinirole HCl (Requip) 1 mg HS PO 04/05/21 21:00 04/19/21 19:32 DC 04/18/21 21:17 Clozapine (Clozaril) 75 mg HS PO 04/08/21 21:00 04/15/21 14:23 DC 04/14/21 20:43 Fluphenazine HCl (Prolixin) 15 mg HS PO 04/13/21 21:00 04/19/21 19:32 DC 04/18/21 21:16 Fluphenazine HCl (Prolixin) 10 mg DAILY PO 04/14/21 09:00 04/19/21 19:32 DC 04/19/21 08:27 Clozapine (Clozaril) 100 mg HS PO 04/15/21 21:00 04/19/21 19:32 DC 04/18/21 21:16 I have reviewed the current psychotropics carefully including drug interactions. Risk benefit ratio favors no change other than as noted in my dictated progress note. Diagnosis: Problems: (1) Anxiety disorder (2) Impulse control disorder (3) Schizoaffective disorder, chronic condition with acute exacerbation (4) Psychosis, atypical BESSIE SOLORIO MD May 03, 2021 06:33
== END 2021-04-19 19:32 | disposition short-term general hospital (02) | DRG 885 ==
LOC: ER 14:39 → GEROPSY 19:55
PROVIDERS: ADMIT Psychiatry & Neurology Psychiatry; ATTEND Psychiatry & Neurology Psychiatry
DX: F25.0 Schizoaffective disorder, bipolar type (principal); U07.1 COVID-19; F63.9 Impulse disorder, unspecified; E78.5 Hyperlipidemia, unspecified; D64.9 Anemia, unspecified; E03.9 Hypothyroidism, unspecified; E11.42 Type 2 diabetes mellitus with diabetic polyneuropathy; F02.80 Dementia in other diseases classified elsewhere, unspecified severity, without behavioral disturbance, psychotic disturbance, mood disturbance, and anxiety; F41.9 Anxiety disorder, unspecified; G20 Parkinson's disease; G25.81 Restless legs syndrome; G89.29 Other chronic pain; I10 Essential (primary) hypertension; K21.9 Gastro-esophageal reflux disease without esophagitis; Z02.89 Encounter for other administrative examinations; Z79.899 Other long term (current) drug therapy; Z91.19 Patient's noncompliance with other medical treatment and regimen
CPT/HCPCS: 36415; 80048; 80053; 80061; 80164; 81001; 82306; 82607; 82947; 83036; 83540; 83550; 83735; 84436; 84443; 84480; 85007; 85025; 85379; 86592; 99407; U0005; 97530; 99285-25

== ENCOUNTER 2021-04-19 19:32 | Inpatient (IN) | payer MEDICARE, MEDICAID ==
[~2021-04-19] VITALS: Ht 157.5 cm; Wt 90.0 kg
[~2021-04-19 19:32] MED LIST changes: +ATOR20TA58 PO; +BENZ1TAB5 PO; +CARB1TAB33 PO; +FURO20TA3 PO; +GABA250S6 PO; +LORA-254 PO; +METF500T16 PO; +POTA10TA5 PO; +RISP2TAB33 PO; +RISP4TAB35 PO; +TRAM50TA PO; +TROL35.4 TP
[2021-04-19 21:23] VITALS: BP 171/91
[2021-04-19] MEDS ORDERED: ACETAMINOPHEN 325 MG TABLET PO PRN (21:30)
[2021-04-19] MEDS ORDERED: traMADol 50 MG TABLET PO PRN (21:30)
[2021-04-19] MEDS: LORazepam 1 MG TABLET PO SCH (23:27)
[2021-04-19] MEDS: clonazePAM 2 MG TABLET PO SCH (23:27)
[2021-04-19] MEDS: GABAPENTIN 100 MG CAPSULE. PO SCH (23:27)
[2021-04-19] MEDS: METOPROLOL TART IMMED RELEASE 25 MG TABLET. PO SCH (23:28)
[2021-04-19] MEDS: DIVALPROEX ER 500 MG TAB.ER.24H PO SCH (23:28)
[2021-04-19] MEDS: FERROUS SULFATE 325 MG TABLET. PO SCH (23:28)
[2021-04-19] MEDS: rOPINIRole 1 MG TABLET. PO SCH (23:28)
[2021-04-19] MEDS: risperiDONE 2 MG TABLET. PO SCH (23:30)
[2021-04-19] MEDS: CARBIDOPA/LEVODOPA 10/100MG TABLET PO SCH (23:30)
[2021-04-19] MEDS: BENZTROPINE MESYLATE 1 MG TABLET PO SCH (23:31)
[2021-04-20 00:41] VITALS: BP 179/97
[2021-04-20 06:13] VITALS: BP 185/98
[2021-04-20] MEDS: metFORMIN 500 MG TABLET PO SCH ×2 (08:00→15:15)
[2021-04-20] MEDS: CARBIDOPA/LEVODOPA 10/100MG TABLET PO SCH ×4 (09:00→21:00)
[2021-04-20] MEDS: BENZTROPINE MESYLATE 1 MG TABLET PO SCH ×3 (09:00→21:00)
[2021-04-20] MEDS: GABAPENTIN 100 MG CAPSULE. PO SCH ×4 (09:00→21:00)
[2021-04-20] MEDS: ATORVASTATIN CALCIUM 20 MG TABLET PO SCH ×2 (09:00→10:39)
[2021-04-20] MEDS: clonazePAM 2 MG TABLET PO SCH ×3 (09:00→21:00)
[2021-04-20] MEDS: LORazepam 1 MG TABLET PO SCH ×4 (09:00→21:00)
[2021-04-20] MEDS: ASCORBIC ACID 500 MG TABLET PO SCH ×3 (09:00→21:00)
[2021-04-20] MEDS: FUROSEMIDE 20 MG TABLET PO SCH ×2 (09:00→10:40)
[2021-04-20] MEDS: LACTOBACILLUS RHAMNOSUS GG 1 CAPSULE. PO SCH ×3 (09:00→21:00)
[2021-04-20] MEDS: CELECOXIB 100 MG CAPSULE PO SCH ×2 (09:00→10:41)
[2021-04-20] MEDS: POTASSIUM CHLORIDE 10 MEQ TABLET.ER. PO SCH (09:00)
[2021-04-20] MEDS: ASPIRIN CHEWABLE 81 MG TABLET. PO SCH ×2 (09:00→10:40)
[2021-04-20] MEDS: FERROUS SULFATE 325 MG TABLET. PO SCH ×3 (09:00→21:00)
[2021-04-20] MEDS: TROLAMINE SALICYLATE 10% TOPICAL CREAM 85GM JAR. TP SCH ×3 (09:00→21:00)
[2021-04-20] MEDS: PANTOPRAZOLE 40 MG TABLET. PO SCH ×2 (09:00→10:42)
[2021-04-20] MEDS: DIVALPROEX ER 500 MG TAB.ER.24H PO SCH ×3 (09:00→21:00)
[2021-04-20 10:00] VITALS: BP 131/73
[2021-04-20] MEDS: LISINOPRIL 10 MG TABLET PO SCH ×2 (10:40→15:33)
[2021-04-20] MEDS: METOPROLOL TART IMMED RELEASE 25 MG TABLET. PO SCH ×3 (10:42→21:00)
--- NOTE | 2021-04-20 12:39 | HP ---
ATTENDING PHYSICIAN: Bernabe Claros MD We are asked to admit this patient for medical management after she tested positive for coronavirus. HISTORY OF PRESENT ILLNESS: The patient is a 56-year-old white female from a fpc in [place], [place]. [facility] being admitted on 03/15/2021. She has a longstanding history of dementia, delusional behavior, behavioral issue, some paranoia. PAST MEDICAL HISTORY: Significant for essential hypertension, hyperlipidemia, type 2 diabetes, hypothyroidism, peripheral neuropathy, and gastroesophageal reflux disease. ALLERGIES: SHE IS ALLERGIC TO HALDOL, REACTION IS UNCLEAR. CURRENT MEDICATIONS: Include vitamin C, aspirin, Lipitor, benztropine, Sinemet, Celebrex, cholecalciferol, clonazepam, Depakote, ferrous sulfate, fluphenazine, Lasix, Neurontin, lactobacillus, lisinopril, lorazepam, metformin, metoprolol, omeprazole, potassium, Risperdal, tramadol and aloe vera. SOCIAL HISTORY: She is a nonsmoker, nondrinker. FAMILY HISTORY: Unobtainable. REVIEW OF SYSTEMS: Unobtainable due to the patient's confusion. PHYSICAL EXAMINATION: GENERAL: When I saw her, this is a pleasant female who was at little insight into what is going on. VITAL SIGNS: Initial vital signs showed a blood pressure of 131/73, pulse is 70 and regular. She was afebrile, oxygen saturation 94% on room air. HEENT: Head is without trauma. Pupils are reactive. Sclerae nonicteric. NECK: Supple, rather full neck. No stridor. LUNGS: Good breath sounds. CARDIOVASCULAR: Showed regular heart tones. No gallops. ABDOMEN: Soft. EXTREMITIES: Without edema. NEUROLOGIC FUNCTION: Lethargic and sleepy, but arousable. SKIN: Warm and dry. PERTINENT LABORATORY STUDIES: Most recently were on the medical unit. Her serology was positive. She is asymptomatic for coronavirus infection, whether this is a false positive remains to be seen. ASSESSMENT: 1. A 56-year-old female with profound dementia. 2. Behavioral issues with paranoia. 3. COVID-19 infection without any symptoms at this time. 4. Parkinson's disease. 5. Hypothyroidism, on replacement. 6. Type 2 diabetes mellitus. 7. Peripheral neuropathy. 8. Gastroesophageal reflux disease. PLAN: 1. Admit to the medical unit. 2. I have reviewed her home meds and they will be continued. 3. We will eventually recheck her coronavirus swab. She has to have several negatives before she can return to her fpc in [place], [place]. MARIA DEL CARMEN/RENAN/IQB DR: MARIA DEL CARMEN/nancy TID: [id number] CC: BESSIE SOLORIO MD
[2021-04-20] MEDS: risperiDONE 2 MG TABLET. PO SCH ×2 (14:00→21:00)
[2021-04-20 15:20] VITALS: BP 157/90
[2021-04-20 20:57] VITALS: BP 114/69
[2021-04-20] MEDS: rOPINIRole 1 MG TABLET. PO SCH (21:00)
[2021-04-21 06:00] VITALS: BP 129/67
[2021-04-21] MEDS: POTASSIUM CHLORIDE 10 MEQ TABLET.ER. PO SCH (09:00)
[2021-04-21] MEDS: TROLAMINE SALICYLATE 10% TOPICAL CREAM 85GM JAR. TP SCH ×3 (09:00→21:00)
[2021-04-21] MEDS: CARBIDOPA/LEVODOPA 10/100MG TABLET PO SCH ×3 (09:02→21:25)
[2021-04-21] MEDS: clonazePAM 2 MG TABLET PO SCH ×2 (09:02→21:24)
[2021-04-21] MEDS: LACTOBACILLUS RHAMNOSUS GG 1 CAPSULE. PO SCH ×2 (09:03→21:24)
[2021-04-21] MEDS: FUROSEMIDE 20 MG TABLET PO SCH (09:03)
[2021-04-21] MEDS: METOPROLOL TART IMMED RELEASE 25 MG TABLET. PO SCH ×2 (09:03→21:24)
[2021-04-21] MEDS: DIVALPROEX ER 500 MG TAB.ER.24H PO SCH ×2 (09:04→21:24)
[2021-04-21] MEDS: metFORMIN 500 MG TABLET PO SCH ×2 (09:04→15:04)
[2021-04-21] MEDS: ATORVASTATIN CALCIUM 20 MG TABLET PO SCH (09:04)
[2021-04-21] MEDS: CELECOXIB 100 MG CAPSULE PO SCH (09:04)
[2021-04-21] MEDS: GABAPENTIN 100 MG CAPSULE. PO SCH ×3 (09:05→21:24)
[2021-04-21] MEDS: ASCORBIC ACID 500 MG TABLET PO SCH ×2 (09:05→21:24)
[2021-04-21] MEDS: FERROUS SULFATE 325 MG TABLET. PO SCH ×2 (09:05→21:24)
[2021-04-21] MEDS: LISINOPRIL 10 MG TABLET PO SCH (09:05)
[2021-04-21] MEDS: ASPIRIN CHEWABLE 81 MG TABLET. PO SCH (09:05)
[2021-04-21] MEDS: PANTOPRAZOLE 40 MG TABLET. PO SCH (09:05)
[2021-04-21] MEDS: BENZTROPINE MESYLATE 1 MG TABLET PO SCH ×2 (09:05→21:26)
[2021-04-21] MEDS: LORazepam 1 MG TABLET PO SCH ×3 (09:05→21:24)
[2021-04-21] MEDS: risperiDONE 2 MG TABLET. PO SCH ×2 (15:03→21:26)
--- NOTE | 2021-04-21 18:36 | PN ---
DATE: 04/21/2021 ATTENDING PHYSICIAN: Dr. Claros. SUBJECTIVE: Pleasantly confused. No new complaints. She has got some mild arthralgias. OBJECTIVE FINDINGS: VITAL SIGNS: Blood pressure this morning is 129/67. She is afebrile, oxygen saturation 94% on room air. HEENT: Head is without trauma. Pupils are reactive. Sclerae nonicteric. Oropharynx is clear. NECK: Supple. LUNGS: Clear with good breath sounds. CARDIOVASCULAR: Regular heart tones. ABDOMEN: Soft. EXTREMITIES: Without edema. NEUROLOGIC FUNCTION: More awake today, but pleasantly confused. ASSESSMENT: 1. A 56-year-old female with profound dementia. 2. Behavioral issues with paranoia. 3. Positive COVID-19 swab without any symptoms at this time. 4. Parkinson's disease. 5. Hypothyroidism, on replacement. 6. Type 2 diabetes. 7. Peripheral neuropathy. 8. History of gastroesophageal reflux disease. PLAN: 1. COVID-19 precautions and isolation. 2. Home meds have been reviewed and continued. 3. I would recommend re-swab next week for followup and determine whether this is a false positive. She has no symptoms at this time. DAVID DR: Augie TID: [id number]
[2021-04-21 18:43] VITALS: BP 144/88
[2021-04-21] MEDS: rOPINIRole 1 MG TABLET. PO SCH (21:23)
[2021-04-22 06:01] VITALS: BP 158/73
[2021-04-22] MEDS: ASPIRIN CHEWABLE 81 MG TABLET. PO SCH (08:51)
[2021-04-22] MEDS: FERROUS SULFATE 325 MG TABLET. PO SCH ×2 (08:51→20:03)
[2021-04-22] MEDS: metFORMIN 500 MG TABLET PO SCH ×2 (08:51→17:06)
[2021-04-22] MEDS: LORazepam 1 MG TABLET PO SCH ×3 (08:52→19:59)
[2021-04-22] MEDS: CELECOXIB 100 MG CAPSULE PO SCH (08:52)
[2021-04-22] MEDS: LACTOBACILLUS RHAMNOSUS GG 1 CAPSULE. PO SCH ×2 (08:52→19:59)
[2021-04-22] MEDS: clonazePAM 2 MG TABLET PO SCH ×2 (08:53→19:59)
[2021-04-22] MEDS: DIVALPROEX ER 500 MG TAB.ER.24H PO SCH ×2 (08:53→19:59)
[2021-04-22] MEDS: FUROSEMIDE 20 MG TABLET PO SCH (08:54)
[2021-04-22] MEDS: ATORVASTATIN CALCIUM 20 MG TABLET PO SCH (08:54)
[2021-04-22] MEDS: METOPROLOL TART IMMED RELEASE 25 MG TABLET. PO SCH ×2 (08:55→19:59)
[2021-04-22] MEDS: PANTOPRAZOLE 40 MG TABLET. PO SCH (08:55)
[2021-04-22] MEDS: LISINOPRIL 10 MG TABLET PO SCH (08:55)
[2021-04-22] MEDS: GABAPENTIN 100 MG CAPSULE. PO SCH ×3 (08:55→20:00)
[2021-04-22] MEDS: ASCORBIC ACID 500 MG TABLET PO SCH ×2 (08:55→20:02)
[2021-04-22] MEDS: POTASSIUM CHLORIDE 10 MEQ TABLET.ER. PO SCH (08:59)
[2021-04-22] MEDS: BENZTROPINE MESYLATE 1 MG TABLET PO SCH ×2 (08:59→19:59)
[2021-04-22] MEDS: CARBIDOPA/LEVODOPA 10/100MG TABLET PO SCH ×3 (08:59→20:04)
[2021-04-22] MEDS: TROLAMINE SALICYLATE 10% TOPICAL CREAM 85GM JAR. TP SCH ×3 (09:00→20:03)
[2021-04-22] MEDS: risperiDONE 2 MG TABLET. PO SCH ×2 (14:43→20:02)
[2021-04-22 19:07] VITALS: BP 103/63
[2021-04-22] MEDS: rOPINIRole 1 MG TABLET. PO SCH (20:00)
--- NOTE | 2021-04-23 04:18 | PN ---
DATE: 04/22/2021 ATTENDING PHYSICIAN: Dr. Claros SUBJECTIVE: The patient is confused, screaming out at nursing staff. She has no insight and does not understand what is going on. She has no pulmonary symptoms. OBJECTIVE FINDINGS: VITAL SIGNS: Blood pressure this morning is 144/88, pulse is 80 and regular. She is afebrile with a temperature of 98.4 degrees Fahrenheit and her oxygen saturating 96% on room air. HEENT: Head is without trauma. Pupils are reactive. Sclerae nonicteric. Oropharynx is clear. NECK: Supple, no bruits. LUNGS: Good breath sounds. CARDIOVASCULAR: Regular heart tones. ABDOMEN: Soft. EXTREMITIES: Trace edema. NEUROLOGIC: Profoundly confused, agitated and shouting. ASSESSMENT: A 56-year-old female with: 1. Profound dementia. 2. Behavioral issues with paranoia. 3. Positive COVID-19 swab without any symptoms at this time. 4. Parkinson's disease. 5. Hypothyroidism, on replacement. 6. Peripheral neuropathy. 7. Type 2 diabetes. 8. History of gastroesophageal reflux disease. PLAN: 1. COVID-19 precautions and isolation. 2. Home meds reviewed and continued. 3. We shall re-swab her this week and recheck her status. 4. Rest per Psychiatry and continue psychiatric meds. MARIA DEL CARMEN/IVET/CAMILO DR: Augie TID: [id number]
[2021-04-23 05:05] VITALS: BP 127/64
[2021-04-23 07:58] VITALS: BP 135/68
[2021-04-23] MEDS: ASPIRIN CHEWABLE 81 MG TABLET. PO SCH (08:36)
[2021-04-23] MEDS: LORazepam 1 MG TABLET PO SCH ×3 (08:36→20:12)
[2021-04-23] MEDS: FERROUS SULFATE 325 MG TABLET. PO SCH (08:36)
[2021-04-23] MEDS: clonazePAM 2 MG TABLET PO SCH ×2 (08:36→20:12)
[2021-04-23] MEDS: METOPROLOL TART IMMED RELEASE 25 MG TABLET. PO SCH ×2 (08:42→20:13)
[2021-04-23] MEDS: ATORVASTATIN CALCIUM 20 MG TABLET PO SCH (08:43)
[2021-04-23] MEDS: PANTOPRAZOLE 40 MG TABLET. PO SCH (08:43)
[2021-04-23] MEDS: GABAPENTIN 100 MG CAPSULE. PO SCH ×3 (08:43→20:12)
[2021-04-23] MEDS: FUROSEMIDE 20 MG TABLET PO SCH (08:43)
[2021-04-23] MEDS: CELECOXIB 100 MG CAPSULE PO SCH (08:44)
[2021-04-23] MEDS: LISINOPRIL 10 MG TABLET PO SCH (08:44)
[2021-04-23] MEDS: ASCORBIC ACID 500 MG TABLET PO SCH ×2 (08:44→20:12)
[2021-04-23] MEDS: DIVALPROEX ER 500 MG TAB.ER.24H PO SCH ×2 (08:45→20:12)
[2021-04-23] MEDS: POTASSIUM CHLORIDE 10 MEQ TABLET.ER. PO SCH (08:45)
[2021-04-23] MEDS: LACTOBACILLUS RHAMNOSUS GG 1 CAPSULE. PO SCH (08:45)
[2021-04-23] MEDS: metFORMIN 500 MG TABLET PO SCH ×2 (08:48→17:12)
[2021-04-23] MEDS: BENZTROPINE MESYLATE 1 MG TABLET PO SCH ×2 (08:48→20:13)
[2021-04-23] MEDS: CARBIDOPA/LEVODOPA 10/100MG TABLET PO SCH ×3 (08:49→20:14)
[2021-04-23] MEDS: TROLAMINE SALICYLATE 10% TOPICAL CREAM 85GM JAR. TP SCH ×3 (09:00→20:15)
[2021-04-23] MEDS: risperiDONE 2 MG TABLET. PO SCH ×2 (14:30→20:14)
[2021-04-23 18:26] VITALS: BP 117/64
[2021-04-23] MEDS: rOPINIRole 1 MG TABLET. PO SCH (20:13)
--- NOTE | 2021-04-23 21:48 | PN ---
DATE: 04/23/2021 ATTENDING PHYSICIAN: Dr. Claros. SUBJECTIVE: No new complaints. Resting comfortably. OBJECTIVE FINDINGS: VITAL SIGNS: Blood pressure today is 127/64, pulse is 70 and regular. She is afebrile. Oxygen saturation 93% on room air. HEENT: Head is without trauma. Pupils are reactive. Sclerae nonicteric. Oropharynx is clear. NECK: Supple, no bruits identified. LUNGS: Clear to auscultation. CARDIOVASCULAR: Regular heart tones. No gallops. ABDOMEN: Soft, nontender to palpation. EXTREMITIES: Show no edema. NEUROLOGIC: Profoundly confused, agitated, but calmer today. ASSESSMENT: 1. A 56-year-old female with profound dementia. 2. Behavioral issues with paranoia. 3. Positive COVID-19 swab with no symptoms at this time. 4. Parkinson's disease. 5. Hypothyroidism, on replacement. 6. Peripheral neuropathy. 7. Type 2 diabetes. 8. History of gastroesophageal reflux. PLAN: 1. Continue COVID-19 isolation precaution. 2. Diet as tolerated. 3. Home meds reviewed and simplified a bit. 4. We shall recheck her swab and ascertain status regarding her COVID infection. MARIA DEL CARMEN/ABDULAZIZ DR: Augie TID: [id number]
[2021-04-24 06:28] VITALS: BP 169/96
[2021-04-24] MEDS: ATORVASTATIN CALCIUM 20 MG TABLET PO SCH (08:09)
[2021-04-24] MEDS: clonazePAM 2 MG TABLET PO SCH ×2 (08:09→20:16)
[2021-04-24] MEDS: LORazepam 1 MG TABLET PO SCH ×3 (08:09→20:17)
[2021-04-24] MEDS: DIVALPROEX ER 500 MG TAB.ER.24H PO SCH ×2 (08:09→20:17)
[2021-04-24] MEDS: GABAPENTIN 100 MG CAPSULE. PO SCH ×3 (08:09→20:17)
[2021-04-24] MEDS: metFORMIN 500 MG TABLET PO SCH ×2 (08:10→17:03)
[2021-04-24] MEDS: ASCORBIC ACID 500 MG TABLET PO SCH ×2 (08:10→20:17)
[2021-04-24] MEDS: FUROSEMIDE 20 MG TABLET PO SCH (08:10)
[2021-04-24] MEDS: ASPIRIN CHEWABLE 81 MG TABLET. PO SCH (08:10)
[2021-04-24] MEDS: METOPROLOL TART IMMED RELEASE 25 MG TABLET. PO SCH ×2 (08:11→20:17)
[2021-04-24] MEDS: LISINOPRIL 10 MG TABLET PO SCH (08:11)
[2021-04-24] MEDS: PANTOPRAZOLE 40 MG TABLET. PO SCH (08:11)
[2021-04-24] MEDS: POTASSIUM CHLORIDE 10 MEQ TABLET.ER. PO SCH (08:13)
[2021-04-24] MEDS: CARBIDOPA/LEVODOPA 10/100MG TABLET PO SCH ×3 (08:25→20:19)
[2021-04-24] MEDS: BENZTROPINE MESYLATE 1 MG TABLET PO SCH ×2 (08:25→20:20)
[2021-04-24] MEDS: TROLAMINE SALICYLATE 10% TOPICAL CREAM 85GM JAR. TP SCH ×3 (08:26→20:19)
[2021-04-24] MEDS: risperiDONE 2 MG TABLET. PO SCH ×2 (14:00→20:18)
[2021-04-24] MEDS ORDERED: CHOLECALCIFEROL (VITAMIN D3) 50,000 UNIT CAPSULE PO SCH (16:00)
[2021-04-24 17:52] VITALS: BP 145/77
[2021-04-24] MEDS: rOPINIRole 1 MG TABLET. PO SCH (20:16)
--- NOTE | 2021-04-24 23:51 | PN ---
DATE: 04/24/2021 SUBJECTIVE: The patient is resting flat in bed, in no apparent respiratory distress. On questioning her, she denied any complaint. The nursing staff did not voice any concerns and stated that she had an uneventful night. PHYSICAL EXAMINATION: GENERAL: When I examined her, she was somewhat pale, but no jaundice, cyanosis or thyromegaly. No jugular venous distention. No limb edema. VITAL SIGNS: Her heart rate was 74, blood pressure 169/96, temperature was 96, respiratory rate was 18 and oxygen saturation was 91% on room air. HEAD, EYES, EARS, NOSE AND THROAT: Normocephalic, atraumatic. NECK: Supple. HEART: Showed normal first and second heart sounds, no gallop or murmur. CHEST: Clear to auscultation. No crepitation or rhonchi. ABDOMEN: Distended, soft, nontender. NEUROLOGIC: She has a tremor consistent with Parkinson's disease. She is otherwise grossly intact, although she is mostly bedbound, wheelchair bound. Her intake was 1100, no output was recorded. LABORATORY DATA: No lab works were ordered for her. ASSESSMENT: 1. Asymptomatic COVID-19 infection. 2. Parkinson disease. 3. Hypothyroidism. 4. Peripheral neuropathy. 5. Type 2 diabetes mellitus. 6. History of gastroesophageal reflux disease. 7. Behavioral issues with paranoia. 8. Profound dementia and paranoia. PLAN: My plan is obviously to continue with all her current medication. I will order baseline lab work and decide the further management accordingly. MARIAJOSE/JAYLENE DR: Froilan TID: [id number]
[2021-04-25] MEDS: clonazePAM 2 MG TABLET PO SCH ×2 (08:20→21:00)
[2021-04-25] MEDS: ASPIRIN CHEWABLE 81 MG TABLET. PO SCH (08:20)
[2021-04-25] MEDS: DIVALPROEX ER 500 MG TAB.ER.24H PO SCH ×2 (08:20→21:00)
[2021-04-25] MEDS: ASCORBIC ACID 500 MG TABLET PO SCH ×2 (08:20→21:00)
[2021-04-25] MEDS: LORazepam 1 MG TABLET PO SCH ×3 (08:21→21:00)
[2021-04-25] MEDS: POTASSIUM CHLORIDE 10 MEQ TABLET.ER. PO SCH (08:21)
[2021-04-25] MEDS: metFORMIN 500 MG TABLET PO SCH ×3 (08:21→17:38)
[2021-04-25] MEDS: PANTOPRAZOLE 40 MG TABLET. PO SCH (08:21)
[2021-04-25] MEDS: FUROSEMIDE 20 MG TABLET PO SCH (08:21)
[2021-04-25] MEDS: GABAPENTIN 100 MG CAPSULE. PO SCH ×3 (08:22→21:00)
[2021-04-25] MEDS: METOPROLOL TART IMMED RELEASE 25 MG TABLET. PO SCH ×2 (08:22→21:00)
[2021-04-25] MEDS: ATORVASTATIN CALCIUM 20 MG TABLET PO SCH (08:22)
[2021-04-25] MEDS: LISINOPRIL 10 MG TABLET PO SCH (08:23)
[2021-04-25 08:25] VITALS: BP 145/82
[2021-04-25] MEDS: CARBIDOPA/LEVODOPA 10/100MG TABLET PO SCH ×3 (08:27→21:00)
[2021-04-25] MEDS: BENZTROPINE MESYLATE 1 MG TABLET PO SCH ×2 (08:27→21:00)
[2021-04-25] MEDS: TROLAMINE SALICYLATE 10% TOPICAL CREAM 85GM JAR. TP SCH ×3 (08:30→21:00)
[2021-04-25] MEDS: risperiDONE 2 MG TABLET. PO SCH ×2 (13:47→21:00)
[2021-04-25 14:15] VITALS: BP 90/55
[2021-04-25] MEDS ORDERED: LIDOCAINE 2% VISCOUS 15 ML SOLUTION. MM ONE (14:30)
[2021-04-25 15:00] VITALS: BP 73/46
[2021-04-25] MEDS ORDERED: IV NORMAL SALINE 500ML 500 ML IV ONE (15:15)
[2021-04-25 15:45] VITALS: BP 132/69
[2021-04-25 16:49] LABS: ANION GAP 8 (6-14); BLOOD UREA NITROGEN 17 mg/dL (7-20); BUN/CREATININE RATIO 24 (6-20); CALCIUM 8.6 mg/dL (8.5-10.1); CARBON DIOXIDE 31 mmol/L (21-32); CHLORIDE 99 mmol/L (98-107); CREATININE 0.7 mg/dL (0.6-1.0); GFR 86.6; GLUCOSE 95 mg/dL (70-99); POTASSIUM 4.2 mmol/L (3.5-5.1); SODIUM 138 mmol/L (136-145)
[2021-04-25 16:54] LABS: ALBUMIN 2.9 g/dL (3.4-5.0); ALBUMIN/GLOBULIN RATIO 0.8 (1.0-1.7); ALK PHOS 70 U/L (46-116); AST (SGOT) 8 U/L (15-37); C REACTIVE PROTEIN 0.7 mg/L (0-3.3); TOTAL BILIRUBIN 0.2 mg/dL (0.2-1.0); TOTAL PROTEIN 6.4 g/dL (6.4-8.2)
[2021-04-25 16:56] LABS: BASO % 0 % (0-3); EOS # 0.2 x10^3/uL (0.0-0.7); EOS % 2 % (0-3); HEMOGLOBIN 10.8 g/dL (12.0-15.5); LYMPH # 2.1 x10^3/uL (1.0-4.8); LYMPH % 21 % (24-48); MEAN CORPUSCULAR HEMOGLOBIN 31 pg (25-35); MEAN CORPUSCULAR HGB CONC 33 g/dL (31-37); MEAN CORPUSCULAR VOLUME 94 fL (79-100); MONO # 1.3 x10^3/uL (0.0-1.1); MONO % 13 % (0-9); NEUT # 6.4 x10^3uL (1.8-7.7); NEUT % 64 % (31-73); PLATELET COUNT 189 x10^3/uL (140-400); RED CELL DISTRIBUTION WIDTH 15.7 % (11.5-14.5); WHITE BLOOD COUNT 9.9 x10^3/uL (4.0-11.0)
[2021-04-25 17:06] LABS: ALT (SGPT) < 6 U/L (14-59)
[2021-04-25 17:34] LABS: % BANDS 3 % (0-9); % LYMPHS 23 % (24-48); % METAS 1 % (0-0); % MONOS 15 % (0-10); % MYELOS 1 % (0-0); % SEGS 57 % (35-66)
[2021-04-25 17:38] LABS: PLT ESTIMATE ADEQUATE (ADEQUATE)
[2021-04-25] MEDS: rOPINIRole 1 MG TABLET. PO SCH (21:00)
[2021-04-25 21:36] VITALS: BP 109/77
[2021-04-26 07:38] VITALS: BP 112/67
[2021-04-26] MEDS: ASPIRIN CHEWABLE 81 MG TABLET. PO SCH (08:47)
[2021-04-26] MEDS: ASCORBIC ACID 500 MG TABLET PO SCH ×2 (08:47→22:08)
[2021-04-26] MEDS: DIVALPROEX ER 500 MG TAB.ER.24H PO SCH ×2 (08:48→22:10)
[2021-04-26] MEDS: GABAPENTIN 100 MG CAPSULE. PO SCH ×3 (08:49→22:11)
[2021-04-26] MEDS: ATORVASTATIN CALCIUM 20 MG TABLET PO SCH (08:49)
[2021-04-26] MEDS: metFORMIN 500 MG TABLET PO SCH ×2 (08:49→16:43)
[2021-04-26] MEDS: LISINOPRIL 10 MG TABLET PO SCH (08:49)
[2021-04-26] MEDS: clonazePAM 2 MG TABLET PO SCH ×2 (08:49→22:10)
[2021-04-26] MEDS: PANTOPRAZOLE 40 MG TABLET. PO SCH (08:49)
[2021-04-26] MEDS: POTASSIUM CHLORIDE 10 MEQ TABLET.ER. PO SCH (08:49)
[2021-04-26] MEDS: LORazepam 1 MG TABLET PO SCH ×3 (08:50→22:11)
[2021-04-26] MEDS: FUROSEMIDE 20 MG TABLET PO SCH (08:50)
[2021-04-26] MEDS: METOPROLOL TART IMMED RELEASE 25 MG TABLET. PO SCH ×2 (08:50→22:08)
[2021-04-26] MEDS: CARBIDOPA/LEVODOPA 10/100MG TABLET PO SCH ×3 (08:53→22:09)
[2021-04-26] MEDS: BENZTROPINE MESYLATE 1 MG TABLET PO SCH ×2 (08:53→22:12)
[2021-04-26] MEDS: TROLAMINE SALICYLATE 10% TOPICAL CREAM 85GM JAR. TP SCH ×3 (09:00→22:13)
--- NOTE | 2021-04-26 09:40 | PN ---
DATE: 04/25/2021 SUBJECTIVE: The patient is resting, slightly propped up in bed, in no apparent respiratory distress. She actually fell from her wheelchair, attempting to get into her bed and was found on the floor and we did use a Mariella lift to put her back in bed. One of her incisor teeth are very loose, and we did ask the nursing staff to apply some lidocaine viscous around it and we will probably pull it once it will anesthetize. Other than that her blood pressure was slightly low, so we ordered 0.5 liters of normal saline bolus. PHYSICAL EXAMINATION: GENERAL: When I examined her, she looked well and was clearly in no apparent respiratory distress. VITAL SIGNS: Her heart rate was 98, blood pressure was 73/46, temperature was 97.7, respiratory rate 20 and oxygen saturation was 93% on room air. HEAD, EYES, EARS, NOSE, AND THROAT: Normocephalic, atraumatic. NECK: Supple. HEART: Showed normal first and second heart sounds. No gallop, rub or murmur. CHEST: Clear to auscultation. No crepitation or rhonchi. ABDOMEN: Distended, soft and nontender. NEUROLOGIC: She was awake, alert and responding appropriately. She moves extremities without difficulty. She has severe parkinsonian tremors. Her intake over the last 24 hours was 1080. No output was recorded. I did order yesterday lab work for some reason. I will order some more labs today. ASSESSMENT: 1. Asymptomatic COVID-19 infection. 2. Parkinson's disease. 3. Hypothyroidism. 4. Peripheral neuropathy. 5. Type 2 diabetes mellitus. 6. History of gastroesophageal reflux disease. 7. Behavioral issues with paranoia. 8. Profound dementia and paranoia. PLAN: To probably extract her tooth that is very loose. Start IV fluid and we will order some stat labs to make sure that the patient is stable. MARIAJOSE/IVET/JEET DR: Froilan TID: [id number]
[2021-04-26] MEDS: risperiDONE 2 MG TABLET. PO SCH ×2 (13:47→22:11)
[2021-04-26 19:00] VITALS: BP 122/66
[2021-04-26] MEDS: rOPINIRole 1 MG TABLET. PO SCH (22:11)
--- NOTE | 2021-04-27 01:11 | PN ---
DATE: 04/26/2021 SUBJECTIVE: The patient is resting, slightly propped up in bed, in no apparent distress. On questioning her, denied any complaint. The nursing staff did not voice any concern except that she did some blood from her mouth after we extracted her loose tooth yesterday. Other than that, she remained hemodynamically stable and afebrile. OBJECTIVE: GENERAL: When I examined her, she was pale, no jaundice, cyanosis, no lymphadenopathy, no thyromegaly, no jugular venous distention. No limb edema. VITAL SIGNS: Her heart rate was 75, blood pressure is 112/67, temperature was 97.5, respiratory rate was 18 breaths per minute. Her oxygen saturation was 93% on room air. The rest of clinical exam is stable. LABORATORY DATA: Her D-dimer was only 0.26 and her chemistry showed a serum sodium 138, potassium 4.2, chloride 99, bicarbonate 31, anion gap of 8, BUN 17, creatinine 0.7. Estimated GFR was 86 mL per minute. Her glucose was 95, calcium was 8.6. Total bilirubin, AST, ALT, alkaline phosphatase were normal. Total protein was 6.4, albumin was 2.9. Her white cell count was 9900, hemoglobin 11, hematocrit 33, MCV 94, and platelet count of 189,000. Her C-reactive protein was only 0.7 mg per liter. ASSESSMENT: 1. Asymptomatic COVID-19 infection. 2. Parkinson's disease. 3. Hypothyroidism. 4. Peripheral neuropathy. 5. Type 2 diabetes mellitus. 6. History of gastroesophageal reflux disease. 7. Behavioral issues with paranoia. 8. Profound dementia with paranoia. PLAN: To continue with current plan of management. She has no further episodes of hypotension and has no more bleeding from her mouth. MARIAJOSE/LUZ DR: Froilan TID: [id number]
[2021-04-27 07:00] VITALS: BP 145/89
[2021-04-27] MEDS: DIVALPROEX ER 500 MG TAB.ER.24H PO SCH ×2 (09:19→20:28)
[2021-04-27] MEDS: LORazepam 1 MG TABLET PO SCH ×3 (09:20→20:27)
[2021-04-27] MEDS: PANTOPRAZOLE 40 MG TABLET. PO SCH (09:20)
[2021-04-27] MEDS: GABAPENTIN 100 MG CAPSULE. PO SCH ×3 (09:21→20:27)
[2021-04-27] MEDS: LISINOPRIL 10 MG TABLET PO SCH (09:21)
[2021-04-27] MEDS: ATORVASTATIN CALCIUM 20 MG TABLET PO SCH (09:22)
[2021-04-27] MEDS: POTASSIUM CHLORIDE 10 MEQ TABLET.ER. PO SCH (09:22)
[2021-04-27] MEDS: clonazePAM 2 MG TABLET PO SCH ×2 (09:23→20:28)
[2021-04-27] MEDS: METOPROLOL TART IMMED RELEASE 25 MG TABLET. PO SCH ×2 (09:23→20:29)
[2021-04-27] MEDS: ASPIRIN CHEWABLE 81 MG TABLET. PO SCH (09:23)
[2021-04-27] MEDS: FUROSEMIDE 20 MG TABLET PO SCH (09:24)
[2021-04-27] MEDS: ASCORBIC ACID 500 MG TABLET PO SCH ×2 (09:24→20:27)
[2021-04-27] MEDS: metFORMIN 500 MG TABLET PO SCH ×2 (09:24→17:39)
[2021-04-27] MEDS: CARBIDOPA/LEVODOPA 10/100MG TABLET PO SCH ×3 (09:26→20:28)
[2021-04-27] MEDS: BENZTROPINE MESYLATE 1 MG TABLET PO SCH ×2 (09:27→20:27)
[2021-04-27] MEDS: TROLAMINE SALICYLATE 10% TOPICAL CREAM 85GM JAR. TP SCH ×3 (09:28→20:29)
[2021-04-27] MEDS: risperiDONE 2 MG TABLET. PO SCH ×2 (15:28→20:29)
[2021-04-27 18:34] VITALS: BP 126/73
[2021-04-27] MEDS: rOPINIRole 1 MG TABLET. PO SCH (20:26)
--- NOTE | 2021-04-27 22:53 | PN ---
DATE: 04/27/2021 SUBJECTIVE: The patient is resting, slightly propped up in bed, sleeping comfortably, in no apparent distress. On questioning her, denied any complaint. The nursing staff did not voice any concern. OBJECTIVE: GENERAL: On examining her, she was pale, but not jaundiced or cyanosed. No lymphadenopathy, no thyromegaly, no jugular venous distention. No lower limb edema. VITAL SIGNS: Her heart rate was 85, blood pressure was 145/89, temperature was 98, respiratory rate was 18 and oxygen saturation was 98% on room air. The rest of clinical exam stable. LABORATORY DATA: All her lab woks seemed to be within acceptable range. D-dimer was only 0.26. ASSESSMENT: 1. Asymptomatic COVID-19 infection. 2. Parkinson's disease. 3. Hypothyroidism. 4. Peripheral neuropathy. 5. Type 2 diabetes mellitus. 6. History of gastroesophageal reflux disease. 7. Behavioral issues with paranoia. 8. Profound dementia. PLAN: To continue with her current plan of management. She apparently has no further episodes of hypotension and no more bleeding from her mouth after we extracted her loose tooth that was very loose and were worried that she might swallow it or inhale it. CHEYENNE DR: Froilan TID: [id number]
[2021-04-28 06:00] VITALS: BP 140/83
[2021-04-28] MEDS: ASCORBIC ACID 500 MG TABLET PO SCH ×2 (08:16→19:54)
[2021-04-28] MEDS: LISINOPRIL 10 MG TABLET PO SCH (08:16)
[2021-04-28] MEDS: clonazePAM 2 MG TABLET PO SCH ×2 (08:16→19:54)
[2021-04-28] MEDS: metFORMIN 500 MG TABLET PO SCH ×2 (08:16→17:00)
[2021-04-28] MEDS: DIVALPROEX ER 500 MG TAB.ER.24H PO SCH ×2 (08:17→19:55)
[2021-04-28] MEDS: ASPIRIN CHEWABLE 81 MG TABLET. PO SCH (08:17)
[2021-04-28] MEDS: PANTOPRAZOLE 40 MG TABLET. PO SCH (08:17)
[2021-04-28] MEDS: GABAPENTIN 100 MG CAPSULE. PO SCH ×3 (08:17→19:55)
[2021-04-28] MEDS: LORazepam 1 MG TABLET PO SCH ×3 (08:18→19:54)
[2021-04-28] MEDS: METOPROLOL TART IMMED RELEASE 25 MG TABLET. PO SCH ×2 (08:18→19:54)
[2021-04-28] MEDS: ATORVASTATIN CALCIUM 20 MG TABLET PO SCH (08:18)
[2021-04-28] MEDS: FUROSEMIDE 20 MG TABLET PO SCH (08:19)
[2021-04-28] MEDS: BENZTROPINE MESYLATE 1 MG TABLET PO SCH ×2 (08:19→19:55)
[2021-04-28] MEDS: CARBIDOPA/LEVODOPA 10/100MG TABLET PO SCH ×3 (08:20→19:57)
[2021-04-28] MEDS: POTASSIUM CHLORIDE 10 MEQ TABLET.ER. PO SCH (08:23)
[2021-04-28] MEDS: TROLAMINE SALICYLATE 10% TOPICAL CREAM 85GM JAR. TP SCH ×3 (09:00→19:57)
[2021-04-28] MEDS: risperiDONE 2 MG TABLET. PO SCH ×2 (13:30→19:57)
[2021-04-28 19:12] VITALS: BP 117/67
[2021-04-28] MEDS: rOPINIRole 1 MG TABLET. PO SCH (19:55)
--- NOTE | 2021-04-28 23:24 | PN ---
DATE: 04/28/2021 SUBJECTIVE: The patient is sitting at the edge of the bed, eating her supper comfortably, in no apparent distress. On questioning her, she denied any complaint. The nursing staff did not voice any concerns, stated that she continued to be asymptomatic. No fever, no chills, no rigors. No cough or phlegm. No shortness of breath. PHYSICAL EXAMINATION: GENERAL: When I examined her, she was somewhat pale, but no jaundice, cyanosis, no lymphadenopathy, no thyromegaly, no jugular venous distention. No limb edema. VITAL SIGNS: Her heart rate was 74, blood pressure 140/83, temperature was 97.7, respiratory rate was 20 and oxygen saturation was 96% on room air. HEAD, EYES, EARS, NOSE, AND THROAT: Normocephalic, atraumatic. NECK: Supple. HEART: Showed normal first and second heart sounds, no gallop, rub or murmur. CHEST: Clear to auscultation, no crepitation or rhonchi. ABDOMEN: Distended, soft, nontender. NEUROLOGIC: She is awake, alert, responding appropriately. She has marked Parkinsonian tremors. She is mostly wheelchair bound. LABORATORY DATA: Her blood sugar seems to be reasonably controlled. Her labs works stable. ASSESSMENT: 1. Asymptomatic COVID-19 infection. 2. Parkinson's disease. 3. Hypothyroidism. 4. Type 2 diabetes mellitus. 5. Peripheral neuropathy. 6. History of gastroesophageal reflux disease. 7. Behavioral issues with paranoia. 8. Profound dementia. PLAN: To continue with her current plan of management. She has no further episodes of hypotension. No more bleeding from her mouth after extracted her loose tooth. PEGGY DR: Froilan TID: [id number]
[2021-04-29 07:32] VITALS: BP 173/73
[2021-04-29] MEDS: ATORVASTATIN CALCIUM 20 MG TABLET PO SCH (07:59)
[2021-04-29] MEDS: ASPIRIN CHEWABLE 81 MG TABLET. PO SCH (07:59)
[2021-04-29] MEDS: metFORMIN 500 MG TABLET PO SCH (08:00)
[2021-04-29] MEDS: METOPROLOL TART IMMED RELEASE 25 MG TABLET. PO SCH (08:00)
[2021-04-29 08:01] VITALS: BP 173/73
[2021-04-29] MEDS: ASCORBIC ACID 500 MG TABLET PO SCH (08:01)
[2021-04-29] MEDS: LISINOPRIL 10 MG TABLET PO SCH (08:01)
[2021-04-29] MEDS: LORazepam 1 MG TABLET PO SCH (08:01)
[2021-04-29] MEDS: PANTOPRAZOLE 40 MG TABLET. PO SCH (08:01)
[2021-04-29] MEDS: GABAPENTIN 100 MG CAPSULE. PO SCH (08:02)
[2021-04-29] MEDS: DIVALPROEX ER 500 MG TAB.ER.24H PO SCH (08:02)
[2021-04-29] MEDS: BENZTROPINE MESYLATE 1 MG TABLET PO SCH (08:02)
[2021-04-29] MEDS: FUROSEMIDE 20 MG TABLET PO SCH (08:02)
[2021-04-29] MEDS: clonazePAM 2 MG TABLET PO SCH (08:02)
[2021-04-29] MEDS: CARBIDOPA/LEVODOPA 10/100MG TABLET PO SCH (08:02)
[2021-04-29] MEDS: POTASSIUM CHLORIDE 10 MEQ TABLET.ER. PO SCH (08:03)
[2021-04-29] MEDS: TROLAMINE SALICYLATE 10% TOPICAL CREAM 85GM JAR. TP SCH (08:03)
--- NOTE | 2021-04-29 22:25 | DS ---
DATE OF DISCHARGE: 04/29/2021 HOSPITAL COURSE: The patient is a 56-year-old female patient who was admitted originally to [facility] on 03/14 as a transfer from [facility] [address] in [place] where she was admitted on account of having crying fits, screaming, singing with very labile mood, not sleeping, refusing medication, refusing care, delusional, thinks the staff and male peer are trying to have sex with her. Apparently, an outpatient psychiatric intervention by adding clonazepam, Depakote was tried together with 1:1 sitter without really much improvement and therefore, she was admitted to [facility] for inpatient psychiatric stabilization. Unfortunately, she was noted on testing that she was positive for coronavirus, although she was asymptomatic and therefore, she was transitioned to the medical-surgical floor. She remained throughout her stay asymptomatic and was basically accepted at [facility] [address] in [place] today. PHYSICAL EXAMINATION: GENERAL: On examining her, she looked well and was clearly in no apparent respiratory distress. She was pale, no jaundice or cyanosis, no lymphadenopathy, no thyromegaly, no jugular venous distention, no limb edema. VITAL SIGNS: Her heart rate was 73, blood pressure was 173/73, temperature was 97.8, respiratory rate was 16 and oxygen saturation was 90%. HEAD, EYES, EARS, NOSE AND THROAT: Normocephalic, atraumatic. NECK: Supple. HEART: Showed normal first and second heart sounds, no gallop or murmur. CHEST: Clear to auscultation. No crepitation or rhonchi. ABDOMEN: Distended, soft, nontender. NEUROLOGIC: She was awake, alert, has marked prominent parkinsonian tremors. She is mostly wheelchair bound. LABORATORY DATA: Her lab work showed her blood sugar was well controlled. Her most recent lab work showed a serum sodium 138, potassium 4.2, chloride 99, bicarbonate 31, anion gap of 8, BUN 17, creatinine 0.7. Estimated GFR was 86 mL per minute. Her glucose was 95, calcium was 8.6. Total bilirubin, AST, ALT, alkaline phosphatase were normal. Total protein 6.4, albumin 2.9. Her white cell count was 9900, hemoglobin 11, hematocrit 33, MCV 94 and platelet count of 189,000. DISCHARGE MEDICATIONS: She was discharged back to [facility] [address] to continue on Tylenol 650 mg 3 times a day, ascorbic acid 500 mg twice a day, aspirin 81 mg once a day, atorvastatin 20 mg at bedtime, benztropine 1 mg twice a day, carbidopa/levodopa 10/100 three times a day, Celebrex 200 mg once a day, vitamin D3 50,000 once a week, clonazepam 2 mg twice a day, divalproex sodium for Depakote 1000 mg twice a day, ferrous sulfate 325 mg twice a day, fluphenazine 15 mg p.o. b.i.d., furosemide 20 mg daily, gabapentin 3 mL twice a day, Lactobacillus rhamnosus 1 capsule twice a day, lisinopril 10 mg once a day, lorazepam 1 mg 3 times a day, metformin 500 mg twice a day, metoprolol tartrate 12.5 mg twice a day, omeprazole 20 mg once a day, potassium chloride 10 mEq daily, risperidone 2 mg daily, risperidone 4 mg at bedtime, tramadol 50 mg every 6 hours and trolamine salicylate-aloe vera for Aspercreme apply topically 3 times a day. FINAL DISCHARGE DIAGNOSES: 1. Asymptomatic COVID-19 infection. 2. Parkinson's disease. 3. Hypothyroidism. 4. Type 2 diabetes mellitus. 5. Peripheral neuropathy. 6. History of gastroesophageal reflux disease. 7. Behavioral issue with paranoia. 8. Profound dementia. MARIAJOSE/JAYLENE DR: Froilan TID: [id number]
== END 2021-04-29 14:30 | DRG 178 ==
LOC: LND 19:32
PROVIDERS: ADMIT Hospitalist; ATTEND Hospitalist
DX: U07.1 COVID-19 (principal); E44.0 Moderate protein-calorie malnutrition; F02.80 Dementia in other diseases classified elsewhere, unspecified severity, without behavioral disturbance, psychotic disturbance, mood disturbance, and anxiety; I10 Essential (primary) hypertension; E78.5 Hyperlipidemia, unspecified; E11.42 Type 2 diabetes mellitus with diabetic polyneuropathy; K21.9 Gastro-esophageal reflux disease without esophagitis; E03.9 Hypothyroidism, unspecified; G20 Parkinson's disease; Z88.8 Allergy status to other drugs, medicaments and biological substances; Z68.36 Body mass index [BMI] 36.0-36.9, adult
CPT/HCPCS: 36415; 80053; 82947; 85007; 85025; 85379; 86140; J7040